=== PATIENT | female | born 1955 | race Caucasian/White ===

== ENCOUNTER → 2022-12-17 10:24 | Outpatient (CLI) | payer MEDICARE, SELFPAY | PROVIDERS: Family Provider Student in an Organized Health Care Education/Training Program; PCP Student in an Organized Health Care Education/Training Program; Referring Provider Student in an Organized Health Care Education/Training Program; Visit Provider Nurse Practitioner Family | DX: I89.0 Lymphedema, not elsewhere classified (principal); L97.222 Non-pressure chronic ulcer of left calf with fat layer exposed; G60.9 Hereditary and idiopathic neuropathy, unspecified | CPT/HCPCS: 11042; 11045; 87070; 87075; 87077; 87147; 87186; 87205; 99203; 99214 ==

== ENCOUNTER → 2022-12-20 15:11 | Outpatient (CLI) | payer MEDICARE, SELFPAY | PROVIDERS: PCP Student in an Organized Health Care Education/Training Program; Referring Provider Student in an Organized Health Care Education/Training Program; Visit Provider Surgery | DX: L97.222 Non-pressure chronic ulcer of left calf with fat layer exposed (principal); I89.0 Lymphedema, not elsewhere classified; R60.0 Localized edema; L53.9 Erythematous condition, unspecified; M79.662 Pain in left lower leg | CPT/HCPCS: 99213 ==

== ENCOUNTER → 2022-12-22 09:28 | Outpatient (CLI) | payer MEDICARE, SELFPAY | PROVIDERS: PCP Student in an Organized Health Care Education/Training Program; Referring Provider Student in an Organized Health Care Education/Training Program; Visit Provider Nurse Practitioner Family | DX: I89.0 Lymphedema, not elsewhere classified (principal); L97.222 Non-pressure chronic ulcer of left calf with fat layer exposed; M79.605 Pain in left leg | CPT/HCPCS: 99213 ==

== ENCOUNTER → 2022-12-24 09:06 | Outpatient (CLI) | payer MEDICARE, SELFPAY | PROVIDERS: Family Provider Student in an Organized Health Care Education/Training Program; PCP Student in an Organized Health Care Education/Training Program; Referring Provider Student in an Organized Health Care Education/Training Program; Visit Provider Nurse Practitioner Family | DX: I89.0 Lymphedema, not elsewhere classified (principal); L97.222 Non-pressure chronic ulcer of left calf with fat layer exposed; R60.0 Localized edema; L53.9 Erythematous condition, unspecified | CPT/HCPCS: 11042; 11045 ==

== ENCOUNTER → 2022-12-27 14:20 | Outpatient (CLI) | payer MEDICARE, SELFPAY | PROVIDERS: Family Provider Student in an Organized Health Care Education/Training Program; PCP Student in an Organized Health Care Education/Training Program; Referring Provider Student in an Organized Health Care Education/Training Program; Visit Provider Surgery | DX: I89.0 Lymphedema, not elsewhere classified (principal); L97.222 Non-pressure chronic ulcer of left calf with fat layer exposed | CPT/HCPCS: 99212 ==

== ENCOUNTER → 2022-12-29 14:43 | Outpatient (CLI) | payer MEDICARE, SELFPAY | PROVIDERS: Family Provider Student in an Organized Health Care Education/Training Program; PCP Student in an Organized Health Care Education/Training Program; Referring Provider Student in an Organized Health Care Education/Training Program; Visit Provider Surgery | DX: I89.0 Lymphedema, not elsewhere classified (principal); L97.222 Non-pressure chronic ulcer of left calf with fat layer exposed | CPT/HCPCS: 99212 ==

== ENCOUNTER → 2022-12-31 11:30 | Outpatient (CLI) | payer MEDICARE, SELFPAY | PROVIDERS: Family Provider Student in an Organized Health Care Education/Training Program; PCP Student in an Organized Health Care Education/Training Program; Referring Provider Student in an Organized Health Care Education/Training Program; Visit Provider Nurse Practitioner Family | DX: L97.222 Non-pressure chronic ulcer of left calf with fat layer exposed (principal); I89.0 Lymphedema, not elsewhere classified; L08.9 Local infection of the skin and subcutaneous tissue, unspecified; G90.09 Other idiopathic peripheral autonomic neuropathy; R60.0 Localized edema; L53.9 Erythematous condition, unspecified | CPT/HCPCS: 11042; 11045; 99212 ==

== ENCOUNTER → 2023-01-03 08:38 | Outpatient (CLI) | payer MEDICARE, SELFPAY | PROVIDERS: Family Provider Student in an Organized Health Care Education/Training Program; PCP Student in an Organized Health Care Education/Training Program; Referring Provider Ophthalmology; Visit Provider Surgery | DX: I89.0 Lymphedema, not elsewhere classified (principal); L97.222 Non-pressure chronic ulcer of left calf with fat layer exposed; M79.605 Pain in left leg | CPT/HCPCS: 99212 ==

== ENCOUNTER → 2023-01-05 09:10 | Outpatient (CLI) | payer MEDICARE, SELFPAY | PROVIDERS: Family Provider Student in an Organized Health Care Education/Training Program; PCP Student in an Organized Health Care Education/Training Program; Referring Provider Student in an Organized Health Care Education/Training Program; Visit Provider Surgery | DX: L97.929 Non-pressure chronic ulcer of unspecified part of left lower leg with unspecified severity (principal); R59.0 Localized enlarged lymph nodes; S81.802A Unspecified open wound, left lower leg, initial encounter; I89.0 Lymphedema, not elsewhere classified; R60.0 Localized edema; L53.9 Erythematous condition, unspecified | CPT/HCPCS: 87070; 87075; 87077; 87186; 87205; 93926; 99212 ==

== ENCOUNTER → 2023-01-05 10:36 | Outpatient (CLI) | payer MEDICARE, SELFPAY ==
--- NOTE | 2023-01-05 10:37 | DI.US.S_ITS ---
PROCEDURE: US ARTERIAL DUPLEX LE LT INDICATIONS: NON HEALING WOUND ON LEFT LOWER EXTREMITY, CALF TECHNIQUE: Color and pulse Doppler interrogation was performed of the left lower extremity arterial system, with image documentation. COMPARISON: None. FINDINGS: Examination is severely limited secondary to patient's body habitus and edema. Common femoral artery: 100 cm/sec, with monophasic flow. Deep femoral artery: 48 cm/sec, with monophasic flow. Proximal superficial femoral artery: 104 cm/sec, with monophasic flow. Mid superficial femoral artery: Not visualized Distal superficial femoral artery: Not visualized Popliteal artery: Not visualized Posterior tibial artery: Not visualized Anterior tibial artery/dorsalis pedis: not visualized Paredes-scale imaging description: Limited examination. Left inguinal lymph node measuring 38 mm x 18 mm x 38 mm. IMPRESSION: 1. Limited examination as above. 2. Findings suggestive of left aortoiliac inflow stenosis. 3. Left inguinal lymphadenopathy, with differential considerations including reactive adenopathy, metastatic disease, and lymphoma. Dictated by: Jose Rafael Harrell M.D. on 01/05/2023 at 11:42 Transcribed by: KATHE on 01/05/2023 at 11:44 Approved by: Jose Rafael Harrell M.D. on 01/05/2023 at 16:15
== END ==
PROVIDERS: Family Provider Student in an Organized Health Care Education/Training Program; PCP Student in an Organized Health Care Education/Training Program; Referring Provider Nurse Practitioner Family; Visit Provider Nurse Practitioner Family
DX: L97.929 Non-pressure chronic ulcer of unspecified part of left lower leg with unspecified severity (principal); R59.0 Localized enlarged lymph nodes
CPT/HCPCS: 93926

== ENCOUNTER → 2023-01-07 08:40 | Outpatient (CLI) | payer MEDICARE, SELFPAY | PROVIDERS: Family Provider Student in an Organized Health Care Education/Training Program; PCP Student in an Organized Health Care Education/Training Program; Referring Provider Ophthalmology; Visit Provider Nurse Practitioner Family | DX: L97.222 Non-pressure chronic ulcer of left calf with fat layer exposed (principal); I89.0 Lymphedema, not elsewhere classified; G90.09 Other idiopathic peripheral autonomic neuropathy; L08.9 Local infection of the skin and subcutaneous tissue, unspecified; L53.9 Erythematous condition, unspecified; R60.0 Localized edema | CPT/HCPCS: 99213 ==

== ENCOUNTER → 2023-01-10 11:21 | Outpatient (CLI) | payer MEDICARE, SELFPAY | PROVIDERS: Family Provider Student in an Organized Health Care Education/Training Program; PCP Student in an Organized Health Care Education/Training Program; Referring Provider Student in an Organized Health Care Education/Training Program; Visit Provider Surgery | DX: I89.0 Lymphedema, not elsewhere classified (principal); L97.222 Non-pressure chronic ulcer of left calf with fat layer exposed; R60.0 Localized edema; L53.9 Erythematous condition, unspecified | CPT/HCPCS: 99213 ==

== ENCOUNTER → 2023-01-12 08:43 | Outpatient (CLI) | payer MEDICARE, SELFPAY | PROVIDERS: Family Provider Student in an Organized Health Care Education/Training Program; PCP Student in an Organized Health Care Education/Training Program; Referring Provider Student in an Organized Health Care Education/Training Program; Visit Provider Surgery | DX: I89.0 Lymphedema, not elsewhere classified (principal); L97.222 Non-pressure chronic ulcer of left calf with fat layer exposed | CPT/HCPCS: 99212 ==

== ENCOUNTER → 2023-01-14 08:59 | Outpatient (CLI) | payer MEDICARE, SELFPAY | PROVIDERS: Family Provider Student in an Organized Health Care Education/Training Program; PCP Student in an Organized Health Care Education/Training Program; Referring Provider Ophthalmology; Visit Provider Physician Assistant | DX: I89.0 Lymphedema, not elsewhere classified (principal); L97.322 Non-pressure chronic ulcer of left ankle with fat layer exposed | CPT/HCPCS: 99212 ==

== ENCOUNTER → 2023-01-18 09:32 | Outpatient (CLI) | payer MEDICARE, SELFPAY | PROVIDERS: Family Provider Student in an Organized Health Care Education/Training Program; PCP Student in an Organized Health Care Education/Training Program; Referring Provider Ophthalmology; Visit Provider Surgery | DX: L97.222 Non-pressure chronic ulcer of left calf with fat layer exposed (principal); I89.0 Lymphedema, not elsewhere classified; L89.891 Pressure ulcer of other site, stage 1; G90.09 Other idiopathic peripheral autonomic neuropathy; C54.1 Malignant neoplasm of endometrium; E66.9 Obesity, unspecified; Z68.44 Body mass index [BMI] 60.0-69.9, adult; R60.0 Localized edema; L53.9 Erythematous condition, unspecified | CPT/HCPCS: 11042; 99212; 99214 ==

== ENCOUNTER → 2023-01-20 09:28 | Outpatient (CLI) | payer MEDICARE, SELFPAY | PROVIDERS: Family Provider Student in an Organized Health Care Education/Training Program; PCP Student in an Organized Health Care Education/Training Program; Referring Provider Ophthalmology; Visit Provider Surgery | DX: I89.0 Lymphedema, not elsewhere classified (principal); L97.222 Non-pressure chronic ulcer of left calf with fat layer exposed; L89.891 Pressure ulcer of other site, stage 1; R60.0 Localized edema | CPT/HCPCS: 99213 ==

== ENCOUNTER → 2023-01-25 10:37 | Outpatient (CLI) | payer MEDICARE, SELFPAY | PROVIDERS: Family Provider Student in an Organized Health Care Education/Training Program; PCP Student in an Organized Health Care Education/Training Program; Referring Provider Ophthalmology; Visit Provider Surgery | DX: I89.0 Lymphedema, not elsewhere classified (principal); L08.9 Local infection of the skin and subcutaneous tissue, unspecified; L97.222 Non-pressure chronic ulcer of left calf with fat layer exposed; L89.891 Pressure ulcer of other site, stage 1; R60.0 Localized edema | CPT/HCPCS: 11042 ==

== ENCOUNTER → 2023-01-28 10:00 | Outpatient (CLI) | payer MEDICARE, SELFPAY | PROVIDERS: Family Provider Student in an Organized Health Care Education/Training Program; PCP Student in an Organized Health Care Education/Training Program; Referring Provider Student in an Organized Health Care Education/Training Program; Visit Provider Physician Assistant | DX: I89.0 Lymphedema, not elsewhere classified (principal); L97.222 Non-pressure chronic ulcer of left calf with fat layer exposed; R60.0 Localized edema; L89.891 Pressure ulcer of other site, stage 1 | CPT/HCPCS: 29581 ==

== ENCOUNTER → 2023-02-01 08:35 | Outpatient (CLI) | payer MEDICARE, SELFPAY | PROVIDERS: Family Provider Student in an Organized Health Care Education/Training Program; PCP Student in an Organized Health Care Education/Training Program; Referring Provider Ophthalmology; Visit Provider Surgery | DX: I89.0 Lymphedema, not elsewhere classified (principal); L97.222 Non-pressure chronic ulcer of left calf with fat layer exposed; L89.891 Pressure ulcer of other site, stage 1; L97.811 Non-pressure chronic ulcer of other part of right lower leg limited to breakdown of skin | CPT/HCPCS: 11042; 97597; 97598; 99213 ==

== ENCOUNTER → 2023-02-04 08:45 | Outpatient (CLI) | payer MEDICARE, SELFPAY | PROVIDERS: Family Provider Student in an Organized Health Care Education/Training Program; PCP Student in an Organized Health Care Education/Training Program; Referring Provider Student in an Organized Health Care Education/Training Program; Visit Provider Physician Assistant | DX: I89.0 Lymphedema, not elsewhere classified (principal); L97.222 Non-pressure chronic ulcer of left calf with fat layer exposed; L89.891 Pressure ulcer of other site, stage 1; L97.811 Non-pressure chronic ulcer of other part of right lower leg limited to breakdown of skin; R60.0 Localized edema | CPT/HCPCS: 29581 ==

== ENCOUNTER → 2023-02-08 08:31 | Outpatient (CLI) | payer MEDICARE, SELFPAY | PROVIDERS: Family Provider Student in an Organized Health Care Education/Training Program; PCP Student in an Organized Health Care Education/Training Program; Referring Provider Ophthalmology; Visit Provider Surgery | DX: I89.0 Lymphedema, not elsewhere classified (principal); L08.9 Local infection of the skin and subcutaneous tissue, unspecified; L97.222 Non-pressure chronic ulcer of left calf with fat layer exposed; L89.891 Pressure ulcer of other site, stage 1; L97.812 Non-pressure chronic ulcer of other part of right lower leg with fat layer exposed; R60.0 Localized edema | CPT/HCPCS: 15271; 97597; 97598; Q4196 ==

== ENCOUNTER → 2023-02-11 09:30 | Outpatient (CLI) | payer MEDICARE, SELFPAY | PROVIDERS: Family Provider Student in an Organized Health Care Education/Training Program; PCP Student in an Organized Health Care Education/Training Program; Referring Provider Ophthalmology; Visit Provider Physician Assistant | DX: I89.0 Lymphedema, not elsewhere classified (principal); L97.222 Non-pressure chronic ulcer of left calf with fat layer exposed; L89.891 Pressure ulcer of other site, stage 1; L97.812 Non-pressure chronic ulcer of other part of right lower leg with fat layer exposed | CPT/HCPCS: 29581 ==

== ENCOUNTER → 2023-02-15 10:34 | Outpatient (CLI) | payer MEDICARE, SELFPAY | PROVIDERS: Family Provider Student in an Organized Health Care Education/Training Program; PCP Student in an Organized Health Care Education/Training Program; Referring Provider Student in an Organized Health Care Education/Training Program; Visit Provider Surgery | DX: I89.0 Lymphedema, not elsewhere classified (principal); L97.222 Non-pressure chronic ulcer of left calf with fat layer exposed; L89.891 Pressure ulcer of other site, stage 1; L97.812 Non-pressure chronic ulcer of other part of right lower leg with fat layer exposed | CPT/HCPCS: 11042; 87070; 87075; 87205; 97597; 99213 ==

== ENCOUNTER → 2023-02-21 14:57 | Outpatient (CLI) | payer MEDICARE, SELFPAY | PROVIDERS: Family Provider Student in an Organized Health Care Education/Training Program; PCP Student in an Organized Health Care Education/Training Program; Referring Provider Student in an Organized Health Care Education/Training Program; Visit Provider Surgery | DX: I89.0 Lymphedema, not elsewhere classified (principal); L97.222 Non-pressure chronic ulcer of left calf with fat layer exposed; L89.891 Pressure ulcer of other site, stage 1; L97.812 Non-pressure chronic ulcer of other part of right lower leg with fat layer exposed | CPT/HCPCS: 11042; 97597; 99212; 99213 ==

== ENCOUNTER → 2023-02-24 09:59 | Outpatient (CLI) | payer MEDICARE, SELFPAY | PROVIDERS: Family Provider Student in an Organized Health Care Education/Training Program; PCP Student in an Organized Health Care Education/Training Program; Referring Provider Student in an Organized Health Care Education/Training Program; Visit Provider Surgery | DX: I89.0 Lymphedema, not elsewhere classified (principal); S81.802A Unspecified open wound, left lower leg, initial encounter; S81.801A Unspecified open wound, right lower leg, initial encounter; L89.891 Pressure ulcer of other site, stage 1; R60.0 Localized edema | CPT/HCPCS: 29581 ==

== ENCOUNTER → 2023-02-28 09:15 | Outpatient (CLI) | payer MEDICARE, SELFPAY | PROVIDERS: Family Provider Student in an Organized Health Care Education/Training Program; PCP Student in an Organized Health Care Education/Training Program; Referring Provider Student in an Organized Health Care Education/Training Program; Visit Provider Surgery | DX: I89.0 Lymphedema, not elsewhere classified (principal); L97.222 Non-pressure chronic ulcer of left calf with fat layer exposed; L97.812 Non-pressure chronic ulcer of other part of right lower leg with fat layer exposed; L89.891 Pressure ulcer of other site, stage 1; R60.0 Localized edema; L03.115 Cellulitis of right lower limb; G62.9 Polyneuropathy, unspecified; C54.1 Malignant neoplasm of endometrium; E66.01 Morbid (severe) obesity due to excess calories; Z68.44 Body mass index [BMI] 60.0-69.9, adult; Z92.21 Personal history of antineoplastic chemotherapy; Z59.02 Unsheltered homelessness | CPT/HCPCS: 11042; 87070; 87075; 87186; 87205; 99213 ==

== ENCOUNTER → 2023-03-08 08:51 | Outpatient (CLI) | payer MEDICARE, SELFPAY | PROVIDERS: Family Provider Student in an Organized Health Care Education/Training Program; PCP Student in an Organized Health Care Education/Training Program; Referring Provider Student in an Organized Health Care Education/Training Program; Visit Provider Surgery | DX: I89.0 Lymphedema, not elsewhere classified (principal); L97.222 Non-pressure chronic ulcer of left calf with fat layer exposed; L97.812 Non-pressure chronic ulcer of other part of right lower leg with fat layer exposed | CPT/HCPCS: 11042 ==

== ENCOUNTER → 2023-03-10 09:10 | Outpatient (CLI) | payer MEDICARE, SELFPAY | PROVIDERS: Family Provider Student in an Organized Health Care Education/Training Program; PCP Student in an Organized Health Care Education/Training Program; Referring Provider Student in an Organized Health Care Education/Training Program; Visit Provider Surgery | DX: I89.0 Lymphedema, not elsewhere classified (principal); L97.222 Non-pressure chronic ulcer of left calf with fat layer exposed; R60.0 Localized edema | CPT/HCPCS: 99214 ==

== ENCOUNTER → 2023-03-15 08:56 | Outpatient (CLI) | payer MEDICARE, SELFPAY | PROVIDERS: Family Provider Student in an Organized Health Care Education/Training Program; PCP Student in an Organized Health Care Education/Training Program; Referring Provider Ophthalmology; Visit Provider Surgery | DX: I89.0 Lymphedema, not elsewhere classified (principal); L97.222 Non-pressure chronic ulcer of left calf with fat layer exposed; C54.1 Malignant neoplasm of endometrium | CPT/HCPCS: 11042 ==

== ENCOUNTER → 2023-03-17 09:27 | Outpatient (CLI) | payer MEDICARE, SELFPAY | PROVIDERS: Family Provider Student in an Organized Health Care Education/Training Program; PCP Student in an Organized Health Care Education/Training Program; Referring Provider Student in an Organized Health Care Education/Training Program; Visit Provider Surgery | DX: I89.0 Lymphedema, not elsewhere classified (principal); L97.222 Non-pressure chronic ulcer of left calf with fat layer exposed | CPT/HCPCS: 99214 ==

== ENCOUNTER → 2023-03-22 08:58 | Outpatient (CLI) | payer MEDICARE, SELFPAY | PROVIDERS: Family Provider Student in an Organized Health Care Education/Training Program; PCP Student in an Organized Health Care Education/Training Program; Referring Provider Ophthalmology; Visit Provider Surgery | DX: I89.0 Lymphedema, not elsewhere classified (principal); L97.222 Non-pressure chronic ulcer of left calf with fat layer exposed; R60.0 Localized edema | CPT/HCPCS: 29581 ==

== ENCOUNTER → 2023-03-29 08:38 | Outpatient (CLI) | payer MEDICARE, SELFPAY | PROVIDERS: Family Provider Student in an Organized Health Care Education/Training Program; PCP Student in an Organized Health Care Education/Training Program; Referring Provider Ophthalmology; Visit Provider Surgery | DX: I89.0 Lymphedema, not elsewhere classified (principal); L97.222 Non-pressure chronic ulcer of left calf with fat layer exposed; G90.09 Other idiopathic peripheral autonomic neuropathy | CPT/HCPCS: 11042; 99212; 99213 ==

== ENCOUNTER → 2023-03-31 09:01 | Outpatient (CLI) | payer MEDICARE, SELFPAY | PROVIDERS: Family Provider Student in an Organized Health Care Education/Training Program; PCP Student in an Organized Health Care Education/Training Program; Referring Provider Ophthalmology; Visit Provider Surgery | DX: I89.0 Lymphedema, not elsewhere classified (principal); S81.802A Unspecified open wound, left lower leg, initial encounter; R60.0 Localized edema | CPT/HCPCS: 99212 ==

== ENCOUNTER → 2023-04-05 08:26 | Outpatient (CLI) | payer MEDICARE, SELFPAY | PROVIDERS: Family Provider Student in an Organized Health Care Education/Training Program; PCP Student in an Organized Health Care Education/Training Program; Referring Provider Ophthalmology; Visit Provider Surgery | DX: I89.0 Lymphedema, not elsewhere classified (principal); L97.222 Non-pressure chronic ulcer of left calf with fat layer exposed; G60.9 Hereditary and idiopathic neuropathy, unspecified; R60.0 Localized edema | CPT/HCPCS: 11042 ==

== ENCOUNTER → 2023-04-07 08:31 | Outpatient (CLI) | payer MEDICARE, SELFPAY | PROVIDERS: Family Provider Student in an Organized Health Care Education/Training Program; PCP Student in an Organized Health Care Education/Training Program; Referring Provider Ophthalmology; Visit Provider Surgery | DX: L97.221 Non-pressure chronic ulcer of left calf limited to breakdown of skin (principal) | CPT/HCPCS: 99213 ==

== ENCOUNTER → 2023-04-12 08:38 | Outpatient (CLI) | payer MEDICARE, SELFPAY | PROVIDERS: Family Provider Student in an Organized Health Care Education/Training Program; PCP Student in an Organized Health Care Education/Training Program; Referring Provider Ophthalmology; Visit Provider Surgery | DX: I89.0 Lymphedema, not elsewhere classified (principal); L97.222 Non-pressure chronic ulcer of left calf with fat layer exposed; C54.1 Malignant neoplasm of endometrium; R60.0 Localized edema | CPT/HCPCS: 99212; 99213 ==

== ENCOUNTER → 2023-04-19 08:35 | Outpatient (CLI) | payer MEDICARE, SELFPAY | PROVIDERS: Family Provider Student in an Organized Health Care Education/Training Program; PCP Student in an Organized Health Care Education/Training Program; Referring Provider Ophthalmology; Visit Provider Surgery | DX: I89.0 Lymphedema, not elsewhere classified (principal); R60.0 Localized edema | CPT/HCPCS: 99212; 99213 ==

== ENCOUNTER → 2023-05-03 09:17 | Outpatient (CLI) | payer MEDICARE, SELFPAY | PROVIDERS: Family Provider Student in an Organized Health Care Education/Training Program; PCP Student in an Organized Health Care Education/Training Program; Referring Provider Ophthalmology; Visit Provider Surgery | DX: I89.0 Lymphedema, not elsewhere classified (principal) | CPT/HCPCS: 99212; 99213 ==

== ENCOUNTER → 2023-08-18 15:32 | Outpatient (CLI) | payer MEDICARE, SELFPAY | PROVIDERS: Family Provider Student in an Organized Health Care Education/Training Program; PCP Student in an Organized Health Care Education/Training Program; Referring Provider Ophthalmology; Visit Provider Physician Assistant | DX: S91.101A Unspecified open wound of right great toe without damage to nail, initial encounter (principal); R60.0 Localized edema; L53.9 Erythematous condition, unspecified | CPT/HCPCS: 11042; 99213; 99214 ==

== ENCOUNTER → 2023-08-24 13:25 | Outpatient (CLI) | payer MEDICARE, SELFPAY | LOC: WC 13:26 | PROVIDERS: Family Provider Student in an Organized Health Care Education/Training Program; PCP Student in an Organized Health Care Education/Training Program; Referring Provider Student in an Organized Health Care Education/Training Program; Visit Provider Surgery | DX: S91.301A Unspecified open wound, right foot, initial encounter (principal); R60.0 Localized edema; L53.9 Erythematous condition, unspecified | CPT/HCPCS: 99212 ==

== ENCOUNTER 2023-09-01 13:00 | Outpatient (RCR) | payer MEDICARE, SELFPAY ==
--- NOTE | 2023-01-11 16:24 | PT.OIE ---
Current Diagnoses Lymphedema, not elsewhere classified (01/11/23) Non-pressure chronic ulcer of other part of left lower leg with fat layer exposed (01/11/23) Soft tissue disorder, unspecified (01/11/23) Difficulty in walking, not elsewhere classified (01/11/23) Visit Care Team Role Provider Type Geovani Elder DO Family Provider Non-Staff Primary Care Provider Specialty: Medical Address: [address] [place] [address] Dr. Mike De Los Santos, [place], [address] Email: Nicolás Schrader MD Attending Provider Physician Referring Provider Specialty: Wound Care Address: [address] [place] [address], [id number] Email: [email or web address] Physical Therapy Initial Evaluation PT-OP-A Visit Information Start: 01/10/23 16:14 Freq: Status: Active Protocol: Document 01/11/23 07:56 [facility] (Rec: 01/11/23 09:[address] [facility] [id number]) Out-Patient Physical Therapy Visit Information Visit Information Visit Type Initial Evaluation Visit Start Time 08:00 Visit Stop Time 09:25 Total Visit Minutes 85 Visit Number 1 Evaluation Information Evaluation Date 01/11/23 Precautions Precautions endometrial cancer, nonhealing wound left LE PT-OP-B Current Condition Start: 01/10/23 16:14 Freq: Status: Active Protocol: Document 01/11/23 07:56 [facility] (Rec: 01/11/23 09:[address] [facility] [id number]) Current Condition History of Current Condition Onset Date 22 months Current Complaints stella LE lymphedema History of Current Condition was travelling and knew something was wrong with her left leg, went to ER diagnosed with cellulitis stella LE's, was in hospital 28 days. 3 days before discharge developed lymphedema. Went to [facility] wound care, did not have good experience, no recommendation for PT. Now going to wound care at [facility] and PT was recommended. Using Vaseline due to dryness in legs. Has had multiple infections since that time. Then last year having vaginal bleeding and diagnosed with endometrial cancer. Has had 3 treatments of chemo. Can't have Obgyn surgery until infection in leg healed, possiblty more chemo. Sees oncologist tomorrow Dr. Merrick Hurtado in [place] at [facility]. Prior Treatments and Tests PMH: cellulitis, lymphedema stella LE's, peripheral neuropathy, morbid obesity, hysteroscopy, chronic non- healing ulcer left LE Future Testing and Treatments Planned Preparing for Obgyn surgery for endometrial cancer. Treatment Goals Patient/Caregiver Goals Decrease lymphedema Prior Functional Status Baseline Function- ADL's Modified Independent Baseline Function- Mobility Modified Independent Current Functional Impairments (Reported) Functional Limitations- Mobility/Gait uses FWW, PT adjusted today due to back much lower than front; patient reported can stand up better now. PT-OP-C Subjective Start: 01/10/23 16:14 Freq: Status: Active Protocol: Document 01/11/23 07:[address] [facility] (Rec: 01/11/23 16:[address] [facility] [id number]) Patient Questionnaires Lymphedema Life Impact Score Lymphedema Score 56 OP-PT Pain Assessment Pain Assessment Grid Paper Pain Assessment Grid Completed No PT-OP-G Mobility & Gait Start: 01/10/23 16:14 Freq: Status: Active Protocol: Document 01/11/23 07:[address] [facility] (Rec: 01/11/23 16:[address] [facility] [id number]) OP Mobility Evaluation Bed Mobility Supine to and from Sit mod assist for LE's Transfers Sit to Stand use of FWW with SBA OP Gait Assessment Gait Gait Assistance Required: Independent Distance (Feet) 60 Assistive Devices Assistive Device Front Wheeled Walker Orthotic/Prosthetic Devices or Brace: No Gait Deviations General Gait Pattern Decreased Stride Length, Decreased Feet Clearance, Flexed Trunk,Wide Based Gait Comments Gait Comments limited by weight of legs due to lymphedema PT-OP-J Posture/Palpation/Skin Start: 01/10/23 16:14 Freq: Status: Active Protocol: Document 01/11/23 07:[address] [facility] (Rec: 01/11/23 16:[address] [facility] [id number]) Skin Assessment Other Assessments Skin Assessment Comments hyperkeratosis and elephatiasis stella LE's PT-OP-K Range of Motion Start: 01/10/23 16:14 Freq: Status: Active Protocol: Document 01/11/23 07:[address] [facility] (Rec: 01/11/23 16:[address] [facility] [id number]) Hip Goniometric Range of Motion Hip ROM Limitations Hip ROM Limitations Swelling Comments moderate limitations Knee Goniometric Range of Motion Knee ROM Limitations Knee ROM Limitations Swelling Comments moderate limitations Ankle and Foot Goniometric Range of Motion Ankle and Foot ROM Limitations ROM Limitations Swelling Comments moderate limitations PT-OP-M Strength Start: 01/10/23 16:14 Freq: Status: Active Protocol: Document 01/11/23 07:[address] [facility] (Rec: 01/11/23 16:[address] [facility] [id number]) Hip Strength Hip Manual Muscle Testing stella Comments less than anti-gravity stregnth, requires assistance for legs on and off treatment table. No MMT Knee Strength Knee Manual Muscle Testing stella Comments has anti-gravity strength ext. No MMT Ankle/Foot Strength Ankle and Foot Manual Muscle Testing stella Comments has anti gravity strength. No MMT PT-OP-N Lymphedema Start: 01/10/23 16:14 Freq: Status: Active Protocol: Document 01/11/23 07:[address] [facility] (Rec: 01/11/23 09:[address] [facility] [id number]) Lymphedema Measurements Lower Extremity Circumference Measurements Right Affected MT Heads 27 cm Mid-foot 29.3 cm Medial Malleolus 43.8 cm 10 cm From Medial Malleolus 62.5 cm 20 cm From Medial Malleolus 76 cm 30 cm From Medial Malleolus 85.9 cm 40 cm From Medial Malleolus 84.5 cm 50 cm From Medial Malleolus 88.6 cm 60 cm From Medial Malleolus 81.5 cm 70 cm From Medial Malleolus 88.5 cm Knee Joint 78.2 cm Left Affected MT Heads 25.6 cm Mid-foot 28.5 cm Medial Malleolus 50.7 cm 10 cm From Medial Malleolus 57 cm 20 cm From Medial Malleolus 66.4 cm 30 cm From Medial Malleolus 75.3 cm 40 cm From Medial Malleolus 74.8 cm 50 cm From Medial Malleolus 77.3 cm 60 cm From Medial Malleolus 82.7 cm 70 cm From Medial Malleolus 84.3 cm Knee Joint 74.8 cm - Over wound dressing distal left LE PT-OP-Q Treatments Start: 01/10/23 16:14 Freq: Status: Active Protocol: Document 01/11/23 07:[address] [facility] (Rec: 01/11/23 16:[address] [facility] [id number]) Lymphedema Treatment Lymphedema Wrapping Body Location stella LE's Materials toe wraps, Artiflex (3 rolls), Comprilan (6,8,10,12) toes to knees Sequential Lymphedema Exercises Comments instructed, HO issued Compression Garment Assessment Compression Garment Assessment Details written information given Patient Education Lymphedema Pathology instructed Lymphedema Prevention HO issued Lymphedema Precautions HO issued Compression Garments written information issued Self Manual Lymphatic Drainage given information for videos Sequential Lymphedema Exercises given written HO PT-OP-T Assessment and Plan Start: 01/10/23 16:14 Freq: Status: Active Protocol: Document 01/11/23 07:[address] [facility] (Rec: 01/11/23 09:[address] [facility] [id number]) Physical Therapy Assessment Rehab Potential Rehabilitation Potential Good Impairments Impairments Activity Tolerance,Edema,Soft Tissue Mobility Goals Three Impairment impaired mobility and activity tolerance related to size of her legs Impairment uses FWW and doesn't go out of the house other than for medical appointments Short Term Goal (STG) Patient will be able to ambulate 500 ft with SPC with min assist STG Duration 03/13/23 Alf Goal (LTG) Patient will be able to ambulate at least 1000 feet with least restrictive device to allow for return to community mobility LTG Duration 04/13/23 Two Impairment LYmphedema life impact scale 56% Short Term Goal (STG) Decrease Lymphedema life impact scale to no greater than 40% STG Duration 03/13/23 Alf Goal (LTG) Decrease lymphedema life impact scale to no greater than 25% as measure of improved activity tolerance and quality of life LTG Duration 04/13/23 One Impairment Lymphedema stella LE's Short Term Goal (STG) Patient to be instructed in all aspects of lymphedema care to include skin care, MLD, compression, and lymphedema exercises STG Duration 03/13/23 Alf Goal (LTG) Patient to be independent in all aspects of lymphedema care , LE circumferential measurements to be stable (no increase or decrease greater than 1 cm over the course of 1 week), and patient to obtain appropriate compression garments for stella LE lymphedema managements and possibly sequential pneumatic pump. LTG Duration 04/13/23 Assessment Summary Assessment Patient presents to PT with severe function-limiting lymphedema bilateral LE's right greater than left, non- healing wound left LE. She has hyperkeratosis and elephantiasis stella LE's. Has never had any treatment for the lymphedema except was prescribed a diuretic. [facility] wound clinic who prescribed PT for lymphedema treatment. Patient evaluated today and lymphedema bandaging was provided from toes to knees, plan for bandaging toes to upper thigh next session pending tolerance. Patient education regarding self- managment for lymphedema initiated today Patient will benefit from PT for lymphedema management including manual lymphatic drainage, compression, skin care, lymphedema exercises with patient education for self- management. When size of legs reduced and stable will facilitate patient obtaining appropriate compression garments for stella LE's. Physical Therapy Plan Frequency and Duration Frequency of Treatment 24 Duration of treatment (weeks) 12 Plan of Care Start Date 01/11/23 Plan of Care End Date 04/13/23 Therapeutic Interventions Therapeutic Interventions Home Exercise Program, Lymphedema Management,Manual Therapy,Patient/Caregiver Education,Self-Care/Home Management,Therapeutic Activities,Therapeutic Exercises Next Visit Focus/Plan Next Note Type Treatment Note Next Visit Plan Continue patient education, evaluate response to compression bandaging and continue, thigh high next session. MLD and lymphedema exercises as time allows.
--- NOTE | 2023-01-11 16:24 | PT.OPPOC ---
Physical, Occupational & Speech Therapy At [facility] Current Diagnoses Lymphedema, not elsewhere classified (01/11/23) Non-pressure chronic ulcer of other part of left lower leg with fat layer exposed (01/11/23) Soft tissue disorder, unspecified (01/11/23) Difficulty in walking, not elsewhere classified (01/11/23) Visit Care Team Role Provider Type Geovani Elder DO Family Provider Non-Staff Primary Care Provider Specialty: Medical Address: [address] [place] [address] [address], [place], [address] Email: Nicolás Schrader MD Attending Provider Physician Referring Provider Specialty: Wound Care Address: [address] [place] [address], [address] Email: [email or web address] Plan Of Care PT-OP-T Assessment and Plan Start: 01/10/23 16:14 Freq: Status: Active Protocol: Document 01/11/23 07:56 [facility] (Rec: 01/11/23 09:46 [facility] [id number]) Physical Therapy Assessment Rehab Potential Rehabilitation Potential Good Impairments Impairments Activity Tolerance,Edema,Soft Tissue Mobility Goals Three Impairment impaired mobility and activity tolerance related to size of her legs Impairment uses FWW and doesn't go out of the house other than for medical appointments Short Term Goal (STG) Patient will be able to ambulate 500 ft with SPC with min assist STG Duration 03/13/23 Reproductive Healthcare Assistant Goal (LTG) Patient will be able to ambulate at least 1000 feet with least restrictive device to allow for return to community mobility LTG Duration 04/13/23 Two Impairment LYmphedema life impact scale 56% Short Term Goal (STG) Decrease Lymphedema life impact scale to no greater than 40% STG Duration 03/13/23 Reproductive Healthcare Assistant Goal (LTG) Decrease lymphedema life impact scale to no greater than 25% as measure of improved activity tolerance and quality of life LTG Duration 04/13/23 One Impairment Lymphedema stella LE's Short Term Goal (STG) Patient to be instructed in all aspects of lymphedema care to include skin care, MLD, compression, and lymphedema exercises STG Duration 03/13/23 Reproductive Healthcare Assistant Goal (LTG) Patient to be independent in all aspects of lymphedema care , LE circumferential measurements to be stable (no increase or decrease greater than 1 cm over the course of 1 week), and patient to obtain appropriate compression garments for stella LE lymphedema managements and possibly sequential pneumatic pump. LTG Duration 04/13/23 Assessment Summary Assessment Patient presents to PT with severe function-limiting lymphedema bilateral LE's right greater than left, non- healing wound left LE. She has hyperkeratosis and elephantiasis stella LE's. Has never had any treatment for the lymphedema except was prescribed a diuretic. [facility] wound clinic who prescribed PT for lymphedema treatment. Patient evaluated today and lymphedema bandaging was provided from toes to knees, plan for bandaging toes to upper thigh next session pending tolerance. Patient education regarding self- managment for lymphedema initiated today Patient will benefit from PT for lymphedema management including manual lymphatic drainage, compression, skin care, lymphedema exercises with patient education for self- management. When size of legs reduced and stable will facilitate patient obtaining appropriate compression garments for stella LE's. Physical Therapy Plan Frequency and Duration Frequency of Treatment 24 Duration of treatment (weeks) 12 Plan of Care Start Date 01/11/23 Plan of Care End Date 04/13/23 Therapeutic Interventions Therapeutic Interventions Home Exercise Program, Lymphedema Management,Manual Therapy,Patient/Caregiver Education,Self-Care/Home Management,Therapeutic Activities,Therapeutic Exercises Next Visit Focus/Plan Next Note Type Treatment Note Next Visit Plan Continue patient education, evaluate response to compression bandaging and continue, thigh high next session. MLD and lymphedema exercises as time allows. Plan of Care Dates Plan of Care Start Date 01/11/23 Plan of Care End Date 04/13/23 Electronically Signed by: Lizeth Howard, PT 01/11/23 0033 If you are in agreement with this Plan of Care, please return a signed and dated copy. I have reviewed this Plan of Care and certify that the skilled therapy services above are required to meet the patient?s needs. Physician Signature Date Printed Name and Credentials Clinical Instructor Signature Printed Name and Credentials
--- NOTE | 2023-01-12 16:48 | PT.OTN ---
Current Diagnoses Lymphedema, not elsewhere classified (01/12/23) Non-pressure chronic ulcer of other part of left lower leg with fat layer exposed (01/12/23) Soft tissue disorder, unspecified (01/12/23) Difficulty in walking, not elsewhere classified (01/12/23) Physical Therapy Treatment Note PT-OP-A Visit Information Start: 01/10/23 16:14 Freq: Status: Active Protocol: Document 01/12/23 10:30 [facility] (Rec: 01/12/23 10:50 [facility] [id number]) Out-Patient Physical Therapy Visit Information Visit Information Visit Type Treatment Note Visit Start Time 10:30 Visit Stop Time 11:55 Total Visit Minutes 85 Visit Number 2 Evaluation Information Evaluation Date 01/11/23 Precautions Precautions endometrial cancer, nonhealing wound left LE PT-OP-B Current Condition Start: 01/10/23 16:14 Freq: Status: Active Protocol: Document 01/12/23 10:30 [facility]AK (Rec: 01/12/23 10:50 [facility] [id number]) Current Condition History of Current Condition Onset Date 22 months Current Complaints francisco LE lymphedema History of Current Condition was travelling and knew something was wrong with her left leg, went to ER diagnosed with cellulitis francisco LE's, was in hospital 28 days. 3 days before discharge developed lymphedema. Went to [facility] wound care, did not have good experience, no recommendation for PT. Now going to wound care at [facility] and PT was recommended. Using Vaseline due to dryness in legs. Has had multiple infections since that time. Then last year having vaginal bleeding and diagnosed with endometrial cancer. Has had 3 treatments of chemo. Can't have Obgyn surgery until infection in leg healed, possiblty more chemo. Sees oncologist tomorrow Dr. Merrick Hurtado in [place] at [facility]. Prior Treatments and Tests PMH: cellulitis, lymphedema francisco LE's, peripheral neuropathy, morbid obesity, hysteroscopy, chronic non- healing ulcer left LE Future Testing and Treatments Planned Preparing for Obgyn surgery for endometrial cancer. PT-OP-C Subjective Start: 01/10/23 16:14 Freq: Status: Active Protocol: Document 01/12/23 10:30 [facility]AK (Rec: 01/12/23 10:50 [facility] [id number]) OP-PT Subjective Patient Comments Patient Comments States bandages came down on right side, left stayed on a little better on left. Thinks some reduction in left leg. Didn't like toe wraps, requests try without. Wearing Tubigrip francisco LE's ankles to knees put on by wound care ( size J) Reports feeling very overwhelmed by what is required for lymphedema treatment. PT-OP-G Mobility & Gait Start: 01/10/23 16:14 Freq: Status: Active Protocol: Document 01/11/23 07:56 [facility] (Rec: 01/11/23 16:21 [facility] [id number]) OP Mobility Evaluation Bed Mobility Supine to and from Sit mod assist for LE's Transfers Sit to Stand use of FWW with SBA OP Gait Assessment Gait Gait Assistance Required: Independent Distance (Feet) 60 Assistive Devices Assistive Device Front Wheeled Walker Orthotic/Prosthetic Devices or Brace: No Gait Deviations General Gait Pattern Decreased Stride Length, Decreased Feet Clearance, Flexed Trunk,Wide Based Gait Comments Gait Comments limited by weight of legs due to lymphedema PT-OP-J Posture/Palpation/Skin Start: 01/10/23 16:14 Freq: Status: Active Protocol: Document 01/11/23 07:56 [facility] (Rec: 01/11/23 16:21 [facility] [id number]) Skin Assessment Other Assessments Skin Assessment Comments hyperkeratosis and elephatiasis francisco LE's PT-OP-K Range of Motion Start: 01/10/23 16:14 Freq: Status: Active Protocol: Document 01/11/23 07:56 [facility] (Rec: 01/11/23 16:21 [facility] [id number]) Hip Goniometric Range of Motion Hip ROM Limitations Hip ROM Limitations Swelling Comments moderate limitations Knee Goniometric Range of Motion Knee ROM Limitations Knee ROM Limitations Swelling Comments moderate limitations Ankle and Foot Goniometric Range of Motion Ankle and Foot ROM Limitations ROM Limitations Swelling Comments moderate limitations PT-OP-M Strength Start: 01/10/23 16:14 Freq: Status: Active Protocol: Document 01/11/23 07:56 [facility] (Rec: 01/11/23 16:21 [facility] [id number]) Hip Strength Hip Manual Muscle Testing francisco Comments less than anti-gravity stregnth, requires assistance for legs on and off treatment table. No MMT Knee Strength Knee Manual Muscle Testing francisco Comments has anti-gravity strength ext. No MMT Ankle/Foot Strength Ankle and Foot Manual Muscle Testing francisco Comments has anti gravity strength. No MMT PT-OP-N Lymphedema Start: 01/10/23 16:14 Freq: Status: Active Protocol: Document 01/11/23 07:56 [facility] (Rec: 01/11/23 09:46 [facility] [id number]) Lymphedema Measurements Lower Extremity Circumference Measurements Right Affected MT Heads 27 cm Mid-foot 29.3 cm Medial Malleolus 43.8 cm 10 cm From Medial Malleolus 62.5 cm 20 cm From Medial Malleolus 76 cm 30 cm From Medial Malleolus 85.9 cm 40 cm From Medial Malleolus 84.5 cm 50 cm From Medial Malleolus 88.6 cm 60 cm From Medial Malleolus 81.5 cm 70 cm From Medial Malleolus 88.5 cm Knee Joint 78.2 cm Left Affected MT Heads 25.6 cm Mid-foot 28.5 cm Medial Malleolus 50.7 cm 10 cm From Medial Malleolus 57 cm 20 cm From Medial Malleolus 66.4 cm 30 cm From Medial Malleolus 75.3 cm 40 cm From Medial Malleolus 74.8 cm 50 cm From Medial Malleolus 77.3 cm 60 cm From Medial Malleolus 82.7 cm 70 cm From Medial Malleolus 84.3 cm Knee Joint 74.8 cm - Over wound dressing distal left LE PT-OP-Q Treatments Start: 01/10/23 16:14 Freq: Status: Active Protocol: Document 01/12/23 10:30 [facility] (Rec: 01/12/23 16:43 [facility] [id number]) Lymphedema Treatment Lymphedema Wrapping Body Location francisco LE's MTP to upper thigh Materials Tricofix size J, Artiflex (6 rolls), Comprilan 6,8,10x2, 12x2, black foam left anti mccarthy Patient Education Compression Garments discussed, shown recommended Circ Aid full leg reduction kit Sequential Lymphedema Exercises Sci-Fit recumbant elliptical x 5 min, resistance of 1 Other Discussed use of lymphedema pump at home if approved by physician PT-OP-T Assessment and Plan Start: 01/10/23 16:14 Freq: Status: Active Protocol: Document 01/12/23 10:30 [facility] (Rec: 01/12/23 10:50 [facility] [id number]) Physical Therapy Assessment Impairments Impairments Activity Tolerance,Edema,Soft Tissue Mobility Goals Three Impairment impaired mobility and activity tolerance related to size of her legs Impairment uses FWW and doesn't go out of the house other than for medical appointments Short Term Goal (STG) Patient will be able to ambulate 500 ft with SPC with min assist STG Duration 03/13/23 Nursing Home Goal (LTG) Patient will be able to ambulate at least 1000 feet with least restrictive device to allow for return to community mobility LTG Duration 04/13/23 Two Impairment LYmphedema life impact scale 56% Short Term Goal (STG) Decrease Lymphedema life impact scale to no greater than 40% STG Duration 03/13/23 Elevator Constructor Helper Goal (LTG) Decrease lymphedema life impact scale to no greater than 25% as measure of improved activity tolerance and quality of life LTG Duration 04/13/23 One Impairment Lymphedema francisco LE's Short Term Goal (STG) Patient to be instructed in all aspects of lymphedema care to include skin care, MLD, compression, and lymphedema exercises STG Duration 03/13/23 Nursing Home Goal (LTG) Patient to be independent in all aspects of lymphedema care , LE circumferential measurements to be stable (no increase or decrease greater than 1 cm over the course of 1 week), and patient to obtain appropriate compression garments for francisco LE lymphedema managements and possibly sequential pneumatic pump. LTG Duration 04/13/23 Assessment Summary Assessment REviewed lymphedema POC, shown options for compression with PT recommendation for CircAid Reduction Kit Full leg with Juzo Compression wrap hip attachment; given written information to consider. Francisco LE lymphedema bandaging provided, difficulty due to size of legs and contours, some black foam used left mccarthy to improve cylindrical shape. Patient did experience some decrease in edema especially with left LE bandaging but right side slid down. Patient to PT today after wound care wearing size J therabaned francisco LE's ankles to knees, nothing on feet; provided size E for left foot and F for right foot for use if lymphedema bandaging slides down and patient unable to re-bandage. Also recommended patient consider Jovipak full leg transition as a bandage liner for improved protection and padding without need for foam, etc. This patient's lymphedema is severe and hard to manage, may need to consider use of Coban if unable to get bandages to stay up. Feel patient would benefit highly from use of sequential pneumatic compression pump and she informed me she has one but doesn't use. Physical Therapy Plan Frequency and Duration Frequency of Treatment 24 Duration of treatment (weeks) 12 Plan of Care Start Date 01/11/23 Plan of Care End Date 04/13/23 Therapeutic Interventions Therapeutic Interventions Home Exercise Program, Lymphedema Management,Manual Therapy,Patient/Caregiver Education,Self-Care/Home Management,Therapeutic Activities,Therapeutic Exercises Next Visit Focus/Plan Next Note Type Treatment Note Next Visit Plan Continue lymphedema management per POC. Further discussion of Circ Aid reduction kit full leg, determine appropriate size if patient wants to move forward. Also consider Jovipak full leg transition for use under bandages. Asked wound care nurse if patient ok to use compression pump at home given wound status; she will discuss with physician and get back to PT.
--- NOTE | 2023-01-18 11:59 | PT.OTN ---
Current Diagnoses Lymphedema, not elsewhere classified (01/18/23) Non-pressure chronic ulcer of other part of left lower leg with fat layer exposed (01/18/23) Soft tissue disorder, unspecified (01/18/23) Difficulty in walking, not elsewhere classified (01/18/23) Physical Therapy Treatment Note PT-OP-A Visit Information Start: 01/10/23 16:14 Freq: Status: Active Protocol: Document 01/18/23 10:23 [facility]AK (Rec: 01/18/23 10:46 [facility] [id number]) Out-Patient Physical Therapy Visit Information Visit Information Visit Type Treatment Note Visit Start Time 10:30 Visit Stop Time 11:55 Total Visit Minutes 80 Visit Number 4 Evaluation Information Evaluation Date 01/11/23 Precautions Precautions endometrial cancer, nonhealing wound left LE PT-OP-B Current Condition Start: 01/10/23 16:14 Freq: Status: Active Protocol: Document 01/18/23 10:23 [facility]AK (Rec: 01/18/23 10:46 [facility] [id number]) Current Condition History of Current Condition Onset Date 22 months Current Complaints stella LE lymphedema History of Current Condition was travelling and knew something was wrong with her left leg, went to ER diagnosed with cellulitis stella LE's, was in hospital 28 days. 3 days before discharge developed lymphedema. Went to [facility] wound care, did not have good experience, no recommendation for PT. Now going to wound care at [facility] and PT was recommended. Using Vaseline due to dryness in legs. Has had multiple infections since that time. Then last year having vaginal bleeding and diagnosed with endometrial cancer. Has had 3 treatments of chemo. Can't have Obgyn surgery until infection in leg healed, possiblty more chemo. Sees oncologist tomorrow Dr. Merrick Hurtado in [place] at [facility]. Prior Treatments and Tests PMH: cellulitis, lymphedema stella LE's, peripheral neuropathy, morbid obesity, hysteroscopy, chronic non- healing ulcer left LE Future Testing and Treatments Planned Preparing for Obgyn surgery for endometrial cancer. PT-OP-C Subjective Start: 01/10/23 16:14 Freq: Status: Active Protocol: Document 01/18/23 10:23 [facility]AK (Rec: 01/18/23 10:46 [facility] [id number]) OP-PT Subjective Patient Comments Patient Comments Sees oncologist tomorrow, will discuss surgery, chemo options. Living in car and hotel, will be able to try pump tonight at hotel. Hasn't recently because it is hard to carry into hotel. Looking into compression capris, has to wait until first of the month. Notified by RN in wound care patient has wound anterior ankle crease left; patient was feeling discomfort but thought it would be ok. RN and now PT instructed patient to remove if having pain. PT-OP-G Mobility & Gait Start: 01/10/23 16:14 Freq: Status: Active Protocol: Document 01/11/23 07:56 [facility] (Rec: 01/11/23 16:21 [facility] [id number]) OP Mobility Evaluation Bed Mobility Supine to and from Sit mod assist for LE's Transfers Sit to Stand use of FWW with SBA OP Gait Assessment Gait Gait Assistance Required: Independent Distance (Feet) 60 Assistive Devices Assistive Device Front Wheeled Walker Orthotic/Prosthetic Devices or Brace: No Gait Deviations General Gait Pattern Decreased Stride Length, Decreased Feet Clearance, Flexed Trunk,Wide Based Gait Comments Gait Comments limited by weight of legs due to lymphedema PT-OP-J Posture/Palpation/Skin Start: 01/10/23 16:14 Freq: Status: Active Protocol: Document 01/11/23 07:56 [facility] (Rec: 01/11/23 16:21 [facility] [id number]) Skin Assessment Other Assessments Skin Assessment Comments hyperkeratosis and elephatiasis stella LE's PT-OP-K Range of Motion Start: 01/10/23 16:14 Freq: Status: Active Protocol: Document 01/11/23 07:56 [facility] (Rec: 01/11/23 16:21 [facility] [id number]) Hip Goniometric Range of Motion Hip ROM Limitations Hip ROM Limitations Swelling Comments moderate limitations Knee Goniometric Range of Motion Knee ROM Limitations Knee ROM Limitations Swelling Comments moderate limitations Ankle and Foot Goniometric Range of Motion Ankle and Foot ROM Limitations ROM Limitations Swelling Comments moderate limitations PT-OP-M Strength Start: 01/10/23 16:14 Freq: Status: Active Protocol: Document 01/11/23 07:56 [facility] (Rec: 01/11/23 16:21 [facility] [id number]) Hip Strength Hip Manual Muscle Testing stella Comments less than anti-gravity stregnth, requires assistance for legs on and off treatment table. No MMT Knee Strength Knee Manual Muscle Testing stella Comments has anti-gravity strength ext. No MMT Ankle/Foot Strength Ankle and Foot Manual Muscle Testing stella Comments has anti gravity strength. No MMT PT-OP-N Lymphedema Start: 01/10/23 16:14 Freq: Status: Active Protocol: Document 01/18/23 10:23 [facility] (Rec: 01/18/23 10:58 [facility] [id number]) Lymphedema Measurements Lower Extremity Circumference Measurements Right Affected MT Heads 27.5 cm Mid-foot 28 cm Medial Malleolus 43 cm 10 cm From Medial Malleolus 57.6 cm 20 cm From Medial Malleolus 77.6 cm 30 cm From Medial Malleolus 82.6 cm 40 cm From Medial Malleolus 77.4 cm 50 cm From Medial Malleolus 89.4 cm 60 cm From Medial Malleolus 85 cm 70 cm From Medial Malleolus 89.9 cm Knee Joint 77.6 cm Left Affected MT Heads 27.5 cm Mid-foot 30.5 cm Medial Malleolus 41.25 cm 10 cm From Medial Malleolus 55.6 cm 20 cm From Medial Malleolus 69.8 cm 30 cm From Medial Malleolus 72.5 cm 40 cm From Medial Malleolus 74.3 cm 50 cm From Medial Malleolus 82.7 cm 60 cm From Medial Malleolus 87 cm Knee Joint 75.3 cm - over bandage foot and ankle Comments Lymphedema Comments left anterior ankle covered by wound dressing. PT-OP-Q Treatments Start: 01/10/23 16:14 Freq: Status: Active Protocol: Document 01/18/23 10:23 [facility] (Rec: 01/18/23 10:46 [facility] [id number]) Therapeutic Exercises Sitting Exercises deep breathing Reps/Minutes 5x3 LAQ Reps/Minutes 10x ea ankle pumps Reps/Minutes 10x2 sit to stand Reps/Minutes 4x throughout session Comments elevated hi-lo table Lymphedema Treatment Lymphedema Wrapping Body Location stella LE's MTP to upper thigh Materials Coban system with padding, extra black foam anterior ankle crease, covered by Coban bilateral LEs MTP's to just below knees. Additional 2 wide Coban distal right foot. TRicofix size J, Artiflex, and 2 rolls 12cm Comprilan from below knees to upper thighs. Sequential Lymphedema Exercises Comments as above Compression Garment Assessment Compression Garment Assessment Details patient to order first of month Patient Education Lymphedema Prevention educated Lymphedema Precautions educated Compression Garments reminded of compression capris , find other compression wrap Self Manual Lymphatic Drainage Patient reports doing at home Sequential Lymphedema Exercises as above, using video and handout Other will use pump tonight while in hotel Other Other No Unna boot received yet, continue with Coban system PT and wound care PT-OP-T Assessment and Plan Start: 01/10/23 16:14 Freq: Status: Active Protocol: Document 01/18/23 10:23 [facility] (Rec: 01/18/23 10:46 [facility] [id number]) Physical Therapy Assessment Impairments Impairments Activity Tolerance,Edema,Soft Tissue Mobility Goals Three Impairment impaired mobility and activity tolerance related to size of her legs Impairment uses FWW and doesn't go out of the house other than for medical appointments Short Term Goal (STG) Patient will be able to ambulate 500 ft with SPC with min assist STG Duration 03/13/23 Penitentiary Goal (LTG) Patient will be able to ambulate at least 1000 feet with least restrictive device to allow for return to community mobility LTG Duration 04/13/23 Two Impairment LYmphedema life impact scale 56% Short Term Goal (STG) Decrease Lymphedema life impact scale to no greater than 40% STG Duration 03/13/23 Insurance Underwriting Assistant Goal (LTG) Decrease lymphedema life impact scale to no greater than 25% as measure of improved activity tolerance and quality of life LTG Duration 04/13/23 One Impairment Lymphedema stella LE's Short Term Goal (STG) Patient to be instructed in all aspects of lymphedema care to include skin care, MLD, compression, and lymphedema exercises STG Duration 03/13/23 Penitentiary Goal (LTG) Patient to be independent in all aspects of lymphedema care , LE circumferential measurements to be stable (no increase or decrease greater than 1 cm over the course of 1 week), and patient to obtain appropriate compression garments for stella LE lymphedema managements and possibly sequential pneumatic pump. LTG Duration 04/13/23 Assessment Summary Assessment Patient developed wound anterior left ankle crease; had discomfort but didn't remove. Instructed to remove if feels similar again. Patient having wound care again tomorrow. Discussed fact PT will be gone 1 month, patient free to seek lymphedema care elsewhere as this clinic currently doesn't have more staff trained. Patient reports she will wait for this PT to return, continue with wound care, oncology care, and see this PT when I return after attending 1 further visist this . Importance of all aspects of lymphedema care stressed with patient. Physical Therapy Plan Frequency and Duration Frequency of Treatment 24 Duration of treatment (weeks) 12 Plan of Care Start Date 01/11/23 Plan of Care End Date 04/13/23 Therapeutic Interventions Therapeutic Interventions Home Exercise Program, Lymphedema Management,Manual Therapy,Patient/Caregiver Education,Self-Care/Home Management,Therapeutic Activities,Therapeutic Exercises Next Visit Focus/Plan Next Note Type Treatment Note Next Visit Plan See for 1 further PT treatment for lymphedema management, then PT to be on hold while this PT on vacation.
--- NOTE | 2023-01-20 12:00 | PT.OTN ---
Current Diagnoses Lymphedema, not elsewhere classified (01/20/23) Non-pressure chronic ulcer of other part of left lower leg with fat layer exposed (01/20/23) Soft tissue disorder, unspecified (01/20/23) Difficulty in walking, not elsewhere classified (01/20/23) Physical Therapy Treatment Note PT-OP-A Visit Information Start: 01/10/23 16:14 Freq: Status: Active Protocol: Document 01/20/23 10:18 [facility]AK (Rec: 01/20/23 11:10 [facility] [id number]) Out-Patient Physical Therapy Visit Information Visit Information Visit Type Treatment Note Visit Start Time 10:30 Visit Stop Time 11:55 Total Visit Minutes 85 Visit Number 5 Evaluation Information Evaluation Date 01/11/23 Precautions Precautions endometrial cancer, nonhealing wound left LE PT-OP-B Current Condition Start: 01/10/23 16:14 Freq: Status: Active Protocol: Document 01/20/23 10:18 SAK (Rec: 01/20/23 11:10 [facility] [id number]) Current Condition History of Current Condition Onset Date 22 months Current Complaints stella LE lymphedema History of Current Condition was travelling and knew something was wrong with her left leg, went to ER diagnosed with cellulitis stella LE's, was in hospital 28 days. 3 days before discharge developed lymphedema. Went to [facility] wound care, did not have good experience, no recommendation for PT. Now going to wound care at [facility] and PT was recommended. Using Vaseline due to dryness in legs. Has had multiple infections since that time. Then last year having vaginal bleeding and diagnosed with endometrial cancer. Has had 3 treatments of chemo. Can't have Obgyn surgery until infection in leg healed, possiblty more chemo. Sees oncologist tomorrow Dr. Merrick Hurtado in [place] at [facility]. Prior Treatments and Tests PMH: cellulitis, lymphedema stella LE's, peripheral neuropathy, morbid obesity, hysteroscopy, chronic non- healing ulcer left LE Future Testing and Treatments Planned Preparing for Obgyn surgery for endometrial cancer. PT-OP-C Subjective Start: 01/10/23 16:14 Freq: Status: Active Protocol: Document 01/20/23 10:18 SAK (Rec: 01/20/23 11:10 [facility] [id number]) OP-PT Subjective Patient Comments Patient Comments Saw oncologist yesterday, going to gave 3 more rounds of chemo, 9 wks. Then likely to have surgery hopefully pending CT results. Just saw wound care, Unable to use pump last night, hotel plugs weren 't in a place to allow her to do it. Agrees to request extension cord if that is the case next time. PT-OP-G Mobility & Gait Start: 01/10/23 16:14 Freq: Status: Active Protocol: Document 01/11/23 07:56 [facility] (Rec: 01/11/23 16:21 [facility] [id number]) OP Mobility Evaluation Bed Mobility Supine to and from Sit mod assist for LE's Transfers Sit to Stand use of FWW with SBA OP Gait Assessment Gait Gait Assistance Required: Independent Distance (Feet) 60 Assistive Devices Assistive Device Front Wheeled Walker Orthotic/Prosthetic Devices or Brace: No Gait Deviations General Gait Pattern Decreased Stride Length, Decreased Feet Clearance, Flexed Trunk,Wide Based Gait Comments Gait Comments limited by weight of legs due to lymphedema PT-OP-J Posture/Palpation/Skin Start: 01/10/23 16:14 Freq: Status: Active Protocol: Document 01/11/23 07:56 [facility] (Rec: 01/11/23 16:21 [facility] [id number]) Skin Assessment Other Assessments Skin Assessment Comments hyperkeratosis and elephatiasis stella LE's PT-OP-K Range of Motion Start: 01/10/23 16:14 Freq: Status: Active Protocol: Document 01/11/23 07:56 [facility] (Rec: 01/11/23 16:21 [facility] [id number]) Hip Goniometric Range of Motion Hip ROM Limitations Hip ROM Limitations Swelling Comments moderate limitations Knee Goniometric Range of Motion Knee ROM Limitations Knee ROM Limitations Swelling Comments moderate limitations Ankle and Foot Goniometric Range of Motion Ankle and Foot ROM Limitations ROM Limitations Swelling Comments moderate limitations PT-OP-M Strength Start: 01/10/23 16:14 Freq: Status: Active Protocol: Document 01/11/23 07:56 [facility] (Rec: 01/11/23 16:21 [facility] [id number]) Hip Strength Hip Manual Muscle Testing stella Comments less than anti-gravity stregnth, requires assistance for legs on and off treatment table. No MMT Knee Strength Knee Manual Muscle Testing stella Comments has anti-gravity strength ext. No MMT Ankle/Foot Strength Ankle and Foot Manual Muscle Testing stella Comments has anti gravity strength. No MMT PT-OP-N Lymphedema Start: 01/10/23 16:14 Freq: Status: Active Protocol: Document 01/18/23 10:23 [facility] (Rec: 01/18/23 10:58 [facility] [id number]) Lymphedema Measurements Lower Extremity Circumference Measurements Right Affected MT Heads 27.5 cm Mid-foot 28 cm Medial Malleolus 43 cm 10 cm From Medial Malleolus 57.6 cm 20 cm From Medial Malleolus 77.6 cm 30 cm From Medial Malleolus 82.6 cm 40 cm From Medial Malleolus 77.4 cm 50 cm From Medial Malleolus 89.4 cm 60 cm From Medial Malleolus 85 cm 70 cm From Medial Malleolus 89.9 cm Knee Joint 77.6 cm Left Affected MT Heads 27.5 cm Mid-foot 30.5 cm Medial Malleolus 41.25 cm 10 cm From Medial Malleolus 55.6 cm 20 cm From Medial Malleolus 69.8 cm 30 cm From Medial Malleolus 72.5 cm 40 cm From Medial Malleolus 74.3 cm 50 cm From Medial Malleolus 82.7 cm 60 cm From Medial Malleolus 87 cm Knee Joint 75.3 cm - over bandage foot and ankle Comments Lymphedema Comments left anterior ankle covered by wound dressing. PT-OP-Q Treatments Start: 01/10/23 16:14 Freq: Status: Active Protocol: Document 01/20/23 10:18 [facility] (Rec: 01/20/23 11:10 [facility] [id number]) Therapeutic Exercises Sitting Exercises sit to stand Reps/Minutes 3x throughout session Comments elevated hi-lo table Lymphedema Treatment Manual Lymphatic Drainage Location for stella LE's, Duration 30 Comments focus on AIA pathways Lymphedema Wrapping Body Location stella LE's MTP to upper thigh Materials Coban system with padding, extra black foam anterior ankle crease, covered by Coban bilateral LEs MTP's to just below knees. Additional 2 wide Coban distal right foot. TRicofix size J, Artiflex, and 2 rolls 12cm Comprilan from below knees to upper thighs. Sequential Lymphedema Exercises Comments TrA, glut sets, LAQ, ankle pumps and circles, toe flex/ ext, deep bfreathing Compression Garment Assessment Compression Garment Assessment Details patient to order first of month Patient Education Self Manual Lymphatic Drainage Reviewed while PT performed MLD, emphasis on inc pressure and time over fib Sequential Lymphedema Exercises as above stella LEs, deep breathing PT-OP-T Assessment and Plan Start: 01/10/23 16:14 Freq: Status: Active Protocol: Document 01/20/23 10:18 [facility] (Rec: 01/20/23 11:10 [facility] [id number]) Physical Therapy Assessment Impairments Impairments Activity Tolerance,Edema,Soft Tissue Mobility Goals Three Impairment impaired mobility and activity tolerance related to size of her legs Impairment uses FWW and doesn't go out of the house other than for medical appointments Short Term Goal (STG) Patient will be able to ambulate 500 ft with SPC with min assist STG Duration 03/13/23 [facility] Goal (LTG) Patient will be able to ambulate at least 1000 feet with least restrictive device to allow for return to community mobility LTG Duration 04/13/23 Two Impairment LYmphedema life impact scale 56% Short Term Goal (STG) Decrease Lymphedema life impact scale to no greater than 40% STG Duration 03/13/23 [facility] Goal (LTG) Decrease lymphedema life impact scale to no greater than 25% as measure of improved activity tolerance and quality of life LTG Duration 04/13/23 One Impairment Lymphedema stella LE's Short Term Goal (STG) Patient to be instructed in all aspects of lymphedema care to include skin care, MLD, compression, and lymphedema exercises STG Duration 03/13/23 [facility] Goal (LTG) Patient to be independent in all aspects of lymphedema care , LE circumferential measurements to be stable (no increase or decrease greater than 1 cm over the course of 1 week), and patient to obtain appropriate compression garments for stella LE lymphedema managements and possibly sequential pneumatic pump. LTG Duration 04/13/23 Assessment Summary Assessment Wound care reports ankle wound improving, saw them just before PT. Patient better able to perform LAQ today, demonstrated good understanding of MLD, use of bath brush for areas can't reach with hands, importance of ther ex. Patient reported working on housing with social media content manager from [facility] in [place]. PT discussed patient care with wound care, use of Tubigrip proximally legs and feet as needed in addition to Coban system since they don't do compression bandaging and patient not able. PT to return in 1 month, patient scheduled for appointments when I return. Physical Therapy Plan Frequency and Duration Frequency of Treatment 24 Duration of treatment (weeks) 12 Plan of Care Start Date 01/11/23 Plan of Care End Date 04/13/23 Therapeutic Interventions Therapeutic Interventions Home Exercise Program, Lymphedema Management,Manual Therapy,Patient/Caregiver Education,Self-Care/Home Management,Therapeutic Activities,Therapeutic Exercises Next Visit Focus/Plan Next Note Type Treatment Note Next Visit Plan Patient to continue with self- maagement for lymphedem including use of pump when able, attend wound care appointments, use Tubigrip in areas not bandaged, continue ther ex. Will resume PT in 1 month when this PT returns from vacation
--- NOTE | 2023-03-08 13:58 | PT.OTN ---
Current Diagnoses Lymphedema, not elsewhere classified (03/08/23) Non-pressure chronic ulcer of other part of left lower leg with fat layer exposed (03/08/23) Soft tissue disorder, unspecified (03/08/23) Difficulty in walking, not elsewhere classified (03/08/23) Physical Therapy Treatment Note PT-OP-A Visit Information Start: 01/10/23 16:14 Freq: Status: Active Protocol: Document 03/08/23 12:30 [facility]AK (Rec: 03/08/23 12:40 [facility] [id number]) Out-Patient Physical Therapy Visit Information Visit Information Visit Type Treatment Note Visit Start Time 12:30 Total Visit Minutes 85 Visit Number 6 Evaluation Information Evaluation Date 01/11/23 Precautions Precautions endometrial cancer, nonhealing wound left LE PT-OP-B Current Condition Start: 01/10/23 16:14 Freq: Status: Active Protocol: Document 03/08/23 12:30 [facility]AK (Rec: 03/08/23 12:40 [facility] [id number]) Current Condition History of Current Condition Onset Date 22 months Current Complaints stella LE lymphedema History of Current Condition was travelling and knew something was wrong with her left leg, went to ER diagnosed with cellulitis stella LE's, was in hospital 28 days. 3 days before discharge developed lymphedema. Went to [facility] wound care, did not have good experience, no recommendation for PT. Now going to wound care at [facility] and PT was recommended. Using Vaseline due to dryness in legs. Has had multiple infections since that time. Then last year having vaginal bleeding and diagnosed with endometrial cancer. Has had 3 treatments of chemo. Can't have Obgyn surgery until infection in leg healed, possiblty more chemo. Sees oncologist tomorrow Dr. Merrick Hurtado in [place] at [facility]. Prior Treatments and Tests PMH: cellulitis, lymphedema stella LE's, peripheral neuropathy, morbid obesity, hysteroscopy, chronic non- healing ulcer left LE Future Testing and Treatments Planned Preparing for Obgyn surgery for endometrial cancer. PT-OP-C Subjective Start: 01/10/23 16:14 Freq: Status: Active Protocol: Document 03/08/23 12:30 [facility] (Rec: 03/08/23 12:40 [facility] [id number]) OP-PT Subjective Patient Comments Patient Comments Reports she has started chemo again, fatiguing. 1 wound has healed, 2 are in the process. Patient reports doing exercises, trying to elevate more, has not been able to use pump; too hard to bring into hotel to use. Lost 20 lbs. PT-OP-G Mobility & Gait Start: 01/10/23 16:14 Freq: Status: Active Protocol: Document 01/11/23 07:56 [facility] (Rec: 01/11/23 16:21 [facility] [id number]) OP Mobility Evaluation Bed Mobility Supine to and from Sit mod assist for LE's Transfers Sit to Stand use of FWW with SBA OP Gait Assessment Gait Gait Assistance Required: Independent Distance (Feet) 60 Assistive Devices Assistive Device Front Wheeled Walker Orthotic/Prosthetic Devices or Brace: No Gait Deviations General Gait Pattern Decreased Stride Length, Decreased Feet Clearance, Flexed Trunk,Wide Based Gait Comments Gait Comments limited by weight of legs due to lymphedema PT-OP-J Posture/Palpation/Skin Start: 01/10/23 16:14 Freq: Status: Active Protocol: Document 01/11/23 07:56 [facility] (Rec: 01/11/23 16:21 [facility] [id number]) Skin Assessment Other Assessments Skin Assessment Comments hyperkeratosis and elephatiasis stella LE's PT-OP-K Range of Motion Start: 01/10/23 16:14 Freq: Status: Active Protocol: Document 01/11/23 07:56 [facility] (Rec: 01/11/23 16:21 [facility] [id number]) Hip Goniometric Range of Motion Hip ROM Limitations Hip ROM Limitations Swelling Comments moderate limitations Knee Goniometric Range of Motion Knee ROM Limitations Knee ROM Limitations Swelling Comments moderate limitations Ankle and Foot Goniometric Range of Motion Ankle and Foot ROM Limitations ROM Limitations Swelling Comments moderate limitations PT-OP-M Strength Start: 01/10/23 16:14 Freq: Status: Active Protocol: Document 01/11/23 07:56 [facility] (Rec: 01/11/23 16:21 [facility] [id number]) Hip Strength Hip Manual Muscle Testing stella Comments less than anti-gravity stregnth, requires assistance for legs on and off treatment table. No MMT Knee Strength Knee Manual Muscle Testing stella Comments has anti-gravity strength ext. No MMT Ankle/Foot Strength Ankle and Foot Manual Muscle Testing stella Comments has anti gravity strength. No MMT PT-OP-N Lymphedema Start: 01/10/23 16:14 Freq: Status: Active Protocol: Document 03/08/23 12:30 [facility] (Rec: 03/08/23 13:18 [facility] [id number]) Lymphedema Measurements Lower Extremity Circumference Measurements Right Affected MT Heads 27.1 cm Mid-foot 26.8 cm Medial Malleolus 37.9 cm 10 cm From Medial Malleolus 51.8 cm 20 cm From Medial Malleolus 64.2 cm 30 cm From Medial Malleolus 75.6 cm 40 cm From Medial Malleolus 80 cm 50 cm From Medial Malleolus 81.4 cm 60 cm From Medial Malleolus 76.2 cm 70 cm From Medial Malleolus 86 cm Knee Joint 75.2 cm Left Affected MT Heads 25.2 cm Mid-foot 26.1 cm Medial Malleolus 36.5 cm 10 cm From Medial Malleolus 47 cm 20 cm From Medial Malleolus 57.9 cm 30 cm From Medial Malleolus 64.3 cm 40 cm From Medial Malleolus 63.7 cm 50 cm From Medial Malleolus 74.9 cm 60 cm From Medial Malleolus 76.6 cm Knee Joint 69 cm PT-OP-Q Treatments Start: 01/10/23 16:14 Freq: Status: Active Protocol: Document 03/08/23 12:30 [facility] (Rec: 03/08/23 13:56 [facility] [id number]) Lymphedema Treatment Lymphedema Wrapping Body Location stella LE's MTP to upper thigh Materials Coban system with padding, extra black foam anterior ankle crease, covered by Coban bilateral LEs MTP's to just below knees. Additional 2 wide Coban distal right foot. TRicofix size J, Artiflex, and 2 rolls 12cm Comprilan from below knees to upper thighs. Sequential Lymphedema Exercises Comments TrA, glut sets, LAQ, ankle pumps and circles, toe flex/ ext, deep bfreathing Compression Garment Assessment Compression Garment Assessment Details Has not yet ordered due to finances and decrease in LE size with treatment. Patient Education Self Manual Lymphatic Drainage Reviewed while PT performed MLD, emphasis on inc pressure and time over fib Sequential Lymphedema Exercises as above stella LEs, deep breathing PT-OP-T Assessment and Plan Start: 01/10/23 16:14 Freq: Status: Active Protocol: Document 03/08/23 12:30 [facility] (Rec: 07/11/23 12:40 [facility] [id number]) Physical Therapy Assessment Impairments Impairments Activity Tolerance,Edema,Soft Tissue Mobility Goals Three Impairment impaired mobility and activity tolerance related to size of her legs Impairment uses FWW and doesn't go out of the house other than for medical appointments Short Term Goal (STG) Patient will be able to ambulate 500 ft with SPC with min assist STG Duration 03/13/23 Corporate Risk Analyst Goal (LTG) Patient will be able to ambulate at least 1000 feet with least restrictive device to allow for return to community mobility LTG Duration 04/13/23 Two Impairment LYmphedema life impact scale 56% Short Term Goal (STG) Decrease Lymphedema life impact scale to no greater than 40% STG Duration 03/13/23 Corporate Risk Analyst Goal (LTG) Decrease lymphedema life impact scale to no greater than 25% as measure of improved activity tolerance and quality of life LTG Duration 04/13/23 One Impairment Lymphedema stella LE's Short Term Goal (STG) Patient to be instructed in all aspects of lymphedema care to include skin care, MLD, compression, and lymphedema exercises STG Duration 03/13/23 Shelter Goal (LTG) Patient to be independent in all aspects of lymphedema care , LE circumferential measurements to be stable (no increase or decrease greater than 1 cm over the course of 1 week), and patient to obtain appropriate compression garments for stella LE lymphedema managements and possibly sequential pneumatic pump. LTG Duration 04/13/23 Assessment Summary Assessment good decrease in circumfeential measurements, wounds healing. Despite homeless situation patient has been making good progress toward goals, though unable to purchase compression capris yet. Physical Therapy Plan Frequency and Duration Frequency of Treatment 2x/Week Duration of treatment (weeks) 12 Plan of Care Start Date 01/11/23 Plan of Care End Date 04/13/23 Therapeutic Interventions Therapeutic Interventions Home Exercise Program, Lymphedema Management,Manual Therapy,Patient/Caregiver Education,Self-Care/Home Management,Therapeutic Activities,Therapeutic Exercises Next Visit Focus/Plan Next Note Type Treatment Note Next Visit Plan Continue lymphedema management .
--- NOTE | 2023-03-10 12:01 | PT.OTN ---
Current Diagnoses Lymphedema, not elsewhere classified (03/10/23) Non-pressure chronic ulcer of other part of left lower leg with fat layer exposed (03/10/23) Soft tissue disorder, unspecified (03/10/23) Difficulty in walking, not elsewhere classified (03/10/23) Physical Therapy Treatment Note PT-OP-A Visit Information Start: 01/10/23 16:14 Freq: Status: Active Protocol: Document 03/10/23 11:51 SAK (Rec: 03/10/23 12:01 [facility] [id number]) Out-Patient Physical Therapy Visit Information Visit Information Visit Type Treatment Note Visit Start Time 10:30 Visit Stop Time 11:55 Total Visit Minutes 85 Visit Number 6 Evaluation Information Evaluation Date 01/11/23 Precautions Precautions endometrial cancer, nonhealing wound left LE PT-OP-B Current Condition Start: 01/10/23 16:14 Freq: Status: Active Protocol: Document 03/10/23 11:51 SAK (Rec: 03/10/23 12:01 [facility] [id number]) Current Condition History of Current Condition Onset Date 22 months Current Complaints stella LE lymphedema History of Current Condition was travelling and knew something was wrong with her left leg, went to ER diagnosed with cellulitis stella LE's, was in hospital 28 days. 3 days before discharge developed lymphedema. Went to [facility] wound care, did not have good experience, no recommendation for PT. Now going to wound care at [facility] and PT was recommended. Using Vaseline due to dryness in legs. Has had multiple infections since that time. Then last year having vaginal bleeding and diagnosed with endometrial cancer. Has had 3 treatments of chemo. Can't have Obgyn surgery until infection in leg healed, possiblty more chemo. Sees oncologist tomorrow Dr. Merrick Hurtado in [place] at [facility]. Prior Treatments and Tests PMH: cellulitis, lymphedema stella LE's, peripheral neuropathy, morbid obesity, hysteroscopy, chronic non- healing ulcer left LE Future Testing and Treatments Planned Preparing for Obgyn surgery for endometrial cancer. PT-OP-C Subjective Start: 01/10/23 16:14 Freq: Status: Active Protocol: Document 03/10/23 11:51 SAK (Rec: 03/10/23 12:01 [facility] [id number]) OP-PT Subjective Patient Comments Patient Comments Reports in the middle of the night Tuesday had to remove her bandaging most of the way; was too tight and was concerned about a tourniquet effect causing further wounds PT-OP-G Mobility & Gait Start: 01/10/23 16:14 Freq: Status: Active Protocol: Document 01/11/23 07:56 [facility] (Rec: 01/11/23 16:21 [facility] [id number]) OP Mobility Evaluation Bed Mobility Supine to and from Sit mod assist for LE's Transfers Sit to Stand use of FWW with SBA OP Gait Assessment Gait Gait Assistance Required: Independent Distance (Feet) 60 Assistive Devices Assistive Device Front Wheeled Walker Orthotic/Prosthetic Devices or Brace: No Gait Deviations General Gait Pattern Decreased Stride Length, Decreased Feet Clearance, Flexed Trunk,Wide Based Gait Comments Gait Comments limited by weight of legs due to lymphedema PT-OP-J Posture/Palpation/Skin Start: 01/10/23 16:14 Freq: Status: Active Protocol: Document 01/11/23 07:56 [facility] (Rec: 01/11/23 16:21 [facility] [id number]) Skin Assessment Other Assessments Skin Assessment Comments hyperkeratosis and elephatiasis stella LE's PT-OP-K Range of Motion Start: 01/10/23 16:14 Freq: Status: Active Protocol: Document 01/11/23 07:56 [facility] (Rec: 01/11/23 16:21 [facility] [id number]) Hip Goniometric Range of Motion Hip ROM Limitations Hip ROM Limitations Swelling Comments moderate limitations Knee Goniometric Range of Motion Knee ROM Limitations Knee ROM Limitations Swelling Comments moderate limitations Ankle and Foot Goniometric Range of Motion Ankle and Foot ROM Limitations ROM Limitations Swelling Comments moderate limitations PT-OP-M Strength Start: 01/10/23 16:14 Freq: Status: Active Protocol: Document 01/11/23 07:56 [facility] (Rec: 01/11/23 16:21 [facility] [id number]) Hip Strength Hip Manual Muscle Testing stella Comments less than anti-gravity stregnth, requires assistance for legs on and off treatment table. No MMT Knee Strength Knee Manual Muscle Testing stella Comments has anti-gravity strength ext. No MMT Ankle/Foot Strength Ankle and Foot Manual Muscle Testing stella Comments has anti gravity strength. No MMT PT-OP-N Lymphedema Start: 01/10/23 16:14 Freq: Status: Active Protocol: Document 03/10/23 11:51 [facility] (Rec: 03/10/23 12:01 [facility] [id number]) Lymphedema Measurements Lower Extremity Circumference Measurements Right Affected - no circumferenetial measurements today, appears larger, spent more time MLD Left Affected - no circumferenetial measurements today, appears larger, spent more time MLD PT-OP-Q Treatments Start: 01/10/23 16:14 Freq: Status: Active Protocol: Document 03/10/23 11:51 [facility] (Rec: 03/10/23 12:01 [facility] [id number]) Lymphedema Treatment Lymphedema Wrapping Body Location stella LE's MTP to upper thigh Materials Coban system with padding, extra black foam anterior ankle crease, covered by Coban Lite bilateral LEs MTP's to just below knees. Additional 2 wide Coban distal right foot. TRicofix size J, Artiflex, and 2 rolls 12cm Comprilan from below knees to upper thighs. Sequential Lymphedema Exercises Comments TrA, glut sets, LAQ, ankle pumps and circles, toe flex/ ext, deep bfreathing PT-OP-T Assessment and Plan Start: 01/10/23 16:14 Freq: Status: Active Protocol: Document 03/10/23 11:51 [facility] (Rec: 03/10/23 12:01 [facility] [id number]) Physical Therapy Plan Next Visit Focus/Plan Next Note Type Treatment Note Next Visit Plan Continue lymphedema management . Discuss compression alternatives for stella LE, ease of self care.
--- NOTE | 2023-03-15 11:51 | PT.OTN ---
Current Diagnoses Lymphedema, not elsewhere classified (03/15/23) Non-pressure chronic ulcer of other part of left lower leg with fat layer exposed (03/15/23) Soft tissue disorder, unspecified (03/15/23) Difficulty in walking, not elsewhere classified (03/15/23) Physical Therapy Treatment Note PT-OP-A Visit Information Start: 01/10/23 16:14 Freq: Status: Active Protocol: Document 03/15/23 10:26 SAK (Rec: 03/15/23 10:57 [facility] [id number]) Out-Patient Physical Therapy Visit Information Visit Information Visit Type Treatment Note Visit Start Time 10:30 Visit Stop Time 11:55 Total Visit Minutes 75 Visit Number 7 Precautions Precautions endometrial cancer, nonhealing wound left LE PT-OP-B Current Condition Start: 01/10/23 16:14 Freq: Status: Active Protocol: Document 03/15/23 10:26 SAK (Rec: 03/15/23 10:57 [facility] [id number]) Current Condition History of Current Condition Onset Date 22 months Current Complaints stella LE lymphedema History of Current Condition was travelling and knew something was wrong with her left leg, went to ER diagnosed with cellulitis stella LE's, was in hospital 28 days. 3 days before discharge developed lymphedema. Went to [facility] wound care, did not have good experience, no recommendation for PT. Now going to wound care at [facility] and PT was recommended. Using Vaseline due to dryness in legs. Has had multiple infections since that time. Then last year having vaginal bleeding and diagnosed with endometrial cancer. Has had 3 treatments of chemo. Can't have Obgyn surgery until infection in leg healed, possiblty more chemo. Sees oncologist tomorrow Dr. Merrick Hurtado in [place] at [facility]. Prior Treatments and Tests PMH: cellulitis, lymphedema stella LE's, peripheral neuropathy, morbid obesity, hysteroscopy, chronic non- healing ulcer left LE Future Testing and Treatments Planned Preparing for Obgyn surgery for endometrial cancer. PT-OP-C Subjective Start: 01/10/23 16:14 Freq: Status: Active Protocol: Document 03/15/23 10:26 [facility]AK (Rec: 03/15/23 10:57 [facility] [id number]) OP-PT Subjective Patient Comments Patient Comments Just at wound care, 2/3 wounds healed. Was able to keep all of bandaging off until upper leg; had to remove part due to too hot; chemo causing hot flashes. Has compression alternatives, hasn't been able to fit into and wasn't able to self don. Now able to bend right knee. Can't order compression capris until . PT-OP-G Mobility & Gait Start: 01/10/23 16:14 Freq: Status: Active Protocol: Document 01/11/23 07:56 [facility] (Rec: 01/11/23 16:21 [facility] [id number]) OP Mobility Evaluation Bed Mobility Supine to and from Sit mod assist for LE's Transfers Sit to Stand use of FWW with SBA OP Gait Assessment Gait Gait Assistance Required: Independent Distance (Feet) 60 Assistive Devices Assistive Device Front Wheeled Walker Orthotic/Prosthetic Devices or Brace: No Gait Deviations General Gait Pattern Decreased Stride Length, Decreased Feet Clearance, Flexed Trunk,Wide Based Gait Comments Gait Comments limited by weight of legs due to lymphedema PT-OP-J Posture/Palpation/Skin Start: 01/10/23 16:14 Freq: Status: Active Protocol: Document 01/11/23 07:56 [facility] (Rec: 01/11/23 16:21 [facility] [id number]) Skin Assessment Other Assessments Skin Assessment Comments hyperkeratosis and elephatiasis stella LE's PT-OP-K Range of Motion Start: 01/10/23 16:14 Freq: Status: Active Protocol: Document 01/11/23 07:56 [facility] (Rec: 01/11/23 16:21 [facility] [id number]) Hip Goniometric Range of Motion Hip ROM Limitations Hip ROM Limitations Swelling Comments moderate limitations Knee Goniometric Range of Motion Knee ROM Limitations Knee ROM Limitations Swelling Comments moderate limitations Ankle and Foot Goniometric Range of Motion Ankle and Foot ROM Limitations ROM Limitations Swelling Comments moderate limitations PT-OP-M Strength Start: 01/10/23 16:14 Freq: Status: Active Protocol: Document 01/11/23 07:56 [facility] (Rec: 01/11/23 16:21 [facility] [id number]) Hip Strength Hip Manual Muscle Testing stella Comments less than anti-gravity stregnth, requires assistance for legs on and off treatment table. No MMT Knee Strength Knee Manual Muscle Testing stella Comments has anti-gravity strength ext. No MMT Ankle/Foot Strength Ankle and Foot Manual Muscle Testing stella Comments has anti gravity strength. No MMT PT-OP-N Lymphedema Start: 01/10/23 16:14 Freq: Status: Active Protocol: Document 03/15/23 10:26 [facility] (Rec: 03/15/23 10:57 [facility] [id number]) Lymphedema Measurements Lower Extremity Circumference Measurements Right Affected MT Heads 26.8 cm Mid-foot 27.3 cm Medial Malleolus 36.8 cm 10 cm From Medial Malleolus 52 cm 20 cm From Medial Malleolus 67 cm 30 cm From Medial Malleolus 74.3 cm 40 cm From Medial Malleolus 80.2 cm 50 cm From Medial Malleolus 81.4 cm 60 cm From Medial Malleolus 78 cm Knee Joint 75.5 cm Left Affected MT Heads 25.2 cm Mid-foot 25.6 cm Medial Malleolus 34 cm 10 cm From Medial Malleolus 46.3 cm 20 cm From Medial Malleolus 55.8 cm 30 cm From Medial Malleolus 61.8 cm 40 cm From Medial Malleolus 60.8 cm 50 cm From Medial Malleolus 70.7 cm 60 cm From Medial Malleolus 76.1 cm Knee Joint 62.8 cm PT-OP-Q Treatments Start: 01/10/23 16:14 Freq: Status: Active Protocol: Document 03/15/23 10:26 [facility] (Rec: 03/15/23 11:51 [facility] [id number]) Lymphedema Treatment Lymphedema Wrapping Body Location stella LE's MTP to upper thigh Materials Coban system with padding, extra black foam anterior ankle crease, covered by Coban Lite bilateral LEs MTP's to just below knees. Additional 2 wide Coban distal right foot. TRicofix size J, Artiflex, and 2 rolls 12cm Comprilan from below knees to upper thighs. Sequential Lymphedema Exercises Comments HEP Compression Garment Assessment Compression Garment Assessment Details Has not yet ordered due to finances and decrease in LE size with treatment. Patient Education Self Manual Lymphatic Drainage Reviewed while PT performed MLD, emphasis on inc pressure and time over fib Sequential Lymphedema Exercises as above stella LEs, deep breathing Other Other sequential pneumatic pump left LE during MLD right 40 min at 45 mm HG PT-OP-T Assessment and Plan Start: 01/10/23 16:14 Freq: Status: Active Protocol: Document 03/15/23 10:26 [facility] (Rec: 03/15/23 10:57 [facility] [id number]) Physical Therapy Assessment Goals Three Impairment impaired mobility and activity tolerance related to size of her legs Impairment uses FWW and doesn't go out of the house other than for medical appointments Short Term Goal (STG) Patient will be able to ambulate 500 ft with SPC with min assist STG Duration 03/13/23 Battery Assembler Goal (LTG) Patient will be able to ambulate at least 1000 feet with least restrictive device to allow for return to community mobility LTG Duration 04/13/23 Two Impairment LYmphedema life impact scale 56% Short Term Goal (STG) Decrease Lymphedema life impact scale to no greater than 40% STG Duration 03/13/23 Detention Goal (LTG) Decrease lymphedema life impact scale to no greater than 25% as measure of improved activity tolerance and quality of life LTG Duration 04/13/23 One Impairment Lymphedema stella LE's Short Term Goal (STG) Patient to be instructed in all aspects of lymphedema care to include skin care, MLD, compression, and lymphedema exercises STG Duration 03/13/23 Detention Goal (LTG) Patient to be independent in all aspects of lymphedema care , LE circumferential measurements to be stable (no increase or decrease greater than 1 cm over the course of 1 week), and patient to obtain appropriate compression garments for stella LE lymphedema managements and possibly sequential pneumatic pump. LTG Duration 04/13/23 Assessment Summary Assessment good decrease in circumfeential measurements, wounds healing. Despite homeless situation patient has been making good progress toward goals, though unable to purchase compression capris yet. Pad advised to try to adjust short stretch bandages looser and rebandage if able. Patient to order compression tights, need to discuss compression alternatives due to patient difficulty with self-management. Physical Therapy Plan Frequency and Duration Frequency of Treatment 2x/Week Duration of treatment (weeks) 12 Plan of Care Start Date 01/11/23 Plan of Care End Date 04/13/23 Therapeutic Interventions Therapeutic Interventions Home Exercise Program, Lymphedema Management,Manual Therapy,Patient/Caregiver Education,Self-Care/Home Management,Therapeutic Activities,Therapeutic Exercises
--- NOTE | 2023-03-17 16:59 | PT.OTN ---
Current Diagnoses Lymphedema, not elsewhere classified (03/17/23) Non-pressure chronic ulcer of other part of left lower leg with fat layer exposed (03/17/23) Soft tissue disorder, unspecified (03/17/23) Difficulty in walking, not elsewhere classified (03/17/23) Physical Therapy Treatment Note PT-OP-A Visit Information Start: 01/10/23 16:14 Freq: Status: Active Protocol: Document 03/17/23 10:37 [facility] (Rec: 03/17/23 10:38 [facility] [id number]) Out-Patient Physical Therapy Visit Information Visit Information Visit Type Treatment Note Visit Start Time 10:30 Visit Stop Time 11:55 Total Visit Minutes 75 Visit Number 8 Precautions Precautions endometrial cancer, nonhealing wound left LE PT-OP-B Current Condition Start: 01/10/23 16:14 Freq: Status: Active Protocol: Document 03/17/23 10:37 [facility] (Rec: 03/17/23 10:38 [facility] [id number]) Current Condition History of Current Condition Onset Date 22 months Current Complaints stella LE lymphedema History of Current Condition was travelling and knew something was wrong with her left leg, went to ER diagnosed with cellulitis stella LE's, was in hospital 28 days. 3 days before discharge developed lymphedema. Went to [facility] wound care, did not have good experience, no recommendation for PT. Now going to wound care at [facility] and PT was recommended. Using Vaseline due to dryness in legs. Has had multiple infections since that time. Then last year having vaginal bleeding and diagnosed with endometrial cancer. Has had 3 treatments of chemo. Can't have Obgyn surgery until infection in leg healed, possiblty more chemo. Sees oncologist tomorrow Dr. Merrick Hurtado in [place] at [facility]. Prior Treatments and Tests PMH: cellulitis, lymphedema stella LE's, peripheral neuropathy, morbid obesity, hysteroscopy, chronic non- healing ulcer left LE Future Testing and Treatments Planned Preparing for Obgyn surgery for endometrial cancer. PT-OP-C Subjective Start: 01/10/23 16:14 Freq: Status: Active Protocol: Document 03/17/23 10:37 [facility] (Rec: 03/17/23 10:38 [facility] [id number]) OP-PT Subjective Patient Comments Patient Comments Raw area in ankle crease left needs padding, otherwise wounds healing well. PT-OP-G Mobility & Gait Start: 01/10/23 16:14 Freq: Status: Active Protocol: Document 01/11/23 07:56 [facility] (Rec: 01/11/23 16:21 [facility] [id number]) OP Mobility Evaluation Bed Mobility Supine to and from Sit mod assist for LE's Transfers Sit to Stand use of FWW with SBA OP Gait Assessment Gait Gait Assistance Required: Independent Distance (Feet) 60 Assistive Devices Assistive Device Front Wheeled Walker Orthotic/Prosthetic Devices or Brace: No Gait Deviations General Gait Pattern Decreased Stride Length, Decreased Feet Clearance, Flexed Trunk,Wide Based Gait Comments Gait Comments limited by weight of legs due to lymphedema PT-OP-J Posture/Palpation/Skin Start: 01/10/23 16:14 Freq: Status: Active Protocol: Document 01/11/23 07:56 [facility] (Rec: 01/11/23 16:21 [facility] [id number]) Skin Assessment Other Assessments Skin Assessment Comments hyperkeratosis and elephatiasis stella LE's PT-OP-K Range of Motion Start: 01/10/23 16:14 Freq: Status: Active Protocol: Document 01/11/23 07:56 [facility] (Rec: 01/11/23 16:21 [facility] [id number]) Hip Goniometric Range of Motion Hip ROM Limitations Hip ROM Limitations Swelling Comments moderate limitations Knee Goniometric Range of Motion Knee ROM Limitations Knee ROM Limitations Swelling Comments moderate limitations Ankle and Foot Goniometric Range of Motion Ankle and Foot ROM Limitations ROM Limitations Swelling Comments moderate limitations PT-OP-M Strength Start: 01/10/23 16:14 Freq: Status: Active Protocol: Document 01/11/23 07:56 [facility] (Rec: 01/11/23 16:21 [facility] [id number]) Hip Strength Hip Manual Muscle Testing stella Comments less than anti-gravity stregnth, requires assistance for legs on and off treatment table. No MMT Knee Strength Knee Manual Muscle Testing stella Comments has anti-gravity strength ext. No MMT Ankle/Foot Strength Ankle and Foot Manual Muscle Testing stella Comments has anti gravity strength. No MMT PT-OP-N Lymphedema Start: 01/10/23 16:14 Freq: Status: Active Protocol: Document 03/17/23 10:37 [facility] (Rec: 03/17/23 10:57 [facility] [id number]) Lymphedema Measurements Lower Extremity Circumference Measurements Right Affected MT Heads 26.8 cm Mid-foot 26.4 cm Medial Malleolus 36.8 cm 10 cm From Medial Malleolus 66.2 cm 20 cm From Medial Malleolus 72.8 cm 30 cm From Medial Malleolus 77 cm 40 cm From Medial Malleolus 80.8 cm 50 cm From Medial Malleolus 82 cm 60 cm From Medial Malleolus 79 cm Knee Joint 76.8 cm Left Affected MT Heads 25.2 cm Mid-foot 25.6 cm Medial Malleolus 35 cm 10 cm From Medial Malleolus 44.6 cm 20 cm From Medial Malleolus 55.8 cm 30 cm From Medial Malleolus 59 cm 40 cm From Medial Malleolus 62 cm 50 cm From Medial Malleolus 71.7 cm 60 cm From Medial Malleolus 76.1 cm Knee Joint 64 cm - over dressing at ankle PT-OP-Q Treatments Start: 01/10/23 16:14 Freq: Status: Active Protocol: Document 03/17/23 10:37 [facility] (Rec: 03/17/23 16:58 [facility] [id number]) Lymphedema Treatment Lymphedema Wrapping Body Location stella LE's MTP to upper thigh Materials Coban system with padding, extra black foam anterior ankle crease, covered by Coban Lite bilateral LEs MTP's to just below knees. Additional 2 wide Coban distal right foot. TRicofix size J, Artiflex, and 2 rolls 12cm Comprilan from below knees to upper thighs. Sequential Lymphedema Exercises Comments TrA, glut sets, LAQ, ankle pumps and circles, toe flex/ ext, deep bfreathing [ End ] Compression Garment Assessment Compression Garment Assessment Details Has not yet ordered due to finances and decrease in LE size with treatment. Other Other sequential pneumatic pump right LE during MLD right 40 min at 45 mm HG PT-OP-T Assessment and Plan Start: 01/10/23 16:14 Freq: Status: Active Protocol: Document 03/17/23 10:37 [facility] (Rec: 03/17/23 10:38 [facility] [id number]) Physical Therapy Assessment Goals Three Impairment impaired mobility and activity tolerance related to size of her legs Impairment uses FWW and doesn't go out of the house other than for medical appointments Short Term Goal (STG) Patient will be able to ambulate 500 ft with SPC with min assist STG Duration 03/13/23 Senior Care Goal (LTG) Patient will be able to ambulate at least 1000 feet with least restrictive device to allow for return to community mobility LTG Duration 04/13/23 Two Impairment LYmphedema life impact scale 56% Short Term Goal (STG) Decrease Lymphedema life impact scale to no greater than 40% STG Duration 03/13/23 Canvas Marker Goal (LTG) Decrease lymphedema life impact scale to no greater than 25% as measure of improved activity tolerance and quality of life LTG Duration 04/13/23 One Impairment Lymphedema stella LE's Short Term Goal (STG) Patient to be instructed in all aspects of lymphedema care to include skin care, MLD, compression, and lymphedema exercises STG Duration 03/13/23 Canvas Marker Goal (LTG) Patient to be independent in all aspects of lymphedema care , LE circumferential measurements to be stable (no increase or decrease greater than 1 cm over the course of 1 week), and patient to obtain appropriate compression garments for stella LE lymphedema managements and possibly sequential pneumatic pump. LTG Duration 04/13/23 Progress Towards Goals Progress Towards Goals Progressing Toward Goals Assessment Summary Assessment NOting further decrease in some circumferential measurements, improving tissue pliability. Physical Therapy Plan Frequency and Duration Frequency of Treatment 2x/Week Duration of treatment (weeks) 12 Plan of Care Start Date 01/11/23 Plan of Care End Date 04/13/23 Therapeutic Interventions Therapeutic Interventions Home Exercise Program, Lymphedema Management,Manual Therapy,Patient/Caregiver Education,Self-Care/Home Management,Therapeutic Activities,Therapeutic Exercises Next Visit Focus/Plan Next Note Type Treatment Note Next Visit Plan Continue lymphedema management . Patient to look for compression wrap for right LE; has found for left.
--- NOTE | 2023-03-29 16:00 | PT.OPPN ---
Current Diagnoses Lymphedema, not elsewhere classified (03/31/23) Non-pressure chronic ulcer of other part of left lower leg with fat layer exposed (03/31/23) Soft tissue disorder, unspecified (03/31/23) Difficulty in walking, not elsewhere classified (03/31/23) Physical Therapy Progress Note PT-OP-A Visit Information Start: 01/10/23 16:14 Freq: Status: Active Protocol: Document 03/29/23 10:27 [facility] (Rec: 03/29/23 11:12 [facility] [id number]) Out-Patient Physical Therapy Visit Information Visit Information Visit Type Treatment Note Visit Start Time 10:30 Visit Stop Time 12:00 Total Visit Minutes 90 Visit Number 10 Precautions Precautions endometrial cancer, nonhealing wound left LE PT-OP-B Current Condition Start: 01/10/23 16:14 Freq: Status: Active Protocol: Document 03/29/23 10:27 [facility]AK (Rec: 03/29/23 11:12 [facility] [id number]) Current Condition History of Current Condition Onset Date 22 months Current Complaints stella LE lymphedema History of Current Condition was travelling and knew something was wrong with her left leg, went to ER diagnosed with cellulitis stella LE's, was in hospital 28 days. 3 days before discharge developed lymphedema. Went to [facility] wound care, did not have good experience, no recommendation for PT. Now going to wound care at [facility] and PT was recommended. Using Vaseline due to dryness in legs. Has had multiple infections since that time. Then last year having vaginal bleeding and diagnosed with endometrial cancer. Has had 3 treatments of chemo. Can't have Obgyn surgery until infection in leg healed, possiblty more chemo. Sees oncologist tomorrow Dr. Merrick Hurtado in [place] at [facility]. Prior Treatments and Tests PMH: cellulitis, lymphedema stella LE's, peripheral neuropathy, morbid obesity, hysteroscopy, chronic non- healing ulcer left LE Future Testing and Treatments Planned Preparing for Obgyn surgery for endometrial cancer. PT-OP-C Subjective Start: 01/10/23 16:14 Freq: Status: Active Protocol: Document 03/29/23 10:27 [facility]AK (Rec: 03/29/23 11:12 [facility] [id number]) OP-PT Subjective Patient Comments Patient Comments Was able to walk around car without using walker or holding onto car this am, improving steadiness, strength , and balance. 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 Patient reports allergic to Artiflex, doesn't want to use. Had chemo last . Has CT Apr 20, sees oncologist May 05. PT-OP-G Mobility & Gait Start: 01/10/23 16:14 Freq: Status: Active Protocol: Document 01/11/23 07:56 [facility] (Rec: 01/11/23 16:21 [facility] [id number]) OP Mobility Evaluation Bed Mobility Supine to and from Sit mod assist for LE's Transfers Sit to Stand use of FWW with SBA OP Gait Assessment Gait Gait Assistance Required: Independent Distance (Feet) 60 Assistive Devices Assistive Device Front Wheeled Walker Orthotic/Prosthetic Devices or Brace: No Gait Deviations General Gait Pattern Decreased Stride Length, Decreased Feet Clearance, Flexed Trunk,Wide Based Gait Comments Gait Comments limited by weight of legs due to lymphedema PT-OP-J Posture/Palpation/Skin Start: 01/10/23 16:14 Freq: Status: Active Protocol: Document 01/11/23 07:56 [facility] (Rec: 01/11/23 16:21 [facility] [id number]) Skin Assessment Other Assessments Skin Assessment Comments hyperkeratosis and elephatiasis stella LE's PT-OP-K Range of Motion Start: 01/10/23 16:14 Freq: Status: Active Protocol: Document 01/11/23 07:56 [facility] (Rec: 01/11/23 16:21 [facility] [id number]) Hip Goniometric Range of Motion Hip ROM Limitations Hip ROM Limitations Swelling Comments moderate limitations Knee Goniometric Range of Motion Knee ROM Limitations Knee ROM Limitations Swelling Comments moderate limitations Ankle and Foot Goniometric Range of Motion Ankle and Foot ROM Limitations ROM Limitations Swelling Comments moderate limitations PT-OP-M Strength Start: 01/10/23 16:14 Freq: Status: Active Protocol: Document 01/11/23 07:56 [facility] (Rec: 01/11/23 16:21 [facility] [id number]) Hip Strength Hip Manual Muscle Testing stella Comments less than anti-gravity stregnth, requires assistance for legs on and off treatment table. No MMT Knee Strength Knee Manual Muscle Testing stella Comments has anti-gravity strength ext. No MMT Ankle/Foot Strength Ankle and Foot Manual Muscle Testing stella Comments has anti gravity strength. No MMT PT-OP-N Lymphedema Start: 01/10/23 16:14 Freq: Status: Active Protocol: Document 03/29/23 10:27 [facility] (Rec: 03/29/23 11:12 [facility] [id number]) Lymphedema Measurements Lower Extremity Circumference Measurements Right Affected MT Heads 23.3 cm Mid-foot 25.9 cm Medial Malleolus 37.3 cm 10 cm From Medial Malleolus 51.9 cm 20 cm From Medial Malleolus 66.5 cm 30 cm From Medial Malleolus 72.7 cm 40 cm From Medial Malleolus 76.8 cm 50 cm From Medial Malleolus 81 cm 60 cm From Medial Malleolus 76 cm Knee Joint 75.3 cm Left Affected MT Heads 25 cm Mid-foot 26 cm Medial Malleolus 33.9 cm 10 cm From Medial Malleolus 43 cm 20 cm From Medial Malleolus 51.3 cm 30 cm From Medial Malleolus 59.3 cm 40 cm From Medial Malleolus 61.2 cm 50 cm From Medial Malleolus 73.5 cm 60 cm From Medial Malleolus 78.2 cm Knee Joint 61.8 cm - no dressing PT-OP-T Assessment and Plan Start: 01/10/23 16:14 Freq: Status: Active Protocol: Document 03/29/23 10:27 [facility] (Rec: 03/29/23 11:12 [facility] [id number]) Physical Therapy Assessment Goals Three Impairment impaired mobility and activity tolerance related to size of her legs Impairment uses FWW and doesn't go out of the house other than for medical appointments Short Term Goal (STG) Patient will be able to ambulate 500 ft with SPC with min assist STG Duration 03/13/23 Gun Tester Goal (LTG) Patient will be able to ambulate at least 1000 feet with least restrictive device to allow for return to community mobility LTG Duration 04/13/23 Two Impairment LYmphedema life impact scale 56% Short Term Goal (STG) Decrease Lymphedema life impact scale to no greater than 40% STG Duration 03/13/23 Penitentiary Goal (LTG) Decrease lymphedema life impact scale to no greater than 25% as measure of improved activity tolerance and quality of life LTG Duration 04/13/23 One Impairment Lymphedema stella LE's Short Term Goal (STG) Patient to be instructed in all aspects of lymphedema care to include skin care, MLD, compression, and lymphedema exercises STG Duration 03/13/23 Penitentiary Goal (LTG) Patient to be independent in all aspects of lymphedema care , LE circumferential measurements to be stable (no increase or decrease greater than 1 cm over the course of 1 week), and patient to obtain appropriate compression garments for stella LE lymphedema managements and possibly sequential pneumatic pump. LTG Duration 04/13/23 Progress Towards Goals Progress Towards Goals Progressing Toward Goals Assessment Summary Assessment Patient able to lift rilght leg onto plinth on her own today, can now put underwear on without using tonsorial artist. Decreased circumferential measurements. good progress. Increased work on fibrotic tissue in stella lower legs today with good tolerance. Physical Therapy Plan Frequency and Duration Frequency of Treatment 2x/Week Duration of treatment (weeks) 12 Plan of Care Start Date 01/11/23 Plan of Care End Date 04/13/23 Therapeutic Interventions Therapeutic Interventions Home Exercise Program, Lymphedema Management,Manual Therapy,Patient/Caregiver Education,Self-Care/Home Management,Therapeutic Activities,Therapeutic Exercises Next Visit Focus/Plan Next Note Type Treatment Note Next Visit Plan Continue lymphedema management . Further discussion of compression garments.
--- NOTE | 2023-03-29 16:25 | PT.OTN ---
Current Diagnoses Lymphedema, not elsewhere classified (03/29/23) Non-pressure chronic ulcer of other part of left lower leg with fat layer exposed (03/29/23) Soft tissue disorder, unspecified (03/29/23) Difficulty in walking, not elsewhere classified (03/29/23) Physical Therapy Treatment Note PT-OP-A Visit Information Start: 01/10/23 16:14 Freq: Status: Active Protocol: Document 03/29/23 10:27 [facility] (Rec: 03/29/23 11:12 [facility] [id number]) Out-Patient Physical Therapy Visit Information Visit Information Visit Type Treatment Note Visit Start Time 10:30 Visit Stop Time 12:00 Total Visit Minutes 90 Visit Number 10 Precautions Precautions endometrial cancer, nonhealing wound left LE PT-OP-B Current Condition Start: 01/10/23 16:14 Freq: Status: Active Protocol: Document 03/29/23 10:27 [facility] (Rec: 03/29/23 11:12 [facility] [id number]) Current Condition History of Current Condition Onset Date 22 months Current Complaints stella LE lymphedema History of Current Condition was travelling and knew something was wrong with her left leg, went to ER diagnosed with cellulitis stella LE's, was in hospital 28 days. 3 days before discharge developed lymphedema. Went to [facility] wound care, did not have good experience, no recommendation for PT. Now going to wound care at [facility] and PT was recommended. Using Vaseline due to dryness in legs. Has had multiple infections since that time. Then last year having vaginal bleeding and diagnosed with endometrial cancer. Has had 3 treatments of chemo. Can't have Obgyn surgery until infection in leg healed, possiblty more chemo. Sees oncologist tomorrow Dr. Merrick Hurtado in [place] at [facility]. Prior Treatments and Tests PMH: cellulitis, lymphedema stella LE's, peripheral neuropathy, morbid obesity, hysteroscopy, chronic non- healing ulcer left LE Future Testing and Treatments Planned Preparing for Obgyn surgery for endometrial cancer. PT-OP-C Subjective Start: 01/10/23 16:14 Freq: Status: Active Protocol: Document 03/29/23 10:27 [facility] (Rec: 03/29/23 11:12 [facility] [id number]) OP-PT Subjective Patient Comments Patient Comments Was able to walk around car without using walker or holding onto car this am, improving steadiness, strength , and balance. 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 Patient reports allergic to Artiflex, doesn't want to use. Had chemo last . Has CT Apr 20, sees oncologist May 05. PT-OP-G Mobility & Gait Start: 01/10/23 16:14 Freq: Status: Active Protocol: Document 01/11/23 07:56 [facility] (Rec: 01/11/23 16:21 [facility] [id number]) OP Mobility Evaluation Bed Mobility Supine to and from Sit mod assist for LE's Transfers Sit to Stand use of FWW with SBA OP Gait Assessment Gait Gait Assistance Required: Independent Distance (Feet) 60 Assistive Devices Assistive Device Front Wheeled Walker Orthotic/Prosthetic Devices or Brace: No Gait Deviations General Gait Pattern Decreased Stride Length, Decreased Feet Clearance, Flexed Trunk,Wide Based Gait Comments Gait Comments limited by weight of legs due to lymphedema PT-OP-J Posture/Palpation/Skin Start: 01/10/23 16:14 Freq: Status: Active Protocol: Document 01/11/23 07:56 [facility] (Rec: 01/11/23 16:21 [facility] [id number]) Skin Assessment Other Assessments Skin Assessment Comments hyperkeratosis and elephatiasis stella LE's PT-OP-K Range of Motion Start: 01/10/23 16:14 Freq: Status: Active Protocol: Document 01/11/23 07:56 [facility] (Rec: 01/11/23 16:21 [facility] [id number]) Hip Goniometric Range of Motion Hip ROM Limitations Hip ROM Limitations Swelling Comments moderate limitations Knee Goniometric Range of Motion Knee ROM Limitations Knee ROM Limitations Swelling Comments moderate limitations Ankle and Foot Goniometric Range of Motion Ankle and Foot ROM Limitations ROM Limitations Swelling Comments moderate limitations PT-OP-M Strength Start: 01/10/23 16:14 Freq: Status: Active Protocol: Document 01/11/23 07:56 [facility] (Rec: 01/11/23 16:21 [facility] [id number]) Hip Strength Hip Manual Muscle Testing stella Comments less than anti-gravity stregnth, requires assistance for legs on and off treatment table. No MMT Knee Strength Knee Manual Muscle Testing stella Comments has anti-gravity strength ext. No MMT Ankle/Foot Strength Ankle and Foot Manual Muscle Testing stella Comments has anti gravity strength. No MMT PT-OP-N Lymphedema Start: 01/10/23 16:14 Freq: Status: Active Protocol: Document 03/29/23 10:27 [facility] (Rec: 03/29/23 11:12 [facility] [id number]) Lymphedema Measurements Lower Extremity Circumference Measurements Right Affected MT Heads 23.3 cm Mid-foot 25.9 cm Medial Malleolus 37.3 cm 10 cm From Medial Malleolus 51.9 cm 20 cm From Medial Malleolus 66.5 cm 30 cm From Medial Malleolus 72.7 cm 40 cm From Medial Malleolus 76.8 cm 50 cm From Medial Malleolus 81 cm 60 cm From Medial Malleolus 76 cm Knee Joint 75.3 cm Left Affected MT Heads 25 cm Mid-foot 26 cm Medial Malleolus 33.9 cm 10 cm From Medial Malleolus 43 cm 20 cm From Medial Malleolus 51.3 cm 30 cm From Medial Malleolus 59.3 cm 40 cm From Medial Malleolus 61.2 cm 50 cm From Medial Malleolus 73.5 cm 60 cm From Medial Malleolus 78.2 cm Knee Joint 61.8 cm - no dressing PT-OP-Q Treatments Start: 01/10/23 16:14 Freq: Status: Active Protocol: Document 03/29/23 10:27 [facility] (Rec: 03/29/23 11:12 [facility] [id number]) Lymphedema Treatment Lymphedema Wrapping Body Location stella LE's MTP to upper thigh Materials Coban system with padding, extra black foam anterior ankle crease, covered by Coban Lite bilateral LEs MTP's to just below knees. Additional 2 wide Coban distal right foot. TRicofix size J, Artiflex, and 2 rolls 12cm Comprilan from below knees to upper thighs. Sequential Lymphedema Exercises Comments TrA, glut sets, LAQ, ankle pumps and circles, toe flex/ ext, deep bfreathing [ End ] Compression Garment Assessment Compression Garment Assessment Details Has not yet ordered due to finances and decrease in LE size with treatment. Other Other sequential pneumatic pump right LE during MLD left 20 min at 45 mm HG work on fibrotic tissue stella lower legs right greater than left PT-OP-T Assessment and Plan Start: 01/10/23 16:14 Freq: Status: Active Protocol: Document 03/29/23 10:27 [facility] (Rec: 03/29/23 11:12 [facility] [id number]) Physical Therapy Assessment Goals Three Impairment impaired mobility and activity tolerance related to size of her legs Impairment uses FWW and doesn't go out of the house other than for medical appointments Short Term Goal (STG) Patient will be able to ambulate 500 ft with SPC with min assist STG Duration 03/13/23 Mcfp Goal (LTG) Patient will be able to ambulate at least 1000 feet with least restrictive device to allow for return to community mobility LTG Duration 04/13/23 Two Impairment LYmphedema life impact scale 56% Short Term Goal (STG) Decrease Lymphedema life impact scale to no greater than 40% STG Duration 03/13/23 Mcfp Goal (LTG) Decrease lymphedema life impact scale to no greater than 25% as measure of improved activity tolerance and quality of life LTG Duration 04/13/23 One Impairment Lymphedema stella LE's Short Term Goal (STG) Patient to be instructed in all aspects of lymphedema care to include skin care, MLD, compression, and lymphedema exercises STG Duration 03/13/23 Reel Worker Goal (LTG) Patient to be independent in all aspects of lymphedema care , LE circumferential measurements to be stable (no increase or decrease greater than 1 cm over the course of 1 week), and patient to obtain appropriate compression garments for stella LE lymphedema managements and possibly sequential pneumatic pump. LTG Duration 04/13/23 Progress Towards Goals Progress Towards Goals Progressing Toward Goals Assessment Summary Assessment Patient able to lift rilght leg onto plinth on her own today, can now put underwear on without using drilling supervisor. Decreased circumferential measurements. good progress. Increased work on fibrotic tissue in stella lower legs today with good tolerance. Physical Therapy Plan Frequency and Duration Frequency of Treatment 2x/Week Duration of treatment (weeks) 12 Plan of Care Start Date 01/11/23 Plan of Care End Date 04/13/23 Therapeutic Interventions Therapeutic Interventions Home Exercise Program, Lymphedema Management,Manual Therapy,Patient/Caregiver Education,Self-Care/Home Management,Therapeutic Activities,Therapeutic Exercises Next Visit Focus/Plan Next Note Type Treatment Note Next Visit Plan Continue lymphedema management . Further discussion of compression garments.
--- NOTE | 2023-03-31 11:54 | PT.OTN ---
Current Diagnoses Lymphedema, not elsewhere classified (03/31/23) Non-pressure chronic ulcer of other part of left lower leg with fat layer exposed (03/31/23) Soft tissue disorder, unspecified (03/31/23) Difficulty in walking, not elsewhere classified (03/31/23) Physical Therapy Treatment Note PT-OP-A Visit Information Start: 01/10/23 16:14 Freq: Status: Active Protocol: Document 03/31/23 10:29 [facility] (Rec: 03/31/23 10:30 [facility] [id number]) Out-Patient Physical Therapy Visit Information Visit Information Visit Type Treatment Note Visit Start Time 10:30 Visit Stop Time 12:00 Total Visit Minutes 90 Visit Number 10 Precautions Precautions endometrial cancer, nonhealing wound left LE PT-OP-B Current Condition Start: 01/10/23 16:14 Freq: Status: Active Protocol: Document 03/31/23 10:29 [facility]AK (Rec: 03/31/23 10:30 [facility] [id number]) Current Condition History of Current Condition Onset Date 22 months Current Complaints stella LE lymphedema History of Current Condition was travelling and knew something was wrong with her left leg, went to ER diagnosed with cellulitis stella LE's, was in hospital 28 days. 3 days before discharge developed lymphedema. Went to [facility] wound care, did not have good experience, no recommendation for PT. Now going to wound care at [facility] and PT was recommended. Using Vaseline due to dryness in legs. Has had multiple infections since that time. Then last year having vaginal bleeding and diagnosed with endometrial cancer. Has had 3 treatments of chemo. Can't have Obgyn surgery until infection in leg healed, possiblty more chemo. Sees oncologist tomorrow Dr. Merrick Hurtado in [place] at [facility]. Prior Treatments and Tests PMH: cellulitis, lymphedema stella LE's, peripheral neuropathy, morbid obesity, hysteroscopy, chronic non- healing ulcer left LE Future Testing and Treatments Planned Preparing for Obgyn surgery for endometrial cancer. PT-OP-C Subjective Start: 01/10/23 16:14 Freq: Status: Active Protocol: Document 03/31/23 10:29 [facility]AK (Rec: 03/31/23 11:46 [facility] [id number]) OP-PT Subjective Patient Comments Patient Comments Continues to feel she can move her legs a little better. PT-OP-G Mobility & Gait Start: 01/10/23 16:14 Freq: Status: Active Protocol: Document 01/11/23 07:56 [facility] (Rec: 01/11/23 16:21 [facility] [id number]) OP Mobility Evaluation Bed Mobility Supine to and from Sit mod assist for LE's Transfers Sit to Stand use of FWW with SBA OP Gait Assessment Gait Gait Assistance Required: Independent Distance (Feet) 60 Assistive Devices Assistive Device Front Wheeled Walker Orthotic/Prosthetic Devices or Brace: No Gait Deviations General Gait Pattern Decreased Stride Length, Decreased Feet Clearance, Flexed Trunk,Wide Based Gait Comments Gait Comments limited by weight of legs due to lymphedema PT-OP-J Posture/Palpation/Skin Start: 01/10/23 16:14 Freq: Status: Active Protocol: Document 01/11/23 07:56 [facility] (Rec: 01/11/23 16:21 [facility] [id number]) Skin Assessment Other Assessments Skin Assessment Comments hyperkeratosis and elephatiasis stella LE's PT-OP-K Range of Motion Start: 01/10/23 16:14 Freq: Status: Active Protocol: Document 01/11/23 07:56 [facility] (Rec: 01/11/23 16:21 [facility] [id number]) Hip Goniometric Range of Motion Hip ROM Limitations Hip ROM Limitations Swelling Comments moderate limitations Knee Goniometric Range of Motion Knee ROM Limitations Knee ROM Limitations Swelling Comments moderate limitations Ankle and Foot Goniometric Range of Motion Ankle and Foot ROM Limitations ROM Limitations Swelling Comments moderate limitations PT-OP-M Strength Start: 01/10/23 16:14 Freq: Status: Active Protocol: Document 01/11/23 07:56 [facility] (Rec: 01/11/23 16:21 [facility] [id number]) Hip Strength Hip Manual Muscle Testing stella Comments less than anti-gravity stregnth, requires assistance for legs on and off treatment table. No MMT Knee Strength Knee Manual Muscle Testing stella Comments has anti-gravity strength ext. No MMT Ankle/Foot Strength Ankle and Foot Manual Muscle Testing stella Comments has anti gravity strength. No MMT PT-OP-N Lymphedema Start: 01/10/23 16:14 Freq: Status: Active Protocol: Document 03/29/23 10:27 [facility] (Rec: 03/29/23 11:12 [facility] [id number]) Lymphedema Measurements Lower Extremity Circumference Measurements Right Affected MT Heads 23.3 cm Mid-foot 25.9 cm Medial Malleolus 37.3 cm 10 cm From Medial Malleolus 51.9 cm 20 cm From Medial Malleolus 66.5 cm 30 cm From Medial Malleolus 72.7 cm 40 cm From Medial Malleolus 76.8 cm 50 cm From Medial Malleolus 81 cm 60 cm From Medial Malleolus 76 cm Knee Joint 75.3 cm Left Affected MT Heads 25 cm Mid-foot 26 cm Medial Malleolus 33.9 cm 10 cm From Medial Malleolus 43 cm 20 cm From Medial Malleolus 51.3 cm 30 cm From Medial Malleolus 59.3 cm 40 cm From Medial Malleolus 61.2 cm 50 cm From Medial Malleolus 73.5 cm 60 cm From Medial Malleolus 78.2 cm Knee Joint 61.8 cm - no dressing PT-OP-Q Treatments Start: 01/10/23 16:14 Freq: Status: Active Protocol: Document 03/31/23 10:29 [facility] (Rec: 03/31/23 10:30 [facility] [id number]) Lymphedema Treatment Lymphedema Wrapping Body Location stella LE's MTP to upper thigh Materials Coban system with padding, extra black foam anterior ankle crease, covered by Coban Lite bilateral LEs MTP's to just below knees. Additional 2 wide Coban distal right foot. TRicofix size J, Artiflex, and 2 rolls 12cm Comprilan from below knees to upper thighs. Sequential Lymphedema Exercises Comments TrA, glut sets, LAQ, ankle pumps and circles, toe flex/ ext, deep bfreathing [ End ] Compression Garment Assessment Compression Garment Assessment Details Has not yet ordered due to finances and decrease in LE size with treatment. Other Other sequential pneumatic pump right LE during MLD left 20 min at 45 mm HG work on fibrotic tissue stella lower legs right greater than left PT-OP-T Assessment and Plan Start: 01/10/23 16:14 Freq: Status: Active Protocol: Document 03/31/23 10:29 [facility] (Rec: 03/31/23 10:30 [facility] [id number]) Physical Therapy Assessment Goals Three Impairment impaired mobility and activity tolerance related to size of her legs Impairment uses FWW and doesn't go out of the house other than for medical appointments Short Term Goal (STG) Patient will be able to ambulate 500 ft with SPC with min assist STG Duration 03/13/23 Leg Assembler Goal (LTG) Patient will be able to ambulate at least 1000 feet with least restrictive device to allow for return to community mobility LTG Duration 04/13/23 Two Impairment LYmphedema life impact scale 56% Short Term Goal (STG) Decrease Lymphedema life impact scale to no greater than 40% STG Duration 03/13/23 Halfway Goal (LTG) Decrease lymphedema life impact scale to no greater than 25% as measure of improved activity tolerance and quality of life LTG Duration 04/13/23 One Impairment Lymphedema stella LE's Short Term Goal (STG) Patient to be instructed in all aspects of lymphedema care to include skin care, MLD, compression, and lymphedema exercises STG Duration 03/13/23 Halfway Goal (LTG) Patient to be independent in all aspects of lymphedema care , LE circumferential measurements to be stable (no increase or decrease greater than 1 cm over the course of 1 week), and patient to obtain appropriate compression garments for stella LE lymphedema managements and possibly sequential pneumatic pump. LTG Duration 04/13/23 Assessment Summary Assessment Softening of fibrotic tissue in LE's with treatment. Able to tolerate bandaging upper LE 's better without Artiflex. Cont to progress. Physical Therapy Plan Frequency and Duration Frequency of Treatment 2x/Week Duration of treatment (weeks) 12 Plan of Care Start Date 01/11/23 Plan of Care End Date 04/13/23 Therapeutic Interventions Therapeutic Interventions Home Exercise Program, Lymphedema Management,Manual Therapy,Patient/Caregiver Education,Self-Care/Home Management,Therapeutic Activities,Therapeutic Exercises Next Visit Focus/Plan Next Note Type Treatment Note Next Visit Plan Continue lymphedema management . Patient able to order compression capris 04/06/23.
--- NOTE | 2023-03-31 12:00 | PT.OPPN ---
Current Diagnoses Lymphedema, not elsewhere classified (04/05/23) Non-pressure chronic ulcer of other part of left lower leg with fat layer exposed (04/05/23) Soft tissue disorder, unspecified (04/05/23) Difficulty in walking, not elsewhere classified (04/05/23) Physical Therapy Progress Note PT-OP-A Visit Information Start: 01/10/23 16:14 Freq: Status: Active Protocol: Document 03/31/23 10:29 [facility] (Rec: 03/31/23 10:30 [facility] [id number]) Out-Patient Physical Therapy Visit Information Visit Information Visit Type Treatment Note Visit Start Time 10:30 Visit Stop Time 12:00 Total Visit Minutes 90 Visit Number 10 Precautions Precautions endometrial cancer, nonhealing wound left LE PT-OP-B Current Condition Start: 01/10/23 16:14 Freq: Status: Active Protocol: Document 03/31/23 10:29 [facility] (Rec: 03/31/23 10:30 [facility] [id number]) Current Condition History of Current Condition Onset Date 22 months Current Complaints stella LE lymphedema History of Current Condition was travelling and knew something was wrong with her left leg, went to ER diagnosed with cellulitis stella LE's, was in hospital 28 days. 3 days before discharge developed lymphedema. Went to [facility] wound care, did not have good experience, no recommendation for PT. Now going to wound care at [facility] and PT was recommended. Using Vaseline due to dryness in legs. Has had multiple infections since that time. Then last year having vaginal bleeding and diagnosed with endometrial cancer. Has had 3 treatments of chemo. Can't have Obgyn surgery until infection in leg healed, possiblty more chemo. Sees oncologist tomorrow Dr. Merrick Hurtado in [place] at [facility]. Prior Treatments and Tests PMH: cellulitis, lymphedema stella LE's, peripheral neuropathy, morbid obesity, hysteroscopy, chronic non- healing ulcer left LE Future Testing and Treatments Planned Preparing for Obgyn surgery for endometrial cancer. PT-OP-C Subjective Start: 01/10/23 16:14 Freq: Status: Active Protocol: Document 03/31/23 10:29 [facility] (Rec: 03/31/23 11:46 [facility] [id number]) OP-PT Subjective Patient Comments Patient Comments Continues to feel she can move her legs a little better. PT-OP-G Mobility & Gait Start: 01/10/23 16:14 Freq: Status: Active Protocol: Document 01/11/23 07:56 [facility] (Rec: 01/11/23 16:21 [facility] [id number]) OP Mobility Evaluation Bed Mobility Supine to and from Sit mod assist for LE's Transfers Sit to Stand use of FWW with SBA OP Gait Assessment Gait Gait Assistance Required: Independent Distance (Feet) 60 Assistive Devices Assistive Device Front Wheeled Walker Orthotic/Prosthetic Devices or Brace: No Gait Deviations General Gait Pattern Decreased Stride Length, Decreased Feet Clearance, Flexed Trunk,Wide Based Gait Comments Gait Comments limited by weight of legs due to lymphedema PT-OP-J Posture/Palpation/Skin Start: 01/10/23 16:14 Freq: Status: Active Protocol: Document 01/11/23 07:56 [facility] (Rec: 01/11/23 16:21 [facility] [id number]) Skin Assessment Other Assessments Skin Assessment Comments hyperkeratosis and elephatiasis stella LE's PT-OP-K Range of Motion Start: 01/10/23 16:14 Freq: Status: Active Protocol: Document 01/11/23 07:56 [facility] (Rec: 01/11/23 16:21 [facility] [id number]) Hip Goniometric Range of Motion Hip ROM Limitations Hip ROM Limitations Swelling Comments moderate limitations Knee Goniometric Range of Motion Knee ROM Limitations Knee ROM Limitations Swelling Comments moderate limitations Ankle and Foot Goniometric Range of Motion Ankle and Foot ROM Limitations ROM Limitations Swelling Comments moderate limitations PT-OP-M Strength Start: 01/10/23 16:14 Freq: Status: Active Protocol: Document 01/11/23 07:56 [facility] (Rec: 01/11/23 16:21 [facility] [id number]) Hip Strength Hip Manual Muscle Testing stella Comments less than anti-gravity stregnth, requires assistance for legs on and off treatment table. No MMT Knee Strength Knee Manual Muscle Testing stella Comments has anti-gravity strength ext. No MMT Ankle/Foot Strength Ankle and Foot Manual Muscle Testing stella Comments has anti gravity strength. No MMT PT-OP-N Lymphedema Start: 01/10/23 16:14 Freq: Status: Active Protocol: Document 03/29/23 10:27 [facility] (Rec: 03/29/23 11:12 [facility] [id number]) Lymphedema Measurements Lower Extremity Circumference Measurements Right Affected MT Heads 23.3 cm Mid-foot 25.9 cm Medial Malleolus 37.3 cm 10 cm From Medial Malleolus 51.9 cm 20 cm From Medial Malleolus 66.5 cm 30 cm From Medial Malleolus 72.7 cm 40 cm From Medial Malleolus 76.8 cm 50 cm From Medial Malleolus 81 cm 60 cm From Medial Malleolus 76 cm Knee Joint 75.3 cm Left Affected MT Heads 25 cm Mid-foot 26 cm Medial Malleolus 33.9 cm 10 cm From Medial Malleolus 43 cm 20 cm From Medial Malleolus 51.3 cm 30 cm From Medial Malleolus 59.3 cm 40 cm From Medial Malleolus 61.2 cm 50 cm From Medial Malleolus 73.5 cm 60 cm From Medial Malleolus 78.2 cm Knee Joint 61.8 cm - no dressing PT-OP-T Assessment and Plan Start: 01/10/23 16:14 Freq: Status: Active Protocol: Document 03/31/23 10:29 [facility] (Rec: 03/31/23 10:30 [facility] [id number]) Physical Therapy Assessment Goals Three Impairment impaired mobility and activity tolerance related to size of her legs Impairment uses FWW and doesn't go out of the house other than for medical appointments Short Term Goal (STG) Patient will be able to ambulate 500 ft with SPC with min assist STG Duration 03/13/23 Cement Sack Breaker Goal (LTG) Patient will be able to ambulate at least 1000 feet with least restrictive device to allow for return to community mobility LTG Duration 04/13/23 Two Impairment LYmphedema life impact scale 56% Short Term Goal (STG) Decrease Lymphedema life impact scale to no greater than 40% STG Duration 03/13/23 Penitentiary Goal (LTG) Decrease lymphedema life impact scale to no greater than 25% as measure of improved activity tolerance and quality of life LTG Duration 04/13/23 One Impairment Lymphedema stella LE's Short Term Goal (STG) Patient to be instructed in all aspects of lymphedema care to include skin care, MLD, compression, and lymphedema exercises STG Duration 03/13/23 Cement Sack Breaker Goal (LTG) Patient to be independent in all aspects of lymphedema care , LE circumferential measurements to be stable (no increase or decrease greater than 1 cm over the course of 1 week), and patient to obtain appropriate compression garments for stella LE lymphedema managements and possibly sequential pneumatic pump. LTG Duration 04/13/23 Assessment Summary Assessment Softening of fibrotic tissue in LE's with treatment. Able to tolerate bandaging upper LE 's better without Artiflex. Cont to progress. Physical Therapy Plan Frequency and Duration Frequency of Treatment 2x/Week Duration of treatment (weeks) 12 Plan of Care Start Date 01/11/23 Plan of Care End Date 04/13/23 Therapeutic Interventions Therapeutic Interventions Home Exercise Program, Lymphedema Management,Manual Therapy,Patient/Caregiver Education,Self-Care/Home Management,Therapeutic Activities,Therapeutic Exercises Next Visit Focus/Plan Next Note Type Treatment Note Next Visit Plan Continue lymphedema management . Patient able to order compression capris 04/06/23.
--- NOTE | 2023-04-06 16:29 | PT.OTN ---
Current Diagnoses Lymphedema, not elsewhere classified (04/05/23) Non-pressure chronic ulcer of other part of left lower leg with fat layer exposed (04/05/23) Soft tissue disorder, unspecified (04/05/23) Difficulty in walking, not elsewhere classified (04/05/23) Physical Therapy Treatment Note PT-OP-A Visit Information Start: 01/10/23 16:14 Freq: Status: Active Protocol: Document 04/05/23 10:20 SAK (Rec: 04/05/23 10:52 [facility] [id number]) Out-Patient Physical Therapy Visit Information Visit Information Visit Type Treatment Note Visit Start Time 10:25 Visit Stop Time 11:55 Total Visit Minutes 90 Visit Number 11 Precautions Precautions endometrial cancer, nonhealing wound left LE PT-OP-B Current Condition Start: 01/10/23 16:14 Freq: Status: Active Protocol: Document 04/05/23 10:20 SAK (Rec: 04/05/23 10:52 [facility] [id number]) Current Condition History of Current Condition Onset Date 22 months Current Complaints stella LE lymphedema History of Current Condition was travelling and knew something was wrong with her left leg, went to ER diagnosed with cellulitis stella LE's, was in hospital 28 days. 3 days before discharge developed lymphedema. Went to [facility] wound care, did not have good experience, no recommendation for PT. Now going to wound care at [facility] and PT was recommended. Using Vaseline due to dryness in legs. Has had multiple infections since that time. Then last year having vaginal bleeding and diagnosed with endometrial cancer. Has had 3 treatments of chemo. Can't have Obgyn surgery until infection in leg healed, possiblty more chemo. Sees oncologist tomorrow Dr. Merrick Hurtado in [place] at [facility]. Prior Treatments and Tests PMH: cellulitis, lymphedema stella LE's, peripheral neuropathy, morbid obesity, hysteroscopy, chronic non- healing ulcer left LE Future Testing and Treatments Planned Preparing for Obgyn surgery for endometrial cancer. PT-OP-C Subjective Start: 01/10/23 16:14 Freq: Status: Active Protocol: Document 04/05/23 10:20 SAK (Rec: 04/05/23 10:52 [facility] [id number]) OP-PT Subjective Patient Comments Patient Comments Reports wound care stated almost healed, maybe 2 weeks more, measurements improved. Able to use cane for first time since last fall, trying to move more. Continues with healing, hopeful to be able to have surgery soon. PT-OP-G Mobility & Gait Start: 01/10/23 16:14 Freq: Status: Active Protocol: Document 01/11/23 07:56 [facility] (Rec: 01/11/23 16:21 [facility] [id number]) OP Mobility Evaluation Bed Mobility Supine to and from Sit mod assist for LE's Transfers Sit to Stand use of FWW with SBA OP Gait Assessment Gait Gait Assistance Required: Independent Distance (Feet) 60 Assistive Devices Assistive Device Front Wheeled Walker Orthotic/Prosthetic Devices or Brace: No Gait Deviations General Gait Pattern Decreased Stride Length, Decreased Feet Clearance, Flexed Trunk,Wide Based Gait Comments Gait Comments limited by weight of legs due to lymphedema PT-OP-J Posture/Palpation/Skin Start: 01/10/23 16:14 Freq: Status: Active Protocol: Document 01/11/23 07:56 [facility] (Rec: 01/11/23 16:21 [facility] [id number]) Skin Assessment Other Assessments Skin Assessment Comments hyperkeratosis and elephatiasis stella LE's PT-OP-K Range of Motion Start: 01/10/23 16:14 Freq: Status: Active Protocol: Document 01/11/23 07:56 [facility] (Rec: 01/11/23 16:21 [facility] [id number]) Hip Goniometric Range of Motion Hip ROM Limitations Hip ROM Limitations Swelling Comments moderate limitations Knee Goniometric Range of Motion Knee ROM Limitations Knee ROM Limitations Swelling Comments moderate limitations Ankle and Foot Goniometric Range of Motion Ankle and Foot ROM Limitations ROM Limitations Swelling Comments moderate limitations PT-OP-M Strength Start: 01/10/23 16:14 Freq: Status: Active Protocol: Document 01/11/23 07:56 [facility] (Rec: 01/11/23 16:21 [facility] [id number]) Hip Strength Hip Manual Muscle Testing stella Comments less than anti-gravity stregnth, requires assistance for legs on and off treatment table. No MMT Knee Strength Knee Manual Muscle Testing stella Comments has anti-gravity strength ext. No MMT Ankle/Foot Strength Ankle and Foot Manual Muscle Testing stella Comments has anti gravity strength. No MMT PT-OP-N Lymphedema Start: 01/10/23 16:14 Freq: Status: Active Protocol: Document 04/05/23 10:20 [facility] (Rec: 04/05/23 10:52 [facility] [id number]) Lymphedema Measurements Lower Extremity Circumference Measurements Right Affected MT Heads 23.3 cm Mid-foot 26.1 cm Medial Malleolus 36 cm 10 cm From Medial Malleolus 48 cm 20 cm From Medial Malleolus 61.5 cm 30 cm From Medial Malleolus 67.9 cm 40 cm From Medial Malleolus 68.5 cm 50 cm From Medial Malleolus 83 cm 60 cm From Medial Malleolus 78 cm Knee Joint 78.2 cm Left Affected MT Heads 25.7 cm Mid-foot 26.1 cm Medial Malleolus 35 cm 10 cm From Medial Malleolus 41.5 cm 20 cm From Medial Malleolus 51 cm 30 cm From Medial Malleolus 55.7 cm 40 cm From Medial Malleolus 60.5 cm 50 cm From Medial Malleolus 72 cm 60 cm From Medial Malleolus 76.9 cm Knee Joint 59.1 cm - no dressing PT-OP-Q Treatments Start: 01/10/23 16:14 Freq: Status: Active Protocol: Document 04/05/23 10:20 [facility] (Rec: 04/05/23 10:52 [facility] [id number]) Therapeutic Exercises Sitting Exercises deep breathing Reps/Minutes 5x3 LAQ Reps/Minutes 10x ea ankle pumps Reps/Minutes 10x2 sit to stand Reps/Minutes 3x throughout session Comments elevated hi-lo table Lymphedema Treatment Lymphedema Wrapping Body Location stella LE's MTP to upper thigh Materials Coban system with padding, extra black foam anterior ankle crease, covered by Coban Lite bilateral LEs MTP's to just below knees. Additional 2 wide Coban distal right foot. TRicofix size J, Artiflex, and 2 rolls 12cm Comprilan from below knees to upper thighs. Sequential Lymphedema Exercises Comments TrA, glut sets, LAQ, ankle pumps and circles, toe flex/ ext, deep bfreathing [ End ] Compression Garment Assessment Compression Garment Assessment Details to order tomorrow Other Other sequential pneumatic pump right LE during MLD left 20 min at 45 mm HG work on fibrotic tissue stella lower legs right greater than left PT-OP-T Assessment and Plan Start: 01/10/23 16:14 Freq: Status: Active Protocol: Document 04/05/23 10:20 KATIA (Rec: 04/05/23 10:52 [facility] [id number]) Physical Therapy Assessment Goals Three Impairment impaired mobility and activity tolerance related to size of her legs Impairment uses FWW and doesn't go out of the house other than for medical appointments Short Term Goal (STG) Patient will be able to ambulate 500 ft with SPC with min assist 04/05/23: goal met STG Duration goal met Outside Plant Field Engineer Goal (LTG) Patient will be able to ambulate at least 1000 feet with least restrictive device to allow for return to community mobility LTG Duration 04/13/23 Two Impairment LYmphedema life impact scale 56% Short Term Goal (STG) Decrease Lymphedema life impact scale to no greater than 40% 04/05/23: goal met STG Duration goal met Outside Plant Field Engineer Goal (LTG) Decrease lymphedema life impact scale to no greater than 25% as measure of improved activity tolerance and quality of life LTG Duration 04/13/23 One Impairment Lymphedema stella LE's Short Term Goal (STG) Patient to be instructed in all aspects of lymphedema care to include skin care, MLD, compression, and lymphedema exercises 04/05/23: goal met STG Duration goal met Outside Plant Field Engineer Goal (LTG) Patient to be independent in all aspects of lymphedema care , LE circumferential measurements to be stable (no increase or decrease greater than 1 cm over the course of 1 week), and patient to obtain appropriate compression garments for stella LE lymphedema managements and possibly sequential pneumatic pump. LTG Duration 04/13/23 Assessment Summary Assessment Circumferential measurements continue to decrease, patient with good compliance to deep breathing, exercise, elevation despite her living situation in car. Continues with chemotherapy which may be having positive effect on her lymphedema as well. Physical Therapy Plan Frequency and Duration Frequency of Treatment 2x/Week Duration of treatment (weeks) 12 Plan of Care Start Date 01/11/23 Plan of Care End Date 04/13/23 Therapeutic Interventions Therapeutic Interventions Home Exercise Program, Lymphedema Management,Manual Therapy,Patient/Caregiver Education,Self-Care/Home Management,Therapeutic Activities,Therapeutic Exercises Next Visit Focus/Plan Next Note Type Treatment Note Next Visit Plan Continue lymphedema management . Patient able to order compression capris 04/06/23.
--- NOTE | 2023-04-07 11:59 | PT.OTN ---
Current Diagnoses Lymphedema, not elsewhere classified (04/07/23) Non-pressure chronic ulcer of other part of left lower leg with fat layer exposed (04/07/23) Soft tissue disorder, unspecified (04/07/23) Difficulty in walking, not elsewhere classified (04/07/23) Physical Therapy Treatment Note PT-OP-A Visit Information Start: 01/10/23 16:14 Freq: Status: Active Protocol: Document 04/07/23 10:27 SAK (Rec: 04/07/23 10:30 [facility] [id number]) Out-Patient Physical Therapy Visit Information Visit Information Visit Type Treatment Note Visit Note ordered compression capris Visit Start Time 10:30 Visit Stop Time 11:55 Total Visit Minutes 85 Visit Number 12 Precautions Precautions endometrial cancer, nonhealing wound left LE PT-OP-B Current Condition Start: 01/10/23 16:14 Freq: Status: Active Protocol: Document 04/07/23 10:27 SAK (Rec: 04/07/23 10:30 [facility] [id number]) Current Condition History of Current Condition Onset Date 22 months Current Complaints stella LE lymphedema History of Current Condition was travelling and knew something was wrong with her left leg, went to ER diagnosed with cellulitis stella LE's, was in hospital 28 days. 3 days before discharge developed lymphedema. Went to [facility] wound care, did not have good experience, no recommendation for PT. Now going to wound care at [facility] and PT was recommended. Using Vaseline due to dryness in legs. Has had multiple infections since that time. Then last year having vaginal bleeding and diagnosed with endometrial cancer. Has had 3 treatments of chemo. Can't have Obgyn surgery until infection in leg healed, possiblty more chemo. Sees oncologist tomorrow Dr. Merrick Hurtado in [place] at [facility]. Prior Treatments and Tests PMH: cellulitis, lymphedema stella LE's, peripheral neuropathy, morbid obesity, hysteroscopy, chronic non- healing ulcer left LE Future Testing and Treatments Planned Preparing for Obgyn surgery for endometrial cancer. PT-OP-C Subjective Start: 01/10/23 16:14 Freq: Status: Active Protocol: Document 04/05/23 10:20 SAK (Rec: 04/05/23 10:52 [facility] [id number]) OP-PT Subjective Patient Comments Patient Comments Reports wound care stated almost healed, maybe 2 weeks more, measurements improved. Able to use cane for first time since last fall, trying to move more. Continues with healing, hopeful to be able to have surgery soon. PT-OP-G Mobility & Gait Start: 01/10/23 16:14 Freq: Status: Active Protocol: Document 01/11/23 07:56 [facility] (Rec: 01/11/23 16:21 [facility] [id number]) OP Mobility Evaluation Bed Mobility Supine to and from Sit mod assist for LE's Transfers Sit to Stand use of FWW with SBA OP Gait Assessment Gait Gait Assistance Required: Independent Distance (Feet) 60 Assistive Devices Assistive Device Front Wheeled Walker Orthotic/Prosthetic Devices or Brace: No Gait Deviations General Gait Pattern Decreased Stride Length, Decreased Feet Clearance, Flexed Trunk,Wide Based Gait Comments Gait Comments limited by weight of legs due to lymphedema PT-OP-J Posture/Palpation/Skin Start: 01/10/23 16:14 Freq: Status: Active Protocol: Document 01/11/23 07:56 [facility] (Rec: 01/11/23 16:21 [facility] [id number]) Skin Assessment Other Assessments Skin Assessment Comments hyperkeratosis and elephatiasis stella LE's PT-OP-K Range of Motion Start: 01/10/23 16:14 Freq: Status: Active Protocol: Document 01/11/23 07:56 [facility] (Rec: 01/11/23 16:21 [facility] [id number]) Hip Goniometric Range of Motion Hip ROM Limitations Hip ROM Limitations Swelling Comments moderate limitations Knee Goniometric Range of Motion Knee ROM Limitations Knee ROM Limitations Swelling Comments moderate limitations Ankle and Foot Goniometric Range of Motion Ankle and Foot ROM Limitations ROM Limitations Swelling Comments moderate limitations PT-OP-M Strength Start: 01/10/23 16:14 Freq: Status: Active Protocol: Document 01/11/23 07:56 [facility] (Rec: 01/11/23 16:21 [facility] [id number]) Hip Strength Hip Manual Muscle Testing stella Comments less than anti-gravity stregnth, requires assistance for legs on and off treatment table. No MMT Knee Strength Knee Manual Muscle Testing stella Comments has anti-gravity strength ext. No MMT Ankle/Foot Strength Ankle and Foot Manual Muscle Testing stella Comments has anti gravity strength. No MMT PT-OP-N Lymphedema Start: 01/10/23 16:14 Freq: Status: Active Protocol: Document 04/05/23 10:20 [facility] (Rec: 04/05/23 10:52 [facility] [id number]) Lymphedema Measurements Lower Extremity Circumference Measurements Right Affected MT Heads 23.3 cm Mid-foot 26.1 cm Medial Malleolus 36 cm 10 cm From Medial Malleolus 48 cm 20 cm From Medial Malleolus 61.5 cm 30 cm From Medial Malleolus 67.9 cm 40 cm From Medial Malleolus 68.5 cm 50 cm From Medial Malleolus 83 cm 60 cm From Medial Malleolus 78 cm Knee Joint 78.2 cm Left Affected MT Heads 25.7 cm Mid-foot 26.1 cm Medial Malleolus 35 cm 10 cm From Medial Malleolus 41.5 cm 20 cm From Medial Malleolus 51 cm 30 cm From Medial Malleolus 55.7 cm 40 cm From Medial Malleolus 60.5 cm 50 cm From Medial Malleolus 72 cm 60 cm From Medial Malleolus 76.9 cm Knee Joint 59.1 cm - no dressing PT-OP-Q Treatments Start: 01/10/23 16:14 Freq: Status: Active Protocol: Document 04/07/23 10:27 [facility] (Rec: 04/07/23 10:30 [facility] [id number]) Therapeutic Exercises Supine Exercises ankle pumps Reps/Minutes 10x2 deep breathing Reps/Minutes 5x3 Sitting Exercises deep breathing Reps/Minutes 5x3 LAQ Reps/Minutes 10x ea ankle pumps Reps/Minutes 10x2 sit to stand Reps/Minutes 3x throughout session Comments elevated hi-lo table Lymphedema Treatment Lymphedema Wrapping Body Location stella LE's MTP to upper thigh Materials Coban system with padding, extra black foam anterior ankle crease, covered by Coban Lite bilateral LEs MTP's to just below knees. Additional 2 wide Coban distal right foot. TRicofix size J, Artiflex, and 2 rolls 12cm Comprilan from below knees to upper thighs. Sequential Lymphedema Exercises Comments TrA, glut sets, LAQ, ankle pumps and circles, toe flex/ ext, deep bfreathing [ End ] Other Other sequential pneumatic pump right LE during MLD left 20 min at 45 mm HG work on fibrotic tissue stella lower legs right greater than left PT-OP-T Assessment and Plan Start: 01/10/23 16:14 Freq: Status: Active Protocol: Document 04/07/23 10:27 KATIA (Rec: 04/07/23 10:30 [facility] [id number]) Physical Therapy Assessment Goals Three Impairment impaired mobility and activity tolerance related to size of her legs Impairment uses FWW and doesn't go out of the house other than for medical appointments Short Term Goal (STG) Patient will be able to ambulate 500 ft with SPC with min assist 04/05/23: goal met STG Duration goal met Mcfp Goal (LTG) Patient will be able to ambulate at least 1000 feet with least restrictive device to allow for return to community mobility LTG Duration 04/13/23 Two Impairment LYmphedema life impact scale 56% Short Term Goal (STG) Decrease Lymphedema life impact scale to no greater than 40% 04/05/23: goal met STG Duration goal met Business Center Representative Goal (LTG) Decrease lymphedema life impact scale to no greater than 25% as measure of improved activity tolerance and quality of life LTG Duration 04/13/23 One Impairment Lymphedema stella LE's Short Term Goal (STG) Patient to be instructed in all aspects of lymphedema care to include skin care, MLD, compression, and lymphedema exercises 04/05/23: goal met STG Duration goal met Mcfp Goal (LTG) Patient to be independent in all aspects of lymphedema care , LE circumferential measurements to be stable (no increase or decrease greater than 1 cm over the course of 1 week), and patient to obtain appropriate compression garments for stella LE lymphedema managements and possibly sequential pneumatic pump. LTG Duration 04/13/23 Assessment Summary Assessment Continue to note improved skin texture with gradual dec in fibrosis with manual techniques. Pt has ordered compression capris. Physical Therapy Plan Frequency and Duration Frequency of Treatment 2x/Week Duration of treatment (weeks) 12 Plan of Care Start Date 01/11/23 Plan of Care End Date 04/13/23 Therapeutic Interventions Therapeutic Interventions Home Exercise Program, Lymphedema Management,Manual Therapy,Patient/Caregiver Education,Self-Care/Home Management,Therapeutic Activities,Therapeutic Exercises Next Visit Focus/Plan Next Note Type Treatment Note Next Visit Plan Continue lymphedema management . Focus on manual techniques to continue to decrease tissue fibrosis, bandaging.
--- NOTE | 2023-04-12 16:44 | PT.OTRE ---
Current Diagnoses Lymphedema, not elsewhere classified (04/12/23) Non-pressure chronic ulcer of other part of left lower leg with fat layer exposed (04/12/23) Soft tissue disorder, unspecified (04/12/23) Difficulty in walking, not elsewhere classified (04/12/23) Visit Care Team Role Provider Type Geovani Elder DO Family Provider Non-Staff Primary Care Provider Specialty: Medical Address: [address] [place] [address] Dr. Mike De Los Santos, [place], [address] Email: Nicolás Schrader MD Attending Provider Physician Referring Provider Specialty: Wound Care Address: [address] [place] [address], [id number] Email: [email or web address] Physical Therapy Re-Evaluation PT-OP-A Visit Information Start: 01/10/23 16:14 Freq: Status: Active Protocol: Document 04/12/23 10:33 SAK (Rec: 04/12/23 12:00 SAK [id number]) Out-Patient Physical Therapy Visit Information Visit Information Visit Type Treatment Note Visit Start Time 10:30 Visit Stop Time 11:55 Total Visit Minutes 85 Visit Number 12 Precautions Precautions endometrial cancer, nonhealing wound left LE PT-OP-B Current Condition Start: 01/10/23 16:14 Freq: Status: Active Protocol: Document 04/12/23 10:33 SAK (Rec: 04/12/23 12:00 SAK [id number]) Current Condition History of Current Condition Onset Date 22 months Current Complaints stella LE lymphedema History of Current Condition was travelling and knew something was wrong with her left leg, went to ER diagnosed with cellulitis stella LE's, was in hospital 28 days. 3 days before discharge developed lymphedema. Went to [facility] wound care, did not have good experience, no recommendation for PT. Now going to wound care at [facility] and PT was recommended. Using Vaseline due to dryness in legs. Has had multiple infections since that time. Then last year having vaginal bleeding and diagnosed with endometrial cancer. Has had 3 treatments of chemo. Can't have Obgyn surgery until infection in leg healed, possiblty more chemo. Sees oncologist tomorrow Dr. Merrick Hurtado in [place] at [facility]. Prior Treatments and Tests PMH: cellulitis, lymphedema stella LE's, peripheral neuropathy, morbid obesity, hysteroscopy, chronic non- healing ulcer left LE Future Testing and Treatments Planned Preparing for Obgyn surgery for endometrial cancer. PT-OP-C Subjective Start: 01/10/23 16:14 Freq: Status: Active Protocol: Document 04/12/23 10:33 SAK (Rec: 04/12/23 12:00 [facility] [id number]) OP-PT Subjective Patient Comments Patient Comments Sees surgeon 08/04/23. States wound care will likely be finished next week. Had to remove bandaging on upper right leg Tuesday, left upper leg yesterday due to pain. Should have the compression capris this Tuesday. PT-OP-G Mobility & Gait Start: 01/10/23 16:14 Freq: Status: Active Protocol: Document 01/11/23 07:56 [facility] (Rec: 01/11/23 16:21 [facility] [id number]) OP Mobility Evaluation Bed Mobility Supine to and from Sit mod assist for LE's Transfers Sit to Stand use of FWW with SBA OP Gait Assessment Gait Gait Assistance Required: Independent Distance (Feet) 60 Assistive Devices Assistive Device Front Wheeled Walker Orthotic/Prosthetic Devices or Brace: No Gait Deviations General Gait Pattern Decreased Stride Length, Decreased Feet Clearance, Flexed Trunk,Wide Based Gait Comments Gait Comments limited by weight of legs due to lymphedema PT-OP-J Posture/Palpation/Skin Start: 01/10/23 16:14 Freq: Status: Active Protocol: Document 01/11/23 07:56 [facility] (Rec: 01/11/23 16:21 [facility] [id number]) Skin Assessment Other Assessments Skin Assessment Comments hyperkeratosis and elephatiasis stella LE's PT-OP-K Range of Motion Start: 01/10/23 16:14 Freq: Status: Active Protocol: Document 01/11/23 07:56 [facility] (Rec: 01/11/23 16:21 [facility] [id number]) Hip Goniometric Range of Motion Hip ROM Limitations Hip ROM Limitations Swelling Comments moderate limitations Knee Goniometric Range of Motion Knee ROM Limitations Knee ROM Limitations Swelling Comments moderate limitations Ankle and Foot Goniometric Range of Motion Ankle and Foot ROM Limitations ROM Limitations Swelling Comments moderate limitations PT-OP-M Strength Start: 01/10/23 16:14 Freq: Status: Active Protocol: Document 01/11/23 07:56 SAK (Rec: 01/11/23 16:21 SAK [id number]) Hip Strength Hip Manual Muscle Testing stella Comments less than anti-gravity stregnth, requires assistance for legs on and off treatment table. No MMT Knee Strength Knee Manual Muscle Testing stella Comments has anti-gravity strength ext. No MMT Ankle/Foot Strength Ankle and Foot Manual Muscle Testing stella Comments has anti gravity strength. No MMT PT-OP-N Lymphedema Start: 01/10/23 16:14 Freq: Status: Active Protocol: Document 04/12/23 10:33 SAK (Rec: 04/12/23 12:00 SAK [id number]) Lymphedema Measurements Lower Extremity Circumference Measurements Right Affected MT Heads 26.2 cm Mid-foot 25.6 cm Medial Malleolus 35.8 cm 10 cm From Medial Malleolus 47 cm 20 cm From Medial Malleolus 60.9 cm 30 cm From Medial Malleolus 66.4 cm 40 cm From Medial Malleolus 70.9 cm 50 cm From Medial Malleolus 84.3 cm 60 cm From Medial Malleolus 78 cm Knee Joint 78.4 cm - measured from bottom of foot Left Affected MT Heads 25 cm Mid-foot 26.2 cm Medial Malleolus 33.3 cm 10 cm From Medial Malleolus 41.4 cm 20 cm From Medial Malleolus 50.6 cm 30 cm From Medial Malleolus 59.4 cm 40 cm From Medial Malleolus 63.4 cm 50 cm From Medial Malleolus 73.7 cm 60 cm From Medial Malleolus 77.8 cm Knee Joint 59.2 cm PT-OP-Q Treatments Start: 01/10/23 16:14 Freq: Status: Active Protocol: Document 04/12/23 10:33 SAK (Rec: 04/12/23 12:00 SAK [id number]) Lymphedema Treatment Patient Education Compression Garments discussed compression alternatives, looked at pictures online, options Other PT recommends thigh high compression alternatives due to severity of lymphedema, wounds stella lower legs with need for full fluid clearance from LE's. Other Other sequential pneumatic pump right LE during MLD left 20 min at 45 mm HG work on fibrotic tissue stella lower legs right greater than left PT-OP-T Assessment and Plan Start: 01/10/23 16:14 Freq: Status: Active Protocol: Document 04/12/23 10:33 [facility] (Rec: 04/12/23 12:00 [facility] [id number]) Physical Therapy Assessment Goals Three Impairment impaired mobility and activity tolerance related to size of her legs Impairment uses FWW and doesn't go out of the house other than for medical appointments Short Term Goal (STG) Patient will be able to ambulate 500 ft with SPC with min assist 04/05/23: goal met STG Duration goal met Mcfp Goal (LTG) Patient will be able to ambulate at least 1000 feet with least restrictive device to allow for return to community mobility 04/18/23: goal progress, patient reports increased ease of lifting LE's, now able to get on and off treatment table on own 75% of time LTG Duration 06/12/23 Two Impairment LYmphedema life impact scale 56% Short Term Goal (STG) Decrease Lymphedema life impact scale to no greater than 40% 04/05/23: goal met STG Duration goal met Mcfp Goal (LTG) Decrease lymphedema life impact scale to no greater than 25% as measure of improved activity tolerance and quality of life 04/13/23: goal progress, not fully achieved LTG Duration 06/12/23 One Impairment Lymphedema stella LE's Short Term Goal (STG) Patient to be instructed in all aspects of lymphedema care to include skin care, MLD, compression, and lymphedema exercises 04/05/23: goal met STG Duration goal met Rn Renal Goal (LTG) Patient to be independent in all aspects of lymphedema care , LE circumferential measurements to be stable (no increase or decrease greater than 1 cm over the course of 1 week), and patient to obtain appropriate compression garments for stella LE lymphedema managements and possibly sequential pneumatic pump. 04/12/23: Patient is challenged by wearing adequate compression due to body size and shape and difficulty reaching, as well as financial concerns as she is currently living out of her car. LTG Duration 06/12/23 Assessment Summary Assessment Increased edema knees and thighs due to removal of compression bandaging; applied educational diagnostician today for improved tolerance. Recommending patient obtain new compression alternative garments, ideally full length toe to groin due to history of wounds, variability of edema, difficulty donning compression stockings. REcommend continued PT to address above goals. Physical Therapy Plan Frequency and Duration Frequency of Treatment 2x/Week Duration of treatment (weeks) Plan of Care Start Date 04/12/23 Plan of Care End Date 06/12/23 Therapeutic Interventions Therapeutic Interventions Home Exercise Program, Lymphedema Management,Manual Therapy,Patient/Caregiver Education,Self-Care/Home Management,Therapeutic Activities,Therapeutic Exercises Next Visit Focus/Plan Next Note Type Treatment Note Next Visit Plan Complete paperwork for ordering compression alternatives for patient. Continue lymphedema management . Focus on manual techniques to continue to decrease tissue fibrosis, bandaging.
--- NOTE | 2023-04-12 16:44 | PT.OPPOC ---
Physical, Occupational & Speech Therapy At [facility] Current Diagnoses Lymphedema, not elsewhere classified (04/12/23) Non-pressure chronic ulcer of other part of left lower leg with fat layer exposed (04/12/23) Soft tissue disorder, unspecified (04/12/23) Difficulty in walking, not elsewhere classified (04/12/23) Visit Care Team Role Provider Type Geovani Elder DO Family Provider Non-Staff Primary Care Provider Specialty: Medical Address: [address] [place] [address] [address], [place], [address] Email: Nicolás Schrader MD Attending Provider Physician Referring Provider Specialty: Wound Care Address: [address] [place] [address], [address] Email: [email or web address] Plan Of Care PT-OP-T Assessment and Plan Start: 01/10/23 16:14 Freq: Status: Active Protocol: Document 04/12/23 10:33 [facility] (Rec: 04/12/23 12:00 [facility] [id number]) Physical Therapy Assessment Goals Three Impairment impaired mobility and activity tolerance related to size of her legs Impairment uses FWW and doesn't go out of the house other than for medical appointments Short Term Goal (STG) Patient will be able to ambulate 500 ft with SPC with min assist 04/05/23: goal met STG Duration goal met Dining Services Manager Goal (LTG) Patient will be able to ambulate at least 1000 feet with least restrictive device to allow for return to community mobility 04/18/23: goal progress, patient reports increased ease of lifting LE's, now able to get on and off treatment table on own 75% of time LTG Duration 06/12/23 Two Impairment LYmphedema life impact scale 56% Short Term Goal (STG) Decrease Lymphedema life impact scale to no greater than 40% 04/05/23: goal met STG Duration goal met Dining Services Manager Goal (LTG) Decrease lymphedema life impact scale to no greater than 25% as measure of improved activity tolerance and quality of life 04/13/23: goal progress, not fully achieved LTG Duration 06/12/23 One Impairment Lymphedema stella LE's Short Term Goal (STG) Patient to be instructed in all aspects of lymphedema care to include skin care, MLD, compression, and lymphedema exercises 04/05/23: goal met STG Duration goal met Dining Services Manager Goal (LTG) Patient to be independent in all aspects of lymphedema care , LE circumferential measurements to be stable (no increase or decrease greater than 1 cm over the course of 1 week), and patient to obtain appropriate compression garments for stella LE lymphedema managements and possibly sequential pneumatic pump. 04/12/23: Patient is challenged by wearing adequate compression due to body size and shape and difficulty reaching, as well as financial concerns as she is currently living out of her car. LTG Duration 06/12/23 Assessment Summary Assessment Increased edema knees and thighs due to removal of compression bandaging; applied media job titles today for improved tolerance. Recommending patient obtain new compression alternative garments, ideally full length toe to groin due to history of wounds, variability of edema, difficulty donning compression stockings. REcommend continued PT to address above goals. Physical Therapy Plan Frequency and Duration Frequency of Treatment 2x/Week Duration of treatment (weeks) 8 Plan of Care Start Date 04/12/23 Plan of Care End Date 06/12/23 Therapeutic Interventions Therapeutic Interventions Home Exercise Program, Lymphedema Management,Manual Therapy,Patient/Caregiver Education,Self-Care/Home Management,Therapeutic Activities,Therapeutic Exercises Next Visit Focus/Plan Next Note Type Treatment Note Next Visit Plan Complete paperwork for ordering compression alternatives for patient. Continue lymphedema management . Focus on manual techniques to continue to decrease tissue fibrosis, bandaging. Plan of Care Dates Plan of Care Start Date 04/12/23 Plan of Care End Date 06/12/23 Electronically Signed by: Lizeth Howard, PT 04/18/23 6985 If you are in agreement with this Plan of Care, please return a signed and dated copy. I have reviewed this Plan of Care and certify that the skilled therapy services above are required to meet the patient?s needs. Physician Signature Date Printed Name and Credentials Clinical Instructor Signature Printed Name and Credentials
--- NOTE | 2023-04-19 14:23 | PT.OTN ---
Current Diagnoses Lymphedema, not elsewhere classified (04/19/23) Non-pressure chronic ulcer of other part of left lower leg with fat layer exposed (04/19/23) Soft tissue disorder, unspecified (04/19/23) Difficulty in walking, not elsewhere classified (04/19/23) Physical Therapy Treatment Note PT-OP-A Visit Information Start: 01/10/23 16:14 Freq: Status: Active Protocol: Document 04/19/23 10:28 SAK (Rec: 04/19/23 10:51 [facility] [id number]) Out-Patient Physical Therapy Visit Information Visit Information Visit Type Treatment Note Visit Start Time 10:30 Visit Stop Time 11:55 Total Visit Minutes 85 Visit Number 13 Precautions Precautions endometrial cancer, nonhealing wound left LE PT-OP-B Current Condition Start: 01/10/23 16:14 Freq: Status: Active Protocol: Document 04/19/23 10:28 SAK (Rec: 04/19/23 10:51 [facility] [id number]) Current Condition History of Current Condition Onset Date 22 months Current Complaints stella LE lymphedema History of Current Condition was travelling and knew something was wrong with her left leg, went to ER diagnosed with cellulitis stella LE's, was in hospital 28 days. 3 days before discharge developed lymphedema. Went to [facility] wound care, did not have good experience, no recommendation for PT. Now going to wound care at [facility] and PT was recommended. Using Vaseline due to dryness in legs. Has had multiple infections since that time. Then last year having vaginal bleeding and diagnosed with endometrial cancer. Has had 3 treatments of chemo. Can't have Obgyn surgery until infection in leg healed, possiblty more chemo. Sees oncologist tomorrow Dr. Merrick Hurtado in [place] at [facility]. Prior Treatments and Tests PMH: cellulitis, lymphedema stella LE's, peripheral neuropathy, morbid obesity, hysteroscopy, chronic non- healing ulcer left LE Future Testing and Treatments Planned Preparing for Obgyn surgery for endometrial cancer. PT-OP-C Subjective Start: 01/10/23 16:14 Freq: Status: Active Protocol: Document 04/19/23 10:28 SAK (Rec: 04/19/23 10:51 [facility] [id number]) OP-PT Subjective Patient Comments Patient Comments Has lost 50# in 2 months, able to use cane now instead of walker. Was just discharged from wound care. Got compression tights, hasn't tried on yet PT-OP-G Mobility & Gait Start: 01/10/23 16:14 Freq: Status: Active Protocol: Document 01/11/23 07:56 SAK (Rec: 01/11/23 16:21 [facility] [id number]) OP Mobility Evaluation Bed Mobility Supine to and from Sit mod assist for LE's Transfers Sit to Stand use of FWW with SBA OP Gait Assessment Gait Gait Assistance Required: Independent Distance (Feet) 60 Assistive Devices Assistive Device Front Wheeled Walker Orthotic/Prosthetic Devices or Brace: No Gait Deviations General Gait Pattern Decreased Stride Length, Decreased Feet Clearance, Flexed Trunk,Wide Based Gait Comments Gait Comments limited by weight of legs due to lymphedema PT-OP-J Posture/Palpation/Skin Start: 01/10/23 16:14 Freq: Status: Active Protocol: Document 01/11/23 07:56 SAK (Rec: 01/11/23 16:21 [facility] [id number]) Skin Assessment Other Assessments Skin Assessment Comments hyperkeratosis and elephatiasis stella LE's PT-OP-K Range of Motion Start: 01/10/23 16:14 Freq: Status: Active Protocol: Document 01/11/23 07:56 SAK (Rec: 01/11/23 16:21 [facility] [id number]) Hip Goniometric Range of Motion Hip ROM Limitations Hip ROM Limitations Swelling Comments moderate limitations Knee Goniometric Range of Motion Knee ROM Limitations Knee ROM Limitations Swelling Comments moderate limitations Ankle and Foot Goniometric Range of Motion Ankle and Foot ROM Limitations ROM Limitations Swelling Comments moderate limitations PT-OP-M Strength Start: 01/10/23 16:14 Freq: Status: Active Protocol: Document 01/11/23 07:56 SAK (Rec: 01/11/23 16:21 [facility] [id number]) Hip Strength Hip Manual Muscle Testing stella Comments less than anti-gravity stregnth, requires assistance for legs on and off treatment table. No MMT Knee Strength Knee Manual Muscle Testing stella Comments has anti-gravity strength ext. No MMT Ankle/Foot Strength Ankle and Foot Manual Muscle Testing stella Comments has anti gravity strength. No MMT PT-OP-N Lymphedema Start: 01/10/23 16:14 Freq: Status: Active Protocol: Document 04/19/23 10:28 SAK (Rec: 04/19/23 10:51 [facility] [id number]) Lymphedema Measurements Lower Extremity Circumference Measurements Right Affected MT Heads 26.1 cm Mid-foot 25.4 cm Medial Malleolus 35.8 cm 10 cm From Medial Malleolus 46.8 cm 20 cm From Medial Malleolus 61.3 cm 30 cm From Medial Malleolus 61.8 cm 40 cm From Medial Malleolus 73 cm 50 cm From Medial Malleolus 81.9 cm 60 cm From Medial Malleolus 79 cm Knee Joint 75.9 cm Left Affected MT Heads 25 cm Mid-foot 26.2 cm Medial Malleolus 32.3 cm 10 cm From Medial Malleolus 40.9 cm 20 cm From Medial Malleolus 50.6 cm 30 cm From Medial Malleolus 56.2 cm 40 cm From Medial Malleolus 59.7 cm 50 cm From Medial Malleolus 69.8 cm 60 cm From Medial Malleolus 75.4 cm Knee Joint 69.7 cm - from bottom of foot PT-OP-Q Treatments Start: 01/10/23 16:14 Freq: Status: Active Protocol: Document 04/19/23 10:28 [facility] (Rec: 04/19/23 10:51 [facility] [id number]) Lymphedema Treatment Lymphedema Wrapping Body Location stella LE's MTP to upper thigh Materials Coban system with padding, extra black foam anterior ankle crease, covered by Coban Lite bilateral LEs MTP's to just below knees. Assisted patient in donning compression capris (go all the way to patient ankles). Sequential Lymphedema Exercises Comments TrA, glut sets, LAQ, ankle pumps and circles, toe flex/ ext, deep bfreathing [ End ] Other Other sequential pneumatic pump right LE during MLD left 20 min at 45 mm HG work on fibrotic tissue stella lower legs right greater than left PT-OP-T Assessment and Plan Start: 01/10/23 16:14 Freq: Status: Active Protocol: Document 04/19/23 10:28 [facility] (Rec: 04/19/23 10:51 [facility] [id number]) Physical Therapy Assessment Goals Three Impairment impaired mobility and activity tolerance related to size of her legs Impairment uses FWW and doesn't go out of the house other than for medical appointments Short Term Goal (STG) Patient will be able to ambulate 500 ft with SPC with min assist 04/05/23: goal met STG Duration goal met Care Home Goal (LTG) Patient will be able to ambulate at least 1000 feet with least restrictive device to allow for return to community mobility 04/18/23: goal progress, patient reports increased ease of lifting LE's, now able to get on and off treatment table on own 75% of time LTG Duration 06/12/23 Two Impairment LYmphedema life impact scale 56% Short Term Goal (STG) Decrease Lymphedema life impact scale to no greater than 40% 04/05/23: goal met STG Duration goal met Marine Gear Keeper Goal (LTG) Decrease lymphedema life impact scale to no greater than 25% as measure of improved activity tolerance and quality of life 04/13/23: goal progress, not fully achieved LTG Duration 06/12/23 One Impairment Lymphedema stella LE's Short Term Goal (STG) Patient to be instructed in all aspects of lymphedema care to include skin care, MLD, compression, and lymphedema exercises 04/05/23: goal met STG Duration goal met Care Home Goal (LTG) Patient to be independent in all aspects of lymphedema care , LE circumferential measurements to be stable (no increase or decrease greater than 1 cm over the course of 1 week), and patient to obtain appropriate compression garments for stella LE lymphedema managements and possibly sequential pneumatic pump. 04/12/23: Patient is challenged by wearing adequate compression due to body size and shape and difficulty reaching, as well as financial concerns as she is currently living out of her car. LTG Duration 06/12/23 Assessment Summary Assessment Circumferential measurements continue to improve, patient has lost 50#. Trial use of tights today, encouraged patient to find her old compression alternative garments if possible, have requested new. Due to history of wounds and size of LE's feel compression alternatives required entire leg stella. Physical Therapy Plan Frequency and Duration Frequency of Treatment 2x/Week Duration of treatment (weeks) 8 Plan of Care Start Date 04/12/23 Plan of Care End Date 06/12/23 Therapeutic Interventions Therapeutic Interventions Home Exercise Program, Lymphedema Management,Manual Therapy,Patient/Caregiver Education,Self-Care/Home Management,Therapeutic Activities,Therapeutic Exercises Next Visit Focus/Plan Next Note Type Treatment Note Next Visit Plan Continue lymphedema management . ASsure appropriate compression garments prior to discharge from PT.
--- NOTE | 2023-04-21 14:23 | PT.OTN ---
Current Diagnoses Lymphedema, not elsewhere classified (04/21/23) Non-pressure chronic ulcer of other part of left lower leg with fat layer exposed (04/21/23) Soft tissue disorder, unspecified (04/21/23) Difficulty in walking, not elsewhere classified (04/21/23) Physical Therapy Treatment Note PT-OP-A Visit Information Start: 01/10/23 16:14 Freq: Status: Active Protocol: Document 04/21/23 10:33 SAK (Rec: 04/21/23 11:29 [facility] [id number]) Out-Patient Physical Therapy Visit Information Visit Information Visit Type Treatment Note Visit Start Time 10:30 Visit Stop Time 11:55 Total Visit Minutes 85 Visit Number 13 Precautions Precautions endometrial cancer, nonhealing wound left LE PT-OP-B Current Condition Start: 01/10/23 16:14 Freq: Status: Active Protocol: Document 04/21/23 10:33 SAK (Rec: 04/21/23 11:29 [facility] [id number]) Current Condition History of Current Condition Onset Date 22 months Current Complaints stella LE lymphedema History of Current Condition was travelling and knew something was wrong with her left leg, went to ER diagnosed with cellulitis stella LE's, was in hospital 28 days. 3 days before discharge developed lymphedema. Went to [facility] wound care, did not have good experience, no recommendation for PT. Now going to wound care at [facility] and PT was recommended. Using Vaseline due to dryness in legs. Has had multiple infections since that time. Then last year having vaginal bleeding and diagnosed with endometrial cancer. Has had 3 treatments of chemo. Can't have Obgyn surgery until infection in leg healed, possiblty more chemo. Sees oncologist tomorrow Dr. Merrick Hurtado in [place] at [facility]. Prior Treatments and Tests PMH: cellulitis, lymphedema stella LE's, peripheral neuropathy, morbid obesity, hysteroscopy, chronic non- healing ulcer left LE Future Testing and Treatments Planned Preparing for Obgyn surgery for endometrial cancer. PT-OP-C Subjective Start: 01/10/23 16:14 Freq: Status: Active Protocol: Document 04/21/23 10:33 SAK (Rec: 04/21/23 11:29 [facility]AK [id number]) OP-PT Subjective Patient Comments Patient Comments States CT results were positive for improvement in tumor size. Liked compression tights. PT-OP-G Mobility & Gait Start: 01/10/23 16:14 Freq: Status: Active Protocol: Document 01/11/23 07:56 [facility] (Rec: 01/11/23 16:21 [facility] [id number]) OP Mobility Evaluation Bed Mobility Supine to and from Sit mod assist for LE's Transfers Sit to Stand use of FWW with SBA OP Gait Assessment Gait Gait Assistance Required: Independent Distance (Feet) 60 Assistive Devices Assistive Device Front Wheeled Walker Orthotic/Prosthetic Devices or Brace: No Gait Deviations General Gait Pattern Decreased Stride Length, Decreased Feet Clearance, Flexed Trunk,Wide Based Gait Comments Gait Comments limited by weight of legs due to lymphedema PT-OP-J Posture/Palpation/Skin Start: 01/10/23 16:14 Freq: Status: Active Protocol: Document 01/11/23 07:56 [facility] (Rec: 01/11/23 16:21 [facility] [id number]) Skin Assessment Other Assessments Skin Assessment Comments hyperkeratosis and elephatiasis stella LE's PT-OP-K Range of Motion Start: 01/10/23 16:14 Freq: Status: Active Protocol: Document 01/11/23 07:56 [facility] (Rec: 01/11/23 16:21 [facility] [id number]) Hip Goniometric Range of Motion Hip ROM Limitations Hip ROM Limitations Swelling Comments moderate limitations Knee Goniometric Range of Motion Knee ROM Limitations Knee ROM Limitations Swelling Comments moderate limitations Ankle and Foot Goniometric Range of Motion Ankle and Foot ROM Limitations ROM Limitations Swelling Comments moderate limitations PT-OP-M Strength Start: 01/10/23 16:14 Freq: Status: Active Protocol: Document 01/11/23 07:56 [facility] (Rec: 01/11/23 16:21 [facility] [id number]) Hip Strength Hip Manual Muscle Testing stella Comments less than anti-gravity stregnth, requires assistance for legs on and off treatment table. No MMT Knee Strength Knee Manual Muscle Testing stelal Comments has anti-gravity strength ext. No MMT Ankle/Foot Strength Ankle and Foot Manual Muscle Testing stella Comments has anti gravity strength. No MMT PT-OP-N Lymphedema Start: 01/10/23 16:14 Freq: Status: Active Protocol: Document 04/21/23 10:33 [facility] (Rec: 04/21/23 11:29 [facility] [id number]) Lymphedema Measurements Lower Extremity Circumference Measurements Right Affected MT Heads 26.4 cm Mid-foot 25.3 cm Medial Malleolus 33 cm 10 cm From Medial Malleolus 41.5 cm 20 cm From Medial Malleolus 54.5 cm 30 cm From Medial Malleolus 61.2 cm 40 cm From Medial Malleolus 65.8 cm 50 cm From Medial Malleolus 75.3 cm 60 cm From Medial Malleolus 77 cm 70 cm From Medial Malleolus 84 cm Knee Joint 73.5 cm Left Affected MT Heads 25 cm Mid-foot 25.5 cm Medial Malleolus 31.7 cm 10 cm From Medial Malleolus 38 cm 20 cm From Medial Malleolus 48.3 cm 30 cm From Medial Malleolus 54.7 cm 40 cm From Medial Malleolus 59.7 cm 50 cm From Medial Malleolus 70.3 cm 60 cm From Medial Malleolus 75.2 cm 70 cm From Medial Malleolus 84.6 cm Knee Joint 61.5 cm PT-OP-Q Treatments Start: 01/10/23 16:14 Freq: Status: Active Protocol: Document 04/19/23 10:28 [facility] (Rec: 04/19/23 10:51 [facility] [id number]) Lymphedema Treatment Lymphedema Wrapping Body Location stella LE's MTP to upper thigh Materials Coban system with padding, extra black foam anterior ankle crease, covered by Coban Lite bilateral LEs MTP's to just below knees. Assisted patient in donning compression capris (go all the way to patient ankles). Sequential Lymphedema Exercises Comments TrA, glut sets, LAQ, ankle pumps and circles, toe flex/ ext, deep bfreathing [ End ] Other Other sequential pneumatic pump right LE during MLD left 20 min at 45 mm HG work on fibrotic tissue stella lower legs right greater than left PT-OP-T Assessment and Plan Start: 01/10/23 16:14 Freq: Status: Active Protocol: Document 04/21/23 10:33 [facility] (Rec: 04/21/23 11:29 [facility] [id number]) Physical Therapy Assessment Goals Three Impairment impaired mobility and activity tolerance related to size of her legs Impairment uses FWW and doesn't go out of the house other than for medical appointments Short Term Goal (STG) Patient will be able to ambulate 500 ft with SPC with min assist 04/05/23: goal met STG Duration goal met [facility] Goal (LTG) Patient will be able to ambulate at least 1000 feet with least restrictive device to allow for return to community mobility 04/18/23: goal progress, patient reports increased ease of lifting LE's, now able to get on and off treatment table on own 75% of time LTG Duration 06/12/23 Two Impairment LYmphedema life impact scale 56% Short Term Goal (STG) Decrease Lymphedema life impact scale to no greater than 40% 04/05/23: goal met STG Duration goal met Timber Framer Helper Goal (LTG) Decrease lymphedema life impact scale to no greater than 25% as measure of improved activity tolerance and quality of life 04/13/23: goal progress, not fully achieved LTG Duration 06/12/23 One Impairment Lymphedema stella LE's Short Term Goal (STG) Patient to be instructed in all aspects of lymphedema care to include skin care, MLD, compression, and lymphedema exercises 04/05/23: goal met STG Duration goal met [facility] Goal (LTG) Patient to be independent in all aspects of lymphedema care , LE circumferential measurements to be stable (no increase or decrease greater than 1 cm over the course of 1 week), and patient to obtain appropriate compression garments for stella LE lymphedema managements and possibly sequential pneumatic pump. 04/12/23: Patient is challenged by wearing adequate compression due to body size and shape and difficulty reaching, as well as financial concerns as she is currently living out of her car. LTG Duration 06/12/23 Assessment Summary Assessment Good improvement in circumferential measurements stella LE's, compression tights appear to be beneficial, need to be layered over any compression bandaging for ability to remove clothing. Patient continues to note improvement in ability to move including walking and knee ROM. Continues to mostly use cane now, states surprised doctor's and nurses. Able to wear pants for the first time in a long time; wearing to PT today over compression tights. Physical Therapy Plan Frequency and Duration Frequency of Treatment 2x/Week Duration of treatment (weeks) 8 Plan of Care Start Date 04/12/23 Plan of Care End Date 06/12/23 Therapeutic Interventions Therapeutic Interventions Home Exercise Program, Lymphedema Management,Manual Therapy,Patient/Caregiver Education,Self-Care/Home Management,Therapeutic Activities,Therapeutic Exercises Next Visit Focus/Plan Next Note Type Treatment Note Next Visit Plan Continue lymphedema management . ASsure appropriate compression garments prior to discharge from PT. Await approval for compression alternatives. Further discussion of options for foot compression
--- NOTE | 2023-04-21 14:27 | PT.OTN ---
Current Diagnoses Lymphedema, not elsewhere classified (04/21/23) Non-pressure chronic ulcer of other part of left lower leg with fat layer exposed (04/21/23) Soft tissue disorder, unspecified (04/21/23) Difficulty in walking, not elsewhere classified (04/21/23) Physical Therapy Treatment Note PT-OP-A Visit Information Start: 01/10/23 16:14 Freq: Status: Active Protocol: Document 04/21/23 10:33 SAK (Rec: 04/21/23 11:29 [facility] [id number]) Out-Patient Physical Therapy Visit Information Visit Information Visit Type Treatment Note Visit Start Time 10:30 Visit Stop Time 11:55 Total Visit Minutes 85 Visit Number 13 Precautions Precautions endometrial cancer, nonhealing wound left LE PT-OP-B Current Condition Start: 01/10/23 16:14 Freq: Status: Active Protocol: Document 04/21/23 10:33 SAK (Rec: 04/21/23 11:29 [facility] [id number]) Current Condition History of Current Condition Onset Date 22 months Current Complaints stella LE lymphedema History of Current Condition was travelling and knew something was wrong with her left leg, went to ER diagnosed with cellulitis stella LE's, was in hospital 28 days. 3 days before discharge developed lymphedema. Went to [facility] wound care, did not have good experience, no recommendation for PT. Now going to wound care at [facility] and PT was recommended. Using Vaseline due to dryness in legs. Has had multiple infections since that time. Then last year having vaginal bleeding and diagnosed with endometrial cancer. Has had 3 treatments of chemo. Can't have Obgyn surgery until infection in leg healed, possiblty more chemo. Sees oncologist tomorrow Dr. Merrick Hurtado in [place] at [facility]. Prior Treatments and Tests PMH: cellulitis, lymphedema stella LE's, peripheral neuropathy, morbid obesity, hysteroscopy, chronic non- healing ulcer left LE Future Testing and Treatments Planned Preparing for Obgyn surgery for endometrial cancer. PT-OP-C Subjective Start: 01/10/23 16:14 Freq: Status: Active Protocol: Document 04/21/23 10:33 SAK (Rec: 04/21/23 11:29 [facility] [id number]) OP-PT Subjective Patient Comments Patient Comments States CT results were positive for improvement in tumor size. Liked compression tights. PT-OP-G Mobility & Gait Start: 01/10/23 16:14 Freq: Status: Active Protocol: Document 01/11/23 07:56 [facility] (Rec: 01/11/23 16:21 [facility] [id number]) OP Mobility Evaluation Bed Mobility Supine to and from Sit mod assist for LE's Transfers Sit to Stand use of FWW with SBA OP Gait Assessment Gait Gait Assistance Required: Independent Distance (Feet) 60 Assistive Devices Assistive Device Front Wheeled Walker Orthotic/Prosthetic Devices or Brace: No Gait Deviations General Gait Pattern Decreased Stride Length, Decreased Feet Clearance, Flexed Trunk,Wide Based Gait Comments Gait Comments limited by weight of legs due to lymphedema PT-OP-J Posture/Palpation/Skin Start: 01/10/23 16:14 Freq: Status: Active Protocol: Document 01/11/23 07:56 [facility] (Rec: 01/11/23 16:21 [facility] [id number]) Skin Assessment Other Assessments Skin Assessment Comments hyperkeratosis and elephatiasis stella LE's PT-OP-K Range of Motion Start: 01/10/23 16:14 Freq: Status: Active Protocol: Document 01/11/23 07:56 [facility] (Rec: 01/11/23 16:21 [facility] [id number]) Hip Goniometric Range of Motion Hip ROM Limitations Hip ROM Limitations Swelling Comments moderate limitations Knee Goniometric Range of Motion Knee ROM Limitations Knee ROM Limitations Swelling Comments moderate limitations Ankle and Foot Goniometric Range of Motion Ankle and Foot ROM Limitations ROM Limitations Swelling Comments moderate limitations PT-OP-M Strength Start: 01/10/23 16:14 Freq: Status: Active Protocol: Document 01/11/23 07:56 [facility] (Rec: 01/11/23 16:21 [facility] [id number]) Hip Strength Hip Manual Muscle Testing stella Comments less than anti-gravity stregnth, requires assistance for legs on and off treatment table. No MMT Knee Strength Knee Manual Muscle Testing stella Comments has anti-gravity strength ext. No MMT Ankle/Foot Strength Ankle and Foot Manual Muscle Testing stella Comments has anti gravity strength. No MMT PT-OP-N Lymphedema Start: 01/10/23 16:14 Freq: Status: Active Protocol: Document 04/21/23 10:33 [facility] (Rec: 04/21/23 11:29 [facility] [id number]) Lymphedema Measurements Lower Extremity Circumference Measurements Right Affected MT Heads 26.4 cm Mid-foot 25.3 cm Medial Malleolus 33 cm 10 cm From Medial Malleolus 41.5 cm 20 cm From Medial Malleolus 54.5 cm 30 cm From Medial Malleolus 61.2 cm 40 cm From Medial Malleolus 65.8 cm 50 cm From Medial Malleolus 75.3 cm 60 cm From Medial Malleolus 77 cm 70 cm From Medial Malleolus 84 cm Knee Joint 73.5 cm Left Affected MT Heads 25 cm Mid-foot 25.5 cm Medial Malleolus 31.7 cm 10 cm From Medial Malleolus 38 cm 20 cm From Medial Malleolus 48.3 cm 30 cm From Medial Malleolus 54.7 cm 40 cm From Medial Malleolus 59.7 cm 50 cm From Medial Malleolus 70.3 cm 60 cm From Medial Malleolus 75.2 cm 70 cm From Medial Malleolus 84.6 cm Knee Joint 61.5 cm PT-OP-Q Treatments Start: 01/10/23 16:14 Freq: Status: Active Protocol: Document 04/21/23 10:33 [facility] (Rec: 04/21/23 14:27 [facility] [id number]) Lymphedema Treatment Manual Lymphatic Drainage Location for stella LE's, Duration 30 Comments focus on AIA pathways Lymphedema Wrapping Body Location stella LE's MTP to upper thigh Materials Coban system with padding, extra black foam anterior ankle crease, covered by Coban Lite bilateral LEs MTP's to just below knees. Assisted patient in donning compression capris (go all the way to patient ankles). Other tights on top of Coban Sequential Lymphedema Exercises Comments TrA, glut sets, LAQ, ankle pumps and circles, toe flex/ ext, deep bfreathing [ End ] Other Other sequential pneumatic pump right LE during MLD left 20 min at 45 mm HG work on fibrotic tissue stella lower legs right greater than left PT-OP-T Assessment and Plan Start: 01/10/23 16:14 Freq: Status: Active Protocol: Document 04/21/23 10:33 [facility] (Rec: 04/21/23 11:29 [facility] [id number]) Physical Therapy Assessment Goals Three Impairment impaired mobility and activity tolerance related to size of her legs Impairment uses FWW and doesn't go out of the house other than for medical appointments Short Term Goal (STG) Patient will be able to ambulate 500 ft with SPC with min assist 04/05/23: goal met STG Duration goal met [facility] Goal (LTG) Patient will be able to ambulate at least 1000 feet with least restrictive device to allow for return to community mobility 04/18/23: goal progress, patient reports increased ease of lifting LE's, now able to get on and off treatment table on own 75% of time LTG Duration 06/12/23 Two Impairment LYmphedema life impact scale 56% Short Term Goal (STG) Decrease Lymphedema life impact scale to no greater than 40% 04/05/23: goal met STG Duration goal met [facility] Goal (LTG) Decrease lymphedema life impact scale to no greater than 25% as measure of improved activity tolerance and quality of life 04/13/23: goal progress, not fully achieved LTG Duration 06/12/23 One Impairment Lymphedema stella LE's Short Term Goal (STG) Patient to be instructed in all aspects of lymphedema care to include skin care, MLD, compression, and lymphedema exercises 04/05/23: goal met STG Duration goal met Foster Care Case Manager Goal (LTG) Patient to be independent in all aspects of lymphedema care , LE circumferential measurements to be stable (no increase or decrease greater than 1 cm over the course of 1 week), and patient to obtain appropriate compression garments for stella LE lymphedema managements and possibly sequential pneumatic pump. 04/12/23: Patient is challenged by wearing adequate compression due to body size and shape and difficulty reaching, as well as financial concerns as she is currently living out of her car. LTG Duration 06/12/23 Assessment Summary Assessment Good improvement in circumferential measurements stella LE's, compression tights appear to be beneficial, need to be layered over any compression bandaging for ability to remove clothing. Patient continues to note improvement in ability to move including walking and knee ROM. Continues to mostly use cane now, states surprised doctor's and nurses. Able to wear pants for the first time in a long time; wearing to PT today over compression tights. Physical Therapy Plan Frequency and Duration Frequency of Treatment 2x/Week Duration of treatment (weeks) 8 Plan of Care Start Date 04/12/23 Plan of Care End Date 06/12/23 Therapeutic Interventions Therapeutic Interventions Home Exercise Program, Lymphedema Management,Manual Therapy,Patient/Caregiver Education,Self-Care/Home Management,Therapeutic Activities,Therapeutic Exercises Next Visit Focus/Plan Next Note Type Treatment Note Next Visit Plan Continue lymphedema management . ASsure appropriate compression garments prior to discharge from PT. Await approval for compression alternatives. Further discussion of options for foot compression
--- NOTE | 2023-04-26 14:19 | PT.OTN ---
Current Diagnoses Lymphedema, not elsewhere classified (04/26/23) Non-pressure chronic ulcer of other part of left lower leg with fat layer exposed (04/26/23) Soft tissue disorder, unspecified (04/26/23) Difficulty in walking, not elsewhere classified (04/26/23) Physical Therapy Treatment Note PT-OP-A Visit Information Start: 01/10/23 16:14 Freq: Status: Active Protocol: Document 04/26/23 10:31 SAK (Rec: 04/26/23 11:03 [facility] [id number]) Out-Patient Physical Therapy Visit Information Visit Information Visit Type Treatment Note Visit Start Time 10:30 Visit Stop Time 11:55 Total Visit Minutes 85 Visit Number 14 Precautions Precautions endometrial cancer, nonhealing wound left LE PT-OP-B Current Condition Start: 01/10/23 16:14 Freq: Status: Active Protocol: Document 04/26/23 10:31 SAK (Rec: 04/26/23 11:03 [facility] [id number]) Current Condition History of Current Condition Onset Date 22 months Current Complaints stella LE lymphedema History of Current Condition was travelling and knew something was wrong with her left leg, went to ER diagnosed with cellulitis stella LE's, was in hospital 28 days. 3 days before discharge developed lymphedema. Went to [facility] wound care, did not have good experience, no recommendation for PT. Now going to wound care at [facility] and PT was recommended. Using Vaseline due to dryness in legs. Has had multiple infections since that time. Then last year having vaginal bleeding and diagnosed with endometrial cancer. Has had 3 treatments of chemo. Can't have Obgyn surgery until infection in leg healed, possiblty more chemo. Sees oncologist tomorrow Dr. Merrick Hurtado in [place] at [facility]. Prior Treatments and Tests PMH: cellulitis, lymphedema stella LE's, peripheral neuropathy, morbid obesity, hysteroscopy, chronic non- healing ulcer left LE Future Testing and Treatments Planned Preparing for Obgyn surgery for endometrial cancer. PT-OP-C Subjective Start: 01/10/23 16:14 Freq: Status: Active Protocol: Document 04/26/23 10:31 SAK (Rec: 04/26/23 11:03 SAK [id number]) OP-PT Subjective Patient Comments Patient Comments Has been wearing compression consistently, likes the Bioflect tights. Had to launder last night, still wet this am PT-OP-G Mobility & Gait Start: 01/10/23 16:14 Freq: Status: Active Protocol: Document 01/11/23 07:56 [facility] (Rec: 01/11/23 16:21 [facility] [id number]) OP Mobility Evaluation Bed Mobility Supine to and from Sit mod assist for LE's Transfers Sit to Stand use of FWW with SBA OP Gait Assessment Gait Gait Assistance Required: Independent Distance (Feet) 60 Assistive Devices Assistive Device Front Wheeled Walker Orthotic/Prosthetic Devices or Brace: No Gait Deviations General Gait Pattern Decreased Stride Length, Decreased Feet Clearance, Flexed Trunk,Wide Based Gait Comments Gait Comments limited by weight of legs due to lymphedema PT-OP-J Posture/Palpation/Skin Start: 01/10/23 16:14 Freq: Status: Active Protocol: Document 01/11/23 07:56 [facility] (Rec: 01/11/23 16:21 [facility] [id number]) Skin Assessment Other Assessments Skin Assessment Comments hyperkeratosis and elephatiasis stella LE's PT-OP-K Range of Motion Start: 01/10/23 16:14 Freq: Status: Active Protocol: Document 01/11/23 07:56 [facility] (Rec: 01/11/23 16:21 [facility] [id number]) Hip Goniometric Range of Motion Hip ROM Limitations Hip ROM Limitations Swelling Comments moderate limitations Knee Goniometric Range of Motion Knee ROM Limitations Knee ROM Limitations Swelling Comments moderate limitations Ankle and Foot Goniometric Range of Motion Ankle and Foot ROM Limitations ROM Limitations Swelling Comments moderate limitations PT-OP-M Strength Start: 01/10/23 16:14 Freq: Status: Active Protocol: Document 01/11/23 07:56 [facility] (Rec: 01/11/23 16:21 [facility] [id number]) Hip Strength Hip Manual Muscle Testing stella Comments less than anti-gravity stregnth, requires assistance for legs on and off treatment table. No MMT Knee Strength Knee Manual Muscle Testing stella Comments has anti-gravity strength ext. No MMT Ankle/Foot Strength Ankle and Foot Manual Muscle Testing stella Comments has anti gravity strength. No MMT PT-OP-N Lymphedema Start: 01/10/23 16:14 Freq: Status: Active Protocol: Document 04/26/23 10:31 [facility] (Rec: 04/26/23 11:03 [facility] [id number]) Lymphedema Measurements Lower Extremity Circumference Measurements Right Affected MT Heads 25.6 cm Mid-foot 25.3 cm Medial Malleolus 32 cm 10 cm From Medial Malleolus 36 cm 20 cm From Medial Malleolus 52 cm 30 cm From Medial Malleolus 59.8 cm 40 cm From Medial Malleolus 69.3 cm 50 cm From Medial Malleolus 74.2 cm 60 cm From Medial Malleolus 73.2 cm 70 cm From Medial Malleolus 82.1 cm Knee Joint 69.5 cm - measured from bottom of foot Left Affected MT Heads 25 cm Mid-foot 25.5 cm Medial Malleolus 32.3 cm 10 cm From Medial Malleolus 37 cm 20 cm From Medial Malleolus 49 cm 30 cm From Medial Malleolus 54.7 cm 40 cm From Medial Malleolus 60.6 cm 50 cm From Medial Malleolus 71.6 cm 60 cm From Medial Malleolus 74.6 cm 70 cm From Medial Malleolus 80.9 cm Knee Joint 60.3 cm - from bottom of foot PT-OP-Q Treatments Start: 01/10/23 16:14 Freq: Status: Active Protocol: Document 04/26/23 10:31 [facility] (Rec: 04/26/23 11:03 [facility] [id number]) Lymphedema Treatment Manual Lymphatic Drainage Location for stella LE's, Duration 30 Comments focus on AIA pathways Lymphedema Wrapping Body Location stella LE's MTP to upper thigh Materials Coban system with padding, extra black foam anterior ankle crease, covered by Coban Lite bilateral LEs MTP's to just below knees. Assisted patient in donning compression capris (go all the way to patient ankles). Other tights on top of Coban Sequential Lymphedema Exercises Comments TrA, glut sets, LAQ, ankle pumps and circles, toe flex/ ext, deep bfreathing [ End ] Other Other sequential pneumatic pump right LE during MLD left 20 min at 45 mm HG work on fibrotic tissue stella lower legs right greater than left PT-OP-T Assessment and Plan Start: 01/10/23 16:14 Freq: Status: Active Protocol: Document 04/26/23 10:31 [facility] (Rec: 04/26/23 11:03 [facility] [id number]) Physical Therapy Assessment Goals Three Impairment impaired mobility and activity tolerance related to size of her legs Impairment uses FWW and doesn't go out of the house other than for medical appointments Short Term Goal (STG) Patient will be able to ambulate 500 ft with SPC with min assist 04/05/23: goal met STG Duration goal met Skilled Nursing Goal (LTG) Patient will be able to ambulate at least 1000 feet with least restrictive device to allow for return to community mobility 04/18/23: goal progress, patient reports increased ease of lifting LE's, now able to get on and off treatment table on own 75% of time LTG Duration 06/12/23 Two Impairment LYmphedema life impact scale 56% Short Term Goal (STG) Decrease Lymphedema life impact scale to no greater than 40% 04/05/23: goal met STG Duration goal met Termite Inspector Goal (LTG) Decrease lymphedema life impact scale to no greater than 25% as measure of improved activity tolerance and quality of life 04/13/23: goal progress, not fully achieved LTG Duration 06/12/23 One Impairment Lymphedema stella LE's Short Term Goal (STG) Patient to be instructed in all aspects of lymphedema care to include skin care, MLD, compression, and lymphedema exercises 04/05/23: goal met STG Duration goal met Termite Inspector Goal (LTG) Patient to be independent in all aspects of lymphedema care , LE circumferential measurements to be stable (no increase or decrease greater than 1 cm over the course of 1 week), and patient to obtain appropriate compression garments for stella LE lymphedema managements and possibly sequential pneumatic pump. 04/12/23: Patient is challenged by wearing adequate compression due to body size and shape and difficulty reaching, as well as financial concerns as she is currently living out of her car. LTG Duration 06/12/23 Assessment Summary Assessment Noted further improvement in circumferential measurements right greater than left. Patient to order second pair of Bioflect compression capris when financially able, PT in consult with [employer] regarding compression alternatives. Physical Therapy Plan Frequency and Duration Frequency of Treatment 2x/Week Duration of treatment (weeks) 8 Plan of Care Start Date 04/12/23 Plan of Care End Date 06/12/23 Therapeutic Interventions Therapeutic Interventions Home Exercise Program, Lymphedema Management,Manual Therapy,Patient/Caregiver Education,Self-Care/Home Management,Therapeutic Activities,Therapeutic Exercises Next Visit Focus/Plan Next Note Type Treatment Note Next Visit Plan Continue lymphedema management . ASsure appropriate compression garments prior to discharge from PT. Await approval for compression alternatives. Further discussion of options for foot compression
--- NOTE | 2023-05-03 11:40 | PT.OTN ---
Current Diagnoses Lymphedema, not elsewhere classified (05/03/23) Non-pressure chronic ulcer of other part of left lower leg with fat layer exposed (05/03/23) Soft tissue disorder, unspecified (05/03/23) Difficulty in walking, not elsewhere classified (05/03/23) Physical Therapy Treatment Note PT-OP-A Visit Information Start: 01/10/23 16:14 Freq: Status: Active Protocol: Document 05/03/23 09:44 SAK (Rec: 05/03/23 10:27 [facility] [id number]) Out-Patient Physical Therapy Visit Information Visit Information Visit Type Treatment Note Visit Start Time 09:40 Visit Stop Time 11:05 Total Visit Minutes 85 Visit Number 15 Precautions Precautions endometrial cancer, nonhealing wound left LE PT-OP-B Current Condition Start: 01/10/23 16:14 Freq: Status: Active Protocol: Document 05/03/23 09:44 SAK (Rec: 05/03/23 10:27 [facility] [id number]) Current Condition History of Current Condition Onset Date 22 months Current Complaints stella LE lymphedema History of Current Condition was travelling and knew something was wrong with her left leg, went to ER diagnosed with cellulitis stella LE's, was in hospital 28 days. 3 days before discharge developed lymphedema. Went to [facility] wound care, did not have good experience, no recommendation for PT. Now going to wound care at [facility] and PT was recommended. Using Vaseline due to dryness in legs. Has had multiple infections since that time. Then last year having vaginal bleeding and diagnosed with endometrial cancer. Has had 3 treatments of chemo. Can't have Obgyn surgery until infection in leg healed, possiblty more chemo. Sees oncologist tomorrow Dr. Merrick Hurtado in [place] at [facility]. Prior Treatments and Tests PMH: cellulitis, lymphedema stella LE's, peripheral neuropathy, morbid obesity, hysteroscopy, chronic non- healing ulcer left LE Future Testing and Treatments Planned Preparing for Obgyn surgery for endometrial cancer. PT-OP-C Subjective Start: 01/10/23 16:14 Freq: Status: Active Protocol: Document 05/03/23 09:44 SAK (Rec: 05/03/23 10:27 [facility] [id number]) OP-PT Subjective Patient Comments Patient Comments Discharged from wound care today. Decreased to size G Tubigrip. Has appointment with surgeon this . Pleased she is able to walk further. Recovering from a cold PT-OP-G Mobility & Gait Start: 01/10/23 16:14 Freq: Status: Active Protocol: Document 01/11/23 07:56 [facility] (Rec: 01/11/23 16:21 [facility] [id number]) OP Mobility Evaluation Bed Mobility Supine to and from Sit mod assist for LE's Transfers Sit to Stand use of FWW with SBA OP Gait Assessment Gait Gait Assistance Required: Independent Distance (Feet) 60 Assistive Devices Assistive Device Front Wheeled Walker Orthotic/Prosthetic Devices or Brace: No Gait Deviations General Gait Pattern Decreased Stride Length, Decreased Feet Clearance, Flexed Trunk,Wide Based Gait Comments Gait Comments limited by weight of legs due to lymphedema PT-OP-J Posture/Palpation/Skin Start: 01/10/23 16:14 Freq: Status: Active Protocol: Document 01/11/23 07:56 [facility] (Rec: 01/11/23 16:21 [facility] [id number]) Skin Assessment Other Assessments Skin Assessment Comments hyperkeratosis and elephatiasis stella LE's PT-OP-K Range of Motion Start: 01/10/23 16:14 Freq: Status: Active Protocol: Document 01/11/23 07:56 [facility] (Rec: 01/11/23 16:21 [facility] [id number]) Hip Goniometric Range of Motion Hip ROM Limitations Hip ROM Limitations Swelling Comments moderate limitations Knee Goniometric Range of Motion Knee ROM Limitations Knee ROM Limitations Swelling Comments moderate limitations Ankle and Foot Goniometric Range of Motion Ankle and Foot ROM Limitations ROM Limitations Swelling Comments moderate limitations PT-OP-M Strength Start: 01/10/23 16:14 Freq: Status: Active Protocol: Document 01/11/23 07:56 [facility] (Rec: 01/11/23 16:21 [facility] [id number]) Hip Strength Hip Manual Muscle Testing stella Comments less than anti-gravity stregnth, requires assistance for legs on and off treatment table. No MMT Knee Strength Knee Manual Muscle Testing stella Comments has anti-gravity strength ext. No MMT Ankle/Foot Strength Ankle and Foot Manual Muscle Testing stella Comments has anti gravity strength. No MMT PT-OP-N Lymphedema Start: 01/10/23 16:14 Freq: Status: Active Protocol: Document 05/03/23 09:44 SAK (Rec: 05/03/23 10:27 [facility] [id number]) Lymphedema Measurements Lower Extremity Circumference Measurements Right Affected MT Heads 25.7 cm Mid-foot 25 cm Medial Malleolus 32.7 cm 10 cm From Medial Malleolus 39.8 cm 20 cm From Medial Malleolus 50.5 cm 30 cm From Medial Malleolus 56.8 cm 40 cm From Medial Malleolus 68.8 cm 50 cm From Medial Malleolus 75 cm 60 cm From Medial Malleolus 72.3 cm 70 cm From Medial Malleolus 79.9 cm Knee Joint 70.9 cm Left Affected MT Heads 25.4 cm Mid-foot 25.7 cm Medial Malleolus 32.7 cm 10 cm From Medial Malleolus 37.5 cm 20 cm From Medial Malleolus 48.8 cm 30 cm From Medial Malleolus 54.7 cm 40 cm From Medial Malleolus 58.7 cm 50 cm From Medial Malleolus 70.5 cm 60 cm From Medial Malleolus 75.2 cm 70 cm From Medial Malleolus 80 cm Knee Joint 60 cm - from bottom of foot PT-OP-Q Treatments Start: 01/10/23 16:14 Freq: Status: Active Protocol: Document 05/03/23 09:44 [facility] (Rec: 05/03/23 10:27 [facility] [id number]) Cardio Equipment Recumbent Stepper (Sci-Fit) Duration (Minutes) 5 Resistance 1 Seat Position 11 Lymphedema Treatment Manual Lymphatic Drainage Location for stella LE's, Duration 30 Comments focus on AIA pathways Lymphedema Wrapping Body Location stella LE's MTP to upper thigh Materials Coban system with padding, extra black foam anterior ankle crease, covered by Coban Lite bilateral LEs MTP's to just below knees. Assisted patient in donning compression capris (go all the way to patient ankles). Other tights on top of Coban Sequential Lymphedema Exercises Comments TrA, glut sets, LAQ, ankle pumps and circles, toe flex/ ext, deep bfreathing [ End ] Patient Education Other may want to consider compression shorts in same fabric as tights for easier donning, feel they would likely cover knees but be easier to don and still provide good compression upper legs. Other Other sequential pneumatic pump right LE during MLD left 20 min at 45 mm HG work on fibrotic tissue stella lower legs right greater than left PT-OP-T Assessment and Plan Start: 01/10/23 16:14 Freq: Status: Active Protocol: Document 05/03/23 09:44 [facility] (Rec: 05/03/23 10:27 [facility] [id number]) Physical Therapy Assessment Goals Three Impairment impaired mobility and activity tolerance related to size of her legs Impairment uses FWW and doesn't go out of the house other than for medical appointments Short Term Goal (STG) Patient will be able to ambulate 500 ft with SPC with min assist 04/05/23: goal met STG Duration goal met Retirement Goal (LTG) Patient will be able to ambulate at least 1000 feet with least restrictive device to allow for return to community mobility 04/18/23: goal progress, patient reports increased ease of lifting LE's, now able to get on and off treatment table on own 75% of time LTG Duration 06/12/23 Two Impairment LYmphedema life impact scale 56% Short Term Goal (STG) Decrease Lymphedema life impact scale to no greater than 40% 04/05/23: goal met STG Duration goal met Retirement Goal (LTG) Decrease lymphedema life impact scale to no greater than 25% as measure of improved activity tolerance and quality of life 04/13/23: goal progress, not fully achieved LTG Duration 06/12/23 One Impairment Lymphedema stella LE's Short Term Goal (STG) Patient to be instructed in all aspects of lymphedema care to include skin care, MLD, compression, and lymphedema exercises 04/05/23: goal met STG Duration goal met Matrix Supervisor Goal (LTG) Patient to be independent in all aspects of lymphedema care , LE circumferential measurements to be stable (no increase or decrease greater than 1 cm over the course of 1 week), and patient to obtain appropriate compression garments for stella LE lymphedema managements and possibly sequential pneumatic pump. 04/12/23: Patient is challenged by wearing adequate compression due to body size and shape and difficulty reaching, as well as financial concerns as she is currently living out of her car. LTG Duration 06/12/23 Assessment Summary Assessment Further circumferential measurement decreases on large percentage of measurements, see above. Continues to respond well to lymphedema treatment. Tissue in stella lower legs more pliable, still with some thickened areas of dry brown skin, extra time with lotion application. Physical Therapy Plan Frequency and Duration Frequency of Treatment 2x/Week Duration of treatment (weeks) Plan of Care Start Date 04/12/23 Plan of Care End Date 06/12/23 Therapeutic Interventions Therapeutic Interventions Home Exercise Program, Lymphedema Management,Manual Therapy,Patient/Caregiver Education,Self-Care/Home Management,Therapeutic Activities,Therapeutic Exercises Next Visit Focus/Plan Next Note Type Treatment Note Next Visit Plan Continue lymphedema management . ASsure appropriate compression garments prior to discharge from PT. Await approval for compression alternatives.
--- NOTE | 2023-05-10 16:25 | PT.OTN ---
Current Diagnoses Lymphedema, not elsewhere classified (05/10/23) Non-pressure chronic ulcer of other part of left lower leg with fat layer exposed (05/10/23) Soft tissue disorder, unspecified (05/10/23) Difficulty in walking, not elsewhere classified (05/10/23) Physical Therapy Treatment Note PT-OP-A Visit Information Start: 01/10/23 16:14 Freq: Status: Active Protocol: Document 05/10/23 10:23 [facility] (Rec: 05/10/23 11:29 [facility] [id number]) Out-Patient Physical Therapy Visit Information Visit Information Visit Type Treatment Note Visit Start Time 10:26 Visit Stop Time 11:05 Total Visit Minutes 85 Visit Number 16 Precautions Precautions endometrial cancer, nonhealing wound left LE PT-OP-B Current Condition Start: 01/10/23 16:14 Freq: Status: Active Protocol: Document 05/10/23 10:23 SAK (Rec: 05/10/23 11:29 [facility] [id number]) Current Condition History of Current Condition Onset Date 22 months Current Complaints stella LE lymphedema History of Current Condition was travelling and knew something was wrong with her left leg, went to ER diagnosed with cellulitis stella LE's, was in hospital 28 days. 3 days before discharge developed lymphedema. Went to [facility] wound care, did not have good experience, no recommendation for PT. Now going to wound care at [facility] and PT was recommended. Using Vaseline due to dryness in legs. Has had multiple infections since that time. Then last year having vaginal bleeding and diagnosed with endometrial cancer. Has had 3 treatments of chemo. Can't have Obgyn surgery until infection in leg healed, possiblty more chemo. Sees oncologist tomorrow Dr. Merrick Hurtado in [place] at [facility]. Prior Treatments and Tests PMH: cellulitis, lymphedema stella LE's, peripheral neuropathy, morbid obesity, hysteroscopy, chronic non- healing ulcer left LE Future Testing and Treatments Planned Preparing for Obgyn surgery for endometrial cancer. PT-OP-C Subjective Start: 01/10/23 16:14 Freq: Status: Active Protocol: Document 05/10/23 10:23 SAK (Rec: 05/10/23 11:29 [facility] [id number]) OP-PT Subjective Patient Comments Patient Comments Having surgery June 08; complete hysterectomy. Currently has a yeast infection. New compression bandaging felt too uncomfortable this time; thinks legs more swollen; no compression left since last night, right leg no compression since Tuesday except Tubigrip. 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 PT-OP-G Mobility & Gait Start: 01/10/23 16:14 Freq: Status: Active Protocol: Document 01/11/23 07:56 [facility] (Rec: 01/11/23 16:21 [facility] [id number]) OP Mobility Evaluation Bed Mobility Supine to and from Sit mod assist for LE's Transfers Sit to Stand use of FWW with SBA OP Gait Assessment Gait Gait Assistance Required: Independent Distance (Feet) 60 Assistive Devices Assistive Device Front Wheeled Walker Orthotic/Prosthetic Devices or Brace: No Gait Deviations General Gait Pattern Decreased Stride Length, Decreased Feet Clearance, Flexed Trunk,Wide Based Gait Comments Gait Comments limited by weight of legs due to lymphedema PT-OP-J Posture/Palpation/Skin Start: 01/10/23 16:14 Freq: Status: Active Protocol: Document 01/11/23 07:56 [facility] (Rec: 01/11/23 16:21 [facility] [id number]) Skin Assessment Other Assessments Skin Assessment Comments hyperkeratosis and elephatiasis stella LE's PT-OP-K Range of Motion Start: 01/10/23 16:14 Freq: Status: Active Protocol: Document 01/11/23 07:56 [facility] (Rec: 01/11/23 16:21 [facility] [id number]) Hip Goniometric Range of Motion Hip ROM Limitations Hip ROM Limitations Swelling Comments moderate limitations Knee Goniometric Range of Motion Knee ROM Limitations Knee ROM Limitations Swelling Comments moderate limitations Ankle and Foot Goniometric Range of Motion Ankle and Foot ROM Limitations ROM Limitations Swelling Comments moderate limitations PT-OP-M Strength Start: 01/10/23 16:14 Freq: Status: Active Protocol: Document 01/11/23 07:56 [facility] (Rec: 01/11/23 16:21 [facility] [id number]) Hip Strength Hip Manual Muscle Testing stella Comments less than anti-gravity stregnth, requires assistance for legs on and off treatment table. No MMT Knee Strength Knee Manual Muscle Testing stella Comments has anti-gravity strength ext. No MMT Ankle/Foot Strength Ankle and Foot Manual Muscle Testing stella Comments has anti gravity strength. No MMT PT-OP-N Lymphedema Start: 01/10/23 16:14 Freq: Status: Active Protocol: Document 05/10/23 10:23 [facility] (Rec: 05/10/23 11:29 [facility] [id number]) Lymphedema Measurements Lower Extremity Circumference Measurements Right Affected MT Heads 26.8 cm Mid-foot 26.8 cm Medial Malleolus 38.8 cm 10 cm From Medial Malleolus 49.3 cm 20 cm From Medial Malleolus 60 cm 30 cm From Medial Malleolus 68 cm 40 cm From Medial Malleolus 75.2 cm 50 cm From Medial Malleolus 75.7 cm 60 cm From Medial Malleolus 74.4 cm 70 cm From Medial Malleolus 81 cm Knee Joint 74 cm Left Affected MT Heads 26.2 cm Mid-foot 27 cm Medial Malleolus 34.3 cm 10 cm From Medial Malleolus 43.2 cm 20 cm From Medial Malleolus 51.2 cm 30 cm From Medial Malleolus 59.8 cm 40 cm From Medial Malleolus 62.1 cm 50 cm From Medial Malleolus 73 cm 60 cm From Medial Malleolus 78.5 cm 70 cm From Medial Malleolus 80.8 cm Knee Joint 62.2 cm - from bottom of foot PT-OP-Q Treatments Start: 01/10/23 16:14 Freq: Status: Active Protocol: Document 05/10/23 10:23 [facility] (Rec: 05/10/23 11:29 [facility] [id number]) Cardio Equipment Recumbent Stepper (Sci-Fit) Duration (Minutes) 5 Resistance 1 Seat Position 11 Lymphedema Treatment Manual Lymphatic Drainage Location for stella LE's, Duration 30 Comments focus on AIA pathways Lymphedema Wrapping Body Location stella LE's toes to knees Materials Coban system with padding, extra black foam anterior ankle crease, covered by Coban Lite bilateral LEs MTP's to just below knees. Other no compression tights due to yeast infection Sequential Lymphedema Exercises Comments TrA, glut sets, LAQ, ankle pumps and circles, toe flex/ ext, deep bfreathing [ End ] Other Other sequential pneumatic pump right LE during MLD left 20 min at 45 mm HG work on fibrotic tissue stella lower legs right greater than left PT-OP-T Assessment and Plan Start: 01/10/23 16:14 Freq: Status: Active Protocol: Document 05/10/23 10:23 [facility] (Rec: 05/10/23 11:29 [facility] [id number]) Physical Therapy Assessment Goals Three Impairment impaired mobility and activity tolerance related to size of her legs Impairment uses FWW and doesn't go out of the house other than for medical appointments Short Term Goal (STG) Patient will be able to ambulate 500 ft with SPC with min assist 04/05/23: goal met STG Duration goal met Detention Goal (LTG) Patient will be able to ambulate at least 1000 feet with least restrictive device to allow for return to community mobility 04/18/23: goal progress, patient reports increased ease of lifting LE's, now able to get on and off treatment table on own 75% of time LTG Duration 06/12/23 Two Impairment LYmphedema life impact scale 56% Short Term Goal (STG) Decrease Lymphedema life impact scale to no greater than 40% 04/05/23: goal met STG Duration goal met Professional Fee Coder Goal (LTG) Decrease lymphedema life impact scale to no greater than 25% as measure of improved activity tolerance and quality of life 04/13/23: goal progress, not fully achieved LTG Duration 06/12/23 One Impairment Lymphedema stella LE's Short Term Goal (STG) Patient to be instructed in all aspects of lymphedema care to include skin care, MLD, compression, and lymphedema exercises 04/05/23: goal met STG Duration goal met Professional Fee Coder Goal (LTG) Patient to be independent in all aspects of lymphedema care , LE circumferential measurements to be stable (no increase or decrease greater than 1 cm over the course of 1 week), and patient to obtain appropriate compression garments for stella LE lymphedema managements and possibly sequential pneumatic pump. 04/12/23: Patient is challenged by wearing adequate compression due to body size and shape and difficulty reaching, as well as financial concerns as she is currently living out of her car. LTG Duration 06/12/23 Assessment Summary Assessment Patient with increase in circumferential measurements due to not wearing compression due to discomfort; had to remove. Scratched under compression proximal outer calf with skin tears present; wound care nurse consulted and cleaned and applied foam dressing. Patient tearful over increase in swelling and open sore as can't have surgery if has open wound. Physical Therapy Plan Frequency and Duration Frequency of Treatment 2x/Week Duration of treatment (weeks) 8 Plan of Care Start Date 04/12/23 Plan of Care End Date 06/12/23 Therapeutic Interventions Therapeutic Interventions Home Exercise Program, Lymphedema Management,Manual Therapy,Patient/Caregiver Education,Self-Care/Home Management,Therapeutic Activities,Therapeutic Exercises Next Visit Focus/Plan Next Note Type Treatment Note Next Visit Plan Continue lymphedema management . ASsure appropriate compression garments prior to discharge from PT. Await approval for compression alternatives.
--- NOTE | 2023-05-16 16:49 | PT.OTN ---
Current Diagnoses Lymphedema, not elsewhere classified (05/16/23) Non-pressure chronic ulcer of other part of left lower leg with fat layer exposed (05/16/23) Soft tissue disorder, unspecified (05/16/23) Difficulty in walking, not elsewhere classified (05/16/23) Physical Therapy Treatment Note PT-OP-A Visit Information Start: 01/10/23 16:14 Freq: Status: Active Protocol: Document 05/16/23 14:54 [facility] (Rec: 05/16/23 15:32 [facility] [id number]) Out-Patient Physical Therapy Visit Information Visit Information Visit Type Treatment Note Visit Start Time 15:00 Visit Stop Time 04:25 Total Visit Minutes 85 Visit Number 18 Precautions Precautions endometrial cancer, nonhealing wound left LE PT-OP-B Current Condition Start: 01/10/23 16:14 Freq: Status: Active Protocol: Document 05/16/23 14:54 [facility] (Rec: 05/16/23 15:32 [facility] [id number]) Current Condition History of Current Condition Onset Date 22 months Current Complaints setlla LE lymphedema History of Current Condition was travelling and knew something was wrong with her left leg, went to ER diagnosed with cellulitis stella LE's, was in hospital 28 days. 3 days before discharge developed lymphedema. Went to [facility] wound care, did not have good experience, no recommendation for PT. Now going to wound care at [facility] and PT was recommended. Using Vaseline due to dryness in legs. Has had multiple infections since that time. Then last year having vaginal bleeding and diagnosed with endometrial cancer. Has had 3 treatments of chemo. Can't have Obgyn surgery until infection in leg healed, possiblty more chemo. Sees oncologist tomorrow Dr. Merrick Hurtado in [place] at [facility]. Prior Treatments and Tests PMH: cellulitis, lymphedema stella LE's, peripheral neuropathy, morbid obesity, hysteroscopy, chronic non- healing ulcer left LE Future Testing and Treatments Planned Preparing for Obgyn surgery for endometrial cancer. PT-OP-C Subjective Start: 01/10/23 16:14 Freq: Status: Active Protocol: Document 05/16/23 14:54 [facility] (Rec: 05/16/23 15:32 [facility] [id number]) OP-PT Subjective Patient Comments Patient Comments No new c/o. Was able to wear compression tights some, didn' t wear yesterday due to being too hot. FEels yeast infection healing, less moist, no problems with the bandages . Patient found XXL long compression alternative, fits right LE. Encouraged patient to order for left. Should have insurance coverage in 2023 PT-OP-G Mobility & Gait Start: 01/10/23 16:14 Freq: Status: Active Protocol: Document 01/11/23 07:56 [facility] (Rec: 01/11/23 16:21 [facility] [id number]) OP Mobility Evaluation Bed Mobility Supine to and from Sit mod assist for LE's Transfers Sit to Stand use of FWW with SBA OP Gait Assessment Gait Gait Assistance Required: Independent Distance (Feet) 60 Assistive Devices Assistive Device Front Wheeled Walker Orthotic/Prosthetic Devices or Brace: No Gait Deviations General Gait Pattern Decreased Stride Length, Decreased Feet Clearance, Flexed Trunk,Wide Based Gait Comments Gait Comments limited by weight of legs due to lymphedema PT-OP-J Posture/Palpation/Skin Start: 01/10/23 16:14 Freq: Status: Active Protocol: Document 01/11/23 07:56 [facility] (Rec: 01/11/23 16:21 [facility] [id number]) Skin Assessment Other Assessments Skin Assessment Comments hyperkeratosis and elephatiasis stella LE's PT-OP-K Range of Motion Start: 01/10/23 16:14 Freq: Status: Active Protocol: Document 01/11/23 07:56 [facility] (Rec: 01/11/23 16:21 [facility] [id number]) Hip Goniometric Range of Motion Hip ROM Limitations Hip ROM Limitations Swelling Comments moderate limitations Knee Goniometric Range of Motion Knee ROM Limitations Knee ROM Limitations Swelling Comments moderate limitations Ankle and Foot Goniometric Range of Motion Ankle and Foot ROM Limitations ROM Limitations Swelling Comments moderate limitations PT-OP-M Strength Start: 01/10/23 16:14 Freq: Status: Active Protocol: Document 01/11/23 07:56 [facility] (Rec: 01/11/23 16:21 [facility] [id number]) Hip Strength Hip Manual Muscle Testing stella Comments less than anti-gravity stregnth, requires assistance for legs on and off treatment table. No MMT Knee Strength Knee Manual Muscle Testing stella Comments has anti-gravity strength ext. No MMT Ankle/Foot Strength Ankle and Foot Manual Muscle Testing stella Comments has anti gravity strength. No MMT PT-OP-N Lymphedema Start: 01/10/23 16:14 Freq: Status: Active Protocol: Document 05/16/23 14:54 [facility] (Rec: 05/16/23 15:32 [facility] [id number]) Lymphedema Measurements Lower Extremity Circumference Measurements Right Affected MT Heads 25.6 cm Mid-foot 25.3 cm Medial Malleolus 33.1 cm 10 cm From Medial Malleolus 41.3 cm 20 cm From Medial Malleolus 58.8 cm 30 cm From Medial Malleolus 62.5 cm 40 cm From Medial Malleolus 69.3 cm 50 cm From Medial Malleolus 76.2 cm 60 cm From Medial Malleolus 75.3 cm 70 cm From Medial Malleolus 79.9 cm Knee Joint 76.2 cm Left Affected MT Heads 26.6 cm Mid-foot 25.6 cm Medial Malleolus 32.7 cm 10 cm From Medial Malleolus 41.1 cm 20 cm From Medial Malleolus 49.2 cm 30 cm From Medial Malleolus 56.6 cm 40 cm From Medial Malleolus 64 cm 50 cm From Medial Malleolus 73.6 cm 60 cm From Medial Malleolus 77.9 cm 70 cm From Medial Malleolus 81.5 cm Knee Joint 65.5 cm PT-OP-Q Treatments Start: 01/10/23 16:14 Freq: Status: Active Protocol: Document 05/16/23 14:54 [facility] (Rec: 05/16/23 15:32 [facility] [id number]) Cardio Equipment Recumbent Stepper (Sci-Fit) Duration (Minutes) 5 Resistance 1 Seat Position 11 Lymphedema Treatment Manual Lymphatic Drainage Location for stella LE's, Duration 30 Comments focus on AIA pathways Lymphedema Wrapping Body Location stella LE's toes to knees Materials Coban system with padding, extra black foam anterior ankle crease, covered by Coban Lite bilateral LEs MTP's to just below knees. Other no compression tights due to yeast infection Sequential Lymphedema Exercises Comments TrA, glut sets, LAQ, ankle pumps and circles, toe flex/ ext, deep bfreathing [ End ] Other Other sequential pneumatic pump right LE during MLD left 30 min at 45 mm HG work on fibrotic tissue stella lower legs right greater than left Wear compression capris for a few hours today, don't wear overnight and don't wear when wet (all contributed to yeast infection) PT-OP-T Assessment and Plan Start: 01/10/23 16:14 Freq: Status: Active Protocol: Document 05/16/23 14:54 [facility] (Rec: 05/16/23 15:32 [facility] [id number]) Physical Therapy Assessment Goals Three Impairment impaired mobility and activity tolerance related to size of her legs Impairment uses FWW and doesn't go out of the house other than for medical appointments Short Term Goal (STG) Patient will be able to ambulate 500 ft with SPC with min assist 04/05/23: goal met STG Duration goal met Longterm Goal (LTG) Patient will be able to ambulate at least 1000 feet with least restrictive device to allow for return to community mobility 04/18/23: goal progress, patient reports increased ease of lifting LE's, now able to get on and off treatment table on own 75% of time LTG Duration 06/12/23 Two Impairment LYmphedema life impact scale 56% Short Term Goal (STG) Decrease Lymphedema life impact scale to no greater than 40% 04/05/23: goal met STG Duration goal met Chief Internal Auditor Goal (LTG) Decrease lymphedema life impact scale to no greater than 25% as measure of improved activity tolerance and quality of life 04/13/23: goal progress, not fully achieved LTG Duration 06/12/23 One Impairment Lymphedema stella LE's Short Term Goal (STG) Patient to be instructed in all aspects of lymphedema care to include skin care, MLD, compression, and lymphedema exercises 04/05/23: goal met STG Duration goal met Longterm Goal (LTG) Patient to be independent in all aspects of lymphedema care , LE circumferential measurements to be stable (no increase or decrease greater than 1 cm over the course of 1 week), and patient to obtain appropriate compression garments for stella LE lymphedema managements and possibly sequential pneumatic pump. 04/12/23: Patient is challenged by wearing adequate compression due to body size and shape and difficulty reaching, as well as financial concerns as she is currently living out of her car. LTG Duration 06/12/23 Assessment Summary Assessment Noted decrease in circumferential measurements. Yeast infection and skin tears right proximal calf healing well, covered today with Bacitracin and bandaids. Patient educated in application of compression alternative right LE, she continues to look for prior garment she had for left, plans to order a new one. Physical Therapy Plan Frequency and Duration Frequency of Treatment 2x/Week Duration of treatment (weeks) 8 Plan of Care Start Date 04/12/23 Plan of Care End Date 06/12/23 Therapeutic Interventions Therapeutic Interventions Home Exercise Program, Lymphedema Management,Manual Therapy,Patient/Caregiver Education,Self-Care/Home Management,Therapeutic Activities,Therapeutic Exercises Next Visit Focus/Plan Next Note Type Treatment Note Next Visit Plan Continue lymphedema management , continue patient education for donning compression alternative
--- NOTE | 2023-05-18 14:09 | PT.OTN ---
Current Diagnoses Lymphedema, not elsewhere classified (05/18/23) Non-pressure chronic ulcer of other part of left lower leg with fat layer exposed (05/18/23) Soft tissue disorder, unspecified (05/18/23) Difficulty in walking, not elsewhere classified (05/18/23) Physical Therapy Treatment Note PT-OP-A Visit Information Start: 01/10/23 16:14 Freq: Status: Active Protocol: Document 05/18/23 12:37 SAK (Rec: 05/18/23 12:47 [facility] [id number]) Out-Patient Physical Therapy Visit Information Visit Information Visit Type Treatment Note Visit Start Time 15:00 Visit Stop Time 04:25 Total Visit Minutes 85 Visit Number 19 Precautions Precautions endometrial cancer, nonhealing wound left LE PT-OP-B Current Condition Start: 01/10/23 16:14 Freq: Status: Active Protocol: Document 05/18/23 12:37 SAK (Rec: 05/18/23 12:47 [facility] [id number]) Current Condition History of Current Condition Onset Date 22 months Current Complaints stella LE lymphedema History of Current Condition was travelling and knew something was wrong with her left leg, went to ER diagnosed with cellulitis stella LE's, was in hospital 28 days. 3 days before discharge developed lymphedema. Went to [facility] wound care, did not have good experience, no recommendation for PT. Now going to wound care at [facility] and PT was recommended. Using Vaseline due to dryness in legs. Has had multiple infections since that time. Then last year having vaginal bleeding and diagnosed with endometrial cancer. Has had 3 treatments of chemo. Can't have Obgyn surgery until infection in leg healed, possiblty more chemo. Sees oncologist tomorrow Dr. Merrick Hurtado in [place] at [facility]. Prior Treatments and Tests PMH: cellulitis, lymphedema stella LE's, peripheral neuropathy, morbid obesity, hysteroscopy, chronic non- healing ulcer left LE Future Testing and Treatments Planned Preparing for Obgyn surgery for endometrial cancer. Current Functional Impairments (Reported) Functional Limitations- Mobility/Gait uses FWW, PT adjusted today due to back much lower than front; patient reported can stand up better now. PT-OP-C Subjective Start: 01/10/23 16:14 Freq: Status: Active Protocol: Document 05/18/23 12:37 SAK (Rec: 05/18/23 12:47 [facility] [id number]) OP-PT Subjective Patient Comments Patient Comments No new c/o PT-OP-G Mobility & Gait Start: 01/10/23 16:14 Freq: Status: Active Protocol: Document 01/11/23 07:56 [facility] (Rec: 01/11/23 16:21 [facility] [id number]) OP Mobility Evaluation Bed Mobility Supine to and from Sit mod assist for LE's Transfers Sit to Stand use of FWW with SBA OP Gait Assessment Gait Gait Assistance Required: Independent Distance (Feet) 60 Assistive Devices Assistive Device Front Wheeled Walker Orthotic/Prosthetic Devices or Brace: No Gait Deviations General Gait Pattern Decreased Stride Length, Decreased Feet Clearance, Flexed Trunk,Wide Based Gait Comments Gait Comments limited by weight of legs due to lymphedema PT-OP-J Posture/Palpation/Skin Start: 01/10/23 16:14 Freq: Status: Active Protocol: Document 01/11/23 07:56 [facility] (Rec: 01/11/23 16:21 [facility] [id number]) Skin Assessment Other Assessments Skin Assessment Comments hyperkeratosis and elephatiasis stella LE's PT-OP-K Range of Motion Start: 01/10/23 16:14 Freq: Status: Active Protocol: Document 01/11/23 07:56 [facility] (Rec: 01/11/23 16:21 [facility] [id number]) Hip Goniometric Range of Motion Hip ROM Limitations Hip ROM Limitations Swelling Comments moderate limitations Knee Goniometric Range of Motion Knee ROM Limitations Knee ROM Limitations Swelling Comments moderate limitations Ankle and Foot Goniometric Range of Motion Ankle and Foot ROM Limitations ROM Limitations Swelling Comments moderate limitations PT-OP-M Strength Start: 01/10/23 16:14 Freq: Status: Active Protocol: Document 01/11/23 07:56 [facility] (Rec: 01/11/23 16:21 [facility] [id number]) Hip Strength Hip Manual Muscle Testing stella Comments less than anti-gravity stregnth, requires assistance for legs on and off treatment table. No MMT Knee Strength Knee Manual Muscle Testing stella Comments has anti-gravity strength ext. No MMT Ankle/Foot Strength Ankle and Foot Manual Muscle Testing stella Comments has anti gravity strength. No MMT PT-OP-N Lymphedema Start: 01/10/23 16:14 Freq: Status: Active Protocol: Document 05/18/23 12:37 [facility] (Rec: 05/18/23 13:01 [facility] [id number]) Lymphedema Measurements Lower Extremity Circumference Measurements Left Affected MT Heads 25.7 cm Mid-foot 25.7 cm Medial Malleolus 33.2 cm 10 cm From Medial Malleolus 40.4 cm 20 cm From Medial Malleolus 54.9 cm 30 cm From Medial Malleolus 59.3 cm 40 cm From Medial Malleolus 65.7 cm 50 cm From Medial Malleolus 77.5 cm 60 cm From Medial Malleolus 80.3 cm 70 cm From Medial Malleolus 81 cm Knee Joint 67.8 cm PT-OP-Q Treatments Start: 01/10/23 16:14 Freq: Status: Active Protocol: Document 05/18/23 12:37 [facility] (Rec: 05/18/23 12:47 [facility] [id number]) Cardio Equipment Recumbent Stepper (Sci-Fit) Duration (Minutes) 8 Resistance 1 Seat Position 11 Therapeutic Activity Therapeutic Activity donning compression tights Reps/Minutes 9 Comments assisting patient, more difficult with recent exacerbation of swelling due to yeast infection, inability to wear compression tights. Mod assist. Patient to remove at bedtime, use donning aid to don daytime only. Lymphedema Treatment Manual Lymphatic Drainage Location for stella LE's, Duration 30 Comments focus on AIA pathways Lymphedema Wrapping Body Location stella LE's toes to knees Materials Coban system with padding, extra black foam anterior ankle crease, covered by Coban Lite bilateral LEs MTP's to just below knees. Other assisted patient in donning Bioflect compression tights Sequential Lymphedema Exercises Comments TrA, glut sets, LAQ, ankle pumps and circles, toe flex/ ext, deep breathing [ End ] Patient Education Compression Garments wear tights only during the day Other Other sequential pneumatic pump right LE during MLD left 30 min at 45 mm HG work on fibrotic tissue stella lower legs right greater than left Wear compression capris for a few hours today, don't wear overnight and don't wear when wet (all contributed to yeast infection) PT-OP-T Assessment and Plan Start: 01/10/23 16:14 Freq: Status: Active Protocol: Document 05/18/23 12:37 [facility] (Rec: 05/18/23 12:47 [facility] [id number]) Physical Therapy Assessment Goals Three Impairment impaired mobility and activity tolerance related to size of her legs Impairment uses FWW and doesn't go out of the house other than for medical appointments Short Term Goal (STG) Patient will be able to ambulate 500 ft with SPC with min assist 04/05/23: goal met STG Duration goal met Roving Can Tender Goal (LTG) Patient will be able to ambulate at least 1000 feet with least restrictive device to allow for return to community mobility 04/18/23: goal progress, patient reports increased ease of lifting LE's, now able to get on and off treatment table on own 75% of time LTG Duration 06/12/23 Two Impairment LYmphedema life impact scale 56% Short Term Goal (STG) Decrease Lymphedema life impact scale to no greater than 40% 04/05/23: goal met STG Duration goal met Retirement Goal (LTG) Decrease lymphedema life impact scale to no greater than 25% as measure of improved activity tolerance and quality of life 04/13/23: goal progress, not fully achieved LTG Duration 06/12/23 One Impairment Lymphedema stella LE's Short Term Goal (STG) Patient to be instructed in all aspects of lymphedema care to include skin care, MLD, compression, and lymphedema exercises 04/05/23: goal met STG Duration goal met Roving Can Tender Goal (LTG) Patient to be independent in all aspects of lymphedema care , LE circumferential measurements to be stable (no increase or decrease greater than 1 cm over the course of 1 week), and patient to obtain appropriate compression garments for stella LE lymphedema managements and possibly sequential pneumatic pump. 04/12/23: Patient is challenged by wearing adequate compression due to body size and shape and difficulty reaching, as well as financial concerns as she is currently living out of her car. LTG Duration 06/12/23 Progress Towards Goals Progress Towards Goals Progressing Toward Goals Assessment Summary Assessment decreased circumferential measurements distally, increased proximally due to not wearing compression tights . Assisted patient in donning tights, instructed remove at night. Don for 1/2 day tomorrow as yeast infection continues to heal, increase wear time as tolerated. Physical Therapy Plan Frequency and Duration Frequency of Treatment 2x/Week Duration of treatment (weeks) 8 Plan of Care Start Date 04/12/23 Plan of Care End Date 06/12/23 Therapeutic Interventions Therapeutic Interventions Home Exercise Program, Lymphedema Management,Manual Therapy,Patient/Caregiver Education,Self-Care/Home Management,Therapeutic Activities,Therapeutic Exercises Next Visit Focus/Plan Next Note Type Treatment Note Next Visit Plan Continue lymphedema management , continue patient education for donning compression alternative
--- NOTE | 2023-05-24 07:53 | PT.OPPN ---
Current Diagnoses Lymphedema, not elsewhere classified (05/26/23) Non-pressure chronic ulcer of other part of left lower leg with fat layer exposed (05/26/23) Soft tissue disorder, unspecified (05/26/23) Difficulty in walking, not elsewhere classified (05/26/23) Physical Therapy Progress Note PT-OP-A Visit Information Start: 01/10/23 16:14 Freq: Status: Active Protocol: Document 05/24/23 15:10 [facility] (Rec: 05/24/23 16:59 [facility] [id number]) Out-Patient Physical Therapy Visit Information Visit Information Visit Type Treatment Note Visit Note States doctor told her her cancer markers are increasing, doesn't feel immunotherapy doing well and that she may have become resistant to it, likely need to try different drug, not sure surgeon will want to do surgery. Visit Start Time 15:00 Visit Stop Time 04:30 Total Visit Minutes 90 Visit Number 20 Precautions Precautions endometrial cancer, nonhealing wound left LE PT-OP-B Current Condition Start: 01/10/23 16:14 Freq: Status: Active Protocol: Document 05/24/23 15:10 SAK (Rec: 05/24/23 16:59 [facility] [id number]) Current Condition History of Current Condition Onset Date 22 months Current Complaints stella LE lymphedema History of Current Condition was travelling and knew something was wrong with her left leg, went to ER diagnosed with cellulitis stella LE's, was in hospital 28 days. 3 days before discharge developed lymphedema. Went to [facility] wound care, did not have good experience, no recommendation for PT. Now going to wound care at [facility] and PT was recommended. Using Vaseline due to dryness in legs. Has had multiple infections since that time. Then last year having vaginal bleeding and diagnosed with endometrial cancer. Has had 3 treatments of chemo. Can't have Obgyn surgery until infection in leg healed, possiblty more chemo. Sees oncologist tomorrow Dr. Merrick Hurtado in [place] at [facility]. Prior Treatments and Tests PMH: cellulitis, lymphedema stella LE's, peripheral neuropathy, morbid obesity, hysteroscopy, chronic non- healing ulcer left LE Future Testing and Treatments Planned Preparing for Obgyn surgery for endometrial cancer. PT-OP-C Subjective Start: 01/10/23 16:14 Freq: Status: Active Protocol: Document 05/18/23 12:37 [facility] (Rec: 05/18/23 12:47 [facility] [id number]) OP-PT Subjective Patient Comments Patient Comments No new c/o PT-OP-G Mobility & Gait Start: 01/10/23 16:14 Freq: Status: Active Protocol: Document 01/11/23 07:56 [facility] (Rec: 01/11/23 16:21 [facility] [id number]) OP Mobility Evaluation Bed Mobility Supine to and from Sit mod assist for LE's Transfers Sit to Stand use of FWW with SBA OP Gait Assessment Gait Gait Assistance Required: Independent Distance (Feet) 60 Assistive Devices Assistive Device Front Wheeled Walker Orthotic/Prosthetic Devices or Brace: No Gait Deviations General Gait Pattern Decreased Stride Length, Decreased Feet Clearance, Flexed Trunk,Wide Based Gait Comments Gait Comments limited by weight of legs due to lymphedema PT-OP-J Posture/Palpation/Skin Start: 01/10/23 16:14 Freq: Status: Active Protocol: Document 01/11/23 07:56 [facility] (Rec: 01/11/23 16:21 [facility] [id number]) Skin Assessment Other Assessments Skin Assessment Comments hyperkeratosis and elephatiasis stella LE's PT-OP-K Range of Motion Start: 01/10/23 16:14 Freq: Status: Active Protocol: Document 01/11/23 07:56 [facility] (Rec: 01/11/23 16:21 [facility] [id number]) Hip Goniometric Range of Motion Hip ROM Limitations Hip ROM Limitations Swelling Comments moderate limitations Knee Goniometric Range of Motion Knee ROM Limitations Knee ROM Limitations Swelling Comments moderate limitations Ankle and Foot Goniometric Range of Motion Ankle and Foot ROM Limitations ROM Limitations Swelling Comments moderate limitations PT-OP-M Strength Start: 01/10/23 16:14 Freq: Status: Active Protocol: Document 01/11/23 07:56 [facility] (Rec: 01/11/23 16:21 [facility] [id number]) Hip Strength Hip Manual Muscle Testing stella Comments less than anti-gravity stregnth, requires assistance for legs on and off treatment table. No MMT Knee Strength Knee Manual Muscle Testing stella Comments has anti-gravity strength ext. No MMT Ankle/Foot Strength Ankle and Foot Manual Muscle Testing stella Comments has anti gravity strength. No MMT PT-OP-N Lymphedema Start: 01/10/23 16:14 Freq: Status: Active Protocol: Document 05/24/23 15:10 [facility] (Rec: 05/24/23 16:59 [facility] [id number]) Lymphedema Measurements Lower Extremity Circumference Measurements Right Affected MT Heads 25.6 cm Mid-foot 25.3 cm Medial Malleolus 33.2 cm 10 cm From Medial Malleolus 40.5 cm 20 cm From Medial Malleolus 60 cm 30 cm From Medial Malleolus 64 cm 40 cm From Medial Malleolus 80 cm 50 cm From Medial Malleolus 80.2 cm 60 cm From Medial Malleolus 77.3 cm 70 cm From Medial Malleolus 76.5 cm Knee Joint 80.2 cm Left Affected MT Heads 25.7 cm Mid-foot 25.5 cm Medial Malleolus 33.3 cm 10 cm From Medial Malleolus 40.9 cm 20 cm From Medial Malleolus 54.8 cm 30 cm From Medial Malleolus 58.3 cm 40 cm From Medial Malleolus 66.7 cm 50 cm From Medial Malleolus 73.5 cm 60 cm From Medial Malleolus 78.3 cm 70 cm From Medial Malleolus 79.5 cm Knee Joint 67.8 cm PT-OP-T Assessment and Plan Start: 01/10/23 16:14 Freq: Status: Active Protocol: Document 05/24/23 15:10 [facility] (Rec: 05/24/23 16:59 [facility] [id number]) Physical Therapy Assessment Goals Three Impairment impaired mobility and activity tolerance related to size of her legs Impairment uses FWW and doesn't go out of the house other than for medical appointments Short Term Goal (STG) Patient will be able to ambulate 500 ft with SPC with min assist 04/05/23: goal met STG Duration goal met Staff Midwife Goal (LTG) Patient will be able to ambulate at least 1000 feet with least restrictive device to allow for return to community mobility 04/18/23: goal progress, patient reports increased ease of lifting LE's, now able to get on and off treatment table on own 75% of time LTG Duration 06/12/23 Two Impairment LYmphedema life impact scale 56% Short Term Goal (STG) Decrease Lymphedema life impact scale to no greater than 40% 04/05/23: goal met STG Duration goal met Custodial Goal (LTG) Decrease lymphedema life impact scale to no greater than 25% as measure of improved activity tolerance and quality of life 04/13/23: goal progress, not fully achieved LTG Duration 06/12/23 One Impairment Lymphedema stella LE's Short Term Goal (STG) Patient to be instructed in all aspects of lymphedema care to include skin care, MLD, compression, and lymphedema exercises 04/05/23: goal met STG Duration goal met Staff Midwife Goal (LTG) Patient to be independent in all aspects of lymphedema care , LE circumferential measurements to be stable (no increase or decrease greater than 1 cm over the course of 1 week), and patient to obtain appropriate compression garments for stella LE lymphedema managements and possibly sequential pneumatic pump. 04/12/23: Patient is challenged by wearing adequate compression due to body size and shape and difficulty reaching, as well as financial concerns as she is currently living out of her car. LTG Duration 06/12/23 Progress Towards Goals Progress Towards Goals Slow Progress due to Medical Issues Assessment Summary Assessment right LE circumferential measurements increased significantly today especially at knee region, cause uncertain. Reduced with MLD. Left mostly stable today. Patient not doing well emotionally today due to bad news from oncologist about her response to the immunotherapy and concern over surgeon not being willing to perform her surgery. Her lymphedema is easily exacerbated likely due to her medical issues affecting her lymphatic system as well as patient homelessness making compliance with all aspects of lymphedema care challenging. Physical Therapy Plan Frequency and Duration Frequency of Treatment 2x/Week Duration of treatment (weeks) 8 Plan of Care Start Date 04/12/23 Plan of Care End Date 06/12/23 Therapeutic Interventions Therapeutic Interventions Home Exercise Program, Lymphedema Management,Manual Therapy,Patient/Caregiver Education,Self-Care/Home Management,Therapeutic Activities,Therapeutic Exercises Next Visit Focus/Plan Next Note Type Treatment Note Next Visit Plan Lymphedema management emphasis on MLD with soft tissue mobilization to fibrotic tissue. Patient to order compression alternatives. Will evaluate fit and effectiveness when receives.
--- NOTE | 2023-05-24 16:59 | PT.OTN ---
Current Diagnoses Lymphedema, not elsewhere classified (05/24/23) Non-pressure chronic ulcer of other part of left lower leg with fat layer exposed (05/24/23) Soft tissue disorder, unspecified (05/24/23) Difficulty in walking, not elsewhere classified (05/24/23) Physical Therapy Treatment Note PT-OP-A Visit Information Start: 01/10/23 16:14 Freq: Status: Active Protocol: Document 05/24/23 15:10 [facility] (Rec: 05/24/23 16:59 [facility] [id number]) Out-Patient Physical Therapy Visit Information Visit Information Visit Type Treatment Note Visit Note States doctor told her her cancer markers are increasing, doesn't feel immunotherapy doing well and that she may have become resistant to it, likely need to try different drug, not sure surgeon will want to do surgery. Visit Start Time 15:00 Visit Stop Time 04:30 Total Visit Minutes 90 Visit Number 20 Precautions Precautions endometrial cancer, nonhealing wound left LE PT-OP-B Current Condition Start: 01/10/23 16:14 Freq: Status: Active Protocol: Document 05/24/23 15:10 [facility] (Rec: 05/24/23 16:59 [facility] [id number]) Current Condition History of Current Condition Onset Date 22 months Current Complaints stella LE lymphedema History of Current Condition was travelling and knew something was wrong with her left leg, went to ER diagnosed with cellulitis stella LE's, was in hospital 28 days. 3 days before discharge developed lymphedema. Went to [facility] wound care, did not have good experience, no recommendation for PT. Now going to wound care at [facility] and PT was recommended. Using Vaseline due to dryness in legs. Has had multiple infections since that time. Then last year having vaginal bleeding and diagnosed with endometrial cancer. Has had 3 treatments of chemo. Can't have Obgyn surgery until infection in leg healed, possiblty more chemo. Sees oncologist tomorrow Dr. Merrick Hurtado in [place] at [facility]. Prior Treatments and Tests PMH: cellulitis, lymphedema stella LE's, peripheral neuropathy, morbid obesity, hysteroscopy, chronic non- healing ulcer left LE Future Testing and Treatments Planned Preparing for Obgyn surgery for endometrial cancer. PT-OP-C Subjective Start: 01/10/23 16:14 Freq: Status: Active Protocol: Document 05/18/23 12:37 [facility] (Rec: 05/18/23 12:47 [facility] [id number]) OP-PT Subjective Patient Comments Patient Comments No new c/o PT-OP-G Mobility & Gait Start: 01/10/23 16:14 Freq: Status: Active Protocol: Document 01/11/23 07:56 [facility] (Rec: 01/11/23 16:21 [facility] [id number]) OP Mobility Evaluation Bed Mobility Supine to and from Sit mod assist for LE's Transfers Sit to Stand use of FWW with SBA OP Gait Assessment Gait Gait Assistance Required: Independent Distance (Feet) 60 Assistive Devices Assistive Device Front Wheeled Walker Orthotic/Prosthetic Devices or Brace: No Gait Deviations General Gait Pattern Decreased Stride Length, Decreased Feet Clearance, Flexed Trunk,Wide Based Gait Comments Gait Comments limited by weight of legs due to lymphedema PT-OP-J Posture/Palpation/Skin Start: 01/10/23 16:14 Freq: Status: Active Protocol: Document 01/11/23 07:56 [facility] (Rec: 01/11/23 16:21 [facility] [id number]) Skin Assessment Other Assessments Skin Assessment Comments hyperkeratosis and elephatiasis stella LE's PT-OP-K Range of Motion Start: 01/10/23 16:14 Freq: Status: Active Protocol: Document 01/11/23 07:56 [facility] (Rec: 01/11/23 16:21 [facility] [id number]) Hip Goniometric Range of Motion Hip ROM Limitations Hip ROM Limitations Swelling Comments moderate limitations Knee Goniometric Range of Motion Knee ROM Limitations Knee ROM Limitations Swelling Comments moderate limitations Ankle and Foot Goniometric Range of Motion Ankle and Foot ROM Limitations ROM Limitations Swelling Comments moderate limitations PT-OP-M Strength Start: 01/10/23 16:14 Freq: Status: Active Protocol: Document 01/11/23 07:56 [facility] (Rec: 01/11/23 16:21 [facility] [id number]) Hip Strength Hip Manual Muscle Testing stella Comments less than anti-gravity stregnth, requires assistance for legs on and off treatment table. No MMT Knee Strength Knee Manual Muscle Testing stella Comments has anti-gravity strength ext. No MMT Ankle/Foot Strength Ankle and Foot Manual Muscle Testing stella Comments has anti gravity strength. No MMT PT-OP-N Lymphedema Start: 01/10/23 16:14 Freq: Status: Active Protocol: Document 05/24/23 15:10 [facility] (Rec: 05/24/23 16:59 [facility] [id number]) Lymphedema Measurements Lower Extremity Circumference Measurements Right Affected MT Heads 25.6 cm Mid-foot 25.3 cm Medial Malleolus 33.2 cm 10 cm From Medial Malleolus 40.5 cm 20 cm From Medial Malleolus 60 cm 30 cm From Medial Malleolus 64 cm 40 cm From Medial Malleolus 80 cm 50 cm From Medial Malleolus 80.2 cm 60 cm From Medial Malleolus 77.3 cm 70 cm From Medial Malleolus 76.5 cm Knee Joint 80.2 cm Left Affected MT Heads 25.7 cm Mid-foot 25.5 cm Medial Malleolus 33.3 cm 10 cm From Medial Malleolus 40.9 cm 20 cm From Medial Malleolus 54.8 cm 30 cm From Medial Malleolus 58.3 cm 40 cm From Medial Malleolus 66.7 cm 50 cm From Medial Malleolus 73.5 cm 60 cm From Medial Malleolus 78.3 cm 70 cm From Medial Malleolus 79.5 cm Knee Joint 67.8 cm PT-OP-Q Treatments Start: 01/10/23 16:14 Freq: Status: Active Protocol: Document 05/24/23 15:10 [facility] (Rec: 05/24/23 16:59 [facility] [id number]) Therapeutic Activity Therapeutic Activity donning compression tights Comments patient reported feeling too worn out to put the compression tights on, will elevate legs more and put tights on tomorrow. Lymphedema Treatment Manual Lymphatic Drainage Location for stella LE's, Duration 60 Comments focus on AIA pathways Lymphedema Wrapping Body Location stella LE's toes to knees Materials Coban system with padding, extra black foam anterior ankle crease, covered by Coban Lite bilateral LEs MTP's to just below knees. Other assisted patient in donning Bio[employer]lect compression tights Sequential Lymphedema Exercises Comments TrA, glut sets, LAQ, ankle pumps and circles, toe flex/ ext, deep breathing [ End ] Patient Education Compression Garments wear tights only during the day Other Other sequential pneumatic pump right LE during MLD left 30 min at 45 mm HG work on fibrotic tissue stella lower legs right greater than left Continue to wear compression tights as able, monitor yeast infection PT-OP-T Assessment and Plan Start: 01/10/23 16:14 Freq: Status: Active Protocol: Document 05/24/23 15:10 [facility] (Rec: 05/24/23 16:59 [facility] [id number]) Physical Therapy Assessment Goals Three Impairment impaired mobility and activity tolerance related to size of her legs Impairment uses FWW and doesn't go out of the house other than for medical appointments Short Term Goal (STG) Patient will be able to ambulate 500 ft with SPC with min assist 04/05/23: goal met STG Duration goal met Final Assembly Inspector Goal (LTG) Patient will be able to ambulate at least 1000 feet with least restrictive device to allow for return to community mobility 04/18/23: goal progress, patient reports increased ease of lifting LE's, now able to get on and off treatment table on own 75% of time LTG Duration 06/12/23 Two Impairment LYmphedema life impact scale 56% Short Term Goal (STG) Decrease Lymphedema life impact scale to no greater than 40% 04/05/23: goal met STG Duration goal met Mcc Goal (LTG) Decrease lymphedema life impact scale to no greater than 25% as measure of improved activity tolerance and quality of life 04/13/23: goal progress, not fully achieved LTG Duration 06/12/23 One Impairment Lymphedema stella LE's Short Term Goal (STG) Patient to be instructed in all aspects of lymphedema care to include skin care, MLD, compression, and lymphedema exercises 04/05/23: goal met STG Duration goal met Mcc Goal (LTG) Patient to be independent in all aspects of lymphedema care , LE circumferential measurements to be stable (no increase or decrease greater than 1 cm over the course of 1 week), and patient to obtain appropriate compression garments for stella LE lymphedema managements and possibly sequential pneumatic pump. 04/12/23: Patient is challenged by wearing adequate compression due to body size and shape and difficulty reaching, as well as financial concerns as she is currently living out of her car. LTG Duration 06/12/23 Progress Towards Goals Progress Towards Goals Slow Progress due to Medical Issues Assessment Summary Assessment right LE circumferential measurements increased significantly today especially at knee region, cause uncertain. Reduced with MLD. Left mostly stable today. Patient not doing well emotionally today due to bad news from oncologist about her response to the immunotherapy and concern over surgeon not being willing to perform her surgery. Her lymphedema is easily exacerbated likely due to her medical issues affecting her lymphatic system as well as patient homelessness making compliance with all aspects of lymphedema care challenging. Physical Therapy Plan Frequency and Duration Frequency of Treatment 2x/Week Duration of treatment (weeks) 8 Plan of Care Start Date 04/12/23 Plan of Care End Date 06/12/23 Therapeutic Interventions Therapeutic Interventions Home Exercise Program, Lymphedema Management,Manual Therapy,Patient/Caregiver Education,Self-Care/Home Management,Therapeutic Activities,Therapeutic Exercises Next Visit Focus/Plan Next Note Type Treatment Note Next Visit Plan Lymphedema management emphasis on MLD with soft tissue mobilization to fibrotic tissue. Patient to order compression alternatives. Will evaluate fit and effectiveness when receives.
--- NOTE | 2023-05-26 08:22 | PT.OTN ---
Current Diagnoses Lymphedema, not elsewhere classified (05/26/23) Non-pressure chronic ulcer of other part of left lower leg with fat layer exposed (05/26/23) Soft tissue disorder, unspecified (05/26/23) Difficulty in walking, not elsewhere classified (05/26/23) Physical Therapy Treatment Note PT-OP-A Visit Information Start: 01/10/23 16:14 Freq: Status: Active Protocol: Document 05/26/23 07:54 [facility] (Rec: 05/26/23 08:22 [facility] [id number]) Out-Patient Physical Therapy Visit Information Visit Information Visit Type Treatment Note Visit Start Time 07:52 Visit Number 21 Precautions Precautions endometrial cancer, nonhealing wound left LE PT-OP-B Current Condition Start: 01/10/23 16:14 Freq: Status: Active Protocol: Document 05/24/23 15:10 [facility] (Rec: 05/24/23 16:59 [facility] [id number]) Current Condition History of Current Condition Onset Date 22 months Current Complaints stella LE lymphedema History of Current Condition was travelling and knew something was wrong with her left leg, went to ER diagnosed with cellulitis stella LE's, was in hospital 28 days. 3 days before discharge developed lymphedema. Went to [facility] wound care, did not have good experience, no recommendation for PT. Now going to wound care at [facility] and PT was recommended. Using Vaseline due to dryness in legs. Has had multiple infections since that time. Then last year having vaginal bleeding and diagnosed with endometrial cancer. Has had 3 treatments of chemo. Can't have Obgyn surgery until infection in leg healed, possiblty more chemo. Sees oncologist tomorrow Dr. Merrick Hurtado in [place] at [facility]. Prior Treatments and Tests PMH: cellulitis, lymphedema stella LE's, peripheral neuropathy, morbid obesity, hysteroscopy, chronic non- healing ulcer left LE Future Testing and Treatments Planned Preparing for Obgyn surgery for endometrial cancer. PT-OP-C Subjective Start: 01/10/23 16:14 Freq: Status: Active Protocol: Document 05/26/23 07:54 [facility] (Rec: 05/26/23 08:22 [facility] [id number]) OP-PT Subjective Patient Comments Patient Comments States drank more water and elevated right LE more, feels swelling better. PT-OP-G Mobility & Gait Start: 01/10/23 16:14 Freq: Status: Active Protocol: Document 01/11/23 07:56 [facility] (Rec: 01/11/23 16:21 [facility] [id number]) OP Mobility Evaluation Bed Mobility Supine to and from Sit mod assist for LE's Transfers Sit to Stand use of FWW with SBA OP Gait Assessment Gait Gait Assistance Required: Independent Distance (Feet) 60 Assistive Devices Assistive Device Front Wheeled Walker Orthotic/Prosthetic Devices or Brace: No Gait Deviations General Gait Pattern Decreased Stride Length, Decreased Feet Clearance, Flexed Trunk,Wide Based Gait Comments Gait Comments limited by weight of legs due to lymphedema PT-OP-J Posture/Palpation/Skin Start: 01/10/23 16:14 Freq: Status: Active Protocol: Document 01/11/23 07:56 [facility] (Rec: 01/11/23 16:21 [facility] [id number]) Skin Assessment Other Assessments Skin Assessment Comments hyperkeratosis and elephatiasis stella LE's PT-OP-K Range of Motion Start: 01/10/23 16:14 Freq: Status: Active Protocol: Document 01/11/23 07:56 [facility] (Rec: 01/11/23 16:21 [facility] [id number]) Hip Goniometric Range of Motion Hip ROM Limitations Hip ROM Limitations Swelling Comments moderate limitations Knee Goniometric Range of Motion Knee ROM Limitations Knee ROM Limitations Swelling Comments moderate limitations Ankle and Foot Goniometric Range of Motion Ankle and Foot ROM Limitations ROM Limitations Swelling Comments moderate limitations PT-OP-M Strength Start: 01/10/23 16:14 Freq: Status: Active Protocol: Document 01/11/23 07:56 [facility] (Rec: 01/11/23 16:21 [facility] [id number]) Hip Strength Hip Manual Muscle Testing stella Comments less than anti-gravity stregnth, requires assistance for legs on and off treatment table. No MMT Knee Strength Knee Manual Muscle Testing stella Comments has anti-gravity strength ext. No MMT Ankle/Foot Strength Ankle and Foot Manual Muscle Testing stella Comments has anti gravity strength. No MMT PT-OP-N Lymphedema Start: 01/10/23 16:14 Freq: Status: Active Protocol: Document 05/24/23 15:10 [facility] (Rec: 05/24/23 16:59 [facility] [id number]) Lymphedema Measurements Lower Extremity Circumference Measurements Right Affected MT Heads 25.6 cm Mid-foot 25.3 cm Medial Malleolus 33.2 cm 10 cm From Medial Malleolus 40.5 cm 20 cm From Medial Malleolus 60 cm 30 cm From Medial Malleolus 64 cm 40 cm From Medial Malleolus 80 cm 50 cm From Medial Malleolus 80.2 cm 60 cm From Medial Malleolus 77.3 cm 70 cm From Medial Malleolus 76.5 cm Knee Joint 80.2 cm Left Affected MT Heads 25.7 cm Mid-foot 25.5 cm Medial Malleolus 33.3 cm 10 cm From Medial Malleolus 40.9 cm 20 cm From Medial Malleolus 54.8 cm 30 cm From Medial Malleolus 58.3 cm 40 cm From Medial Malleolus 66.7 cm 50 cm From Medial Malleolus 73.5 cm 60 cm From Medial Malleolus 78.3 cm 70 cm From Medial Malleolus 79.5 cm Knee Joint 67.8 cm PT-OP-Q Treatments Start: 01/10/23 16:14 Freq: Status: Active Protocol: Document 05/26/23 07:54 [facility] (Rec: 05/26/23 08:22 [facility] [id number]) Lymphedema Treatment Other Other sequential pneumatic pump right LE during MLD left 30 min at 45 mm HG work on fibrotic tissue stella lower legs right greater than left Continue to wear compression tights as able, monitor yeast infection PT-OP-T Assessment and Plan Start: 01/10/23 16:14 Freq: Status: Active Protocol: Document 05/26/23 07:54 [facility] (Rec: 05/26/23 08:22 [facility] [id number]) Physical Therapy Assessment Goals Three Impairment impaired mobility and activity tolerance related to size of her legs Impairment uses FWW and doesn't go out of the house other than for medical appointments Short Term Goal (STG) Patient will be able to ambulate 500 ft with SPC with min assist 04/05/23: goal met STG Duration goal met Fdc Goal (LTG) Patient will be able to ambulate at least 1000 feet with least restrictive device to allow for return to community mobility 04/18/23: goal progress, patient reports increased ease of lifting LE's, now able to get on and off treatment table on own 75% of time LTG Duration 06/12/23 Two Impairment LYmphedema life impact scale 56% Short Term Goal (STG) Decrease Lymphedema life impact scale to no greater than 40% 04/05/23: goal met STG Duration goal met Fdc Goal (LTG) Decrease lymphedema life impact scale to no greater than 25% as measure of improved activity tolerance and quality of life 04/13/23: goal progress, not fully achieved LTG Duration 06/12/23 One Impairment Lymphedema stella LE's Short Term Goal (STG) Patient to be instructed in all aspects of lymphedema care to include skin care, MLD, compression, and lymphedema exercises 04/05/23: goal met STG Duration goal met Fdc Goal (LTG) Patient to be independent in all aspects of lymphedema care , LE circumferential measurements to be stable (no increase or decrease greater than 1 cm over the course of 1 week), and patient to obtain appropriate compression garments for stella LE lymphedema managements and possibly sequential pneumatic pump. 04/12/23: Patient is challenged by wearing adequate compression due to body size and shape and difficulty reaching, as well as financial concerns as she is currently living out of her car. LTG Duration 06/12/23 Progress Towards Goals Progress Towards Goals Slow Progress due to Medical Issues Assessment Summary Assessment open areas left LE fully healed. Edema decreased stella LE's. Patient going to order compression wraps on Tuesday. Wearing compression tights during the day. Yeast infection healing. Still awaiting word from surgeon to see if going to do surgery on 06/08/23. Today is last infusion of immunotherapy. Physical Therapy Plan Frequency and Duration Frequency of Treatment 2x/Week Duration of treatment (weeks) 8 Plan of Care Start Date 04/12/23 Plan of Care End Date 06/12/23 Therapeutic Interventions Therapeutic Interventions Home Exercise Program, Lymphedema Management,Manual Therapy,Patient/Caregiver Education,Self-Care/Home Management,Therapeutic Activities,Therapeutic Exercises Next Visit Focus/Plan Next Note Type Treatment Note Next Visit Plan Lymphedema management emphasis on MLD with soft tissue mobilization to fibrotic tissue. Patient to order compression alternatives Tuesday Will evaluate fit and effectiveness when receives.
--- NOTE | 2023-05-30 12:01 | PT.OTN ---
Current Diagnoses Lymphedema, not elsewhere classified (05/30/23) Non-pressure chronic ulcer of other part of left lower leg with fat layer exposed (05/30/23) Soft tissue disorder, unspecified (05/30/23) Difficulty in walking, not elsewhere classified (05/30/23) Physical Therapy Treatment Note PT-OP-A Visit Information Start: 01/10/23 16:14 Freq: Status: Active Protocol: Document 05/30/23 10:25 SAK (Rec: 05/30/23 10:36 [facility] [id number]) Out-Patient Physical Therapy Visit Information Visit Information Visit Type Treatment Note Visit Start Time 10:30 Visit Stop Time 12:00 Total Visit Minutes 90 Visit Number 22 Precautions Precautions endometrial cancer, nonhealing wound left LE PT-OP-B Current Condition Start: 01/10/23 16:14 Freq: Status: Active Protocol: Document 05/24/23 15:10 SAK (Rec: 05/24/23 16:59 SAK [id number]) Current Condition History of Current Condition Onset Date 22 months Current Complaints stella LE lymphedema History of Current Condition was travelling and knew something was wrong with her left leg, went to ER diagnosed with cellulitis stella LE's, was in hospital 28 days. 3 days before discharge developed lymphedema. Went to [facility] wound care, did not have good experience, no recommendation for PT. Now going to wound care at [facility] and PT was recommended. Using Vaseline due to dryness in legs. Has had multiple infections since that time. Then last year having vaginal bleeding and diagnosed with endometrial cancer. Has had 3 treatments of chemo. Can't have Obgyn surgery until infection in leg healed, possiblty more chemo. Sees oncologist tomorrow Dr. Merrick Hurtado in [place] at [facility]. Prior Treatments and Tests PMH: cellulitis, lymphedema stella LE's, peripheral neuropathy, morbid obesity, hysteroscopy, chronic non- healing ulcer left LE Future Testing and Treatments Planned Preparing for Obgyn surgery for endometrial cancer. PT-OP-C Subjective Start: 01/10/23 16:14 Freq: Status: Active Protocol: Document 05/30/23 10:25 SAK (Rec: 05/30/23 10:36 SAK [id number]) OP-PT Subjective Patient Comments Patient Comments Took shower this am, states it took a lot out of her. States legs smaller, able to put jeans on this am after shower, now wearing any compression at this time PT-OP-G Mobility & Gait Start: 01/10/23 16:14 Freq: Status: Active Protocol: Document 01/11/23 07:56 SAK (Rec: 01/11/23 16:21 [facility] [id number]) OP Mobility Evaluation Bed Mobility Supine to and from Sit mod assist for LE's Transfers Sit to Stand use of FWW with SBA OP Gait Assessment Gait Gait Assistance Required: Independent Distance (Feet) 60 Assistive Devices Assistive Device Front Wheeled Walker Orthotic/Prosthetic Devices or Brace: No Gait Deviations General Gait Pattern Decreased Stride Length, Decreased Feet Clearance, Flexed Trunk,Wide Based Gait Comments Gait Comments limited by weight of legs due to lymphedema PT-OP-J Posture/Palpation/Skin Start: 01/10/23 16:14 Freq: Status: Active Protocol: Document 01/11/23 07:56 SAK (Rec: 01/11/23 16:21 [facility] [id number]) Skin Assessment Other Assessments Skin Assessment Comments hyperkeratosis and elephatiasis stella LE's PT-OP-K Range of Motion Start: 01/10/23 16:14 Freq: Status: Active Protocol: Document 01/11/23 07:56 SAK (Rec: 01/11/23 16:21 [facility] [id number]) Hip Goniometric Range of Motion Hip ROM Limitations Hip ROM Limitations Swelling Comments moderate limitations Knee Goniometric Range of Motion Knee ROM Limitations Knee ROM Limitations Swelling Comments moderate limitations Ankle and Foot Goniometric Range of Motion Ankle and Foot ROM Limitations ROM Limitations Swelling Comments moderate limitations PT-OP-M Strength Start: 01/10/23 16:14 Freq: Status: Active Protocol: Document 01/11/23 07:56 SAK (Rec: 01/11/23 16:21 [facility] [id number]) Hip Strength Hip Manual Muscle Testing stella Comments less than anti-gravity stregnth, requires assistance for legs on and off treatment table. No MMT Knee Strength Knee Manual Muscle Testing stella Comments has anti-gravity strength ext. No MMT Ankle/Foot Strength Ankle and Foot Manual Muscle Testing stella Comments has anti gravity strength. No MMT PT-OP-N Lymphedema Start: 01/10/23 16:14 Freq: Status: Active Protocol: Document 05/30/23 10:25 SAK (Rec: 05/30/23 11:06 [facility] [id number]) Lymphedema Measurements Lower Extremity Circumference Measurements Right Affected MT Heads 26 cm Mid-foot 25.6 cm Medial Malleolus 34 cm 10 cm From Medial Malleolus 42 cm 20 cm From Medial Malleolus 55.5 cm 30 cm From Medial Malleolus 61.3 cm 40 cm From Medial Malleolus 65.5 cm 50 cm From Medial Malleolus 74 cm 60 cm From Medial Malleolus 74.4 cm 70 cm From Medial Malleolus 78.3 cm Knee Joint 69 cm - from bottom of foot Left Affected MT Heads 24.4 cm Mid-foot 25.7 cm Medial Malleolus 33 cm 10 cm From Medial Malleolus 41.7 cm 20 cm From Medial Malleolus 49.9 cm 30 cm From Medial Malleolus 56.8 cm 40 cm From Medial Malleolus 62.7 cm 50 cm From Medial Malleolus 72.8 cm 60 cm From Medial Malleolus 77.9 cm 70 cm From Medial Malleolus 78.6 cm Knee Joint 65.7 cm - from bottom of foot PT-OP-Q Treatments Start: 01/10/23 16:14 Freq: Status: Active Protocol: Document 05/30/23 10:25 [facility] (Rec: 05/30/23 10:36 [facility] [id number]) Cardio Equipment Recumbent Stepper (Sci-Fit) Duration (Minutes) 9 Resistance 1.5 Seat Position 12 Lymphedema Treatment Manual Lymphatic Drainage Location for stella LE's, Duration 30 Comments focus on AIA pathways Lymphedema Wrapping Body Location stella LE's toes to knees Materials Coban system with padding, extra black foam anterior ankle crease, covered by Coban Lite bilateral LEs MTP's to just below knees. Other Patient to do on own Sequential Lymphedema Exercises Comments home Compression Garment Assessment Compression Garment Assessment Details to order tomorrow Patient Education Compression Garments wear tights only during the day Other Other sequential pneumatic pump right LE during MLD left 30 min at 45 mm HG work on fibrotic tissue stella lower legs right greater than left Continue to wear compression tights as able, monitor yeast infection PT-OP-T Assessment and Plan Start: 01/10/23 16:14 Freq: Status: Active Protocol: Document 05/30/23 10:25 [facility] (Rec: 05/30/23 10:36 SAK [id number]) Physical Therapy Assessment Goals Three Impairment impaired mobility and activity tolerance related to size of her legs Impairment uses FWW and doesn't go out of the house other than for medical appointments Short Term Goal (STG) Patient will be able to ambulate 500 ft with SPC with min assist 04/05/23: goal met STG Duration goal met Spreader Box Operator Goal (LTG) Patient will be able to ambulate at least 1000 feet with least restrictive device to allow for return to community mobility 04/18/23: goal progress, patient reports increased ease of lifting LE's, now able to get on and off treatment table on own 75% of time LTG Duration 06/12/23 Two Impairment LYmphedema life impact scale 56% Short Term Goal (STG) Decrease Lymphedema life impact scale to no greater than 40% 04/05/23: goal met STG Duration goal met Spreader Box Operator Goal (LTG) Decrease lymphedema life impact scale to no greater than 25% as measure of improved activity tolerance and quality of life 04/13/23: goal progress, not fully achieved LTG Duration 06/12/23 One Impairment Lymphedema stella LE's Short Term Goal (STG) Patient to be instructed in all aspects of lymphedema care to include skin care, MLD, compression, and lymphedema exercises 04/05/23: goal met STG Duration goal met Prison Goal (LTG) Patient to be independent in all aspects of lymphedema care , LE circumferential measurements to be stable (no increase or decrease greater than 1 cm over the course of 1 week), and patient to obtain appropriate compression garments for stella LE lymphedema managements and possibly sequential pneumatic pump. 04/12/23: Patient is challenged by wearing adequate compression due to body size and shape and difficulty reaching, as well as financial concerns as she is currently living out of her car. LTG Duration 06/12/23 Assessment Summary Assessment Good improvement in circumferential measurements. One open area at anterior left ankle, clean, healing, covered with Bacitracin and bandaid. Feel improvement due to patient ability to stay in hotel yesterday/last night, use pump,elevate and shower. Homelessness continues to impact her health. Sees Oncologist immediately prior to next PT session. Physical Therapy Plan Frequency and Duration Frequency of Treatment 2x/Week Duration of treatment (weeks) 8 Plan of Care Start Date 04/12/23 Plan of Care End Date 06/12/23 Therapeutic Interventions Therapeutic Interventions Home Exercise Program, Lymphedema Management,Manual Therapy,Patient/Caregiver Education,Self-Care/Home Management,Therapeutic Activities,Therapeutic Exercises Next Visit Focus/Plan Next Note Type Treatment Note Next Visit Plan Lymphedema management emphasis on MLD with soft tissue mobilization to fibrotic tissue. Patient to order compression alternatives Tuesday Will evaluate fit and effectiveness when receives.
--- NOTE | 2023-06-01 08:57 | PT-OP ANOTE ---
cancelled PT appt due to schedule conflict
--- NOTE | 2023-06-02 10:13 | PT.OTN ---
Current Diagnoses Lymphedema, not elsewhere classified (06/02/23) Non-pressure chronic ulcer of other part of left lower leg with fat layer exposed (06/02/23) Soft tissue disorder, unspecified (06/02/23) Difficulty in walking, not elsewhere classified (06/02/23) Physical Therapy Treatment Note PT-OP-A Visit Information Start: 01/10/23 16:14 Freq: Status: Active Protocol: Document 06/02/23 08:38 SAK (Rec: 06/02/23 09:05 [facility] [id number]) Out-Patient Physical Therapy Visit Information Visit Information Visit Type Treatment Note Visit Start Time 08:45 Visit Stop Time 10:11 Total Visit Minutes 86 Visit Number 23 Precautions Precautions endometrial cancer, nonhealing wound left LE PT-OP-B Current Condition Start: 01/10/23 16:14 Freq: Status: Active Protocol: Document 05/24/23 15:10 SAK (Rec: 05/24/23 16:59 SAK [id number]) Current Condition History of Current Condition Onset Date 22 months Current Complaints stella LE lymphedema History of Current Condition was travelling and knew something was wrong with her left leg, went to ER diagnosed with cellulitis stella LE's, was in hospital 28 days. 3 days before discharge developed lymphedema. Went to [facility] wound care, did not have good experience, no recommendation for PT. Now going to wound care at [facility] and PT was recommended. Using Vaseline due to dryness in legs. Has had multiple infections since that time. Then last year having vaginal bleeding and diagnosed with endometrial cancer. Has had 3 treatments of chemo. Can't have Obgyn surgery until infection in leg healed, possiblty more chemo. Sees oncologist tomorrow Dr. Merrick Hurtado in [place] at [facility]. Prior Treatments and Tests PMH: cellulitis, lymphedema stella LE's, peripheral neuropathy, morbid obesity, hysteroscopy, chronic non- healing ulcer left LE Future Testing and Treatments Planned Preparing for Obgyn surgery for endometrial cancer. PT-OP-C Subjective Start: 01/10/23 16:14 Freq: Status: Active Protocol: Document 06/02/23 08:38 SAK (Rec: 06/02/23 09:05 SAK [id number]) OP-PT Subjective Patient Comments Patient Comments FAtigued, reports had itchy rash, medication took care of itching but is feeling very sleepy. Had appointment with oncologist, going on different chemo if insurance approves. PT-OP-G Mobility & Gait Start: 01/10/23 16:14 Freq: Status: Active Protocol: Document 01/11/23 07:56 SAK (Rec: 01/11/23 16:21 [facility] [id number]) OP Mobility Evaluation Bed Mobility Supine to and from Sit mod assist for LE's Transfers Sit to Stand use of FWW with SBA OP Gait Assessment Gait Gait Assistance Required: Independent Distance (Feet) 60 Assistive Devices Assistive Device Front Wheeled Walker Orthotic/Prosthetic Devices or Brace: No Gait Deviations General Gait Pattern Decreased Stride Length, Decreased Feet Clearance, Flexed Trunk,Wide Based Gait Comments Gait Comments limited by weight of legs due to lymphedema PT-OP-J Posture/Palpation/Skin Start: 01/10/23 16:14 Freq: Status: Active Protocol: Document 01/11/23 07:56 SAK (Rec: 01/11/23 16:21 [facility] [id number]) Skin Assessment Other Assessments Skin Assessment Comments hyperkeratosis and elephatiasis stella LE's PT-OP-K Range of Motion Start: 01/10/23 16:14 Freq: Status: Active Protocol: Document 01/11/23 07:56 SAK (Rec: 01/11/23 16:21 [facility] [id number]) Hip Goniometric Range of Motion Hip ROM Limitations Hip ROM Limitations Swelling Comments moderate limitations Knee Goniometric Range of Motion Knee ROM Limitations Knee ROM Limitations Swelling Comments moderate limitations Ankle and Foot Goniometric Range of Motion Ankle and Foot ROM Limitations ROM Limitations Swelling Comments moderate limitations PT-OP-M Strength Start: 01/10/23 16:14 Freq: Status: Active Protocol: Document 01/11/23 07:56 SAK (Rec: 01/11/23 16:21 [facility] [id number]) Hip Strength Hip Manual Muscle Testing stella Comments less than anti-gravity stregnth, requires assistance for legs on and off treatment table. No MMT Knee Strength Knee Manual Muscle Testing stella Comments has anti-gravity strength ext. No MMT Ankle/Foot Strength Ankle and Foot Manual Muscle Testing stella Comments has anti gravity strength. No MMT PT-OP-N Lymphedema Start: 01/10/23 16:14 Freq: Status: Active Protocol: Document 05/30/23 10:25 SAK (Rec: 05/30/23 11:06 [facility] [id number]) Lymphedema Measurements Lower Extremity Circumference Measurements Right Affected MT Heads 26 cm Mid-foot 25.6 cm Medial Malleolus 34 cm 10 cm From Medial Malleolus 42 cm 20 cm From Medial Malleolus 55.5 cm 30 cm From Medial Malleolus 61.3 cm 40 cm From Medial Malleolus 65.5 cm 50 cm From Medial Malleolus 74 cm 60 cm From Medial Malleolus 74.4 cm 70 cm From Medial Malleolus 78.3 cm Knee Joint 69 cm - from bottom of foot Left Affected MT Heads 24.4 cm Mid-foot 25.7 cm Medial Malleolus 33 cm 10 cm From Medial Malleolus 41.7 cm 20 cm From Medial Malleolus 49.9 cm 30 cm From Medial Malleolus 56.8 cm 40 cm From Medial Malleolus 62.7 cm 50 cm From Medial Malleolus 72.8 cm 60 cm From Medial Malleolus 77.9 cm 70 cm From Medial Malleolus 78.6 cm Knee Joint 65.7 cm - from bottom of foot PT-OP-Q Treatments Start: 01/10/23 16:14 Freq: Status: Active Protocol: Document 06/02/23 08:38 [facility] (Rec: 06/02/23 09:05 [facility] [id number]) Cardio Equipment Recumbent Stepper (Sci-Fit) Duration (Minutes) 5 Resistance 1 Seat Position 12 Lymphedema Treatment Manual Lymphatic Drainage Location for stella LE's, Duration 30 Comments focus on AIA pathways Lymphedema Wrapping Body Location stella LE's toes to knees Materials Coban system with padding, extra black foam anterior ankle crease, covered by Coban Lite bilateral LEs MTP's to just below knees. Other Patient to do on own Compression Garment Assessment Compression Garment Assessment Details Now patient reporting she will order next week due to finances; had to get car repaired. Other Other sequential pneumatic pump right LE during MLD left 30 min at 45 mm HG work on fibrotic tissue stella lower legs right greater than left Continue to wear compression tights as able, monitor yeast infection PT-OP-T Assessment and Plan Start: 01/10/23 16:14 Freq: Status: Active Protocol: Document 06/02/23 08:38 [facility] (Rec: 06/02/23 09:05 [facility] [id number]) Physical Therapy Assessment Goals Three Impairment impaired mobility and activity tolerance related to size of her legs Impairment uses FWW and doesn't go out of the house other than for medical appointments Short Term Goal (STG) Patient will be able to ambulate 500 ft with SPC with min assist 04/05/23: goal met STG Duration goal met Ship Captain Goal (LTG) Patient will be able to ambulate at least 1000 feet with least restrictive device to allow for return to community mobility 04/18/23: goal progress, patient reports increased ease of lifting LE's, now able to get on and off treatment table on own 75% of time LTG Duration 06/12/23 Two Impairment LYmphedema life impact scale 56% Short Term Goal (STG) Decrease Lymphedema life impact scale to no greater than 40% 04/05/23: goal met STG Duration goal met Custodial Goal (LTG) Decrease lymphedema life impact scale to no greater than 25% as measure of improved activity tolerance and quality of life 04/13/23: goal progress, not fully achieved LTG Duration 06/12/23 One Impairment Lymphedema stella LE's Short Term Goal (STG) Patient to be instructed in all aspects of lymphedema care to include skin care, MLD, compression, and lymphedema exercises 04/05/23: goal met STG Duration goal met Custodial Goal (LTG) Patient to be independent in all aspects of lymphedema care , LE circumferential measurements to be stable (no increase or decrease greater than 1 cm over the course of 1 week), and patient to obtain appropriate compression garments for stella LE lymphedema managements and possibly sequential pneumatic pump. 04/12/23: Patient is challenged by wearing adequate compression due to body size and shape and difficulty reaching, as well as financial concerns as she is currently living out of her car. LTG Duration 06/12/23 Assessment Summary Assessment Good progress with lower leg lymphedema, small open area right anterior ankle crease healing well. knees and upper legs with inc edema due to not wearing compression tights . Physical Therapy Plan Frequency and Duration Frequency of Treatment 2x/Week Duration of treatment (weeks) 8 Plan of Care Start Date 04/12/23 Plan of Care End Date 06/12/23 Therapeutic Interventions Therapeutic Interventions Home Exercise Program, Lymphedema Management,Manual Therapy,Patient/Caregiver Education,Self-Care/Home Management,Therapeutic Activities,Therapeutic Exercises Next Visit Focus/Plan Next Note Type Treatment Note Next Visit Plan Lymphedema management emphasis on MLD with soft tissue mobilization to fibrotic tissue. Patient to order compression alternatives Tuesday Will evaluate fit and effectiveness when receives.
--- NOTE | 2023-06-06 14:12 | PT.OTN ---
Current Diagnoses Lymphedema, not elsewhere classified (06/06/23) Non-pressure chronic ulcer of other part of left lower leg with fat layer exposed (06/06/23) Soft tissue disorder, unspecified (06/06/23) Difficulty in walking, not elsewhere classified (06/06/23) Physical Therapy Treatment Note PT-OP-A Visit Information Start: 01/10/23 16:14 Freq: Status: Active Protocol: Document 06/06/23 10:31 SAK (Rec: 06/06/23 11:18 [facility] [id number]) Out-Patient Physical Therapy Visit Information Visit Information Visit Type Treatment Note Visit Start Time 10: Visit Stop Time 11:59 Total Visit Minutes 88 Visit Number 24 Precautions Precautions endometrial cancer, nonhealing wound left LE PT-OP-B Current Condition Start: 01/10/23 16:14 Freq: Status: Active Protocol: Document 05/24/23 15:10 SAK (Rec: 05/24/23 16:59 SAK [id number]) Current Condition History of Current Condition Onset Date 22 months Current Complaints stella LE lymphedema History of Current Condition was travelling and knew something was wrong with her left leg, went to ER diagnosed with cellulitis stella LE's, was in hospital 28 days. 3 days before discharge developed lymphedema. Went to [facility] wound care, did not have good experience, no recommendation for PT. Now going to wound care at [facility] and PT was recommended. Using Vaseline due to dryness in legs. Has had multiple infections since that time. Then last year having vaginal bleeding and diagnosed with endometrial cancer. Has had 3 treatments of chemo. Can't have Obgyn surgery until infection in leg healed, possiblty more chemo. Sees oncologist tomorrow Dr. Merrick Hurtado in [place] at [facility]. Prior Treatments and Tests PMH: cellulitis, lymphedema stella LE's, peripheral neuropathy, morbid obesity, hysteroscopy, chronic non- healing ulcer left LE Future Testing and Treatments Planned Preparing for Obgyn surgery for endometrial cancer. PT-OP-C Subjective Start: 01/10/23 16:14 Freq: Status: Active Protocol: Document 06/06/23 10:31 SAK (Rec: 06/06/23 11:18 SAK [id number]) OP-PT Subjective Patient Comments Patient Comments No new c/o. Cancer surgery has been cancelled for now, starting on new chemo soon. Plans to order new compression garments in 2 days. PT-OP-G Mobility & Gait Start: 01/10/23 16:14 Freq: Status: Active Protocol: Document 01/11/23 07:56 [facility] (Rec: 01/11/23 16:21 [facility] [id number]) OP Mobility Evaluation Bed Mobility Supine to and from Sit mod assist for LE's Transfers Sit to Stand use of FWW with SBA OP Gait Assessment Gait Gait Assistance Required: Independent Distance (Feet) 60 Assistive Devices Assistive Device Front Wheeled Walker Orthotic/Prosthetic Devices or Brace: No Gait Deviations General Gait Pattern Decreased Stride Length, Decreased Feet Clearance, Flexed Trunk,Wide Based Gait Comments Gait Comments limited by weight of legs due to lymphedema PT-OP-J Posture/Palpation/Skin Start: 01/10/23 16:14 Freq: Status: Active Protocol: Document 01/11/23 07:56 [facility] (Rec: 01/11/23 16:21 [facility] [id number]) Skin Assessment Other Assessments Skin Assessment Comments hyperkeratosis and elephatiasis stella LE's PT-OP-K Range of Motion Start: 01/10/23 16:14 Freq: Status: Active Protocol: Document 01/11/23 07:56 [facility] (Rec: 01/11/23 16:21 [facility] [id number]) Hip Goniometric Range of Motion Hip ROM Limitations Hip ROM Limitations Swelling Comments moderate limitations Knee Goniometric Range of Motion Knee ROM Limitations Knee ROM Limitations Swelling Comments moderate limitations Ankle and Foot Goniometric Range of Motion Ankle and Foot ROM Limitations ROM Limitations Swelling Comments moderate limitations PT-OP-M Strength Start: 01/10/23 16:14 Freq: Status: Active Protocol: Document 01/11/23 07:56 [facility] (Rec: 01/11/23 16:21 [facility] [id number]) Hip Strength Hip Manual Muscle Testing stella Comments less than anti-gravity stregnth, requires assistance for legs on and off treatment table. No MMT Knee Strength Knee Manual Muscle Testing stella Comments has anti-gravity strength ext. No MMT Ankle/Foot Strength Ankle and Foot Manual Muscle Testing stella Comments has anti gravity strength. No MMT PT-OP-N Lymphedema Start: 01/10/23 16:14 Freq: Status: Active Protocol: Document 06/06/23 10:31 [facility] (Rec: 06/06/23 11:18 [facility] [id number]) Lymphedema Measurements Lower Extremity Circumference Measurements Right Affected MT Heads 25.2 cm Mid-foot 24.9 cm Medial Malleolus 33 cm 10 cm From Medial Malleolus 40 cm 20 cm From Medial Malleolus 56.2 cm 30 cm From Medial Malleolus 59.9 cm 40 cm From Medial Malleolus 73.3 cm 50 cm From Medial Malleolus 74 cm 60 cm From Medial Malleolus 74.4 cm 70 cm From Medial Malleolus 76.5 cm Knee Joint 72.5 cm Left Affected MT Heads 24.6 cm Mid-foot 25 cm Medial Malleolus 33.5 cm 10 cm From Medial Malleolus 39.7 cm 20 cm From Medial Malleolus 49.8 cm 30 cm From Medial Malleolus 55.7 cm 40 cm From Medial Malleolus 62.7 cm 50 cm From Medial Malleolus 70.8 cm 60 cm From Medial Malleolus 77 cm 70 cm From Medial Malleolus 77.8 cm Knee Joint 67.7 cm PT-OP-Q Treatments Start: 01/10/23 16:14 Freq: Status: Active Protocol: Document 06/06/23 10:31 [facility] (Rec: 06/06/23 11:18 [facility] [id number]) Cardio Equipment Recumbent Stepper (Sci-Fit) Duration (Minutes) 8 Resistance 1 Seat Position 10x Therapeutic Exercises Supine Exercises ankle pumps Reps/Minutes 10x2 deep breathing Reps/Minutes 5x3 Lymphedema Treatment Manual Lymphatic Drainage Location for stella LE's, Duration 30 Comments focus on AIA pathways Lymphedema Wrapping Body Location stella LE's toes to knees Materials Coban system with padding, extra black foam anterior ankle crease, covered by Coban Lite bilateral LEs MTP's to just below knees. Other Patient to do on own Sequential Lymphedema Exercises Comments home Compression Garment Assessment Compression Garment Assessment Details Will order on Tuesday Other Other sequential pneumatic pump right LE during MLD left 30 min at 45 mm HG work on fibrotic tissue stella lower legs right greater than left Continue to wear compression tights as able, monitor yeast infection PT-OP-T Assessment and Plan Start: 01/10/23 16:14 Freq: Status: Active Protocol: Document 06/06/23 10:31 [facility] (Rec: 06/06/23 11:18 [facility] [id number]) Physical Therapy Assessment Goals Three Impairment impaired mobility and activity tolerance related to size of her legs Impairment uses FWW and doesn't go out of the house other than for medical appointments Short Term Goal (STG) Patient will be able to ambulate 500 ft with SPC with min assist 04/05/23: goal met STG Duration goal met Wire Bound Box Machine Operator Goal (LTG) Patient will be able to ambulate at least 1000 feet with least restrictive device to allow for return to community mobility 04/18/23: goal progress, patient reports increased ease of lifting LE's, now able to get on and off treatment table on own 75% of time LTG Duration 06/12/23 Two Impairment LYmphedema life impact scale 56% Short Term Goal (STG) Decrease Lymphedema life impact scale to no greater than 40% 04/05/23: goal met STG Duration goal met Usp Goal (LTG) Decrease lymphedema life impact scale to no greater than 25% as measure of improved activity tolerance and quality of life 04/13/23: goal progress, not fully achieved LTG Duration 06/12/23 One Impairment Lymphedema stella LE's Short Term Goal (STG) Patient to be instructed in all aspects of lymphedema care to include skin care, MLD, compression, and lymphedema exercises 04/05/23: goal met STG Duration goal met Usp Goal (LTG) Patient to be independent in all aspects of lymphedema care , LE circumferential measurements to be stable (no increase or decrease greater than 1 cm over the course of 1 week), and patient to obtain appropriate compression garments for stella LE lymphedema managements and possibly sequential pneumatic pump. 04/12/23: Patient is challenged by wearing adequate compression due to body size and shape and difficulty reaching, as well as financial concerns as she is currently living out of her car. LTG Duration 06/12/23 Assessment Summary Assessment Small open area right ankle crease healing well, but 2 small blisters have formed adjacent, covered with bacitracin, 2x2 and secured with bandaids. Circumferential measurements variable, mostly stable or decreased. Physical Therapy Plan Frequency and Duration Frequency of Treatment 2x/Week Duration of treatment (weeks) 8 Plan of Care Start Date 04/12/23 Plan of Care End Date 06/12/23 Therapeutic Interventions Therapeutic Interventions Home Exercise Program, Lymphedema Management,Manual Therapy,Patient/Caregiver Education,Self-Care/Home Management,Therapeutic Activities,Therapeutic Exercises Next Visit Focus/Plan Next Note Type Treatment Note Next Visit Plan Had planned to discharge due to anticipated surgery, but surgery has been cancelled due to increase inc ancer markers , new chemo to be given. Continue lymphedema management until receives well fitting compression garments.
--- NOTE | 2023-06-20 12:46 | PT.OTN ---
Current Diagnoses Lymphedema, not elsewhere classified (06/20/23) Non-pressure chronic ulcer of other part of left lower leg with fat layer exposed (06/20/23) Soft tissue disorder, unspecified (06/20/23) Difficulty in walking, not elsewhere classified (06/20/23) Physical Therapy Treatment Note PT-OP-A Visit Information Start: 01/10/23 16:14 Freq: Status: Active Protocol: Document 06/20/23 10:29 SAK (Rec: 06/20/23 11:59 [facility] [id number]) Out-Patient Physical Therapy Visit Information Visit Information Visit Type Treatment Note Visit Start Time 10:30 Visit Stop Time 11:58 Total Visit Minutes 88 Visit Number 25 Precautions Precautions endometrial cancer, nonhealing wound left LE PT-OP-B Current Condition Start: 01/10/23 16:14 Freq: Status: Active Protocol: Document 05/24/23 15:10 SAK (Rec: 05/24/23 16:59 [facility] [id number]) Current Condition History of Current Condition Onset Date 22 months Current Complaints stella LE lymphedema History of Current Condition was travelling and knew something was wrong with her left leg, went to ER diagnosed with cellulitis stella LE's, was in hospital 28 days. 3 days before discharge developed lymphedema. Went to [facility] wound care, did not have good experience, no recommendation for PT. Now going to wound care at [facility] and PT was recommended. Using Vaseline due to dryness in legs. Has had multiple infections since that time. Then last year having vaginal bleeding and diagnosed with endometrial cancer. Has had 3 treatments of chemo. Can't have Obgyn surgery until infection in leg healed, possiblty more chemo. Sees oncologist tomorrow Dr. Merrick Hurtado in [place] at [facility]. Prior Treatments and Tests PMH: cellulitis, lymphedema stella LE's, peripheral neuropathy, morbid obesity, hysteroscopy, chronic non- healing ulcer left LE Future Testing and Treatments Planned Preparing for Obgyn surgery for endometrial cancer. PT-OP-C Subjective Start: 01/10/23 16:14 Freq: Status: Active Protocol: Document 06/20/23 10:29 SAK (Rec: 06/20/23 11:59 SAK [id number]) OP-PT Subjective Patient Comments Patient Comments Had new chemo regime last , reports extreme fatigue, hasn't been able to wear compression pants for 4 days. On Tuesday having difficulty breathing (apparent side effect from chemo), had to consciously work on breathing as instructed by PT and found it helpful. Has worn same compression bandaging since last seen in PT. Has blood labs taken on . REports another side effect of this chemo is edema . Had to have car repaired so still not able to order compression wraps. Patient Reported Progress Worse PT-OP-G Mobility & Gait Start: 01/10/23 16:14 Freq: Status: Active Protocol: Document 01/11/23 07:56 [facility] (Rec: 01/11/23 16:21 [facility] [id number]) OP Mobility Evaluation Bed Mobility Supine to and from Sit mod assist for LE's Transfers Sit to Stand use of FWW with SBA OP Gait Assessment Gait Gait Assistance Required: Independent Distance (Feet) 60 Assistive Devices Assistive Device Front Wheeled Walker Orthotic/Prosthetic Devices or Brace: No Gait Deviations General Gait Pattern Decreased Stride Length, Decreased Feet Clearance, Flexed Trunk,Wide Based Gait Comments Gait Comments limited by weight of legs due to lymphedema PT-OP-J Posture/Palpation/Skin Start: 01/10/23 16:14 Freq: Status: Active Protocol: Document 01/11/23 07:56 [facility] (Rec: 01/11/23 16:21 [facility] [id number]) Skin Assessment Other Assessments Skin Assessment Comments hyperkeratosis and elephatiasis stella LE's PT-OP-K Range of Motion Start: 01/10/23 16:14 Freq: Status: Active Protocol: Document 01/11/23 07:56 [facility] (Rec: 01/11/23 16:21 [facility] [id number]) Hip Goniometric Range of Motion Hip ROM Limitations Hip ROM Limitations Swelling Comments moderate limitations Knee Goniometric Range of Motion Knee ROM Limitations Knee ROM Limitations Swelling Comments moderate limitations Ankle and Foot Goniometric Range of Motion Ankle and Foot ROM Limitations ROM Limitations Swelling Comments moderate limitations PT-OP-M Strength Start: 01/10/23 16:14 Freq: Status: Active Protocol: Document 01/11/23 07:56 [facility] (Rec: 01/11/23 16:21 [facility] [id number]) Hip Strength Hip Manual Muscle Testing stella Comments less than anti-gravity stregnth, requires assistance for legs on and off treatment table. No MMT Knee Strength Knee Manual Muscle Testing stella Comments has anti-gravity strength ext. No MMT Ankle/Foot Strength Ankle and Foot Manual Muscle Testing stella Comments has anti gravity strength. No MMT PT-OP-N Lymphedema Start: 01/10/23 16:14 Freq: Status: Active Protocol: Document 06/20/23 10:29 [facility] (Rec: 06/20/23 11:59 [facility] [id number]) Lymphedema Measurements Lower Extremity Circumference Measurements Right Affected MT Heads 26.2 cm Mid-foot 25.5 cm Medial Malleolus 32.5 cm 10 cm From Medial Malleolus 40 cm 20 cm From Medial Malleolus 57.4 cm 30 cm From Medial Malleolus 63 cm 40 cm From Medial Malleolus 75.6 cm 50 cm From Medial Malleolus 76 cm 60 cm From Medial Malleolus 74.7 cm 70 cm From Medial Malleolus 77 cm Knee Joint 74 cm Left Affected MT Heads 24.8 cm Mid-foot 25 cm Medial Malleolus 33.7 cm 10 cm From Medial Malleolus 39 cm 20 cm From Medial Malleolus 49.9 cm 30 cm From Medial Malleolus 54.3 cm 40 cm From Medial Malleolus 66.5 cm 50 cm From Medial Malleolus 71.7 cm 60 cm From Medial Malleolus 75.8 cm 70 cm From Medial Malleolus 76 cm Knee Joint 64 cm PT-OP-Q Treatments Start: 01/10/23 16:14 Freq: Status: Active Protocol: Document 06/20/23 10:29 [facility] (Rec: 06/20/23 12:46 [facility] [id number]) Cardio Equipment Recumbent Stepper (Sci-Fit) Other too fatigued Lymphedema Treatment Manual Lymphatic Drainage Location for stella LE's, Duration 60 Comments focus on AIA pathways Lymphedema Wrapping Body Location stella LE's toes to knees Materials Coban system with padding, extra black foam anterior ankle crease, covered by Coban Lite bilateral LEs MTP's to just below knees. Other assisted patient in donning Bio[employer]lect compression tights Sequential Lymphedema Exercises Duration 8 min Comments stella LE's Compression Garment Assessment Compression Garment Assessment Details Still not able to order due to financial constraints, reports now will order 07/06/23 . Other Other circumferential measurements sequential pneumatic pump right LE during MLD left 30 min at 45 mm HG work on fibrotic tissue stella lower legs right greater than left Continue to wear compression tights as able, monitor yeast infection PT-OP-T Assessment and Plan Start: 01/10/23 16:14 Freq: Status: Active Protocol: Document 06/20/23 10:29 [facility] (Rec: 06/20/23 11:59 [facility] [id number]) Physical Therapy Assessment Goals Three Impairment impaired mobility and activity tolerance related to size of her legs Impairment uses FWW and doesn't go out of the house other than for medical appointments Short Term Goal (STG) Patient will be able to ambulate 500 ft with SPC with min assist 04/05/23: goal met STG Duration goal met Export Freight Clerk Goal (LTG) Patient will be able to ambulate at least 1000 feet with least restrictive device to allow for return to community mobility 04/18/23: goal progress, patient reports increased ease of lifting LE's, now able to get on and off treatment table on own 75% of time LTG Duration 06/12/23 Two Impairment LYmphedema life impact scale 56% Short Term Goal (STG) Decrease Lymphedema life impact scale to no greater than 40% 04/05/23: goal met STG Duration goal met Group Home Goal (LTG) Decrease lymphedema life impact scale to no greater than 25% as measure of improved activity tolerance and quality of life 04/13/23: goal progress, not fully achieved LTG Duration 06/12/23 One Impairment Lymphedema stella LE's Short Term Goal (STG) Patient to be instructed in all aspects of lymphedema care to include skin care, MLD, compression, and lymphedema exercises 04/05/23: goal met STG Duration goal met Export Freight Clerk Goal (LTG) Patient to be independent in all aspects of lymphedema care , LE circumferential measurements to be stable (no increase or decrease greater than 1 cm over the course of 1 week), and patient to obtain appropriate compression garments for stella LE lymphedema managements and possibly sequential pneumatic pump. 04/12/23: Patient is challenged by wearing adequate compression due to body size and shape and difficulty reaching, as well as financial concerns as she is currently living out of her car. LTG Duration 06/12/23 Assessment Summary Assessment Patient not able to attend PT x 2 weeks due to both her schedule and PT schedule. Skin intact. Not able to wear compression tights for 4 days after chemo due to heavy fatigue level. Was able to stay in a hotel a couple times over the past 2 weeks and use pump on those nights. Circumferential measurements increased especially right LE. Patient at high risk for complications of lymphedema. Physical Therapy Plan Frequency and Duration Frequency of Treatment 2x/Week Duration of treatment (weeks) 8 Plan of Care Start Date 04/12/23 Plan of Care End Date 06/12/23 Therapeutic Interventions Therapeutic Interventions Home Exercise Program, Lymphedema Management,Manual Therapy,Patient/Caregiver Education,Self-Care/Home Management,Therapeutic Activities,Therapeutic Exercises Next Visit Focus/Plan Next Note Type Treatment Note Next Visit Plan Continue CDT for stella lymphedema with medical complications and financial restrictions making follow- through with all aspects of self care for lymphedema difficult.
--- NOTE | 2023-06-20 16:31 | PT.OTRE ---
Current Diagnoses Lymphedema, not elsewhere classified (06/20/23) Non-pressure chronic ulcer of other part of left lower leg with fat layer exposed (06/20/23) Soft tissue disorder, unspecified (06/20/23) Difficulty in walking, not elsewhere classified (06/20/23) Visit Care Team Role Provider Type Geovani Elder DO Family Provider Non-Staff Primary Care Provider Specialty: Medical Address: [address] [place] [address] Dr. Mike De Los Santos, [place], [address] Email: Nicolás Schrader MD Attending Provider Physician Referring Provider Specialty: Wound Care Address: [address] [place] [address], [id number] Email: [email or web address] Physical Therapy Re-Evaluation PT-OP-A Visit Information Start: 01/10/23 16:14 Freq: Status: Active Protocol: Document 06/20/23 10:29 [facility] (Rec: 06/20/23 11:59 [facility] [id number]) Out-Patient Physical Therapy Visit Information Visit Information Visit Type Treatment Note Visit Start Time 10:30 Visit Stop Time 11:58 Total Visit Minutes 88 Visit Number 25 Precautions Precautions endometrial cancer, nonhealing wound left LE PT-OP-B Current Condition Start: 01/10/23 16:14 Freq: Status: Active Protocol: Document 05/24/23 15:10 [facility] (Rec: 05/24/23 16:59 [facility] [id number]) Current Condition History of Current Condition Onset Date 22 months Current Complaints stella LE lymphedema History of Current Condition was travelling and knew something was wrong with her left leg, went to ER diagnosed with cellulitis stella LE's, was in hospital 28 days. 3 days before discharge developed lymphedema. Went to [facility] wound care, did not have good experience, no recommendation for PT. Now going to wound care at [facility] and PT was recommended. Using Vaseline due to dryness in legs. Has had multiple infections since that time. Then last year having vaginal bleeding and diagnosed with endometrial cancer. Has had 3 treatments of chemo. Can't have Obgyn surgery until infection in leg healed, possiblty more chemo. Sees oncologist tomorrow Dr. Merrick Hurtado in [place] at [facility]. Prior Treatments and Tests PMH: cellulitis, lymphedema stella LE's, peripheral neuropathy, morbid obesity, hysteroscopy, chronic non- healing ulcer left LE Future Testing and Treatments Planned Preparing for Obgyn surgery for endometrial cancer. PT-OP-C Subjective Start: 01/10/23 16:14 Freq: Status: Active Protocol: Document 06/20/23 10:29 [facility] (Rec: 06/20/23 11:59 [facility] [id number]) OP-PT Subjective Patient Comments Patient Comments Had new chemo regime last , reports extreme fatigue, hasn't been able to wear compression pants for 4 days. On Tuesday having difficulty breathing (apparent side effect from chemo), had to consciously work on breathing as instructed by PT and found it helpful. Has worn same compression bandaging since last seen in PT. Has blood labs taken on . REports another side effect of this chemo is edema . Had to have car repaired so still not able to order compression wraps. Patient Reported Progress Worse PT-OP-G Mobility & Gait Start: 01/10/23 16:14 Freq: Status: Active Protocol: Document 01/11/23 07:56 [facility] (Rec: 01/11/23 16:21 [facility] [id number]) OP Mobility Evaluation Bed Mobility Supine to and from Sit mod assist for LE's Transfers Sit to Stand use of FWW with SBA OP Gait Assessment Gait Gait Assistance Required: Independent Distance (Feet) 60 Assistive Devices Assistive Device Front Wheeled Walker Orthotic/Prosthetic Devices or Brace: No Gait Deviations General Gait Pattern Decreased Stride Length, Decreased Feet Clearance, Flexed Trunk,Wide Based Gait Comments Gait Comments limited by weight of legs due to lymphedema PT-OP-J Posture/Palpation/Skin Start: 01/10/23 16:14 Freq: Status: Active Protocol: Document 01/11/23 07:56 [facility] (Rec: 01/11/23 16:21 [facility] [id number]) Skin Assessment Other Assessments Skin Assessment Comments hyperkeratosis and elephatiasis stella LE's PT-OP-K Range of Motion Start: 01/10/23 16:14 Freq: Status: Active Protocol: Document 01/11/23 07:56 [facility] (Rec: 01/11/23 16:21 [facility] [id number]) Hip Goniometric Range of Motion Hip ROM Limitations Hip ROM Limitations Swelling Comments moderate limitations Knee Goniometric Range of Motion Knee ROM Limitations Knee ROM Limitations Swelling Comments moderate limitations Ankle and Foot Goniometric Range of Motion Ankle and Foot ROM Limitations ROM Limitations Swelling Comments moderate limitations PT-OP-M Strength Start: 01/10/23 16:14 Freq: Status: Active Protocol: Document 01/11/23 07:56 [facility] (Rec: 01/11/23 16:21 [facility] [id number]) Hip Strength Hip Manual Muscle Testing stella Comments less than anti-gravity stregnth, requires assistance for legs on and off treatment table. No MMT Knee Strength Knee Manual Muscle Testing stella Comments has anti-gravity strength ext. No MMT Ankle/Foot Strength Ankle and Foot Manual Muscle Testing stella Comments has anti gravity strength. No MMT PT-OP-N Lymphedema Start: 01/10/23 16:14 Freq: Status: Active Protocol: Document 06/20/23 10:29 [facility] (Rec: 06/20/23 11:59 [facility] [id number]) Lymphedema Measurements Lower Extremity Circumference Measurements Right Affected MT Heads 26.2 cm Mid-foot 25.5 cm Medial Malleolus 32.5 cm 10 cm From Medial Malleolus 40 cm 20 cm From Medial Malleolus 57.4 cm 30 cm From Medial Malleolus 63 cm 40 cm From Medial Malleolus 75.6 cm 50 cm From Medial Malleolus 76 cm 60 cm From Medial Malleolus 74.7 cm 70 cm From Medial Malleolus 77 cm Knee Joint 74 cm Left Affected MT Heads 24.8 cm Mid-foot 25 cm Medial Malleolus 33.7 cm 10 cm From Medial Malleolus 39 cm 20 cm From Medial Malleolus 49.9 cm 30 cm From Medial Malleolus 54.3 cm 40 cm From Medial Malleolus 66.5 cm 50 cm From Medial Malleolus 71.7 cm 60 cm From Medial Malleolus 75.8 cm 70 cm From Medial Malleolus 76 cm Knee Joint 64 cm PT-OP-Q Treatments Start: 01/10/23 16:14 Freq: Status: Active Protocol: Document 06/20/23 10:29 [facility] (Rec: 06/20/23 12:46 [facility] [id number]) Cardio Equipment Recumbent Stepper (Sci-Fit) Other too fatigued Lymphedema Treatment Manual Lymphatic Drainage Location for stella LE's, Duration 60 Comments focus on AIA pathways Lymphedema Wrapping Body Location stella LE's toes to knees Materials Coban system with padding, extra black foam anterior ankle crease, covered by Coban Lite bilateral LEs MTP's to just below knees. Other assisted patient in donning Bioflect compression tights Sequential Lymphedema Exercises Duration 8 min Comments stella LE's Compression Garment Assessment Compression Garment Assessment Details Still not able to order due to financial constraints, reports now will order 07/06/23 . Other Other circumferential measurements sequential pneumatic pump right LE during MLD left 30 min at 45 mm HG work on fibrotic tissue stella lower legs right greater than left Continue to wear compression tights as able, monitor yeast infection PT-OP-T Assessment and Plan Start: 01/10/23 16:14 Freq: Status: Active Protocol: Document 06/20/23 10:29 [facility] (Rec: 06/20/23 11:59 [facility] [id number]) Physical Therapy Assessment Evaluation Complexity Clinical Presentation at Evaluation Unstable Goals Three Impairment impaired mobility and activity tolerance related to size of her legs Impairment uses FWW and doesn't go out of the house other than for medical appointments Short Term Goal (STG) Patient will be able to ambulate 500 ft with SPC with min assist 04/05/23: goal met STG Duration goal met Prison Goal (LTG) Patient will be able to ambulate at least 1000 feet with least restrictive device to allow for return to community mobility 04/18/23: goal progress, patient reports increased ease of lifting LE's, now able to get on and off treatment table on own 75% of time 06/20/23: 06/20/23: not seen x 2 weeks in PT due to patient schedule and PT schedule. Patient medical issues persist with her starting new chemo last week resulting in moderate to severe fatigue, and need to use walker instead of cane. Goal not met LTG Duration 08/20/23 Two Impairment LYmphedema life impact scale 56% Short Term Goal (STG) Decrease Lymphedema life impact scale to no greater than 40% 04/05/23: goal met STG Duration goal met Paper Machine Operator Goal (LTG) Decrease lymphedema life impact scale to no greater than 25% as measure of improved activity tolerance and quality of life 04/13/23: goal progress, not fully achieved 06/20/23: not seen x 2 weeks in PT due to patient schedule and PT schedule. Patient medical issues persist with her starting new chemo last week resulting in moderate to severe fatigue, inability to don her compression tights. Goal not met LTG Duration 08/20/23 One Impairment Lymphedema stella LE's Short Term Goal (STG) Patient to be instructed in all aspects of lymphedema care to include skin care, MLD, compression, and lymphedema exercises 04/05/23: goal met STG Duration goal met Prison Goal (LTG) Patient to be independent in all aspects of lymphedema care , LE circumferential measurements to be stable (no increase or decrease greater than 1 cm over the course of 1 week), and patient to obtain appropriate compression garments for stella LE lymphedema managements and possibly sequential pneumatic pump. 04/12/23: Patient is challenged by wearing adequate compression due to body size and shape and difficulty reaching, as well as financial concerns as she is currently living out of her car. 06/20/23:06/20/23: not seen x 2 weeks in PT due to patient schedule and PT schedule. Patient medical issues persist with her starting new chemo last week resulting in moderate to severe fatigue, with inability to don her compression tights and need to use her walker again instead of cane. Due to living out of her car she is unable to follow through with all aspects of lymphedema care. Had to have work done on her car so couldn't afford yet to order compression garments; reports will be able to . LTG Duration 08/20/23 Assessment Summary Assessment Patient not able to attend PT x 2 weeks due to both her schedule and PT schedule. Skin intact. Not able to wear compression tights for 4 days after chemo due to heavy fatigue level and has needed to go back to using walker instead of the cane this week. Was able to stay in a hotel a couple times over the past 2 weeks and use pump on those nights. Circumferential measurements increased especially right LE. Patient at high risk for complications of lymphedema due to her medical issues, homelessness with difficulty following through with all aspects of lymphedema care. Had to have work done on her car so unable to order new compression alternatives; reports she will be able to . Will benefit from further PT for lymphedema management to include skin care, manual lymphatic drainage, lymphedema exercises as well as strengthening exercises and gait training, and helping patient obtain appropriate compression garments. Physical Therapy Plan Frequency and Duration Frequency of Treatment 2x/Week Duration of treatment (weeks) 8 Plan of Care Start Date 06/20/23 Plan of Care End Date 08/20/23 Therapeutic Interventions Therapeutic Interventions Home Exercise Program, Lymphedema Management,Manual Therapy,Patient/Caregiver Education,Self-Care/Home Management,Therapeutic Activities,Therapeutic Exercises Next Visit Focus/Plan Next Note Type Treatment Note Next Visit Plan Continue CDT for stella LE lymphedema. Progress to independent self-care.
--- NOTE | 2023-06-29 14:37 | PT.OTN ---
Current Diagnoses Lymphedema, not elsewhere classified (06/29/23) Non-pressure chronic ulcer of other part of left lower leg with fat layer exposed (06/29/23) Soft tissue disorder, unspecified (06/29/23) Difficulty in walking, not elsewhere classified (06/29/23) Physical Therapy Treatment Note PT-OP-A Visit Information Start: 01/10/23 16:14 Freq: Status: Active Protocol: Document 06/29/23 10:33 [facility] (Rec: 06/29/23 11:14 [facility] [id number]) Out-Patient Physical Therapy Visit Information Visit Information Visit Type Treatment Note Visit Start Time 10:30 Visit Stop Time 11:59 Total Visit Minutes 89 Visit Number 26 Precautions Precautions endometrial cancer, nonhealing wound left LE PT-OP-B Current Condition Start: 01/10/23 16:14 Freq: Status: Active Protocol: Document 05/24/23 15:10 [facility] (Rec: 05/24/23 16:59 [facility] [id number]) Current Condition History of Current Condition Onset Date 22 months Current Complaints stella LE lymphedema History of Current Condition was travelling and knew something was wrong with her left leg, went to ER diagnosed with cellulitis stella LE's, was in hospital 28 days. 3 days before discharge developed lymphedema. Went to [facility] wound care, did not have good experience, no recommendation for PT. Now going to wound care at [facility] and PT was recommended. Using Vaseline due to dryness in legs. Has had multiple infections since that time. Then last year having vaginal bleeding and diagnosed with endometrial cancer. Has had 3 treatments of chemo. Can't have Obgyn surgery until infection in leg healed, possiblty more chemo. Sees oncologist tomorrow Dr. Merrick Hurtado in [place] at [facility]. Prior Treatments and Tests PMH: cellulitis, lymphedema stella LE's, peripheral neuropathy, morbid obesity, hysteroscopy, chronic non- healing ulcer left LE Future Testing and Treatments Planned Preparing for Obgyn surgery for endometrial cancer. PT-OP-C Subjective Start: 01/10/23 16:14 Freq: Status: Active Protocol: Document 06/20/23 10:29 [facility]AK (Rec: 06/20/23 11:59 [facility] [id number]) OP-PT Subjective Patient Comments Patient Comments Had new chemo regime last , reports extreme fatigue, hasn't been able to wear compression pants for 4 days. On Tuesday having difficulty breathing (apparent side effect from chemo), had to consciously work on breathing as instructed by PT and found it helpful. Has worn same compression bandaging since last seen in PT. Has blood labs taken on . REports another side effect of this chemo is edema . Had to have car repaired so still not able to order compression wraps. Patient Reported Progress Worse PT-OP-G Mobility & Gait Start: 01/10/23 16:14 Freq: Status: Active Protocol: Document 01/11/23 07:56 [facility] (Rec: 01/11/23 16:21 [facility] [id number]) OP Mobility Evaluation Bed Mobility Supine to and from Sit mod assist for LE's Transfers Sit to Stand use of FWW with SBA OP Gait Assessment Gait Gait Assistance Required: Independent Distance (Feet) 60 Assistive Devices Assistive Device Front Wheeled Walker Orthotic/Prosthetic Devices or Brace: No Gait Deviations General Gait Pattern Decreased Stride Length, Decreased Feet Clearance, Flexed Trunk,Wide Based Gait Comments Gait Comments limited by weight of legs due to lymphedema PT-OP-J Posture/Palpation/Skin Start: 01/10/23 16:14 Freq: Status: Active Protocol: Document 01/11/23 07:56 [facility] (Rec: 01/11/23 16:21 [facility] [id number]) Skin Assessment Other Assessments Skin Assessment Comments hyperkeratosis and elephatiasis stella LE's PT-OP-K Range of Motion Start: 01/10/23 16:14 Freq: Status: Active Protocol: Document 01/11/23 07:56 [facility] (Rec: 01/11/23 16:21 [facility] [id number]) Hip Goniometric Range of Motion Hip ROM Limitations Hip ROM Limitations Swelling Comments moderate limitations Knee Goniometric Range of Motion Knee ROM Limitations Knee ROM Limitations Swelling Comments moderate limitations Ankle and Foot Goniometric Range of Motion Ankle and Foot ROM Limitations ROM Limitations Swelling Comments moderate limitations PT-OP-M Strength Start: 01/10/23 16:14 Freq: Status: Active Protocol: Document 01/11/23 07:56 [facility] (Rec: 01/11/23 16:21 [facility] [id number]) Hip Strength Hip Manual Muscle Testing stella Comments less than anti-gravity stregnth, requires assistance for legs on and off treatment table. No MMT Knee Strength Knee Manual Muscle Testing stella Comments has anti-gravity strength ext. No MMT Ankle/Foot Strength Ankle and Foot Manual Muscle Testing stella Comments has anti gravity strength. No MMT PT-OP-N Lymphedema Start: 01/10/23 16:14 Freq: Status: Active Protocol: Document 06/29/23 10:33 [facility] (Rec: 06/29/23 11:14 [facility] [id number]) Lymphedema Measurements Lower Extremity Circumference Measurements Right Affected MT Heads 26 cm Mid-foot 24.6 cm Medial Malleolus 32.4 cm 10 cm From Medial Malleolus 40.6 cm 20 cm From Medial Malleolus 57.2 cm 30 cm From Medial Malleolus 64.9 cm 40 cm From Medial Malleolus 73 cm 50 cm From Medial Malleolus 79 cm 60 cm From Medial Malleolus 74 cm 70 cm From Medial Malleolus 77.8 cm Knee Joint 79 cm Left Affected MT Heads 24.8 cm Mid-foot 24.8 cm Medial Malleolus 32.8 cm 10 cm From Medial Malleolus 37.4 cm 20 cm From Medial Malleolus 49.8 cm 30 cm From Medial Malleolus 57.7 cm 40 cm From Medial Malleolus 69 cm 50 cm From Medial Malleolus 74 cm 60 cm From Medial Malleolus 75.9 cm 70 cm From Medial Malleolus 79 cm Knee Joint 68 cm PT-OP-Q Treatments Start: 01/10/23 16:14 Freq: Status: Active Protocol: Document 06/29/23 10:33 [facility] (Rec: 06/29/23 11:14 [facility] [id number]) Cardio Equipment Recumbent Stepper (Sci-Fit) Duration (Minutes) 6 Resistance 1 Seat Position 10 Lymphedema Treatment Manual Lymphatic Drainage Location for stella LE's, Duration 60 Comments focus on AIA pathways Lymphedema Wrapping Body Location stella LE's toes to knees Materials Right LE: Coban system with padding, extra black foam anterior ankle crease, covered by Coban Lite bilateral LEs MTP's to just below knees. Blue antibacterial foam dressing over open wound covered by 2x2 and Kerlix. Left LE: size F Tubigrip left foot and ankle with black foam over anterior ankle crease, Ready wrap left ankle to knee. Patient laundering Bioflect compression tights so not donned today. Other No tights today, laundering Sequential Lymphedema Exercises Comments home Compression Garment Assessment Compression Garment Assessment Details Still not able to order due to financial constraints, reports now will order 07/06/23 . Other Other circumferential measurements sequential pneumatic pump right LE during MLD left 30 min at 45 mm HG work on fibrotic tissue stella lower legs right greater than left Continue to wear compression tights as able, monitor yeast infection PT-OP-T Assessment and Plan Start: 01/10/23 16:14 Freq: Status: Active Protocol: Document 06/29/23 10:33 [facility] (Rec: 06/29/23 11:14 [facility] [id number]) Physical Therapy Assessment Evaluation Complexity Clinical Presentation at Evaluation Unstable Goals Three Impairment impaired mobility and activity tolerance related to size of her legs Impairment uses FWW and doesn't go out of the house other than for medical appointments Short Term Goal (STG) Patient will be able to ambulate 500 ft with SPC with min assist 04/05/23: goal met STG Duration goal met B[employer]mason [employer]or Goal (LTG) Patient will be able to ambulate at least 1000 feet with least restrictive device to allow for return to community mobility 04/18/23: goal progress, patient reports increased ease of lifting LE's, now able to get on and off treatment table on own 75% of time 06/20/23: 06/20/23: not seen x 2 weeks in PT due to patient schedule and PT schedule. Patient medical issues persist with her starting new chemo last week resulting in moderate to severe fatigue, and need to use walker instead of cane. Goal not met LTG Duration 08/20/23 Two Impairment LYmphedema life impact scale 56% Short Term Goal (STG) Decrease Lymphedema life impact scale to no greater than 40% 04/05/23: goal met STG Duration goal met Prison Goal (LTG) Decrease lymphedema life impact scale to no greater than 25% as measure of improved activity tolerance and quality of life 04/13/23: goal progress, not fully achieved 06/20/23: not seen x 2 weeks in PT due to patient schedule and PT schedule. Patient medical issues persist with her starting new chemo last week resulting in moderate to severe fatigue, inability to don her compression tights. Goal not met LTG Duration 08/20/23 One Impairment Lymphedema stella LE's Short Term Goal (STG) Patient to be instructed in all aspects of lymphedema care to include skin care, MLD, compression, and lymphedema exercises 04/05/23: goal met STG Duration goal met B[employer] Contractor Goal (LTG) Patient to be independent in all aspects of lymphedema care , LE circumferential measurements to be stable (no increase or decrease greater than 1 cm over the course of 1 week), and patient to obtain appropriate compression garments for stella LE lymphedema managements and possibly sequential pneumatic pump. 04/12/23: Patient is challenged by wearing adequate compression due to body size and shape and difficulty reaching, as well as financial concerns as she is currently living out of her car. 06/20/23:06/20/23: not seen x 2 weeks in PT due to patient schedule and PT schedule. Patient medical issues persist with her starting new chemo last week resulting in moderate to severe fatigue, with inability to don her compression tights and need to use her walker again instead of cane. Due to living out of her car she is unable to follow through with all aspects of lymphedema care. Had to have work done on her car so couldn't afford yet to order compression garments; reports will be able to . LTG Duration 08/20/23 Assessment Summary Assessment Patient measurements toes to upper calf stable or dec, inc in knee and thighs likely due to not wearing compression tights today; laundering. Open wound crease of ankle right worsened today; dressed with antibacterial foam. Physical Therapy Plan Frequency and Duration Frequency of Treatment 2x/Week Duration of treatment (weeks) 8 Plan of Care Start Date 06/20/23 Plan of Care End Date 08/20/23 Therapeutic Interventions Therapeutic Interventions Home Exercise Program, Lymphedema Management,Manual Therapy,Patient/Caregiver Education,Self-Care/Home Management,Therapeutic Activities,Therapeutic Exercises Next Visit Focus/Plan Next Note Type Treatment Note Next Visit Plan Continue CDT for stella LE lymphedema. Progress to independent self-care. Assess response to wearing Tubigrip and Ready wrap left LE
--- NOTE | 2023-07-05 16:36 | PT.OTN ---
Current Diagnoses Lymphedema, not elsewhere classified (07/05/23) Non-pressure chronic ulcer of other part of left lower leg with fat layer exposed (07/05/23) Soft tissue disorder, unspecified (07/05/23) Difficulty in walking, not elsewhere classified (07/05/23) Physical Therapy Treatment Note PT-OP-A Visit Information Start: 01/10/23 16:14 Freq: Status: Active Protocol: Document 07/05/23 08:54 SAK (Rec: 07/05/23 09:24 SAK [id number]) Out-Patient Physical Therapy Visit Information Visit Information Visit Type Treatment Note Visit Start Time 08:46 Visit Stop Time 10:15 Total Visit Minutes 89 Visit Number 27 Precautions Precautions endometrial cancer, nonhealing wound left LE PT-OP-B Current Condition Start: 01/10/23 16:14 Freq: Status: Active Protocol: Document 05/24/23 15:10 SAK (Rec: 05/24/23 16:59 SAK [id number]) Current Condition History of Current Condition Onset Date 22 months Current Complaints stella LE lymphedema History of Current Condition was travelling and knew something was wrong with her left leg, went to ER diagnosed with cellulitis stella LE's, was in hospital 28 days. 3 days before discharge developed lymphedema. Went to [facility] wound care, did not have good experience, no recommendation for PT. Now going to wound care at [facility] and PT was recommended. Using Vaseline due to dryness in legs. Has had multiple infections since that time. Then last year having vaginal bleeding and diagnosed with endometrial cancer. Has had 3 treatments of chemo. Can't have Obgyn surgery until infection in leg healed, possiblty more chemo. Sees oncologist tomorrow Dr. Merrick Hurtado in [place] at [facility]. Prior Treatments and Tests PMH: cellulitis, lymphedema stella LE's, peripheral neuropathy, morbid obesity, hysteroscopy, chronic non- healing ulcer left LE Future Testing and Treatments Planned Preparing for Obgyn surgery for endometrial cancer. PT-OP-C Subjective Start: 01/10/23 16:14 Freq: Status: Active Protocol: Document 06/29/23 10:33 SAK (Rec: 06/29/23 14:38 SAK [id number]) OP-PT Subjective Patient Comments Patient Comments Patient reports having more difficulty doing exercises and applying compression tights due to fatigue from new chemo. PT-OP-G Mobility & Gait Start: 01/10/23 16:14 Freq: Status: Active Protocol: Document 01/11/23 07:56 [facility] (Rec: 01/11/23 16:21 [facility] [id number]) OP Mobility Evaluation Bed Mobility Supine to and from Sit mod assist for LE's Transfers Sit to Stand use of FWW with SBA OP Gait Assessment Gait Gait Assistance Required: Independent Distance (Feet) 60 Assistive Devices Assistive Device Front Wheeled Walker Orthotic/Prosthetic Devices or Brace: No Gait Deviations General Gait Pattern Decreased Stride Length, Decreased Feet Clearance, Flexed Trunk,Wide Based Gait Comments Gait Comments limited by weight of legs due to lymphedema PT-OP-J Posture/Palpation/Skin Start: 01/10/23 16:14 Freq: Status: Active Protocol: Document 01/11/23 07:56 [facility] (Rec: 01/11/23 16:21 [facility] [id number]) Skin Assessment Other Assessments Skin Assessment Comments hyperkeratosis and elephatiasis stella LE's PT-OP-K Range of Motion Start: 01/10/23 16:14 Freq: Status: Active Protocol: Document 01/11/23 07:56 [facility] (Rec: 01/11/23 16:21 [facility] [id number]) Hip Goniometric Range of Motion Hip ROM Limitations Hip ROM Limitations Swelling Comments moderate limitations Knee Goniometric Range of Motion Knee ROM Limitations Knee ROM Limitations Swelling Comments moderate limitations Ankle and Foot Goniometric Range of Motion Ankle and Foot ROM Limitations ROM Limitations Swelling Comments moderate limitations PT-OP-M Strength Start: 01/10/23 16:14 Freq: Status: Active Protocol: Document 01/11/23 07:56 [facility] (Rec: 01/11/23 16:21 [facility] [id number]) Hip Strength Hip Manual Muscle Testing stella Comments less than anti-gravity stregnth, requires assistance for legs on and off treatment table. No MMT Knee Strength Knee Manual Muscle Testing stella Comments has anti-gravity strength ext. No MMT Ankle/Foot Strength Ankle and Foot Manual Muscle Testing stella Comments has anti gravity strength. No MMT PT-OP-N Lymphedema Start: 01/10/23 16:14 Freq: Status: Active Protocol: Document 07/05/23 08:54 [facility] (Rec: 07/05/23 09:24 [facility] [id number]) Lymphedema Measurements Lower Extremity Circumference Measurements Right Affected MT Heads 25.5 cm Mid-foot 25.2 cm Medial Malleolus 31.2 cm 10 cm From Medial Malleolus 36.9 cm 20 cm From Medial Malleolus 54.6 cm 30 cm From Medial Malleolus 63.7 cm 40 cm From Medial Malleolus 75.2 cm 50 cm From Medial Malleolus 77.3 cm 60 cm From Medial Malleolus 76.5 cm 70 cm From Medial Malleolus 80.5 cm Knee Joint 77.3 cm Left Affected MT Heads 26.2 cm Mid-foot 25 cm Medial Malleolus 32.7 cm 10 cm From Medial Malleolus 39.9 cm 20 cm From Medial Malleolus 51.6 cm 30 cm From Medial Malleolus 60.7 cm 40 cm From Medial Malleolus 63 cm 50 cm From Medial Malleolus 74.9 cm 60 cm From Medial Malleolus 76 cm 70 cm From Medial Malleolus 85.3 cm Knee Joint 63 cm PT-OP-Q Treatments Start: 01/10/23 16:14 Freq: Status: Active Protocol: Document 07/05/23 08:54 [facility] (Rec: 07/05/23 09:24 [facility] [id number]) Cardio Equipment Recumbent Stepper (Sci-Fit) Duration (Minutes) 10 Resistance 1 Seat Position 10 Lymphedema Treatment Manual Lymphatic Drainage Location for stella LE's, Duration 60 Comments focus on AIA pathways Lymphedema Wrapping Body Location stella LE's toes to knees Materials Right LE: Coban system with padding, extra black foam anterior ankle crease, covered by Coban Lite bilateral LEs MTP's to just below knees. Blue antibacterial foam dressing over open wound covered by 2x2 and Kerlix. Left LE: size f Tubigrip left foot, size J Tubigrip ankle to knee with black foam over anterior ankle crease, Ready wrap left ankle to knee. Other Bioflect tights Sequential Lymphedema Exercises Comments home Compression Garment Assessment Compression Garment Assessment Details ordering new compression wraps for right lower leg and bilateral knees. Other Other circumferential measurements sequential pneumatic pump right LE during MLD left 30 min at 45 mm HG work on fibrotic tissue stella lower legs right greater than left Continue to wear compression tights as able, monitor yeast infection PT-OP-T Assessment and Plan Start: 01/10/23 16:14 Freq: Status: Active Protocol: Document 07/05/23 08:54 [facility] (Rec: 07/05/23 09:24 [facility] [id number]) Physical Therapy Assessment Goals Three Impairment impaired mobility and activity tolerance related to size of her legs Impairment uses FWW and doesn't go out of the house other than for medical appointments Short Term Goal (STG) Patient will be able to ambulate 500 ft with SPC with min assist 04/05/23: goal met STG Duration goal met Assisted Goal (LTG) Patient will be able to ambulate at least 1000 feet with least restrictive device to allow for return to community mobility 04/18/23: goal progress, patient reports increased ease of lifting LE's, now able to get on and off treatment table on own 75% of time 06/20/23: 06/20/23: not seen x 2 weeks in PT due to patient schedule and PT schedule. Patient medical issues persist with her starting new chemo last week resulting in moderate to severe fatigue, and need to use walker instead of cane. Goal not met LTG Duration 08/20/23 Two Impairment LYmphedema life impact scale 56% Short Term Goal (STG) Decrease Lymphedema life impact scale to no greater than 40% 04/05/23: goal met STG Duration goal met [employer]ing [employer] Goal (LTG) Decrease lymphedema life impact scale to no greater than 25% as measure of improved activity tolerance and quality of life 04/13/23: goal progress, not fully achieved 06/20/23: not seen x 2 weeks in PT due to patient schedule and PT schedule. Patient medical issues persist with her starting new chemo last week resulting in moderate to severe fatigue, inability to don her compression tights. Goal not met LTG Duration 08/20/23 One Impairment Lymphedema stella LE's Short Term Goal (STG) Patient to be instructed in all aspects of lymphedema care to include skin care, MLD, compression, and lymphedema exercises 04/05/23: goal met STG Duration goal met Assisted Goal (LTG) Patient to be independent in all aspects of lymphedema care , LE circumferential measurements to be stable (no increase or decrease greater than 1 cm over the course of 1 week), and patient to obtain appropriate compression garments for stella LE lymphedema managements and possibly sequential pneumatic pump. 04/12/23: Patient is challenged by wearing adequate compression due to body size and shape and difficulty reaching, as well as financial concerns as she is currently living out of her car. 06/20/23:06/20/23: not seen x 2 weeks in PT due to patient schedule and PT schedule. Patient medical issues persist with her starting new chemo last week resulting in moderate to severe fatigue, with inability to don her compression tights and need to use her walker again instead of cane. Due to living out of her car she is unable to follow through with all aspects of lymphedema care. Had to have work done on her car so couldn't afford yet to order compression garments; reports will be able to . LTG Duration 08/20/23 Assessment Summary Assessment Open wound healing well anerior ankle crease right LE, Circumferntial measurements variable; decreased right lower leg, inc at knee and thigh due to not wearing Bioflect tights today; no time prior to PT. On left also not wearing Ready Wrap due to time constraints this am with inc measurements lower leg, dec at knee compared to when last measured. Required use of FWW today but able to inc time on Sci-Fit to 10 min. Anticipate lower juanita next week after chemo this . Physical Therapy Plan Frequency and Duration Frequency of Treatment 2x/Week Duration of treatment (weeks) 8 Plan of Care Start Date 06/20/23 Plan of Care End Date 08/20/23 Therapeutic Interventions Therapeutic Interventions Home Exercise Program, Lymphedema Management,Manual Therapy,Patient/Caregiver Education,Self-Care/Home Management,Therapeutic Activities,Therapeutic Exercises Next Visit Focus/Plan Next Note Type Treatment Note Next Visit Plan Continue CDT for stella LE lymphedema. Progress to independent self-care. Assess response to wearing Tubigrip and Ready wrap left LE
--- NOTE | 2023-07-26 16:26 | PT.OTN ---
Current Diagnoses Lymphedema, not elsewhere classified (07/26/23) Non-pressure chronic ulcer of other part of left lower leg with fat layer exposed (07/26/23) Soft tissue disorder, unspecified (07/26/23) Difficulty in walking, not elsewhere classified (07/26/23) Physical Therapy Treatment Note PT-OP-A Visit Information Start: 01/10/23 16:14 Freq: Status: Active Protocol: Document 07/26/23 13:56 SAK (Rec: 07/26/23 15:10 [facility] [id number]) Out-Patient Physical Therapy Visit Information Visit Information Visit Type Treatment Note Visit Start Time 13:56 Visit Number 28 Precautions Precautions endometrial cancer, nonhealing wound left LE PT-OP-B Current Condition Start: 01/10/23 16:14 Freq: Status: Active Protocol: Document 05/24/23 15:10 SAK (Rec: 05/24/23 16:59 SAK [id number]) Current Condition History of Current Condition Onset Date 22 months Current Complaints stella LE lymphedema History of Current Condition was travelling and knew something was wrong with her left leg, went to ER diagnosed with cellulitis stella LE's, was in hospital 28 days. 3 days before discharge developed lymphedema. Went to [facility] wound care, did not have good experience, no recommendation for PT. Now going to wound care at [facility] and PT was recommended. Using Vaseline due to dryness in legs. Has had multiple infections since that time. Then last year having vaginal bleeding and diagnosed with endometrial cancer. Has had 3 treatments of chemo. Can't have Obgyn surgery until infection in leg healed, possiblty more chemo. Sees oncologist tomorrow Dr. Merrick Hurtado in [place] at [facility]. Prior Treatments and Tests PMH: cellulitis, lymphedema stella LE's, peripheral neuropathy, morbid obesity, hysteroscopy, chronic non- healing ulcer left LE Future Testing and Treatments Planned Preparing for Obgyn surgery for endometrial cancer. PT-OP-C Subjective Start: 01/10/23 16:14 Freq: Status: Active Protocol: Document 07/26/23 13:56 SAK (Rec: 07/26/23 15:10 SAK [id number]) OP-PT Subjective Patient Comments Patient Comments Got her compression garments for lower legs and knees, is going to order foot garments. Got sores anterior bilateral ankles since last seen, feels size of legs has increased. Bad news today that new chemo doctor wants to do with her is not currently available. Has been wearing compression wrap left, just got wrap for right and hasn't worn yet, feels leg has gotten bigger. Forgot to bring wrap for right lower leg into PT today. PT-OP-G Mobility & Gait Start: 01/10/23 16:14 Freq: Status: Active Protocol: Document 01/11/23 07:56 [facility] (Rec: 01/11/23 16:21 [facility] [id number]) OP Mobility Evaluation Bed Mobility Supine to and from Sit mod assist for LE's Transfers Sit to Stand use of FWW with SBA OP Gait Assessment Gait Gait Assistance Required: Independent Distance (Feet) 60 Assistive Devices Assistive Device Front Wheeled Walker Orthotic/Prosthetic Devices or Brace: No Gait Deviations General Gait Pattern Decreased Stride Length, Decreased Feet Clearance, Flexed Trunk,Wide Based Gait Comments Gait Comments limited by weight of legs due to lymphedema PT-OP-J Posture/Palpation/Skin Start: 01/10/23 16:14 Freq: Status: Active Protocol: Document 01/11/23 07:56 [facility] (Rec: 01/11/23 16:21 [facility] [id number]) Skin Assessment Other Assessments Skin Assessment Comments hyperkeratosis and elephatiasis stella LE's PT-OP-K Range of Motion Start: 01/10/23 16:14 Freq: Status: Active Protocol: Document 01/11/23 07:56 [facility] (Rec: 01/11/23 16:21 [facility] [id number]) Hip Goniometric Range of Motion Hip ROM Limitations Hip ROM Limitations Swelling Comments moderate limitations Knee Goniometric Range of Motion Knee ROM Limitations Knee ROM Limitations Swelling Comments moderate limitations Ankle and Foot Goniometric Range of Motion Ankle and Foot ROM Limitations ROM Limitations Swelling Comments moderate limitations PT-OP-M Strength Start: 01/10/23 16:14 Freq: Status: Active Protocol: Document 01/11/23 07:56 [facility] (Rec: 01/11/23 16:21 [facility] [id number]) Hip Strength Hip Manual Muscle Testing stella Comments less than anti-gravity stregnth, requires assistance for legs on and off treatment table. No MMT Knee Strength Knee Manual Muscle Testing stella Comments has anti-gravity strength ext. No MMT Ankle/Foot Strength Ankle and Foot Manual Muscle Testing stella Comments has anti gravity strength. No MMT PT-OP-N Lymphedema Start: 01/10/23 16:14 Freq: Status: Active Protocol: Document 07/26/23 13:56 [facility] (Rec: 07/26/23 15:10 [facility] [id number]) Lymphedema Measurements Lower Extremity Circumference Measurements Right Affected MT Heads 26.1 cm Mid-foot 26.2 cm Medial Malleolus 36.9 cm 10 cm From Medial Malleolus 62.7 cm 20 cm From Medial Malleolus 71.3 cm 30 cm From Medial Malleolus 72.5 cm 40 cm From Medial Malleolus 76.7 cm 50 cm From Medial Malleolus 73.7 cm 60 cm From Medial Malleolus 77.8 cm 70 cm From Medial Malleolus 82.5 cm Knee Joint 72.5 cm - 16.5 distance heel to MTP Left Affected MT Heads 24.8 cm Mid-foot 27.1 cm Medial Malleolus 38.3 cm 10 cm From Medial Malleolus 38.3 cm 20 cm From Medial Malleolus 56.3 cm 30 cm From Medial Malleolus 59.2 cm 40 cm From Medial Malleolus 62 cm 50 cm From Medial Malleolus 70 cm 60 cm From Medial Malleolus 73.8 cm 70 cm From Medial Malleolus 79.2 cm Knee Joint 61.9 cm - 16.5 cm heel to first MTP PT-OP-Q Treatments Start: 01/10/23 16:14 Freq: Status: Active Protocol: Document 07/26/23 13:56 [facility] (Rec: 07/26/23 16:26 [facility] [id number]) Lymphedema Treatment Manual Lymphatic Drainage Location for stella LE's, Duration 60 Comments focus on AIA pathways sequential pneumatic pump on opposite side 40 mm Hg Lymphedema Wrapping Body Location stella LE's toes to knees Materials Right LE: Coban system with padding, extra black foam anterior ankle crease, covered by Coban Lite MTP to just below knees. Blue antibacterial foam dressing over open wound covered by 2x2 and Kerlix. Ready wrap applied to knee Left LE: size J Tubigrip ankle to knee with black foam over anterior ankle crease, Ready wrap left ankle to knee, and ready wrap knee applied Other education of patient in correct fit of knee ready wraps Sequential Lymphedema Exercises Comments Sci-Fit x 10 min L1 Compression Garment Assessment Compression Garment Assessment Details Good fit knee components and left lower leg Ready Wrap. Patient did not bring Ready wrap for right lower leg; forgot Patient Education Other importance of consistent compression, skin checks PT-OP-T Assessment and Plan Start: 01/10/23 16:14 Freq: Status: Active Protocol: Document 07/26/23 13:56 [facility] (Rec: 07/26/23 15:10 [facility] [id number]) Physical Therapy Assessment Goals Three Impairment impaired mobility and activity tolerance related to size of her legs Impairment uses FWW and doesn't go out of the house other than for medical appointments Short Term Goal (STG) Patient will be able to ambulate 500 ft with SPC with min assist 04/05/23: goal met STG Duration goal met Unhairer Goal (LTG) Patient will be able to ambulate at least 1000 feet with least restrictive device to allow for return to community mobility 04/18/23: goal progress, patient reports increased ease of lifting LE's, now able to get on and off treatment table on own 75% of time 06/20/23: 06/20/23: not seen x 2 weeks in PT due to patient schedule and PT schedule. Patient medical issues persist with her starting new chemo last week resulting in moderate to severe fatigue, and need to use walker instead of cane. Goal not met LTG Duration 08/20/23 Two Impairment LYmphedema life impact scale 56% Short Term Goal (STG) Decrease Lymphedema life impact scale to no greater than 40% 04/05/23: goal met STG Duration goal met Longterm Goal (LTG) Decrease lymphedema life impact scale to no greater than 25% as measure of improved activity tolerance and quality of life 04/13/23: goal progress, not fully achieved 06/20/23: not seen x 2 weeks in PT due to patient schedule and PT schedule. Patient medical issues persist with her starting new chemo last week resulting in moderate to severe fatigue, inability to don her compression tights. Goal not met LTG Duration 08/20/23 One Impairment Lymphedema stella LE's Short Term Goal (STG) Patient to be instructed in all aspects of lymphedema care to include skin care, MLD, compression, and lymphedema exercises 04/05/23: goal met STG Duration goal met Unhairer Goal (LTG) Patient to be independent in all aspects of lymphedema care , LE circumferential measurements to be stable (no increase or decrease greater than 1 cm over the course of 1 week), and patient to obtain appropriate compression garments for stella LE lymphedema managements and possibly sequential pneumatic pump. 04/12/23: Patient is challenged by wearing adequate compression due to body size and shape and difficulty reaching, as well as financial concerns as she is currently living out of her car. 06/20/23:06/20/23: not seen x 2 weeks in PT due to patient schedule and PT schedule. Patient medical issues persist with her starting new chemo last week resulting in moderate to severe fatigue, with inability to don her compression tights and need to use her walker again instead of cane. Due to living out of her car she is unable to follow through with all aspects of lymphedema care. Had to have work done on her car so couldn't afford yet to order compression garments; reports will be able to . LTG Duration 08/20/23 Assessment Summary Assessment Significant increase circumferential measurements right LE, no compression on yet today, hasn't been bandaged. Patient overwhelmed with medical needs. PT stressed importance of compression consistently during day, check skin and fit daily, make adjustments as needed. May wear compression garments at night if circumference increases without wearing at night and has checked skin to assure no pressure points. Physical Therapy Plan Frequency and Duration Frequency of Treatment 2x/Week Duration of treatment (weeks) 8 Plan of Care Start Date 06/20/23 Plan of Care End Date 08/20/23 Therapeutic Interventions Therapeutic Interventions Home Exercise Program, Lymphedema Management,Manual Therapy,Patient/Caregiver Education,Self-Care/Home Management,Therapeutic Activities,Therapeutic Exercises Next Visit Focus/Plan Next Note Type Treatment Note Next Visit Plan Continue CDT for stella LE lymphedema. Progress to independent self-care.
--- NOTE | 2023-07-28 14:00 | PT.OTN ---
Current Diagnoses Lymphedema, not elsewhere classified (07/28/23) Non-pressure chronic ulcer of other part of left lower leg with fat layer exposed (07/28/23) Soft tissue disorder, unspecified (07/28/23) Difficulty in walking, not elsewhere classified (07/28/23) Physical Therapy Treatment Note PT-OP-A Visit Information Start: 01/10/23 16:14 Freq: Status: Active Protocol: Document 07/28/23 13:49 [facility] (Rec: 07/28/23 14:32 [facility] [id number]) Out-Patient Physical Therapy Visit Information Visit Information Visit Type Treatment Note Visit Start Time 13:49 Visit Stop Time 15:14 Total Visit Minutes 85 Visit Number 29 Precautions Precautions endometrial cancer, nonhealing wound left LE PT-OP-B Current Condition Start: 01/10/23 16:14 Freq: Status: Active Protocol: Document 05/24/23 15:10 [facility] (Rec: 05/24/23 16:59 [facility] [id number]) Current Condition History of Current Condition Onset Date 22 months Current Complaints stella LE lymphedema History of Current Condition was travelling and knew something was wrong with her left leg, went to ER diagnosed with cellulitis stella LE's, was in hospital 28 days. 3 days before discharge developed lymphedema. Went to [facility] wound care, did not have good experience, no recommendation for PT. Now going to wound care at [facility] and PT was recommended. Using Vaseline due to dryness in legs. Has had multiple infections since that time. Then last year having vaginal bleeding and diagnosed with endometrial cancer. Has had 3 treatments of chemo. Can't have Obgyn surgery until infection in leg healed, possiblty more chemo. Sees oncologist tomorrow Dr. Merrick Hurtado in [place] at [facility]. Prior Treatments and Tests PMH: cellulitis, lymphedema stella LE's, peripheral neuropathy, morbid obesity, hysteroscopy, chronic non- healing ulcer left LE Future Testing and Treatments Planned Preparing for Obgyn surgery for endometrial cancer. PT-OP-C Subjective Start: 01/10/23 16:14 Freq: Status: Active Protocol: Document 07/28/23 13:49 [facility]AK (Rec: 07/28/23 14:32 [facility]AK [id number]) OP-PT Subjective Patient Comments Patient Comments Tolerated compression wraps on knees well, states had to tighten them. got compression alternative wrap for right LE but hasn't tried on yet. PT-OP-G Mobility & Gait Start: 01/10/23 16:14 Freq: Status: Active Protocol: Document 01/11/23 07:56 [facility] (Rec: 01/11/23 16:21 [facility] [id number]) OP Mobility Evaluation Bed Mobility Supine to and from Sit mod assist for LE's Transfers Sit to Stand use of FWW with SBA OP Gait Assessment Gait Gait Assistance Required: Independent Distance (Feet) 60 Assistive Devices Assistive Device Front Wheeled Walker Orthotic/Prosthetic Devices or Brace: No Gait Deviations General Gait Pattern Decreased Stride Length, Decreased Feet Clearance, Flexed Trunk,Wide Based Gait Comments Gait Comments limited by weight of legs due to lymphedema PT-OP-J Posture/Palpation/Skin Start: 01/10/23 16:14 Freq: Status: Active Protocol: Document 01/11/23 07:56 [facility] (Rec: 01/11/23 16:21 [facility] [id number]) Skin Assessment Other Assessments Skin Assessment Comments hyperkeratosis and elephatiasis stella LE's PT-OP-K Range of Motion Start: 01/10/23 16:14 Freq: Status: Active Protocol: Document 01/11/23 07:56 [facility] (Rec: 01/11/23 16:21 [facility] [id number]) Hip Goniometric Range of Motion Hip ROM Limitations Hip ROM Limitations Swelling Comments moderate limitations Knee Goniometric Range of Motion Knee ROM Limitations Knee ROM Limitations Swelling Comments moderate limitations Ankle and Foot Goniometric Range of Motion Ankle and Foot ROM Limitations ROM Limitations Swelling Comments moderate limitations PT-OP-M Strength Start: 01/10/23 16:14 Freq: Status: Active Protocol: Document 01/11/23 07:56 [facility] (Rec: 01/11/23 16:21 [facility] [id number]) Hip Strength Hip Manual Muscle Testing stella Comments less than anti-gravity stregnth, requires assistance for legs on and off treatment table. No MMT Knee Strength Knee Manual Muscle Testing stella Comments has anti-gravity strength ext. No MMT Ankle/Foot Strength Ankle and Foot Manual Muscle Testing stella Comments has anti gravity strength. No MMT PT-OP-N Lymphedema Start: 01/10/23 16:14 Freq: Status: Active Protocol: Document 07/28/23 13:49 [facility] (Rec: 07/28/23 14:32 [facility] [id number]) Lymphedema Measurements Lower Extremity Circumference Measurements Right Affected MT Heads 25.4 cm Mid-foot 24.9 cm Medial Malleolus 36.3 cm 10 cm From Medial Malleolus 40.8 cm 20 cm From Medial Malleolus 59.9 cm 30 cm From Medial Malleolus 68.8 cm 40 cm From Medial Malleolus 70.8 cm 50 cm From Medial Malleolus 73.5 cm 60 cm From Medial Malleolus 75 cm 70 cm From Medial Malleolus 78 cm Knee Joint 70.2 cm Left Affected MT Heads 23 cm Mid-foot 27 cm Medial Malleolus 34.9 cm 10 cm From Medial Malleolus 39.8 cm 20 cm From Medial Malleolus 50 cm 30 cm From Medial Malleolus 55.4 cm 40 cm From Medial Malleolus 62.3 cm 50 cm From Medial Malleolus 69.3 cm 60 cm From Medial Malleolus 73.6 cm 70 cm From Medial Malleolus 77.8 cm Knee Joint 62.3 cm PT-OP-Q Treatments Start: 01/10/23 16:14 Freq: Status: Active Protocol: Document 07/28/23 13:49 [facility] (Rec: 07/28/23 14:32 [facility] [id number]) Cardio Equipment Recumbent Stepper (Sci-Fit) Duration (Minutes) 10 Resistance 1 Seat Position 10 Other to facilitate lymphatic flow Lymphedema Treatment Manual Lymphatic Drainage Location for stella LE's, Duration 60 Comments focus on AIA pathways sequential pneumatic pump on opposite side 40 mm Hg Lymphedema Wrapping Body Location stella LE's toes to knees Materials Right LE: Coban system with padding, extra black foam anterior ankle crease, covered by Coban Lite MTP to just below knees. Blue antibacterial foam dressing over open wound covered by 2x2 and Kerlix. Ready wrap applied to knee Left LE: size J Tubigrip ankle to knee with black foam over anterior ankle crease, Ready wrap left ankle to knee, and ready wrap knee applied Other education of patient in correct fit of knee ready wraps Sequential Lymphedema Exercises Comments Sci-Fit x 10 min L1 Compression Garment Assessment Compression Garment Assessment Details Good fit knee wraps and left lower leg Ready Wrap. Wrap for right LE not long or large enough; didn't order same product as for left as discussed. Other Other circumferential measurements sequential pneumatic pump right LE during MLD left 30 min at 45 mm HG work on fibrotic tissue stella lower legs right greater than left Continue to wear compression tights as able, monitor for yeast infection PT-OP-T Assessment and Plan Start: 01/10/23 16:14 Freq: Status: Active Protocol: Document 07/28/23 13:49 [facility] (Rec: 07/28/23 14:32 [facility] [id number]) Physical Therapy Assessment Goals Three Impairment impaired mobility and activity tolerance related to size of her legs Impairment uses FWW and doesn't go out of the house other than for medical appointments Short Term Goal (STG) Patient will be able to ambulate 500 ft with SPC with min assist 04/05/23: goal met STG Duration goal met Therapist Goal (LTG) Patient will be able to ambulate at least 1000 feet with least restrictive device to allow for return to community mobility 04/18/23: goal progress, patient reports increased ease of lifting LE's, now able to get on and off treatment table on own 75% of time 06/20/23: 06/20/23: not seen x 2 weeks in PT due to patient schedule and PT schedule. Patient medical issues persist with her starting new chemo last week resulting in moderate to severe fatigue, and need to use walker instead of cane. Goal not met LTG Duration 08/20/23 Two Impairment LYmphedema life impact scale 56% Short Term Goal (STG) Decrease Lymphedema life impact scale to no greater than 40% 04/05/23: goal met STG Duration goal met [facility]it[facility]iary Goal (LTG) Decrease lymphedema life impact scale to no greater than 25% as measure of improved activity tolerance and quality of life 04/13/23: goal progress, not fully achieved 06/20/23: not seen x 2 weeks in PT due to patient schedule and PT schedule. Patient medical issues persist with her starting new chemo last week resulting in moderate to severe fatigue, inability to don her compression tights. Goal not met LTG Duration 08/20/23 One Impairment Lymphedema stella LE's Short Term Goal (STG) Patient to be instructed in all aspects of lymphedema care to include skin care, MLD, compression, and lymphedema exercises 04/05/23: goal met STG Duration goal met Therapist Goal (LTG) Patient to be independent in all aspects of lymphedema care , LE circumferential measurements to be stable (no increase or decrease greater than 1 cm over the course of 1 week), and patient to obtain appropriate compression garments for stella LE lymphedema managements and possibly sequential pneumatic pump. 04/12/23: Patient is challenged by wearing adequate compression due to body size and shape and difficulty reaching, as well as financial concerns as she is currently living out of her car. 06/20/23:06/20/23: not seen x 2 weeks in PT due to patient schedule and PT schedule. Patient medical issues persist with her starting new chemo last week resulting in moderate to severe fatigue, with inability to don her compression tights and need to use her walker again instead of cane. Due to living out of her car she is unable to follow through with all aspects of lymphedema care. Had to have work done on her car so couldn't afford yet to order compression garments; reports will be able to . LTG Duration 08/20/23 Assessment Summary Assessment Improved circumferential measurements with inc compression. Right LE wrap did not fit; patient obtained Circ Aid alternative compression garment not large enough. Encouraged her to order Solaris ready wrap as has for left LE, send this current one back. Physical Therapy Plan Frequency and Duration Frequency of Treatment 2x/Week Duration of treatment (weeks) 8 Plan of Care Start Date 06/20/23 Plan of Care End Date 08/20/23 Therapeutic Interventions Therapeutic Interventions Home Exercise Program, Lymphedema Management,Manual Therapy,Patient/Caregiver Education,Self-Care/Home Management,Therapeutic Activities,Therapeutic Exercises Next Visit Focus/Plan Next Note Type Treatment Note Next Visit Plan Continue CDT for stella LE lymphedema. Progress to independent self-care. Patient to send back current compression for right LE and obtain Solaris ready wrap.
--- NOTE | 2023-08-03 10:56 | PT-OP ANOTE ---
cancelled due to reaction from chemo treatment
--- NOTE | 2023-08-09 16:44 | PT.OTN ---
Current Diagnoses Lymphedema, not elsewhere classified (08/09/23) Non-pressure chronic ulcer of other part of left lower leg with fat layer exposed (08/09/23) Soft tissue disorder, unspecified (08/09/23) Difficulty in walking, not elsewhere classified (08/09/23) Physical Therapy Treatment Note PT-OP-A Visit Information Start: 01/10/23 16:14 Freq: Status: Active Protocol: Document 08/09/23 12:55 [facility] (Rec: 08/09/23 13:57 [facility] [id number]) Out-Patient Physical Therapy Visit Information Visit Information Visit Type Treatment Note Visit Start Time 13:00 Visit Number 30 Precautions Precautions endometrial cancer, nonhealing wound left LE PT-OP-B Current Condition Start: 01/10/23 16:14 Freq: Status: Active Protocol: Document 05/24/23 15:10 [facility] (Rec: 05/24/23 16:59 [facility] [id number]) Current Condition History of Current Condition Onset Date 22 months Current Complaints stella LE lymphedema History of Current Condition was travelling and knew something was wrong with her left leg, went to ER diagnosed with cellulitis stella LE's, was in hospital 28 days. 3 days before discharge developed lymphedema. Went to [facility] wound care, did not have good experience, no recommendation for PT. Now going to wound care at [facility] and PT was recommended. Using Vaseline due to dryness in legs. Has had multiple infections since that time. Then last year having vaginal bleeding and diagnosed with endometrial cancer. Has had 3 treatments of chemo. Can't have Obgyn surgery until infection in leg healed, possiblty more chemo. Sees oncologist tomorrow Dr. Merrick Hurtado in [place] at [facility]. Prior Treatments and Tests PMH: cellulitis, lymphedema stella LE's, peripheral neuropathy, morbid obesity, hysteroscopy, chronic non- healing ulcer left LE Future Testing and Treatments Planned Preparing for Obgyn surgery for endometrial cancer. PT-OP-C Subjective Start: 01/10/23 16:14 Freq: Status: Active Protocol: Document 08/09/23 12:55 [facility] (Rec: 08/09/23 13:57 [facility] [id number]) OP-PT Subjective Patient Comments Patient Comments REports she has ordered foot wraps, right calf wrap, and new shoes, none have been delivered yet. Reports her cancer markers were significantly decreased but not low enough for surgery yet . Hasn't been able to have much compression on right calf due to poor fit of wrap, no PT bandaging due to time restrictions end of last session. WEaring compression tights. PT-OP-G Mobility & Gait Start: 01/10/23 16:14 Freq: Status: Active Protocol: Document 01/11/23 07:56 [facility] (Rec: 01/11/23 16:21 [facility] [id number]) OP Mobility Evaluation Bed Mobility Supine to and from Sit mod assist for LE's Transfers Sit to Stand use of FWW with SBA OP Gait Assessment Gait Gait Assistance Required: Independent Distance (Feet) 60 Assistive Devices Assistive Device Front Wheeled Walker Orthotic/Prosthetic Devices or Brace: No Gait Deviations General Gait Pattern Decreased Stride Length, Decreased Feet Clearance, Flexed Trunk,Wide Based Gait Comments Gait Comments limited by weight of legs due to lymphedema PT-OP-J Posture/Palpation/Skin Start: 01/10/23 16:14 Freq: Status: Active Protocol: Document 01/11/23 07:56 [facility] (Rec: 01/11/23 16:21 [facility] [id number]) Skin Assessment Other Assessments Skin Assessment Comments hyperkeratosis and elephatiasis stella LE's PT-OP-K Range of Motion Start: 01/10/23 16:14 Freq: Status: Active Protocol: Document 01/11/23 07:56 [facility] (Rec: 01/11/23 16:21 [facility] [id number]) Hip Goniometric Range of Motion Hip ROM Limitations Hip ROM Limitations Swelling Comments moderate limitations Knee Goniometric Range of Motion Knee ROM Limitations Knee ROM Limitations Swelling Comments moderate limitations Ankle and Foot Goniometric Range of Motion Ankle and Foot ROM Limitations ROM Limitations Swelling Comments moderate limitations PT-OP-M Strength Start: 01/10/23 16:14 Freq: Status: Active Protocol: Document 01/11/23 07:56 [facility] (Rec: 01/11/23 16:21 [facility] [id number]) Hip Strength Hip Manual Muscle Testing stella Comments less than anti-gravity stregnth, requires assistance for legs on and off treatment table. No MMT Knee Strength Knee Manual Muscle Testing stella Comments has anti-gravity strength ext. No MMT Ankle/Foot Strength Ankle and Foot Manual Muscle Testing stella Comments has anti gravity strength. No MMT PT-OP-N Lymphedema Start: 05/15/23 16:14 Freq: Status: Active Protocol: Document 08/09/23 12:55 [facility] (Rec: 08/09/23 13:57 [facility] [id number]) Lymphedema Measurements Lower Extremity Circumference Measurements Right Affected MT Heads 26.3 cm Mid-foot 26.5 cm Medial Malleolus 36.3 cm 10 cm From Medial Malleolus 47.5 cm 20 cm From Medial Malleolus 64 cm 30 cm From Medial Malleolus 72.4 cm 40 cm From Medial Malleolus 74.9 cm 50 cm From Medial Malleolus 74.3 cm 60 cm From Medial Malleolus 72.7 cm 70 cm From Medial Malleolus 74 cm Knee Joint 72.2 cm - from bottom of foot Left Affected MT Heads 25.8 cm Mid-foot 26.9 cm Medial Malleolus 37.9 cm 10 cm From Medial Malleolus 44 cm 20 cm From Medial Malleolus 53.8 cm 30 cm From Medial Malleolus 58.8 cm 40 cm From Medial Malleolus 61.2 cm 50 cm From Medial Malleolus 71.2 cm 60 cm From Medial Malleolus 74.3 cm 70 cm From Medial Malleolus 84.1 cm Knee Joint 65.1 cm - from bottom of foot PT-OP-Q Treatments Start: 01/10/23 16:14 Freq: Status: Active Protocol: Document 08/09/23 12:55 [facility] (Rec: 08/09/23 13:57 [facility] [id number]) Cardio Equipment Recumbent Stepper (Sci-Fit) Duration (Minutes) 10 Resistance 1 Seat Position 10 Other to facilitate lymphatic flow Therapeutic Exercises Supine Exercises deep breathing Reps/Minutes 5x3 Lymphedema Treatment Manual Lymphatic Drainage Location for stella LE's, Duration 60 Comments focus on AIA pathways sequential pneumatic pump on opposite side 40 mm Hg Lymphedema Wrapping Body Location stella LE's toes to knees Materials Right LE: Coban system with padding, extra black foam anterior ankle crease, covered by Coban Lite MTP to just below knees. Blue antibacterial foam dressing over open wound covered by 2x2 and Kerlix. Ready wrap applied to knee Left LE: size J Tubigrip ankle to knee with black foam over anterior ankle crease, Ready wrap left ankle to knee, and ready wrap knee applied Other education of patient in correct fit of knee ready wraps Sequential Lymphedema Exercises Comments Sci-Fit x 10 min L1 Compression Garment Assessment Compression Garment Assessment Details Good fit knee wraps and left lower leg Ready Wrap. Awaiting REady Wrap for right Patient Education Other importance of consistent compression, skin checks Other Other circumferential measurements sequential pneumatic pump right LE during MLD left 30 min at 45 mm HG work on fibrotic tissue stella lower legs right greater than left Continue to wear compression tights as able, monitor for yeast infection PT-OP-T Assessment and Plan Start: 01/10/23 16:14 Freq: Status: Active Protocol: Document 08/09/23 12:55 [facility] (Rec: 08/09/23 13:57 [facility] [id number]) Physical Therapy Assessment Goals Three Impairment impaired mobility and activity tolerance related to size of her legs Impairment uses FWW and doesn't go out of the house other than for medical appointments Short Term Goal (STG) Patient will be able to ambulate 500 ft with SPC with min assist 04/05/23: goal met STG Duration goal met Pet Walker Goal (LTG) Patient will be able to ambulate at least 1000 feet with least restrictive device to allow for return to community mobility 04/18/23: goal progress, patient reports increased ease of lifting LE's, now able to get on and off treatment table on own 75% of time 06/20/23: 06/20/23: not seen x 2 weeks in PT due to patient schedule and PT schedule. Patient medical issues persist with her starting new chemo last week resulting in moderate to severe fatigue, and need to use walker instead of cane. Goal not met LTG Duration 08/20/23 Two Impairment LYmphedema life impact scale 56% Short Term Goal (STG) Decrease Lymphedema life impact scale to no greater than 40% 04/05/23: goal met STG Duration goal met Group Home Goal (LTG) Decrease lymphedema life impact scale to no greater than 25% as measure of improved activity tolerance and quality of life 04/13/23: goal progress, not fully achieved 06/20/23: not seen x 2 weeks in PT due to patient schedule and PT schedule. Patient medical issues persist with her starting new chemo last week resulting in moderate to severe fatigue, inability to don her compression tights. Goal not met LTG Duration 08/20/23 One Impairment Lymphedema stella LE's Short Term Goal (STG) Patient to be instructed in all aspects of lymphedema care to include skin care, MLD, compression, and lymphedema exercises 04/05/23: goal met STG Duration goal met Pet Walker Goal (LTG) Patient to be independent in all aspects of lymphedema care , LE circumferential measurements to be stable (no increase or decrease greater than 1 cm over the course of 1 week), and patient to obtain appropriate compression garments for stella LE lymphedema managements and possibly sequential pneumatic pump. 04/12/23: Patient is challenged by wearing adequate compression due to body size and shape and difficulty reaching, as well as financial concerns as she is currently living out of her car. 06/20/23:06/20/23: not seen x 2 weeks in PT due to patient schedule and PT schedule. Patient medical issues persist with her starting new chemo last week resulting in moderate to severe fatigue, with inability to don her compression tights and need to use her walker again instead of cane. Due to living out of her car she is unable to follow through with all aspects of lymphedema care. Had to have work done on her car so couldn't afford yet to order compression garments; reports will be able to . LTG Duration 08/20/23 Assessment Summary Assessment Not seen for 2 wks, circumferential measurements increased. Awaiting further compression garments. Much difficulty with self- management including living in car, lack of elevation, weakness from chemo with decreased activity level, difficulty donning compression . Unable to use pump except with occasional hotel stays. Physical Therapy Plan Frequency and Duration Frequency of Treatment 2x/Week Duration of treatment (weeks) 8 Plan of Care Start Date 06/20/23 Plan of Care End Date 08/20/23 Therapeutic Interventions Therapeutic Interventions Home Exercise Program, Lymphedema Management,Manual Therapy,Patient/Caregiver Education,Self-Care/Home Management,Therapeutic Activities,Therapeutic Exercises Next Visit Focus/Plan Next Note Type Treatment Note Next Visit Plan Continue CDT for stella LE lymphedema. Progress to independent self-care.
--- NOTE | 2023-08-11 08:06 | PT-OP ANOTE ---
cancelled due to not feeling well
--- NOTE | 2023-08-16 11:17 | PT.OTN ---
Current Diagnoses Lymphedema, not elsewhere classified (08/16/23) Non-pressure chronic ulcer of other part of left lower leg with fat layer exposed (08/16/23) Soft tissue disorder, unspecified (08/16/23) Difficulty in walking, not elsewhere classified (08/16/23) Physical Therapy Treatment Note PT-OP-A Visit Information Start: 01/10/23 16:14 Freq: Status: Active Protocol: Document 08/16/23 10:47 SAK (Rec: 08/16/23 11:17 SAK [id number]) Out-Patient Physical Therapy Visit Information Visit Information Visit Type Treatment Note Visit Start Time 10:45 Visit Stop Time 12:00 Total Visit Minutes 75 Visit Number 31 Precautions Precautions endometrial cancer, nonhealing wound left LE PT-OP-B Current Condition Start: 01/10/23 16:14 Freq: Status: Active Protocol: Document 05/24/23 15:10 SAK (Rec: 05/24/23 16:59 SAK [id number]) Current Condition History of Current Condition Onset Date 22 months Current Complaints stella LE lymphedema History of Current Condition was travelling and knew something was wrong with her left leg, went to ER diagnosed with cellulitis stella LE's, was in hospital 28 days. 3 days before discharge developed lymphedema. Went to [facility] wound care, did not have good experience, no recommendation for PT. Now going to wound care at [facility] and PT was recommended. Using Vaseline due to dryness in legs. Has had multiple infections since that time. Then last year having vaginal bleeding and diagnosed with endometrial cancer. Has had 3 treatments of chemo. Can't have Obgyn surgery until infection in leg healed, possiblty more chemo. Sees oncologist tomorrow Dr. Merrick Hurtado in [place] at [facility]. Prior Treatments and Tests PMH: cellulitis, lymphedema stella LE's, peripheral neuropathy, morbid obesity, hysteroscopy, chronic non- healing ulcer left LE Future Testing and Treatments Planned Preparing for Obgyn surgery for endometrial cancer. PT-OP-C Subjective Start: 01/10/23 16:14 Freq: Status: Active Protocol: Document 08/16/23 10:47 SAK (Rec: 08/16/23 11:17 SAK [id number]) OP-PT Subjective Patient Comments Patient Comments Apologizes for being late, getting line flushed, stressed about being late. Patient reports right great to very sore after hitting it on something. Hasn't received compression wrap for feet or right lower leg yet. PT-OP-G Mobility & Gait Start: 01/10/23 16:14 Freq: Status: Active Protocol: Document 01/11/23 07:56 [facility] (Rec: 01/11/23 16:21 [facility] [id number]) OP Mobility Evaluation Bed Mobility Supine to and from Sit mod assist for LE's Transfers Sit to Stand use of FWW with SBA OP Gait Assessment Gait Gait Assistance Required: Independent Distance (Feet) 60 Assistive Devices Assistive Device Front Wheeled Walker Orthotic/Prosthetic Devices or Brace: No Gait Deviations General Gait Pattern Decreased Stride Length, Decreased Feet Clearance, Flexed Trunk,Wide Based Gait Comments Gait Comments limited by weight of legs due to lymphedema PT-OP-J Posture/Palpation/Skin Start: 01/10/23 16:14 Freq: Status: Active Protocol: Document 01/11/23 07:56 [facility] (Rec: 01/11/23 16:21 [facility] [id number]) Skin Assessment Other Assessments Skin Assessment Comments hyperkeratosis and elephatiasis stella LE's PT-OP-K Range of Motion Start: 01/10/23 16:14 Freq: Status: Active Protocol: Document 01/11/23 07:56 [facility] (Rec: 01/11/23 16:21 [facility] [id number]) Hip Goniometric Range of Motion Hip ROM Limitations Hip ROM Limitations Swelling Comments moderate limitations Knee Goniometric Range of Motion Knee ROM Limitations Knee ROM Limitations Swelling Comments moderate limitations Ankle and Foot Goniometric Range of Motion Ankle and Foot ROM Limitations ROM Limitations Swelling Comments moderate limitations PT-OP-M Strength Start: 01/10/23 16:14 Freq: Status: Active Protocol: Document 01/11/23 07:56 [facility] (Rec: 01/11/23 16:21 [facility] [id number]) Hip Strength Hip Manual Muscle Testing stella Comments less than anti-gravity stregnth, requires assistance for legs on and off treatment table. No MMT Knee Strength Knee Manual Muscle Testing stella Comments has anti-gravity strength ext. No MMT Ankle/Foot Strength Ankle and Foot Manual Muscle Testing stella Comments has anti gravity strength. No MMT PT-OP-N Lymphedema Start: 01/10/23 16:14 Freq: Status: Active Protocol: Document 08/16/23 10:47 KATIA (Rec: 08/16/23 11:17 [facility] [id number]) Lymphedema Measurements Lower Extremity Circumference Measurements Right Affected MT Heads 28.2 cm Mid-foot 27.5 cm Medial Malleolus 37.3 cm 10 cm From Medial Malleolus 46.8 cm 20 cm From Medial Malleolus 57.9 cm 30 cm From Medial Malleolus 68 cm 40 cm From Medial Malleolus 69 cm 50 cm From Medial Malleolus 71.8 cm 60 cm From Medial Malleolus 73.7 cm 70 cm From Medial Malleolus 75 cm Knee Joint 68 cm - from bottom of foot Left Affected MT Heads 26.2 cm Mid-foot 27.3 cm Medial Malleolus 38.2 cm 10 cm From Medial Malleolus 45.5 cm 20 cm From Medial Malleolus 56.4 cm 30 cm From Medial Malleolus 58.2 cm 40 cm From Medial Malleolus 59.7 cm 50 cm From Medial Malleolus 69.2 cm 60 cm From Medial Malleolus 74 cm 70 cm From Medial Malleolus 82 cm Knee Joint 64.3 cm PT-OP-Q Treatments Start: 01/10/23 16:14 Freq: Status: Active Protocol: Document 08/16/23 10:47 [facility] (Rec: 08/16/23 11:17 [facility] [id number]) Lymphedema Treatment Manual Lymphatic Drainage Location left LE Duration 60 Comments focus on AIA pathways sequential pneumatic pump on opposite side 40 mm Hg Lymphedema Wrapping Body Location stella LE's toes to knees Materials Left LE: size J Tubigrip ankle to knee with black foam over anterior ankle crease, Ready wrap left ankle to knee, and ready wrap knee applied Right LE: Coban system with padding, extra black foam anterior ankle crease, covered by Coban Lite MTP to just below knees. Blue antibacterial foam dressing over open wound covered by 2x2 and Kerlix. Ready wrap applied to knee Sequential Lymphedema Exercises Comments not done due to patient late, sore toe Compression Garment Assessment Compression Garment Assessment Details hasn't received new wraps yet for feet and right lower leg Other Other circumferential measurements sequential pneumatic pump leftLE during MLD left 30 min at 45 mm HG work on fibrotic tissue stella lower legs right greater than left Continue to wear compression tights as able, monitor for yeast infection PT-OP-T Assessment and Plan Start: 01/10/23 16:14 Freq: Status: Active Protocol: Document 08/16/23 10:47 KATIA (Rec: 08/16/23 11:17 SAK [id number]) Physical Therapy Assessment Goals Three Impairment impaired mobility and activity tolerance related to size of her legs Impairment uses FWW and doesn't go out of the house other than for medical appointments Short Term Goal (STG) Patient will be able to ambulate 500 ft with SPC with min assist 04/05/23: goal met STG Duration goal met Skilled Nursing Goal (LTG) Patient will be able to ambulate at least 1000 feet with least restrictive device to allow for return to community mobility 04/18/23: goal progress, patient reports increased ease of lifting LE's, now able to get on and off treatment table on own 75% of time 06/20/23: 06/20/23: not seen x 2 weeks in PT due to patient schedule and PT schedule. Patient medical issues persist with her starting new chemo last week resulting in moderate to severe fatigue, and need to use walker instead of cane. Goal not met LTG Duration 08/20/23 Two Impairment LYmphedema life impact scale 56% Short Term Goal (STG) Decrease Lymphedema life impact scale to no greater than 40% 04/05/23: goal met STG Duration goal met Skilled Nursing Goal (LTG) Decrease lymphedema life impact scale to no greater than 25% as measure of improved activity tolerance and quality of life 04/13/23: goal progress, not fully achieved 06/20/23: not seen x 2 weeks in PT due to patient schedule and PT schedule. Patient medical issues persist with her starting new chemo last week resulting in moderate to severe fatigue, inability to don her compression tights. Goal not met LTG Duration 08/20/23 One Impairment Lymphedema stella LE's Short Term Goal (STG) Patient to be instructed in all aspects of lymphedema care to include skin care, MLD, compression, and lymphedema exercises 04/05/23: goal met STG Duration goal met Skilled Nursing Goal (LTG) Patient to be independent in all aspects of lymphedema care , LE circumferential measurements to be stable (no increase or decrease greater than 1 cm over the course of 1 week), and patient to obtain appropriate compression garments for stella LE lymphedema managements and possibly sequential pneumatic pump. 04/12/23: Patient is challenged by wearing adequate compression due to body size and shape and difficulty reaching, as well as financial concerns as she is currently living out of her car. 06/20/23:06/20/23: not seen x 2 weeks in PT due to patient schedule and PT schedule. Patient medical issues persist with her starting new chemo last week resulting in moderate to severe fatigue, with inability to don her compression tights and need to use her walker again instead of cane. Due to living out of her car she is unable to follow through with all aspects of lymphedema care. Had to have work done on her car so couldn't afford yet to order compression garments; reports will be able to . LTG Duration 08/20/23 Assessment Summary Assessment Circumferential measurements increased in feet, dec rest of legs, feel knee wraps helpful in pulling lymphatic fluid. No pump or MLD right LE due to apparent infection; patient advised to go to urgent care due to redness and drainage. Physical Therapy Plan Frequency and Duration Frequency of Treatment 2x/Week Duration of treatment (weeks) 8 Plan of Care Start Date 06/20/23 Plan of Care End Date 08/20/23 Therapeutic Interventions Therapeutic Interventions Home Exercise Program, Lymphedema Management,Manual Therapy,Patient/Caregiver Education,Self-Care/Home Management,Therapeutic Activities,Therapeutic Exercises Next Visit Focus/Plan Next Note Type Treatment Note Next Visit Plan Continue CDT for stella LE lymphedema. Progress to independent self-care. ASsess fit of new wraps when receives.
--- NOTE | 2023-08-18 14:39 | PT.OTN ---
Current Diagnoses Lymphedema, not elsewhere classified (08/18/23) Non-pressure chronic ulcer of other part of left lower leg with fat layer exposed (08/18/23) Soft tissue disorder, unspecified (08/18/23) Difficulty in walking, not elsewhere classified (08/18/23) Physical Therapy Treatment Note PT-OP-A Visit Information Start: 01/10/23 16:14 Freq: Status: Active Protocol: Document 08/18/23 14:13 SAK (Rec: 08/18/23 14:34 [facility] [id number]) Out-Patient Physical Therapy Visit Information Visit Information Visit Type Treatment Note Visit Start Time 13:46 Visit Stop Time 15:10 Total Visit Minutes 85 Visit Number 32 Precautions Precautions endometrial cancer, nonhealing wound left LE PT-OP-B Current Condition Start: 01/10/23 16:14 Freq: Status: Active Protocol: Document 05/24/23 15:10 SAK (Rec: 05/24/23 16:59 SAK [id number]) Current Condition History of Current Condition Onset Date 22 months Current Complaints stella LE lymphedema History of Current Condition was travelling and knew something was wrong with her left leg, went to ER diagnosed with cellulitis stella LE's, was in hospital 28 days. 3 days before discharge developed lymphedema. Went to [facility] wound care, did not have good experience, no recommendation for PT. Now going to wound care at [facility] and PT was recommended. Using Vaseline due to dryness in legs. Has had multiple infections since that time. Then last year having vaginal bleeding and diagnosed with endometrial cancer. Has had 3 treatments of chemo. Can't have Obgyn surgery until infection in leg healed, possiblty more chemo. Sees oncologist tomorrow Dr. Merrick Hurtado in [place] at [facility]. Prior Treatments and Tests PMH: cellulitis, lymphedema stella LE's, peripheral neuropathy, morbid obesity, hysteroscopy, chronic non- healing ulcer left LE Future Testing and Treatments Planned Preparing for Obgyn surgery for endometrial cancer. PT-OP-C Subjective Start: 01/10/23 16:14 Freq: Status: Active Protocol: Document 08/18/23 14:13 SAK (Rec: 08/18/23 14:34 SAK [id number]) OP-PT Subjective Patient Comments Patient Comments No new c/o. Started on antibiotics with good tolerance. [place] bandaging right ankle a little tight. Bandaid applied by PT to great toe stayed in place. PT-OP-G Mobility & Gait Start: 01/10/23 16:14 Freq: Status: Active Protocol: Document 01/11/23 07:56 [facility] (Rec: 01/11/23 16:21 [facility] [id number]) OP Mobility Evaluation Bed Mobility Supine to and from Sit mod assist for LE's Transfers Sit to Stand use of FWW with SBA OP Gait Assessment Gait Gait Assistance Required: Independent Distance (Feet) 60 Assistive Devices Assistive Device Front Wheeled Walker Orthotic/Prosthetic Devices or Brace: No Gait Deviations General Gait Pattern Decreased Stride Length, Decreased Feet Clearance, Flexed Trunk,Wide Based Gait Comments Gait Comments limited by weight of legs due to lymphedema PT-OP-J Posture/Palpation/Skin Start: 01/10/23 16:14 Freq: Status: Active Protocol: Document 01/11/23 07:56 [facility] (Rec: 01/11/23 16:21 [facility] [id number]) Skin Assessment Other Assessments Skin Assessment Comments hyperkeratosis and elephatiasis stella LE's PT-OP-K Range of Motion Start: 01/10/23 16:14 Freq: Status: Active Protocol: Document 01/11/23 07:56 [facility] (Rec: 01/11/23 16:21 [facility] [id number]) Hip Goniometric Range of Motion Hip ROM Limitations Hip ROM Limitations Swelling Comments moderate limitations Knee Goniometric Range of Motion Knee ROM Limitations Knee ROM Limitations Swelling Comments moderate limitations Ankle and Foot Goniometric Range of Motion Ankle and Foot ROM Limitations ROM Limitations Swelling Comments moderate limitations PT-OP-M Strength Start: 01/10/23 16:14 Freq: Status: Active Protocol: Document 01/11/23 07:56 [facility] (Rec: 01/11/23 16:21 [facility] [id number]) Hip Strength Hip Manual Muscle Testing stella Comments less than anti-gravity stregnth, requires assistance for legs on and off treatment table. No MMT Knee Strength Knee Manual Muscle Testing stella Comments has anti-gravity strength ext. No MMT Ankle/Foot Strength Ankle and Foot Manual Muscle Testing stella Comments has anti gravity strength. No MMT PT-OP-N Lymphedema Start: 01/10/23 16:14 Freq: Status: Active Protocol: Document 08/18/23 14:13 [facility]ATIA (Rec: 08/18/23 14:34 [facility] [id number]) Lymphedema Measurements Lower Extremity Circumference Measurements Right Affected MT Heads 26.5 cm Mid-foot 26.2 cm Medial Malleolus 34.6 cm 10 cm From Medial Malleolus 42.8 cm 20 cm From Medial Malleolus 56.6 cm 30 cm From Medial Malleolus 65.6 cm 40 cm From Medial Malleolus 68.3 cm 50 cm From Medial Malleolus 73.6 cm 60 cm From Medial Malleolus 76.2 cm 70 cm From Medial Malleolus 77 cm Knee Joint 70.4 cm - from bottom of foot PT-OP-Q Treatments Start: 01/10/23 16:14 Freq: Status: Active Protocol: Document 08/18/23 14:13 [facility]ATIA (Rec: 08/18/23 14:34 [facility] [id number]) Lymphedema Treatment Manual Lymphatic Drainage Location left LE Duration 60 Comments focus on AIA pathways sequential pneumatic pump on opposite side 40 mm Hg Lymphedema Wrapping Body Location stella LE's toes to knees Materials Left LE: size J Tubigrip ankle to knee with black foam over anterior ankle crease, Ready wrap left ankle to knee, and ready wrap knee applied Right LE: Coban system with padding, extra black foam anterior ankle crease, covered by Coban Lite MTP to just below knees. Blue antibacterial foam dressing over open wound covered by 2x2 and Kerlix. Ready wrap applied to knee Sequential Lymphedema Exercises Comments patient too fatigued for Sci- Fit. Did supine exercises Compression Garment Assessment Compression Garment Assessment Details hasn't received new wraps yet for feet and right lower leg Other Other circumferential measurements sequential pneumatic pump leftLE during MLD left 30 min at 45 mm HG Continue to wear compression tights as able, monitor for yeast infection PT-OP-T Assessment and Plan Start: 01/10/23 16:14 Freq: Status: Active Protocol: Document 08/18/23 14:13 [facility]ATIA (Rec: 08/18/23 14:34 [facility] [id number]) Physical Therapy Assessment Goals Three Impairment impaired mobility and activity tolerance related to size of her legs Impairment uses FWW and doesn't go out of the house other than for medical appointments Short Term Goal (STG) Patient will be able to ambulate 500 ft with SPC with min assist 04/05/23: goal met STG Duration goal met Halfway Goal (LTG) Patient will be able to ambulate at least 1000 feet with least restrictive device to allow for return to community mobility 04/18/23: goal progress, patient reports increased ease of lifting LE's, now able to get on and off treatment table on own 75% of time 06/20/23: 06/20/23: not seen x 2 weeks in PT due to patient schedule and PT schedule. Patient medical issues persist with her starting new chemo last week resulting in moderate to severe fatigue, and need to use walker instead of cane. Goal not met LTG Duration 08/20/23 Two Impairment LYmphedema life impact scale 56% Short Term Goal (STG) Decrease Lymphedema life impact scale to no greater than 40% 04/05/23: goal met STG Duration goal met Halfway Goal (LTG) Decrease lymphedema life impact scale to no greater than 25% as measure of improved activity tolerance and quality of life 04/13/23: goal progress, not fully achieved 06/20/23: not seen x 2 weeks in PT due to patient schedule and PT schedule. Patient medical issues persist with her starting new chemo last week resulting in moderate to severe fatigue, inability to don her compression tights. Goal not met LTG Duration 08/20/23 One Impairment Lymphedema stella LE's Short Term Goal (STG) Patient to be instructed in all aspects of lymphedema care to include skin care, MLD, compression, and lymphedema exercises 04/05/23: goal met STG Duration goal met Halfway Goal (LTG) Patient to be independent in all aspects of lymphedema care , LE circumferential measurements to be stable (no increase or decrease greater than 1 cm over the course of 1 week), and patient to obtain appropriate compression garments for stella LE lymphedema managements and possibly sequential pneumatic pump. 04/12/23: Patient is challenged by wearing adequate compression due to body size and shape and difficulty reaching, as well as financial concerns as she is currently living out of her car. 06/20/23:06/20/23: not seen x 2 weeks in PT due to patient schedule and PT schedule. Patient medical issues persist with her starting new chemo last week resulting in moderate to severe fatigue, with inability to don her compression tights and need to use her walker again instead of cane. Due to living out of her car she is unable to follow through with all aspects of lymphedema care. Had to have work done on her car so couldn't afford yet to order compression garments; reports will be able to . LTG Duration 08/20/23 Assessment Summary Assessment Lower leg measurements dec but upper leg measurements inc on right leg today; hasn't worn tights since before last seen resulting in inc upper leg measurement inc. Feel antibiotic plus bandaging right LE helped dec edema. Patient seeing wound care today due to infected right toe. Physical Therapy Plan Frequency and Duration Frequency of Treatment 2x/Week Duration of treatment (weeks) 8 Plan of Care Start Date 06/20/23 Plan of Care End Date 08/20/23 Therapeutic Interventions Therapeutic Interventions Home Exercise Program, Lymphedema Management,Manual Therapy,Patient/Caregiver Education,Self-Care/Home Management,Therapeutic Activities,Therapeutic Exercises Next Visit Focus/Plan Next Note Type Treatment Note Next Visit Plan Continue CDT for stella LE lymphedema. Progress to independent self-care. ASsess fit of new wraps when receives.
--- NOTE | 2023-08-18 14:47 | PT.OTRE ---
Current Diagnoses Lymphedema, not elsewhere classified (08/18/23) Non-pressure chronic ulcer of other part of left lower leg with fat layer exposed (08/18/23) Soft tissue disorder, unspecified (08/18/23) Difficulty in walking, not elsewhere classified (08/18/23) Visit Care Team Role Provider Type Geovani Elder DO Family Provider Non-Staff Primary Care Provider Specialty: Medical Address: [address] [place] [address] Dr. Mike De Los Santos, [place], [address] Email: Nicolás Schrader MD Attending Provider Physician Referring Provider Specialty: Wound Care Address: [address] [place] [address], [id number] Email: [email or web address] Physical Therapy Re-Evaluation PT-OP-A Visit Information Start: 01/10/23 16:14 Freq: Status: Active Protocol: Document 08/18/23 14:13 [facility] (Rec: 08/18/23 14:34 [facility] [id number]) Out-Patient Physical Therapy Visit Information Visit Information Visit Type Treatment Note Visit Start Time 13:46 Visit Stop Time 15:10 Total Visit Minutes 85 Visit Number 32 Precautions Precautions endometrial cancer, nonhealing wound left LE PT-OP-B Current Condition Start: 01/10/23 16:14 Freq: Status: Active Protocol: Document 05/24/23 15:10 [facility] (Rec: 05/24/23 16:59 [facility] [id number]) Current Condition History of Current Condition Onset Date 22 months Current Complaints stella LE lymphedema History of Current Condition was travelling and knew something was wrong with her left leg, went to ER diagnosed with cellulitis stella LE's, was in hospital 28 days. 3 days before discharge developed lymphedema. Went to [facility] wound care, did not have good experience, no recommendation for PT. Now going to wound care at [facility] and PT was recommended. Using Vaseline due to dryness in legs. Has had multiple infections since that time. Then last year having vaginal bleeding and diagnosed with endometrial cancer. Has had 3 treatments of chemo. Can't have Obgyn surgery until infection in leg healed, possiblty more chemo. Sees oncologist tomorrow Dr. Merrick Hurtado in [place] at [facility]. Prior Treatments and Tests PMH: cellulitis, lymphedema stella LE's, peripheral neuropathy, morbid obesity, hysteroscopy, chronic non- healing ulcer left LE Future Testing and Treatments Planned Preparing for Obgyn surgery for endometrial cancer. PT-OP-C Subjective Start: 01/10/23 16:14 Freq: Status: Active Protocol: Document 08/18/23 14:13 [facility] (Rec: 08/18/23 14:34 [facility] [id number]) OP-PT Subjective Patient Comments Patient Comments No new c/o. Started on antibiotics with good tolerance. [place] bandaging right ankle a little tight. Bandaid applied by PT to great toe stayed in place. PT-OP-G Mobility & Gait Start: 01/10/23 16:14 Freq: Status: Active Protocol: Document 01/11/23 07:56 [facility] (Rec: 01/11/23 16:21 [facility] [id number]) OP Mobility Evaluation Bed Mobility Supine to and from Sit mod assist for LE's Transfers Sit to Stand use of FWW with SBA OP Gait Assessment Gait Gait Assistance Required: Independent Distance (Feet) 60 Assistive Devices Assistive Device Front Wheeled Walker Orthotic/Prosthetic Devices or Brace: No Gait Deviations General Gait Pattern Decreased Stride Length, Decreased Feet Clearance, Flexed Trunk,Wide Based Gait Comments Gait Comments limited by weight of legs due to lymphedema PT-OP-J Posture/Palpation/Skin Start: 01/10/23 16:14 Freq: Status: Active Protocol: Document 01/11/23 07:56 [facility] (Rec: 01/11/23 16:21 [facility] [id number]) Skin Assessment Other Assessments Skin Assessment Comments hyperkeratosis and elephatiasis stella LE's PT-OP-K Range of Motion Start: 01/10/23 16:14 Freq: Status: Active Protocol: Document 01/11/23 07:56 [facility] (Rec: 01/11/23 16:21 [facility] [id number]) Hip Goniometric Range of Motion Hip ROM Limitations Hip ROM Limitations Swelling Comments moderate limitations Knee Goniometric Range of Motion Knee ROM Limitations Knee ROM Limitations Swelling Comments moderate limitations Ankle and Foot Goniometric Range of Motion Ankle and Foot ROM Limitations ROM Limitations Swelling Comments moderate limitations PT-OP-M Strength Start: 01/10/23 16:14 Freq: Status: Active Protocol: Document 01/11/23 07:56 [facility] (Rec: 01/11/23 16:21 [facility] [id number]) Hip Strength Hip Manual Muscle Testing stella Comments less than anti-gravity stregnth, requires assistance for legs on and off treatment table. No MMT Knee Strength Knee Manual Muscle Testing stella Comments has anti-gravity strength ext. No MMT Ankle/Foot Strength Ankle and Foot Manual Muscle Testing stella Comments has anti gravity strength. No MMT PT-OP-N Lymphedema Start: 01/10/23 16:14 Freq: Status: Active Protocol: Document 08/18/23 14:13 [facility] (Rec: 08/18/23 14:34 [facility] [id number]) Lymphedema Measurements Lower Extremity Circumference Measurements Right Affected MT Heads 26.5 cm Mid-foot 26.2 cm Medial Malleolus 34.6 cm 10 cm From Medial Malleolus 42.8 cm 20 cm From Medial Malleolus 56.6 cm 30 cm From Medial Malleolus 65.6 cm 40 cm From Medial Malleolus 68.3 cm 50 cm From Medial Malleolus 73.6 cm 60 cm From Medial Malleolus 76.2 cm 70 cm From Medial Malleolus 77 cm Knee Joint 70.4 cm - from bottom of foot PT-OP-Q Treatments Start: 01/10/23 16:14 Freq: Status: Active Protocol: Document 08/18/23 14:13 [facility] (Rec: 08/18/23 14:34 [facility] [id number]) Lymphedema Treatment Manual Lymphatic Drainage Location left LE Duration 60 Comments focus on AIA pathways sequential pneumatic pump on opposite side 40 mm Hg Lymphedema Wrapping Body Location stella LE's toes to knees Materials Left LE: size J Tubigrip ankle to knee with black foam over anterior ankle crease, Ready wrap left ankle to knee, and ready wrap knee applied Right LE: Coban system with padding, extra black foam anterior ankle crease, covered by Coban Lite MTP to just below knees. Blue antibacterial foam dressing over open wound covered by 2x2 and Kerlix. Ready wrap applied to knee Sequential Lymphedema Exercises Comments patient too fatigued for Sci- Fit. Did supine exercises Compression Garment Assessment Compression Garment Assessment Details hasn't received new wraps yet for feet and right lower leg Other Other circumferential measurements sequential pneumatic pump leftLE during MLD left 30 min at 45 mm HG Continue to wear compression tights as able, monitor for yeast infection PT-OP-T Assessment and Plan Start: 01/10/23 16:14 Freq: Status: Active Protocol: Document 08/18/23 14:13 [facility] (Rec: 08/18/23 14:34 [facility] [id number]) Physical Therapy Assessment Goals Three Impairment impaired mobility and activity tolerance related to size of her legs Impairment uses FWW and doesn't go out of the house other than for medical appointments Short Term Goal (STG) Patient will be able to ambulate 500 ft with SPC with min assist 04/05/23: goal met STG Duration goal met Shelter Goal (LTG) Patient will be able to ambulate at least 1000 feet with least restrictive device to allow for return to community mobility 04/18/23: goal progress, patient reports increased ease of lifting LE's, now able to get on and off treatment table on own 75% of time 06/20/23: 06/20/23: not seen x 2 weeks in PT due to patient schedule and PT schedule. Patient medical issues persist with her starting new chemo last week resulting in moderate to severe fatigue, and need to use walker instead of cane. Goal not met 08/18/24: not met due to medical issues, including new chemo, infected great toe LTG Duration 09/29/23 Two Impairment LYmphedema life impact scale 56% Short Term Goal (STG) Decrease Lymphedema life impact scale to no greater than 40% 04/05/23: goal met STG Duration goal met [employer] Goal (LTG) Decrease lymphedema life impact scale to no greater than 25% as measure of improved activity tolerance and quality of life 04/13/23: goal progress, not fully achieved 06/20/23: not seen x 2 weeks in PT due to patient schedule and PT schedule. Patient medical issues persist with her starting new chemo last week resulting in moderate to severe fatigue, inability to don her compression tights. Goal not met 08/18/23 goal not met. Has not received new compression wraps yet. Medical issues with new chemo have complicated her ability to perform all aspects of lymphedema care. LTG Duration 09/29/23 One Impairment Lymphedema stella LE's Short Term Goal (STG) Patient to be instructed in all aspects of lymphedema care to include skin care, MLD, compression, and lymphedema exercises 04/05/23: goal met STG Duration goal met Shelter Goal (LTG) Patient to be independent in all aspects of lymphedema care , LE circumferential measurements to be stable (no increase or decrease greater than 1 cm over the course of 1 week), and patient to obtain appropriate compression garments for stella LE lymphedema managements and possibly sequential pneumatic pump. 04/12/23: Patient is challenged by wearing adequate compression due to body size and shape and difficulty reaching, as well as financial concerns as she is currently living out of her car. 06/20/23:06/20/23: not seen x 2 weeks in PT due to patient schedule and PT schedule. Patient medical issues persist with her starting new chemo last week resulting in moderate to severe fatigue, with inability to don her compression tights and need to use her walker again instead of cane. Due to living out of her car she is unable to follow through with all aspects of lymphedema care. Had to have work done on her car so couldn't afford yet to order compression garments; reports will be able to . 08/18/23: patient lymphedema overall decreased but easily exacerbated due to patient not able to use pump consistently due to living in her car, and unable to reach legs fully to perform MLD, unable to elevate her LE's, or self- bandage. Awaiting new compression wraps for right LE and stella feet LTG Duration 08/20/23 Assessment Summary Assessment Lower leg measurements dec but upper leg measurements inc on right leg today; hasn't worn tights since before last seen resulting in inc upper leg measurement inc. Feel antibiotic plus bandaging right LE helped dec edema. Patient seeing wound care today due to infected right toe. Still awaiting delievery of new compression wrap for right LE and for stella feet. Medical issues with need for new chemo has affected patient energy level and activity tolerance, went back to using walker. Living in her car complicates her ability to follow through with all aspects of lymphedema care, only occasional use of pump when she stays in a hotel. compression wraps working well on left lower leg and knees. REcomend further PT to continue CLT and assure good fit of new compression wraps. Physical Therapy Plan Frequency and Duration Frequency of Treatment 1 Duration of treatment (weeks) 6 Plan of Care Start Date 08/18/23 Plan of Care End Date 02/01/24 Therapeutic Interventions Therapeutic Interventions Home Exercise Program, Lymphedema Management,Manual Therapy,Patient/Caregiver Education,Self-Care/Home Management,Therapeutic Activities,Therapeutic Exercises Next Visit Focus/Plan Next Note Type Treatment Note Next Visit Plan Continue CDT for stella LE lymphedema. Progress to independent self-care. ASsess fit of new wraps when receives.
--- NOTE | 2023-08-30 14:08 | PT-OP ANOTE ---
conflict with other medical appt. Reports she cancelled by phone when received reminder 2 days ago.
--- NOTE | 2023-09-01 16:41 | PT.OTRE ---
Current Diagnoses Lymphedema, not elsewhere classified (09/01/23) Non-pressure chronic ulcer of other part of left lower leg with fat layer exposed (09/01/23) Soft tissue disorder, unspecified (09/01/23) Difficulty in walking, not elsewhere classified (09/01/23) Visit Care Team Role Provider Type Geovani Elder DO Family Provider Non-Staff Primary Care Provider Specialty: Medical Address: [address] [place] [address] Dr. Mike De Los Santos, [place], [address] Email: Nicolás Schrader MD Attending Provider Physician Referring Provider Specialty: Wound Care Address: [address] [place] [address], [id number] Email: [email or web address] [facility] Re-Evaluation PT-OP-A Visit Information Start: 01/10/23 16:14 Freq: Status: Active Protocol: Document 09/01/23 13:03 [facility] (Rec: 09/01/23 14:28 [facility] [id number]) Out-Patient Physical Therapy Visit Information Visit Information Visit Type Treatment Note Visit Start Time 13:05 Visit Stop Time 14:30 Total Visit Minutes 85 Visit Number 33 Precautions Precautions endometrial cancer, nonhealing wound left LE PT-OP-B Current Condition Start: 01/10/23 16:14 Freq: Status: Active Protocol: Document 05/24/23 15:10 [facility] (Rec: 05/24/23 16:59 [facility] [id number]) Current Condition History of Current Condition Onset Date 22 months Current Complaints stella LE lymphedema History of Current Condition was travelling and knew something was wrong with her left leg, went to ER diagnosed with cellulitis stella LE's, was in hospital 28 days. 3 days before discharge developed lymphedema. Went to [facility] wound care, did not have good experience, no recommendation for PT. Now going to wound care at [facility] and PT was recommended. Using Vaseline due to dryness in legs. Has had multiple infections since that time. Then last year having vaginal bleeding and diagnosed with endometrial cancer. Has had 3 treatments of chemo. Can't have Obgyn surgery until infection in leg healed, possiblty more chemo. Sees oncologist tomorrow Dr. Merrick Hurtado in [place] at [facility]. Prior Treatments and Tests PMH: cellulitis, lymphedema stella LE's, peripheral neuropathy, morbid obesity, hysteroscopy, chronic non- healing ulcer left LE Future Testing and Treatments Planned Preparing for Obgyn surgery for endometrial cancer. PT-OP-C Subjective Start: 01/10/23 16:14 Freq: Status: Active Protocol: Document 09/01/23 13:03 [facility] (Rec: 09/01/23 14:28 [facility] [id number]) OP-PT Subjective Patient Comments Patient Comments Had nuclear test yesterday, fatigued and nauseous afterward, still fatigued and shaky today. Feeling cold. Got compression garments: stella foot/ankle wraps and right lower leg wrap. Still seeing wound care for toe infection; today right after PT. Thinks edema better than last time. Continues with chemo, losing all her hair again. PT-OP-G Mobility & Gait Start: 01/10/23 16:14 Freq: Status: Active Protocol: Document 01/11/23 07:56 [facility] (Rec: 01/11/23 16:21 [facility] [id number]) OP Mobility Evaluation Bed Mobility Supine to and from Sit mod assist for LE's Transfers Sit to Stand use of FWW with SBA OP Gait Assessment Gait Gait Assistance Required: Independent Distance (Feet) 60 Assistive Devices Assistive Device Front Wheeled Walker Orthotic/Prosthetic Devices or Brace: No Gait Deviations General Gait Pattern Decreased Stride Length, Decreased Feet Clearance, Flexed Trunk,Wide Based Gait Comments Gait Comments limited by weight of legs due to lymphedema PT-OP-J Posture/Palpation/Skin Start: 01/10/23 16:14 Freq: Status: Active Protocol: Document 01/11/23 07:56 [facility] (Rec: 01/11/23 16:21 [facility] [id number]) Skin Assessment Other Assessments Skin Assessment Comments hyperkeratosis and elephatiasis stella LE's PT-OP-K Range of Motion Start: 01/10/23 16:14 Freq: Status: Active Protocol: Document 01/11/23 07:56 [facility] (Rec: 01/11/23 16:21 [facility] [id number]) Hip Goniometric Range of Motion Hip ROM Limitations Hip ROM Limitations Swelling Comments moderate limitations Knee Goniometric Range of Motion Knee ROM Limitations Knee ROM Limitations Swelling Comments moderate limitations Ankle and Foot Goniometric Range of Motion Ankle and Foot ROM Limitations ROM Limitations Swelling Comments moderate limitations PT-OP-M Strength Start: 01/10/23 16:14 Freq: Status: Active Protocol: Document 01/11/23 07:56 [facility] (Rec: 01/11/23 16:21 [facility] [id number]) Hip Strength Hip Manual Muscle Testing stella Comments less than anti-gravity stregnth, requires assistance for legs on and off treatment table. No MMT Knee Strength Knee Manual Muscle Testing stella Comments has anti-gravity strength ext. No MMT Ankle/Foot Strength Ankle and Foot Manual Muscle Testing stella Comments has anti gravity strength. No MMT PT-OP-N Lymphedema Start: 01/10/23 16:14 Freq: Status: Active Protocol: Document 09/01/23 13:03 [facility] (Rec: 09/01/23 14:28 [facility] [id number]) Lymphedema Measurements Lower Extremity Circumference Measurements Right Affected MT Heads 26.4 cm Mid-foot 25.5 cm Medial Malleolus 33.8 cm 10 cm From Medial Malleolus 41 cm 20 cm From Medial Malleolus 57.2 cm 30 cm From Medial Malleolus 63.3 cm 40 cm From Medial Malleolus 69.9 cm 50 cm From Medial Malleolus 68.4 cm 60 cm From Medial Malleolus 71.1 cm 70 cm From Medial Malleolus 78.7 cm - from bottom of foot Left Affected MT Heads 24.6 cm Mid-foot 26.3 cm Medial Malleolus 35.6 cm 10 cm From Medial Malleolus 40.8 cm 20 cm From Medial Malleolus 54.8 cm 30 cm From Medial Malleolus 59.3 cm 40 cm From Medial Malleolus 61.4 cm 50 cm From Medial Malleolus 72.2 cm 60 cm From Medial Malleolus 75 cm 70 cm From Medial Malleolus 81.7 cm Knee Joint 65.5 cm - from bottom of foot. PT-OP-Q Treatments Start: 01/10/23 16:14 Freq: Status: Active Protocol: Document 09/01/23 13:03 [facility] (Rec: 09/01/23 14:28 [facility] [id number]) Therapeutic Exercises Sitting Exercises deep breathing Reps/Minutes 5x3 LAQ Reps/Minutes 10x ea ankle pumps Reps/Minutes 10x2 Lymphedema Treatment Manual Lymphatic Drainage Location left LE Duration 60 Comments focus on AIA pathways sequential pneumatic pump on opposite side 40 mm Hg Lymphedema Wrapping Body Location stella LE's toes to knees Materials Left LE: size J Tubigrip ankle to knee with black foam over anterior ankle crease, Ready wrap left ankle to knee, and ready wrap knee applied Right LE: Coban system with padding, extra black foam anterior ankle crease, covered by Coban Lite MTP to just below knees. Blue antibacterial foam dressing over open wound covered by 2x2 and Kerlix. Ready wrap applied to knee Sequential Lymphedema Exercises Comments as above. Too fatigued for Sci-Fit, supine and sitting Compression Garment Assessment Compression Garment Assessment Details foot and ankle wraps slightly long but overall good fit especially at ankles. Right lower leg wrap fits well. Patient Education Compression Garments as above Self Manual Lymphatic Drainage as able Sequential Lymphedema Exercises as able Other Other circumferential measurements sequential pneumatic pump leftLE during MLD left 30 min at 45 mm HG to right LE PT-OP-T Assessment and Plan Start: 01/10/23 16:14 Freq: Status: Active Protocol: Document 09/01/23 13:03 [facility] (Rec: 09/01/23 14:28 [facility] [id number]) Physical Therapy Assessment Goals Three Impairment impaired mobility and activity tolerance related to size of her legs Impairment uses FWW and doesn't go out of the house other than for medical appointments Short Term Goal (STG) Patient will be able to ambulate 500 ft with SPC with min assist 04/05/23: goal met STG Duration goal met [employer] And Technical Records Clerk Goal (LTG) Patient will be able to ambulate at least 1000 feet with least restrictive device to allow for return to community mobility 04/18/23: goal progress, patient reports increased ease of lifting LE's, now able to get on and off treatment table on own 75% of time 06/20/23: 06/20/23: not seen x 2 weeks in PT due to patient schedule and PT schedule. Patient medical issues persist with her starting new chemo last week resulting in moderate to severe fatigue, and need to use walker instead of cane. Goal not met 08/18/23: not met due to medical issues, including new chemo, infected great toe LTG Duration 09/29/23 Two Impairment LYmphedema life impact scale 56% Short Term Goal (STG) Decrease Lymphedema life impact scale to no greater than 40% 04/05/23: goal met STG Duration goal met Release And Technical Records Clerk Goal (LTG) Decrease lymphedema life impact scale to no greater than 25% as measure of improved activity tolerance and quality of life 04/13/23: goal progress, not fully achieved 06/20/23: not seen x 2 weeks in PT due to patient schedule and PT schedule. Patient medical issues persist with her starting new chemo last week resulting in moderate to severe fatigue, inability to don her compression tights. Goal not met 08/18/23 goal not met. Has not received new compression wraps yet. Medical issues with new chemo have complicated her ability to perform all aspects of lymphedema care. LTG Duration 09/29/23 One Impairment Lymphedema stella LE's Short Term Goal (STG) Patient to be instructed in all aspects of lymphedema care to include skin care, MLD, compression, and lymphedema exercises 04/05/23: goal met STG Duration goal met Prison Goal (LTG) Patient to be independent in all aspects of lymphedema care , LE circumferential measurements to be stable (no increase or decrease greater than 1 cm over the course of 1 week), and patient to obtain appropriate compression garments for stella LE lymphedema managements and possibly sequential pneumatic pump. 04/12/23: Patient is challenged by wearing adequate compression due to body size and shape and difficulty reaching, as well as financial concerns as she is currently living out of her car. 06/20/23:06/20/23: not seen x 2 weeks in PT due to patient schedule and PT schedule. Patient medical issues persist with her starting new chemo last week resulting in moderate to severe fatigue, with inability to don her compression tights and need to use her walker again instead of cane. Due to living out of her car she is unable to follow through with all aspects of lymphedema care. Had to have work done on her car so couldn't afford yet to order compression garments; reports will be able to . 08/18/23: patient lymphedema overall decreased but easily exacerbated due to patient not able to use pump consistently due to living in her car, and unable to reach legs fully to perform MLD, unable to elevate her LE's, or self- bandage. Awaiting new compression wraps for right LE and stella feet LTG Duration 09/29/23 Assessment Summary Assessment Mostly decreased circumferential measurements as above, less evidence for infection in toe, seeing wound care after PT today. Patient was not feeling well today after nuclear medicine test yesterday, was unable to do laundry and not wearing compression today due to fatigue and nausea. Stressed importance of her consistent compression, discussed lymphedema treatment act and need for patient to get prescription for garments. Discussed options for fitting, recommended [facility] in [place], patient to consider. Overall good fit of new garments. Consulted with RN from wound care regarding left LE coldness; patient with good pulse, potential reaction from testing yesterday. PT took pt temperature; 98.2. At this time patient would benefit from further PT for further training in donning compression as she is struggling with this, and to assure good benefit from compression. PLan to transition to independent self management when that goal met . Physical Therapy Plan Frequency and Duration Frequency of Treatment 1 Duration of treatment (weeks) 4 Plan of Care Start Date 08/31/23 Plan of Care End Date 10/01/23 Therapeutic Interventions Therapeutic Interventions Home Exercise Program, Lymphedema Management,Manual Therapy,Patient/Caregiver Education,Self-Care/Home Management,Therapeutic Activities,Therapeutic Exercises Next Visit Focus/Plan Next Note Type Treatment Note Next Visit Plan Continue CLT with emphasis on patient education for self management including donning of all compression wraps, and assure patient able to get coverage for night garments and further day garments through new LYmphedema Treatment act which just took effect.
--- NOTE | 2024-06-20 14:13 | PT.OPDS ---
Current Diagnoses Lymphedema, not elsewhere classified (09/01/23) Non-pressure chronic ulcer of other part of left lower leg with fat layer exposed (09/01/23) Soft tissue disorder, unspecified (09/01/23) Difficulty in walking, not elsewhere classified (09/01/23) Visit Care Team Role Provider Type Geovani Elder DO Family Provider Non-Staff Primary Care Provider Specialty: Medical Address: [address] [place] [address] Dr. Mike De Los Santos, [place], [address] Email: Nicolás Schrader MD Attending Provider Physician Referring Provider Specialty: Wound Care Address: [address] [place] [address], [id number] Email: [email or web address] Visit Number Visit Number 33 Discharge Summary PT-OP-B Current Condition Start: 01/10/23 16:14 Freq: Status: Active Protocol: Document 05/24/23 15:10 SAK (Rec: 05/24/23 16:59 SAK [id number]) Current Condition History of Current Condition Onset Date 22 months Current Complaints stella LE lymphedema History of Current Condition was travelling and knew something was wrong with her left leg, went to ER diagnosed with cellulitis stella LE's, was in hospital 28 days. 3 days before discharge developed lymphedema. Went to [facility] wound care, did not have good experience, no recommendation for PT. Now going to wound care at [facility] and PT was recommended. Using Vaseline due to dryness in legs. Has had multiple infections since that time. Then last year having vaginal bleeding and diagnosed with endometrial cancer. Has had 3 treatments of chemo. Can't have Obgyn surgery until infection in leg healed, possiblty more chemo. Sees oncologist tomorrow Dr. Merrick Hurtado in [place] at [facility]. Prior Treatments and Tests PMH: cellulitis, lymphedema stella LE's, peripheral neuropathy, morbid obesity, hysteroscopy, chronic non- healing ulcer left LE Future Testing and Treatments Planned Preparing for Obgyn surgery for endometrial cancer. PT-OP-C Subjective Start: 01/10/23 16:14 Freq: Status: Active Protocol: Document 09/01/23 13:03 SAK (Rec: 09/01/23 14:28 [facility] [id number]) OP-PT Subjective Patient Comments Patient Comments Had nuclear test yesterday, fatigued and nauseous afterward, still fatigued and shaky today. Feeling cold. Got compression garments: stella foot/ankle wraps and right lower leg wrap. Still seeing wound care for toe infection; today right after PT. Thinks edema better than last time. Continues with chemo, losing all her hair again. PT-OP-G Mobility & Gait Start: 01/10/23 16:14 Freq: Status: Active Protocol: Document 01/11/23 07:56 [facility] (Rec: 01/11/23 16:21 [facility] [id number]) OP Mobility Evaluation Bed Mobility Supine to and from Sit mod assist for LE's Transfers Sit to Stand use of FWW with SBA OP Gait Assessment Gait Gait Assistance Required: Independent Distance (Feet) 60 Assistive Devices Assistive Device Front Wheeled Walker Orthotic/Prosthetic Devices or Brace: No Gait Deviations General Gait Pattern Decreased Stride Length, Decreased Feet Clearance, Flexed Trunk,Wide Based Gait Comments Gait Comments limited by weight of legs due to lymphedema PT-OP-J Posture/Palpation/Skin Start: 01/10/23 16:14 Freq: Status: Active Protocol: Document 01/11/23 07:56 [facility] (Rec: 01/11/23 16:21 [facility] [id number]) Skin Assessment Other Assessments Skin Assessment Comments hyperkeratosis and elephatiasis stella LE's PT-OP-K Range of Motion Start: 01/10/23 16:14 Freq: Status: Active Protocol: Document 01/11/23 07:56 [facility] (Rec: 01/11/23 16:21 [facility] [id number]) Hip Goniometric Range of Motion Hip ROM Limitations Hip ROM Limitations Swelling Comments moderate limitations Knee Goniometric Range of Motion Knee ROM Limitations Knee ROM Limitations Swelling Comments moderate limitations Ankle and Foot Goniometric Range of Motion Ankle and Foot ROM Limitations ROM Limitations Swelling Comments moderate limitations PT-OP-M Strength Start: 01/10/23 16:14 Freq: Status: Active Protocol: Document 01/11/23 07:56 [facility] (Rec: 01/11/23 16:21 [facility] [id number]) Hip Strength Hip Manual Muscle Testing stella Comments less than anti-gravity stregnth, requires assistance for legs on and off treatment table. No MMT Knee Strength Knee Manual Muscle Testing stella Comments has anti-gravity strength ext. No MMT Ankle/Foot Strength Ankle and Foot Manual Muscle Testing stella Comments has anti gravity strength. No MMT PT-OP-N Lymphedema Start: 01/10/23 16:14 Freq: Status: Active Protocol: Document 09/01/23 13:03 [facility] (Rec: 09/01/23 14:28 [facility] [id number]) Lymphedema Measurements Lower Extremity Circumference Measurements Right Affected MT Heads 26.4 cm Mid-foot 25.5 cm Medial Malleolus 33.8 cm 10 cm From Medial Malleolus 41 cm 20 cm From Medial Malleolus 57.2 cm 30 cm From Medial Malleolus 63.3 cm 40 cm From Medial Malleolus 69.9 cm 50 cm From Medial Malleolus 68.4 cm 60 cm From Medial Malleolus 71.1 cm 70 cm From Medial Malleolus 78.7 cm - from bottom of foot Left Affected MT Heads 24.6 cm Mid-foot 26.3 cm Medial Malleolus 35.6 cm 10 cm From Medial Malleolus 40.8 cm 20 cm From Medial Malleolus 54.8 cm 30 cm From Medial Malleolus 59.3 cm 40 cm From Medial Malleolus 61.4 cm 50 cm From Medial Malleolus 72.2 cm 60 cm From Medial Malleolus 75 cm 70 cm From Medial Malleolus 81.7 cm Knee Joint 65.5 cm - from bottom of foot. PT-OP-T Assessment and Plan Start: 01/10/23 16:14 Freq: Status: Active Protocol: Document 09/01/23 13:03 [facility] (Rec: 09/01/23 14:28 [facility] [id number]) Physical Therapy Assessment Goals Three Impairment impaired mobility and activity tolerance related to size of her legs Impairment uses FWW and doesn't go out of the house other than for medical appointments Short Term Goal (STG) Patient will be able to ambulate 500 ft with SPC with min assist 04/05/23: goal met STG Duration goal met Timekeeping Supervisor Goal (LTG) Patient will be able to ambulate at least 1000 feet with least restrictive device to allow for return to community mobility 04/18/23: goal progress, patient reports increased ease of lifting LE's, now able to get on and off treatment table on own 75% of time 06/20/23: 06/20/23: not seen x 2 weeks in PT due to patient schedule and PT schedule. Patient medical issues persist with her starting new chemo last week resulting in moderate to severe fatigue, and need to use walker instead of cane. Goal not met 08/18/23: not met due to medical issues, including new chemo, infected great toe LTG Duration 09/29/23 Two Impairment LYmphedema life impact scale 56% Short Term Goal (STG) Decrease Lymphedema life impact scale to no greater than 40% 04/05/23: goal met STG Duration goal met Correction Goal (LTG) Decrease lymphedema life impact scale to no greater than 25% as measure of improved activity tolerance and quality of life 04/13/23: goal progress, not fully achieved 06/20/23: not seen x 2 weeks in PT due to patient schedule and PT schedule. Patient medical issues persist with her starting new chemo last week resulting in moderate to severe fatigue, inability to don her compression tights. Goal not met 08/18/23 goal not met. Has not received new compression wraps yet. Medical issues with new chemo have complicated her ability to perform all aspects of lymphedema care. LTG Duration 09/29/23 One Impairment Lymphedema stella LE's Short Term Goal (STG) Patient to be instructed in all aspects of lymphedema care to include skin care, MLD, compression, and lymphedema exercises 04/05/23: goal met STG Duration goal met Correction Goal (LTG) Patient to be independent in all aspects of lymphedema care , LE circumferential measurements to be stable (no increase or decrease greater than 1 cm over the course of 1 week), and patient to obtain appropriate compression garments for stella LE lymphedema managements and possibly sequential pneumatic pump. 04/12/23: Patient is challenged by wearing adequate compression due to body size and shape and difficulty reaching, as well as financial concerns as she is currently living out of her car. 06/20/23:06/20/23: not seen x 2 weeks in PT due to patient schedule and PT schedule. Patient medical issues persist with her starting new chemo last week resulting in moderate to severe fatigue, with inability to don her compression tights and need to use her walker again instead of cane. Due to living out of her car she is unable to follow through with all aspects of lymphedema care. Had to have work done on her car so couldn't afford yet to order compression garments; reports will be able to . 08/18/23: patient lymphedema overall decreased but easily exacerbated due to patient not able to use pump consistently due to living in her car, and unable to reach legs fully to perform MLD, unable to elevate her LE's, or self- bandage. Awaiting new compression wraps for right LE and stella feet LTG Duration 09/29/23 Assessment Summary Assessment Mostly decreased circumferential measurements as above, less evidence for infection in toe, seeing wound care after PT today. Patient was not feeling well today after nuclear medicine test yesterday, was unable to do laundry and not wearing compression today due to fatigue and nausea. Stressed importance of her consistent compression, discussed lymphedema treatment act and need for patient to get prescription for garments. Discussed options for fitting, recommended [facility] in [place], patient to consider. Overall good fit of new garments. Consulted with RN from wound care regarding left LE coldness; patient with good pulse, potential reaction from testing yesterday. PT took pt temperature; 98.2. At this time patient would benefit from further PT for further training in donning compression as she is struggling with this, and to assure good benefit from compression. PLan to transition to independent self management when that goal met . Physical Therapy Plan Frequency and Duration Frequency of Treatment 1 Duration of treatment (weeks) 4 Plan of Care Start Date 08/31/23 Plan of Care End Date 10/01/23 Therapeutic Interventions Therapeutic Interventions Home Exercise Program, Lymphedema Management,Manual Therapy,Patient/Caregiver Education,Self-Care/Home Management,Therapeutic Activities,Therapeutic Exercises Next Visit Focus/Plan Next Note Type Treatment Note Next Visit Plan Continue CLT with emphasis on patient education for self management including donning of all compression wraps, and assure patient able to get coverage for night garments and further day garments through new LYmphedema Treatment act which just took effect.
== END 2024-06-22 13:57 | disposition home or self-care (01) ==
LOC: PHYS 13:00
PROVIDERS: Family Provider Student in an Organized Health Care Education/Training Program; PCP Student in an Organized Health Care Education/Training Program; Referring Provider Surgery; Visit Provider Surgery
DX: L97.822 Non-pressure chronic ulcer of other part of left lower leg with fat layer exposed (principal); I89.0 Lymphedema, not elsewhere classified; R26.2 Difficulty in walking, not elsewhere classified; M79.9 Soft tissue disorder, unspecified
CPT/HCPCS: 97016; 97110; 97140; 97163; 97530; 97535

== ENCOUNTER → 2023-09-01 14:34 | Outpatient (CLI) | payer MEDICARE, SELFPAY | LOC: WC 14:36 | PROVIDERS: Family Provider Student in an Organized Health Care Education/Training Program; PCP Student in an Organized Health Care Education/Training Program; Referring Provider Ophthalmology; Visit Provider Surgery | DX: L97.512 Non-pressure chronic ulcer of other part of right foot with fat layer exposed (principal); L03.031 Cellulitis of right toe; L53.9 Erythematous condition, unspecified; I89.0 Lymphedema, not elsewhere classified; C54.1 Malignant neoplasm of endometrium | CPT/HCPCS: 99213 ==

== ENCOUNTER → 2023-09-05 13:45 | Outpatient (CLI) | payer MEDICARE, SELFPAY | LOC: WC 13:46 | PROVIDERS: Family Provider Student in an Organized Health Care Education/Training Program; PCP Student in an Organized Health Care Education/Training Program; Referring Provider Ophthalmology; Visit Provider Surgery | DX: L97.512 Non-pressure chronic ulcer of other part of right foot with fat layer exposed (principal); R60.0 Localized edema | CPT/HCPCS: 99213 ==

== ENCOUNTER → 2023-10-06 14:10 | Outpatient (CLI) | payer MEDICARE, SELFPAY ==
--- NOTE | 2023-10-06 | OV.WND_ITS ---
Progress Note Details Patient Name: Stephanie Elliott Date: Patient Number: [id number] Clinician: Zulema Barron R.N. Patient Date of : 1955 Physician / Manager Recovery: RacielNicolás Patient SUBJECTIVE Chief Complaint This information was obtained from the Patient. I was in the hospital, and now I have a new wound on my leg. Allergies adhesive tape (Reaction: blisters), cat dander, cleaning solution, crab (Reaction: Diarrhea), grass pollen, house dust, Shellfish Containing Products (Reaction: GI upset only crabs), Tegaderm (Reaction: blisters) HPI This information was obtained from the Patient. The following HPI elements were documented for the patient's wound: Location: R hallux, RLE, LLE Duration: 08/11/23, 09/29/23 Context: infectious, lymphedema The patient is a 67 yo female with endometrial cancer and severe lower extremity lymphedema who returns today for follow up of wound to right great toe and evaluation of new ulcers on both lower extremities. She stubbed her toe on 08/11/23 while trying to sleep in her car. She completed a course of Augmentin and reports that the redness, pain, and swelling improved. She has been receiving dressing changes Iodosorb. The patient has finished lymphedema therapy and her lower extremity swelling has worsened. The new ulcers are not painful or tender and have been draining nonpurulent fluid. She denies any fever or chills. The patient has a good appetite and is taking protein supplements. Since last visit the patient was hospitalized for atrial fibrillation and was started on Xarelto. She is still homeless and has been living in her car and in hotels however she is in the process of trying to find some housing. She remains on chemotherapy for treatment of her endometrial cancer. On exam today the cellulitis of the right great toe has resolved in the skin is intact. LABS 01/05/2023: Culture grew Citrobacter braaki and Pseudomonas auruginosa 01/05/2023 Arterial US reveals limited study by body habitus but with findings suggestive of left aortoiliac inflow stenosis as well as left inguinal lymphadenopathy (differential including reactive, metastatic disease or lymphoma). 12/17/2022 Doppler: Left DP and PT is monophasic, Right DP and PT is biphasic. 12/17/2022 Culture taken after debridement and revealed MRSA, antibiotic clindamycin initiated Family History This information was obtained from the Patient. Cancer- Mother, Maternal Grandparents Heart Disease- Mother, Paternal Grandparents Social History Stephanie Elliott [id number] 1955 This information was obtained from the Patient. Never smoker Alcohol Use: rarely Homeless: staying in hotels or in her car Lives in: in her vehicle or hotels Self Care and Mobility : unable to perform dressing changes Medical History This information was obtained from the Patient. Patient has a medical history of: Cellulitis Lymphedema (bilateral lower extremities) Peripheral Neuropathy Endometrial Cancer Morbid Obesity Atrial fibrillation - 09/29/2023 Hidradenitis suppurativa (HS) - 09/29/2023 Additional Information Does patient have a history of Cancer? Yes? Complete all questions.: Yes Location of Cancer: Endometrial cancer List Treating Oncologist: Dr. Salas ([facility]) Patient underwent Radiation Treatment? If yes, answer question below.: No Surgical History This information was obtained from the Patient. Patient has a surgical history of: Hysteroscopy- Dilation and curettage- Review of Systems (ROS) This information was obtained from the Patient. Complaints and Symptoms Patient com plains of: General Notes: I have reviewed and concur with the Lower Extremity Assessment document completed by the clinician, I have reviewed and concur with the Neuropathy Assessment document completed by the clinician, I have reviewed and concur with the Review of Systems and Past Family Social History documents completed by the clinician, I have reviewed and concur with the Wound Assessment document completed by the clinician Cardiovascular (Central/Peripheral): Edema Co-Morbid Conditions: Cancer with concurrent chemotherapy, Lymphedema, Neuropathy , Obesity Hematologic/Lymphatic: Swelling Prior Wound History: Bleeding, Drainage, Erythema, Malodor, Pain Patient denies com plaints or sy m ptom s related to: Cardiovascular (Central/Peripheral): Lower extremity (leg) resting pain Co-Morbid Conditions: Diabetes, Hypertension Constitutional Symptoms (General Health) Respiratory: Cough, Shortness of Breath, Wheezing Stephanie Elliott [id number] 1955 OBJECTIVE Vitals Height/Length: 62 in (157.48 cm), Weight: 306.4 lbs (139.27 kgs), BMI: 56, Temperature: 97.9 ?F (36.61 ?C), Pulse: 88 bpm, Respiratory Rate: 20 breaths/min, Blood Pressure: 138/83 mmHg, Pulse Oximetry: 100 %. Physical Exam Constitutional: Vital signs reviewed and noted. Obese, well nourished, and in no acute distress. Alert and oriented x3. Respiratory: Even respirations without use of accessory muscles. No intercoastal retractions noted. Even and non labored respiration. Integumentary (Hair, Skin): severe bilateral lower extremity lymphedema. See wound assessment. Neurological: Sensation: Symmetric function by informal observation. Psychiatric: Orientation to time, place and person: Normal affect with normal thought pattern. Additional Information The patient's potential to heal is: fair. Lower Extremity Assessment Edema Assessment: Left Extremity: Edema is present Compression Device In Use: No Calf Measurement 34 cm from heel with left measurement of 60 cm Ankle Measurement 9 cm from heel with left measurement of 37 cm Foot Measurement 11 cm from great toe with left measurement of 26.5 cm Right Extremity: Edema is present Compression Device In Use: No Calf Measurement 34 cm from heel with right measurement of 67 cm Ankle Measurement 9 cm from heel with right measurement of 35 cm Foot Measurement 11 cm from great toe with right measurement of 24 cm Vascular Assessment Left Extremity Colors, hair growth, and conditions: Extremity Color: Pigmented Hair Growth on Extremity: No Temperature of Extremity: Warm Capilary Refill: < 3 seconds Erythema: Yes Right Extremity Colors, hair growth, and conditions: Extremity Color: Pigmented Hair Growth on Extremity: No Temperature of Extremity: Warm Capilary Refill: < 3 seconds Erythema: Yes Wound Assessment(s) Wound #4 Right Hallux is a Full Thickness Infectious and has received an outcome of Healed - no new wound(s). Initial wound encounter measurements are 0cm length x 0cm width with no measurable depth, with an area of 0 sq cm. No tunneling has been noted. No sinus tract has been noted. No undermining has been noted. There was no drainage noted. The patient reports a wound pain of level 0/10. The wound margin is epithelial resurfacing Wound bed has No, granulation, No slough, No eschar, Yes epithelialization. Stephanie Elliott [id number] 1955 The periwound skin exhibited edema. The periwound skin did not exhibit erythema. The temperature of the periwound skin is WNL. Periwound skin does not exhibit signs or symptoms of infection. Local Pulse is Doppler. Wound #5 Left, Lateral Leg - lower is an acute Full Thickness Lymphedema and has received a status of Not Healed. Initial wound encounter measurements are 1cm length x 2.4cm width x 0.3 cm depth, with an area of 2.4 sq cm and a volume of 0.72 cubic cm. Adipose is exposed. No tunneling has been noted. No sinus tract has been noted. No undermining has been noted. There is a Moderate amount of serosanguineous drainage noted which has no odor. The patient reports a wound pain of level 0/10. The wound margin is rolled Wound bed has Yes, pink, firm, granulation, Yes slough, No eschar, No epithelialization. The periwound skin exhibited edema and erythema. The periwound skin did not exhibit brawny induration, excoriation, induration, callus, crepitus, fluctuance, rash, maceration, atrophie berta, cyanosis, ecchymosis, hemosiderosis, pallor and rubor. The periwound skin was moist. The periwound skin was not friable and dry/scaly. The temperature of the periwound skin is WNL. Periwound skin does not exhibit signs or symptoms of infection. Additional Information Other devitalized tissue present: biofilm Limited to breakdown of skin: No Wound #6 Right, Posterior Leg - lower is an acute Full Thickness Lymphedema and has received a status of Not Healed. Initial wound encounter measurements are 14.1cm length x 9.6cm width x 0.1 cm depth, with an area of 135.36 sq cm and a volume of 13.536 cubic cm. Adipose is exposed. No tunneling has been noted. No sinus tract has been noted. No undermining has been noted. There is a Moderate amount of serosanguineous drainage noted which has no odor. The patient reports a wound pain of level 0/10. The wound margin is irregular Wound bed has No, granulation, Yes slough, No eschar, No epithelialization. The periwound skin exhibited edema. The periwound skin did not exhibit brawny induration, excoriation, induration, callus, crepitus, fluctuance, rash, maceration, atrophie berta, cyanosis, ecchymosis, erythema, hemosiderosis, pallor and rubor. The periwound skin was dry/scaly. The periwound skin was not friable and moist. The temperature of the periwound skin is WNL. Periwound skin does not exhibit signs or symptoms of infection. Additional Information Other devitalized tissue present: biofilm Limited to breakdown of skin: No ASSESSMENT Active Problems ICD-10 (Encounter Diagnosis) L03.031 - Cellulitis of right toe (Encounter Diagnosis) I89.0 - Lymphedema, not elsewhere classified (Encounter Diagnosis) C54.1 - Malignant neoplasm of endometrium (Encounter Diagnosis) L97.212 - Non-pressure chronic ulcer of right calf with fat layer exposed (Encounter Diagnosis) L97.222 - Non-pressure chronic ulcer of left calf with fat layer exposed General Notes Ulcer right great toe has healed. Ulcer lateral left lower extremity Ulcer posterior right lower extremity The following factors have been identified it may affect wound healing: Stephanie Elliott [id number] 1955 Devitalized tissue Bioburden Severe lymphedema Poor living conditions Obesity Chemotherapy Goals: Remove devitalized tissue Remove and prevent biofilm Reduce swelling Prevent infection Wound closure Prevent recurrence Plan: Debridement, start dressing changes with Hydrofera blue to both lower extremities, use lymphedema compression to help control swelling, referred back to lymphedema therapy for more treatment, follow up in 1 week for a recheck. PROCEDURES Wound #5 Wound #5 (Lymphedema) is located on the left, lateral leg - lower. A skin/subcutaneous tissue level surgical debridement with a total area debrided of 2.4 sq cm. was performed by Nicolás Schrader MD. Subcutaneous was removed along with devitalized tissue: biofilm, exudate and slough. The following instrument(s) were used: curette. Pain control was achieved using EMLA lidocaine/prilocaine 2.5%/2.5%. A time out was conducted prior to the start of the procedure. A minimal amount of bleeding was controlled with pressure. The procedure was tolerated well with a pain level of 0 throughout and a pain level of 0 following the procedure. Post Debridement Measurements: 1cm length x 2.4cm width x 0.4cm depth; with an area of 2.4 sq cm and a volume of 0.96 cubic cm. Additional Information Muscle fascia or bone removed and sent to pathology?: No Wound #6 Wound #6 (Lymphedema) is located on the right, posterior leg - lower. A skin/subcutaneous tissue level surgical debridement with a total area debrided of 135.36 sq cm. was performed by Nicolás Schrader MD. Subcutaneous was removed along with devitalized tissue: biofilm, exudate and slough. The following instrument(s) were used: curette. Pain control was achieved using EMLA lidocaine/prilocaine 2.5%/2.5%. A time out was conducted prior to the start of the procedure. A minimal amount of bleeding was controlled with pressure. The procedure was tolerated well with a pain level of 0 throughout and a pain level of 0 following the procedure. Post Debridement Measurements: 14.1cm length x 9.6cm width x 0.2cm depth; with an area of 135.36 sq cm and a volume of 27.072 cubic cm. Additional Information Muscle fascia or bone removed and sent to pathology?: No PLAN Wound Orders: Wound #5 Left, Lateral Leg - lower Stephanie Elliott [id number] 1955 Anesthetic Topical Xylocaine to wound bed - Applied in clinic. Hygiene May shower with wound protected, using a cast protector or plastic bag and tape Cleanser Cleanse Wound with normal saline Dressings Primary dressing - Hydrofera blue classic foam, moistened with normal saline (allow to soak for at least 30 seconds) and then wring out. Place foam directly in wound bed. Cover and secure with - Bordered silicone foam. Change Dressing - Next visit. Physician Review: Reviewed and evaluated labs. Discussed the Plan of Care @ bedside with - the patient Reviewed hospital records. I, as the physician, have reviewed the orders scribed by the center RN's and agree. Scribing Attestation I attest, as the nurse, that I scribed these orders for the physician. Wound #6 Right, Posterior Leg - lower Anesthetic Topical Xylocaine to wound bed - Applied in clinic. Hygiene May shower with wound protected, using a cast protector or plastic bag and tape Cleanser Cleanse Wound with normal saline Dressings Primary dressing - Hydrofera blue classic foam, moistened with normal saline (allow to soak for at least 30 seconds) and then wring out. Place foam directly in wound bed. Cover and secure with - Bordered silicone foam. Change Dressing - Next visit. Scribing Attestation I attest, as the nurse, that I scribed these orders for the physician. Additional Orders: Compression/Edema Control Elevation of leg(s) above the level of the heart when sitting Avoid prolonged standing in one place Compression Type: - Tetra damage cutter stockings, size G. You may also wear your own compression garments. Other Instructions: - Please attend podiatry appointment for nail care. Instructions: - Continue taking antibiotic as prescribed. Follow-Up Appointments Return Appointment - One week. Return for Nurse visit - Tuesday. Other information: If you develop fever, chills, increased pain, drainage, redness or swelling please call our office. If after hours, respond to the ER. Should you experience any significant changes in your wound(s) or have any questions regarding your home care instructions please contact the wound center @ [phone]. If after hours, contact your primary care physician or go to the hospital emergency room. Plan of Care: 01. ENSURE/ESTABLISH OPTIMAL BLOOD FLOW : - Complete lower extremity assessment - Perform non-invasive vascular testing (i.e. MIRELLA) and document findings. Consider repeating when wound healing <40% after 30 days of wound care. - Order Vascular Consult for evaluation/treatment and/or non-invasive vascular testing. 02. ASSESS FOR/TREAT INFECTION : - Evaluate for signs and symptoms of infection and document findings. - Obtain culture and sensitivity (CandS) or tissue culture when infection is suspected. (NOTE:) Consider Stephanie Elliott [id number] 1955 repeating when wound healing <40% after 30 days of wound care. - Order appropriate antibiotics based on patient presentation and culture and sensitivity results. Instruct patient on the importance of taking medication as prescribed. 03. DEBRIDE WEEKLY OR MORE OFTEN PRN : - Evaluate patient in center weekly to assess wound bed and margins for need for debridement. - Mechanical debridement: Stimulate and/or maintain acute phase of wound healing by reducing bacterial burden and devitalized/non-viable tissue. - Debridement by any method to remove devitalized/necrotic tissue to promote healing and prevent further complications. Goal is to stimulate and/or maintain acute phase of wound healing by reducing bacterial burden and devitalized/non-viable tissue. 04. OPTIMIZE GLUCOSE CONTROL and NUTRITION : - Reviewed, not applicable 05. OFFLOADING PLAN : - Evaluate plan for offloading 06. OPTIMIZE HOST FACTORS: - Assess and review patient history for wound etiology, co-morbid conditions, medication regime, and smoking history. 07. DRESSING SELECTION : - Evaluate for dressing-related factors, such as availability, wear time, adaptability and use to better optimize wound healing and patient compliance. - Choose topical treatments and/or dressing based on wound type and appearance, periwound skin condition, wound size and depth, anatomic location, volume of exudate, edema in the lower extremities, and risk or presence of infection. 08. ADVANCED MODALITIES : - Evaluate for appropriateness of Cellular Tissue Product therapy. 09. FALL PREVENTION : - Complete fall assessment. 10. PAIN MANAGEMENT : - Complete pain assessment 11. MEASURABLE GOALS for Wound Healing and/or Hyperbaric Oxygen Therapy : - Less Drainage - Decrease Inflammation - Decrease pain - Decrease Wound Dimensions - Wound Closure - Improve quality of life 12. DURATION/FREQUENCY of Wound Care Visits : - 1x weekly for 30 days - 2x weekly for nurse visits for next 30 days Electronic Signature(s) Signed By: Date: Nicolás Schrader MD 10/12/2023 08:19:46 (PT) 10/06/2023 3:19:36 PM Version Electronically Date: Signed By: Nicolás Schrader MD 10/06/2023 15:40:26 (PT) Entered By: Kate Ronquillo on 10/11/2023 10:16:32 (PT) Stephanie Elliott [id number] 1955
== END ==
PROVIDERS: Family Provider Student in an Organized Health Care Education/Training Program; PCP Student in an Organized Health Care Education/Training Program; Referring Provider Ophthalmology; Visit Provider Surgery
DX: L97.812 Non-pressure chronic ulcer of other part of right lower leg with fat layer exposed (principal); L97.822 Non-pressure chronic ulcer of other part of left lower leg with fat layer exposed; I89.0 Lymphedema, not elsewhere classified; R60.0 Localized edema; L53.9 Erythematous condition, unspecified; R23.4 Changes in skin texture; C54.1 Malignant neoplasm of endometrium; I48.91 Unspecified atrial fibrillation
CPT/HCPCS: 11042; 11045; 99213

== ENCOUNTER → 2023-10-13 14:10 | Outpatient (CLI) | payer MEDICARE, SELFPAY | LOC: WC 14:24 | PROVIDERS: Family Provider Student in an Organized Health Care Education/Training Program; PCP Student in an Organized Health Care Education/Training Program; Referring Provider Ophthalmology; Visit Provider Surgery | DX: I89.0 Lymphedema, not elsewhere classified (principal); L97.822 Non-pressure chronic ulcer of other part of left lower leg with fat layer exposed; C54.1 Malignant neoplasm of endometrium; R60.0 Localized edema; R23.4 Changes in skin texture; I48.91 Unspecified atrial fibrillation; Z59.01 Sheltered homelessness; Z79.01 Long term (current) use of anticoagulants; Z59.02 Unsheltered homelessness; E66.01 Morbid (severe) obesity due to excess calories; Z68.43 Body mass index [BMI] 50.0-59.9, adult | CPT/HCPCS: 11042; 29581 ==

== ENCOUNTER → 2023-10-17 14:42 | Outpatient (CLI) | payer MEDICARE, SELFPAY | LOC: WC 14:44 | PROVIDERS: Family Provider Student in an Organized Health Care Education/Training Program; PCP Student in an Organized Health Care Education/Training Program; Referring Provider Student in an Organized Health Care Education/Training Program; Visit Provider Surgery | DX: I89.0 Lymphedema, not elsewhere classified (principal); L97.822 Non-pressure chronic ulcer of other part of left lower leg with fat layer exposed | CPT/HCPCS: 29581 ==

== ENCOUNTER → 2023-10-20 14:58 | Outpatient (CLI) | payer MEDICARE, SELFPAY | LOC: WC 15:05 | PROVIDERS: Family Provider Student in an Organized Health Care Education/Training Program; PCP Student in an Organized Health Care Education/Training Program; Referring Provider Ophthalmology; Visit Provider Surgery | DX: L97.822 Non-pressure chronic ulcer of other part of left lower leg with fat layer exposed (principal); I89.0 Lymphedema, not elsewhere classified; I50.9 Heart failure, unspecified; C54.1 Malignant neoplasm of endometrium; Z59.02 Unsheltered homelessness | CPT/HCPCS: 11042 ==

== ENCOUNTER → 2023-10-27 14:17 | Outpatient (CLI) | payer MEDICARE, SELFPAY | LOC: WC 14:18 | PROVIDERS: Family Provider Student in an Organized Health Care Education/Training Program; PCP Student in an Organized Health Care Education/Training Program; Referring Provider Ophthalmology; Visit Provider Surgery | DX: I89.0 Lymphedema, not elsewhere classified (principal); L97.822 Non-pressure chronic ulcer of other part of left lower leg with fat layer exposed; L53.9 Erythematous condition, unspecified; Z59.9 Problem related to housing and economic circumstances, unspecified; I48.91 Unspecified atrial fibrillation | CPT/HCPCS: 11042 ==

== ENCOUNTER → 2023-11-03 14:05 | Outpatient (CLI) | payer MEDICARE, SELFPAY | LOC: WC 14:06 | PROVIDERS: Family Provider Student in an Organized Health Care Education/Training Program; PCP Student in an Organized Health Care Education/Training Program; Referring Provider Ophthalmology; Visit Provider Nurse Practitioner Family | DX: L97.822 Non-pressure chronic ulcer of other part of left lower leg with fat layer exposed (principal); I89.0 Lymphedema, not elsewhere classified; I48.91 Unspecified atrial fibrillation; Z79.01 Long term (current) use of anticoagulants | CPT/HCPCS: 11042; 29581; 99214 ==

== ENCOUNTER → 2023-11-07 10:14 | Outpatient (CLI) | payer MEDICARE, SELFPAY | LOC: WC 10:15 | PROVIDERS: Family Provider Student in an Organized Health Care Education/Training Program; PCP Student in an Organized Health Care Education/Training Program; Referring Provider Ophthalmology; Visit Provider Surgery | DX: I89.0 Lymphedema, not elsewhere classified (principal); L97.828 Non-pressure chronic ulcer of other part of left lower leg with other specified severity; I96 Gangrene, not elsewhere classified | CPT/HCPCS: 29581 ==

== ENCOUNTER → 2023-11-10 11:49 | Outpatient (CLI) | payer MEDICARE, SELFPAY | LOC: WC 11:50 | PROVIDERS: Family Provider Student in an Organized Health Care Education/Training Program; PCP Student in an Organized Health Care Education/Training Program; Referring Provider Ophthalmology; Visit Provider Surgery | DX: L97.822 Non-pressure chronic ulcer of other part of left lower leg with fat layer exposed (principal); I89.0 Lymphedema, not elsewhere classified; C54.1 Malignant neoplasm of endometrium; Z59.9 Problem related to housing and economic circumstances, unspecified; Z79.01 Long term (current) use of anticoagulants; Z79.2 Long term (current) use of antibiotics | CPT/HCPCS: 11042; 99212; 99213 ==

== ENCOUNTER → 2023-11-17 09:41 | Outpatient (CLI) | payer MEDICARE, SELFPAY | PROVIDERS: Family Provider Student in an Organized Health Care Education/Training Program; PCP Student in an Organized Health Care Education/Training Program; Referring Provider Ophthalmology; Visit Provider Surgery | DX: L97.822 Non-pressure chronic ulcer of other part of left lower leg with fat layer exposed (principal); I89.0 Lymphedema, not elsewhere classified; I48.91 Unspecified atrial fibrillation; C54.1 Malignant neoplasm of endometrium; Z79.01 Long term (current) use of anticoagulants | CPT/HCPCS: 11042; 29581 ==

== ENCOUNTER → 2023-11-24 09:19 | Outpatient (CLI) | payer MEDICARE, SELFPAY | LOC: WC 09:20 | PROVIDERS: Family Provider Student in an Organized Health Care Education/Training Program; PCP Student in an Organized Health Care Education/Training Program; Referring Provider Ophthalmology; Visit Provider Surgery | DX: I89.0 Lymphedema, not elsewhere classified (principal); L97.822 Non-pressure chronic ulcer of other part of left lower leg with fat layer exposed; L02.416 Cutaneous abscess of left lower limb; L97.512 Non-pressure chronic ulcer of other part of right foot with fat layer exposed; C54.1 Malignant neoplasm of endometrium; I48.91 Unspecified atrial fibrillation; Z79.01 Long term (current) use of anticoagulants; R60.0 Localized edema; R23.3 Spontaneous ecchymoses; L53.9 Erythematous condition, unspecified | CPT/HCPCS: 10060; 11042; 97597; 97607; 99214 ==

== ENCOUNTER → 2023-11-28 14:17 | Outpatient (CLI) | payer MEDICARE, SELFPAY | LOC: WC 14:22 | PROVIDERS: Family Provider Student in an Organized Health Care Education/Training Program; PCP Student in an Organized Health Care Education/Training Program; Referring Provider Ophthalmology; Visit Provider Surgery | DX: I89.0 Lymphedema, not elsewhere classified (principal); L97.822 Non-pressure chronic ulcer of other part of left lower leg with fat layer exposed; S91.114A Laceration without foreign body of right lesser toe(s) without damage to nail, initial encounter; L02.416 Cutaneous abscess of left lower limb; R60.0 Localized edema; R23.3 Spontaneous ecchymoses; L53.9 Erythematous condition, unspecified; R23.4 Changes in skin texture | CPT/HCPCS: 97607 ==

== ENCOUNTER → 2023-12-01 08:56 | Outpatient (CLI) | payer MEDICARE, SELFPAY | LOC: WC 08:58 | PROVIDERS: Family Provider Student in an Organized Health Care Education/Training Program; PCP Student in an Organized Health Care Education/Training Program; Referring Provider Ophthalmology; Visit Provider Surgery | DX: L97.822 Non-pressure chronic ulcer of other part of left lower leg with fat layer exposed (principal); I89.0 Lymphedema, not elsewhere classified; L97.512 Non-pressure chronic ulcer of other part of right foot with fat layer exposed; L02.416 Cutaneous abscess of left lower limb; R23.3 Spontaneous ecchymoses; C54.1 Malignant neoplasm of endometrium; I48.91 Unspecified atrial fibrillation; M79.605 Pain in left leg; Z79.01 Long term (current) use of anticoagulants | CPT/HCPCS: 11042; 97597; 97607 ==

== ENCOUNTER → 2023-12-05 09:08 | Outpatient (CLI) | payer MEDICARE, SELFPAY | LOC: WC 09:10 | PROVIDERS: Family Provider Student in an Organized Health Care Education/Training Program; PCP Student in an Organized Health Care Education/Training Program; Referring Provider Ophthalmology; Visit Provider Surgery | DX: L97.822 Non-pressure chronic ulcer of other part of left lower leg with fat layer exposed (principal); I89.0 Lymphedema, not elsewhere classified; L02.416 Cutaneous abscess of left lower limb | CPT/HCPCS: 97607 ==

== ENCOUNTER → 2023-12-08 12:50 | Outpatient (CLI) | payer MEDICARE, SELFPAY | LOC: WC 12:51 | PROVIDERS: Family Provider Student in an Organized Health Care Education/Training Program; PCP Student in an Organized Health Care Education/Training Program; Referring Provider Ophthalmology; Visit Provider Surgery | DX: L97.822 Non-pressure chronic ulcer of other part of left lower leg with fat layer exposed (principal); I89.0 Lymphedema, not elsewhere classified; L02.416 Cutaneous abscess of left lower limb; C54.1 Malignant neoplasm of endometrium; R60.0 Localized edema; I48.91 Unspecified atrial fibrillation; Z79.01 Long term (current) use of anticoagulants | CPT/HCPCS: 11042; 97607; 99213 ==

== ENCOUNTER → 2023-12-12 10:59 | Outpatient (CLI) | payer MEDICARE, SELFPAY | LOC: WC 11:03 | PROVIDERS: Family Provider Student in an Organized Health Care Education/Training Program; PCP Student in an Organized Health Care Education/Training Program; Referring Provider Ophthalmology; Visit Provider Surgery | DX: L97.822 Non-pressure chronic ulcer of other part of left lower leg with fat layer exposed (principal); I89.0 Lymphedema, not elsewhere classified; L02.416 Cutaneous abscess of left lower limb; R60.0 Localized edema | CPT/HCPCS: 29581; 97607 ==

== ENCOUNTER → 2023-12-15 14:09 | Outpatient (CLI) | payer MEDICARE, SELFPAY | LOC: WC 14:10 | PROVIDERS: Family Provider Student in an Organized Health Care Education/Training Program; PCP Student in an Organized Health Care Education/Training Program; Referring Provider Ophthalmology; Visit Provider Surgery | DX: I89.0 Lymphedema, not elsewhere classified (principal); L97.822 Non-pressure chronic ulcer of other part of left lower leg with fat layer exposed; L02.416 Cutaneous abscess of left lower limb; I48.91 Unspecified atrial fibrillation | CPT/HCPCS: 11042; 97607 ==

== ENCOUNTER → 2023-12-19 09:59 | Outpatient (CLI) | payer MEDICARE, SELFPAY | LOC: WC 10:00 | PROVIDERS: Family Provider Student in an Organized Health Care Education/Training Program; PCP Student in an Organized Health Care Education/Training Program; Referring Provider Student in an Organized Health Care Education/Training Program; Visit Provider Surgery | DX: I89.0 Lymphedema, not elsewhere classified (principal); L97.822 Non-pressure chronic ulcer of other part of left lower leg with fat layer exposed; L02.416 Cutaneous abscess of left lower limb; Z79.2 Long term (current) use of antibiotics | CPT/HCPCS: 11042; 87070; 87075; 87077; 87186; 87205; 97607; 99213 ==

== ENCOUNTER → 2023-12-23 12:51 | Outpatient (CLI) | payer MEDICARE, SELFPAY | PROVIDERS: Family Provider Student in an Organized Health Care Education/Training Program; PCP Student in an Organized Health Care Education/Training Program; Referring Provider Ophthalmology; Visit Provider Physician Assistant | DX: L97.822 Non-pressure chronic ulcer of other part of left lower leg with fat layer exposed (principal); I89.0 Lymphedema, not elsewhere classified; R21 Rash and other nonspecific skin eruption; L02.416 Cutaneous abscess of left lower limb | CPT/HCPCS: 29581 ==

== ENCOUNTER → 2023-12-26 10:07 | Outpatient (CLI) | payer MEDICARE, SELFPAY | PROVIDERS: Family Provider Student in an Organized Health Care Education/Training Program; PCP Student in an Organized Health Care Education/Training Program; Referring Provider Ophthalmology; Visit Provider Surgery | DX: I89.0 Lymphedema, not elsewhere classified (principal); L97.822 Non-pressure chronic ulcer of other part of left lower leg with fat layer exposed; R21 Rash and other nonspecific skin eruption; L02.416 Cutaneous abscess of left lower limb | CPT/HCPCS: 29581 ==

== ENCOUNTER → 2023-12-29 10:58 | Outpatient (CLI) | payer MEDICARE, SELFPAY | LOC: WC 10:59 | PROVIDERS: Family Provider Student in an Organized Health Care Education/Training Program; PCP Student in an Organized Health Care Education/Training Program; Referring Provider Ophthalmology; Visit Provider Surgery | DX: I89.0 Lymphedema, not elsewhere classified (principal); L97.822 Non-pressure chronic ulcer of other part of left lower leg with fat layer exposed; L02.416 Cutaneous abscess of left lower limb; I48.91 Unspecified atrial fibrillation | CPT/HCPCS: 11042 ==

== ENCOUNTER → 2024-01-02 14:50 | Outpatient (CLI) | payer MEDICARE, SELFPAY | LOC: WC 14:50 | PROVIDERS: Family Provider Student in an Organized Health Care Education/Training Program; PCP Student in an Organized Health Care Education/Training Program; Referring Provider Ophthalmology; Visit Provider Surgery | DX: I89.0 Lymphedema, not elsewhere classified (principal); L97.822 Non-pressure chronic ulcer of other part of left lower leg with fat layer exposed | CPT/HCPCS: 29581 ==

== ENCOUNTER → 2024-01-05 09:43 | Outpatient (CLI) | payer MEDICARE, SELFPAY | LOC: WC 09:44 | PROVIDERS: Family Provider Student in an Organized Health Care Education/Training Program; PCP Student in an Organized Health Care Education/Training Program; Referring Provider Ophthalmology; Visit Provider Surgery | DX: L97.822 Non-pressure chronic ulcer of other part of left lower leg with fat layer exposed (principal); I89.0 Lymphedema, not elsewhere classified; R21 Rash and other nonspecific skin eruption; L02.416 Cutaneous abscess of left lower limb; Z59.19 Other inadequate housing | CPT/HCPCS: 11042; 99213 ==

== ENCOUNTER → 2024-01-09 11:10 | Outpatient (CLI) | payer MEDICARE, SELFPAY | LOC: WC 11:11 | PROVIDERS: Family Provider Student in an Organized Health Care Education/Training Program; PCP Student in an Organized Health Care Education/Training Program; Referring Provider Ophthalmology; Visit Provider Surgery | DX: I89.0 Lymphedema, not elsewhere classified (principal); L97.822 Non-pressure chronic ulcer of other part of left lower leg with fat layer exposed; R21 Rash and other nonspecific skin eruption; L02.416 Cutaneous abscess of left lower limb | CPT/HCPCS: 29581; 87070; 87075; 87077; 87147; 87186; 87205 ==

== ENCOUNTER → 2024-01-12 09:02 | Outpatient (CLI) | payer MEDICARE, SELFPAY | LOC: WC 09:02 | PROVIDERS: Family Provider Student in an Organized Health Care Education/Training Program; PCP Student in an Organized Health Care Education/Training Program; Referring Provider Ophthalmology; Visit Provider Surgery | DX: L97.822 Non-pressure chronic ulcer of other part of left lower leg with fat layer exposed (principal); I89.0 Lymphedema, not elsewhere classified; L02.416 Cutaneous abscess of left lower limb; L53.9 Erythematous condition, unspecified; C54.1 Malignant neoplasm of endometrium; I48.91 Unspecified atrial fibrillation | CPT/HCPCS: 11042 ==

== ENCOUNTER → 2024-01-16 11:43 | Outpatient (CLI) | payer MEDICARE, SELFPAY | LOC: WC 11:44 | PROVIDERS: Family Provider Student in an Organized Health Care Education/Training Program; PCP Student in an Organized Health Care Education/Training Program; Referring Provider Ophthalmology; Visit Provider Surgery | DX: I89.0 Lymphedema, not elsewhere classified (principal); L02.416 Cutaneous abscess of left lower limb; L53.9 Erythematous condition, unspecified | CPT/HCPCS: 29581 ==

== ENCOUNTER → 2024-01-19 09:00 | Outpatient (CLI) | payer MEDICARE, SELFPAY | PROVIDERS: Family Provider Student in an Organized Health Care Education/Training Program; PCP Student in an Organized Health Care Education/Training Program; Referring Provider Ophthalmology; Visit Provider Surgery | DX: L97.822 Non-pressure chronic ulcer of other part of left lower leg with fat layer exposed (principal); I89.0 Lymphedema, not elsewhere classified; L53.9 Erythematous condition, unspecified; L02.416 Cutaneous abscess of left lower limb; I48.91 Unspecified atrial fibrillation | CPT/HCPCS: 11042 ==

== ENCOUNTER → 2024-01-24 12:56 | Outpatient (CLI) | payer MEDICARE, SELFPAY | PROVIDERS: Family Provider Student in an Organized Health Care Education/Training Program; PCP Student in an Organized Health Care Education/Training Program; Referring Provider Ophthalmology; Visit Provider Physician Assistant | DX: I89.0 Lymphedema, not elsewhere classified (principal); L97.822 Non-pressure chronic ulcer of other part of left lower leg with fat layer exposed; L02.416 Cutaneous abscess of left lower limb; L53.9 Erythematous condition, unspecified | CPT/HCPCS: 29581 ==

== ENCOUNTER → 2024-01-30 11:04 | Outpatient (CLI) | payer MEDICARE, SELFPAY | LOC: WC 11:05 | PROVIDERS: Family Provider Student in an Organized Health Care Education/Training Program; PCP Student in an Organized Health Care Education/Training Program; Referring Provider Ophthalmology; Visit Provider Surgery | DX: I89.0 Lymphedema, not elsewhere classified (principal); L02.416 Cutaneous abscess of left lower limb; L53.9 Erythematous condition, unspecified | CPT/HCPCS: 29581 ==

== ENCOUNTER → 2024-02-02 10:52 | Outpatient (CLI) | payer MEDICARE, SELFPAY | LOC: WC 10:53 | PROVIDERS: Family Provider Student in an Organized Health Care Education/Training Program; PCP Student in an Organized Health Care Education/Training Program; Referring Provider Ophthalmology; Visit Provider Surgery | DX: L97.822 Non-pressure chronic ulcer of other part of left lower leg with fat layer exposed (principal); I89.0 Lymphedema, not elsewhere classified; L53.9 Erythematous condition, unspecified; I48.91 Unspecified atrial fibrillation; Z79.01 Long term (current) use of anticoagulants; Z79.2 Long term (current) use of antibiotics | CPT/HCPCS: 11042; 99213 ==

== ENCOUNTER → 2024-02-06 11:22 | Outpatient (CLI) | payer MEDICARE, SELFPAY | LOC: WC 11:23 | PROVIDERS: Family Provider Student in an Organized Health Care Education/Training Program; PCP Student in an Organized Health Care Education/Training Program; Referring Provider Ophthalmology; Visit Provider Surgery | DX: I89.0 Lymphedema, not elsewhere classified (principal); L97.822 Non-pressure chronic ulcer of other part of left lower leg with fat layer exposed; L02.416 Cutaneous abscess of left lower limb; L53.9 Erythematous condition, unspecified | CPT/HCPCS: 29581 ==

== ENCOUNTER → 2024-02-09 10:16 | Outpatient (CLI) | payer MEDICARE, SELFPAY | PROVIDERS: Family Provider Student in an Organized Health Care Education/Training Program; PCP Student in an Organized Health Care Education/Training Program; Referring Provider Ophthalmology; Visit Provider Physician Assistant | DX: I89.0 Lymphedema, not elsewhere classified (principal); L97.416 Non-pressure chronic ulcer of right heel and midfoot with bone involvement without evidence of necrosis; L02.416 Cutaneous abscess of left lower limb; C54.1 Malignant neoplasm of endometrium; I48.91 Unspecified atrial fibrillation; Z79.01 Long term (current) use of anticoagulants | CPT/HCPCS: 11042; 99214 ==

== ENCOUNTER → 2024-02-13 11:19 | Outpatient (CLI) | payer MEDICARE, SELFPAY | LOC: WC 11:20 | PROVIDERS: Family Provider Student in an Organized Health Care Education/Training Program; PCP Student in an Organized Health Care Education/Training Program; Referring Provider Ophthalmology; Visit Provider Surgery | DX: I89.0 Lymphedema, not elsewhere classified (principal); L02.416 Cutaneous abscess of left lower limb; L53.9 Erythematous condition, unspecified | CPT/HCPCS: 29581 ==

== ENCOUNTER → 2024-02-16 09:26 | Outpatient (CLI) | payer MEDICARE, SELFPAY | PROVIDERS: Family Provider Student in an Organized Health Care Education/Training Program; PCP Student in an Organized Health Care Education/Training Program; Referring Provider Ophthalmology; Visit Provider Surgery | DX: L97.822 Non-pressure chronic ulcer of other part of left lower leg with fat layer exposed (principal); I89.0 Lymphedema, not elsewhere classified; L02.416 Cutaneous abscess of left lower limb; L53.9 Erythematous condition, unspecified; C54.1 Malignant neoplasm of endometrium; I48.91 Unspecified atrial fibrillation; Z79.01 Long term (current) use of anticoagulants; Z59.01 Sheltered homelessness | CPT/HCPCS: 11042 ==

== ENCOUNTER → 2024-02-20 11:28 | Outpatient (CLI) | payer MEDICARE, SELFPAY | PROVIDERS: Family Provider Student in an Organized Health Care Education/Training Program; PCP Student in an Organized Health Care Education/Training Program; Referring Provider Ophthalmology; Visit Provider Surgery | DX: I89.0 Lymphedema, not elsewhere classified (principal); S81.802A Unspecified open wound, left lower leg, initial encounter; L53.9 Erythematous condition, unspecified | CPT/HCPCS: 29581 ==

== ENCOUNTER → 2024-02-23 10:30 | Outpatient (CLI) | payer MEDICARE, SELFPAY | LOC: WC 10:31 | PROVIDERS: Family Provider Student in an Organized Health Care Education/Training Program; PCP Student in an Organized Health Care Education/Training Program; Referring Provider Ophthalmology; Visit Provider Surgery | DX: L97.822 Non-pressure chronic ulcer of other part of left lower leg with fat layer exposed (principal); I89.0 Lymphedema, not elsewhere classified; L02.416 Cutaneous abscess of left lower limb; L53.9 Erythematous condition, unspecified; I48.91 Unspecified atrial fibrillation; Z79.01 Long term (current) use of anticoagulants | CPT/HCPCS: 11042 ==

== ENCOUNTER → 2024-02-27 13:04 | Outpatient (CLI) | payer MEDICARE, SELFPAY | LOC: WC 13:05 | PROVIDERS: Family Provider Student in an Organized Health Care Education/Training Program; PCP Student in an Organized Health Care Education/Training Program; Referring Provider Ophthalmology; Visit Provider Surgery | DX: I89.0 Lymphedema, not elsewhere classified (principal); L97.822 Non-pressure chronic ulcer of other part of left lower leg with fat layer exposed; L53.9 Erythematous condition, unspecified | CPT/HCPCS: 29581 ==

== ENCOUNTER → 2024-02-29 08:35 | Outpatient (CLI) | payer MEDICARE, SELFPAY | LOC: WC 08:36 | PROVIDERS: Family Provider Student in an Organized Health Care Education/Training Program; PCP Student in an Organized Health Care Education/Training Program; Referring Provider Ophthalmology; Visit Provider Surgery | DX: I89.0 Lymphedema, not elsewhere classified (principal); L97.822 Non-pressure chronic ulcer of other part of left lower leg with fat layer exposed; S71.102A Unspecified open wound, left thigh, initial encounter; L53.9 Erythematous condition, unspecified | CPT/HCPCS: 29581 ==

== ENCOUNTER → 2024-03-08 11:01 | Outpatient (CLI) | payer MEDICARE, SELFPAY | PROVIDERS: Family Provider Student in an Organized Health Care Education/Training Program; PCP Student in an Organized Health Care Education/Training Program; Referring Provider Ophthalmology; Visit Provider Surgery | DX: I89.0 Lymphedema, not elsewhere classified (principal); L97.822 Non-pressure chronic ulcer of other part of left lower leg with fat layer exposed; L03.116 Cellulitis of left lower limb; L53.9 Erythematous condition, unspecified; E66.3 Overweight; L02.416 Cutaneous abscess of left lower limb | CPT/HCPCS: 11042; 99213 ==

== ENCOUNTER → 2024-03-12 11:08 | Outpatient (CLI) | payer MEDICARE, SELFPAY | LOC: WC 11:12 | PROVIDERS: Family Provider Student in an Organized Health Care Education/Training Program; PCP Student in an Organized Health Care Education/Training Program; Referring Provider Ophthalmology; Visit Provider Surgery | DX: I89.0 Lymphedema, not elsewhere classified (principal); L97.822 Non-pressure chronic ulcer of other part of left lower leg with fat layer exposed; L02.416 Cutaneous abscess of left lower limb | CPT/HCPCS: 99214 ==

== ENCOUNTER → 2024-03-15 11:10 | Outpatient (CLI) | payer MEDICARE, SELFPAY | PROVIDERS: Family Provider Student in an Organized Health Care Education/Training Program; PCP Student in an Organized Health Care Education/Training Program; Referring Provider Ophthalmology; Visit Provider Surgery | DX: I89.0 Lymphedema, not elsewhere classified (principal); L97.812 Non-pressure chronic ulcer of other part of right lower leg with fat layer exposed; L97.822 Non-pressure chronic ulcer of other part of left lower leg with fat layer exposed; C54.1 Malignant neoplasm of endometrium; R60.0 Localized edema; L53.9 Erythematous condition, unspecified | CPT/HCPCS: 11042; 99213 ==

== ENCOUNTER → 2024-03-19 11:39 | Outpatient (CLI) | payer MEDICARE, SELFPAY | LOC: WC 11:40 | PROVIDERS: Family Provider Student in an Organized Health Care Education/Training Program; PCP Student in an Organized Health Care Education/Training Program; Referring Provider Ophthalmology; Visit Provider Surgery | DX: L97.822 Non-pressure chronic ulcer of other part of left lower leg with fat layer exposed (principal); I89.0 Lymphedema, not elsewhere classified; L53.9 Erythematous condition, unspecified; R60.0 Localized edema | CPT/HCPCS: 99214 ==

== ENCOUNTER → 2024-03-22 13:34 | Outpatient (CLI) | payer MEDICARE, SELFPAY | LOC: WC 13:37 | PROVIDERS: Family Provider Student in an Organized Health Care Education/Training Program; PCP Student in an Organized Health Care Education/Training Program; Referring Provider Ophthalmology; Visit Provider Nurse Practitioner Family | DX: L97.822 Non-pressure chronic ulcer of other part of left lower leg with fat layer exposed (principal); I89.0 Lymphedema, not elsewhere classified; R60.0 Localized edema; Z79.01 Long term (current) use of anticoagulants | CPT/HCPCS: 11042 ==

== ENCOUNTER → 2024-03-29 11:18 | Outpatient (CLI) | payer MEDICARE, SELFPAY | LOC: WC 11:20 | PROVIDERS: Family Provider Student in an Organized Health Care Education/Training Program; PCP Student in an Organized Health Care Education/Training Program; Referring Provider Ophthalmology; Visit Provider Nurse Practitioner Family | DX: I89.0 Lymphedema, not elsewhere classified (principal); L97.812 Non-pressure chronic ulcer of other part of right lower leg with fat layer exposed; L97.822 Non-pressure chronic ulcer of other part of left lower leg with fat layer exposed; C54.1 Malignant neoplasm of endometrium; Z59.10 Inadequate housing, unspecified; G62.9 Polyneuropathy, unspecified | CPT/HCPCS: 11042; 87070; 87075; 87077; 87147; 87186; 87205; 97597 ==

== ENCOUNTER → 2024-04-02 11:49 | Outpatient (CLI) | payer MEDICARE, SELFPAY | LOC: WC 11:50 | PROVIDERS: Family Provider Student in an Organized Health Care Education/Training Program; PCP Student in an Organized Health Care Education/Training Program; Referring Provider Ophthalmology; Visit Provider Surgery | DX: L97.822 Non-pressure chronic ulcer of other part of left lower leg with fat layer exposed (principal); L97.812 Non-pressure chronic ulcer of other part of right lower leg with fat layer exposed; I89.0 Lymphedema, not elsewhere classified; R60.0 Localized edema; R21 Rash and other nonspecific skin eruption | CPT/HCPCS: 29581 ==

== ENCOUNTER → 2024-04-05 11:33 | Outpatient (CLI) | payer MEDICARE, SELFPAY | LOC: WC 11:34 | PROVIDERS: Family Provider Student in an Organized Health Care Education/Training Program; PCP Student in an Organized Health Care Education/Training Program; Referring Provider Ophthalmology; Visit Provider Surgery | DX: L97.822 Non-pressure chronic ulcer of other part of left lower leg with fat layer exposed (principal); I89.0 Lymphedema, not elsewhere classified; R60.0 Localized edema; L53.9 Erythematous condition, unspecified; I48.91 Unspecified atrial fibrillation; L08.89 Other specified local infections of the skin and subcutaneous tissue; Z59.10 Inadequate housing, unspecified; Z79.01 Long term (current) use of anticoagulants | CPT/HCPCS: 11042; 99213 ==

== ENCOUNTER → 2024-04-09 13:03 | Outpatient (CLI) | payer MEDICARE, SELFPAY | LOC: WC 13:08 | PROVIDERS: Family Provider Student in an Organized Health Care Education/Training Program; PCP Student in an Organized Health Care Education/Training Program; Referring Provider Ophthalmology; Visit Provider Surgery | DX: L97.822 Non-pressure chronic ulcer of other part of left lower leg with fat layer exposed (principal); I89.0 Lymphedema, not elsewhere classified; L53.9 Erythematous condition, unspecified; R21 Rash and other nonspecific skin eruption | CPT/HCPCS: 29581 ==

== ENCOUNTER → 2024-04-12 11:26 | Outpatient (CLI) | payer MEDICARE, SELFPAY | LOC: WC 11:27 | PROVIDERS: Family Provider Student in an Organized Health Care Education/Training Program; PCP Student in an Organized Health Care Education/Training Program; Referring Provider Ophthalmology; Visit Provider Surgery | DX: I89.0 Lymphedema, not elsewhere classified (principal); L97.821 Non-pressure chronic ulcer of other part of left lower leg limited to breakdown of skin; L97.822 Non-pressure chronic ulcer of other part of left lower leg with fat layer exposed; L53.8 Other specified erythematous conditions; C54.1 Malignant neoplasm of endometrium; R60.0 Localized edema | CPT/HCPCS: 11042; 97597; 97598; 99213 ==

== ENCOUNTER → 2024-04-19 12:02 | Outpatient (CLI) | payer MEDICARE, SELFPAY | PROVIDERS: Family Provider Student in an Organized Health Care Education/Training Program; PCP Student in an Organized Health Care Education/Training Program; Referring Provider Ophthalmology; Visit Provider Surgery | DX: L97.822 Non-pressure chronic ulcer of other part of left lower leg with fat layer exposed (principal); L97.821 Non-pressure chronic ulcer of other part of left lower leg limited to breakdown of skin; I89.0 Lymphedema, not elsewhere classified; L53.9 Erythematous condition, unspecified; Z79.01 Long term (current) use of anticoagulants; Z79.2 Long term (current) use of antibiotics | CPT/HCPCS: 11042; 99213 ==

== ENCOUNTER → 2024-04-23 11:06 | Outpatient (CLI) | payer MEDICARE, SELFPAY | PROVIDERS: Family Provider Student in an Organized Health Care Education/Training Program; PCP Student in an Organized Health Care Education/Training Program; Referring Provider Ophthalmology; Visit Provider Surgery | DX: I89.0 Lymphedema, not elsewhere classified (principal); L97.822 Non-pressure chronic ulcer of other part of left lower leg with fat layer exposed; L97.821 Non-pressure chronic ulcer of other part of left lower leg limited to breakdown of skin; L53.9 Erythematous condition, unspecified | CPT/HCPCS: 99214 ==

== ENCOUNTER → 2024-04-26 15:04 | Outpatient (CLI) | payer MEDICARE, SELFPAY | PROVIDERS: Family Provider Student in an Organized Health Care Education/Training Program; PCP Student in an Organized Health Care Education/Training Program; Referring Provider Student in an Organized Health Care Education/Training Program; Visit Provider Surgery | DX: L97.822 Non-pressure chronic ulcer of other part of left lower leg with fat layer exposed (principal); I89.0 Lymphedema, not elsewhere classified; R60.0 Localized edema; L53.9 Erythematous condition, unspecified; Z79.01 Long term (current) use of anticoagulants; Z59.19 Other inadequate housing | CPT/HCPCS: 11042 ==

== ENCOUNTER → 2024-05-01 11:21 | Outpatient (CLI) | payer MEDICARE, SELFPAY | PROVIDERS: Family Provider Student in an Organized Health Care Education/Training Program; PCP Student in an Organized Health Care Education/Training Program; Referring Provider Ophthalmology; Visit Provider Surgery | DX: I89.0 Lymphedema, not elsewhere classified (principal); L97.822 Non-pressure chronic ulcer of other part of left lower leg with fat layer exposed; I87.2 Venous insufficiency (chronic) (peripheral); L53.9 Erythematous condition, unspecified | CPT/HCPCS: 11042; 29581 ==

== ENCOUNTER → 2024-05-04 11:05 | Outpatient (CLI) | payer MEDICARE, SELFPAY | PROVIDERS: Family Provider Student in an Organized Health Care Education/Training Program; PCP Student in an Organized Health Care Education/Training Program; Referring Provider Ophthalmology; Visit Provider Nurse Practitioner Family | DX: I89.0 Lymphedema, not elsewhere classified (principal); L97.822 Non-pressure chronic ulcer of other part of left lower leg with fat layer exposed; R60.0 Localized edema | CPT/HCPCS: 29581 ==

== ENCOUNTER → 2024-05-07 11:06 | Outpatient (CLI) | payer MEDICARE, SELFPAY | LOC: WC 11:15 | PROVIDERS: Family Provider Student in an Organized Health Care Education/Training Program; PCP Student in an Organized Health Care Education/Training Program; Referring Provider Ophthalmology; Visit Provider Surgery | DX: I89.0 Lymphedema, not elsewhere classified (principal); L97.822 Non-pressure chronic ulcer of other part of left lower leg with fat layer exposed; R60.0 Localized edema; Z79.01 Long term (current) use of anticoagulants; Z59.01 Sheltered homelessness | CPT/HCPCS: 11042; 99213 ==

== ENCOUNTER → 2024-05-17 14:25 | Outpatient (CLI) | payer MEDICARE, SELFPAY | LOC: WC 14:27 | PROVIDERS: Family Provider Student in an Organized Health Care Education/Training Program; PCP Student in an Organized Health Care Education/Training Program; Referring Provider Ophthalmology; Visit Provider Surgery | DX: I89.0 Lymphedema, not elsewhere classified (principal); L97.822 Non-pressure chronic ulcer of other part of left lower leg with fat layer exposed; R60.0 Localized edema; E66.3 Overweight; Z79.01 Long term (current) use of anticoagulants | CPT/HCPCS: 11042 ==

== ENCOUNTER → 2024-05-24 11:18 | Outpatient (CLI) | payer MEDICARE, SELFPAY | PROVIDERS: Family Provider Student in an Organized Health Care Education/Training Program; PCP Student in an Organized Health Care Education/Training Program; Referring Provider Ophthalmology; Visit Provider Surgery | DX: I89.0 Lymphedema, not elsewhere classified (principal); L97.822 Non-pressure chronic ulcer of other part of left lower leg with fat layer exposed; Z79.01 Long term (current) use of anticoagulants | CPT/HCPCS: 11042; 29581 ==

== ENCOUNTER → 2024-05-28 13:11 | Outpatient (CLI) | payer MEDICARE, SELFPAY | PROVIDERS: Family Provider Student in an Organized Health Care Education/Training Program; PCP Student in an Organized Health Care Education/Training Program; Referring Provider Ophthalmology; Visit Provider Surgery | DX: I89.0 Lymphedema, not elsewhere classified (principal); L97.822 Non-pressure chronic ulcer of other part of left lower leg with fat layer exposed | CPT/HCPCS: 29581 ==

== ENCOUNTER → 2024-05-31 11:03 | Outpatient (CLI) | payer MEDICARE, SELFPAY | PROVIDERS: Family Provider Student in an Organized Health Care Education/Training Program; PCP Student in an Organized Health Care Education/Training Program; Referring Provider Ophthalmology; Visit Provider Surgery | DX: I89.0 Lymphedema, not elsewhere classified (principal) | CPT/HCPCS: 29581; 99213 ==

== ENCOUNTER → 2024-06-04 12:52 | Outpatient (CLI) | payer MEDICARE, SELFPAY | LOC: WC 12:54 | PROVIDERS: Family Provider Student in an Organized Health Care Education/Training Program; PCP Student in an Organized Health Care Education/Training Program; Referring Provider Ophthalmology; Visit Provider Surgery | DX: I89.0 Lymphedema, not elsewhere classified (principal); L97.822 Non-pressure chronic ulcer of other part of left lower leg with fat layer exposed; R60.0 Localized edema | CPT/HCPCS: 29581 ==

== ENCOUNTER → 2024-06-07 11:36 | Outpatient (CLI) | payer MEDICARE, SELFPAY | LOC: WC 11:37 | PROVIDERS: Family Provider Student in an Organized Health Care Education/Training Program; PCP Student in an Organized Health Care Education/Training Program; Referring Provider Ophthalmology; Visit Provider Surgery | DX: I89.0 Lymphedema, not elsewhere classified (principal); G62.9 Polyneuropathy, unspecified; E66.3 Overweight | CPT/HCPCS: 29581; 99213 ==

== ENCOUNTER → 2024-06-20 09:16 | Outpatient (CLI) | payer MEDICARE, SELFPAY | LOC: WC 09:17 | PROVIDERS: Family Provider Student in an Organized Health Care Education/Training Program; PCP Student in an Organized Health Care Education/Training Program; Referring Provider Ophthalmology; Visit Provider Surgery | DX: I89.0 Lymphedema, not elsewhere classified (principal); L97.822 Non-pressure chronic ulcer of other part of left lower leg with fat layer exposed; L53.9 Erythematous condition, unspecified; R60.0 Localized edema | CPT/HCPCS: 29581; 99213 ==

== ENCOUNTER → 2024-06-22 14:22 | Outpatient (CLI) | payer MEDICARE, SELFPAY | LOC: WC 14:23 | PROVIDERS: Family Provider Student in an Organized Health Care Education/Training Program; PCP Student in an Organized Health Care Education/Training Program; Referring Provider Ophthalmology; Visit Provider Physician Assistant | DX: I89.0 Lymphedema, not elsewhere classified (principal); L97.821 Non-pressure chronic ulcer of other part of left lower leg limited to breakdown of skin; L53.9 Erythematous condition, unspecified; R21 Rash and other nonspecific skin eruption | CPT/HCPCS: 29581 ==

== ENCOUNTER → 2024-06-25 14:00 | Outpatient (CLI) | payer MEDICARE, SELFPAY | LOC: WC 14:08 | PROVIDERS: Family Provider Student in an Organized Health Care Education/Training Program; PCP Student in an Organized Health Care Education/Training Program; Referring Provider Ophthalmology; Visit Provider Surgery | DX: I89.0 Lymphedema, not elsewhere classified (principal); L97.821 Non-pressure chronic ulcer of other part of left lower leg limited to breakdown of skin; R60.0 Localized edema; L53.9 Erythematous condition, unspecified; R21 Rash and other nonspecific skin eruption; D64.9 Anemia, unspecified; Z79.01 Long term (current) use of anticoagulants | CPT/HCPCS: 87070; 87075; 87205; 97602; 99213 ==

== ENCOUNTER → 2024-06-28 13:07 | Outpatient (CLI) | payer MEDICARE, SELFPAY | LOC: WC 13:08 | PROVIDERS: Family Provider Student in an Organized Health Care Education/Training Program; PCP Student in an Organized Health Care Education/Training Program; Referring Provider Ophthalmology; Visit Provider Physician Assistant | DX: I89.0 Lymphedema, not elsewhere classified (principal); L53.9 Erythematous condition, unspecified; R21 Rash and other nonspecific skin eruption | CPT/HCPCS: 29581 ==

== ENCOUNTER → 2024-07-02 11:19 | Outpatient (CLI) | payer MEDICARE, SELFPAY | LOC: WC 11:20 | PROVIDERS: Family Provider Student in an Organized Health Care Education/Training Program; PCP Student in an Organized Health Care Education/Training Program; Referring Provider Ophthalmology; Visit Provider Surgery | DX: I89.0 Lymphedema, not elsewhere classified (principal); L97.821 Non-pressure chronic ulcer of other part of left lower leg limited to breakdown of skin; L53.8 Other specified erythematous conditions; R23.4 Changes in skin texture | CPT/HCPCS: 29581 ==

== ENCOUNTER → 2024-07-05 10:16 | Outpatient (CLI) | payer MEDICARE, SELFPAY | PROVIDERS: Family Provider Student in an Organized Health Care Education/Training Program; PCP Student in an Organized Health Care Education/Training Program; Referring Provider Ophthalmology; Visit Provider Surgery | DX: I89.0 Lymphedema, not elsewhere classified (principal); C54.1 Malignant neoplasm of endometrium; R23.4 Changes in skin texture; L53.8 Other specified erythematous conditions; R21 Rash and other nonspecific skin eruption | CPT/HCPCS: 99213 ==

== ENCOUNTER → 2024-07-09 14:07 | Outpatient (CLI) | payer MEDICARE, SELFPAY | PROVIDERS: Family Provider Student in an Organized Health Care Education/Training Program; PCP Student in an Organized Health Care Education/Training Program; Referring Provider Ophthalmology; Visit Provider Surgery | DX: I89.0 Lymphedema, not elsewhere classified (principal); L97.821 Non-pressure chronic ulcer of other part of left lower leg limited to breakdown of skin; L53.9 Erythematous condition, unspecified; R21 Rash and other nonspecific skin eruption; L08.89 Other specified local infections of the skin and subcutaneous tissue | CPT/HCPCS: 29581; 87070; 87075; 87077; 87147; 87186; 87205 ==

== ENCOUNTER → 2024-07-12 10:05 | Outpatient (CLI) | payer MEDICARE, SELFPAY | PROVIDERS: Family Provider Student in an Organized Health Care Education/Training Program; PCP Student in an Organized Health Care Education/Training Program; Referring Provider Ophthalmology; Visit Provider Surgery | DX: I89.0 Lymphedema, not elsewhere classified (principal); L97.821 Non-pressure chronic ulcer of other part of left lower leg limited to breakdown of skin; L53.9 Erythematous condition, unspecified; R60.0 Localized edema; R21 Rash and other nonspecific skin eruption; Z79.01 Long term (current) use of anticoagulants | CPT/HCPCS: 99213 ==

== ENCOUNTER → 2024-07-18 09:58 | Outpatient (CLI) | payer MEDICARE, SELFPAY | PROVIDERS: Family Provider Student in an Organized Health Care Education/Training Program; PCP Student in an Organized Health Care Education/Training Program; Referring Provider Student in an Organized Health Care Education/Training Program; Visit Provider Surgery | DX: I89.0 Lymphedema, not elsewhere classified (principal); L97.821 Non-pressure chronic ulcer of other part of left lower leg limited to breakdown of skin; Z79.01 Long term (current) use of anticoagulants; Z59.01 Sheltered homelessness | CPT/HCPCS: 29581; 99213 ==

== ENCOUNTER → 2024-07-20 08:30 | Outpatient (CLI) | payer MEDICARE, SELFPAY | LOC: WC 08:31 | PROVIDERS: Family Provider Student in an Organized Health Care Education/Training Program; PCP Student in an Organized Health Care Education/Training Program; Referring Provider Ophthalmology; Visit Provider Physician Assistant | DX: I89.0 Lymphedema, not elsewhere classified (principal); L97.821 Non-pressure chronic ulcer of other part of left lower leg limited to breakdown of skin; R60.0 Localized edema; R23.4 Changes in skin texture | CPT/HCPCS: 29581 ==

== ENCOUNTER → 2024-07-23 09:32 | Outpatient (CLI) | payer MEDICARE, SELFPAY | PROVIDERS: Family Provider Student in an Organized Health Care Education/Training Program; PCP Student in an Organized Health Care Education/Training Program; Referring Provider Ophthalmology; Visit Provider Surgery | DX: I89.0 Lymphedema, not elsewhere classified (principal); C54.1 Malignant neoplasm of endometrium; L97.811 Non-pressure chronic ulcer of other part of right lower leg limited to breakdown of skin; L97.821 Non-pressure chronic ulcer of other part of left lower leg limited to breakdown of skin; L53.9 Erythematous condition, unspecified; R60.0 Localized edema | CPT/HCPCS: 99213 ==

== ENCOUNTER → 2024-07-25 09:31 | Outpatient (CLI) | payer MEDICARE, SELFPAY | PROVIDERS: Family Provider Student in an Organized Health Care Education/Training Program; PCP Student in an Organized Health Care Education/Training Program; Referring Provider Ophthalmology; Visit Provider Physician Assistant | DX: I89.0 Lymphedema, not elsewhere classified (principal); L97.821 Non-pressure chronic ulcer of other part of left lower leg limited to breakdown of skin; L97.811 Non-pressure chronic ulcer of other part of right lower leg limited to breakdown of skin | CPT/HCPCS: 99213 ==

== ENCOUNTER → 2024-07-30 10:58 | Outpatient (CLI) | payer MEDICARE, SELFPAY | PROVIDERS: Family Provider Student in an Organized Health Care Education/Training Program; PCP Student in an Organized Health Care Education/Training Program; Referring Provider Ophthalmology; Visit Provider Surgery | DX: I89.0 Lymphedema, not elsewhere classified (principal); E66.9 Obesity, unspecified; Z68.43 Body mass index [BMI] 50.0-59.9, adult; Z79.01 Long term (current) use of anticoagulants | CPT/HCPCS: 99213 ==

== ENCOUNTER → 2024-08-09 09:17 | Outpatient (CLI) | payer MEDICARE, SELFPAY | LOC: WC 09:18 | PROVIDERS: Family Provider Student in an Organized Health Care Education/Training Program; PCP Student in an Organized Health Care Education/Training Program; Referring Provider Ophthalmology; Visit Provider Surgery | DX: I89.0 Lymphedema, not elsewhere classified (principal); L97.811 Non-pressure chronic ulcer of other part of right lower leg limited to breakdown of skin; L97.812 Non-pressure chronic ulcer of other part of right lower leg with fat layer exposed; G62.9 Polyneuropathy, unspecified; E66.9 Obesity, unspecified; Z68.43 Body mass index [BMI] 50.0-59.9, adult | CPT/HCPCS: 99213 ==

== ENCOUNTER → 2024-08-13 09:34 | Outpatient (CLI) | payer MEDICARE, SELFPAY | LOC: WC 10:10 | PROVIDERS: Family Provider Student in an Organized Health Care Education/Training Program; PCP Student in an Organized Health Care Education/Training Program; Referring Provider Ophthalmology; Visit Provider Surgery | DX: L97.821 Non-pressure chronic ulcer of other part of left lower leg limited to breakdown of skin (principal); L97.811 Non-pressure chronic ulcer of other part of right lower leg limited to breakdown of skin; I89.0 Lymphedema, not elsewhere classified; L53.9 Erythematous condition, unspecified; R60.0 Localized edema; R23.4 Changes in skin texture | CPT/HCPCS: 99213; 99214 ==

== ENCOUNTER → 2024-08-16 09:27 | Outpatient (CLI) | payer MEDICARE, SELFPAY | PROVIDERS: Family Provider Student in an Organized Health Care Education/Training Program; PCP Student in an Organized Health Care Education/Training Program; Referring Provider Student in an Organized Health Care Education/Training Program; Visit Provider Surgery | DX: I89.0 Lymphedema, not elsewhere classified (principal); L97.811 Non-pressure chronic ulcer of other part of right lower leg limited to breakdown of skin; L97.821 Non-pressure chronic ulcer of other part of left lower leg limited to breakdown of skin; L53.9 Erythematous condition, unspecified; R60.0 Localized edema; R21 Rash and other nonspecific skin eruption | CPT/HCPCS: 99213 ==

== ENCOUNTER → 2024-08-20 15:12 | Outpatient (CLI) | payer MEDICARE, SELFPAY | PROVIDERS: Family Provider Student in an Organized Health Care Education/Training Program; PCP Student in an Organized Health Care Education/Training Program; Referring Provider Ophthalmology; Visit Provider Physician Assistant | DX: I89.0 Lymphedema, not elsewhere classified (principal); L97.811 Non-pressure chronic ulcer of other part of right lower leg limited to breakdown of skin; L97.821 Non-pressure chronic ulcer of other part of left lower leg limited to breakdown of skin; R60.0 Localized edema; L53.9 Erythematous condition, unspecified; R21 Rash and other nonspecific skin eruption | CPT/HCPCS: 29581 ==

== ENCOUNTER → 2024-08-23 09:19 | Outpatient (CLI) | payer MEDICARE, SELFPAY | PROVIDERS: Family Provider Student in an Organized Health Care Education/Training Program; PCP Student in an Organized Health Care Education/Training Program; Referring Provider Ophthalmology; Visit Provider Physician Assistant | DX: I89.0 Lymphedema, not elsewhere classified (principal); L97.811 Non-pressure chronic ulcer of other part of right lower leg limited to breakdown of skin; L97.821 Non-pressure chronic ulcer of other part of left lower leg limited to breakdown of skin; L53.9 Erythematous condition, unspecified; R60.0 Localized edema | CPT/HCPCS: 29581 ==

== ENCOUNTER → 2024-09-06 10:05 | Outpatient (CLI) | payer MEDICARE, SELFPAY | PROVIDERS: Family Provider Student in an Organized Health Care Education/Training Program; PCP Student in an Organized Health Care Education/Training Program; Referring Provider Ophthalmology; Visit Provider Surgery | DX: I89.0 Lymphedema, not elsewhere classified (principal); R60.0 Localized edema; G62.9 Polyneuropathy, unspecified | CPT/HCPCS: 99213 ==

== ENCOUNTER → 2024-09-13 09:52 | Outpatient (CLI) | payer MEDICARE, SELFPAY | PROVIDERS: Family Provider Student in an Organized Health Care Education/Training Program; PCP Student in an Organized Health Care Education/Training Program; Referring Provider Ophthalmology; Visit Provider Surgery | DX: I89.0 Lymphedema, not elsewhere classified (principal); E66.9 Obesity, unspecified; Z68.43 Body mass index [BMI] 50.0-59.9, adult | CPT/HCPCS: 99211; 99213 ==

== ENCOUNTER 2024-09-19 13:45 | Outpatient (RCR) | payer MEDICARE, SELFPAY ==
--- NOTE | 2023-11-24 16:03 | PT.OIE ---
Current Diagnoses Lymphedema, not elsewhere classified (11/24/23) Visit Care Team Role Provider Type Geovani Elder DO Family Provider Non-Staff Primary Care Provider Specialty: Medical Address: [address] [place] [address] [address], [place], [address] Email: Nicolás Schrader MD Attending Provider Physician Referring Provider Specialty: Wound Care Address: [address] [place] [address], [id number] Email: [email or web address] Physical Therapy Initial Evaluation PT-OP-A Visit Information Start: 11/24/23 08:48 Freq: Status: Active Protocol: Document 11/24/23 09:30 [facility] (Rec: 11/24/23 09:04 [facility] [id number]) Out-Patient Physical Therapy Visit Information Visit Information Visit Type Initial Evaluation Visit Start Time 09:30 Visit Stop Time 10:30 Visit Number 1 Evaluation Information Evaluation Date 11/24/23 Precautions Precautions wound vac right LE PT-OP-B Current Condition Start: 11/24/23 08:48 Freq: Status: Active Protocol: Document 11/24/23 09:30 [facility] (Rec: 11/24/23 09:04 [facility] [id number]) Current Condition History of Current Condition Onset Date 2+ years Current Complaints lymphedema bilateral LE's History of Current Condition Patient has long history of lymphedema stella LE's, previously seen in this clinic . Discharged from PT after wounds healed, fit for bilateral velcro compression wraps. Patient has now developed multiple new wounds and her lymphedema has worsened. Contributing factors are treatment for pelvic cancer, currently receiving chemotherapy treatments, as well as homelessness and difficulty performing self management program, plus obesity. States she cant bend to put on velcro wraps, has been wearing compression tights: Bioflect. Prior Treatments and Tests prior wound care and lymphedema management Treatment Goals Patient/Caregiver Goals Decrease lymphedema and be able to self manage lymphedema Prior Functional Status Baseline Function- ADL's Modified Independent Baseline Function- Mobility Modified Independent Baseline Function- Gait indep short distances with FWW Baseline Function- Other homeless, occasional stays in hotel where she is able to use her pump Current Functional Impairments (Reported) Functional Limitations- ADL's modfied indep Functional Limitations- Mobility/Gait indep very short distances Functional Limitations- 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 Functional Limitations- Other difficulty with donning and doffing compression garments, inability to regularly elevate her legs, low activity tolerance, obesity, homelessness PT-OP-C Subjective Start: 11/24/23 08:48 Freq: Status: Active Protocol: Document 11/24/23 09:30 [facility] (Rec: 11/24/23 16:01 [facility] [id number]) OP-PT Subjective Patient Comments Patient Comments Pt late due to wound care appt running long, patient tearful and fatigued from emotional response to having wounds again as well as fatigue from ongoing chemo Patient Questionnaires Lymphedema Life Impact Score Lymphedema Score 34 PT-OP-F Manual Assessment Start: 11/24/23 08:48 Freq: Status: Active Protocol: Document 11/24/23 09:30 [facility] (Rec: 11/24/23 16:01 [facility] [id number]) Manual Assessments Soft Tissue Assessment Soft Tissue Mobility Assessment hyperkeratosis and fibrosis bilateral lower legs PT-OP-G Mobility & Gait Start: 11/24/23 08:48 Freq: Status: Active Protocol: Document 11/24/23 09:30 [facility] (Rec: 11/24/23 16:01 [facility] [id number]) OP Gait Assessment Gait Gait Assistance Required: Independent Assistive Devices Assistive Device Front Wheeled Walker Gait Deviations General Gait Pattern Antalgic,Decreased Stride Length,Decreased Feet Clearance Factors Limiting Gait Function Factors Limiting Gait Function Decreased Activity Tolerance, Decreased Strength PT-OP-K Range of Motion Start: 11/24/23 08:48 Freq: Status: Active Protocol: Document 11/24/23 09:30 [facility] (Rec: 11/24/23 16:01 [facility] [id number]) Hip Goniometric Range of Motion Hip stella Hip ROM WFL No Comments mod decrease Hip ROM Limitations Hip ROM Limitations Soft Tissue Tightness,Muscle Weakness Knee Goniometric Range of Motion Knee stella Knee ROM WFL No Comments flexion limited by tissue approximation Ankle and Foot Goniometric Range of Motion Ankle and Foot stella Ankle/Foot ROM WFL Yes PT-OP-L Special Tests Start: 11/24/23 08:48 Freq: Status: Active Protocol: Document 11/24/23 09:30 [facility] (Rec: 11/24/23 16:02 [facility] [id number]) Special Tests Other Special Tests Special Tests Stemmer sign positive bilaterally PT-OP-M Strength Start: 11/24/23 08:48 Freq: Status: Active Protocol: Document 11/24/23 09:30 [facility] (Rec: 11/24/23 16:03 [facility] [id number]) Hip Strength Hip Manual Muscle Testing stella Comments limited to less than 3/5 stella, impacted by both muscle weakness and weight of legs with lymphedema Knee Strength Knee Manual Muscle Testing stella Flexion (S2) 3+ Fair+ Extension (L3) 3+ Fair+ Ankle/Foot Strength Ankle and Foot Manual Muscle Testing stella Dorsiflexion (L4) 4- Good- Plantarflexion (S1) 4- Good- PT-OP-N Lymphedema Start: 11/24/23 08:48 Freq: Status: Active Protocol: Document 11/24/23 09:30 [facility] (Rec: 11/24/23 09:19 [facility] [id number]) Lymphedema Measurements Lower Extremity Circumference Measurements Left Affected MT Heads 25.6 cm Mid-foot 25.3 cm Medial Malleolus 34.4 cm 10 cm From Medial Malleolus 49.5 cm 20 cm From Medial Malleolus 54.8 cm 30 cm From Medial Malleolus 63.3 cm 40 cm From Medial Malleolus 68.5 cm 50 cm From Medial Malleolus 72.6 cm 60 cm From Medial Malleolus 75.5 cm Knee Joint 68.2 cm right affected MT Heads 27.1 cm Mid-foot 56.8 cm Medial Malleolus 67.8 cm 10 cm From Medial Malleolus 72.2 cm 20 cm From Medial Malleolus 70.5 cm 30 cm From Medial Malleolus 72 cm 40 cm From Medial Malleolus 71.8 cm 50 cm From Medial Malleolus 73.5 cm 60 cm From Medial Malleolus 78 cm Knee Joint 70 cm PT-OP-Q Treatments Start: 11/24/23 08:48 Freq: Status: Active Protocol: Document 11/24/23 09:30 [facility] (Rec: 11/24/23 09:04 [facility] [id number]) Lymphedema Treatment Manual Lymphatic Drainage Location stella LE's Duration 20 Lymphedema Wrapping Materials Stella LE's with Coban Lite system toes to knees Sequential Lymphedema Exercises Comments encouraged increased ex as tolerated Other Other circumrerential measurements application of Cetaphil lotion stella lower legs for skin care PT-OP-T Assessment and Plan Start: 11/24/23 08:48 Freq: Status: Active Protocol: Document 11/24/23 09:30 [facility] (Rec: 11/24/23 09:04 [facility] [id number]) Physical Therapy Assessment Rehab Potential Rehabilitation Potential Fair Evaluation Complexity Number of Personal Factors/Comorbidities 3 or More Number of Body Systems Impaired 4 or More Clinical Presentation at Evaluation Unstable Impairments Impairments Activity Tolerance,Edema,Gait, Soft Tissue Mobility Goals Two Impairment Lymphedema life impact scale score 34% Short Term Goal (STG) Decrease score to no greater than24% as measure of improved activity tolerance and quality of life Penitentiary Goal (LTG) Decrease lymphedema life impact scale score to no greater than 15% as measure of improved ability to self manage her lymphedema and improved quality of life LTG Duration 02/24/24 One Impairment lymphedema stella LE's Short Term Goal (STG) Instruct and review all aspects of lymphedema care including skin care, manual lymphatic drainage and use of her lymphedema pump, compression, exercise, and elevation. STG Duration 12/28/23 Helminthologist Goal (LTG) Patient to be able to self manage all aspects of her lymphedema including donning and doffing appropriate compression garments and use of sequential pneumatic pump LTG Duration 02/22/24 Three Impairment gait impairment Impairment uses FWW and doesn't ambulate significantly other than to come for medical appointments Helminthologist Goal (LTG) Patient able to ambulate for at least 10 minutes with least restrictive device LTG Duration 02/22/24 Progress Towards Goals Progress Towards Goals Progressing Toward Goals Assessment Summary Assessment Patient presents to PT with function-limiting lymphedema with development of multiple new wounds, being seen in wound care and had wound vac applied to worst wound which is on left lower lateral leg. Also wound right second toe, left medial thigh. She has previously been seen in both wound care and PT for lymphedema management but her ability to self manage is poor given her current treatment for pelvic cancer with chem, homelessness, low activity tolerance, and obesity. She has difficulty with donning and doffing her compression garments and only occasionally is able to use her lymphedema pump due to homelessness. Her chemo impairs her wound healing, contributes to low activity tolerance and ability to self manage. Feel patient 's needs would best be served by being in a care facility at this time but so far despite social work intervention in the past this has not been accomplished. She would benefit from PT for lymphedema management which will include skin care, manual lymphatic drainage, compression, elevation, and exercise. POC was discussed and patient was in agreement. Physical Therapy Plan Frequency and Duration Frequency of Treatment 20 visits Duration of treatment (weeks) 12 Plan of Care Start Date 11/24/23 Plan of Care End Date 02/24/24 Therapeutic Interventions Therapeutic Interventions Gait Training,Home Exercise Program,Lymphedema Management, Manual Therapy,Patient/ Caregiver Education,Self-Care/ Home Management,Soft Tissue Mobilization,Therapeutic Activities Modalities Vasopneumatic Devices Next Visit Focus/Plan Next Note Type Treatment Note Next Visit Plan Continue CDT for lymphedema management.
--- NOTE | 2023-11-24 16:03 | PT.OPPOC ---
Physical, Occupational & Speech Therapy At [facility] Current Diagnoses Lymphedema, not elsewhere classified (11/24/23) Visit Care Team Role Provider Type Geovani Elder DO Family Provider Non-Staff Primary Care Provider Specialty: Medical Address: [address] [place] [address] [address], [place], [address] Email: Nicolás Schrader MD Attending Provider Physician Referring Provider Specialty: Wound Care Address: [address] [place] [address], [address] Email: [email or web address] Plan Of Care PT-OP-T Assessment and Plan Start: 11/24/23 08:48 Freq: Status: Active Protocol: Document 11/24/23 09:30 [facility] (Rec: 11/24/23 09:04 [facility] [id number]) Physical Therapy Assessment Rehab Potential Rehabilitation Potential Fair Evaluation Complexity Number of Personal Factors/Comorbidities 3 or More Number of Body Systems Impaired 4 or More Clinical Presentation at Evaluation Unstable Impairments Impairments Activity Tolerance,Edema,Gait, Soft Tissue Mobility Goals Two Impairment Lymphedema life impact scale score 34% Short Term Goal (STG) Decrease score to no greater than24% as measure of improved activity tolerance and quality of life Print Producer Goal (LTG) Decrease lymphedema life impact scale score to no greater than 15% as measure of improved ability to self manage her lymphedema and improved quality of life LTG Duration 02/24/24 One Impairment lymphedema stella LE's Short Term Goal (STG) Instruct and review all aspects of lymphedema care including skin care, manual lymphatic drainage and use of her lymphedema pump, compression, exercise, and elevation. STG Duration 12/28/23 Longterm Goal (LTG) Patient to be able to self manage all aspects of her lymphedema including donning and doffing appropriate compression garments and use of sequential pneumatic pump LTG Duration 02/22/24 Three Impairment gait impairment Impairment uses FWW and doesn't ambulate significantly other than to come for medical appointments Longterm Goal (LTG) Patient able to ambulate for at least 10 minutes with least restrictive device LTG Duration 02/22/24 Progress Towards Goals Progress Towards Goals Progressing Toward Goals Assessment Summary Assessment Patient presents to PT with function-limiting lymphedema with development of multiple new wounds, being seen in wound care and had wound vac applied to worst wound which is on left lower lateral leg. Also wound right second toe, left medial thigh. She has previously been seen in both wound care and PT for lymphedema management but her ability to self manage is poor given her current treatment for pelvic cancer with chem, homelessness, low activity tolerance, and obesity. She has difficulty with donning and doffing her compression garments and only occasionally is able to use her lymphedema pump due to homelessness. Her chemo impairs her wound healing, contributes to low activity tolerance and ability to self manage. Feel patient 's needs would best be served by being in a care facility at this time but so far despite social work intervention in the past this has not been accomplished. She would benefit from PT for lymphedema management which will include skin care, manual lymphatic drainage, compression, elevation, and exercise. POC was discussed and patient was in agreement. Physical Therapy Plan Frequency and Duration Frequency of Treatment 20 visits Duration of treatment (weeks) 12 Plan of Care Start Date 11/24/23 Plan of Care End Date 02/24/24 Therapeutic Interventions Therapeutic Interventions Gait Training,Home Exercise Program,Lymphedema Management, Manual Therapy,Patient/ Caregiver Education,Self-Care/ Home Management,Soft Tissue Mobilization,Therapeutic Activities Modalities Vasopneumatic Devices Next Visit Focus/Plan Next Note Type Treatment Note Next Visit Plan Continue CDT for lymphedema management. Plan of Care Dates Plan of Care Start Date 11/24/23 Plan of Care End Date 02/24/24 Electronically Signed by: Lizeth Howard, PT 11/24/23 5223 If you are in agreement with this Plan of Care, please return a signed and dated copy. I have reviewed this Plan of Care and certify that the skilled therapy services above are required to meet the patient?s needs. Physician Signature Date Printed Name and Credentials Clinical Instructor Signature Printed Name and Credentials
--- NOTE | 2023-11-28 16:01 | PT.OTN ---
Current Diagnoses Lymphedema, not elsewhere classified (11/28/23) Physical Therapy Treatment Note PT-OP-A Visit Information Start: 11/24/23 08:48 Freq: Status: Active Protocol: Document 11/28/23 14:25 [facility] (Rec: 11/28/23 14:42 [facility] [id number]) Out-Patient Physical Therapy Visit Information Visit Information Visit Type Treatment Note Visit Number 2 Evaluation Information Evaluation Date 11/24/23 Precautions Precautions wound vac right LE PT-OP-B Current Condition Start: 11/24/23 08:48 Freq: Status: Active Protocol: Document 11/28/23 14:25 [facility] (Rec: 11/28/23 14:42 [facility] [id number]) Current Condition History of Current Condition Onset Date 2+ years Current Complaints lymphedema bilateral LE's History of Current Condition Patient has long history of lymphedema francisco LE's, previously seen in this clinic . Discharged from PT after wounds healed, fit for bilateral velcro compression wraps. Patient has now developed multiple new wounds and her lymphedema has worsened. Contributing factors are treatment for pelvic cancer, currently receiving chemotherapy treatments, as well as homelessness and difficulty performing self management program, plus obesity. States she cant bend to put on velcro wraps, has been wearing compression tights: Bioflect. Prior Treatments and Tests prior wound care and lymphedema management Treatment Goals Patient/Caregiver Goals Decrease lymphedema and be able to self manage lymphedema Prior Functional Status Baseline Function- ADL's Modified Independent Baseline Function- Mobility Modified Independent Baseline Function- Gait indep short distances with FWW Baseline Function- Other homeless, occasional stays in hotel where she is able to use her pump PT-OP-C Subjective Start: 11/24/23 08:48 Freq: Status: Active Protocol: Document 11/28/23 14:25 [facility] (Rec: 11/28/23 14:42 [facility] [id number]) OP-PT Subjective Patient Comments Patient Comments Bandaging was good except a little high on the left leg. Very fatigued. PT-OP-F Manual Assessment Start: 11/24/23 08:48 Freq: Status: Active Protocol: Document 11/24/23 09:30 [facility] (Rec: 11/24/23 16:01 [facility] [id number]) Manual Assessments Soft Tissue Assessment Soft Tissue Mobility Assessment hyperkeratosis and fibrosis bilateral lower legs PT-OP-G Mobility & Gait Start: 11/24/23 08:48 Freq: Status: Active Protocol: Document 11/24/23 09:30 [facility] (Rec: 11/24/23 16:01 [facility] [id number]) OP Gait Assessment Gait Gait Assistance Required: Independent Assistive Devices Assistive Device Front Wheeled Walker Gait Deviations General Gait Pattern Antalgic,Decreased Stride Length,Decreased Feet Clearance Factors Limiting Gait Function Factors Limiting Gait Function Decreased Activity Tolerance, Decreased Strength PT-OP-K Range of Motion Start: 11/24/23 08:48 Freq: Status: Active Protocol: Document 11/24/23 09:30 [facility] (Rec: 11/24/23 16:01 [facility] [id number]) Hip Goniometric Range of Motion Hip francisco Hip ROM WFL No Comments mod decrease Hip ROM Limitations Hip ROM Limitations Soft Tissue Tightness,Muscle Weakness Knee Goniometric Range of Motion Knee francsico Knee ROM WFL No Comments flexion limited by tissue approximation Ankle and Foot Goniometric Range of Motion Ankle and Foot francisco Ankle/Foot ROM WFL Yes PT-OP-L Special Tests Start: 11/24/23 08:48 Freq: Status: Active Protocol: Document 11/24/23 09:30 [facility] (Rec: 11/24/23 16:02 [facility] [id number]) Special Tests Other Special Tests Special Tests Stemmer sign positive bilaterally PT-OP-M Strength Start: 11/24/23 08:48 Freq: Status: Active Protocol: Document 11/24/23 09:30 [facility] (Rec: 11/24/23 16:03 [facility] [id number]) Hip Strength Hip Manual Muscle Testing francisco Comments limited to less than 3/5 francisco, impacted by both muscle weakness and weight of legs with lymphedema Knee Strength Knee Manual Muscle Testing francisco Flexion (S2) 3+ Fair+ Extension (L3) 3+ Fair+ Ankle/Foot Strength Ankle and Foot Manual Muscle Testing francisco Dorsiflexion (L4) 4- Good- Plantarflexion (S1) 4- Good- PT-OP-N Lymphedema Start: 11/24/23 08:48 Freq: Status: Active Protocol: Document 11/28/23 14:25 [facility] (Rec: 11/28/23 15:22 [facility] [id number]) Lymphedema Measurements Lower Extremity Circumference Measurements Left Affected MT Heads 24.6 cm Mid-foot 25.2 cm Medial Malleolus 34.3 cm 10 cm From Medial Malleolus 48.5 cm 20 cm From Medial Malleolus 53 cm 30 cm From Medial Malleolus 62 cm 40 cm From Medial Malleolus 70.2 cm 50 cm From Medial Malleolus 73 cm 60 cm From Medial Malleolus 78.5 cm Knee Joint 70 cm right affected MT Heads 25.2 cm Mid-foot 25 cm Medial Malleolus 34.8 cm 10 cm From Medial Malleolus 55.9 cm 20 cm From Medial Malleolus 61.5 cm 30 cm From Medial Malleolus 68.2 cm 40 cm From Medial Malleolus 70 cm 50 cm From Medial Malleolus 71.6 cm 60 cm From Medial Malleolus 75.7 cm Knee Joint 70 cm PT-OP-Q Treatments Start: 11/24/23 08:48 Freq: Status: Active Protocol: Document 11/28/23 14:25 [facility] (Rec: 11/28/23 15:59 [facility] [id number]) Lymphedema Treatment Manual Lymphatic Drainage Location francisco LE's Duration 40 Lymphedema Wrapping Materials Francisco LE's with Coban Lite system toes to knees Sequential Lymphedema Exercises Comments francisco LEs and trunk Patient Education Compression Garments discussed; patient reports has too much difficulty donning compression wrap Self Manual Lymphatic Drainage reviewed Sequential Lymphedema Exercises reviewed Other Patient unable to wear Bioflect compression tights at this time. Other Other circumrerential measurements application of Cetaphil lotion francisco lower legs for skin care PT-OP-T Assessment and Plan Start: 11/24/23 08:48 Freq: Status: Active Protocol: Document 11/28/23 14:25 [facility] (Rec: 11/28/23 14:42 [facility] [id number]) Physical Therapy Assessment Impairments Impairments Activity Tolerance,Edema,Gait, Soft Tissue Mobility Goals Two Impairment Lymphedema life impact scale score 34% Short Term Goal (STG) Decrease score to no greater than24% as measure of improved activity tolerance and quality of life Skilled Nursing Goal (LTG) Decrease lymphedema life impact scale score to no greater than 15% as measure of improved ability to self manage her lymphedema and improved quality of life LTG Duration 02/24/24 One Impairment lymphedema francisco LE's Short Term Goal (STG) Instruct and review all aspects of lymphedema care including skin care, manual lymphatic drainage and use of her lymphedema pump, compression, exercise, and elevation. STG Duration 12/28/23 Skilled Nursing Goal (LTG) Patient to be able to self manage all aspects of her lymphedema including donning and doffing appropriate compression garments and use of sequential pneumatic pump LTG Duration 02/22/24 Three Impairment gait impairment Impairment uses FWW and doesn't ambulate significantly other than to come for medical appointments Salesperson Driver Goal (LTG) Patient able to ambulate for at least 10 minutes with least restrictive device LTG Duration 02/22/24 Assessment Summary Assessment Significant decrease in circumferential measurements noted today. Coban Lite dressing applied to proximally on left leg with notable shearing, adjusted today. Patient very fatigued after wound care and with ongoing chemotherapy. Renewed encouragement to call regarding housing placement, patient agreed. Physical Therapy Plan Frequency and Duration Frequency of Treatment 20 visits Duration of treatment (weeks) 12 Plan of Care Start Date 11/24/23 Plan of Care End Date 02/24/24 Therapeutic Interventions Therapeutic Interventions Gait Training,Home Exercise Program,Lymphedema Management, Manual Therapy,Patient/ Caregiver Education,Self-Care/ Home Management,Soft Tissue Mobilization,Therapeutic Activities Modalities Vasopneumatic Devices Next Visit Focus/Plan Next Note Type Treatment Note Next Visit Plan Continue CDT for lymphedema management.
--- NOTE | 2023-11-28 16:03 | PT.OTN ---
Current Diagnoses Lymphedema, not elsewhere classified (11/28/23) Physical Therapy Treatment Note PT-OP-A Visit Information Start: 11/24/23 08:48 Freq: Status: Active Protocol: Document 11/28/23 14:25 [facility]AK (Rec: 11/28/23 14:42 [facility] [id number]) Out-Patient Physical Therapy Visit Information Visit Information Visit Type Treatment Note Visit Number 2 Evaluation Information Evaluation Date 11/24/23 Precautions Precautions wound vac right LE PT-OP-B Current Condition Start: 11/24/23 08:48 Freq: Status: Active Protocol: Document 11/28/23 14:25 SAK (Rec: 11/28/23 14:42 SAK [id number]) Current Condition History of Current Condition Onset Date 2+ years Current Complaints lymphedema bilateral LE's History of Current Condition Patient has long history of lymphedema francisco LE's, previously seen in this clinic . Discharged from PT after wounds healed, fit for bilateral velcro compression wraps. Patient has now developed multiple new wounds and her lymphedema has worsened. Contributing factors are treatment for pelvic cancer, currently receiving chemotherapy treatments, as well as homelessness and difficulty performing self management program, plus obesity. States she cant bend to put on velcro wraps, has been wearing compression tights: Bioflect. Prior Treatments and Tests prior wound care and lymphedema management Treatment Goals Patient/Caregiver Goals Decrease lymphedema and be able to self manage lymphedema Prior Functional Status Baseline Function- ADL's Modified Independent Baseline Function- Mobility Modified Independent Baseline Function- Gait indep short distances with FWW Baseline Function- Other homeless, occasional stays in hotel where she is able to use her pump PT-OP-C Subjective Start: 11/24/23 08:48 Freq: Status: Active Protocol: Document 11/28/23 14:25 SAK (Rec: 11/28/23 14:42 [facility] [id number]) OP-PT Subjective Patient Comments Patient Comments Bandaging was good except a little high on the left leg. Very fatigued. PT-OP-F Manual Assessment Start: 11/24/23 08:48 Freq: Status: Active Protocol: Document 11/24/23 09:30 SAK (Rec: 11/24/23 16:01 SAK [id number]) Manual Assessments Soft Tissue Assessment Soft Tissue Mobility Assessment hyperkeratosis and fibrosis bilateral lower legs PT-OP-G Mobility & Gait Start: 11/24/23 08:48 Freq: Status: Active Protocol: Document 11/24/23 09:30 [facility] (Rec: 11/24/23 16:01 [facility] [id number]) OP Gait Assessment Gait Gait Assistance Required: Independent Assistive Devices Assistive Device Front Wheeled Walker Gait Deviations General Gait Pattern Antalgic,Decreased Stride Length,Decreased Feet Clearance Factors Limiting Gait Function Factors Limiting Gait Function Decreased Activity Tolerance, Decreased Strength PT-OP-K Range of Motion Start: 11/24/23 08:48 Freq: Status: Active Protocol: Document 11/24/23 09:30 [facility] (Rec: 11/24/23 16:01 [facility] [id number]) Hip Goniometric Range of Motion Hip francisco Hip ROM WFL No Comments mod decrease Hip ROM Limitations Hip ROM Limitations Soft Tissue Tightness,Muscle Weakness Knee Goniometric Range of Motion Knee francisco Knee ROM WFL No Comments flexion limited by tissue approximation Ankle and Foot Goniometric Range of Motion Ankle and Foot francisco Ankle/Foot ROM WFL Yes PT-OP-L Special Tests Start: 11/24/23 08:48 Freq: Status: Active Protocol: Document 11/24/23 09:30 [facility] (Rec: 11/24/23 16:02 [facility] [id number]) Special Tests Other Special Tests Special Tests Stemmer sign positive bilaterally PT-OP-M Strength Start: 11/24/23 08:48 Freq: Status: Active Protocol: Document 11/24/23 09:30 [facility] (Rec: 11/24/23 16:03 [facility] [id number]) Hip Strength Hip Manual Muscle Testing francisco Comments limited to less than 3/5 francisco, impacted by both muscle weakness and weight of legs with lymphedema Knee Strength Knee Manual Muscle Testing francisco Flexion (S2) 3+ Fair+ Extension (L3) 3+ Fair+ Ankle/Foot Strength Ankle and Foot Manual Muscle Testing francisco Dorsiflexion (L4) 4- Good- Plantarflexion (S1) 4- Good- PT-OP-N Lymphedema Start: 11/24/23 08:48 Freq: Status: Active Protocol: Document 11/28/23 14:25 [facility] (Rec: 11/28/23 15:22 [facility] [id number]) Lymphedema Measurements Lower Extremity Circumference Measurements Left Affected MT Heads 24.6 cm Mid-foot 25.2 cm Medial Malleolus 34.3 cm 10 cm From Medial Malleolus 48.5 cm 20 cm From Medial Malleolus 53 cm 30 cm From Medial Malleolus 62 cm 40 cm From Medial Malleolus 70.2 cm 50 cm From Medial Malleolus 73 cm 60 cm From Medial Malleolus 78.5 cm Knee Joint 70 cm right affected MT Heads 25.2 cm Mid-foot 25 cm Medial Malleolus 34.8 cm 10 cm From Medial Malleolus 55.9 cm 20 cm From Medial Malleolus 61.5 cm 30 cm From Medial Malleolus 68.2 cm 40 cm From Medial Malleolus 70 cm 50 cm From Medial Malleolus 71.6 cm 60 cm From Medial Malleolus 75.7 cm Knee Joint 70 cm PT-OP-Q Treatments Start: 11/24/23 08:48 Freq: Status: Active Protocol: Document 11/28/23 14:25 [facility] (Rec: 11/28/23 15:59 [facility] [id number]) Lymphedema Treatment Manual Lymphatic Drainage Location francisco LE's Duration 40 Lymphedema Wrapping Materials Francisco LE's with Coban Lite system toes to knees Sequential Lymphedema Exercises Comments francisco LEs and trunk Patient Education Compression Garments discussed; patient reports has too much difficulty donning compression wrap Self Manual Lymphatic Drainage reviewed Sequential Lymphedema Exercises reviewed Other Patient unable to wear Bioflect compression tights at this time. Other Other circumrerential measurements application of Cetaphil lotion francisco lower legs for skin care PT-OP-T Assessment and Plan Start: 11/24/23 08:48 Freq: Status: Active Protocol: Document 11/28/23 14:25 [facility] (Rec: 11/28/23 14:42 [facility] [id number]) Physical Therapy Assessment Impairments Impairments Activity Tolerance,Edema,Gait, Soft Tissue Mobility Goals Two Impairment Lymphedema life impact scale score 34% Short Term Goal (STG) Decrease score to no greater than24% as measure of improved activity tolerance and quality of life Residential Goal (LTG) Decrease lymphedema life impact scale score to no greater than 15% as measure of improved ability to self manage her lymphedema and improved quality of life LTG Duration 02/24/24 One Impairment lymphedema francisco LE's Short Term Goal (STG) Instruct and review all aspects of lymphedema care including skin care, manual lymphatic drainage and use of her lymphedema pump, compression, exercise, and elevation. STG Duration 12/28/23 Residential Goal (LTG) Patient to be able to self manage all aspects of her lymphedema including donning and doffing appropriate compression garments and use of sequential pneumatic pump LTG Duration 02/22/24 Three Impairment gait impairment Impairment uses FWW and doesn't ambulate significantly other than to come for medical appointments Car Repairer Goal (LTG) Patient able to ambulate for at least 10 minutes with least restrictive device LTG Duration 02/22/24 Assessment Summary Assessment Significant decrease in circumferential measurements noted today. Coban Lite dressing applied to proximally on left leg with notable shearing, adjusted today. Patient very fatigued after wound care and with ongoing chemotherapy. Renewed encouragement to call regarding housing placement, patient agreed. Physical Therapy Plan Frequency and Duration Frequency of Treatment 20 visits Duration of treatment (weeks) 12 Plan of Care Start Date 11/24/23 Plan of Care End Date 02/24/24 Therapeutic Interventions Therapeutic Interventions Gait Training,Home Exercise Program,Lymphedema Management, Manual Therapy,Patient/ Caregiver Education,Self-Care/ Home Management,Soft Tissue Mobilization,Therapeutic Activities Modalities Vasopneumatic Devices Next Visit Focus/Plan Next Note Type Treatment Note Next Visit Plan Continue CDT for lymphedema management.
--- NOTE | 2023-12-01 14:08 | PT.OTN ---
Current Diagnoses Lymphedema, not elsewhere classified (12/01/23) Physical Therapy Treatment Note PT-OP-A Visit Information Start: 11/24/23 08:48 Freq: Status: Active Protocol: Document 12/01/23 13:02 [facility]AK (Rec: 12/01/23 14:07 SAK [id number]) Out-Patient Physical Therapy Visit Information Visit Information Visit Type Treatment Note Visit Start Time 13:00 Visit Stop Time 14:28 Visit Number 3 Evaluation Information Evaluation Date 11/24/23 Precautions Precautions wound vac right LE PT-OP-B Current Condition Start: 11/24/23 08:48 Freq: Status: Active Protocol: Document 12/01/23 13:02 SAK (Rec: 12/01/23 14:07 SAK [id number]) Current Condition History of Current Condition Onset Date 2+ years Current Complaints lymphedema bilateral LE's History of Current Condition Patient has long history of lymphedema francisco LE's, previously seen in this clinic . Discharged from PT after wounds healed, fit for bilateral velcro compression wraps. Patient has now developed multiple new wounds and her lymphedema has worsened. Contributing factors are treatment for pelvic cancer, currently receiving chemotherapy treatments, as well as homelessness and difficulty performing self management program, plus obesity. States she cant bend to put on velcro wraps, has been wearing compression tights: Bioflect. Prior Treatments and Tests prior wound care and lymphedema management Treatment Goals Patient/Caregiver Goals Decrease lymphedema and be able to self manage lymphedema PT-OP-C Subjective Start: 11/24/23 08:48 Freq: Status: Active Protocol: Document 12/01/23 13:02 SAK (Rec: 12/01/23 14:07 SAK [id number]) OP-PT Subjective Patient Comments Patient Comments Submitted application for housing in [place]. Saw wound care this am; wound on mccarthy still requires wound vac, other 2 wounds appear to be healing. Put in Tubigrip temporary from wound care. PT-OP-F Manual Assessment Start: 11/24/23 08:48 Freq: Status: Active Protocol: Document 11/24/23 09:30 SAK (Rec: 11/24/23 16:01 [facility]AK [id number]) Manual Assessments Soft Tissue Assessment Soft Tissue Mobility Assessment hyperkeratosis and fibrosis bilateral lower legs PT-OP-G Mobility & Gait Start: 11/24/23 08:48 Freq: Status: Active Protocol: Document 11/24/23 09:30 [facility] (Rec: 11/24/23 16:01 [facility] [id number]) OP Gait Assessment Gait Gait Assistance Required: Independent Assistive Devices Assistive Device Front Wheeled Walker Gait Deviations General Gait Pattern Antalgic,Decreased Stride Length,Decreased Feet Clearance Factors Limiting Gait Function Factors Limiting Gait Function Decreased Activity Tolerance, Decreased Strength PT-OP-K Range of Motion Start: 11/24/23 08:48 Freq: Status: Active Protocol: Document 11/24/23 09:30 [facility] (Rec: 11/24/23 16:01 [facility] [id number]) Hip Goniometric Range of Motion Hip francisco Hip ROM WFL No Comments mod decrease Hip ROM Limitations Hip ROM Limitations Soft Tissue Tightness,Muscle Weakness Knee Goniometric Range of Motion Knee francisco Knee ROM WFL No Comments flexion limited by tissue approximation Ankle and Foot Goniometric Range of Motion Ankle and Foot francisco Ankle/Foot ROM WFL Yes PT-OP-L Special Tests Start: 11/24/23 08:48 Freq: Status: Active Protocol: Document 11/24/23 09:30 [facility] (Rec: 11/24/23 16:02 [facility] [id number]) Special Tests Other Special Tests Special Tests Stemmer sign positive bilaterally PT-OP-M Strength Start: 11/24/23 08:48 Freq: Status: Active Protocol: Document 11/24/23 09:30 [facility]AK (Rec: 11/24/23 16:03 [facility] [id number]) Hip Strength Hip Manual Muscle Testing francisco Comments limited to less than 3/5 francisco, impacted by both muscle weakness and weight of legs with lymphedema Knee Strength Knee Manual Muscle Testing francisco Flexion (S2) 3+ Fair+ Extension (L3) 3+ Fair+ Ankle/Foot Strength Ankle and Foot Manual Muscle Testing francisco Dorsiflexion (L4) 4- Good- Plantarflexion (S1) 4- Good- PT-OP-N Lymphedema Start: 11/24/23 08:48 Freq: Status: Active Protocol: Document 11/28/23 14:25 [facility]AK (Rec: 11/28/23 15:22 [facility] [id number]) Lymphedema Measurements Lower Extremity Circumference Measurements Left Affected MT Heads 24.6 cm Mid-foot 25.2 cm Medial Malleolus 34.3 cm 10 cm From Medial Malleolus 48.5 cm 20 cm From Medial Malleolus 53 cm 30 cm From Medial Malleolus 62 cm 40 cm From Medial Malleolus 70.2 cm 50 cm From Medial Malleolus 73 cm 60 cm From Medial Malleolus 78.5 cm Knee Joint 70 cm right affected MT Heads 25.2 cm Mid-foot 25 cm Medial Malleolus 34.8 cm 10 cm From Medial Malleolus 55.9 cm 20 cm From Medial Malleolus 61.5 cm 30 cm From Medial Malleolus 68.2 cm 40 cm From Medial Malleolus 70 cm 50 cm From Medial Malleolus 71.6 cm 60 cm From Medial Malleolus 75.7 cm Knee Joint 70 cm PT-OP-Q Treatments Start: 11/24/23 08:48 Freq: Status: Active Protocol: Document 12/01/23 13:02 [facility] (Rec: 12/01/23 14:07 [facility] [id number]) Lymphedema Treatment Manual Lymphatic Drainage Location francisco LE's Duration 40 Lymphedema Wrapping Materials Francisco LE's with Coban Lite system toes to knees Sequential Lymphedema Exercises Comments francisco LEs and trunk, UE's to facilitate lymphatic flow Compression Garment Assessment Compression Garment Assessment Details unable to wear at this time due to wound vac Patient Education Sequential Lymphedema Exercises increase as juanita Other Patient unable to wear Bioflect compression tights at this time due to wound vac PT-OP-T Assessment and Plan Start: 11/24/23 08:48 Freq: Status: Active Protocol: Document 12/01/23 13:02 [facility] (Rec: 12/01/23 14:07 [facility] [id number]) Physical Therapy Assessment Impairments Impairments Activity Tolerance,Edema,Gait, Soft Tissue Mobility Goals Two Impairment Lymphedema life impact scale score 34% Short Term Goal (STG) Decrease score to no greater than24% as measure of improved activity tolerance and quality of life STG Duration 12/28/23 Longterm Goal (LTG) Decrease lymphedema life impact scale score to no greater than 15% as measure of improved ability to self manage her lymphedema and improved quality of life LTG Duration 02/24/24 One Impairment lymphedema francisco LE's Short Term Goal (STG) Instruct and review all aspects of lymphedema care including skin care, manual lymphatic drainage and use of her lymphedema pump, compression, exercise, and elevation. STG Duration 12/28/23 Longterm Goal (LTG) Patient to be able to self manage all aspects of her lymphedema including donning and doffing appropriate compression garments and use of sequential pneumatic pump LTG Duration 02/22/24 Three Impairment gait impairment Impairment uses FWW and doesn't ambulate significantly other than to come for medical appointments Longterm Goal (LTG) Patient able to ambulate for at least 10 minutes with least restrictive device LTG Duration 02/22/24 Assessment Summary Assessment no circumferential measurements taken; will take again next session. Consult with wound care; use of sequential lymphatic pump and compression tights contraindicated at this time. Physical Therapy Plan Frequency and Duration Frequency of Treatment 20 visits Duration of treatment (weeks) 12 Plan of Care Start Date 11/24/23 Plan of Care End Date 02/24/24 Therapeutic Interventions Therapeutic Interventions Gait Training,Home Exercise Program,Lymphedema Management, Manual Therapy,Patient/ Caregiver Education,Self-Care/ Home Management,Soft Tissue Mobilization,Therapeutic Activities Modalities Vasopneumatic Devices Next Visit Focus/Plan Next Note Type Treatment Note Next Visit Plan Continue CDT for lymphedema management.
--- NOTE | 2023-12-05 09:37 | PT.OTN ---
Current Diagnoses Lymphedema, not elsewhere classified (12/05/23) Physical Therapy Treatment Note PT-OP-A Visit Information Start: 11/24/23 08:48 Freq: Status: Active Protocol: Document 12/05/23 09:04 [facility]AK (Rec: 12/05/23 09:36 [facility]AK [id number]) Out-Patient Physical Therapy Visit Information Visit Information Visit Type Treatment Note Visit Start Time 09:00 Visit Stop Time 10:25 Visit Number 3 Evaluation Information Evaluation Date 11/24/23 Precautions Precautions wound vac right LE PT-OP-B Current Condition Start: 11/24/23 08:48 Freq: Status: Active Protocol: Document 12/05/23 09:04 [facility]AK (Rec: 12/05/23 09:36 [facility]AK [id number]) Current Condition History of Current Condition Onset Date 2+ years Current Complaints lymphedema bilateral LE's History of Current Condition Patient has long history of lymphedema francisco LE's, previously seen in this clinic . Discharged from PT after wounds healed, fit for bilateral velcro compression wraps. Patient has now developed multiple new wounds and her lymphedema has worsened. Contributing factors are treatment for pelvic cancer, currently receiving chemotherapy treatments, as well as homelessness and difficulty performing self management program, plus obesity. States she cant bend to put on velcro wraps, has been wearing compression tights: Bioflect. Prior Treatments and Tests prior wound care and lymphedema management Treatment Goals Patient/Caregiver Goals Decrease lymphedema and be able to self manage lymphedema PT-OP-C Subjective Start: 11/24/23 08:48 Freq: Status: Active Protocol: Document 12/05/23 09:04 [facility] (Rec: 12/05/23 09:36 [facility]AK [id number]) OP-PT Subjective Patient Comments Patient Comments Toe and thigh wound much improved, wound on mccarthy with wound vac not much changed, continue wound vac. PT-OP-F Manual Assessment Start: 11/24/23 08:48 Freq: Status: Active Protocol: Document 11/24/23 09:30 [facility] (Rec: 11/24/23 16:01 SAK [id number]) Manual Assessments Soft Tissue Assessment Soft Tissue Mobility Assessment hyperkeratosis and fibrosis bilateral lower legs PT-OP-G Mobility & Gait Start: 11/24/23 08:48 Freq: Status: Active Protocol: Document 11/24/23 09:30 [facility]AK (Rec: 11/24/23 16:01 [facility] [id number]) OP Gait Assessment Gait Gait Assistance Required: Independent Assistive Devices Assistive Device Front Wheeled Walker Gait Deviations General Gait Pattern Antalgic,Decreased Stride Length,Decreased Feet Clearance Factors Limiting Gait Function Factors Limiting Gait Function Decreased Activity Tolerance, Decreased Strength PT-OP-K Range of Motion Start: 11/24/23 08:48 Freq: Status: Active Protocol: Document 11/24/23 09:30 [facility] (Rec: 11/24/23 16:01 [facility] [id number]) Hip Goniometric Range of Motion Hip francisco Hip ROM WFL No Comments mod decrease Hip ROM Limitations Hip ROM Limitations Soft Tissue Tightness,Muscle Weakness Knee Goniometric Range of Motion Knee francisco Knee ROM WFL No Comments flexion limited by tissue approximation Ankle and Foot Goniometric Range of Motion Ankle and Foot francisco Ankle/Foot ROM WFL Yes PT-OP-L Special Tests Start: 11/24/23 08:48 Freq: Status: Active Protocol: Document 11/24/23 09:30 [facility] (Rec: 11/24/23 16:02 [facility] [id number]) Special Tests Other Special Tests Special Tests Stemmer sign positive bilaterally PT-OP-M Strength Start: 11/24/23 08:48 Freq: Status: Active Protocol: Document 11/24/23 09:30 [facility] (Rec: 11/24/23 16:03 [facility] [id number]) Hip Strength Hip Manual Muscle Testing francisco Comments limited to less than 3/5 francisco, impacted by both muscle weakness and weight of legs with lymphedema Knee Strength Knee Manual Muscle Testing francisco Flexion (S2) 3+ Fair+ Extension (L3) 3+ Fair+ Ankle/Foot Strength Ankle and Foot Manual Muscle Testing francisco Dorsiflexion (L4) 4- Good- Plantarflexion (S1) 4- Good- PT-OP-N Lymphedema Start: 11/24/23 08:48 Freq: Status: Active Protocol: Document 12/05/23 09:04 [facility] (Rec: 12/05/23 09:36 [facility] [id number]) Lymphedema Measurements Lower Extremity Circumference Measurements Left Affected MT Heads 24.5 cm Mid-foot 25.2 cm Medial Malleolus 33 cm 10 cm From Medial Malleolus 49.4 cm 20 cm From Medial Malleolus 52 cm 30 cm From Medial Malleolus 63.8 cm 40 cm From Medial Malleolus 72.2 cm 50 cm From Medial Malleolus 72.7 cm Knee Joint 72.2 cm right affected MT Heads 25.6 cm Mid-foot 24.7 cm Medial Malleolus 32.8 cm 10 cm From Medial Malleolus 53.2 cm 20 cm From Medial Malleolus 60.3 cm 30 cm From Medial Malleolus 74.2 cm 40 cm From Medial Malleolus 74.8 cm 50 cm From Medial Malleolus 75.5 cm 60 cm From Medial Malleolus 73.3 cm Knee Joint 74.8 cm PT-OP-Q Treatments Start: 11/24/23 08:48 Freq: Status: Active Protocol: Document 12/05/23 09:04 [facility] (Rec: 12/05/23 09:37 [facility] [id number]) Lymphedema Treatment Manual Lymphatic Drainage Location francisco LE's Duration 40 Lymphedema Wrapping Materials Francisco LE's with Coban Lite system toes to knees Sequential Lymphedema Exercises Comments francisco LEs and trunk, UE's to facilitate lymphatic flow Compression Garment Assessment Compression Garment Assessment Details unable to wear at this time due to wound vac, to put compression knee wraps on after laundering. Other Other circumrerential measurements application of Cetaphil lotion francisco lower legs for skin care PT-OP-T Assessment and Plan Start: 11/24/23 08:48 Freq: Status: Active Protocol: Document 12/05/23 09:04 [facility] (Rec: 12/05/23 09:36 [facility] [id number]) Physical Therapy Assessment Impairments Impairments Activity Tolerance,Edema,Gait, Soft Tissue Mobility Goals Two Impairment Lymphedema life impact scale score 34% Short Term Goal (STG) Decrease score to no greater than24% as measure of improved activity tolerance and quality of life STG Duration 12/28/23 Mcc Goal (LTG) Decrease lymphedema life impact scale score to no greater than 15% as measure of improved ability to self manage her lymphedema and improved quality of life LTG Duration 02/24/24 One Impairment lymphedema francisco LE's Short Term Goal (STG) Instruct and review all aspects of lymphedema care including skin care, manual lymphatic drainage and use of her lymphedema pump, compression, exercise, and elevation. STG Duration 12/28/23 Mcc Goal (LTG) Patient to be able to self manage all aspects of her lymphedema including donning and doffing appropriate compression garments and use of sequential pneumatic pump LTG Duration 02/22/24 Three Impairment gait impairment Impairment uses FWW and doesn't ambulate significantly other than to come for medical appointments Medical Secretary Goal (LTG) Patient able to ambulate for at least 10 minutes with least restrictive device LTG Duration 02/22/24 Assessment Summary Assessment decrease in distal lower leg circumferencial measurements, but inc in knee and lower thigh due to not currently able to wear Bioflect Compression tights, and is laundering compression wraps for knees. Patient able to move sit to supine without assist for first time due to inc strength. Physical Therapy Plan Frequency and Duration Frequency of Treatment 20 visits Duration of treatment (weeks) 12 Plan of Care Start Date 11/24/23 Plan of Care End Date 02/24/24 Therapeutic Interventions Therapeutic Interventions Gait Training,Home Exercise Program,Lymphedema Management, Manual Therapy,Patient/ Caregiver Education,Self-Care/ Home Management,Soft Tissue Mobilization,Therapeutic Activities Modalities Vasopneumatic Devices Next Visit Focus/Plan Next Note Type Treatment Note Next Visit Plan Continue CDT for lymphedema management.
--- NOTE | 2023-12-08 10:30 | PT.OTN ---
Current Diagnoses Lymphedema, not elsewhere classified (12/08/23) Physical Therapy Treatment Note PT-OP-A Visit Information Start: 11/24/23 08:48 Freq: Status: Active Protocol: Document 12/08/23 09:01 SAK (Rec: 12/08/23 10:30 SAK [id number]) Out-Patient Physical Therapy Visit Information Visit Information Visit Type Treatment Note Visit Start Time 09:01 Visit Stop Time 10:25 Visit Number 4 Evaluation Information Evaluation Date 11/24/23 Precautions Precautions wound vac right LE PT-OP-B Current Condition Start: 11/24/23 08:48 Freq: Status: Active Protocol: Document 12/08/23 09:01 SAK (Rec: 12/08/23 10:30 SAK [id number]) Current Condition History of Current Condition Onset Date 2+ years Current Complaints lymphedema bilateral LE's History of Current Condition Patient has long history of lymphedema francisco LE's, previously seen in this clinic . Discharged from PT after wounds healed, fit for bilateral velcro compression wraps. Patient has now developed multiple new wounds and her lymphedema has worsened. Contributing factors are treatment for pelvic cancer, currently receiving chemotherapy treatments, as well as homelessness and difficulty performing self management program, plus obesity. States she cant bend to put on velcro wraps, has been wearing compression tights: Bioflect. Prior Treatments and Tests prior wound care and lymphedema management Treatment Goals Patient/Caregiver Goals Decrease lymphedema and be able to self manage lymphedema PT-OP-C Subjective Start: 11/24/23 08:48 Freq: Status: Active Protocol: Document 12/08/23 09:01 SAK (Rec: 12/08/23 10:30 SAK [id number]) OP-PT Subjective Patient Comments Patient Comments Has wound care at 1:00 today. PT-OP-F Manual Assessment Start: 11/24/23 08:48 Freq: Status: Active Protocol: Document 11/24/23 09:30 SAK (Rec: 11/24/23 16:01 SAK [id number]) Manual Assessments Soft Tissue Assessment Soft Tissue Mobility Assessment hyperkeratosis and fibrosis bilateral lower legs PT-OP-G Mobility & Gait Start: 11/24/23 08:48 Freq: Status: Active Protocol: Document 11/24/23 09:30 SAK (Rec: 11/24/23 16:01 SAK [id number]) OP Gait Assessment Gait Gait Assistance Required: Independent Assistive Devices Assistive Device Front Wheeled Walker Gait Deviations General Gait Pattern Antalgic,Decreased Stride Length,Decreased Feet Clearance Factors Limiting Gait Function Factors Limiting Gait Function Decreased Activity Tolerance, Decreased Strength PT-OP-K Range of Motion Start: 11/24/23 08:48 Freq: Status: Active Protocol: Document 11/24/23 09:30 SAK (Rec: 11/24/23 16:01 SAK [id number]) Hip Goniometric Range of Motion Hip francisco Hip ROM WFL No Comments mod decrease Hip ROM Limitations Hip ROM Limitations Soft Tissue Tightness,Muscle Weakness Knee Goniometric Range of Motion Knee francisco Knee ROM WFL No Comments flexion limited by tissue approximation Ankle and Foot Goniometric Range of Motion Ankle and Foot francisco Ankle/Foot ROM WFL Yes PT-OP-L Special Tests Start: 11/24/23 08:48 Freq: Status: Active Protocol: Document 11/24/23 09:30 SAK (Rec: 11/24/23 16:02 SAK [id number]) Special Tests Other Special Tests Special Tests Stemmer sign positive bilaterally PT-OP-M Strength Start: 11/24/23 08:48 Freq: Status: Active Protocol: Document 11/24/23 09:30 SAK (Rec: 11/24/23 16:03 SAK [id number]) Hip Strength Hip Manual Muscle Testing francisco Comments limited to less than 3/5 francisco, impacted by both muscle weakness and weight of legs with lymphedema Knee Strength Knee Manual Muscle Testing francisco Flexion (S2) 3+ Fair+ Extension (L3) 3+ Fair+ Ankle/Foot Strength Ankle and Foot Manual Muscle Testing francisco Dorsiflexion (L4) 4- Good- Plantarflexion (S1) 4- Good- PT-OP-N Lymphedema Start: 11/24/23 08:48 Freq: Status: Active Protocol: Document 12/05/23 09:04 SAK (Rec: 12/05/23 09:36 SAK [id number]) Lymphedema Measurements Lower Extremity Circumference Measurements Left Affected MT Heads 24.5 cm Mid-foot 25.2 cm Medial Malleolus 33 cm 10 cm From Medial Malleolus 49.4 cm 20 cm From Medial Malleolus 52 cm 30 cm From Medial Malleolus 63.8 cm 40 cm From Medial Malleolus 72.2 cm 50 cm From Medial Malleolus 72.7 cm Knee Joint 72.2 cm right affected MT Heads 25.6 cm Mid-foot 24.7 cm Medial Malleolus 32.8 cm 10 cm From Medial Malleolus 53.2 cm 20 cm From Medial Malleolus 60.3 cm 30 cm From Medial Malleolus 74.2 cm 40 cm From Medial Malleolus 74.8 cm 50 cm From Medial Malleolus 75.5 cm 60 cm From Medial Malleolus 73.3 cm Knee Joint 74.8 cm PT-OP-Q Treatments Start: 11/24/23 08:48 Freq: Status: Active Protocol: Document 12/08/23 09:01 [facility] (Rec: 12/08/23 10:30 [facility] [id number]) Therapeutic Activity Therapeutic Activity transfer sit to supine Comments mod assist for right LE onto and offtreatment table, donning/doffing pants Reps/Minutes 6 Comments mod assist Lymphedema Treatment Manual Lymphatic Drainage Location francisco LE's Duration 40 Lymphedema Wrapping Materials Francisco LE's with Coban Lite system toes to knees Other Instruction to put on knee wraps as soon as dry from laundry. PT to submit information to [facility] to request 2nd pair of compression garments; lower leg velcro wrap compression and Juzo Sensation shorts for proximal compression. Not able to wear Bioflect at this time due to wound vac Sequential Lymphedema Exercises Comments francisco LEs and trunk, UE's to facilitate lymphatic flow Compression Garment Assessment Compression Garment Assessment Details unable to wear at this time due to wound vac, to put compression knee wraps on after laundering. Patient Education Other Patient unable to wear Bioflect compression tights at this time due to wound vac Other Other application of Cetaphil lotion after MLD instructed to obtain 4WW to allow her to more easily take her pump into hotel when she stays so she can use sequential pneumatic pump when able. Patient to call [employer] today regarding housing help. PT-OP-R Modalities Start: 11/24/23 08:48 Freq: Status: Active Protocol: Document 12/08/23 09:01 [facility] (Rec: 12/08/23 10:30 [facility] [id number]) Compression Pump Treatment Treatment Location right LE Pressure Amount (mmHg) (mmHG) 45 Inflation Time (Seconds) 10 Deflation Time (Seconds) 5 Treatment Tolerance Good Treatment Comments during MLD proximal and left LE: PT-OP-T Assessment and Plan Start: 11/24/23 08:48 Freq: Status: Active Protocol: Document 12/08/23 09:01 KATIA (Rec: 12/08/23 10:30 KATIA [id number]) Physical Therapy Assessment Impairments Impairments Activity Tolerance,Edema,Gait, Soft Tissue Mobility Goals Two Impairment Lymphedema life impact scale score 34% Short Term Goal (STG) Decrease score to no greater than24% as measure of improved activity tolerance and quality of life STG Duration 12/28/23 Halfway Goal (LTG) Decrease lymphedema life impact scale score to no greater than 15% as measure of improved ability to self manage her lymphedema and improved quality of life LTG Duration 02/24/24 One Impairment lymphedema francisco LE's Short Term Goal (STG) Instruct and review all aspects of lymphedema care including skin care, manual lymphatic drainage and use of her lymphedema pump, compression, exercise, and elevation. STG Duration 12/28/23 Halfway Goal (LTG) Patient to be able to self manage all aspects of her lymphedema including donning and doffing appropriate compression garments and use of sequential pneumatic pump LTG Duration 02/22/24 Three Impairment gait impairment Impairment uses FWW and doesn't ambulate significantly other than to come for medical appointments Halfway Goal (LTG) Patient able to ambulate for at least 10 minutes with least restrictive device LTG Duration 02/22/24 Assessment Summary Assessment Patient more fatigued today after chemo, required increased physical assistance on and off treatment table and for donning and doffing pants . Some improvement left LE wound per wound care physician . Not wearing compression wraps on knees due to still drying from laundry; discussed need for 2 sets, given information regardin [facility], PT to submit patient information for hopefully increased ease of obtaining compression garments and hopeful insurance coverage. Physical Therapy Plan Frequency and Duration Frequency of Treatment 20 visits Duration of treatment (weeks) 12 Plan of Care Start Date 11/24/23 Plan of Care End Date 02/24/24 Therapeutic Interventions Therapeutic Interventions Gait Training,Home Exercise Program,Lymphedema Management, Manual Therapy,Patient/ Caregiver Education,Self-Care/ Home Management,Soft Tissue Mobilization,Therapeutic Activities Modalities Vasopneumatic Devices Next Visit Focus/Plan Next Note Type Treatment Note Next Visit Plan Continue CDT for lymphedema management. ASsist with obtaining second set of compression garments.
--- NOTE | 2023-12-12 14:02 | PT.OTN ---
Current Diagnoses Lymphedema, not elsewhere classified (12/12/23) Physical Therapy Treatment Note PT-OP-A Visit Information Start: 11/24/23 08:48 Freq: Status: Active Protocol: Document 12/12/23 09:08 SAK (Rec: 12/12/23 09:16 SAK [id number]) Out-Patient Physical Therapy Visit Information Visit Information Visit Type Treatment Note Visit Start Time 09:04 Visit Stop Time 10:28 Visit Number 5 Evaluation Information Evaluation Date 11/24/23 Precautions Precautions wound vac right LE PT-OP-B Current Condition Start: 11/24/23 08:48 Freq: Status: Active Protocol: Document 12/12/23 09:08 SAK (Rec: 12/12/23 09:16 SAK [id number]) Current Condition History of Current Condition Onset Date 2+ years Current Complaints lymphedema bilateral LE's History of Current Condition Patient has long history of lymphedema francisco LE's, previously seen in this clinic . Discharged from PT after wounds healed, fit for bilateral velcro compression wraps. Patient has now developed multiple new wounds and her lymphedema has worsened. Contributing factors are treatment for pelvic cancer, currently receiving chemotherapy treatments, as well as homelessness and difficulty performing self management program, plus obesity. States she cant bend to put on velcro wraps, has been wearing compression tights: Bioflect. Prior Treatments and Tests prior wound care and lymphedema management Treatment Goals Patient/Caregiver Goals Decrease lymphedema and be able to self manage lymphedema PT-OP-C Subjective Start: 11/24/23 08:48 Freq: Status: Active Protocol: Document 12/12/23 09:08 SAK (Rec: 12/12/23 14:02 SAK [id number]) OP-PT Subjective Patient Comments Patient Comments wound careafter PT today, fatigued from chemotherapy regimine. Didn't call [employer] yet. PT-OP-F Manual Assessment Start: 11/24/23 08:48 Freq: Status: Active Protocol: Document 11/24/23 09:30 SAK (Rec: 11/24/23 16:01 SAK [id number]) Manual Assessments Soft Tissue Assessment Soft Tissue Mobility Assessment hyperkeratosis and fibrosis bilateral lower legs PT-OP-G Mobility & Gait Start: 11/24/23 08:48 Freq: Status: Active Protocol: Document 11/24/23 09:30 SAK (Rec: 11/24/23 16:01 [facility] [id number]) OP Gait Assessment Gait Gait Assistance Required: Independent Assistive Devices Assistive Device Front Wheeled Walker Gait Deviations General Gait Pattern Antalgic,Decreased Stride Length,Decreased Feet Clearance Factors Limiting Gait Function Factors Limiting Gait Function Decreased Activity Tolerance, Decreased Strength PT-OP-K Range of Motion Start: 11/24/23 08:48 Freq: Status: Active Protocol: Document 11/24/23 09:30 [facility] (Rec: 11/24/23 16:01 [facility] [id number]) Hip Goniometric Range of Motion Hip francisco Hip ROM WFL No Comments mod decrease Hip ROM Limitations Hip ROM Limitations Soft Tissue Tightness,Muscle Weakness Knee Goniometric Range of Motion Knee francisco Knee ROM WFL No Comments flexion limited by tissue approximation Ankle and Foot Goniometric Range of Motion Ankle and Foot francisco Ankle/Foot ROM WFL Yes PT-OP-L Special Tests Start: 11/24/23 08:48 Freq: Status: Active Protocol: Document 11/24/23 09:30 [facility] (Rec: 11/24/23 16:02 [facility] [id number]) Special Tests Other Special Tests Special Tests Stemmer sign positive bilaterally PT-OP-M Strength Start: 11/24/23 08:48 Freq: Status: Active Protocol: Document 11/24/23 09:30 [facility] (Rec: 11/24/23 16:03 [facility] [id number]) Hip Strength Hip Manual Muscle Testing francisco Comments limited to less than 3/5 francisco, impacted by both muscle weakness and weight of legs with lymphedema Knee Strength Knee Manual Muscle Testing francisco Flexion (S2) 3+ Fair+ Extension (L3) 3+ Fair+ Ankle/Foot Strength Ankle and Foot Manual Muscle Testing francisco Dorsiflexion (L4) 4- Good- Plantarflexion (S1) 4- Good- PT-OP-N Lymphedema Start: 11/24/23 08:48 Freq: Status: Active Protocol: Document 12/12/23 09:05 [facility] (Rec: 12/12/23 09:34 [facility] [id number]) Lymphedema Measurements Lower Extremity Circumference Measurements Left Affected MT Heads 26.4 cm Mid-foot 26.2 cm Medial Malleolus 33.4 cm 10 cm From Medial Malleolus 47.2 cm 20 cm From Medial Malleolus 54.8 cm 30 cm From Medial Malleolus 67.5 cm 40 cm From Medial Malleolus 75.7 cm 50 cm From Medial Malleolus 75.4 cm 60 cm From Medial Malleolus 77.8 cm Knee Joint 72.1 cm right affected MT Heads 25.5 cm Mid-foot 25.3 cm Medial Malleolus 32.8 cm 10 cm From Medial Malleolus 52.8 cm 20 cm From Medial Malleolus 63.1 cm 30 cm From Medial Malleolus 75.3 cm 40 cm From Medial Malleolus 76.7 cm 50 cm From Medial Malleolus 74 cm 60 cm From Medial Malleolus 75.8 cm Knee Joint 76.7 cm PT-OP-Q Treatments Start: 11/24/23 08:48 Freq: Status: Active Protocol: Document 12/12/23 09:08 [facility] (Rec: 12/12/23 14:02 [facility] [id number]) Therapeutic Activity Therapeutic Activity transfer sit to supine Comments min assist for right LE onto and off treatment table, donning/doffing pants Reps/Minutes 6 Comments min assist Lymphedema Treatment Manual Lymphatic Drainage Location francisco LE's Duration 40 Lymphedema Wrapping Materials Francisco LE's with Coban Lite system toes to knees Other Instruction to put on knee wraps as soon as dry from laundry. PT to submit information to [facility] to request 2nd pair of compression garments; lower leg velcro wrap compression and Juzo Sensation shorts for proximal compression. Not able to wear Bioflect at this time due to wound vac Other Other application of Cetaphil lotion after MLD instructed to obtain 4WW to allow her to more easily take her pump into hotel when she stays so she can use sequential pneumatic pump when able. Patient to call [employer] today regarding housing help. PT-OP-R Modalities Start: 11/24/23 08:48 Freq: Status: Active Protocol: Document 12/12/23 09:08 [facility] (Rec: 12/12/23 14:02 [facility] [id number]) Compression Pump Treatment Treatment Location right LE Pressure Amount (mmHg) (mmHG) 45 Inflation Time (Seconds) 10 Deflation Time (Seconds) 5 Treatment Tolerance Good Treatment Comments during MLD proximal and left LE: PT-OP-T Assessment and Plan Start: 11/24/23 08:48 Freq: Status: Active Protocol: Document 12/12/23 09:08 [facility] (Rec: 12/12/23 09:16 [facility] [id number]) Physical Therapy Assessment Impairments Impairments Activity Tolerance,Edema,Gait, Soft Tissue Mobility Goals Two Impairment Lymphedema life impact scale score 34% Short Term Goal (STG) Decrease score to no greater than24% as measure of improved activity tolerance and quality of life STG Duration 12/28/23 Longterm Goal (LTG) Decrease lymphedema life impact scale score to no greater than 15% as measure of improved ability to self manage her lymphedema and improved quality of life LTG Duration 02/24/24 One Impairment lymphedema francisco LE's Short Term Goal (STG) Instruct and review all aspects of lymphedema care including skin care, manual lymphatic drainage and use of her lymphedema pump, compression, exercise, and elevation. STG Duration 12/28/23 Community [facility] Director Goal (LTG) Patient to be able to self manage all aspects of her lymphedema including donning and doffing appropriate compression garments and use of sequential pneumatic pump LTG Duration 02/22/24 Three Impairment gait impairment Impairment uses FWW and doesn't ambulate significantly other than to come for medical appointments Longterm Goal (LTG) Patient able to ambulate for at least 10 minutes with least restrictive device LTG Duration 02/22/24 Assessment Summary Assessment Measurements variable, mostly smaller lower legs and larger proximal. Sees wound care after PT today, not sure how much longer has to wear wound vac. Physical Therapy Plan Frequency and Duration Frequency of Treatment 20 visits Duration of treatment (weeks) 12 Plan of Care Start Date 11/24/23 Plan of Care End Date 02/24/24 Therapeutic Interventions Therapeutic Interventions Gait Training,Home Exercise Program,Lymphedema Management, Manual Therapy,Patient/ Caregiver Education,Self-Care/ Home Management,Soft Tissue Mobilization,Therapeutic Activities Modalities Vasopneumatic Devices Next Visit Focus/Plan Next Note Type Treatment Note Next Visit Plan Continue CDT. Enter patient info with [employer] to obtain future compression garments.
--- NOTE | 2023-12-15 10:39 | PT.OTN ---
Current Diagnoses Lymphedema, not elsewhere classified (12/15/23) Physical Therapy Treatment Note PT-OP-A Visit Information Start: 11/24/23 08:48 Freq: Status: Active Protocol: Document 12/15/23 09:06 SAK (Rec: 12/15/23 09:41 [facility] [id number]) Out-Patient Physical Therapy Visit Information Visit Information Visit Type Treatment Note Visit Note pt 10 min late Visit Start Time 09:10 Visit Stop Time 10:28 Visit Number 6 Precautions Precautions wound vac right LE PT-OP-B Current Condition Start: 11/24/23 08:48 Freq: Status: Active Protocol: Document 12/15/23 09:06 SAK (Rec: 12/15/23 10:36 [facility] [id number]) Current Condition History of Current Condition Onset Date 2+ years Current Complaints lymphedema bilateral LE's History of Current Condition Patient has long history of lymphedema francisco LE's, previously seen in this clinic . Discharged from PT after wounds healed, fit for bilateral velcro compression wraps. Patient has now developed multiple new wounds and her lymphedema has worsened. Contributing factors are treatment for pelvic cancer, currently receiving chemotherapy treatments, as well as homelessness and difficulty performing self management program, plus obesity. States she cant bend to put on velcro wraps, has been wearing compression tights: Bioflect. Prior Treatments and Tests prior wound care and lymphedema management Treatment Goals Patient/Caregiver Goals Decrease lymphedema and be able to self manage lymphedema PT-OP-C Subjective Start: 11/24/23 08:48 Freq: Status: Active Protocol: Document 12/15/23 09:06 SAK (Rec: 12/15/23 10:36 [facility] [id number]) OP-PT Subjective Patient Comments Patient Comments Reports called and left message with [employer] regarding housing. Will call again if doesn't hear back. No new c/o. Still has wound vac on left LE so unable to wear Bioflect compression tights. PT-OP-F Manual Assessment Start: 11/24/23 08:48 Freq: Status: Active Protocol: Document 11/24/23 09:30 SAK (Rec: 11/24/23 16:01 SAK [id number]) Manual Assessments Soft Tissue Assessment Soft Tissue Mobility Assessment hyperkeratosis and fibrosis bilateral lower legs PT-OP-G Mobility & Gait Start: 11/24/23 08:48 Freq: Status: Active Protocol: Document 11/24/23 09:30 [facility] (Rec: 11/24/23 16:01 [facility] [id number]) OP Gait Assessment Gait Gait Assistance Required: Independent Assistive Devices Assistive Device Front Wheeled Walker Gait Deviations General Gait Pattern Antalgic,Decreased Stride Length,Decreased Feet Clearance Factors Limiting Gait Function Factors Limiting Gait Function Decreased Activity Tolerance, Decreased Strength PT-OP-K Range of Motion Start: 11/24/23 08:48 Freq: Status: Active Protocol: Document 11/24/23 09:30 [facility] (Rec: 11/24/23 16:01 [facility] [id number]) Hip Goniometric Range of Motion Hip francisco Hip ROM WFL No Comments mod decrease Hip ROM Limitations Hip ROM Limitations Soft Tissue Tightness,Muscle Weakness Knee Goniometric Range of Motion Knee francisco Knee ROM WFL No Comments flexion limited by tissue approximation Ankle and Foot Goniometric Range of Motion Ankle and Foot francisco Ankle/Foot ROM WFL Yes PT-OP-L Special Tests Start: 11/24/23 08:48 Freq: Status: Active Protocol: Document 11/24/23 09:30 [facility] (Rec: 11/24/23 16:02 [facility] [id number]) Special Tests Other Special Tests Special Tests Stemmer sign positive bilaterally PT-OP-M Strength Start: 11/24/23 08:48 Freq: Status: Active Protocol: Document 11/24/23 09:30 SAK (Rec: 11/24/23 16:03 [facility] [id number]) Hip Strength Hip Manual Muscle Testing francisco Comments limited to less than 3/5 francisco, impacted by both muscle weakness and weight of legs with lymphedema Knee Strength Knee Manual Muscle Testing francisco Flexion (S2) 3+ Fair+ Extension (L3) 3+ Fair+ Ankle/Foot Strength Ankle and Foot Manual Muscle Testing francisco Dorsiflexion (L4) 4- Good- Plantarflexion (S1) 4- Good- PT-OP-N Lymphedema Start: 11/24/23 08:48 Freq: Status: Active Protocol: Document 12/15/23 09:06 SAK (Rec: 12/15/23 09:41 [facility] [id number]) Lymphedema Measurements Lower Extremity Circumference Measurements right affected MT Heads 26.2 cm Mid-foot 26 cm Medial Malleolus 33.7 cm 10 cm From Medial Malleolus 52.2 cm 20 cm From Medial Malleolus 63.5 cm 30 cm From Medial Malleolus 78.1 cm 40 cm From Medial Malleolus 77.4 cm 50 cm From Medial Malleolus 77.3 cm 60 cm From Medial Malleolus 75 cm Knee Joint 76.7 cm PT-OP-Q Treatments Start: 11/24/23 08:48 Freq: Status: Active Protocol: Document 12/15/23 09:06 [facility] (Rec: 12/15/23 09:41 [facility] [id number]) Therapeutic Activity Therapeutic Activity transfer sit to supine Comments min assist for right LE onto and off treatment table, donning/doffing pants Reps/Minutes 6 Comments min assist Lymphedema Treatment Manual Lymphatic Drainage Location francisco LE's Duration 40 Lymphedema Wrapping Materials Francisco LE's with Coban Lite system toes to knees Other Instruction to put on knee wraps as soon as dry from laundry. PT to submit information to [facility] to request 2nd pair of compression garments; lower leg velcro wrap compression and Juzo Sensation shorts for proximal compression. Not able to wear Bioflect at this time due to wound vac Sequential Lymphedema Exercises Comments francisco LEs and trunk, UE's to facilitate lymphatic flow Compression Garment Assessment Compression Garment Assessment Details unable to wear at this time due to wound vac, previously instructed to use compression wraps at knees but hasn't yet Other Other application of Cetaphil lotion after MLD instructed to obtain 4WW to allow her to more easily take her pump into hotel when she stays so she can use sequential pneumatic pump when able. Patient to call [facility] today regarding housing help. PT-OP-R Modalities Start: 11/24/23 08:48 Freq: Status: Active Protocol: Document 12/15/23 09:06 [facility] (Rec: 12/15/23 10:36 [facility] [id number]) Compression Pump Treatment Treatment Location right LE Pressure Amount (mmHg) (mmHG) 45 Inflation Time (Seconds) 10 Deflation Time (Seconds) 5 Treatment Tolerance Good Treatment Comments during MLD proximal and left LE: PT-OP-T Assessment and Plan Start: 11/24/23 08:48 Freq: Status: Active Protocol: Document 12/15/23 09:06 [facility] (Rec: 12/15/23 09:41 [facility] [id number]) Physical Therapy Assessment Impairments Impairments Activity Tolerance,Edema,Gait, Soft Tissue Mobility Goals Two Impairment Lymphedema life impact scale score 34% Short Term Goal (STG) Decrease score to no greater than24% as measure of improved activity tolerance and quality of life STG Duration 12/28/23 Group Home Goal (LTG) Decrease lymphedema life impact scale score to no greater than 15% as measure of improved ability to self manage her lymphedema and improved quality of life LTG Duration 02/24/24 One Impairment lymphedema frnacisco LE's Short Term Goal (STG) Instruct and review all aspects of lymphedema care including skin care, manual lymphatic drainage and use of her lymphedema pump, compression, exercise, and elevation. STG Duration 12/28/23 Architectural Project Manager Goal (LTG) Patient to be able to self manage all aspects of her lymphedema including donning and doffing appropriate compression garments and use of sequential pneumatic pump LTG Duration 02/22/24 Three Impairment gait impairment Impairment uses FWW and doesn't ambulate significantly other than to come for medical appointments Group Home Goal (LTG) Patient able to ambulate for at least 10 minutes with least restrictive device LTG Duration 02/22/24 Assessment Summary Assessment Circumferential measurements continue to be variable. Physical Therapy Plan Frequency and Duration Frequency of Treatment 20 visits Duration of treatment (weeks) 12 Plan of Care Start Date 11/24/23 Plan of Care End Date 02/24/24 Therapeutic Interventions Therapeutic Interventions Gait Training,Home Exercise Program,Lymphedema Management, Manual Therapy,Patient/ Caregiver Education,Self-Care/ Home Management,Soft Tissue Mobilization,Therapeutic Activities Modalities Vasopneumatic Devices Next Visit Focus/Plan Next Note Type Treatment Note Next Visit Plan Continue CDT. Enter patient info with [employer] to obtain future compression garments. review doning compression wraps for knees for best effect.
--- NOTE | 2023-12-22 12:14 | PT.OTN ---
Current Diagnoses Lymphedema, not elsewhere classified (12/22/23) Physical Therapy Treatment Note PT-OP-A Visit Information Start: 11/24/23 08:48 Freq: Status: Active Protocol: Document 12/22/23 10:31 SAK (Rec: 12/22/23 11:41 [facility] [id number]) Out-Patient Physical Therapy Visit Information Visit Information Visit Type Treatment Note Visit Start Time 10:35 Visit Stop Time 12:02 Visit Number 7 Evaluation Information Evaluation Date 11/24/23 Precautions Precautions wound vac right LE PT-OP-B Current Condition Start: 11/24/23 08:48 Freq: Status: Active Protocol: Document 12/22/23 10:31 SAK (Rec: 12/22/23 11:41 SAK [id number]) Current Condition History of Current Condition Onset Date 2+ years Current Complaints lymphedema bilateral LE's History of Current Condition Patient has long history of lymphedema francisco LE's, previously seen in this clinic . Discharged from PT after wounds healed, fit for bilateral velcro compression wraps. Patient has now developed multiple new wounds and her lymphedema has worsened. Contributing factors are treatment for pelvic cancer, currently receiving chemotherapy treatments, as well as homelessness and difficulty performing self management program, plus obesity. States she cant bend to put on velcro wraps, has been wearing compression tights: Bioflect. Prior Treatments and Tests prior wound care and lymphedema management Treatment Goals Patient/Caregiver Goals Decrease lymphedema and be able to self manage lymphedema PT-OP-C Subjective Start: 11/24/23 08:48 Freq: Status: Active Protocol: Document 12/22/23 10:31 SAK (Rec: 12/22/23 11:41 [facility] [id number]) OP-PT Subjective Patient Comments Patient Comments Saw new oncologist Dr. Quintero, took her off Avastin due to side effect of vaginal bleeding. Saw cs associate yesterday Dr. Mckeon. Going on cardiac monitoring x 2 weeks. \Saw wound care on Tuesday, continues with wound vac, reports it seems to be helping with wound care reporting some gradulation tisssue. PT-OP-F Manual Assessment Start: 11/24/23 08:48 Freq: Status: Active Protocol: Document 11/24/23 09:30 SAK (Rec: 11/24/23 16:01 SAK [id number]) Manual Assessments Soft Tissue Assessment Soft Tissue Mobility Assessment hyperkeratosis and fibrosis bilateral lower legs PT-OP-G Mobility & Gait Start: 11/24/23 08:48 Freq: Status: Active Protocol: Document 11/24/23 09:30 SAK (Rec: 11/24/23 16:01 [facility] [id number]) OP Gait Assessment Gait Gait Assistance Required: Independent Assistive Devices Assistive Device Front Wheeled Walker Gait Deviations General Gait Pattern Antalgic,Decreased Stride Length,Decreased Feet Clearance Factors Limiting Gait Function Factors Limiting Gait Function Decreased Activity Tolerance, Decreased Strength PT-OP-K Range of Motion Start: 11/24/23 08:48 Freq: Status: Active Protocol: Document 11/24/23 09:30 SAK (Rec: 11/24/23 16:01 SAK [id number]) Hip Goniometric Range of Motion Hip francisco Hip ROM WFL No Comments mod decrease Hip ROM Limitations Hip ROM Limitations Soft Tissue Tightness,Muscle Weakness Knee Goniometric Range of Motion Knee francisco Knee ROM WFL No Comments flexion limited by tissue approximation Ankle and Foot Goniometric Range of Motion Ankle and Foot francisco Ankle/Foot ROM WFL Yes PT-OP-L Special Tests Start: 11/24/23 08:48 Freq: Status: Active Protocol: Document 11/24/23 09:30 SAK (Rec: 11/24/23 16:02 SAK [id number]) Special Tests Other Special Tests Special Tests Stemmer sign positive bilaterally PT-OP-M Strength Start: 11/24/23 08:48 Freq: Status: Active Protocol: Document 11/24/23 09:30 SAK (Rec: 11/24/23 16:03 SAK [id number]) Hip Strength Hip Manual Muscle Testing francisco Comments limited to less than 3/5 francisco, impacted by both muscle weakness and weight of legs with lymphedema Knee Strength Knee Manual Muscle Testing francisco Flexion (S2) 3+ Fair+ Extension (L3) 3+ Fair+ Ankle/Foot Strength Ankle and Foot Manual Muscle Testing francisco Dorsiflexion (L4) 4- Good- Plantarflexion (S1) 4- Good- PT-OP-N Lymphedema Start: 11/24/23 08:48 Freq: Status: Active Protocol: Document 12/22/23 10:31 SAK (Rec: 12/22/23 11:41 SAK [id number]) Lymphedema Measurements Lower Extremity Circumference Measurements Left Affected MT Heads 25.7 cm Mid-foot 25.7 cm Medial Malleolus 38.3 cm 10 cm From Medial Malleolus 57 cm 20 cm From Medial Malleolus 63.3 cm 30 cm From Medial Malleolus 72.4 cm 40 cm From Medial Malleolus 74.4 cm 50 cm From Medial Malleolus 74.8 cm 60 cm From Medial Malleolus 76.5 cm Knee Joint 74.4 cm PT-OP-Q Treatments Start: 11/24/23 08:48 Freq: Status: Active Protocol: Document 12/22/23 10:31 [facility] (Rec: 12/22/23 11:41 [facility] [id number]) Therapeutic Activity Therapeutic Activity transfer sit to supine Comments min assist for right LE onto and off treatment table, donning/doffing pants Reps/Minutes 6 Comments min assist Lymphedema Treatment Manual Lymphatic Drainage Location francisco LE's Duration 40 Lymphedema Wrapping Materials Francisco LE's with Coban Lite system toes to knees Other Reminded to use velcro knee wraps. PT to submit information to [facility] to request 2nd pair of compression garments; lower leg velcro wrap compression and Juzo Sensation shorts for proximal compression. Not able to wear Bioflect at this time due to wound vac Sequential Lymphedema Exercises Comments francisco LEs and trunk, UE's to facilitate lymphatic flow Compression Garment Assessment Compression Garment Assessment Details unable to wear at this time due to wound vac, previously instructed to use compression wraps at knees but hasn't yet; reminded again and talked with wound care regarding encouraging this as well. Other Other application of Cetaphil lotion after MLD instructed to obtain 4WW to allow her to more easily take her pump into hotel when she stays so she can use sequential pneumatic pump when able. Patient to call [employer] today regarding housing help. PT-OP-R Modalities Start: 11/24/23 08:48 Freq: Status: Active Protocol: Document 12/22/23 10:31 [facility] (Rec: 12/22/23 11:41 [facility] [id number]) Compression Pump Treatment Treatment Location right LE Pressure Amount (mmHg) (mmHG) 45 Inflation Time (Seconds) 10 Deflation Time (Seconds) 5 Treatment Tolerance Good Treatment Comments during MLD proximal and left LE: PT-OP-T Assessment and Plan Start: 11/24/23 08:48 Freq: Status: Active Protocol: Document 12/22/23 10:31 [facility] (Rec: 12/22/23 11:41 [facility] [id number]) Physical Therapy Assessment Impairments Impairments Activity Tolerance,Edema,Gait, Soft Tissue Mobility Goals Two Impairment Lymphedema life impact scale score 34% Short Term Goal (STG) Decrease score to no greater than24% as measure of improved activity tolerance and quality of life STG Duration 12/28/23 Aluminum Fabrication Supervisor Goal (LTG) Decrease lymphedema life impact scale score to no greater than 15% as measure of improved ability to self manage her lymphedema and improved quality of life LTG Duration 02/24/24 One Impairment lymphedema francisco LE's Short Term Goal (STG) Instruct and review all aspects of lymphedema care including skin care, manual lymphatic drainage and use of her lymphedema pump, compression, exercise, and elevation. STG Duration 12/28/23 Long-Term Goal (LTG) Patient to be able to self manage all aspects of her lymphedema including donning and doffing appropriate compression garments and use of sequential pneumatic pump LTG Duration 02/22/24 Three Impairment gait impairment Impairment uses FWW and doesn't ambulate significantly other than to come for medical appointments Long-Term Goal (LTG) Patient able to ambulate for at least 10 minutes with least restrictive device LTG Duration 02/22/24 Assessment Summary Assessment Patient not compliant to wearing compression wraps on knees. Emphasis on importance for both lymphedema reduction and wound healing. Continues to be difficult to manage due to immune compromise, living in car, min ability to use lymphedema pump, low compliance to wearing compression wraps, and only having 1 set of compression garments. Physical Therapy Plan Frequency and Duration Frequency of Treatment 20 visits Duration of treatment (weeks) 12 Plan of Care Start Date 11/24/23 Plan of Care End Date 02/24/24 Therapeutic Interventions Therapeutic Interventions Gait Training,Home Exercise Program,Lymphedema Management, Manual Therapy,Patient/ Caregiver Education,Self-Care/ Home Management,Soft Tissue Mobilization,Therapeutic Activities Modalities Vasopneumatic Devices Next Visit Focus/Plan Next Note Type Treatment Note Next Visit Plan Continue CDT. Again encouraged patient to wear compression wraps on knees.
--- NOTE | 2024-01-05 12:06 | PT.OTN ---
Current Diagnoses Lymphedema, not elsewhere classified (01/05/24) Physical Therapy Treatment Note PT-OP-A Visit Information Start: 11/24/23 08:48 Freq: Status: Active Protocol: Document 01/05/24 10:31 SAK (Rec: 01/05/24 11:16 SAK [id number]) Out-Patient Physical Therapy Visit Information Visit Information Visit Type Treatment Note Visit Start Time 10:31 Visit Stop Time 12:00 Visit Number 8 Evaluation Information Evaluation Date 11/24/23 Precautions Precautions wound vac right LE PT-OP-B Current Condition Start: 11/24/23 08:48 Freq: Status: Active Protocol: Document 01/05/24 10:31 SAK (Rec: 01/05/24 11:16 SAK [id number]) Current Condition History of Current Condition Onset Date 2+ years Current Complaints lymphedema bilateral LE's History of Current Condition Patient has long history of lymphedema francisco LE's, previously seen in this clinic . Discharged from PT after wounds healed, fit for bilateral velcro compression wraps. Patient has now developed multiple new wounds and her lymphedema has worsened. Contributing factors are treatment for pelvic cancer, currently receiving chemotherapy treatments, as well as homelessness and difficulty performing self management program, plus obesity. States she cant bend to put on velcro wraps, has been wearing compression tights: Bioflect. Prior Treatments and Tests prior wound care and lymphedema management Treatment Goals Patient/Caregiver Goals Decrease lymphedema and be able to self manage lymphedema PT-OP-C Subjective Start: 11/24/23 08:48 Freq: Status: Active Protocol: Document 01/05/24 10:31 SAK (Rec: 01/05/24 11:16 SAK [id number]) OP-PT Subjective Patient Comments Patient Comments JUst saw wound care, not using wound vac anymore due to irritation of surrounding tissue, not infected, some granulation but not closing likely due to chemo.l Got new walker; 4WW. Got approval to use pump; has used 2x. Hasn't yet used Bioflect. Has signed up with [employer] to try to get housing. PT-OP-F Manual Assessment Start: 11/24/23 08:48 Freq: Status: Active Protocol: Document 11/24/23 09:30 SAK (Rec: 11/24/23 16:01 SAK [id number]) Manual Assessments Soft Tissue Assessment Soft Tissue Mobility Assessment hyperkeratosis and fibrosis bilateral lower legs PT-OP-G Mobility & Gait Start: 11/24/23 08:48 Freq: Status: Active Protocol: Document 11/24/23 09:30 [facility] (Rec: 11/24/23 16:01 [facility] [id number]) OP Gait Assessment Gait Gait Assistance Required: Independent Assistive Devices Assistive Device Front Wheeled Walker Gait Deviations General Gait Pattern Antalgic,Decreased Stride Length,Decreased Feet Clearance Factors Limiting Gait Function Factors Limiting Gait Function Decreased Activity Tolerance, Decreased Strength PT-OP-K Range of Motion Start: 11/24/23 08:48 Freq: Status: Active Protocol: Document 11/24/23 09:30 SAK (Rec: 11/24/23 16:01 [facility] [id number]) Hip Goniometric Range of Motion Hip francisco Hip ROM WFL No Comments mod decrease Hip ROM Limitations Hip ROM Limitations Soft Tissue Tightness,Muscle Weakness Knee Goniometric Range of Motion Knee francisco Knee ROM WFL No Comments flexion limited by tissue approximation Ankle and Foot Goniometric Range of Motion Ankle and Foot francisco Ankle/Foot ROM WFL Yes PT-OP-L Special Tests Start: 11/24/23 08:48 Freq: Status: Active Protocol: Document 11/24/23 09:30 [facility] (Rec: 11/24/23 16:02 [facility] [id number]) Special Tests Other Special Tests Special Tests Stemmer sign positive bilaterally PT-OP-M Strength Start: 11/24/23 08:48 Freq: Status: Active Protocol: Document 11/24/23 09:30 [facility] (Rec: 11/24/23 16:03 [facility] [id number]) Hip Strength Hip Manual Muscle Testing francisco Comments limited to less than 3/5 francisco, impacted by both muscle weakness and weight of legs with lymphedema Knee Strength Knee Manual Muscle Testing francisco Flexion (S2) 3+ Fair+ Extension (L3) 3+ Fair+ Ankle/Foot Strength Ankle and Foot Manual Muscle Testing francisco Dorsiflexion (L4) 4- Good- Plantarflexion (S1) 4- Good- PT-OP-N Lymphedema Start: 11/24/23 08:48 Freq: Status: Active Protocol: Document 01/05/24 10:31 SAK (Rec: 01/05/24 11:16 SAK [id number]) Lymphedema Measurements Lower Extremity Circumference Measurements Left Affected MT Heads 25 cm Mid-foot 26.1 cm Medial Malleolus 37.5 cm 10 cm From Medial Malleolus 52 cm 20 cm From Medial Malleolus 62.4 cm 30 cm From Medial Malleolus 70 cm 40 cm From Medial Malleolus 75.8 cm 50 cm From Medial Malleolus 76.8 cm 60 cm From Medial Malleolus 79 cm Knee Joint 70.6 cm right affected MT Heads 25.7 cm Mid-foot 34 cm Medial Malleolus 34.3 cm 10 cm From Medial Malleolus 57 cm 20 cm From Medial Malleolus 63.5 cm 30 cm From Medial Malleolus 70.2 cm 40 cm From Medial Malleolus 76 cm 50 cm From Medial Malleolus 76 cm 60 cm From Medial Malleolus 77.9 cm Knee Joint 75.3 cm PT-OP-Q Treatments Start: 11/24/23 08:48 Freq: Status: Active Protocol: Document 01/05/24 10:31 [facility] (Rec: 01/05/24 12:05 [facility] [id number]) Lymphedema Treatment Manual Lymphatic Drainage Location francisco LE's Duration 40 Lymphedema Wrapping Materials Francisco LE's with Coban Lite system toes to knees Sequential Lymphedema Exercises Comments francisco LEs and trunk, UE's to facilitate lymphatic flow Compression Garment Assessment Compression Garment Assessment Details Patient instructed to resume wearing Bioflect tights Other Other application of Cetaphil lotion after MLD Patient has obtained 4WW; walker fit to patient with PT lowering both handles and legs for proper fit PT-OP-R Modalities Start: 11/24/23 08:48 Freq: Status: Active Protocol: Document 01/05/24 10:31 [facility] (Rec: 01/05/24 12:06 [facility] [id number]) Compression Pump Treatment Treatment Location francisco LEs Pressure Amount (mmHg) (mmHG) 45 Inflation Time (Seconds) 30 Deflation Time (Seconds) 5 Treatment Tolerance Good Treatment Comments during MLD opp LE PT-OP-T Assessment and Plan Start: 11/24/23 08:48 Freq: Status: Active Protocol: Document 01/05/24 10:31 [facility] (Rec: 01/05/24 11:16 [facility] [id number]) Physical Therapy Assessment Impairments Impairments Activity Tolerance,Edema,Gait, Soft Tissue Mobility Goals Two Impairment Lymphedema life impact scale score 34% Short Term Goal (STG) Decrease score to no greater than24% as measure of improved activity tolerance and quality of life STG Duration 12/28/23 Prison Goal (LTG) Decrease lymphedema life impact scale score to no greater than 15% as measure of improved ability to self manage her lymphedema and improved quality of life LTG Duration 02/24/24 One Impairment lymphedema francisco LE's Short Term Goal (STG) Instruct and review all aspects of lymphedema care including skin care, manual lymphatic drainage and use of her lymphedema pump, compression, exercise, and elevation. STG Duration 12/28/23 Prison Goal (LTG) Patient to be able to self manage all aspects of her lymphedema including donning and doffing appropriate compression garments and use of sequential pneumatic pump LTG Duration 02/22/24 Three Impairment gait impairment Impairment uses FWW and doesn't ambulate significantly other than to come for medical appointments Analysis Reporting Developer Goal (LTG) Patient able to ambulate for at least 10 minutes with least restrictive device LTG Duration 02/22/24 Progress Towards Goals Progress Towards Goals Slow Progress due to Medical Issues Assessment Summary Assessment Circumferntial measurements variable but many improved, has used pump 2x in past week. No more wound vac so can now get back to using Bioflect compression stockings. Improved affect, more positive . Feels too fatigued for Sci- Fit today but will continue LE exercises. Physical Therapy Plan Frequency and Duration Frequency of Treatment 20 visits Duration of treatment (weeks) 12 Plan of Care Start Date 11/24/23 Plan of Care End Date 02/24/24 Therapeutic Interventions Therapeutic Interventions Gait Training,Home Exercise Program,Lymphedema Management, Manual Therapy,Patient/ Caregiver Education,Self-Care/ Home Management,Soft Tissue Mobilization,Therapeutic Activities Modalities Vasopneumatic Devices Next Visit Focus/Plan Next Note Type Treatment Note Next Visit Plan Continue CDT.
--- NOTE | 2024-01-12 12:07 | PT.OTN ---
Current Diagnoses Lymphedema, not elsewhere classified (01/12/24) Physical Therapy Treatment Note PT-OP-A Visit Information Start: 11/24/23 08:48 Freq: Status: Active Protocol: Document 01/12/24 10:35 SAK (Rec: 01/12/24 11:00 SAK [id number]) Out-Patient Physical Therapy Visit Information Visit Information Visit Type Treatment Note Visit Start Time 10:31 Visit Stop Time 12:00 Visit Number 9 Evaluation Information Evaluation Date 11/24/23 Precautions Precautions no wound vac PT-OP-B Current Condition Start: 11/24/23 08:48 Freq: Status: Active Protocol: Document 01/12/24 10:35 SAK (Rec: 01/12/24 11:00 SAK [id number]) Current Condition History of Current Condition Onset Date 2+ years Current Complaints lymphedema bilateral LE's History of Current Condition Patient has long history of lymphedema francisco LE's, previously seen in this clinic . Discharged from PT after wounds healed, fit for bilateral velcro compression wraps. Patient has now developed multiple new wounds and her lymphedema has worsened. Contributing factors are treatment for pelvic cancer, currently receiving chemotherapy treatments, as well as homelessness and difficulty performing self management program, plus obesity. States she cant bend to put on velcro wraps, has been wearing compression tights: Bioflect. Prior Treatments and Tests prior wound care and lymphedema management PT-OP-C Subjective Start: 11/24/23 08:48 Freq: Status: Active Protocol: Document 01/12/24 10:35 SAK (Rec: 01/12/24 11:00 SAK [id number]) OP-PT Subjective Patient Comments Patient Comments Just saw wound care. Coban was sliding causing blisters around wound PT-OP-F Manual Assessment Start: 11/24/23 08:48 Freq: Status: Active Protocol: Document 11/24/23 09:30 SAK (Rec: 11/24/23 16:01 SAK [id number]) Manual Assessments Soft Tissue Assessment Soft Tissue Mobility Assessment hyperkeratosis and fibrosis bilateral lower legs PT-OP-G Mobility & Gait Start: 11/24/23 08:48 Freq: Status: Active Protocol: Document 11/24/23 09:30 SAK (Rec: 11/24/23 16:01 SAK [id number]) OP Gait Assessment Gait Gait Assistance Required: Independent Assistive Devices Assistive Device Front Wheeled Walker Gait Deviations General Gait Pattern Antalgic,Decreased Stride Length,Decreased Feet Clearance Factors Limiting Gait Function Factors Limiting Gait Function Decreased Activity Tolerance, Decreased Strength PT-OP-K Range of Motion Start: 11/24/23 08:48 Freq: Status: Active Protocol: Document 11/24/23 09:30 SAK (Rec: 11/24/23 16:01 [facility] [id number]) Hip Goniometric Range of Motion Hip francisco Hip ROM WFL No Comments mod decrease Hip ROM Limitations Hip ROM Limitations Soft Tissue Tightness,Muscle Weakness Knee Goniometric Range of Motion Knee francisco Knee ROM WFL No Comments flexion limited by tissue approximation Ankle and Foot Goniometric Range of Motion Ankle and Foot francisco Ankle/Foot ROM WFL Yes PT-OP-L Special Tests Start: 11/24/23 08:48 Freq: Status: Active Protocol: Document 11/24/23 09:30 SAK (Rec: 11/24/23 16:02 [facility] [id number]) Special Tests Other Special Tests Special Tests Stemmer sign positive bilaterally PT-OP-M Strength Start: 11/24/23 08:48 Freq: Status: Active Protocol: Document 11/24/23 09:30 SAK (Rec: 11/24/23 16:03 SAK [id number]) Hip Strength Hip Manual Muscle Testing francisco Comments limited to less than 3/5 francisco, impacted by both muscle weakness and weight of legs with lymphedema Knee Strength Knee Manual Muscle Testing francisco Flexion (S2) 3+ Fair+ Extension (L3) 3+ Fair+ Ankle/Foot Strength Ankle and Foot Manual Muscle Testing francisco Dorsiflexion (L4) 4- Good- Plantarflexion (S1) 4- Good- PT-OP-N Lymphedema Start: 11/24/23 08:48 Freq: Status: Active Protocol: Document 01/12/24 10:35 SAK (Rec: 01/12/24 11:00 [facility] [id number]) Lymphedema Measurements Lower Extremity Circumference Measurements Left Affected MT Heads 24 cm Mid-foot 25.8 cm Medial Malleolus 38.3 cm 10 cm From Medial Malleolus 51 cm 20 cm From Medial Malleolus 59.9 cm 30 cm From Medial Malleolus 73.4 cm 40 cm From Medial Malleolus 74.5 cm 50 cm From Medial Malleolus 80 cm 60 cm From Medial Malleolus 75.4 cm Knee Joint 74.5 cm right affected MT Heads 25.6 cm Mid-foot 25 cm Medial Malleolus 37.2 cm 10 cm From Medial Malleolus 58 cm 20 cm From Medial Malleolus 65.7 cm 30 cm From Medial Malleolus 75.4 cm 40 cm From Medial Malleolus 77 cm 50 cm From Medial Malleolus 83.3 cm 60 cm From Medial Malleolus 85 cm Knee Joint 75.3 cm PT-OP-Q Treatments Start: 11/24/23 08:48 Freq: Status: Active Protocol: Document 01/12/24 10:35 [facility] (Rec: 01/12/24 12:04 [facility] [id number]) Lymphedema Treatment Manual Lymphatic Drainage Location francisco LE's Duration 40 Lymphedema Wrapping Materials Francisco LE's with Coban Lite system toes to knees. Mod assist to patient to don Bioflect compression tights over Coban Lite. Other patient instructed to put velcro knee wraps on tomorrow (today first day to get Bioflect back on as she forgot PT instructed her to wear at previous session) Sequential Lymphedema Exercises Comments francisco LEs and trunk, UE's to facilitate lymphatic flow Compression Garment Assessment Compression Garment Assessment Details Patient instructed to add velcro compression tights tomorrow. Other Other application of Cetaphil lotion after MLD PT-OP-R Modalities Start: 11/24/23 08:48 Freq: Status: Active Protocol: Document 01/12/24 10:35 [facility] (Rec: 01/12/24 11:00 [facility] [id number]) Compression Pump Treatment Treatment Location francisco LEs Pressure Amount (mmHg) (mmHG) 45 Inflation Time (Seconds) 30 Deflation Time (Seconds) 5 Treatment Tolerance Good Treatment Comments during MLD opp LE PT-OP-T Assessment and Plan Start: 11/24/23 08:48 Freq: Status: Active Protocol: Document 01/12/24 10:35 [facility] (Rec: 01/12/24 11:00 [facility] [id number]) Physical Therapy Assessment Impairments Impairments Activity Tolerance,Edema,Gait, Soft Tissue Mobility Goals Two Impairment Lymphedema life impact scale score 34% Short Term Goal (STG) Decrease score to no greater than24% as measure of improved activity tolerance and quality of life STG Duration 12/28/23 Platform Operations Director Goal (LTG) Decrease lymphedema life impact scale score to no greater than 15% as measure of improved ability to self manage her lymphedema and improved quality of life LTG Duration 02/24/24 One Impairment lymphedema francisco LE's Short Term Goal (STG) Instruct and review all aspects of lymphedema care including skin care, manual lymphatic drainage and use of her lymphedema pump, compression, exercise, and elevation. STG Duration 12/28/23 Platform Operations Director Goal (LTG) Patient to be able to self manage all aspects of her lymphedema including donning and doffing appropriate compression garments and use of sequential pneumatic pump LTG Duration 02/22/24 Three Impairment gait impairment Impairment uses FWW and doesn't ambulate significantly other than to come for medical appointments Platform Operations Director Goal (LTG) Patient able to ambulate for at least 10 minutes with least restrictive device LTG Duration 02/22/24 Progress Towards Goals Progress Towards Goals Slow Progress due to Medical Issues Assessment Summary Assessment Circumferential measurements mostly increased right greater than left. Has not worn Bioflect yet due to forgetting . Saw wound care prior to PT and reports she had some blistering and wound care requested padding of anterior left leg in divot area to minimize further issues. Patient chemo, memory, poor mobility, and homelessness all contribiting to difficulty making progress. Hopeful Bioflect stockings will be helpful for patient lymphatic flow and decreased thigh fibrosis and pain from Lipedema. Physical Therapy Plan Frequency and Duration Frequency of Treatment 20 visits Duration of treatment (weeks) 12 Plan of Care Start Date 11/24/23 Plan of Care End Date 02/24/24 Therapeutic Interventions Therapeutic Interventions Gait Training,Home Exercise Program,Lymphedema Management, Manual Therapy,Patient/ Caregiver Education,Self-Care/ Home Management,Soft Tissue Mobilization,Therapeutic Activities Modalities Vasopneumatic Devices Next Visit Focus/Plan Next Note Type Treatment Note Next Visit Plan Continue CDT. Increase compression garment use as above as patient tolerates. Return to Sci-Fit exercise as able.
--- NOTE | 2024-01-19 11:50 | PT.OTN ---
Current Diagnoses Lymphedema, not elsewhere classified (01/19/24) Physical Therapy Treatment Note PT-OP-A Visit Information Start: 11/24/23 08:48 Freq: Status: Active Protocol: Document 01/19/24 10:38 SAK (Rec: 01/19/24 11:18 SAK [id number]) Out-Patient Physical Therapy Visit Information Visit Information Visit Type Treatment Note Visit Start Time 10:31 Visit Stop Time 11:40 Visit Number 10 Evaluation Information Evaluation Date 11/24/23 Precautions Precautions no wound vac PT-OP-B Current Condition Start: 11/24/23 08:48 Freq: Status: Active Protocol: Document 01/19/24 10:38 SAK (Rec: 01/19/24 11:18 SAK [id number]) Current Condition History of Current Condition Onset Date 2+ years Current Complaints lymphedema bilateral LE's History of Current Condition Patient has long history of lymphedema francisco LE's, previously seen in this clinic . Discharged from PT after wounds healed, fit for bilateral velcro compression wraps. Patient has now developed multiple new wounds and her lymphedema has worsened. Contributing factors are treatment for pelvic cancer, currently receiving chemotherapy treatments, as well as homelessness and difficulty performing self management program, plus obesity. States she cant bend to put on velcro wraps, has been wearing compression tights: Bioflect. Prior Treatments and Tests prior wound care and lymphedema management PT-OP-C Subjective Start: 11/24/23 08:48 Freq: Status: Active Protocol: Document 01/12/24 10:35 SAK (Rec: 01/12/24 11:00 SAK [id number]) OP-PT Subjective Patient Comments Patient Comments Just saw wound care. Coban was sliding causing blisters around wound PT-OP-F Manual Assessment Start: 11/24/23 08:48 Freq: Status: Active Protocol: Document 11/24/23 09:30 SAK (Rec: 11/24/23 16:01 SAK [id number]) Manual Assessments Soft Tissue Assessment Soft Tissue Mobility Assessment hyperkeratosis and fibrosis bilateral lower legs PT-OP-G Mobility & Gait Start: 11/24/23 08:48 Freq: Status: Active Protocol: Document 11/24/23 09:30 SAK (Rec: 11/24/23 16:01 SAK [id number]) OP Gait Assessment Gait Gait Assistance Required: Independent Assistive Devices Assistive Device Front Wheeled Walker Gait Deviations General Gait Pattern Antalgic,Decreased Stride Length,Decreased Feet Clearance Factors Limiting Gait Function Factors Limiting Gait Function Decreased Activity Tolerance, Decreased Strength PT-OP-K Range of Motion Start: 11/24/23 08:48 Freq: Status: Active Protocol: Document 11/24/23 09:30 SAK (Rec: 11/24/23 16:01 [facility] [id number]) Hip Goniometric Range of Motion Hip francisco Hip ROM WFL No Comments mod decrease Hip ROM Limitations Hip ROM Limitations Soft Tissue Tightness,Muscle Weakness Knee Goniometric Range of Motion Knee francisco Knee ROM WFL No Comments flexion limited by tissue approximation Ankle and Foot Goniometric Range of Motion Ankle and Foot francisco Ankle/Foot ROM WFL Yes PT-OP-L Special Tests Start: 11/24/23 08:48 Freq: Status: Active Protocol: Document 11/24/23 09:30 SAK (Rec: 11/24/23 16:02 [facility] [id number]) Special Tests Other Special Tests Special Tests Stemmer sign positive bilaterally PT-OP-M Strength Start: 11/24/23 08:48 Freq: Status: Active Protocol: Document 11/24/23 09:30 SAK (Rec: 11/24/23 16:03 [facility] [id number]) Hip Strength Hip Manual Muscle Testing francisco Comments limited to less than 3/5 francisco, impacted by both muscle weakness and weight of legs with lymphedema Knee Strength Knee Manual Muscle Testing francisco Flexion (S2) 3+ Fair+ Extension (L3) 3+ Fair+ Ankle/Foot Strength Ankle and Foot Manual Muscle Testing francisco Dorsiflexion (L4) 4- Good- Plantarflexion (S1) 4- Good- PT-OP-N Lymphedema Start: 11/24/23 08:48 Freq: Status: Active Protocol: Document 01/19/24 10:38 SAK (Rec: 01/19/24 11:18 SAK [id number]) Lymphedema Measurements Lower Extremity Circumference Measurements Left Affected MT Heads 24.5 cm Mid-foot 25.2 cm Medial Malleolus 37.4 cm 10 cm From Medial Malleolus 53.1 cm 20 cm From Medial Malleolus 60.9 cm 30 cm From Medial Malleolus 69 cm 40 cm From Medial Malleolus 71.7 cm 50 cm From Medial Malleolus 73.4 cm 60 cm From Medial Malleolus 76.3 cm Knee Joint 71.4 cm right affected MT Heads 25.7 cm Mid-foot 24.5 cm Medial Malleolus 35.8 cm 10 cm From Medial Malleolus 58.3 cm 20 cm From Medial Malleolus 66.7 cm 30 cm From Medial Malleolus 77.5 cm 40 cm From Medial Malleolus 76.8 cm 50 cm From Medial Malleolus 75.7 cm 60 cm From Medial Malleolus 71.2 cm Knee Joint 76 cm PT-OP-Q Treatments Start: 11/24/23 08:48 Freq: Status: Active Protocol: Document 01/19/24 10:38 [facility] (Rec: 01/19/24 11:18 [facility] [id number]) Lymphedema Treatment Manual Lymphatic Drainage Location francisco LE's Duration 40 Comments Sequential pneumatic pump to each leg 20 min during MLD opposite side. Lymphedema Wrapping Materials Francisco LE's with Coban Lite system toes to knees, black foam anterior ankle crease. Cast padding proximal lower leg to decrease blistering. No Bioflect due to being laundered. Encouraged patient to obtain second pair but unable due to finances. Has worn velcro wraps for knees over Bioflect per her report Sequential Lymphedema Exercises Comments francisco LEs and trunk, UE's to facilitate lymphatic flow Other Other application of Cetaphil lotion after MLD PT-OP-R Modalities Start: 11/24/23 08:48 Freq: Status: Active Protocol: Document 01/19/24 10:38 [facility] (Rec: 01/19/24 11:18 [facility] [id number]) Compression Pump Treatment Treatment Location francisco LEs Pressure Amount (mmHg) (mmHG) 45 Inflation Time (Seconds) 30 Deflation Time (Seconds) 5 Treatment Tolerance Good Treatment Comments during MLD opp LE PT-OP-T Assessment and Plan Start: 11/24/23 08:48 Freq: Status: Active Protocol: Document 01/19/24 10:38 [facility] (Rec: 01/19/24 11:18 [facility] [id number]) Physical Therapy Assessment Impairments Impairments Activity Tolerance,Edema,Gait, Soft Tissue Mobility Goals Two Impairment Lymphedema life impact scale score 34% Short Term Goal (STG) Decrease score to no greater than24% as measure of improved activity tolerance and quality of life STG Duration 12/28/23 [facility] Goal (LTG) Decrease lymphedema life impact scale score to no greater than 15% as measure of improved ability to self manage her lymphedema and improved quality of life LTG Duration 02/24/24 One Impairment lymphedema francisco LE's Short Term Goal (STG) Instruct and review all aspects of lymphedema care including skin care, manual lymphatic drainage and use of her lymphedema pump, compression, exercise, and elevation. STG Duration 12/28/23 [facility] Goal (LTG) Patient to be able to self manage all aspects of her lymphedema including donning and doffing appropriate compression garments and use of sequential pneumatic pump LTG Duration 02/22/24 Three Impairment gait impairment Impairment uses FWW and doesn't ambulate significantly other than to come for medical appointments [facility] Goal (LTG) Patient able to ambulate for at least 10 minutes with least restrictive device LTG Duration 02/22/24 Progress Towards Goals Progress Towards Goals Slow Progress due to Activity Tolerance,Slow Progress due to Medical Issues,Slow Progress - Other Progress Comments financial limitations unhoused status Assessment Summary Assessment Noted decreased circumference at francisco ankles, most of left LE and about half of right LE measurements; Bioflect and compression wraps helpful. REports wounds continue to heal slowly due to her chemo treatments (next today), wound care right before PT today. Limited finances and unhoused status as well as multiple medical issues contribute to patient slow progress. Physical Therapy Plan Frequency and Duration Frequency of Treatment 20 visits Duration of treatment (weeks) 12 Plan of Care Start Date 11/24/23 Plan of Care End Date 02/24/24 Therapeutic Interventions Therapeutic Interventions Gait Training,Home Exercise Program,Lymphedema Management, Manual Therapy,Patient/ Caregiver Education,Self-Care/ Home Management,Soft Tissue Mobilization,Therapeutic Activities Modalities Vasopneumatic Devices Next Visit Focus/Plan Next Note Type Treatment Note Next Visit Plan Continue CDT. Return to [employer] exercise as able.
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
--- NOTE | 2024-02-09 12:12 | PT.OTN ---
Current Diagnoses Lymphedema, not elsewhere classified (02/09/24) Physical Therapy Treatment Note PT-OP-A Visit Information Start: 11/24/23 08:48 Freq: Status: Active Protocol: Document 02/09/24 10:36 SAK (Rec: 02/09/24 11:00 [facility] [id number]) Out-Patient Physical Therapy Visit Information Visit Information Visit Type Treatment Note Visit Start Time 10:35 Visit Stop Time 12:00 Visit Number 12 Evaluation Information Evaluation Date 11/24/23 Precautions Precautions no wound vac PT-OP-B Current Condition Start: 11/24/23 08:48 Freq: Status: Active Protocol: Document 02/09/24 10:36 SAK (Rec: 02/09/24 11:00 SAK [id number]) Current Condition History of Current Condition Onset Date 2+ years Current Complaints lymphedema bilateral LE's History of Current Condition Patient has long history of lymphedema francisco LE's, previously seen in this clinic . Discharged from PT after wounds healed, fit for bilateral velcro compression wraps. Patient has now developed multiple new wounds and her lymphedema has worsened. Contributing factors are treatment for pelvic cancer, currently receiving chemotherapy treatments, as well as homelessness and difficulty performing self management program, plus obesity. States she cant bend to put on velcro wraps, has been wearing compression tights: Bioflect. Prior Treatments and Tests prior wound care and lymphedema management PT-OP-C Subjective Start: 11/24/23 08:48 Freq: Status: Active Protocol: Document 02/09/24 10:36 SAK (Rec: 02/09/24 11:00 [facility] [id number]) OP-PT Subjective Patient Comments Patient Comments Has been prescribed a week of new antibiotic. Had chemo 2 days ago, bone marrow shot yesterday. Has been wearing Bioflect compression consistently now that doesn't have wound vac. Had more blisters develop right LE so more bandages. PT-OP-F Manual Assessment Start: 11/24/23 08:48 Freq: Status: Active Protocol: Document 11/24/23 09:30 SAK (Rec: 11/24/23 16:01 SAK [id number]) Manual Assessments Soft Tissue Assessment Soft Tissue Mobility Assessment hyperkeratosis and fibrosis bilateral lower legs PT-OP-G Mobility & Gait Start: 11/24/23 08:48 Freq: Status: Active Protocol: Document 11/24/23 09:30 [facility] (Rec: 11/24/23 16:01 [facility] [id number]) OP Gait Assessment Gait Gait Assistance Required: Independent Assistive Devices Assistive Device Front Wheeled Walker Gait Deviations General Gait Pattern Antalgic,Decreased Stride Length,Decreased Feet Clearance Factors Limiting Gait Function Factors Limiting Gait Function Decreased Activity Tolerance, Decreased Strength PT-OP-K Range of Motion Start: 11/24/23 08:48 Freq: Status: Active Protocol: Document 11/24/23 09:30 [facility] (Rec: 11/24/23 16:01 [facility] [id number]) Hip Goniometric Range of Motion Hip francisco Hip ROM WFL No Comments mod decrease Hip ROM Limitations Hip ROM Limitations Soft Tissue Tightness,Muscle Weakness Knee Goniometric Range of Motion Knee francisco Knee ROM WFL No Comments flexion limited by tissue approximation Ankle and Foot Goniometric Range of Motion Ankle and Foot francisco Ankle/Foot ROM WFL Yes PT-OP-L Special Tests Start: 11/24/23 08:48 Freq: Status: Active Protocol: Document 11/24/23 09:30 [facility] (Rec: 11/24/23 16:02 [facility] [id number]) Special Tests Other Special Tests Special Tests Stemmer sign positive bilaterally PT-OP-M Strength Start: 11/24/23 08:48 Freq: Status: Active Protocol: Document 11/24/23 09:30 [facility] (Rec: 11/24/23 16:03 [facility] [id number]) Hip Strength Hip Manual Muscle Testing francisco Comments limited to less than 3/5 francisco, impacted by both muscle weakness and weight of legs with lymphedema Knee Strength Knee Manual Muscle Testing francisco Flexion (S2) 3+ Fair+ Extension (L3) 3+ Fair+ Ankle/Foot Strength Ankle and Foot Manual Muscle Testing francisco Dorsiflexion (L4) 4- Good- Plantarflexion (S1) 4- Good- PT-OP-N Lymphedema Start: 11/24/23 08:48 Freq: Status: Active Protocol: Document 02/09/24 10:36 [facility] (Rec: 02/09/24 11:00 [facility] [id number]) Lymphedema Measurements Lower Extremity Circumference Measurements Left Affected MT Heads 23.5 cm Mid-foot 24.7 cm Medial Malleolus 34.5 cm 10 cm From Medial Malleolus 49.4 cm 20 cm From Medial Malleolus 54.3 cm 30 cm From Medial Malleolus 63.5 cm 40 cm From Medial Malleolus 68.8 cm 50 cm From Medial Malleolus 71.7 cm 60 cm From Medial Malleolus 76 cm Knee Joint 68.8 cm right affected MT Heads 26.3 cm Mid-foot 25.2 cm Medial Malleolus 36.4 cm 10 cm From Medial Malleolus 55.9 cm 20 cm From Medial Malleolus 65.5 cm 30 cm From Medial Malleolus 67.4 cm 40 cm From Medial Malleolus 69.9 cm 50 cm From Medial Malleolus 70.8 cm 60 cm From Medial Malleolus 73.7 cm Knee Joint 69.9 cm PT-OP-Q Treatments Start: 11/24/23 08:48 Freq: Status: Active Protocol: Document 02/09/24 10:36 [facility] (Rec: 02/09/24 11:00 [facility] [id number]) Lymphedema Treatment Manual Lymphatic Drainage Location francisco LE's Duration 40 Comments Sequential pneumatic pump to each leg 20 min during MLD opposite side. Lymphedema Wrapping Materials Francisco LE's with Coban Lite system toes to knees, black foam anterior ankle crease. Cast padding proximal lower leg to decrease blistering. No Bioflect due to being laundered. Encouraged patient to obtain second pair but unable due to finances. Has worn velcro wraps for knees over Bioflect per her report Sequential Lymphedema Exercises Comments francisco LEs and trunk, UE's to facilitate lymphatic flow Compression Garment Assessment Compression Garment Assessment Details Patient wearing Bioflect consistently though being laundered so didn't wear or bring today. Other Other application of Cetaphil lotion after MLD PT-OP-R Modalities Start: 11/24/23 08:48 Freq: Status: Active Protocol: Document 02/09/24 10:36 [facility] (Rec: 02/09/24 11:00 [facility] [id number]) Compression Pump Treatment Treatment Location francisco LEs Pressure Amount (mmHg) (mmHG) 45 Inflation Time (Seconds) 30 Deflation Time (Seconds) 5 Treatment Tolerance Good Treatment Comments during MLD opp LE PT-OP-T Assessment and Plan Start: 11/24/23 08:48 Freq: Status: Active Protocol: Document 02/09/24 10:36 SAK (Rec: 02/09/24 11:00 [facility] [id number]) Physical Therapy Assessment Impairments Impairments Activity Tolerance,Edema,Gait, Soft Tissue Mobility Goals Two Impairment Lymphedema life impact scale score 34% Short Term Goal (STG) Decrease score to no greater than24% as measure of improved activity tolerance and quality of life 01/26/24: 30% STG Duration 12/28/23 Eclectic Doctor Goal (LTG) Decrease lymphedema life impact scale score to no greater than 15% as measure of improved ability to self manage her lymphedema and improved quality of life LTG Duration 02/24/24 One Impairment lymphedema francisco LE's Short Term Goal (STG) Instruct and review all aspects of lymphedema care including skin care, manual lymphatic drainage and use of her lymphedema pump, compression, exercise, and elevation. 01/26/24: goal met STG Duration goal met Eclectic Doctor Goal (LTG) Patient to be able to self manage all aspects of her lymphedema including donning and doffing appropriate compression garments and use of sequential pneumatic pump LTG Duration 02/22/24 Three Impairment gait impairment Impairment uses FWW and doesn't ambulate significantly other than to come for medical appointments Prison Goal (LTG) Patient able to ambulate for at least 10 minutes with least restrictive device 01/26/24: continues to use 4WW but limited activity tolerance due to cancer fatigue. LTG Duration 02/22/24 Progress Towards Goals Progress Towards Goals Slow Progress due to Activity Tolerance,Slow Progress due to Medical Issues,Slow Progress - Other Progress Comments financial limitations unhoused status Assessment Summary Assessment Improved circumferential measurements today likely due to antibiotics as well as wearing compression consistently now that no wound vac. Affect much more positive today. Healing of wounds left LE continues to be slow due to chemo, on further antibiotics. Too fatigued for SciFit after skin care, massage, elevation, and bandaging today. Use of sequential pneumatic pump on side not receiving MLD during treatment continues with good benefit as well. Continues to benefit from PT for CDT. Physical Therapy Plan Frequency and Duration Frequency of Treatment 20 visits Duration of treatment (weeks) 12 Plan of Care Start Date 11/24/23 Plan of Care End Date 02/24/24 Therapeutic Interventions Therapeutic Interventions Gait Training,Home Exercise Program,Lymphedema Management, Manual Therapy,Patient/ Caregiver Education,Self-Care/ Home Management,Soft Tissue Mobilization,Therapeutic Activities Modalities Vasopneumatic Devices Next Visit Focus/Plan Next Note Type Treatment Note Next Visit Plan Continue CDT, therapeutic exercise and gait training as patient tolerates.
--- NOTE | 2024-02-14 08:41 | PT.OTN ---
Current Diagnoses Lymphedema, not elsewhere classified (02/14/24) Physical Therapy Treatment Note PT-OP-A Visit Information Start: 11/24/23 08:48 Freq: Status: Active Protocol: Document 02/14/24 08:15 SAK (Rec: 02/14/24 08:40 SAK [id number]) Out-Patient Physical Therapy Visit Information Visit Information Visit Type Treatment Note Visit Start Time 08:16 Visit Stop Time 09:45 Visit Number 13 Evaluation Information Evaluation Date 11/24/23 PT-OP-B Current Condition Start: 11/24/23 08:48 Freq: Status: Active Protocol: Document 02/14/24 08:15 SAK (Rec: 02/14/24 08:40 [facility]AK [id number]) Current Condition History of Current Condition Onset Date 2+ years Current Complaints lymphedema bilateral LE's History of Current Condition Patient has long history of lymphedema francisco LE's, previously seen in this clinic . Discharged from PT after wounds healed, fit for bilateral velcro compression wraps. Patient has now developed multiple new wounds and her lymphedema has worsened. Contributing factors are treatment for pelvic cancer, currently receiving chemotherapy treatments, as well as homelessness and difficulty performing self management program, plus obesity. States she cant bend to put on velcro wraps, has been wearing compression tights: Bioflect. Prior Treatments and Tests prior wound care and lymphedema management PT-OP-C Subjective Start: 11/24/23 08:48 Freq: Status: Active Protocol: Document 02/14/24 08:15 SAK (Rec: 02/14/24 08:40 [facility]AK [id number]) OP-PT Subjective Patient Comments Patient Comments Had wound care yesterday, bandaging not very good, slid up on foot. Reports thigh wound doing well, unsure about wound above left ankle, no infection PT-OP-F Manual Assessment Start: 11/24/23 08:48 Freq: Status: Active Protocol: Document 11/24/23 09:30 SAK (Rec: 11/24/23 16:01 SAK [id number]) Manual Assessments Soft Tissue Assessment Soft Tissue Mobility Assessment hyperkeratosis and fibrosis bilateral lower legs PT-OP-G Mobility & Gait Start: 11/24/23 08:48 Freq: Status: Active Protocol: Document 11/24/23 09:30 SAK (Rec: 11/24/23 16:01 SAK [id number]) OP Gait Assessment Gait Gait Assistance Required: Independent Assistive Devices Assistive Device Front Wheeled Walker Gait Deviations General Gait Pattern Antalgic,Decreased Stride Length,Decreased Feet Clearance Factors Limiting Gait Function Factors Limiting Gait Function Decreased Activity Tolerance, Decreased Strength PT-OP-K Range of Motion Start: 11/24/23 08:48 Freq: Status: Active Protocol: Document 11/24/23 09:30 SAK (Rec: 11/24/23 16:01 [facility] [id number]) Hip Goniometric Range of Motion Hip francisco Hip ROM WFL No Comments mod decrease Hip ROM Limitations Hip ROM Limitations Soft Tissue Tightness,Muscle Weakness Knee Goniometric Range of Motion Knee francisco Knee ROM WFL No Comments flexion limited by tissue approximation Ankle and Foot Goniometric Range of Motion Ankle and Foot francisco Ankle/Foot ROM WFL Yes PT-OP-L Special Tests Start: 11/24/23 08:48 Freq: Status: Active Protocol: Document 11/24/23 09:30 [facility] (Rec: 11/24/23 16:02 [facility] [id number]) Special Tests Other Special Tests Special Tests Stemmer sign positive bilaterally PT-OP-M Strength Start: 11/24/23 08:48 Freq: Status: Active Protocol: Document 11/24/23 09:30 SAK (Rec: 11/24/23 16:03 [facility] [id number]) Hip Strength Hip Manual Muscle Testing francisco Comments limited to less than 3/5 francisco, impacted by both muscle weakness and weight of legs with lymphedema Knee Strength Knee Manual Muscle Testing francisco Flexion (S2) 3+ Fair+ Extension (L3) 3+ Fair+ Ankle/Foot Strength Ankle and Foot Manual Muscle Testing francisco Dorsiflexion (L4) 4- Good- Plantarflexion (S1) 4- Good- PT-OP-N Lymphedema Start: 11/24/23 08:48 Freq: Status: Active Protocol: Document 02/14/24 08:15 SAK (Rec: 02/14/24 08:40 [facility] [id number]) Lymphedema Measurements Lower Extremity Circumference Measurements Left Affected MT Heads 24.7 cm Mid-foot 24.8 cm Medial Malleolus 33.8 cm 10 cm From Medial Malleolus 47.5 cm 20 cm From Medial Malleolus 52.5 cm 30 cm From Medial Malleolus 59.3 cm 40 cm From Medial Malleolus 71.8 cm 50 cm From Medial Malleolus 72.5 cm 60 cm From Medial Malleolus 74 cm Knee Joint 62.3 cm right affected MT Heads 25.8 cm Mid-foot 24.7 cm Medial Malleolus 33.8 cm 10 cm From Medial Malleolus 49.7 cm 20 cm From Medial Malleolus 58 cm 30 cm From Medial Malleolus 67.3 cm 40 cm From Medial Malleolus 71.1 cm 50 cm From Medial Malleolus 73.9 cm 60 cm From Medial Malleolus 72.8 cm Knee Joint 71.1 cm PT-OP-Q Treatments Start: 11/24/23 08:48 Freq: Status: Active Protocol: Document 02/14/24 08:15 [facility] (Rec: 02/14/24 08:40 [facility] [id number]) Lymphedema Treatment Manual Lymphatic Drainage Location francisco LE's Duration 40 Comments Sequential pneumatic pump to each leg 20 min during MLD opposite side. Lymphedema Wrapping Materials Francisco LE's with Coban Lite system toes to knees, black foam anterior ankle crease. Cast padding proximal lower leg to decrease blistering. No Bioflect due to being laundered. Encouraged patient to obtain second pair but unable due to finances. Has worn velcro wraps for knees over Bioflect per her report Sequential Lymphedema Exercises Comments francisco LEs and trunk, UE's to facilitate lymphatic flow Other Other application of Cetaphil lotion after MLD PT-OP-R Modalities Start: 11/24/23 08:48 Freq: Status: Active Protocol: Document 02/14/24 08:15 SAK (Rec: 02/14/24 08:40 [facility] [id number]) Compression Pump Treatment Treatment Location francisco LEs Pressure Amount (mmHg) (mmHG) 45 Inflation Time (Seconds) 30 Deflation Time (Seconds) 5 Treatment Tolerance Good Treatment Comments during MLD opp LE PT-OP-T Assessment and Plan Start: 11/24/23 08:48 Freq: Status: Active Protocol: Document 02/14/24 08:15 SAK (Rec: 02/14/24 08:40 [facility] [id number]) Physical Therapy Assessment Impairments Impairments Activity Tolerance,Edema,Gait, Soft Tissue Mobility Goals Two Impairment Lymphedema life impact scale score 34% Short Term Goal (STG) Decrease score to no greater than24% as measure of improved activity tolerance and quality of life 01/26/24: 30% STG Duration 12/28/23 Longterm Goal (LTG) Decrease lymphedema life impact scale score to no greater than 15% as measure of improved ability to self manage her lymphedema and improved quality of life LTG Duration 02/24/24 One Impairment lymphedema francisco LE's Short Term Goal (STG) Instruct and review all aspects of lymphedema care including skin care, manual lymphatic drainage and use of her lymphedema pump, compression, exercise, and elevation. 01/26/24: goal met STG Duration goal met [employer] Hel[employer] Goal (LTG) Patient to be able to self manage all aspects of her lymphedema including donning and doffing appropriate compression garments and use of sequential pneumatic pump LTG Duration 02/22/24 Three Impairment gait impairment Impairment uses FWW and doesn't ambulate significantly other than to come for medical appointments Longterm Goal (LTG) Patient able to ambulate for at least 10 minutes with least restrictive device 01/26/24: continues to use 4WW but limited activity tolerance due to cancer fatigue. LTG Duration 02/22/24 Progress Towards Goals Progress Towards Goals Slow Progress due to Activity Tolerance,Slow Progress due to Medical Issues,Slow Progress - Other Progress Comments financial limitations unhoused status Assessment Summary Assessment Improved lower leg measurements, increased at knee, variable knee and upper legs. Has been wearing Bioflect but not knee wraps. Continues with wound care, slow healing due to chemo. Physical Therapy Plan Frequency and Duration Frequency of Treatment 20 visits Duration of treatment (weeks) 12 Plan of Care Start Date 11/24/23 Plan of Care End Date 02/24/24 Therapeutic Interventions Therapeutic Interventions Gait Training,Home Exercise Program,Lymphedema Management, Manual Therapy,Patient/ Caregiver Education,Self-Care/ Home Management,Soft Tissue Mobilization,Therapeutic Activities Modalities Vasopneumatic Devices Next Visit Focus/Plan Next Note Type Treatment Note Next Visit Plan Continue CDT, therapeutic exercise and gait training as patient tolerates.
--- NOTE | 2024-02-16 15:45 | PT.OTRE ---
Current Diagnoses Lymphedema, not elsewhere classified (02/16/24) Visit Care Team Role Provider Type Geovani Elder DO Family Provider Non-Staff Primary Care Provider Specialty: Medical Address: [address] [place] [address] Dr. Mike De Los Santos, [place], [address] Email: Nicolás Schrader MD Attending Provider Physician Referring Provider Specialty: Wound Care Address: [address] [place] [address], [id number] Email: [email or web address] [facility] Re-Evaluation PT-OP-A Visit Information Start: 11/24/23 08:48 Freq: Status: Active Protocol: Document 02/16/24 10:34 [facility] (Rec: 02/16/24 11:09 [facility] [id number]) Out-Patient Physical Therapy Visit Information Visit Information Visit Type Treatment Note Visit Start Time 10:34 Visit Stop Time 12:00 Visit Number 14 Evaluation Information Evaluation Date 11/24/23 PT-OP-B Current Condition Start: 11/24/23 08:48 Freq: Status: Active Protocol: Document 02/16/24 10:34 SAK (Rec: 02/16/24 11:09 [facility]AK [id number]) Current Condition History of Current Condition Onset Date 2+ years Current Complaints lymphedema bilateral LE's History of Current Condition Patient has long history of lymphedema stella LE's, previously seen in this clinic . Discharged from PT after wounds healed, fit for bilateral velcro compression wraps. Patient has now developed multiple new wounds and her lymphedema has worsened. Contributing factors are treatment for pelvic cancer, currently receiving chemotherapy treatments, as well as homelessness and difficulty performing self management program, plus obesity. States she cant bend to put on velcro wraps, has been wearing compression tights: Bioflect. Prior Treatments and Tests prior wound care and lymphedema management PT-OP-C Subjective Start: 11/24/23 08:48 Freq: Status: Active Protocol: Document 02/16/24 10:34 SAK (Rec: 02/16/24 11:09 [facility]AK [id number]) OP-PT Subjective Patient Comments Patient Comments Thigh wound much better, ankle wound a little improvement. Off oral antibiotic, still on topical. Sees cooling tower technician tomorrow for nail trimming. PT-OP-F Manual Assessment Start: 11/24/23 08:48 Freq: Status: Active Protocol: Document 11/24/23 09:30 [facility] (Rec: 11/24/23 16:01 [facility] [id number]) Manual Assessments Soft Tissue Assessment Soft Tissue Mobility Assessment hyperkeratosis and fibrosis bilateral lower legs PT-OP-G Mobility & Gait Start: 11/24/23 08:48 Freq: Status: Active Protocol: Document 11/24/23 09:30 [facility] (Rec: 11/24/23 16:01 [facility] [id number]) OP Gait Assessment Gait Gait Assistance Required: Independent Assistive Devices Assistive Device Front Wheeled Walker Gait Deviations General Gait Pattern Antalgic,Decreased Stride Length,Decreased Feet Clearance Factors Limiting Gait Function Factors Limiting Gait Function Decreased Activity Tolerance, Decreased Strength PT-OP-K Range of Motion Start: 11/24/23 08:48 Freq: Status: Active Protocol: Document 11/24/23 09:30 [facility] (Rec: 11/24/23 16:01 [facility] [id number]) Hip Goniometric Range of Motion Hip Measured in Degrees stella Hip ROM WFL No Comments mod decrease Hip ROM Limitations Hip ROM Limitations Soft Tissue Tightness,Muscle Weakness Knee Goniometric Range of Motion Knee Measured in Degrees stella Knee ROM WFL No Comments flexion limited by tissue approximation Ankle and Foot Goniometric Range of Motion Ankle and Foot Measured in Degrees stella Ankle/Foot ROM WFL Yes PT-OP-L Special Tests Start: 11/24/23 08:48 Freq: Status: Active Protocol: Document 11/24/23 09:30 [facility] (Rec: 11/24/23 16:02 [facility] [id number]) Special Tests Other Special Tests Special Tests Stemmer sign positive bilaterally PT-OP-M Strength Start: 11/24/23 08:48 Freq: Status: Active Protocol: Document 11/24/23 09:30 [facility] (Rec: 11/24/23 16:03 [facility] [id number]) Hip Strength Hip Manual Muscle Testing stella Comments limited to less than 3/5 stella, impacted by both muscle weakness and weight of legs with lymphedema Knee Strength Knee Manual Muscle Testing stella Flexion (S2) 3+ Fair+ Extension (L3) 3+ Fair+ Ankle/Foot Strength Ankle and Foot Manual Muscle Testing stella Dorsiflexion (L4) 4- Good- Plantarflexion (S1) 4- Good- PT-OP-N Lymphedema Start: 11/24/23 08:48 Freq: Status: Active Protocol: Document 02/14/24 08:15 [facility] (Rec: 02/14/24 08:40 [facility] [id number]) Lymphedema Measurements Lower Extremity Circumference Measurements Left Affected MT Heads 24.7 cm Mid-foot 24.8 cm Medial Malleolus 33.8 cm 10 cm From Medial Malleolus 47.5 cm 20 cm From Medial Malleolus 52.5 cm 30 cm From Medial Malleolus 59.3 cm 40 cm From Medial Malleolus 71.8 cm 50 cm From Medial Malleolus 72.5 cm 60 cm From Medial Malleolus 74 cm Knee Joint 62.3 cm right affected MT Heads 25.8 cm Mid-foot 24.7 cm Medial Malleolus 33.8 cm 10 cm From Medial Malleolus 49.7 cm 20 cm From Medial Malleolus 58 cm 30 cm From Medial Malleolus 67.3 cm 40 cm From Medial Malleolus 71.1 cm 50 cm From Medial Malleolus 73.9 cm 60 cm From Medial Malleolus 72.8 cm Knee Joint 71.1 cm PT-OP-Q Treatments Start: 11/24/23 08:48 Freq: Status: Active Protocol: Document 02/16/24 10:34 [facility] (Rec: 02/16/24 11:09 [facility] [id number]) Lymphedema Treatment Manual Lymphatic Drainage Location stella LE's Duration 40 Comments Sequential pneumatic pump to each leg 20 min during MLD opposite side. Lymphedema Wrapping Materials Stella LE's with Coban Lite system toes to knees, black foam anterior ankle crease. Cast padding proximal lower leg to decrease blistering. No Bioflect due to being laundered. Encouraged patient to obtain second pair but unable due to finances. Has worn velcro wraps for knees over Bioflect per her report Sequential Lymphedema Exercises Comments stella LEs and trunk, UE's to facilitate lymphatic flow Compression Garment Assessment Compression Garment Assessment Details Patient wearing Bioflect consistently though being laundered so didn't wear or bring today. Other Other application of Cetaphil lotion after MLD PT-OP-R Modalities Start: 11/24/23 08:48 Freq: Status: Active Protocol: Document 02/16/24 10:34 [facility] (Rec: 02/16/24 11:09 [facility] [id number]) Compression Pump Treatment Treatment Location stella LEs Pressure Amount (mmHg) (mmHG) 45 Inflation Time (Seconds) 30 Deflation Time (Seconds) 5 Treatment Tolerance Good Treatment Comments during MLD opp LE PT-OP-T Assessment and Plan Start: 11/24/23 08:48 Freq: Status: Active Protocol: Document 02/16/24 10:34 [facility] (Rec: 02/16/24 11:09 [facility] [id number]) Physical Therapy Assessment Impairments Impairments Activity Tolerance,Edema,Gait, Soft Tissue Mobility Goals Two Impairment Lymphedema life impact scale score 34% Short Term Goal (STG) Decrease score to no greater than24% as measure of improved activity tolerance and quality of life 01/26/24: 30% 02/16/24: dec to 25% STG Duration 03/29/24 [facility]sp Goal (LTG) Decrease lymphedema life impact scale score to no greater than 15% as measure of improved ability to self manage her lymphedema and improved quality of life LTG Duration 05/18/24 One Impairment lymphedema stella LE's Short Term Goal (STG) Instruct and review all aspects of lymphedema care including skin care, manual lymphatic drainage and use of her lymphedema pump, compression, exercise, and elevation. 01/26/24: goal met STG Duration goal met Rotor Pilot Goal (LTG) Patient to be able to self manage all aspects of her lymphedema including donning and doffing appropriate compression garments and use of sequential pneumatic pump 02/16/24: goal progress, still has challenged with donning Bioflect compression tights and is poorlycompliant to wearing velcro compression wraps on knees due to difficulty. LTG Duration 05/18/24 Three Impairment gait impairment Impairment uses FWW and doesn't ambulate significantly other than to come for medical appointments Usp Goal (LTG) Patient able to ambulate for at least 10 minutes with least restrictive device 01/26/24: continues to use 4WW but limited activity tolerance due to cancer fatigue. 02/16/24: goal progress, and just this week has been able to resume Sci-Fit recumbant elliptical due to decreased weight of legs, improved activity tolerance. Can walk for 4 min max before requiring a rest. LTG Duration 02/22/24 Progress Towards Goals Progress Towards Goals Slow Progress due to Activity Tolerance,Slow Progress due to Medical Issues,Slow Progress - Other Progress Comments financial limitations unhoused status Assessment Summary Assessment No measurements today due to second visit in 1 week. Appears to have maintained reduction from last session lower legs, needs further compression knees and upper legs. Wounds healing per pt /wound care. Still not wearing compression wraps on knees due to difficulty donning but states she will due to continued larger size knees and proximal thighs and PT stressing importance for further fluid reduction. Patient has been compliant wearing Bioflect compression tights over Coban bandaging of feet and lower legs.Improved activity tolerance, able to resume Sci-Fit for first time in more than 1 month. Physical Therapy Plan Frequency and Duration Frequency of Treatment 20 visits Duration of treatment (weeks) 12 Plan of Care Start Date 02/16/24 Plan of Care End Date 05/18/24 Therapeutic Interventions Therapeutic Interventions Gait Training,Home Exercise Program,Lymphedema Management, Manual Therapy,Patient/ Caregiver Education,Self-Care/ Home Management,Soft Tissue Mobilization,Therapeutic Activities Modalities Vasopneumatic Devices Next Visit Focus/Plan Next Note Type Treatment Note Next Visit Plan Continue CDT, therapeutic exercise and gait training as patient tolerates to help her achieve all PT goals 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
--- NOTE | 2024-02-16 15:45 | PT.OPPOC ---
Physical, Occupational & Speech Therapy At [facility] Current Diagnoses Lymphedema, not elsewhere classified (02/16/24) Visit Care Team Role Provider Type Geovani Elder DO Family Provider Non-Staff Primary Care Provider Specialty: Medical Address: [address] [place] [address] Dr. Mike De Los Santos, [place], [address] Email: Nicolás Schrader MD Attending Provider Physician Referring Provider Specialty: Wound Care Address: [address] [place] [address], [id number] Email: [email or web address] Plan Of Care PT-OP-T Assessment and Plan Start: 11/24/23 08:48 Freq: Status: Active Protocol: Document 02/16/24 10:34 [facility] (Rec: 02/16/24 11:09 [facility] [id number]) Physical Therapy Assessment Impairments Impairments Activity Tolerance,Edema,Gait, Soft Tissue Mobility Goals Two Impairment Lymphedema life impact scale score 34% Short Term Goal (STG) Decrease score to no greater than24% as measure of improved activity tolerance and quality of life 01/26/24: 30% 02/16/24: dec to 25% STG Duration 03/29/24 Fpc Goal (LTG) Decrease lymphedema life impact scale score to no greater than 15% as measure of improved ability to self manage her lymphedema and improved quality of life LTG Duration 05/18/24 One Impairment lymphedema stella LÓPEZ's Short Term Goal (STG) Instruct and review all aspects of lymphedema care including skin care, manual lymphatic drainage and use of her lymphedema pump, compression, exercise, and elevation. 01/26/24: goal met STG Duration goal met Neon Sign Installer Goal (LTG) Patient to be able to self manage all aspects of her lymphedema including donning and doffing appropriate compression garments and use of sequential pneumatic pump 02/16/24: goal progress, still has challenged with donning Bioflect compression tights and is poorlycompliant to wearing velcro compression wraps on knees due to difficulty. LTG Duration 05/18/24 Three Impairment gait impairment Impairment uses FWW and doesn't ambulate significantly other than to come for medical appointments Fpc Goal (LTG) Patient able to ambulate for at least 10 minutes with least restrictive device 01/26/24: continues to use 4WW but limited activity tolerance due to cancer fatigue. 02/16/24: goal progress, and just this week has been able to resume Sci-Fit recumbant elliptical due to decreased weight of legs, improved activity tolerance. Can walk for 4 min max before requiring a rest. LTG Duration 02/22/24 Progress Towards Goals Progress Towards Goals Slow Progress due to Activity Tolerance,Slow Progress due to Medical Issues,Slow Progress - Other Progress Comments financial limitations unhoused status Assessment Summary Assessment No measurements today due to second visit in 1 week. Appears to have maintained reduction from last session lower legs, needs further compression knees and upper legs. Wounds healing per pt /wound care. Still not wearing compression wraps on knees due to difficulty donning but states she will due to continued larger size knees and proximal thighs and PT stressing importance for further fluid reduction. Patient has been compliant wearing Bioflect compression tights over Coban bandaging of feet and lower legs.Improved activity tolerance, able to resume Sci-Fit for first time in more than 1 month. Physical Therapy Plan Frequency and Duration Frequency of Treatment 20 visits Duration of treatment (weeks) 12 Plan of Care Start Date 02/16/24 Plan of Care End Date 05/18/24 Therapeutic Interventions Therapeutic Interventions Gait Training,Home Exercise Program,Lymphedema Management, Manual Therapy,Patient/ Caregiver Education,Self-Care/ Home Management,Soft Tissue Mobilization,Therapeutic Activities Modalities Vasopneumatic Devices Next Visit Focus/Plan Next Note Type Treatment Note Next Visit Plan Continue CDT, therapeutic exercise and gait training as patient tolerates to help her achieve all PT goals 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 Plan of Care Dates Plan of Care Start Date 02/16/24 Plan of Care End Date 05/18/24 Electronically Signed by: Lizeth Howard, PT 02/16/24 [id number] If you are in agreement with this Plan of Care, please return a signed and dated copy. I have reviewed this Plan of Care and certify that the skilled therapy services above are required to meet the patient?s needs. Physician Signature Date Printed Name and Credentials Clinical Instructor Signature Printed Name and Credentials
--- NOTE | 2024-02-16 15:45 | PT.OPPOC ---
Physical, Occupational & Speech Therapy At [facility] Current Diagnoses Lymphedema, not elsewhere classified (02/16/24) Visit Care Team Role Provider Type Geovani Elder DO Family Provider Non-Staff Primary Care Provider Specialty: Medical Address: [address] [place] [address] Dr. Mike De Los Santos, [place], [address] Email: Nicolás Schrader MD Attending Provider Physician Referring Provider Specialty: Wound Care Address: [address] [place] [address], [id number] Email: [email or web address] Plan Of Care PT-OP-T Assessment and Plan Start: 11/24/23 08:48 Freq: Status: Active Protocol: Document 02/16/24 10:34 [facility] (Rec: 02/16/24 11:09 [facility] [id number]) Physical Therapy Assessment Impairments Impairments Activity Tolerance,Edema,Gait, Soft Tissue Mobility Goals Two Impairment Lymphedema life impact scale score 34% Short Term Goal (STG) Decrease score to no greater than24% as measure of improved activity tolerance and quality of life 01/26/24: 30% 02/16/24: dec to 25% STG Duration 03/29/24 Senior Living Goal (LTG) Decrease lymphedema life impact scale score to no greater than 15% as measure of improved ability to self manage her lymphedema and improved quality of life LTG Duration 05/18/24 One Impairment lymphedema stella LÓPEZ's Short Term Goal (STG) Instruct and review all aspects of lymphedema care including skin care, manual lymphatic drainage and use of her lymphedema pump, compression, exercise, and elevation. 01/26/24: goal met STG Duration goal met Trainman Goal (LTG) Patient to be able to self manage all aspects of her lymphedema including donning and doffing appropriate compression garments and use of sequential pneumatic pump 02/16/24: goal progress, still has challenged with donning Bioflect compression tights and is poorlycompliant to wearing velcro compression wraps on knees due to difficulty. LTG Duration 05/18/24 Three Impairment gait impairment Impairment uses FWW and doesn't ambulate significantly other than to come for medical appointments Senior Living Goal (LTG) Patient able to ambulate for at least 10 minutes with least restrictive device 01/26/24: continues to use 4WW but limited activity tolerance due to cancer fatigue. 02/16/24: goal progress, and just this week has been able to resume Sci-Fit recumbant elliptical due to decreased weight of legs, improved activity tolerance. Can walk for 4 min max before requiring a rest. LTG Duration 02/22/24 Progress Towards Goals Progress Towards Goals Slow Progress due to Activity Tolerance,Slow Progress due to Medical Issues,Slow Progress - Other Progress Comments financial limitations unhoused status Assessment Summary Assessment No measurements today due to second visit in 1 week. Appears to have maintained reduction from last session lower legs, needs further compression knees and upper legs. Wounds healing per pt /wound care. Still not wearing compression wraps on knees due to difficulty donning but states she will due to continued larger size knees and proximal thighs and PT stressing importance for further fluid reduction. Patient has been compliant wearing Bioflect compression tights over Coban bandaging of feet and lower legs.Improved activity tolerance, able to resume Sci-Fit for first time in more than 1 month. Physical Therapy Plan Frequency and Duration Frequency of Treatment 20 visits Duration of treatment (weeks) 12 Plan of Care Start Date 02/16/24 Plan of Care End Date 05/18/24 Therapeutic Interventions Therapeutic Interventions Gait Training,Home Exercise Program,Lymphedema Management, Manual Therapy,Patient/ Caregiver Education,Self-Care/ Home Management,Soft Tissue Mobilization,Therapeutic Activities Modalities Vasopneumatic Devices Next Visit Focus/Plan Next Note Type Treatment Note Next Visit Plan Continue CDT, therapeutic exercise and gait training as patient tolerates to help her achieve all PT goals 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 Plan of Care Dates Plan of Care Start Date 02/16/24 Plan of Care End Date 05/18/24 Electronically Signed by: Lizeth Howard, PT 02/16/24 [id number] If you are in agreement with this Plan of Care, please return a signed and dated copy. I have reviewed this Plan of Care and certify that the skilled therapy services above are required to meet the patient?s needs. Physician Signature Date Printed Name and Credentials Clinical Instructor Signature Printed Name and Credentials
--- NOTE | 2024-03-12 16:12 | PT.OTN ---
Current Diagnoses Lymphedema, not elsewhere classified (03/12/24) Physical Therapy Treatment Note PT-OP-A Visit Information Start: 11/24/23 08:48 Freq: Status: Active Protocol: Document 03/12/24 13:00 SAK (Rec: 03/12/24 13:29 [facility] [id number]) Out-Patient Physical Therapy Visit Information Visit Information Visit Type Treatment Note Visit Start Time 13:00 Visit Stop Time 14:25 Visit Number 14 Evaluation Information Evaluation Date 11/24/23 PT-OP-B Current Condition Start: 11/24/23 08:48 Freq: Status: Active Protocol: Document 03/12/24 13:00 SAK (Rec: 03/12/24 13:29 SAK [id number]) Current Condition History of Current Condition Onset Date 2+ years Current Complaints lymphedema bilateral LE's History of Current Condition Patient has long history of lymphedema francisco LE's, previously seen in this clinic . Discharged from PT after wounds healed, fit for bilateral velcro compression wraps. Patient has now developed multiple new wounds and her lymphedema has worsened. Contributing factors are treatment for pelvic cancer, currently receiving chemotherapy treatments, as well as homelessness and difficulty performing self management program, plus obesity. States she cant bend to put on velcro wraps, has been wearing compression tights: Bioflect. Prior Treatments and Tests prior wound care and lymphedema management PT-OP-C Subjective Start: 11/24/23 08:48 Freq: Status: Active Protocol: Document 03/12/24 13:00 SAK (Rec: 03/12/24 13:29 [facility] [id number]) OP-PT Subjective Patient Comments Patient Comments Finishing chemo but is going to be starting immunotherapy. Apparently her tumor has grown, is causing more vaginal bleeding. 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 Hasn't been able to wear compression due to the heat, has had Coban on from wound care. PT-OP-F Manual Assessment Start: 11/24/23 08:48 Freq: Status: Active Protocol: Document 11/24/23 09:30 SAK (Rec: 11/24/23 16:01 SAK [id number]) Manual Assessments Soft Tissue Assessment Soft Tissue Mobility Assessment hyperkeratosis and fibrosis bilateral lower legs PT-OP-G Mobility & Gait Start: 11/24/23 08:48 Freq: Status: Active Protocol: Document 11/24/23 09:30 [facility] (Rec: 11/24/23 16:01 [facility] [id number]) OP Gait Assessment Gait Gait Assistance Required: Independent Assistive Devices Assistive Device Front Wheeled Walker Gait Deviations General Gait Pattern Antalgic,Decreased Stride Length,Decreased Feet Clearance Factors Limiting Gait Function Factors Limiting Gait Function Decreased Activity Tolerance, Decreased Strength PT-OP-K Range of Motion Start: 11/24/23 08:48 Freq: Status: Active Protocol: Document 11/24/23 09:30 [facility] (Rec: 11/24/23 16:01 [facility] [id number]) Hip Goniometric Range of Motion Hip francisco Hip ROM WFL No Comments mod decrease Hip ROM Limitations Hip ROM Limitations Soft Tissue Tightness,Muscle Weakness Knee Goniometric Range of Motion Knee francisco Knee ROM WFL No Comments flexion limited by tissue approximation Ankle and Foot Goniometric Range of Motion Ankle and Foot francisco Ankle/Foot ROM WFL Yes PT-OP-L Special Tests Start: 11/24/23 08:48 Freq: Status: Active Protocol: Document 11/24/23 09:30 [facility] (Rec: 11/24/23 16:02 [facility] [id number]) Special Tests Other Special Tests Special Tests Stemmer sign positive bilaterally PT-OP-M Strength Start: 11/24/23 08:48 Freq: Status: Active Protocol: Document 11/24/23 09:30 [facility] (Rec: 11/24/23 16:03 [facility] [id number]) Hip Strength Hip Manual Muscle Testing francisco Comments limited to less than 3/5 francisco, impacted by both muscle weakness and weight of legs with lymphedema Knee Strength Knee Manual Muscle Testing francisco Flexion (S2) 3+ Fair+ Extension (L3) 3+ Fair+ Ankle/Foot Strength Ankle and Foot Manual Muscle Testing francisco Dorsiflexion (L4) 4- Good- Plantarflexion (S1) 4- Good- PT-OP-N Lymphedema Start: 11/24/23 08:48 Freq: Status: Active Protocol: Document 03/12/24 13:00 SAK (Rec: 03/12/24 13:29 [facility] [id number]) Lymphedema Measurements Lower Extremity Circumference Measurements Left Affected MT Heads 24.5 cm Mid-foot 24.8 cm Medial Malleolus 33 cm 10 cm From Medial Malleolus 46 cm 20 cm From Medial Malleolus 53 cm 30 cm From Medial Malleolus 61 cm 40 cm From Medial Malleolus 67.3 cm 50 cm From Medial Malleolus 72.3 cm 60 cm From Medial Malleolus 78.4 cm Knee Joint 62.5 cm right affected MT Heads 25.2 cm Mid-foot 24.7 cm Medial Malleolus 34 cm 10 cm From Medial Malleolus 52.8 cm 20 cm From Medial Malleolus 59.5 cm 30 cm From Medial Malleolus 69.7 cm 40 cm From Medial Malleolus 72.9 cm 50 cm From Medial Malleolus 72.9 cm 60 cm From Medial Malleolus 74.2 cm Knee Joint 72.9 cm PT-OP-Q Treatments Start: 11/24/23 08:48 Freq: Status: Active Protocol: Document 03/12/24 13:00 [facility] (Rec: 03/12/24 16:12 [facility] [id number]) Lymphedema Treatment Manual Lymphatic Drainage Location francisco LE's Duration 40 Comments Sequential pneumatic pump to each leg 20 min during MLD opposite side. Lymphedema Wrapping Materials Francisco LE's with Coban Lite system toes to knees, black foam anterior ankle crease. Cast padding proximal lower leg to decrease blistering. No Bioflect due to being laundered. Encouraged patient to obtain second pair but unable due to finances. Has worn velcro wraps for knees over Bioflect per her report Sequential Lymphedema Exercises Comments francisco LEs and trunk, UE's to facilitate lymphatic flow Compression Garment Assessment Compression Garment Assessment Details not wearing compression garments due to heat and rash. Other Other application of Cetaphil lotion after MLD PT-OP-R Modalities Start: 11/24/23 08:48 Freq: Status: Active Protocol: Document 03/12/24 13:00 [facility] (Rec: 03/12/24 16:12 [facility] [id number]) Compression Pump Treatment Treatment Location francisco LEs Pressure Amount (mmHg) (mmHG) 45 Inflation Time (Seconds) 30 Deflation Time (Seconds) 5 Treatment Tolerance Good Treatment Comments during MLD opp LE PT-OP-T Assessment and Plan Start: 11/24/23 08:48 Freq: Status: Active Protocol: Document 03/12/24 13:00 [facility] (Rec: 03/12/24 13:29 [facility] [id number]) Physical Therapy Assessment Impairments Impairments Activity Tolerance,Edema,Gait, Soft Tissue Mobility Goals Two Impairment Lymphedema life impact scale score 34% Short Term Goal (STG) Decrease score to no greater than24% as measure of improved activity tolerance and quality of life 01/26/24: 30% 02/16/24: dec to 25% STG Duration 03/29/24 Chorus Master Goal (LTG) Decrease lymphedema life impact scale score to no greater than 15% as measure of improved ability to self manage her lymphedema and improved quality of life LTG Duration 05/18/24 One Impairment lymphedema francisco LE's Short Term Goal (STG) Instruct and review all aspects of lymphedema care including skin care, manual lymphatic drainage and use of her lymphedema pump, compression, exercise, and elevation. 01/26/24: goal met STG Duration goal met Chorus Master Goal (LTG) Patient to be able to self manage all aspects of her lymphedema including donning and doffing appropriate compression garments and use of sequential pneumatic pump 02/16/24: goal progress, still has challenged with donning Bioflect compression tights and is poorlycompliant to wearing velcro compression wraps on knees due to difficulty. LTG Duration 05/18/24 Three Impairment gait impairment Impairment uses FWW and doesn't ambulate significantly other than to come for medical appointments Chorus Master Goal (LTG) Patient able to ambulate for at least 10 minutes with least restrictive device 01/26/24: continues to use 4WW but limited activity tolerance due to cancer fatigue. 02/16/24: goal progress, and just this week has been able to resume Sci-Fit recumbant elliptical due to decreased weight of legs, improved activity tolerance. Can walk for 4 min max before requiring a rest. LTG Duration 02/22/24 Progress Towards Goals Progress Towards Goals Slow Progress due to Activity Tolerance,Slow Progress due to Medical Issues,Slow Progress - Other Progress Comments financial limitations unhoused status Assessment Summary Assessment Some increase in circumferential measurements; hasn't had PT since 02/16/24 and couldn't wear compression due to the heat. Skin fragile , patient fatigued, refused recumbant elliptical today due to fatigue. Physical Therapy Plan Frequency and Duration Frequency of Treatment 20 visits Duration of treatment (weeks) 12 Plan of Care Start Date 02/16/24 Plan of Care End Date 05/18/24 Therapeutic Interventions Therapeutic Interventions Gait Training,Home Exercise Program,Lymphedema Management, Manual Therapy,Patient/ Caregiver Education,Self-Care/ Home Management,Soft Tissue Mobilization,Therapeutic Activities Modalities Vasopneumatic Devices Next Visit Focus/Plan Next Note Type Treatment Note Next Visit Plan Continue CDT, therapeutic exercise and gait training as patient tolerates to help her achieve all PT goals 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
--- NOTE | 2024-03-15 13:56 | PT.OTN ---
Current Diagnoses Lymphedema, not elsewhere classified (03/15/24) Physical Therapy Treatment Note PT-OP-A Visit Information Start: 11/24/23 08:48 Freq: Status: Active Protocol: Document 03/15/24 13:00 SAK (Rec: 03/15/24 13:41 [facility] [id number]) Out-Patient Physical Therapy Visit Information Visit Information Visit Type Treatment Note Visit Start Time 13:00 Visit Stop Time 14:25 Visit Number 15 Evaluation Information Evaluation Date 11/24/23 Precautions Precautions cervical CA PT-OP-B Current Condition Start: 11/24/23 08:48 Freq: Status: Active Protocol: Document 03/15/24 13:00 SAK (Rec: 03/15/24 13:41 SAK [id number]) Current Condition History of Current Condition Onset Date 2+ years Current Complaints lymphedema bilateral LE's History of Current Condition Patient has long history of lymphedema francisco LE's, previously seen in this clinic . Discharged from PT after wounds healed, fit for bilateral velcro compression wraps. Patient has now developed multiple new wounds and her lymphedema has worsened. Contributing factors are treatment for pelvic cancer, currently receiving chemotherapy treatments, as well as homelessness and difficulty performing self management program, plus obesity. States she cant bend to put on velcro wraps, has been wearing compression tights: Bioflect. Prior Treatments and Tests prior wound care and lymphedema management PT-OP-C Subjective Start: 11/24/23 08:48 Freq: Status: Active Protocol: Document 03/15/24 13:00 SAK (Rec: 03/15/24 13:41 [facility] [id number]) OP-PT Subjective Patient Comments Patient Comments States in wound care her worst wound left lower leg shows some improvement. Some new open areas just below knees, needs a little less compression proximal lower legs. PT-OP-F Manual Assessment Start: 11/24/23 08:48 Freq: Status: Active Protocol: Document 11/24/23 09:30 SAK (Rec: 11/24/23 16:01 SAK [id number]) Manual Assessments Soft Tissue Assessment Soft Tissue Mobility Assessment hyperkeratosis and fibrosis bilateral lower legs PT-OP-G Mobility & Gait Start: 11/24/23 08:48 Freq: Status: Active Protocol: Document 11/24/23 09:30 SAK (Rec: 11/24/23 16:01 SAK [id number]) OP Gait Assessment Gait Gait Assistance Required: Independent Assistive Devices Assistive Device Front Wheeled Walker Gait Deviations General Gait Pattern Antalgic,Decreased Stride Length,Decreased Feet Clearance Factors Limiting Gait Function Factors Limiting Gait Function Decreased Activity Tolerance, Decreased Strength PT-OP-K Range of Motion Start: 11/24/23 08:48 Freq: Status: Active Protocol: Document 11/24/23 09:30 [facility] (Rec: 11/24/23 16:01 [facility] [id number]) Hip Goniometric Range of Motion Hip francisco Hip ROM WFL No Comments mod decrease Hip ROM Limitations Hip ROM Limitations Soft Tissue Tightness,Muscle Weakness Knee Goniometric Range of Motion Knee francisco Knee ROM WFL No Comments flexion limited by tissue approximation Ankle and Foot Goniometric Range of Motion Ankle and Foot francisco Ankle/Foot ROM WFL Yes PT-OP-L Special Tests Start: 11/24/23 08:48 Freq: Status: Active Protocol: Document 11/24/23 09:30 [facility] (Rec: 11/24/23 16:02 [facility] [id number]) Special Tests Other Special Tests Special Tests Stemmer sign positive bilaterally PT-OP-M Strength Start: 11/24/23 08:48 Freq: Status: Active Protocol: Document 11/24/23 09:30 [facility] (Rec: 11/24/23 16:03 [facility] [id number]) Hip Strength Hip Manual Muscle Testing francisco Comments limited to less than 3/5 francisco, impacted by both muscle weakness and weight of legs with lymphedema Knee Strength Knee Manual Muscle Testing francisco Flexion (S2) 3+ Fair+ Extension (L3) 3+ Fair+ Ankle/Foot Strength Ankle and Foot Manual Muscle Testing francisco Dorsiflexion (L4) 4- Good- Plantarflexion (S1) 4- Good- PT-OP-N Lymphedema Start: 11/24/23 08:48 Freq: Status: Active Protocol: Document 03/15/24 13:00 SAK (Rec: 03/15/24 13:41 [facility] [id number]) Lymphedema Measurements Lower Extremity Circumference Measurements Left Affected MT Heads 25.3 cm Mid-foot 24.6 cm Medial Malleolus 30.8 cm 10 cm From Medial Malleolus 44.2 cm 20 cm From Medial Malleolus 49.3 cm 30 cm From Medial Malleolus 57.3 cm 40 cm From Medial Malleolus 68.9 cm 50 cm From Medial Malleolus 69.9 cm 60 cm From Medial Malleolus 75.8 cm Knee Joint 64.5 cm right affected MT Heads 24.2 cm Mid-foot 24 cm Medial Malleolus 31.7 cm 10 cm From Medial Malleolus 46.8 cm 20 cm From Medial Malleolus 54.4 cm 30 cm From Medial Malleolus 68.5 cm 40 cm From Medial Malleolus 71.7 cm 50 cm From Medial Malleolus 72.1 cm 60 cm From Medial Malleolus 72 cm Knee Joint 71.7 cm PT-OP-Q Treatments Start: 11/24/23 08:48 Freq: Status: Active Protocol: Document 03/15/24 13:00 [facility] (Rec: 03/15/24 13:41 [facility] [id number]) Lymphedema Treatment Manual Lymphatic Drainage Location francisco LE's Duration 40 Comments Sequential pneumatic pump to each leg 20 min during MLD opposite side. Lymphedema Wrapping Materials Francisco LE's with Coban Lite system toes to knees, black foam anterior ankle crease. Cast padding proximal lower leg to decrease blistering. No Bioflect due to being laundered. Encouraged patient to obtain second pair but unable due to finances. Has worn velcro wraps for knees over Bioflect per her report Sequential Lymphedema Exercises Comments francisco LEs and trunk, UE's to facilitate lymphatic flow Compression Garment Assessment Compression Garment Assessment Details not wearing compression garments due to heat and rash. Other Other application of Cetaphil lotion after MLD PT-OP-R Modalities Start: 11/24/23 08:48 Freq: Status: Active Protocol: Document 03/15/24 13:00 [facility] (Rec: 03/15/24 13:41 [facility] [id number]) Compression Pump Treatment Treatment Location francisco LEs Pressure Amount (mmHg) (mmHG) 45 Inflation Time (Seconds) 30 Deflation Time (Seconds) 5 Treatment Tolerance Good Treatment Comments during MLD opp LE PT-OP-T Assessment and Plan Start: 11/24/23 08:48 Freq: Status: Active Protocol: Document 03/15/24 13:00 [facility] (Rec: 03/15/24 13:41 [facility] [id number]) Physical Therapy Assessment Impairments Impairments Activity Tolerance,Edema,Gait, Soft Tissue Mobility Goals Two Impairment Lymphedema life impact scale score 34% Short Term Goal (STG) Decrease score to no greater than24% as measure of improved activity tolerance and quality of life 01/26/24: 30% 02/16/24: dec to 25% STG Duration 03/29/24 Glass Mold Repairer Goal (LTG) Decrease lymphedema life impact scale score to no greater than 15% as measure of improved ability to self manage her lymphedema and improved quality of life LTG Duration 05/18/24 One Impairment lymphedema francisco LE's Short Term Goal (STG) Instruct and review all aspects of lymphedema care including skin care, manual lymphatic drainage and use of her lymphedema pump, compression, exercise, and elevation. 01/26/24: goal met STG Duration goal met Glass Mold Repairer Goal (LTG) Patient to be able to self manage all aspects of her lymphedema including donning and doffing appropriate compression garments and use of sequential pneumatic pump 02/16/24: goal progress, still has challenged with donning Bioflect compression tights and is poorlycompliant to wearing velcro compression wraps on knees due to difficulty. LTG Duration 05/18/24 Three Impairment gait impairment Impairment uses FWW and doesn't ambulate significantly other than to come for medical appointments [facility]cf Goal (LTG) Patient able to ambulate for at least 10 minutes with least restrictive device 01/26/24: continues to use 4WW but limited activity tolerance due to cancer fatigue. 02/16/24: goal progress, and just this week has been able to resume Sci-Fit recumbant elliptical due to decreased weight of legs, improved activity tolerance. Can walk for 4 min max before requiring a rest. LTG Duration 02/22/24 Progress Towards Goals Progress Towards Goals Slow Progress due to Activity Tolerance,Slow Progress due to Medical Issues,Slow Progress - Other Progress Comments financial limitations unhoused status Assessment Summary Assessment Improvement in circumfernerncial measurements today as compared to 2 days ago, good response to PT. Physical Therapy Plan Frequency and Duration Frequency of Treatment 20 visits Duration of treatment (weeks) 12 Plan of Care Start Date 02/16/24 Plan of Care End Date 05/18/24 Therapeutic Interventions Therapeutic Interventions Gait Training,Home Exercise Program,Lymphedema Management, Manual Therapy,Patient/ Caregiver Education,Self-Care/ Home Management,Soft Tissue Mobilization,Therapeutic Activities Modalities Vasopneumatic Devices Next Visit Focus/Plan Next Note Type Treatment Note Next Visit Plan Continue CDT, therapeutic exercise and gait training as patient tolerates to help her achieve all PT goals 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
--- NOTE | 2024-03-19 14:58 | PT.OTN ---
Current Diagnoses Lymphedema, not elsewhere classified (03/19/24) Physical Therapy Treatment Note PT-OP-A Visit Information Start: 11/24/23 08:48 Freq: Status: Active Protocol: Document 03/19/24 14:33 SAK (Rec: 03/19/24 14:58 [facility] [id number]) Out-Patient Physical Therapy Visit Information Visit Information Visit Type Treatment Note Visit Start Time 14:32 Visit Number 16 Evaluation Information Evaluation Date 11/24/23 Precautions Precautions cervical CA PT-OP-B Current Condition Start: 11/24/23 08:48 Freq: Status: Active Protocol: Document 03/19/24 14:33 SAK (Rec: 03/19/24 14:58 [facility] [id number]) Current Condition History of Current Condition Onset Date 2+ years Current Complaints lymphedema bilateral LE's History of Current Condition Patient has long history of lymphedema francisco LE's, previously seen in this clinic . Discharged from PT after wounds healed, fit for bilateral velcro compression wraps. Patient has now developed multiple new wounds and her lymphedema has worsened. Contributing factors are treatment for pelvic cancer, currently receiving chemotherapy treatments, as well as homelessness and difficulty performing self management program, plus obesity. States she cant bend to put on velcro wraps, has been wearing compression tights: Bioflect. Prior Treatments and Tests prior wound care and lymphedema management PT-OP-C Subjective Start: 11/24/23 08:48 Freq: Status: Active Protocol: Document 03/15/24 13:00 SAK (Rec: 03/15/24 13:41 [facility] [id number]) OP-PT Subjective Patient Comments Patient Comments States in wound care her worst wound left lower leg shows some improvement. Some new open areas just below knees, needs a little less compression proximal lower legs. PT-OP-F Manual Assessment Start: 11/24/23 08:48 Freq: Status: Active Protocol: Document 11/24/23 09:30 SAK (Rec: 11/24/23 16:01 SAK [id number]) Manual Assessments Soft Tissue Assessment Soft Tissue Mobility Assessment hyperkeratosis and fibrosis bilateral lower legs PT-OP-G Mobility & Gait Start: 11/24/23 08:48 Freq: Status: Active Protocol: Document 11/24/23 09:30 SAK (Rec: 11/24/23 16:01 SAK [id number]) OP Gait Assessment Gait Gait Assistance Required: Independent Assistive Devices Assistive Device Front Wheeled Walker Gait Deviations General Gait Pattern Antalgic,Decreased Stride Length,Decreased Feet Clearance Factors Limiting Gait Function Factors Limiting Gait Function Decreased Activity Tolerance, Decreased Strength PT-OP-K Range of Motion Start: 11/24/23 08:48 Freq: Status: Active Protocol: Document 11/24/23 09:30 SAK (Rec: 11/24/23 16:01 SAK [id number]) Hip Goniometric Range of Motion Hip francisco Hip ROM WFL No Comments mod decrease Hip ROM Limitations Hip ROM Limitations Soft Tissue Tightness,Muscle Weakness Knee Goniometric Range of Motion Knee francisco Knee ROM WFL No Comments flexion limited by tissue approximation Ankle and Foot Goniometric Range of Motion Ankle and Foot francisco Ankle/Foot ROM WFL Yes PT-OP-L Special Tests Start: 11/24/23 08:48 Freq: Status: Active Protocol: Document 11/24/23 09:30 SAK (Rec: 11/24/23 16:02 SAK [id number]) Special Tests Other Special Tests Special Tests Stemmer sign positive bilaterally PT-OP-M Strength Start: 11/24/23 08:48 Freq: Status: Active Protocol: Document 11/24/23 09:30 SAK (Rec: 11/24/23 16:03 SAK [id number]) Hip Strength Hip Manual Muscle Testing francisco Comments limited to less than 3/5 francisco, impacted by both muscle weakness and weight of legs with lymphedema Knee Strength Knee Manual Muscle Testing francisco Flexion (S2) 3+ Fair+ Extension (L3) 3+ Fair+ Ankle/Foot Strength Ankle and Foot Manual Muscle Testing francisco Dorsiflexion (L4) 4- Good- Plantarflexion (S1) 4- Good- PT-OP-N Lymphedema Start: 11/24/23 08:48 Freq: Status: Active Protocol: Document 03/19/24 14:33 SAK (Rec: 03/19/24 14:58 [facility] [id number]) Lymphedema Measurements Lower Extremity Circumference Measurements Left Affected MT Heads 24.7 cm Mid-foot 24.7 cm Medial Malleolus 32.8 cm 10 cm From Medial Malleolus 47.2 cm 20 cm From Medial Malleolus 50 cm 30 cm From Medial Malleolus 62.3 cm 40 cm From Medial Malleolus 68.6 cm 50 cm From Medial Malleolus 71 cm 60 cm From Medial Malleolus 76.2 cm Knee Joint 61.8 cm right affected MT Heads 25.3 cm Mid-foot 24.5 cm Medial Malleolus 33.6 cm 10 cm From Medial Malleolus 45.9 cm 20 cm From Medial Malleolus 52.7 cm 30 cm From Medial Malleolus 65.8 cm 40 cm From Medial Malleolus 71.2 cm 50 cm From Medial Malleolus 72.7 cm 60 cm From Medial Malleolus 72.9 cm Knee Joint 72.9 cm PT-OP-Q Treatments Start: 11/24/23 08:48 Freq: Status: Active Protocol: Document 03/19/24 14:33 [facility] (Rec: 03/19/24 14:58 [facility] [id number]) Lymphedema Treatment Manual Lymphatic Drainage Location francisco LE's Duration 40 Comments Sequential pneumatic pump to each leg 20 min during MLD opposite side. Lymphedema Wrapping Materials Francisco LE's with Coban Lite system toes to knees, black foam anterior ankle crease. Cast padding proximal lower leg to decrease blistering. No Bioflect due to being laundered. Encouraged patient to obtain second pair but unable due to finances. Has worn velcro wraps for knees over Bioflect per her report Sequential Lymphedema Exercises Comments francisco LEs and trunk, UE's to facilitate lymphatic flow Compression Garment Assessment Compression Garment Assessment Details not wearing compression garments due to heat and rash. Other Other application of Cetaphil lotion after MLD PT-OP-R Modalities Start: 11/24/23 08:48 Freq: Status: Active Protocol: Document 03/19/24 14:33 [facility] (Rec: 03/19/24 14:58 [facility] [id number]) Compression Pump Treatment Treatment Location francisco LEs Pressure Amount (mmHg) (mmHG) 45 Inflation Time (Seconds) 30 Deflation Time (Seconds) 5 Treatment Tolerance Good Treatment Comments during MLD opp LE PT-OP-T Assessment and Plan Start: 11/24/23 08:48 Freq: Status: Active Protocol: Document 03/19/24 14:33 [facility] (Rec: 03/19/24 14:58 [facility] [id number]) Physical Therapy Assessment Impairments Impairments Activity Tolerance,Edema,Gait, Soft Tissue Mobility Goals Two Impairment Lymphedema life impact scale score 34% Short Term Goal (STG) Decrease score to no greater than24% as measure of improved activity tolerance and quality of life 01/26/24: 30% 02/16/24: dec to 25% STG Duration 03/29/24 [employer] Assembler Goal (LTG) Decrease lymphedema life impact scale score to no greater than 15% as measure of improved ability to self manage her lymphedema and improved quality of life LTG Duration 05/18/24 One Impairment lymphedema francisco LE's Short Term Goal (STG) Instruct and review all aspects of lymphedema care including skin care, manual lymphatic drainage and use of her lymphedema pump, compression, exercise, and elevation. 01/26/24: goal met STG Duration goal met Camera Assembler Goal (LTG) Patient to be able to self manage all aspects of her lymphedema including donning and doffing appropriate compression garments and use of sequential pneumatic pump 02/16/24: goal progress, still has challenged with donning Bioflect compression tights and is poorlycompliant to wearing velcro compression wraps on knees due to difficulty. LTG Duration 05/18/24 Three Impairment gait impairment Impairment uses FWW and doesn't ambulate significantly other than to come for medical appointments Custodial Goal (LTG) Patient able to ambulate for at least 10 minutes with least restrictive device 01/26/24: continues to use 4WW but limited activity tolerance due to cancer fatigue. 02/16/24: goal progress, and just this week has been able to resume Sci-Fit recumbant elliptical due to decreased weight of legs, improved activity tolerance. Can walk for 4 min max before requiring a rest. LTG Duration 02/22/24 Progress Towards Goals Progress Towards Goals Slow Progress due to Activity Tolerance,Slow Progress due to Medical Issues,Slow Progress - Other Progress Comments financial limitations unhoused status Assessment Summary Assessment Variable measurements today bilateral LE's, still hasn't been able to wear Bioflect compression. Also has been sitting in chair with legs dependent for 2 1/2 hours with Tubigrip on LE's ; Tubigrip has rolled down. Physical Therapy Plan Frequency and Duration Frequency of Treatment 20 visits Duration of treatment (weeks) 12 Plan of Care Start Date 02/16/24 Plan of Care End Date 05/18/24 Therapeutic Interventions Therapeutic Interventions Gait Training,Home Exercise Program,Lymphedema Management, Manual Therapy,Patient/ Caregiver Education,Self-Care/ Home Management,Soft Tissue Mobilization,Therapeutic Activities Modalities Vasopneumatic Devices Next Visit Focus/Plan Next Note Type Treatment Note Next Visit Plan Continue CDT, therapeutic exercise and gait training as patient tolerates to help her achieve all PT goals 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
--- NOTE | 2024-03-22 14:24 | PT.OTN ---
Current Diagnoses Lymphedema, not elsewhere classified (03/22/24) Physical Therapy Treatment Note PT-OP-A Visit Information Start: 11/24/23 08:48 Freq: Status: Active Protocol: Document 03/22/24 13:02 SAK (Rec: 03/22/24 14:22 SAK [id number]) Out-Patient Physical Therapy Visit Information Visit Information Visit Type Treatment Note Visit Start Time 13:02 Visit Stop Time 14:30 Visit Number 17 Evaluation Information Evaluation Date 11/24/23 Precautions Precautions cervical CA PT-OP-B Current Condition Start: 11/24/23 08:48 Freq: Status: Active Protocol: Document 03/22/24 13:02 SAK (Rec: 03/22/24 14:22 SAK [id number]) Current Condition History of Current Condition Onset Date 2+ years Current Complaints lymphedema bilateral LE's History of Current Condition Patient has long history of lymphedema francisco LE's, previously seen in this clinic . Discharged from PT after wounds healed, fit for bilateral velcro compression wraps. Patient has now developed multiple new wounds and her lymphedema has worsened. Contributing factors are treatment for pelvic cancer, currently receiving chemotherapy treatments, as well as homelessness and difficulty performing self management program, plus obesity. States she cant bend to put on velcro wraps, has been wearing compression tights: Bioflect. Prior Treatments and Tests prior wound care and lymphedema management PT-OP-C Subjective Start: 11/24/23 08:48 Freq: Status: Active Protocol: Document 03/22/24 13:02 SAK (Rec: 03/22/24 14:22 SAK [id number]) OP-PT Subjective Patient Comments Patient Comments no new c/o PT-OP-F Manual Assessment Start: 11/24/23 08:48 Freq: Status: Active Protocol: Document 11/24/23 09:30 SAK (Rec: 11/24/23 16:01 SAK [id number]) Manual Assessments Soft Tissue Assessment Soft Tissue Mobility Assessment hyperkeratosis and fibrosis bilateral lower legs PT-OP-G Mobility & Gait Start: 11/24/23 08:48 Freq: Status: Active Protocol: Document 11/24/23 09:30 SAK (Rec: 11/24/23 16:01 SAK [id number]) OP Gait Assessment Gait Gait Assistance Required: Independent Assistive Devices Assistive Device Front Wheeled Walker Gait Deviations General Gait Pattern Antalgic,Decreased Stride Length,Decreased Feet Clearance Factors Limiting Gait Function Factors Limiting Gait Function Decreased Activity Tolerance, Decreased Strength PT-OP-K Range of Motion Start: 11/24/23 08:48 Freq: Status: Active Protocol: Document 11/24/23 09:30 SAK (Rec: 11/24/23 16:01 [facility] [id number]) Hip Goniometric Range of Motion Hip francisco Hip ROM WFL No Comments mod decrease Hip ROM Limitations Hip ROM Limitations Soft Tissue Tightness,Muscle Weakness Knee Goniometric Range of Motion Knee francisco Knee ROM WFL No Comments flexion limited by tissue approximation Ankle and Foot Goniometric Range of Motion Ankle and Foot francisco Ankle/Foot ROM WFL Yes PT-OP-L Special Tests Start: 11/24/23 08:48 Freq: Status: Active Protocol: Document 11/24/23 09:30 SAK (Rec: 11/24/23 16:02 SAK [id number]) Special Tests Other Special Tests Special Tests Stemmer sign positive bilaterally PT-OP-M Strength Start: 11/24/23 08:48 Freq: Status: Active Protocol: Document 11/24/23 09:30 [facility] (Rec: 11/24/23 16:03 [facility] [id number]) Hip Strength Hip Manual Muscle Testing francisco Comments limited to less than 3/5 francisco, impacted by both muscle weakness and weight of legs with lymphedema Knee Strength Knee Manual Muscle Testing francisco Flexion (S2) 3+ Fair+ Extension (L3) 3+ Fair+ Ankle/Foot Strength Ankle and Foot Manual Muscle Testing francisco Dorsiflexion (L4) 4- Good- Plantarflexion (S1) 4- Good- PT-OP-N Lymphedema Start: 11/24/23 08:48 Freq: Status: Active Protocol: Document 03/19/24 14:33 SAK (Rec: 03/19/24 14:58 [facility] [id number]) Lymphedema Measurements Lower Extremity Circumference Measurements Left Affected MT Heads 24.7 cm Mid-foot 24.7 cm Medial Malleolus 32.8 cm 10 cm From Medial Malleolus 47.2 cm 20 cm From Medial Malleolus 50 cm 30 cm From Medial Malleolus 62.3 cm 40 cm From Medial Malleolus 68.6 cm 50 cm From Medial Malleolus 71 cm 60 cm From Medial Malleolus 76.2 cm Knee Joint 61.8 cm right affected MT Heads 25.3 cm Mid-foot 24.5 cm Medial Malleolus 33.6 cm 10 cm From Medial Malleolus 45.9 cm 20 cm From Medial Malleolus 52.7 cm 30 cm From Medial Malleolus 65.8 cm 40 cm From Medial Malleolus 71.2 cm 50 cm From Medial Malleolus 72.7 cm 60 cm From Medial Malleolus 72.9 cm Knee Joint 72.9 cm PT-OP-Q Treatments Start: 11/24/23 08:48 Freq: Status: Active Protocol: Document 03/22/24 13:02 [facility] (Rec: 03/22/24 14:22 [facility] [id number]) Lymphedema Treatment Manual Lymphatic Drainage Location francisco LE's Duration 40 Comments Sequential pneumatic pump to each leg 20 min during MLD opposite side. Lymphedema Wrapping Materials Francisco LE's with Coban Lite system toes to knees, black foam anterior ankle crease. Cast padding proximal lower leg to decrease blistering. No Bioflect due to being laundered. Encouraged patient to obtain second pair but unable due to finances. Has worn velcro wraps for knees over Bioflect per her report Sequential Lymphedema Exercises Comments francisco LEs and trunk, UE's to facilitate lymphatic flow Compression Garment Assessment Compression Garment Assessment Details not wearing compression garments due to heat and rash. Patient Education Compression Garments discussed; patient reports has too much difficulty donning compression wrap Self Manual Lymphatic Drainage reviewed Other Other application of Cetaphil lotion after MLD PT-OP-R Modalities Start: 11/24/23 08:48 Freq: Status: Active Protocol: Document 03/19/24 14:33 [facility] (Rec: 03/19/24 14:58 [facility] [id number]) Compression Pump Treatment Treatment Location francisco LEs Pressure Amount (mmHg) (mmHG) 45 Inflation Time (Seconds) 30 Deflation Time (Seconds) 5 Treatment Tolerance Good Treatment Comments during MLD opp LE PT-OP-T Assessment and Plan Start: 11/24/23 08:48 Freq: Status: Active Protocol: Document 03/22/24 13:02 [facility] (Rec: 03/22/24 14:22 [facility] [id number]) Physical Therapy Assessment Impairments Impairments Activity Tolerance,Edema,Gait, Soft Tissue Mobility Goals Two Impairment Lymphedema life impact scale score 34% Short Term Goal (STG) Decrease score to no greater than24% as measure of improved activity tolerance and quality of life 01/26/24: 30% 02/16/24: dec to 25% STG Duration 03/29/24 [facility] Goal (LTG) Decrease lymphedema life impact scale score to no greater than 15% as measure of improved ability to self manage her lymphedema and improved quality of life LTG Duration 05/18/24 One Impairment lymphedema francisco LE's Short Term Goal (STG) Instruct and review all aspects of lymphedema care including skin care, manual lymphatic drainage and use of her lymphedema pump, compression, exercise, and elevation. 01/26/24: goal met STG Duration goal met Circuit Judge Goal (LTG) Patient to be able to self manage all aspects of her lymphedema including donning and doffing appropriate compression garments and use of sequential pneumatic pump 02/16/24: goal progress, still has challenged with donning Bioflect compression tights and is poorlycompliant to wearing velcro compression wraps on knees due to difficulty. LTG Duration 05/18/24 Three Impairment gait impairment Impairment uses FWW and doesn't ambulate significantly other than to come for medical appointments Circuit Judge Goal (LTG) Patient able to ambulate for at least 10 minutes with least restrictive device 01/26/24: continues to use 4WW but limited activity tolerance due to cancer fatigue. 02/16/24: goal progress, and just this week has been able to resume Sci-Fit recumbant elliptical due to decreased weight of legs, improved activity tolerance. Can walk for 4 min max before requiring a rest. LTG Duration 02/22/24 Progress Towards Goals Progress Towards Goals Slow Progress due to Activity Tolerance,Slow Progress due to Medical Issues,Slow Progress - Other Progress Comments financial limitations unhoused status Assessment Summary Assessment Patient able to increase exercise past couple visits, able to do 5x10 SLR right and 10x left today and move supine to and from sit independently as well. Improved tissue pliability francisco lower legs. Good progress. Patient has not yet resumed wearing Bioflect stockings, reminded of benefits and need to resume . Physical Therapy Plan Frequency and Duration Frequency of Treatment 20 visits Duration of treatment (weeks) 12 Plan of Care Start Date 02/16/24 Plan of Care End Date 05/18/24 Therapeutic Interventions Therapeutic Interventions Gait Training,Home Exercise Program,Lymphedema Management, Manual Therapy,Patient/ Caregiver Education,Self-Care/ Home Management,Soft Tissue Mobilization,Therapeutic Activities Modalities Vasopneumatic Devices Next Visit Focus/Plan Next Note Type Treatment Note Next Visit Plan Continue lymphedema management . Continue to increase exercise component as able. Assure wearing compression stockings (Bioflect).
--- NOTE | 2024-04-03 16:00 | PT.OTN ---
Current Diagnoses Lymphedema, not elsewhere classified (04/03/24) Physical Therapy Treatment Note PT-OP-A Visit Information Start: 11/24/23 08:48 Freq: Status: Active Protocol: Document 04/03/24 14:35 SAK (Rec: 04/03/24 15:05 SAK [id number]) Out-Patient Physical Therapy Visit Information Visit Information Visit Type Treatment Note Visit Start Time 14:37 Visit Stop Time 16:02 Visit Number [id number] Evaluation Information Evaluation Date 11/24/23 Precautions Precautions cervical CA PT-OP-B Current Condition Start: 11/24/23 08:48 Freq: Status: Active Protocol: Document 04/03/24 14:35 SAK (Rec: 04/03/24 15:05 SAK [id number]) Current Condition History of Current Condition Onset Date 2+ years Current Complaints lymphedema bilateral LE's History of Current Condition Patient has long history of lymphedema francisco LE's, previously seen in this clinic . Discharged from PT after wounds healed, fit for bilateral velcro compression wraps. Patient has now developed multiple new wounds and her lymphedema has worsened. Contributing factors are treatment for pelvic cancer, currently receiving chemotherapy treatments, as well as homelessness and difficulty performing self management program, plus obesity. States she cant bend to put on velcro wraps, has been wearing compression tights: Bioflect. Prior Treatments and Tests prior wound care and lymphedema management PT-OP-C Subjective Start: 11/24/23 08:48 Freq: Status: Active Protocol: Document 04/03/24 14:35 SAK (Rec: 04/03/24 15:05 SAK [id number]) OP-PT Subjective Patient Comments Patient Comments Reports she feels her legs have gotten bigger, having more skin issues due to the heat, has bandages on from yesterday wound care appointment, not doing as well , on antibiotics, 1 wound left LE has MRSA. Feels not having PT since 03/22 has also csontributed to worsening PT-OP-F Manual Assessment Start: 11/24/23 08:48 Freq: Status: Active Protocol: Document 11/24/23 09:30 SAK (Rec: 11/24/23 16:01 SAK [id number]) Manual Assessments Soft Tissue Assessment Soft Tissue Mobility Assessment hyperkeratosis and fibrosis bilateral lower legs PT-OP-G Mobility & Gait Start: 11/24/23 08:48 Freq: Status: Active Protocol: Document 11/24/23 09:30 SAK (Rec: 11/24/23 16:01 [facility] [id number]) OP Gait Assessment Gait Gait Assistance Required: Independent Assistive Devices Assistive Device Front Wheeled Walker Gait Deviations General Gait Pattern Antalgic,Decreased Stride Length,Decreased Feet Clearance Factors Limiting Gait Function Factors Limiting Gait Function Decreased Activity Tolerance, Decreased Strength PT-OP-K Range of Motion Start: 11/24/23 08:48 Freq: Status: Active Protocol: Document 11/24/23 09:30 SAK (Rec: 11/24/23 16:01 [facility] [id number]) Hip Goniometric Range of Motion Hip francisco Hip ROM WFL No Comments mod decrease Hip ROM Limitations Hip ROM Limitations Soft Tissue Tightness,Muscle Weakness Knee Goniometric Range of Motion Knee francisco Knee ROM WFL No Comments flexion limited by tissue approximation Ankle and Foot Goniometric Range of Motion Ankle and Foot francisco Ankle/Foot ROM WFL Yes PT-OP-L Special Tests Start: 11/24/23 08:48 Freq: Status: Active Protocol: Document 11/24/23 09:30 [facility] (Rec: 11/24/23 16:02 [facility] [id number]) Special Tests Other Special Tests Special Tests Stemmer sign positive bilaterally PT-OP-M Strength Start: 11/24/23 08:48 Freq: Status: Active Protocol: Document 11/24/23 09:30 SAK (Rec: 11/24/23 16:03 [facility] [id number]) Hip Strength Hip Manual Muscle Testing francisco Comments limited to less than 3/5 francisco, impacted by both muscle weakness and weight of legs with lymphedema Knee Strength Knee Manual Muscle Testing francisco Flexion (S2) 3+ Fair+ Extension (L3) 3+ Fair+ Ankle/Foot Strength Ankle and Foot Manual Muscle Testing francisco Dorsiflexion (L4) 4- Good- Plantarflexion (S1) 4- Good- PT-OP-N Lymphedema Start: 11/24/23 08:48 Freq: Status: Active Protocol: Document 04/03/24 14:35 SAK (Rec: 04/03/24 15:05 SAK [id number]) Lymphedema Measurements Lower Extremity Circumference Measurements Left Affected MT Heads 25.2 cm Mid-foot 24.9 cm Medial Malleolus 31.9 cm 10 cm From Medial Malleolus 48.7 cm 20 cm From Medial Malleolus 55.5 cm 30 cm From Medial Malleolus 66 cm 40 cm From Medial Malleolus 68.2 cm 50 cm From Medial Malleolus 70.8 cm 60 cm From Medial Malleolus 75 cm Knee Joint 64.5 cm - over bandges 10, 20, 30 cm right affected MT Heads 25.4 cm Mid-foot 24.5 cm Medial Malleolus 33.5 cm 10 cm From Medial Malleolus 55.1 cm 20 cm From Medial Malleolus 66.5 cm 30 cm From Medial Malleolus 73.8 cm 40 cm From Medial Malleolus 73.8 cm 50 cm From Medial Malleolus 77.3 cm 60 cm From Medial Malleolus 72 cm Knee Joint 73.8 cm PT-OP-Q Treatments Start: 11/24/23 08:48 Freq: Status: Active Protocol: Document 04/03/24 14:35 [facility] (Rec: 04/03/24 15:05 [facility] [id number]) Lymphedema Treatment Manual Lymphatic Drainage Location francisco LE's Duration 40 Comments Sequential pneumatic pump to each leg 20 min during MLD opposite side. Lymphedema Wrapping Materials Francisco LE's with Coban Lite system toes to knees, black foam anterior ankle crease. Cast padding proximal lower leg to decrease blistering. No Bioflect due to forgot to bring in. Compression wrap applied to right LE Sequential Lymphedema Exercises Comments francisco LEs and trunk, UE's to facilitate lymphatic flow Compression Garment Assessment Compression Garment Assessment Details not wearing compression garments due to heat and rash. Patient Education Self Manual Lymphatic Drainage reviewed Other Other application of Cetaphil lotion after MLD PT-OP-R Modalities Start: 11/24/23 08:48 Freq: Status: Active Protocol: Document 03/19/24 14:33 SAK (Rec: 03/19/24 14:58 [facility] [id number]) Compression Pump Treatment Treatment Location francisco LEs Pressure Amount (mmHg) (mmHG) 45 Inflation Time (Seconds) 30 Deflation Time (Seconds) 5 Treatment Tolerance Good Treatment Comments during MLD opp LE PT-OP-T Assessment and Plan Start: 11/24/23 08:48 Freq: Status: Active Protocol: Document 04/03/24 14:35 SAK (Rec: 04/03/24 15:05 [facility] [id number]) Physical Therapy Assessment Impairments Impairments Activity Tolerance,Edema,Gait, Soft Tissue Mobility Goals Two Impairment Lymphedema life impact scale score 34% Short Term Goal (STG) Decrease score to no greater than24% as measure of improved activity tolerance and quality of life 01/26/24: 30% 02/16/24: dec to 25% STG Duration 03/29/24 Half-Way Goal (LTG) Decrease lymphedema life impact scale score to no greater than 15% as measure of improved ability to self manage her lymphedema and improved quality of life LTG Duration 05/18/24 One Impairment lymphedema francisco LE's Short Term Goal (STG) Instruct and review all aspects of lymphedema care including skin care, manual lymphatic drainage and use of her lymphedema pump, compression, exercise, and elevation. 01/26/24: goal met STG Duration goal met Half-Way Goal (LTG) Patient to be able to self manage all aspects of her lymphedema including donning and doffing appropriate compression garments and use of sequential pneumatic pump 02/16/24: goal progress, still has challenged with donning Bioflect compression tights and is poorlycompliant to wearing velcro compression wraps on knees due to difficulty. LTG Duration 05/18/24 Three Impairment gait impairment Impairment uses FWW and doesn't ambulate significantly other than to come for medical appointments Drying Can Worker Goal (LTG) Patient able to ambulate for at least 10 minutes with least restrictive device 01/26/24: continues to use 4WW but limited activity tolerance due to cancer fatigue. 02/16/24: goal progress, and just this week has been able to resume Sci-Fit recumbant elliptical due to decreased weight of legs, improved activity tolerance. Can walk for 4 min max before requiring a rest. LTG Duration 02/22/24 Progress Towards Goals Progress Towards Goals Slow Progress due to Activity Tolerance,Slow Progress due to Medical Issues,Slow Progress - Other Progress Comments financial limitations unhoused status Assessment Summary Assessment increased circumferential measurements and worsening of wounds likely due to heat as well as no PT 2 wks. Hasn't been able to wear compression tights due to heat. Did bring compression velcro wrap and PT applied to right knee, instructed apply to left as well. Physical Therapy Plan Frequency and Duration Frequency of Treatment 20 visits Duration of treatment (weeks) 12 Plan of Care Start Date 02/16/24 Plan of Care End Date 05/18/24 Therapeutic Interventions Therapeutic Interventions Gait Training,Home Exercise Program,Lymphedema Management, Manual Therapy,Patient/ Caregiver Education,Self-Care/ Home Management,Soft Tissue Mobilization,Therapeutic Activities Modalities Vasopneumatic Devices Next Visit Focus/Plan Next Note Type Treatment Note Next Visit Plan Continue lymphedema management . Continue to increase exercise component as able. Assure wearing compression stockings (Bioflect).
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
--- NOTE | 2024-04-23 16:07 | PT.OTN ---
Current Diagnoses Lymphedema, not elsewhere classified (04/23/24) Physical Therapy Treatment Note PT-OP-A Visit Information Start: 11/24/23 08:48 Freq: Status: Active Protocol: Document 04/23/24 14:31 SAK (Rec: 04/23/24 14:[address] [facility] [id number]) Out-Patient Physical Therapy Visit Information Visit Information Visit Type Treatment Note Visit Note 03/07 since last recert Visit Start Time 14:32 Visit Stop Time 15:58 Visit Number 20 Evaluation Information Evaluation Date 11/24/23 PT-OP-B Current Condition Start: 11/24/23 08:48 Freq: Status: Active Protocol: Document 04/23/24 14:31 SAK (Rec: 04/23/24 14:[address] [facility] [id number]) Current Condition History of Current Condition Onset Date 2+ years Current Complaints lymphedema bilateral LE's History of Current Condition Patient has long history of lymphedema francisco LE's, previously seen in this clinic . Discharged from PT after wounds healed, fit for bilateral velcro compression wraps. Patient has now developed multiple new wounds and her lymphedema has worsened. Contributing factors are treatment for pelvic cancer, currently receiving chemotherapy treatments, as well as homelessness and difficulty performing self management program, plus obesity. States she cant bend to put on velcro wraps, has been wearing compression tights: Bioflect. Prior Treatments and Tests prior wound care and lymphedema management PT-OP-C Subjective Start: 11/24/23 08:48 Freq: Status: Active Protocol: Document 04/23/24 14:31 SAK (Rec: 04/23/24 14:[address] [facility] [id number]) OP-PT Subjective Patient Comments Patient Comments left leg better, right LE healed. On antibiotics due to mild infection left LE PT-OP-F Manual Assessment Start: 11/24/23 08:48 Freq: Status: Active Protocol: Document 11/24/23 09:30 SAK (Rec: 11/24/23 16:01 SAK [id number]) Manual Assessments Soft Tissue Assessment Soft Tissue Mobility Assessment hyperkeratosis and fibrosis bilateral lower legs PT-OP-G Mobility & Gait Start: 11/24/23 08:48 Freq: Status: Active Protocol: Document 11/24/23 09:30 SAK (Rec: 11/24/23 16:01 SAK [id number]) OP Gait Assessment Gait Gait Assistance Required: Independent Assistive Devices Assistive Device Front Wheeled Walker Gait Deviations General Gait Pattern Antalgic,Decreased Stride Length,Decreased Feet Clearance Factors Limiting Gait Function Factors Limiting Gait Function Decreased Activity Tolerance, Decreased Strength PT-OP-K Range of Motion Start: 11/24/23 08:48 Freq: Status: Active Protocol: Document 11/24/23 09:30 SAK (Rec: 11/24/23 16:[address] [facility] [id number]) Hip Goniometric Range of Motion Hip francisco Hip ROM WFL No Comments mod decrease Hip ROM Limitations Hip ROM Limitations Soft Tissue Tightness,Muscle Weakness Knee Goniometric Range of Motion Knee francisco Knee ROM WFL No Comments flexion limited by tissue approximation Ankle and Foot Goniometric Range of Motion Ankle and Foot francisco Ankle/Foot ROM WFL Yes PT-OP-L Special Tests Start: 11/24/23 08:48 Freq: Status: Active Protocol: Document 11/24/23 09:30 SAK (Rec: 11/24/23 16:02 SAK [id number]) Special Tests Other Special Tests Special Tests Stemmer sign positive bilaterally PT-OP-M Strength Start: 11/24/23 08:48 Freq: Status: Active Protocol: Document 11/24/23 09:30 SAK (Rec: 11/24/23 16:03 SAK [id number]) Hip Strength Hip Manual Muscle Testing francisco Comments limited to less than 3/5 francisco, impacted by both muscle weakness and weight of legs with lymphedema Knee Strength Knee Manual Muscle Testing francisco Flexion (S2) 3+ Fair+ Extension (L3) 3+ Fair+ Ankle/Foot Strength Ankle and Foot Manual Muscle Testing francisco Dorsiflexion (L4) 4- Good- Plantarflexion (S1) 4- Good- PT-OP-N Lymphedema Start: 11/24/23 08:48 Freq: Status: Active Protocol: Document 04/23/24 14:31 SAK (Rec: 04/23/24 14:[address] [facility] [id number]) Lymphedema Measurements Lower Extremity Circumference Measurements Left Affected MT Heads 24.8 cm Mid-foot 25.8 cm Medial Malleolus 38 cm 10 cm From Medial Malleolus 52.3 cm 20 cm From Medial Malleolus 55.5 cm 30 cm From Medial Malleolus 66.2 cm 40 cm From Medial Malleolus 72.2 cm 50 cm From Medial Malleolus 73.3 cm 60 cm From Medial Malleolus 71 cm Knee Joint 71.7 cm right affected MT Heads 25 cm Mid-foot 24.7 cm Medial Malleolus 35 cm 10 cm From Medial Malleolus 55 cm 20 cm From Medial Malleolus 65.3 cm 30 cm From Medial Malleolus 74.5 cm 40 cm From Medial Malleolus 75 cm 50 cm From Medial Malleolus 71.5 cm 60 cm From Medial Malleolus 75 cm Knee Joint 75 cm PT-OP-Q Treatments Start: 11/24/23 08:48 Freq: Status: Active Protocol: Document 04/23/24 14:[address] [facility] (Rec: 04/23/24 14:[address] [facility] [id number]) Therapeutic Activity Therapeutic Activity transfer sit to supine Comments min assist for right LE onto and off treatment table, donning/doffing pants Reps/Minutes 6 Comments min assist Self-Care/Home Management Treatment Education Patient Education Home Exercise Program Lymphedema Treatment Manual Lymphatic Drainage Location francisco LE's Duration 40 Comments Sequential pneumatic pump to each leg 20 min during MLD opposite side. Lymphedema Wrapping Materials Francisco LE's with Coban Lite system toes to knees, black foam anterior ankle crease. Cast padding proximal lower leg to decrease blistering. No Bioflect due to forgot to bring in. Compression wrap applied to right LE Sequential Lymphedema Exercises Comments francisco LEs and trunk, UE's to facilitate lymphatic flow Compression Garment Assessment Compression Garment Assessment Details in laundry Patient Education Self Manual Lymphatic Drainage reviewed Other Other application of Cetaphil lotion after MLD PT-OP-R Modalities Start: 11/24/23 08:48 Freq: Status: Active Protocol: Document 03/19/24 14:[address] [facility] (Rec: 03/19/24 14:[address] [facility] [id number]) Compression Pump Treatment Treatment Location francisco LEs Pressure Amount (mmHg) (mmHG) 45 Inflation Time (Seconds) 30 Deflation Time (Seconds) 5 Treatment Tolerance Good Treatment Comments during MLD opp LE PT-OP-T Assessment and Plan Start: 11/24/23 08:48 Freq: Status: Active Protocol: Document 04/23/24 14:[address] [facility] (Rec: 04/23/24 14:[address] [facility] [id number]) Physical Therapy Assessment Impairments Impairments Activity Tolerance,Edema,Gait, Soft Tissue Mobility Goals Two Impairment Lymphedema life impact scale score 34% Short Term Goal (STG) Decrease score to no greater than24% as measure of improved activity tolerance and quality of life 01/26/24: 30% 02/16/24: dec to 25% STG Duration 03/29/24 Pipe Organ Tuner And Repairer Goal (LTG) Decrease lymphedema life impact scale score to no greater than 15% as measure of improved ability to self manage her lymphedema and improved quality of life LTG Duration 05/18/24 One Impairment lymphedema francisco LE's Short Term Goal (STG) Instruct and review all aspects of lymphedema care including skin care, manual lymphatic drainage and use of her lymphedema pump, compression, exercise, and elevation. 01/26/24: goal met STG Duration goal met Pipe Organ Tuner And Repairer Goal (LTG) Patient to be able to self manage all aspects of her lymphedema including donning and doffing appropriate compression garments and use of sequential pneumatic pump 02/16/24: goal progress, still has challenged with donning Bioflect compression tights and is poorlycompliant to wearing velcro compression wraps on knees due to difficulty. LTG Duration 05/18/24 Three Impairment gait impairment Impairment uses FWW and doesn't ambulate significantly other than to come for medical appointments Jail Goal (LTG) Patient able to ambulate for at least 10 minutes with least restrictive device 01/26/24: continues to use 4WW but limited activity tolerance due to cancer fatigue. 02/16/24: goal progress, and just this week has been able to resume Sci-Fit recumbant elliptical due to decreased weight of legs, improved activity tolerance. Can walk for 4 min max before requiring a rest. LTG Duration 02/22/24 Progress Towards Goals Progress Towards Goals Slow Progress due to Activity Tolerance,Slow Progress due to Medical Issues,Slow Progress - Other Progress Comments financial limitations unhoused status Assessment Summary Assessment Some decrease in circumferential measurements as compared to last session, though some increased due to tourniquet effect of Tubigrip on LE's while in waiting room for 3 hours after wound care. Was put on antibiotics last week due to infection left LE, doing better today. Reports some wound healing noted left LE Physical Therapy Plan Frequency and Duration Frequency of Treatment 20 visits Duration of treatment (weeks) 12 Plan of Care Start Date 02/16/24 Plan of Care End Date 05/18/24 Therapeutic Interventions Therapeutic Interventions Gait Training,Home Exercise Program,Lymphedema Management, Manual Therapy,Patient/ Caregiver Education,Self-Care/ Home Management,Soft Tissue Mobilization,Therapeutic Activities Modalities Vasopneumatic Devices Next Visit Focus/Plan Next Note Type Treatment Note Next Visit Plan Continue lymphedema management .
--- NOTE | 2024-04-26 11:50 | PT.OTN ---
Current Diagnoses Lymphedema, not elsewhere classified (04/26/24) Physical Therapy Treatment Note PT-OP-A Visit Information Start: 11/24/23 08:48 Freq: Status: Active Protocol: Document 04/26/24 10:39 SAK (Rec: 04/26/24 11:00 [facility] [id number]) Out-Patient Physical Therapy Visit Information Visit Information Visit Type Treatment Note Visit Number 21 Evaluation Information Evaluation Date 11/24/23 PT-OP-B Current Condition Start: 11/24/23 08:48 Freq: Status: Active Protocol: Document 04/26/24 10:39 SAK (Rec: 04/26/24 11:00 [facility] [id number]) Current Condition History of Current Condition Onset Date 2+ years Current Complaints lymphedema bilateral LE's History of Current Condition Patient has long history of lymphedema francisco LE's, previously seen in this clinic . Discharged from PT after wounds healed, fit for bilateral velcro compression wraps. Patient has now developed multiple new wounds and her lymphedema has worsened. Contributing factors are treatment for pelvic cancer, currently receiving chemotherapy treatments, as well as homelessness and difficulty performing self management program, plus obesity. States she cant bend to put on velcro wraps, has been wearing compression tights: Bioflect. Prior Treatments and Tests prior wound care and lymphedema management PT-OP-C Subjective Start: 11/24/23 08:48 Freq: Status: Active Protocol: Document 04/26/24 10:39 SAK (Rec: 04/26/24 11:49 SAK [id number]) OP-PT Subjective Patient Comments Patient Comments No new c/o, has been wearing Bioflect compression tights. PT-OP-F Manual Assessment Start: 11/24/23 08:48 Freq: Status: Active Protocol: Document 11/24/23 09:30 SAK (Rec: 11/24/23 16:01 [facility] [id number]) Manual Assessments Soft Tissue Assessment Soft Tissue Mobility Assessment hyperkeratosis and fibrosis bilateral lower legs PT-OP-G Mobility & Gait Start: 11/24/23 08:48 Freq: Status: Active Protocol: Document 11/24/23 09:30 SAK (Rec: 11/24/23 16:01 SAK [id number]) OP Gait Assessment Gait Gait Assistance Required: Independent Assistive Devices Assistive Device Front Wheeled Walker Gait Deviations General Gait Pattern Antalgic,Decreased Stride Length,Decreased Feet Clearance Factors Limiting Gait Function Factors Limiting Gait Function Decreased Activity Tolerance, Decreased Strength PT-OP-K Range of Motion Start: 11/24/23 08:48 Freq: Status: Active Protocol: Document 11/24/23 09:30 SAK (Rec: 11/24/23 16:01 [facility] [id number]) Hip Goniometric Range of Motion Hip francisco Hip ROM WFL No Comments mod decrease Hip ROM Limitations Hip ROM Limitations Soft Tissue Tightness,Muscle Weakness Knee Goniometric Range of Motion Knee francisco Knee ROM WFL No Comments flexion limited by tissue approximation Ankle and Foot Goniometric Range of Motion Ankle and Foot francisco Ankle/Foot ROM WFL Yes PT-OP-L Special Tests Start: 11/24/23 08:48 Freq: Status: Active Protocol: Document 11/24/23 09:30 SAK (Rec: 11/24/23 16:02 [facility] [id number]) Special Tests Other Special Tests Special Tests Stemmer sign positive bilaterally PT-OP-M Strength Start: 11/24/23 08:48 Freq: Status: Active Protocol: Document 11/24/23 09:30 [facility] (Rec: 11/24/23 16:03 [facility] [id number]) Hip Strength Hip Manual Muscle Testing francisco Comments limited to less than 3/5 francisco, impacted by both muscle weakness and weight of legs with lymphedema Knee Strength Knee Manual Muscle Testing francisco Flexion (S2) 3+ Fair+ Extension (L3) 3+ Fair+ Ankle/Foot Strength Ankle and Foot Manual Muscle Testing francisco Dorsiflexion (L4) 4- Good- Plantarflexion (S1) 4- Good- PT-OP-N Lymphedema Start: 11/24/23 08:48 Freq: Status: Active Protocol: Document 04/26/24 10:39 [facility] (Rec: 04/26/24 11:00 [facility] [id number]) Lymphedema Measurements Lower Extremity Circumference Measurements Left Affected MT Heads 24.3 cm Mid-foot 24.7 cm Medial Malleolus 34.5 cm 10 cm From Medial Malleolus 48.5 cm 20 cm From Medial Malleolus 55.5 cm 30 cm From Medial Malleolus 65 cm 40 cm From Medial Malleolus 70.2 cm 50 cm From Medial Malleolus 72.3 cm 60 cm From Medial Malleolus 73.7 cm Knee Joint 69.7 cm right affected MT Heads 25 cm Mid-foot 24.5 cm Medial Malleolus 34.5 cm 10 cm From Medial Malleolus 50.9 cm 20 cm From Medial Malleolus 59.7 cm 30 cm From Medial Malleolus 78.4 cm 40 cm From Medial Malleolus 77 cm 50 cm From Medial Malleolus 74.9 cm 60 cm From Medial Malleolus 80.5 cm Knee Joint 77 cm PT-OP-Q Treatments Start: 11/24/23 08:48 Freq: Status: Active Protocol: Document 04/26/24 10:39 [facility] (Rec: 04/26/24 11:00 [facility] [id number]) Lymphedema Treatment Manual Lymphatic Drainage Location francisco LE's Duration 40 Comments Sequential pneumatic pump to each leg 20 min during MLD opposite side. Lymphedema Wrapping Materials Francisco LE's with Coban Lite system toes to knees, black foam anterior ankle crease. Cast padding proximal lower leg to decrease blistering. No Bioflect due to forgot to bring in. Compression wrap applied to right LE Sequential Lymphedema Exercises Comments francisco LEs and trunk, UE's to facilitate lymphatic flow Compression Garment Assessment Compression Garment Assessment Details in laundry Patient Education Self Manual Lymphatic Drainage reviewed Other Other application of Cetaphil lotion after MLD PT-OP-R Modalities Start: 11/24/23 08:48 Freq: Status: Active Protocol: Document 03/19/24 14:33 [facility] (Rec: 03/19/24 14:58 [facility] [id number]) Compression Pump Treatment Treatment Location francisco LEs Pressure Amount (mmHg) (mmHG) 45 Inflation Time (Seconds) 30 Deflation Time (Seconds) 5 Treatment Tolerance Good Treatment Comments during MLD opp LE PT-OP-T Assessment and Plan Start: 11/24/23 08:48 Freq: Status: Active Protocol: Document 04/26/24 10:39 [facility] (Rec: 04/26/24 11:00 [facility] [id number]) Physical Therapy Assessment Impairments Impairments Activity Tolerance,Edema,Gait, Soft Tissue Mobility Goals Two Impairment Lymphedema life impact scale score 34% Short Term Goal (STG) Decrease score to no greater than24% as measure of improved activity tolerance and quality of life 01/26/24: 30% 02/16/24: dec to 25% STG Duration 03/29/24 Monitoring Manager Goal (LTG) Decrease lymphedema life impact scale score to no greater than 15% as measure of improved ability to self manage her lymphedema and improved quality of life LTG Duration 05/18/24 One Impairment lymphedema francisco LE's Short Term Goal (STG) Instruct and review all aspects of lymphedema care including skin care, manual lymphatic drainage and use of her lymphedema pump, compression, exercise, and elevation. 01/26/24: goal met STG Duration goal met Residential Goal (LTG) Patient to be able to self manage all aspects of her lymphedema including donning and doffing appropriate compression garments and use of sequential pneumatic pump 02/16/24: goal progress, still has challenged with donning Bioflect compression tights and is poorlycompliant to wearing velcro compression wraps on knees due to difficulty. LTG Duration 05/18/24 Three Impairment gait impairment Impairment uses FWW and doesn't ambulate significantly other than to come for medical appointments Monitoring Manager Goal (LTG) Patient able to ambulate for at least 10 minutes with least restrictive device 01/26/24: continues to use 4WW but limited activity tolerance due to cancer fatigue. 02/16/24: goal progress, and just this week has been able to resume Sci-Fit recumbant elliptical due to decreased weight of legs, improved activity tolerance. Can walk for 4 min max before requiring a rest. LTG Duration 02/22/24 Assessment Summary Assessment Decrease in circumferential measurements entire leg left, lower leg right with increased edema kne and proximal despite patient wearing Bioflect garment for proximal edema. Continue with CDT. Physical Therapy Plan Frequency and Duration Frequency of Treatment 20 visits Duration of treatment (weeks) 12 Plan of Care Start Date 02/16/24 Plan of Care End Date 05/18/24 Therapeutic Interventions Therapeutic Interventions Gait Training,Home Exercise Program,Lymphedema Management, Manual Therapy,Patient/ Caregiver Education,Self-Care/ Home Management,Soft Tissue Mobilization,Therapeutic Activities Modalities Vasopneumatic Devices Next Visit Focus/Plan Next Note Type Treatment Note Next Visit Plan Continue lymphedema management .
--- NOTE | 2024-04-26 16:00 | PT.OPPN ---
Current Diagnoses Lymphedema, not elsewhere classified (04/26/24) Physical Therapy Progress Note PT-OP-A Visit Information Start: 11/24/23 08:48 Freq: Status: Active Protocol: Document 04/26/24 10:39 SAK (Rec: 04/26/24 11:00 [facility] [id number]) Out-Patient Physical Therapy Visit Information Visit Information Visit Type Treatment Note Visit Number [id number] Evaluation Information Evaluation Date 11/24/23 PT-OP-B Current Condition Start: 11/24/23 08:48 Freq: Status: Active Protocol: Document 04/26/24 10:39 SAK (Rec: 04/26/24 11:00 [facility] [id number]) Current Condition History of Current Condition Onset Date 2+ years Current Complaints lymphedema bilateral LE's History of Current Condition Patient has long history of lymphedema stella LE's, previously seen in this clinic . Discharged from PT after wounds healed, fit for bilateral velcro compression wraps. Patient has now developed multiple new wounds and her lymphedema has worsened. Contributing factors are treatment for pelvic cancer, currently receiving chemotherapy treatments, as well as homelessness and difficulty performing self management program, plus obesity. States she cant bend to put on velcro wraps, has been wearing compression tights: Bioflect. Prior Treatments and Tests prior wound care and lymphedema management PT-OP-C Subjective Start: 11/24/23 08:48 Freq: Status: Active Protocol: Document 04/26/24 10:39 SAK (Rec: 04/26/24 11:49 [facility] [id number]) OP-PT Subjective Patient Comments Patient Comments No new c/o, has been wearing Bioflect compression tights. PT-OP-F Manual Assessment Start: 11/24/23 08:48 Freq: Status: Active Protocol: Document 11/24/23 09:30 SAK (Rec: 11/24/23 16:01 [facility] [id number]) Manual Assessments Soft Tissue Assessment Soft Tissue Mobility Assessment hyperkeratosis and fibrosis bilateral lower legs PT-OP-G Mobility & Gait Start: 11/24/23 08:48 Freq: Status: Active Protocol: Document 11/24/23 09:30 SAK (Rec: 11/24/23 16:01 [facility] [id number]) OP Gait Assessment Gait Gait Assistance Required: Independent Assistive Devices Assistive Device Front Wheeled Walker Gait Deviations General Gait Pattern Antalgic,Decreased Stride Length,Decreased Feet Clearance Factors Limiting Gait Function Factors Limiting Gait Function Decreased Activity Tolerance, Decreased Strength PT-OP-K Range of Motion Start: 11/24/23 08:48 Freq: Status: Active Protocol: Document 11/24/23 09:30 SAK (Rec: 11/24/23 16:01 [facility] [id number]) Hip Goniometric Range of Motion Hip Measured in Degrees stella Hip ROM WFL No Comments mod decrease Hip ROM Limitations Hip ROM Limitations Soft Tissue Tightness,Muscle Weakness Knee Goniometric Range of Motion Knee Measured in Degrees stella Knee ROM WFL No Comments flexion limited by tissue approximation Ankle and Foot Goniometric Range of Motion Ankle and Foot Measured in Degrees stella Ankle/Foot ROM WFL Yes PT-OP-L Special Tests Start: 11/24/23 08:48 Freq: Status: Active Protocol: Document 11/24/23 09:30 SAK (Rec: 11/24/23 16:02 [facility]AK [id number]) Special Tests Other Special Tests Special Tests Stemmer sign positive bilaterally PT-OP-M Strength Start: 11/24/23 08:48 Freq: Status: Active Protocol: Document 11/24/23 09:30 [facility] (Rec: 11/24/23 16:03 [facility] [id number]) Hip Strength Hip Manual Muscle Testing stella Comments limited to less than 3/5 stella, impacted by both muscle weakness and weight of legs with lymphedema Knee Strength Knee Manual Muscle Testing stella Flexion (S2) 3+ Fair+ Extension (L3) 3+ Fair+ Ankle/Foot Strength Ankle and Foot Manual Muscle Testing stella Dorsiflexion (L4) 4- Good- Plantarflexion (S1) 4- Good- PT-OP-N Lymphedema Start: 11/24/23 08:48 Freq: Status: Active Protocol: Document 04/26/24 10:39 SAK (Rec: 04/26/24 11:00 [facility] [id number]) Lymphedema Measurements Lower Extremity Circumference Measurements Left Affected MT Heads 24.3 cm Mid-foot 24.7 cm Medial Malleolus 34.5 cm 10 cm From Medial Malleolus 48.5 cm 20 cm From Medial Malleolus 55.5 cm 30 cm From Medial Malleolus 65 cm 40 cm From Medial Malleolus 70.2 cm 50 cm From Medial Malleolus 72.3 cm 60 cm From Medial Malleolus 73.7 cm Knee Joint 69.7 cm right affected MT Heads 25 cm Mid-foot 24.5 cm Medial Malleolus 34.5 cm 10 cm From Medial Malleolus 50.9 cm 20 cm From Medial Malleolus 59.7 cm 30 cm From Medial Malleolus 78.4 cm 40 cm From Medial Malleolus 77 cm 50 cm From Medial Malleolus 74.9 cm 60 cm From Medial Malleolus 80.5 cm Knee Joint 77 cm PT-OP-T Assessment and Plan Start: 11/24/23 08:48 Freq: Status: Active Protocol: Document 04/26/24 10:39 [facility] (Rec: 04/26/24 11:00 [facility] [id number]) Physical Therapy Assessment Impairments Impairments Activity Tolerance,Edema,Gait, Soft Tissue Mobility Goals Two Impairment Lymphedema life impact scale score 34% Short Term Goal (STG) Decrease score to no greater than24% as measure of improved activity tolerance and quality of life 01/26/24: 30% 02/16/24: dec to 25% STG Duration 03/29/24 [facility] Goal (LTG) Decrease lymphedema life impact scale score to no greater than 15% as measure of improved ability to self manage her lymphedema and improved quality of life LTG Duration 05/18/24 One Impairment lymphedema stella LE's Short Term Goal (STG) Instruct and review all aspects of lymphedema care including skin care, manual lymphatic drainage and use of her lymphedema pump, compression, exercise, and elevation. 01/26/24: goal met STG Duration goal met [facility] Goal (LTG) Patient to be able to self manage all aspects of her lymphedema including donning and doffing appropriate compression garments and use of sequential pneumatic pump 02/16/24: goal progress, still has challenged with donning Bioflect compression tights and is poorlycompliant to wearing velcro compression wraps on knees due to difficulty. 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 02/16/24: goal progress, and just this week has been able to resume Sci-Fit recumbant elliptical due to decreased weight of legs, improved activity tolerance. Can walk for 4 min max before requiring a rest. LTG Duration 02/22/24 Assessment Summary Assessment Decrease in circumferential measurements entire leg left, lower leg right with increased edema kne and proximal despite patient wearing Bioflect garment for proximal edema. Continue with CDT. Physical Therapy Plan Frequency and Duration Frequency of Treatment 20 visits Duration of treatment (weeks) 12 Plan of Care Start Date 02/16/24 Plan of Care End Date 05/18/24 Therapeutic Interventions Therapeutic Interventions Gait Training,Home Exercise Program,Lymphedema Management, Manual Therapy,Patient/ Caregiver Education,Self-Care/ Home Management,Soft Tissue Mobilization,Therapeutic Activities Modalities Vasopneumatic Devices Next Visit Focus/Plan Next Note Type Treatment Note Next Visit Plan Continue lymphedema management .
--- NOTE | 2024-05-03 16:38 | PT.OTN ---
Current Diagnoses Lymphedema, not elsewhere classified (05/03/24) Physical Therapy Treatment Note PT-OP-A Visit Information Start: 11/24/23 08:48 Freq: Status: Active Protocol: Document 05/03/24 12:58 [facility] (Rec: 05/03/24 13:05 [facility] [id number]) Out-Patient Physical Therapy Visit Information Visit Information Visit Type Treatment Note Visit Start Time 13:00 Visit Stop Time 14:30 Visit Number 22 PT-OP-B Current Condition Start: 11/24/23 08:48 Freq: Status: Active Protocol: Document 05/03/24 12:58 [facility] (Rec: 05/03/24 13:05 [facility] [id number]) Current Condition History of Current Condition Onset Date 2+ years Current Complaints lymphedema bilateral LE's History of Current Condition Patient has long history of lymphedema francisco LE's, previously seen in this clinic . Discharged from PT after wounds healed, fit for bilateral velcro compression wraps. Patient has now developed multiple new wounds and her lymphedema has worsened. Contributing factors are treatment for pelvic cancer, currently receiving chemotherapy treatments, as well as homelessness and difficulty performing self management program, plus obesity. States she cant bend to put on velcro wraps, has been wearing compression tights: Bioflect. Prior Treatments and Tests prior wound care and lymphedema management PT-OP-C Subjective Start: 11/24/23 08:48 Freq: Status: Active Protocol: Document 05/03/24 12:58 [facility] (Rec: 05/03/24 13:05 [facility] [id number]) OP-PT Subjective Patient Comments Patient Comments Not wearing compression wraps on knees because they seem to make whole leg swell worse. Not sure she will be able to wear Bioflect next few days due to hot weather. Decreased edema after use of pump but only able to do occasionally when she stays at a hotel due to unhoused status. Stated left leg wounds healing better without her being on chemo. Trying to get appointment with surgeon to see if she can have soon. PT-OP-F Manual Assessment Start: 11/24/23 08:48 Freq: Status: Active Protocol: Document 11/24/23 09:30 SAK (Rec: 11/24/23 16:01 [facility] [id number]) Manual Assessments Soft Tissue Assessment Soft Tissue Mobility Assessment hyperkeratosis and fibrosis bilateral lower legs PT-OP-G Mobility & Gait Start: 03/28/24 08:48 Freq: Status: Active Protocol: Document 11/24/23 09:30 [facility] (Rec: 11/24/23 16:01 [facility] [id number]) OP Gait Assessment Gait Gait Assistance Required: Independent Assistive Devices Assistive Device Front Wheeled Walker Gait Deviations General Gait Pattern Antalgic,Decreased Stride Length,Decreased Feet Clearance Factors Limiting Gait Function Factors Limiting Gait Function Decreased Activity Tolerance, Decreased Strength PT-OP-K Range of Motion Start: 11/24/23 08:48 Freq: Status: Active Protocol: Document 11/24/23 09:30 [facility]AK (Rec: 11/24/23 16:01 [facility] [id number]) Hip Goniometric Range of Motion Hip francisco Hip ROM WFL No Comments mod decrease Hip ROM Limitations Hip ROM Limitations Soft Tissue Tightness,Muscle Weakness Knee Goniometric Range of Motion Knee francisco Knee ROM WFL No Comments flexion limited by tissue approximation Ankle and Foot Goniometric Range of Motion Ankle and Foot francisco Ankle/Foot ROM WFL Yes PT-OP-L Special Tests Start: 11/24/23 08:48 Freq: Status: Active Protocol: Document 11/24/23 09:30 [facility]AK (Rec: 11/24/23 16:02 [facility] [id number]) Special Tests Other Special Tests Special Tests Stemmer sign positive bilaterally PT-OP-M Strength Start: 11/24/23 08:48 Freq: Status: Active Protocol: Document 11/24/23 09:30 [facility]AK (Rec: 11/24/23 16:03 [facility] [id number]) Hip Strength Hip Manual Muscle Testing francisco Comments limited to less than 3/5 francisco, impacted by both muscle weakness and weight of legs with lymphedema Knee Strength Knee Manual Muscle Testing francisco Flexion (S2) 3+ Fair+ Extension (L3) 3+ Fair+ Ankle/Foot Strength Ankle and Foot Manual Muscle Testing francisco Dorsiflexion (L4) 4- Good- Plantarflexion (S1) 4- Good- PT-OP-N Lymphedema Start: 11/24/23 08:48 Freq: Status: Active Protocol: Document 05/03/24 12:58 [facility] (Rec: 05/03/24 13:28 [facility]AK [id number]) Lymphedema Measurements Lower Extremity Circumference Measurements Left Affected MT Heads 24.2 cm Mid-foot 24.6 cm Medial Malleolus 39 cm 10 cm From Medial Malleolus 52 cm 20 cm From Medial Malleolus 60 cm 30 cm From Medial Malleolus 71.8 cm 40 cm From Medial Malleolus 74 cm 50 cm From Medial Malleolus 75.2 cm 60 cm From Medial Malleolus 76 cm Knee Joint 69.4 cm right affected MT Heads 25.8 cm Mid-foot 25.3 cm Medial Malleolus 35.8 cm 10 cm From Medial Malleolus 57 cm 20 cm From Medial Malleolus 66.6 cm 30 cm From Medial Malleolus 80.8 cm 40 cm From Medial Malleolus 79.4 cm 50 cm From Medial Malleolus 74.4 cm 60 cm From Medial Malleolus 80.4 cm Knee Joint 82 cm PT-OP-Q Treatments Start: 11/24/23 08:48 Freq: Status: Active Protocol: Document 05/03/24 12:58 [facility] (Rec: 05/03/24 13:05 [facility] [id number]) Lymphedema Treatment Manual Lymphatic Drainage Location francisco LE's Duration 40 Comments Sequential pneumatic pump to each leg 20 min during MLD opposite side. Lymphedema Wrapping Materials Francisco LE's with Coban Lite system toes to knees, black foam anterior ankle crease. Cast padding proximal lower leg to decrease blistering. No Bioflect due to forgot to bring in.Patient hasn't been wearing knee wraps because states last time she did the swelling in her LE increased. Did not bring. Advised putting on looser. Sequential Lymphedema Exercises Comments francisco LEs and trunk, UE's to facilitate lymphatic flow Compression Garment Assessment Compression Garment Assessment Details Did not bring velcro wraps due to above but reported she will try looser as advised. No time for PT to assist with Bioflect today and patient reported feeling too fatigued and hot with weather to put on . States she will tonight and or try velcro wraps again. PT emphasized importance of compression. Patient Education Self Manual Lymphatic Drainage reviewed Other Other application of Cetaphil lotion after MLD PT-OP-R Modalities Start: 11/24/23 08:48 Freq: Status: Active Protocol: Document 03/19/24 14:33 [facility] (Rec: 03/19/24 14:58 [facility] [id number]) Compression Pump Treatment Treatment Location francisco LEs Pressure Amount (mmHg) (mmHG) 45 Inflation Time (Seconds) 30 Deflation Time (Seconds) 5 Treatment Tolerance Good Treatment Comments during MLD opp LE PT-OP-T Assessment and Plan Start: 11/24/23 08:48 Freq: Status: Active Protocol: Document 05/03/24 12:58 [facility] (Rec: 05/03/24 13:05 [facility] [id number]) Physical Therapy Assessment Goals Two Impairment Lymphedema life impact scale score 34% Short Term Goal (STG) Decrease score to no greater than24% as measure of improved activity tolerance and quality of life 01/26/24: 30% 02/16/24: dec to 25% STG Duration 03/29/24 [facility] Goal (LTG) Decrease lymphedema life impact scale score to no greater than 15% as measure of improved ability to self manage her lymphedema and improved quality of life LTG Duration 05/18/24 One Impairment lymphedema francisco LÓPEZ's Short Term Goal (STG) Instruct and review all aspects of lymphedema care including skin care, manual lymphatic drainage and use of her lymphedema pump, compression, exercise, and elevation. 01/26/24: goal met STG Duration goal met [facility] Goal (LTG) Patient to be able to self manage all aspects of her lymphedema including donning and doffing appropriate compression garments and use of sequential pneumatic pump 02/16/24: goal progress, still has challenged with donning Bioflect compression tights and is poorlycompliant to wearing velcro compression wraps on knees due to difficulty. LTG Duration 05/18/24 Three Impairment gait impairment Impairment uses FWW and doesn't ambulate significantly other than to come for medical appointments [facility] Goal (LTG) Patient able to ambulate for at least 10 minutes with least restrictive device 01/26/24: continues to use 4WW but limited activity tolerance due to cancer fatigue. 02/16/24: goal progress, and just this week has been able to resume Sci-Fit recumbant elliptical due to decreased weight of legs, improved activity tolerance. Can walk for 4 min max before requiring a rest. LTG Duration 02/22/24 Progress Towards Goals Progress Towards Goals Slow Progress due to Activity Tolerance,Slow Progress due to Medical Issues,Slow Progress - Other Progress Comments financial limitations unhoused status Assessment Summary Assessment Circumferential measurements significantly increased francisco LÓPEZ 's right greater than left, patient uncertain why, possibly heat. Not wearing Bioflect or compression wraps (velcro) due to heat as well as reporting wraps caused increase in size last time used, agreed to try putting them on after leaves PT, only try looser to prevent causing fluid to move distally. Patient symptoms remain difficult to manage due to her multiple medical issues, unhoused status Physical Therapy Plan Frequency and Duration Frequency of Treatment 20 visits Duration of treatment (weeks) 12 Plan of Care Start Date 02/16/24 Plan of Care End Date 05/18/24 Therapeutic Interventions Therapeutic Interventions Gait Training,Home Exercise Program,Lymphedema Management, Manual Therapy,Patient/ Caregiver Education,Self-Care/ Home Management,Soft Tissue Mobilization,Therapeutic Activities Modalities Vasopneumatic Devices Next Visit Focus/Plan Next Note Type Re-Evaluation Next Visit Plan Continue complete decongestive therapy
--- NOTE | 2024-05-07 14:07 | PT.OTN ---
Current Diagnoses Lymphedema, not elsewhere classified (05/07/24) Physical Therapy Treatment Note PT-OP-A Visit Information Start: 11/24/23 08:48 Freq: Status: Active Protocol: Document 05/07/24 13:03 SAK (Rec: 05/07/24 13:38 [facility] [id number]) Out-Patient Physical Therapy Visit Information Visit Information Visit Type Treatment Note Visit Start Time 13:00 Visit Stop Time 14:30 Visit Number 23 Evaluation Information Evaluation Date 11/24/23 PT-OP-B Current Condition Start: 11/24/23 08:48 Freq: Status: Active Protocol: Document 05/07/24 13:03 SAK (Rec: 05/07/24 13:38 [facility] [id number]) Current Condition History of Current Condition Onset Date 2+ years Current Complaints lymphedema bilateral LE's History of Current Condition Patient has long history of lymphedema francisco LE's, previously seen in this clinic . Discharged from PT after wounds healed, fit for bilateral velcro compression wraps. Patient has now developed multiple new wounds and her lymphedema has worsened. Contributing factors are treatment for pelvic cancer, currently receiving chemotherapy treatments, as well as homelessness and difficulty performing self management program, plus obesity. States she cant bend to put on velcro wraps, has been wearing compression tights: Bioflect. Prior Treatments and Tests prior wound care and lymphedema management PT-OP-C Subjective Start: 11/24/23 08:48 Freq: Status: Active Protocol: Document 05/07/24 13:03 SAK (Rec: 05/07/24 13:38 [facility] [id number]) OP-PT Subjective Patient Comments Patient Comments Wore Bioflect yesterday andhad put on after wound care, wounds healing slowly. Having iron infusion tomorrow for 2 1/2 hours. PT-OP-F Manual Assessment Start: 11/24/23 08:48 Freq: Status: Active Protocol: Document 11/24/23 09:30 SAK (Rec: 11/24/23 16:01 SAK [id number]) Manual Assessments Soft Tissue Assessment Soft Tissue Mobility Assessment hyperkeratosis and fibrosis bilateral lower legs PT-OP-G Mobility & Gait Start: 11/24/23 08:48 Freq: Status: Active Protocol: Document 11/24/23 09:30 SAK (Rec: 11/24/23 16:01 SAK [id number]) OP Gait Assessment Gait Gait Assistance Required: Independent Assistive Devices Assistive Device Front Wheeled Walker Gait Deviations General Gait Pattern Antalgic,Decreased Stride Length,Decreased Feet Clearance Factors Limiting Gait Function Factors Limiting Gait Function Decreased Activity Tolerance, Decreased Strength PT-OP-K Range of Motion Start: 11/24/23 08:48 Freq: Status: Active Protocol: Document 11/24/23 09:30 [facility] (Rec: 11/24/23 16:01 [facility] [id number]) Hip Goniometric Range of Motion Hip francisco Hip ROM WFL No Comments mod decrease Hip ROM Limitations Hip ROM Limitations Soft Tissue Tightness,Muscle Weakness Knee Goniometric Range of Motion Knee francisco Knee ROM WFL No Comments flexion limited by tissue approximation Ankle and Foot Goniometric Range of Motion Ankle and Foot francisco Ankle/Foot ROM WFL Yes PT-OP-L Special Tests Start: 11/24/23 08:48 Freq: Status: Active Protocol: Document 11/24/23 09:30 [facility] (Rec: 11/24/23 16:02 [facility] [id number]) Special Tests Other Special Tests Special Tests Stemmer sign positive bilaterally PT-OP-M Strength Start: 11/24/23 08:48 Freq: Status: Active Protocol: Document 11/24/23 09:30 [facility] (Rec: 11/24/23 16:03 [facility] [id number]) Hip Strength Hip Manual Muscle Testing francisco Comments limited to less than 3/5 francisco, impacted by both muscle weakness and weight of legs with lymphedema Knee Strength Knee Manual Muscle Testing francisco Flexion (S2) 3+ Fair+ Extension (L3) 3+ Fair+ Ankle/Foot Strength Ankle and Foot Manual Muscle Testing francisco Dorsiflexion (L4) 4- Good- Plantarflexion (S1) 4- Good- PT-OP-N Lymphedema Start: 11/24/23 08:48 Freq: Status: Active Protocol: Document 05/07/24 13:03 [facility] (Rec: 05/07/24 13:38 [facility] [id number]) Lymphedema Measurements Lower Extremity Circumference Measurements right affected MT Heads 27.3 cm Mid-foot 25 cm Medial Malleolus 35.2 cm 10 cm From Medial Malleolus 57.5 cm 20 cm From Medial Malleolus 65.4 cm 30 cm From Medial Malleolus 76.2 cm 40 cm From Medial Malleolus 73.7 cm 50 cm From Medial Malleolus 76.2 cm 60 cm From Medial Malleolus 73.8 cm Knee Joint 79.2 cm PT-OP-Q Treatments Start: 11/24/23 08:48 Freq: Status: Active Protocol: Document 05/07/24 13:03 [facility] (Rec: 05/07/24 14:06 [facility] [id number]) Lymphedema Treatment Manual Lymphatic Drainage Location francisco LE's Duration 40 Comments Sequential pneumatic pump to each leg 20 min during MLD opposite side. Lymphedema Wrapping Materials Francisco LE's with Coban Lite system toes to knees, black foam anterior ankle crease. Cast padding proximal lower leg to decrease blistering. No Bioflect due to forgot to bring in.Patient hasn't been wearing knee wraps because states last time she did the swelling in her LE increased. Did not bring. Advised putting on looser. Sequential Lymphedema Exercises Comments francisco LEs and trunk, UE's to facilitate lymphatic flow Compression Garment Assessment Compression Garment Assessment Details PT assist with donning Bioflect compression stockings Patient Education Self Manual Lymphatic Drainage reviewed Other Other application of Cetaphil lotion after MLD PT-OP-R Modalities Start: 11/24/23 08:48 Freq: Status: Active Protocol: Document 03/19/24 14:33 [facility] (Rec: 03/19/24 14:58 [facility] [id number]) Compression Pump Treatment Treatment Location francisco LEs Pressure Amount (mmHg) (mmHG) 45 Inflation Time (Seconds) 30 Deflation Time (Seconds) 5 Treatment Tolerance Good Treatment Comments during MLD opp LE PT-OP-T Assessment and Plan Start: 11/24/23 08:48 Freq: Status: Active Protocol: Document 05/07/24 13:03 [facility] (Rec: 05/07/24 13:38 [facility] [id number]) Physical Therapy Assessment Impairments Impairments Activity Tolerance,Edema,Gait, Soft Tissue Mobility Goals Two Impairment Lymphedema life impact scale score 34% Short Term Goal (STG) Decrease score to no greater than24% as measure of improved activity tolerance and quality of life 01/26/24: 30% 02/16/24: dec to 25% STG Duration 03/29/24 Second Crusher Goal (LTG) Decrease lymphedema life impact scale score to no greater than 15% as measure of improved ability to self manage her lymphedema and improved quality of life LTG Duration 05/18/24 One Impairment lymphedema francisco LE's Short Term Goal (STG) Instruct and review all aspects of lymphedema care including skin care, manual lymphatic drainage and use of her lymphedema pump, compression, exercise, and elevation. 01/26/24: goal met STG Duration goal met Retirement Goal (LTG) Patient to be able to self manage all aspects of her lymphedema including donning and doffing appropriate compression garments and use of sequential pneumatic pump 02/16/24: goal progress, still has challenged with donning Bioflect compression tights and is poorlycompliant to wearing velcro compression wraps on knees due to difficulty. LTG Duration 05/18/24 Three Impairment gait impairment Impairment uses FWW and doesn't ambulate significantly other than to come for medical appointments Retirement Goal (LTG) Patient able to ambulate for at least 10 minutes with least restrictive device 01/26/24: continues to use 4WW but limited activity tolerance due to cancer fatigue. 02/16/24: goal progress, and just this week has been able to resume Sci-Fit recumbant elliptical due to decreased weight of legs, improved activity tolerance. Can walk for 4 min max before requiring a rest. LTG Duration 02/22/24 Progress Towards Goals Progress Towards Goals Slow Progress due to Activity Tolerance,Slow Progress due to Medical Issues,Slow Progress - Other Progress Comments financial limitations unhoused status Assessment Summary Assessment Noted decrease in circumferential measurements today vs last week, came in wearing Bioflect compression tights; has been too tired to don but was assisted in wound care. Having iron infusion tomorrow to help with anemia. Physical Therapy Plan Frequency and Duration Frequency of Treatment 20 visits Duration of treatment (weeks) 12 Plan of Care Start Date 02/16/24 Plan of Care End Date 05/18/24 Therapeutic Interventions Therapeutic Interventions Gait Training,Home Exercise Program,Lymphedema Management, Manual Therapy,Patient/ Caregiver Education,Self-Care/ Home Management,Soft Tissue Mobilization,Therapeutic Activities Modalities Vasopneumatic Devices Next Visit Focus/Plan Next Note Type Re-Evaluation Next Visit Plan Continue complete decongestive therapy
--- NOTE | 2024-05-09 16:22 | PT.OTN ---
Current Diagnoses Lymphedema, not elsewhere classified (05/09/24) Physical Therapy Treatment Note PT-OP-A Visit Information Start: 11/24/23 08:48 Freq: Status: Active Protocol: Document 05/09/24 13:01 SAK (Rec: 05/09/24 13:32 [facility] [id number]) Out-Patient Physical Therapy Visit Information Visit Information Visit Type Treatment Note Visit Start Time 13:00 Visit Stop Time 14:30 Visit Number 24 Evaluation Information Evaluation Date 11/24/23 Precautions Precautions cervical CA PT-OP-B Current Condition Start: 11/24/23 08:48 Freq: Status: Active Protocol: Document 05/09/24 13:01 SAK (Rec: 05/09/24 13:32 SAK [id number]) Current Condition History of Current Condition Onset Date 2+ years Current Complaints lymphedema bilateral LE's History of Current Condition Patient has long history of lymphedema francisco LE's, previously seen in this clinic . Discharged from PT after wounds healed, fit for bilateral velcro compression wraps. Patient has now developed multiple new wounds and her lymphedema has worsened. Contributing factors are treatment for pelvic cancer, currently receiving chemotherapy treatments, as well as homelessness and difficulty performing self management program, plus obesity. States she cant bend to put on velcro wraps, has been wearing compression tights: Bioflect. Prior Treatments and Tests prior wound care and lymphedema management PT-OP-C Subjective Start: 11/24/23 08:48 Freq: Status: Active Protocol: Document 05/07/24 13:03 SAK (Rec: 05/07/24 13:38 SAK [id number]) OP-PT Subjective Patient Comments Patient Comments Wore Bioflect yesterday andhad put on after wound care, wounds healing slowly. Having iron infusion tomorrow for 2 1/2 hours. PT-OP-F Manual Assessment Start: 11/24/23 08:48 Freq: Status: Active Protocol: Document 11/24/23 09:30 SAK (Rec: 11/24/23 16:01 [facility]AK [id number]) Manual Assessments Soft Tissue Assessment Soft Tissue Mobility Assessment hyperkeratosis and fibrosis bilateral lower legs PT-OP-G Mobility & Gait Start: 11/24/23 08:48 Freq: Status: Active Protocol: Document 11/24/23 09:30 SAK (Rec: 11/24/23 16:01 SAK [id number]) OP Gait Assessment Gait Gait Assistance Required: Independent Assistive Devices Assistive Device Front Wheeled Walker Gait Deviations General Gait Pattern Antalgic,Decreased Stride Length,Decreased Feet Clearance Factors Limiting Gait Function Factors Limiting Gait Function Decreased Activity Tolerance, Decreased Strength PT-OP-K Range of Motion Start: 11/24/23 08:48 Freq: Status: Active Protocol: Document 11/24/23 09:30 [facility] (Rec: 11/24/23 16:01 [facility] [id number]) Hip Goniometric Range of Motion Hip francisco Hip ROM WFL No Comments mod decrease Hip ROM Limitations Hip ROM Limitations Soft Tissue Tightness,Muscle Weakness Knee Goniometric Range of Motion Knee francisco Knee ROM WFL No Comments flexion limited by tissue approximation Ankle and Foot Goniometric Range of Motion Ankle and Foot francisco Ankle/Foot ROM WFL Yes PT-OP-L Special Tests Start: 11/24/23 08:48 Freq: Status: Active Protocol: Document 11/24/23 09:30 [facility] (Rec: 11/24/23 16:02 [facility] [id number]) Special Tests Other Special Tests Special Tests Stemmer sign positive bilaterally PT-OP-M Strength Start: 11/24/23 08:48 Freq: Status: Active Protocol: Document 11/24/23 09:30 [facility] (Rec: 11/24/23 16:03 [facility] [id number]) Hip Strength Hip Manual Muscle Testing francisco Comments limited to less than 3/5 francisco, impacted by both muscle weakness and weight of legs with lymphedema Knee Strength Knee Manual Muscle Testing francisco Flexion (S2) 3+ Fair+ Extension (L3) 3+ Fair+ Ankle/Foot Strength Ankle and Foot Manual Muscle Testing francisco Dorsiflexion (L4) 4- Good- Plantarflexion (S1) 4- Good- PT-OP-N Lymphedema Start: 11/24/23 08:48 Freq: Status: Active Protocol: Document 05/09/24 13:01 [facility] (Rec: 05/09/24 13:32 [facility] [id number]) Lymphedema Measurements Lower Extremity Circumference Measurements Left Affected MT Heads 24.8 cm Mid-foot 24.5 cm Medial Malleolus 34.5 cm 10 cm From Medial Malleolus 49.8 cm 20 cm From Medial Malleolus 57.8 cm 30 cm From Medial Malleolus 70.3 cm 40 cm From Medial Malleolus 76 cm 50 cm From Medial Malleolus 75.8 cm 60 cm From Medial Malleolus 78.8 cm Knee Joint 76.4 cm right affected MT Heads 25.5 cm Mid-foot 24.3 cm Medial Malleolus 33.4 cm 10 cm From Medial Malleolus 54.3 cm 20 cm From Medial Malleolus 59.9 cm 30 cm From Medial Malleolus 75.7 cm 40 cm From Medial Malleolus 79.7 cm 50 cm From Medial Malleolus 78.8 cm 60 cm From Medial Malleolus 74.7 cm Knee Joint 79.7 cm PT-OP-Q Treatments Start: 11/24/23 08:48 Freq: Status: Active Protocol: Document 05/09/24 13:01 [facility] (Rec: 05/09/24 13:32 [facility] [id number]) Therapeutic Activity Therapeutic Activity transfer sit to supine Comments min assist for right LE onto and off treatment table, donning/doffing pants Reps/Minutes 6 Comments min assist Lymphedema Treatment Manual Lymphatic Drainage Location francisco LE's Duration 40 Comments Sequential pneumatic pump to each leg 20 min during MLD opposite side. Lymphedema Wrapping Materials Francisco LE's with Coban Lite system toes to knees, black foam anterior ankle crease. Cast padding proximal lower leg to decrease blistering. No Bioflect due to forgot to bring in.Patient hasn't been wearing knee wraps because states last time she did the swelling in her LE increased. Did not bring. Advised putting on looser. Sequential Lymphedema Exercises Comments francisco LEs and trunk, UE's to facilitate lymphatic flow Compression Garment Assessment Compression Garment Assessment Details PT assist with donning Bioflect compression stockings Patient Education Self Manual Lymphatic Drainage reviewed Other Other application of Cetaphil lotion after MLD PT-OP-R Modalities Start: 11/24/23 08:48 Freq: Status: Active Protocol: Document 03/19/24 14:33 [facility] (Rec: 03/19/24 14:58 [facility] [id number]) Compression Pump Treatment Treatment Location francisco LEs Pressure Amount (mmHg) (mmHG) 45 Inflation Time (Seconds) 30 Deflation Time (Seconds) 5 Treatment Tolerance Good Treatment Comments during MLD opp LE PT-OP-T Assessment and Plan Start: 11/24/23 08:48 Freq: Status: Active Protocol: Document 05/09/24 13:01 [facility] (Rec: 05/09/24 13:32 [facility] [id number]) Physical Therapy Assessment Impairments Impairments Activity Tolerance,Edema,Gait, Soft Tissue Mobility Goals Two Impairment Lymphedema life impact scale score 34% Short Term Goal (STG) Decrease score to no greater than24% as measure of improved activity tolerance and quality of life 01/26/24: 30% 02/16/24: dec to 25% STG Duration 03/29/24 Senior Care Goal (LTG) Decrease lymphedema life impact scale score to no greater than 15% as measure of improved ability to self manage her lymphedema and improved quality of life LTG Duration 05/18/24 One Impairment lymphedema francisco LE's Short Term Goal (STG) Instruct and review all aspects of lymphedema care including skin care, manual lymphatic drainage and use of her lymphedema pump, compression, exercise, and elevation. 01/26/24: goal met STG Duration goal met Senior Care Goal (LTG) Patient to be able to self manage all aspects of her lymphedema including donning and doffing appropriate compression garments and use of sequential pneumatic pump 02/16/24: goal progress, still has challenged with donning Bioflect compression tights and is poorlycompliant to wearing velcro compression wraps on knees due to difficulty. LTG Duration 05/18/24 Three Impairment gait impairment Impairment uses FWW and doesn't ambulate significantly other than to come for medical appointments Chili Powder Mixer Goal (LTG) Patient able to ambulate for at least 10 minutes with least restrictive device 01/26/24: continues to use 4WW but limited activity tolerance due to cancer fatigue. 02/16/24: goal progress, and just this week has been able to resume Sci-Fit recumbant elliptical due to decreased weight of legs, improved activity tolerance. Can walk for 4 min max before requiring a rest. LTG Duration 02/22/24 Progress Towards Goals Progress Towards Goals Slow Progress due to Activity Tolerance,Slow Progress due to Medical Issues,Slow Progress - Other Progress Comments financial limitations unhoused status Assessment Summary Assessment Further decrease in circumferential measurements noted today, second treatment this week plus was assisted in donning Bioflect and wore overnight Tuesday and wore yesterday. Physical Therapy Plan Frequency and Duration Frequency of Treatment 20 visits Duration of treatment (weeks) 12 Plan of Care Start Date 02/16/24 Plan of Care End Date 05/18/24 Therapeutic Interventions Therapeutic Interventions Gait Training,Home Exercise Program,Lymphedema Management, Manual Therapy,Patient/ Caregiver Education,Self-Care/ Home Management,Soft Tissue Mobilization,Therapeutic Activities Modalities Vasopneumatic Devices Next Visit Focus/Plan Next Note Type Treatment Note Next Visit Plan Continue CDT.
--- NOTE | 2024-05-09 16:30 | PT.OTN ---
Current Diagnoses Lymphedema, not elsewhere classified (05/09/24) Physical Therapy Treatment Note PT-OP-A Visit Information Start: 11/24/23 08:48 Freq: Status: Active Protocol: Document 05/09/24 13:01 [facility]AK (Rec: 05/09/24 13:32 [facility] [id number]) Out-Patient Physical Therapy Visit Information Visit Information Visit Type Treatment Note Visit Start Time 13:00 Visit Stop Time 14:30 Visit Number 24 Evaluation Information Evaluation Date 11/24/23 Precautions Precautions cervical CA PT-OP-B Current Condition Start: 11/24/23 08:48 Freq: Status: Active Protocol: Document 05/09/24 13:01 [facility]AK (Rec: 05/09/24 13:32 [facility] [id number]) Current Condition History of Current Condition Onset Date 2+ years Current Complaints lymphedema bilateral LE's History of Current Condition Patient has long history of lymphedema francisco LE's, previously seen in this clinic . Discharged from PT after wounds healed, fit for bilateral velcro compression wraps. Patient has now developed multiple new wounds and her lymphedema has worsened. Contributing factors are treatment for pelvic cancer, currently receiving chemotherapy treatments, as well as homelessness and difficulty performing self management program, plus obesity. States she cant bend to put on velcro wraps, has been wearing compression tights: Bioflect. Prior Treatments and Tests prior wound care and lymphedema management PT-OP-C Subjective Start: 11/24/23 08:48 Freq: Status: Active Protocol: Document 05/07/24 13:03 [facility]AK (Rec: 05/07/24 13:38 [facility] [id number]) OP-PT Subjective Patient Comments Patient Comments Wore Bioflect yesterday andhad put on after wound care, wounds healing slowly. Having iron infusion tomorrow for 2 1/2 hours. PT-OP-F Manual Assessment Start: 11/24/23 08:48 Freq: Status: Active Protocol: Document 11/24/23 09:30 [facility]AK (Rec: 11/24/23 16:01 [facility] [id number]) Manual Assessments Soft Tissue Assessment Soft Tissue Mobility Assessment hyperkeratosis and fibrosis bilateral lower legs PT-OP-G Mobility & Gait Start: 11/24/23 08:48 Freq: Status: Active Protocol: Document 11/24/23 09:30 [facility]AK (Rec: 11/24/23 16:01 [facility] [id number]) OP Gait Assessment Gait Gait Assistance Required: Independent Assistive Devices Assistive Device Front Wheeled Walker Gait Deviations General Gait Pattern Antalgic,Decreased Stride Length,Decreased Feet Clearance Factors Limiting Gait Function Factors Limiting Gait Function Decreased Activity Tolerance, Decreased Strength PT-OP-K Range of Motion Start: 11/24/23 08:48 Freq: Status: Active Protocol: Document 11/24/23 09:30 [facility] (Rec: 11/24/23 16:01 [facility] [id number]) Hip Goniometric Range of Motion Hip francisco Hip ROM WFL No Comments mod decrease Hip ROM Limitations Hip ROM Limitations Soft Tissue Tightness,Muscle Weakness Knee Goniometric Range of Motion Knee francisco Knee ROM WFL No Comments flexion limited by tissue approximation Ankle and Foot Goniometric Range of Motion Ankle and Foot francisco Ankle/Foot ROM WFL Yes PT-OP-L Special Tests Start: 11/24/23 08:48 Freq: Status: Active Protocol: Document 11/24/23 09:30 [facility] (Rec: 11/24/23 16:02 [facility] [id number]) Special Tests Other Special Tests Special Tests Stemmer sign positive bilaterally PT-OP-M Strength Start: 11/24/23 08:48 Freq: Status: Active Protocol: Document 11/24/23 09:30 [facility] (Rec: 11/24/23 16:03 [facility] [id number]) Hip Strength Hip Manual Muscle Testing francisco Comments limited to less than 3/5 francisco, impacted by both muscle weakness and weight of legs with lymphedema Knee Strength Knee Manual Muscle Testing francisco Flexion (S2) 3+ Fair+ Extension (L3) 3+ Fair+ Ankle/Foot Strength Ankle and Foot Manual Muscle Testing francisco Dorsiflexion (L4) 4- Good- Plantarflexion (S1) 4- Good- PT-OP-N Lymphedema Start: 11/24/23 08:48 Freq: Status: Active Protocol: Document 05/09/24 13:01 [facility] (Rec: 05/09/24 13:32 [facility] [id number]) Lymphedema Measurements Lower Extremity Circumference Measurements Left Affected MT Heads 24.8 cm Mid-foot 24.5 cm Medial Malleolus 34.5 cm 10 cm From Medial Malleolus 49.8 cm 20 cm From Medial Malleolus 57.8 cm 30 cm From Medial Malleolus 70.3 cm 40 cm From Medial Malleolus 76 cm 50 cm From Medial Malleolus 75.8 cm 60 cm From Medial Malleolus 78.8 cm Knee Joint 76.4 cm right affected MT Heads 25.5 cm Mid-foot 24.3 cm Medial Malleolus 33.4 cm 10 cm From Medial Malleolus 54.3 cm 20 cm From Medial Malleolus 59.9 cm 30 cm From Medial Malleolus 75.7 cm 40 cm From Medial Malleolus 79.7 cm 50 cm From Medial Malleolus 78.8 cm 60 cm From Medial Malleolus 74.7 cm Knee Joint 79.7 cm PT-OP-Q Treatments Start: 11/24/23 08:48 Freq: Status: Active Protocol: Document 05/09/24 13:01 [facility] (Rec: 05/09/24 13:32 [facility] [id number]) Therapeutic Activity Therapeutic Activity transfer sit to supine Comments min assist for right LE onto and off treatment table, donning/doffing pants Reps/Minutes 6 Comments min assist Lymphedema Treatment Manual Lymphatic Drainage Location francisco LE's Duration 40 Comments Sequential pneumatic pump to each leg 20 min during MLD opposite side. Lymphedema Wrapping Materials Francisco LE's with Coban Lite system toes to knees, black foam anterior ankle crease. Cast padding proximal lower leg to decrease blistering. No Bioflect due to forgot to bring in.Patient hasn't been wearing knee wraps because states last time she did the swelling in her LE increased. Did not bring. Advised putting on looser. Sequential Lymphedema Exercises Comments francisco LEs and trunk, UE's to facilitate lymphatic flow Compression Garment Assessment Compression Garment Assessment Details PT assist with donning Bioflect compression stockings Patient Education Self Manual Lymphatic Drainage reviewed Other Other application of Cetaphil lotion after MLD PT-OP-R Modalities Start: 11/24/23 08:48 Freq: Status: Active Protocol: Document 03/19/24 14:33 [facility] (Rec: 03/19/24 14:58 [facility] [id number]) Compression Pump Treatment Treatment Location francisco LEs Pressure Amount (mmHg) (mmHG) 45 Inflation Time (Seconds) 30 Deflation Time (Seconds) 5 Treatment Tolerance Good Treatment Comments during MLD opp LE PT-OP-T Assessment and Plan Start: 11/24/23 08:48 Freq: Status: Active Protocol: Document 05/09/24 13:01 [facility] (Rec: 05/09/24 13:32 [facility] [id number]) Physical Therapy Assessment Impairments Impairments Activity Tolerance,Edema,Gait, Soft Tissue Mobility Goals Two Impairment Lymphedema life impact scale score 34% Short Term Goal (STG) Decrease score to no greater than24% as measure of improved activity tolerance and quality of life 01/26/24: 30% 02/16/24: dec to 25% STG Duration 03/29/24 [facility] Goal (LTG) Decrease lymphedema life impact scale score to no greater than 15% as measure of improved ability to self manage her lymphedema and improved quality of life LTG Duration 05/18/24 One Impairment lymphedema francisco LE's Short Term Goal (STG) Instruct and review all aspects of lymphedema care including skin care, manual lymphatic drainage and use of her lymphedema pump, compression, exercise, and elevation. 01/26/24: goal met STG Duration goal met [facility] Goal (LTG) Patient to be able to self manage all aspects of her lymphedema including donning and doffing appropriate compression garments and use of sequential pneumatic pump 02/16/24: goal progress, still has challenged with donning Bioflect compression tights and is poorlycompliant to wearing velcro compression wraps on knees due to difficulty. 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 02/16/24: goal progress, and just this week has been able to resume Sci-Fit recumbant elliptical due to decreased weight of legs, improved activity tolerance. Can walk for 4 min max before requiring a rest. LTG Duration 02/22/24 Progress Towards Goals Progress Towards Goals Slow Progress due to Activity Tolerance,Slow Progress due to Medical Issues,Slow Progress - Other Progress Comments financial limitations unhoused status Assessment Summary Assessment Further decrease in circumferential measurements noted today, second treatment this week plus was assisted in donning Bioflect and wore overnight Tuesday and wore yesterday. Physical Therapy Plan Frequency and Duration Frequency of Treatment 20 visits Duration of treatment (weeks) 12 Plan of Care Start Date 02/16/24 Plan of Care End Date 05/18/24 Therapeutic Interventions Therapeutic Interventions Gait Training,Home Exercise Program,Lymphedema Management, Manual Therapy,Patient/ Caregiver Education,Self-Care/ Home Management,Soft Tissue Mobilization,Therapeutic Activities Modalities Vasopneumatic Devices Next Visit Focus/Plan Next Note Type Treatment Note Next Visit Plan Continue CDT.
--- NOTE | 2024-05-13 16:16 | PT.OTN ---
Current Diagnoses Lymphedema, not elsewhere classified (05/09/24) Physical Therapy Treatment Note PT-OP-A Visit Information Start: 11/24/23 08:48 Freq: Status: Active Protocol: Document 05/09/24 13:01 [facility]AK (Rec: 05/09/24 13:32 [facility] [id number]) Out-Patient Physical Therapy Visit Information Visit Information Visit Type Treatment Note Visit Start Time 13:00 Visit Stop Time 14:30 Visit Number 24 Evaluation Information Evaluation Date 11/24/23 Precautions Precautions cervical CA PT-OP-B Current Condition Start: 11/24/23 08:48 Freq: Status: Active Protocol: Document 05/09/24 13:01 SAK (Rec: 05/09/24 13:32 [facility] [id number]) Current Condition History of Current Condition Onset Date 2+ years Current Complaints lymphedema bilateral LE's History of Current Condition Patient has long history of lymphedema francisco LE's, previously seen in this clinic . Discharged from PT after wounds healed, fit for bilateral velcro compression wraps. Patient has now developed multiple new wounds and her lymphedema has worsened. Contributing factors are treatment for pelvic cancer, currently receiving chemotherapy treatments, as well as homelessness and difficulty performing self management program, plus obesity. States she cant bend to put on velcro wraps, has been wearing compression tights: Bioflect. Prior Treatments and Tests prior wound care and lymphedema management PT-OP-C Subjective Start: 11/24/23 08:48 Freq: Status: Active Protocol: Document 05/07/24 13:03 SAK (Rec: 05/07/24 13:38 [facility] [id number]) OP-PT Subjective Patient Comments Patient Comments Wore Bioflect yesterday andhad put on after wound care, wounds healing slowly. Having iron infusion tomorrow for 2 1/2 hours. PT-OP-F Manual Assessment Start: 11/24/23 08:48 Freq: Status: Active Protocol: Document 11/24/23 09:30 [facility]AK (Rec: 11/24/23 16:01 [facility]AK [id number]) Manual Assessments Soft Tissue Assessment Soft Tissue Mobility Assessment hyperkeratosis and fibrosis bilateral lower legs PT-OP-G Mobility & Gait Start: 11/24/23 08:48 Freq: Status: Active Protocol: Document 11/24/23 09:30 [facility] (Rec: 11/24/23 16:01 [facility] [id number]) OP Gait Assessment Gait Gait Assistance Required: Independent Assistive Devices Assistive Device Front Wheeled Walker Gait Deviations General Gait Pattern Antalgic,Decreased Stride Length,Decreased Feet Clearance Factors Limiting Gait Function Factors Limiting Gait Function Decreased Activity Tolerance, Decreased Strength PT-OP-K Range of Motion Start: 11/24/23 08:48 Freq: Status: Active Protocol: Document 11/24/23 09:30 [facility] (Rec: 11/24/23 16:01 [facility] [id number]) Hip Goniometric Range of Motion Hip francisco Hip ROM WFL No Comments mod decrease Hip ROM Limitations Hip ROM Limitations Soft Tissue Tightness,Muscle Weakness Knee Goniometric Range of Motion Knee francisco Knee ROM WFL No Comments flexion limited by tissue approximation Ankle and Foot Goniometric Range of Motion Ankle and Foot francisco Ankle/Foot ROM WFL Yes PT-OP-L Special Tests Start: 11/24/23 08:48 Freq: Status: Active Protocol: Document 11/24/23 09:30 [facility] (Rec: 11/24/23 16:02 [facility] [id number]) Special Tests Other Special Tests Special Tests Stemmer sign positive bilaterally PT-OP-M Strength Start: 11/24/23 08:48 Freq: Status: Active Protocol: Document 11/24/23 09:30 [facility] (Rec: 11/24/23 16:03 [facility] [id number]) Hip Strength Hip Manual Muscle Testing francisco Comments limited to less than 3/5 francisco, impacted by both muscle weakness and weight of legs with lymphedema Knee Strength Knee Manual Muscle Testing francisco Flexion (S2) 3+ Fair+ Extension (L3) 3+ Fair+ Ankle/Foot Strength Ankle and Foot Manual Muscle Testing francisco Dorsiflexion (L4) 4- Good- Plantarflexion (S1) 4- Good- PT-OP-N Lymphedema Start: 11/24/23 08:48 Freq: Status: Active Protocol: Document 05/09/24 13:01 [facility] (Rec: 05/09/24 13:32 [facility] [id number]) Lymphedema Measurements Lower Extremity Circumference Measurements Left Affected MT Heads 24.8 cm Mid-foot 24.5 cm Medial Malleolus 34.5 cm 10 cm From Medial Malleolus 49.8 cm 20 cm From Medial Malleolus 57.8 cm 30 cm From Medial Malleolus 70.3 cm 40 cm From Medial Malleolus 76 cm 50 cm From Medial Malleolus 75.8 cm 60 cm From Medial Malleolus 78.8 cm Knee Joint 76.4 cm right affected MT Heads 25.5 cm Mid-foot 24.3 cm Medial Malleolus 33.4 cm 10 cm From Medial Malleolus 54.3 cm 20 cm From Medial Malleolus 59.9 cm 30 cm From Medial Malleolus 75.7 cm 40 cm From Medial Malleolus 79.7 cm 50 cm From Medial Malleolus 78.8 cm 60 cm From Medial Malleolus 74.7 cm Knee Joint 79.7 cm PT-OP-Q Treatments Start: 11/24/23 08:48 Freq: Status: Active Protocol: Document 05/09/24 13:01 [facility] (Rec: 05/09/24 13:32 [facility] [id number]) Therapeutic Activity Therapeutic Activity transfer sit to supine Comments min assist for right LE onto and off treatment table, donning/doffing pants Reps/Minutes 6 Comments min assist Lymphedema Treatment Manual Lymphatic Drainage Location francisco LE's Duration 40 Comments Sequential pneumatic pump to each leg 20 min during MLD opposite side. Lymphedema Wrapping Materials Francisco LE's with Coban Lite system toes to knees, black foam anterior ankle crease. Cast padding proximal lower leg to decrease blistering. No Bioflect due to forgot to bring in.Patient hasn't been wearing knee wraps because states last time she did the swelling in her LE increased. Did not bring. Advised putting on looser. Sequential Lymphedema Exercises Comments francisco LEs and trunk, UE's to facilitate lymphatic flow Compression Garment Assessment Compression Garment Assessment Details PT assist with donning Bioflect compression stockings Patient Education Self Manual Lymphatic Drainage reviewed Other Other application of Cetaphil lotion after MLD PT-OP-R Modalities Start: 11/24/23 08:48 Freq: Status: Active Protocol: Document 03/19/24 14:33 [facility] (Rec: 03/19/24 14:58 [facility] [id number]) Compression Pump Treatment Treatment Location francisco LEs Pressure Amount (mmHg) (mmHG) 45 Inflation Time (Seconds) 30 Deflation Time (Seconds) 5 Treatment Tolerance Good Treatment Comments during MLD opp LE PT-OP-T Assessment and Plan Start: 11/24/23 08:48 Freq: Status: Active Protocol: Document 05/09/24 13:01 [facility] (Rec: 05/09/24 13:32 [facility] [id number]) Physical Therapy Assessment Impairments Impairments Activity Tolerance,Edema,Gait, Soft Tissue Mobility Goals Two Impairment Lymphedema life impact scale score 34% Short Term Goal (STG) Decrease score to no greater than24% as measure of improved activity tolerance and quality of life 01/26/24: 30% 02/16/24: dec to 25% STG Duration 03/29/24 [facility] Home Goal (LTG) Decrease lymphedema life impact scale score to no greater than 15% as measure of improved ability to self manage her lymphedema and improved quality of life LTG Duration 05/18/24 One Impairment lymphedema francisco LE's Short Term Goal (STG) Instruct and review all aspects of lymphedema care including skin care, manual lymphatic drainage and use of her lymphedema pump, compression, exercise, and elevation. 01/26/24: goal met STG Duration goal met [facility] Home Goal (LTG) Patient to be able to self manage all aspects of her lymphedema including donning and doffing appropriate compression garments and use of sequential pneumatic pump 02/16/24: goal progress, still has challenged with donning Bioflect compression tights and is poorlycompliant to wearing velcro compression wraps on knees due to difficulty. 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 02/16/24: goal progress, and just this week has been able to resume Sci-Fit recumbant elliptical due to decreased weight of legs, improved activity tolerance. Can walk for 4 min max before requiring a rest. LTG Duration 02/22/24 Progress Towards Goals Progress Towards Goals Slow Progress due to Activity Tolerance,Slow Progress due to Medical Issues,Slow Progress - Other Progress Comments financial limitations unhoused status Assessment Summary Assessment Further decrease in circumferential measurements noted today, second treatment this week plus was assisted in donning Bioflect and wore overnight Tuesday and wore yesterday. Physical Therapy Plan Frequency and Duration Frequency of Treatment 20 visits Duration of treatment (weeks) 12 Plan of Care Start Date 02/16/24 Plan of Care End Date 05/18/24 Therapeutic Interventions Therapeutic Interventions Gait Training,Home Exercise Program,Lymphedema Management, Manual Therapy,Patient/ Caregiver Education,Self-Care/ Home Management,Soft Tissue Mobilization,Therapeutic Activities Modalities Vasopneumatic Devices Next Visit Focus/Plan Next Note Type Treatment Note Next Visit Plan Continue CDT.
--- NOTE | 2024-05-23 15:37 | PT.OTRE ---
Current Diagnoses Lymphedema, not elsewhere classified (05/23/24) Visit Care Team Role Provider Type Geovani Elder DO Family Provider Non-Staff Primary Care Provider Specialty: Medical Address: [address] [place] [address] [address], [place], [address] Email: Nicolás Schrader MD Attending Provider Physician Referring Provider Specialty: Wound Care Address: [address] [place] [address], [address] Email: [email or web address] [facility] Re-Evaluation PT-OP-A Visit Information Start: 11/24/23 08:48 Freq: Status: Active Protocol: Document 05/23/24 14:25 [facility] (Rec: 05/23/24 15:06 [facility] [id number]) Out-Patient Physical Therapy Visit Information Visit Information Visit Type Treatment Note Visit Start Time 14:26 Visit Stop Time 16:00 Visit Number 25 Evaluation Information Evaluation Date 11/24/23 Precautions Precautions cervical CA PT-OP-B Current Condition Start: 11/24/23 08:48 Freq: Status: Active Protocol: Document 05/23/24 14:25 [facility] (Rec: 05/23/24 15:06 [facility] [id number]) Current Condition History of Current Condition Onset Date 2+ years Current Complaints lymphedema bilateral LE's History of Current Condition Patient has long history of lymphedema francisco LE's, previously seen in this clinic . Discharged from PT after wounds healed, fit for bilateral velcro compression wraps. Patient has now developed multiple new wounds and her lymphedema has worsened. Contributing factors are treatment for pelvic cancer, currently receiving chemotherapy treatments, as well as homelessness and difficulty performing self management program, plus obesity. States she cant bend to put on velcro wraps, has been wearing compression tights: Bioflect. Prior Treatments and Tests prior wound care and lymphedema management PT-OP-C Subjective Start: 11/24/23 08:48 Freq: Status: Active Protocol: Document 05/07/24 13:03 [facility] (Rec: 05/07/24 13:38 [facility] [id number]) OP-PT Subjective Patient Comments Patient Comments Wore Bioflect yesterday andhad put on after wound care, wounds healing slowly. Having iron infusion tomorrow for 2 1/2 hours. PT-OP-F Manual Assessment Start: 11/24/23 08:48 Freq: Status: Active Protocol: Document 11/24/23 09:30 [facility] (Rec: 11/24/23 16:01 [facility] [id number]) Manual Assessments Soft Tissue Assessment Soft Tissue Mobility Assessment hyperkeratosis and fibrosis bilateral lower legs PT-OP-G Mobility & Gait Start: 11/24/23 08:48 Freq: Status: Active Protocol: Document 11/24/23 09:30 [facility] (Rec: 11/24/23 16:01 [facility] [id number]) OP Gait Assessment Gait Gait Assistance Required: Independent Assistive Devices Assistive Device Front Wheeled Walker Gait Deviations General Gait Pattern Antalgic,Decreased Stride Length,Decreased Feet Clearance Factors Limiting Gait Function Factors Limiting Gait Function Decreased Activity Tolerance, Decreased Strength PT-OP-K Range of Motion Start: 11/24/23 08:48 Freq: Status: Active Protocol: Document 11/24/23 09:30 [facility] (Rec: 11/24/23 16:01 [facility] [id number]) Hip Goniometric Range of Motion Hip Measured in Degrees francisco Hip ROM WFL No Comments mod decrease Hip ROM Limitations Hip ROM Limitations Soft Tissue Tightness,Muscle Weakness Knee Goniometric Range of Motion Knee Measured in Degrees francisco Knee ROM WFL No Comments flexion limited by tissue approximation Ankle and Foot Goniometric Range of Motion Ankle and Foot Measured in Degrees francisco Ankle/Foot ROM WFL Yes PT-OP-L Special Tests Start: 11/24/23 08:48 Freq: Status: Active Protocol: Document 11/24/23 09:30 [facility] (Rec: 11/24/23 16:02 [facility] [id number]) Special Tests Other Special Tests Special Tests Stemmer sign positive bilaterally PT-OP-M Strength Start: 11/24/23 08:48 Freq: Status: Active Protocol: Document 11/24/23 09:30 [facility] (Rec: 11/24/23 16:03 [facility] [id number]) Hip Strength Hip Manual Muscle Testing francisco Comments limited to less than 3/5 francisco, impacted by both muscle weakness and weight of legs with lymphedema Knee Strength Knee Manual Muscle Testing francisco Flexion (S2) 3+ Fair+ Extension (L3) 3+ Fair+ Ankle/Foot Strength Ankle and Foot Manual Muscle Testing francisco Dorsiflexion (L4) 4- Good- Plantarflexion (S1) 4- Good- PT-OP-N Lymphedema Start: 11/24/23 08:48 Freq: Status: Active Protocol: Document 05/23/24 14:25 [facility] (Rec: 05/23/24 15:06 [facility] [id number]) Lymphedema Measurements Lower Extremity Circumference Measurements Left Affected - over bandges 10, 20, 30 cm right affected MT Heads 25.6 cm Mid-foot 24.6 cm Medial Malleolus 34.7 cm 10 cm From Medial Malleolus 53.3 cm 20 cm From Medial Malleolus 63.8 cm 30 cm From Medial Malleolus 74.5 cm 40 cm From Medial Malleolus 74.5 cm 50 cm From Medial Malleolus 71.7 cm 60 cm From Medial Malleolus 74 cm Knee Joint 74.5 cm PT-OP-Q Treatments Start: 11/24/23 08:48 Freq: Status: Active Protocol: Document 05/23/24 14:25 [facility] (Rec: 05/23/24 15:06 [facility] [id number]) Lymphedema Treatment Manual Lymphatic Drainage Location francisco LE's Duration 40 Comments Sequential pneumatic pump to each leg 20 min during MLD opposite side. Lymphedema Wrapping Materials Francisco LE's with Coban Lite system toes to knees, black foam anterior ankle crease. Cast padding proximal lower leg to decrease blistering. No Bioflect due to forgot to bring in.Patient hasn't been wearing knee wraps because states last time she did the swelling in her LE increased. Did not bring. Advised putting on looser. Sequential Lymphedema Exercises Comments francisco LEs and trunk, UE's to facilitate lymphatic flow Compression Garment Assessment Compression Garment Assessment Details PT assist with donning Bioflect compression stockings Other Other application of Cetaphil lotion after MLD PT-OP-R Modalities Start: 11/24/23 08:48 Freq: Status: Active Protocol: Document 05/23/24 14:26 [facility] (Rec: 05/23/24 15:36 [facility] [id number]) Compression Pump Treatment Treatment Location francisco LEs Pressure Amount (mmHg) (mmHG) 45 Inflation Time (Seconds) 30 Deflation Time (Seconds) 5 Treatment Tolerance Good Treatment Comments during MLD opp LE PT-OP-T Assessment and Plan Start: 11/24/23 08:48 Freq: Status: Active Protocol: Document 05/23/24 14:25 [facility] (Rec: 05/23/24 15:06 [facility] [id number]) Physical Therapy Assessment Impairments Impairments Activity Tolerance,Edema,Gait, Soft Tissue Mobility Goals Two Impairment Lymphedema life impact scale score 34% Short Term Goal (STG) Decrease score to no greater than24% as measure of improved activity tolerance and quality of life 01/26/24: 30% 02/16/24: dec to 25% 05/22/24: score 23% STG Duration 06/29/24 Usp Goal (LTG) Decrease lymphedema life impact scale score to no greater than 15% as measure of improved ability to self manage her lymphedema and improved quality of life LTG Duration 08/17/24 One Impairment lymphedema francisco LE's Short Term Goal (STG) Instruct and review all aspects of lymphedema care including skin care, manual lymphatic drainage and use of her lymphedema pump, compression, exercise, and elevation. 01/26/24: goal met STG Duration goal met Professor [employer] Goal (LTG) Patient to be able to self manage all aspects of her lymphedema including donning and doffing appropriate compression garments and use of sequential pneumatic pump 02/16/24: goal progress, still has challenged with donning Bioflect compression tights and is poorlycompliant to wearing velcro compression wraps on knees due to difficulty. 05/18/24: Did not bring wraps today, unable to don independently. Has worn Bioflect a few times since last seen but is exhausted by donning. Has been in hotel 1x since last seen and was then able to use pump. Is on list for affordable housing but hasn't heard anything; living in car which makes management of lymphedema very challenging . LTG Duration 08/17/24 Three Impairment gait impairment Impairment uses FWW and doesn't ambulate significantly other than to come for medical appointments Usp Goal (LTG) Patient able to ambulate for at least 10 minutes with least restrictive device 01/26/24: continues to use 4WW but limited activity tolerance due to cancer fatigue. 02/16/24: goal progress, and just this week has been able to resume Sci-Fit recumbant elliptical due to decreased weight of legs, improved activity tolerance. Can walk for 4 min max before requiring a rest. 05/18/24: tries to take a walk at least couple times per day LTG Duration 08/17/24 Progress Towards Goals Progress Towards Goals Slow Progress due to Activity Tolerance,Slow Progress due to Medical Issues,Slow Progress - Other Progress Comments financial limitations unhoused status Assessment Summary Assessment Patient circumferential measurements variable. Hs not been able to come to PT since 05/09 due to appointment availability. Needs skilled PT at this time due to unable to fully comply with self care for lymphedema, continues to try to get wounds to heal with assist of wound care as well. Unhoused status contributes highly to challenges with lymphedema, only able to stay in hotel occasionally which is when she can use her lymphedema pump. Patient has both lipedema and lymphedema, is on chemo and is hopeful to have surgery for her cancer when approved by surgeon. Her health status is very fragile and she needs PT assist for lymphedema care at this time. Physical Therapy Plan Frequency and Duration Frequency of Treatment 20 visits Duration of treatment (weeks) 12 Plan of Care Start Date 05/18/24 Plan of Care End Date 08/17/24 Therapeutic Interventions Therapeutic Interventions Gait Training,Home Exercise Program,Lymphedema Management, Manual Therapy,Patient/ Caregiver Education,Self-Care/ Home Management,Soft Tissue Mobilization,Therapeutic Activities Modalities Vasopneumatic Devices Next Visit Focus/Plan Next Note Type Treatment Note Next Visit Plan Continue Complete decongestive therapy
--- NOTE | 2024-05-23 15:37 | PT.OPPOC ---
Physical, Occupational & Speech Therapy At [facility] Current Diagnoses Lymphedema, not elsewhere classified (05/23/24) Visit Care Team Role Provider Type Geovani Elder DO Family Provider Non-Staff Primary Care Provider Specialty: Medical Address: [address] [place] [address] [address]. [address], [place], [address] Email: Nicolás Schrader MD Attending Provider Physician Referring Provider Specialty: Wound Care Address: [address] [place] [address], [id number] Email: [email or web address] Plan Of Care PT-OP-B Current Condition Start: 11/24/23 08:48 Freq: Status: Active Protocol: Document 05/23/24 14:25 [facility] (Rec: 05/23/24 15:06 [facility] [id number]) Current Condition History of Current Condition Onset Date 2+ years Current Complaints lymphedema bilateral LE's History of Current Condition Patient has long history of lymphedema stella LE's, previously seen in this clinic . Discharged from PT after wounds healed, fit for bilateral velcro compression wraps. Patient has now developed multiple new wounds and her lymphedema has worsened. Contributing factors are treatment for pelvic cancer, currently receiving chemotherapy treatments, as well as homelessness and difficulty performing self management program, plus obesity. States she cant bend to put on velcro wraps, has been wearing compression tights: Bioflect. Prior Treatments and Tests prior wound care and lymphedema management PT-OP-T Assessment and Plan Start: 11/24/23 08:48 Freq: Status: Active Protocol: Document 05/23/24 14:25 [facility] (Rec: 05/23/24 15:06 [facility] [id number]) Physical Therapy Assessment Impairments Impairments Activity Tolerance,Edema,Gait, Soft Tissue Mobility Goals Two Impairment Lymphedema life impact scale score 34% Short Term Goal (STG) Decrease score to no greater than24% as measure of improved activity tolerance and quality of life 01/26/24: 30% 02/16/24: dec to 25% 05/22/24: score 23% STG Duration 06/29/24 [facility]dc Goal (LTG) Decrease lymphedema life impact scale score to no greater than 15% as measure of improved ability to self manage her lymphedema and improved quality of life LTG Duration 08/17/24 One Impairment lymphedema stella RENE's Short Term Goal (STG) Instruct and review all aspects of lymphedema care including skin care, manual lymphatic drainage and use of her lymphedema pump, compression, exercise, and elevation. 01/26/24: goal met STG Duration goal met [employer] Slide Machine Setter Goal (LTG) Patient to be able to self manage all aspects of her lymphedema including donning and doffing appropriate compression garments and use of sequential pneumatic pump 02/16/24: goal progress, still has challenged with donning Bioflect compression tights and is poorlycompliant to wearing velcro compression wraps on knees due to difficulty. 05/18/24: Did not bring wraps today, unable to don independently. Has worn Bioflect a few times since last seen but is exhausted by donning. Has been in hotel 1x since last seen and was then able to use pump. Is on list for affordable housing but hasn't heard anything; living in car which makes management of lymphedema very challenging . LTG Duration 08/17/24 Three Impairment gait impairment Impairment uses FWW and doesn't ambulate significantly other than to come for medical appointments Four Slide Machine Setter Goal (LTG) Patient able to ambulate for at least 10 minutes with least restrictive device 01/26/24: continues to use 4WW but limited activity tolerance due to cancer fatigue. 02/16/24: goal progress, and just this week has been able to resume Sci-Fit recumbant elliptical due to decreased weight of legs, improved activity tolerance. Can walk for 4 min max before requiring a rest. 05/18/24: tries to take a walk at least couple times per day LTG Duration 08/17/24 Progress Towards Goals Progress Towards Goals Slow Progress due to Activity Tolerance,Slow Progress due to Medical Issues,Slow Progress - Other Progress Comments financial limitations unhoused status Assessment Summary Assessment Patient circumferential measurements variable. Hs not been able to come to PT since 05/09 due to appointment availability. Needs skilled PT at this time due to unable to fully comply with self care for lymphedema, continues to try to get wounds to heal with assist of wound care as well. Unhoused status contributes highly to challenges with lymphedema, only able to stay in hotel occasionally which is when she can use her lymphedema pump. Patient has both lipedema and lymphedema, is on chemo and is hopeful to have surgery for her cancer when approved by surgeon. Her health status is very fragile and she needs PT assist for lymphedema care at this time. Physical Therapy Plan Frequency and Duration Frequency of Treatment 20 visits Duration of treatment (weeks) 12 Plan of Care Start Date 05/18/24 Plan of Care End Date 08/17/24 Therapeutic Interventions Therapeutic Interventions Gait Training,Home Exercise Program,Lymphedema Management, Manual Therapy,Patient/ Caregiver Education,Self-Care/ Home Management,Soft Tissue Mobilization,Therapeutic Activities Modalities Vasopneumatic Devices Next Visit Focus/Plan Next Note Type Treatment Note Next Visit Plan Continue Complete decongestive therapy Plan of Care Dates Plan of Care Start Date 05/18/24 Plan of Care End Date 08/17/24 Electronically Signed by: Lizeth Howard, PT 05/23/24 [id number] If you are in agreement with this Plan of Care, please return a signed and dated copy. I have reviewed this Plan of Care and certify that the skilled therapy services above are required to meet the patient?s needs. Physician Signature Date Printed Name and Credentials Clinical Instructor Signature Printed Name and Credentials
--- NOTE | 2024-05-30 12:23 | PT.OTN ---
Current Diagnoses Lymphedema, not elsewhere classified (05/30/24) Physical Therapy Treatment Note PT-OP-A Visit Information Start: 11/24/23 08:48 Freq: Status: Active Protocol: Document 05/30/24 10:44 SAK (Rec: 05/30/24 11:27 [facility] [id number]) Out-Patient Physical Therapy Visit Information Visit Information Visit Type Treatment Note Visit Start Time 10:52 Visit Stop Time 12:15 Visit Number 26 Evaluation Information Evaluation Date 11/24/23 Precautions Precautions cervical CA PT-OP-B Current Condition Start: 11/24/23 08:48 Freq: Status: Active Protocol: Document 05/30/24 10:44 SAK (Rec: 05/30/24 11:27 SAK [id number]) Current Condition History of Current Condition Onset Date 2+ years Current Complaints lymphedema bilateral LE's History of Current Condition Patient has long history of lymphedema francisco LE's, previously seen in this clinic . Discharged from PT after wounds healed, fit for bilateral velcro compression wraps. Patient has now developed multiple new wounds and her lymphedema has worsened. Contributing factors are treatment for pelvic cancer, currently receiving chemotherapy treatments, as well as homelessness and difficulty performing self management program, plus obesity. States she cant bend to put on velcro wraps, has been wearing compression tights: Bioflect. Prior Treatments and Tests prior wound care and lymphedema management PT-OP-C Subjective Start: 11/24/23 08:48 Freq: Status: Active Protocol: Document 05/30/24 10:44 SAK (Rec: 05/30/24 11:27 SAK [id number]) OP-PT Subjective Patient Comments Patient Comments Patient reports more bleeding issues. Went to wound care on Tuesday, reports seems to be healing. Taking oral cancer marker pills, Letrozole, one possible side effect is swelling. Hasn't used velcro wrap yet despite PT urging to have wound care put on. PT-OP-F Manual Assessment Start: 11/24/23 08:48 Freq: Status: Active Protocol: Document 11/24/23 09:30 SAK (Rec: 11/24/23 16:01 SAK [id number]) Manual Assessments Soft Tissue Assessment Soft Tissue Mobility Assessment hyperkeratosis and fibrosis bilateral lower legs PT-OP-G Mobility & Gait Start: 11/24/23 08:48 Freq: Status: Active Protocol: Document 11/24/23 09:30 SAK (Rec: 11/24/23 16:01 [facility] [id number]) OP Gait Assessment Gait Gait Assistance Required: Independent Assistive Devices Assistive Device Front Wheeled Walker Gait Deviations General Gait Pattern Antalgic,Decreased Stride Length,Decreased Feet Clearance Factors Limiting Gait Function Factors Limiting Gait Function Decreased Activity Tolerance, Decreased Strength PT-OP-K Range of Motion Start: 11/24/23 08:48 Freq: Status: Active Protocol: Document 11/24/23 09:30 SAK (Rec: 11/24/23 16:01 [facility] [id number]) Hip Goniometric Range of Motion Hip francisco Hip ROM WFL No Comments mod decrease Hip ROM Limitations Hip ROM Limitations Soft Tissue Tightness,Muscle Weakness Knee Goniometric Range of Motion Knee francisco Knee ROM WFL No Comments flexion limited by tissue approximation Ankle and Foot Goniometric Range of Motion Ankle and Foot francisco Ankle/Foot ROM WFL Yes PT-OP-L Special Tests Start: 11/24/23 08:48 Freq: Status: Active Protocol: Document 11/24/23 09:30 SAK (Rec: 11/24/23 16:02 [facility] [id number]) Special Tests Other Special Tests Special Tests Stemmer sign positive bilaterally PT-OP-M Strength Start: 11/24/23 08:48 Freq: Status: Active Protocol: Document 11/24/23 09:30 SAK (Rec: 11/24/23 16:03 [facility] [id number]) Hip Strength Hip Manual Muscle Testing francisco Comments limited to less than 3/5 francisco, impacted by both muscle weakness and weight of legs with lymphedema Knee Strength Knee Manual Muscle Testing francisco Flexion (S2) 3+ Fair+ Extension (L3) 3+ Fair+ Ankle/Foot Strength Ankle and Foot Manual Muscle Testing francisco Dorsiflexion (L4) 4- Good- Plantarflexion (S1) 4- Good- PT-OP-N Lymphedema Start: 11/24/23 08:48 Freq: Status: Active Protocol: Document 05/30/24 10:44 SAK (Rec: 05/30/24 11:27 SAK [id number]) Lymphedema Measurements Lower Extremity Circumference Measurements Left Affected MT Heads 24.7 cm Mid-foot 24.5 cm Medial Malleolus 33.8 cm 10 cm From Medial Malleolus 50.4 cm 20 cm From Medial Malleolus 56.9 cm 30 cm From Medial Malleolus 65.5 cm 40 cm From Medial Malleolus 66.4 cm 50 cm From Medial Malleolus 74.3 cm 60 cm From Medial Malleolus 72 cm Knee Joint 72.8 cm - over bandges 10, 20, 30 cm right affected MT Heads 26 cm Mid-foot 25.8 cm Medial Malleolus 35.4 cm 10 cm From Medial Malleolus 54 cm 20 cm From Medial Malleolus 61.4 cm 30 cm From Medial Malleolus 78.7 cm 40 cm From Medial Malleolus 79.3 cm 50 cm From Medial Malleolus 75.9 cm 60 cm From Medial Malleolus 73.7 cm Knee Joint 79.3 cm PT-OP-Q Treatments Start: 11/24/23 08:48 Freq: Status: Active Protocol: Document 05/30/24 10:44 [facility] (Rec: 05/30/24 11:27 [facility] [id number]) Therapeutic Activity Therapeutic Activity donning/doffing pants Reps/Minutes 6 Comments min assist Lymphedema Treatment Manual Lymphatic Drainage Location francisco LE's Duration 40 Comments Sequential pneumatic pump to each leg 20 min during MLD opposite side. Lymphedema Wrapping Materials Francisco LE's with Coban Lite system toes to knees, black foam anterior ankle crease. Cast padding proximal lower leg to decrease blistering. No Bioflect due to forgot to bring in.Patient hasn't been wearing knee wraps because states last time she did the swelling in her LE increased. Did not bring. Advised putting on looser. Sequential Lymphedema Exercises Comments francisco LEs and trunk, UE's to facilitate lymphatic flow Compression Garment Assessment Compression Garment Assessment Details PT assist donning bilateral velcro compression wraps Other Other application of Cetaphil lotion after MLD PT-OP-R Modalities Start: 11/24/23 08:48 Freq: Status: Active Protocol: Document 05/30/24 10:44 SAK (Rec: 05/30/24 12:19 [facility] [id number]) Compression Pump Treatment Treatment Location francisco LEs Pressure Amount (mmHg) (mmHG) 45 Inflation Time (Seconds) 30 Deflation Time (Seconds) 5 Treatment Tolerance Good Treatment Comments during MLD opp LE PT-OP-T Assessment and Plan Start: 11/24/23 08:48 Freq: Status: Active Protocol: Document 05/30/24 10:44 [facility] (Rec: 05/30/24 11:27 [facility] [id number]) Physical Therapy Assessment Impairments Impairments Activity Tolerance,Edema,Gait, Soft Tissue Mobility Goals Two Impairment Lymphedema life impact scale score 34% Short Term Goal (STG) Decrease score to no greater than24% as measure of improved activity tolerance and quality of life 01/26/24: 30% 02/16/24: dec to 25% 05/22/24: score 23% STG Duration 06/29/24 Credit Reference Clerk Goal (LTG) Decrease lymphedema life impact scale score to no greater than 15% as measure of improved ability to self manage her lymphedema and improved quality of life LTG Duration 08/17/24 One Impairment lymphedema francisco LE's Short Term Goal (STG) Instruct and review all aspects of lymphedema care including skin care, manual lymphatic drainage and use of her lymphedema pump, compression, exercise, and elevation. 01/26/24: goal met STG Duration goal met Long-Term Goal (LTG) Patient to be able to self manage all aspects of her lymphedema including donning and doffing appropriate compression garments and use of sequential pneumatic pump 02/16/24: goal progress, still has challenged with donning Bioflect compression tights and is poorlycompliant to wearing velcro compression wraps on knees due to difficulty. 05/18/24: Did not bring wraps today, unable to don independently. Has worn Bioflect a few times since last seen but is exhausted by donning. Has been in hotel 1x since last seen and was then able to use pump. Is on list for affordable housing but hasn't heard anything; living in car which makes management of lymphedema very challenging . LTG Duration 08/17/24 Three Impairment gait impairment Impairment uses FWW and doesn't ambulate significantly other than to come for medical appointments Credit Reference Clerk Goal (LTG) Patient able to ambulate for at least 10 minutes with least restrictive device 01/26/24: continues to use 4WW but limited activity tolerance due to cancer fatigue. 02/16/24: goal progress, and just this week has been able to resume Sci-Fit recumbant elliptical due to decreased weight of legs, improved activity tolerance. Can walk for 4 min max before requiring a rest. 9/20/24: tries to take a walk at least couple times per day LTG Duration 08/17/24 Progress Towards Goals Progress Towards Goals Slow Progress due to Activity Tolerance,Slow Progress due to Medical Issues,Slow Progress - Other Progress Comments financial limitations unhoused status Physical Therapy Plan Frequency and Duration Frequency of Treatment 20 visits Duration of treatment (weeks) 12 Plan of Care Start Date 05/18/24 Plan of Care End Date 08/17/24 Therapeutic Interventions Therapeutic Interventions Gait Training,Home Exercise Program,Lymphedema Management, Manual Therapy,Patient/ Caregiver Education,Self-Care/ Home Management,Soft Tissue Mobilization,Therapeutic Activities Modalities Vasopneumatic Devices Next Visit Focus/Plan Next Note Type Treatment Note Next Visit Plan Continue Complete decongestive therapy
--- NOTE | 2024-06-06 16:32 | PT.OTN ---
Current Diagnoses Lymphedema, not elsewhere classified (06/06/24) Physical Therapy Treatment Note PT-OP-A Visit Information Start: 11/24/23 08:48 Freq: Status: Active Protocol: Document 06/06/24 10:49 SAK (Rec: 06/06/24 11:30 SAK [id number]) Out-Patient Physical Therapy Visit Information Visit Information Visit Type Treatment Note Visit Start Time 10:48 Visit Stop Time 12:15 Visit Number 27 PT-OP-B Current Condition Start: 11/24/23 08:48 Freq: Status: Active Protocol: Document 06/06/24 10:49 SAK (Rec: 06/06/24 11:30 SAK [id number]) Current Condition History of Current Condition Onset Date 2+ years Current Complaints lymphedema bilateral LE's History of Current Condition Patient has long history of lymphedema francisco LE's, previously seen in this clinic . Discharged from PT after wounds healed, fit for bilateral velcro compression wraps. Patient has now developed multiple new wounds and her lymphedema has worsened. Contributing factors are treatment for pelvic cancer, currently receiving chemotherapy treatments, as well as homelessness and difficulty performing self management program, plus obesity. States she cant bend to put on velcro wraps, has been wearing compression tights: Bioflect. Prior Treatments and Tests prior wound care and lymphedema management PT-OP-C Subjective Start: 11/24/23 08:48 Freq: Status: Active Protocol: Document 06/06/24 10:49 SAK (Rec: 06/06/24 11:30 SAK [id number]) OP-PT Subjective Patient Comments Patient Comments States not having a good day, velcro wraps broke down the skin back of her knee had to get prescription Nystatin. Didn't bring velcro wraps due to having hard day, wore them for 3 days before removing. PT-OP-F Manual Assessment Start: 11/24/23 08:48 Freq: Status: Active Protocol: Document 11/24/23 09:30 SAK (Rec: 11/24/23 16:01 SAK [id number]) Manual Assessments Soft Tissue Assessment Soft Tissue Mobility Assessment hyperkeratosis and fibrosis bilateral lower legs PT-OP-G Mobility & Gait Start: 11/24/23 08:48 Freq: Status: Active Protocol: Document 11/24/23 09:30 SAK (Rec: 11/24/23 16:01 SAK [id number]) OP Gait Assessment Gait Gait Assistance Required: Independent Assistive Devices Assistive Device Front Wheeled Walker Gait Deviations General Gait Pattern Antalgic,Decreased Stride Length,Decreased Feet Clearance Factors Limiting Gait Function Factors Limiting Gait Function Decreased Activity Tolerance, Decreased Strength PT-OP-K Range of Motion Start: 11/24/23 08:48 Freq: Status: Active Protocol: Document 11/24/23 09:30 SAK (Rec: 11/24/23 16:01 [facility] [id number]) Hip Goniometric Range of Motion Hip francisco Hip ROM WFL No Comments mod decrease Hip ROM Limitations Hip ROM Limitations Soft Tissue Tightness,Muscle Weakness Knee Goniometric Range of Motion Knee francisco Knee ROM WFL No Comments flexion limited by tissue approximation Ankle and Foot Goniometric Range of Motion Ankle and Foot francisco Ankle/Foot ROM WFL Yes PT-OP-L Special Tests Start: 11/24/23 08:48 Freq: Status: Active Protocol: Document 11/24/23 09:30 SAK (Rec: 11/24/23 16:02 [facility] [id number]) Special Tests Other Special Tests Special Tests Stemmer sign positive bilaterally PT-OP-M Strength Start: 11/24/23 08:48 Freq: Status: Active Protocol: Document 11/24/23 09:30 SAK (Rec: 11/24/23 16:03 [facility] [id number]) Hip Strength Hip Manual Muscle Testing francisco Comments limited to less than 3/5 francisco, impacted by both muscle weakness and weight of legs with lymphedema Knee Strength Knee Manual Muscle Testing francisco Flexion (S2) 3+ Fair+ Extension (L3) 3+ Fair+ Ankle/Foot Strength Ankle and Foot Manual Muscle Testing francisco Dorsiflexion (L4) 4- Good- Plantarflexion (S1) 4- Good- PT-OP-N Lymphedema Start: 11/24/23 08:48 Freq: Status: Active Protocol: Document 06/06/24 10:49 SAK (Rec: 06/06/24 11:30 [facility] [id number]) Lymphedema Measurements Lower Extremity Circumference Measurements Left Affected MT Heads 25.3 cm Mid-foot 24.7 cm Medial Malleolus 33.2 cm 10 cm From Medial Malleolus 49.4 cm 20 cm From Medial Malleolus 58.5 cm 30 cm From Medial Malleolus 69.4 cm 40 cm From Medial Malleolus 77.5 cm 50 cm From Medial Malleolus 71 cm 60 cm From Medial Malleolus 75.4 cm Knee Joint 77.8 cm right affected MT Heads 25.2 cm Mid-foot 26 cm Medial Malleolus 35.7 cm 10 cm From Medial Malleolus 58.3 cm 20 cm From Medial Malleolus 66.7 cm 30 cm From Medial Malleolus 79.4 cm 40 cm From Medial Malleolus 77.8 cm 50 cm From Medial Malleolus 74.3 cm 60 cm From Medial Malleolus 73 cm Knee Joint 77.8 cm PT-OP-Q Treatments Start: 11/24/23 08:48 Freq: Status: Active Protocol: Document 06/06/24 10:49 KATIA (Rec: 06/06/24 16:29 SAK [id number]) Therapeutic Activity Therapeutic Activity donning/doffing pants Reps/Minutes 6 Comments min assist Lymphedema Treatment Manual Lymphatic Drainage Location francisco LE's Duration 40 Comments Sequential pneumatic pump to each leg 20 min during MLD opposite side. Lymphedema Wrapping Materials Francisco LE's with Coban Lite system toes to knees, black foam anterior ankle crease. Cast padding proximal lower leg to decrease blistering. No Bioflect due to forgot to bring in. Did not bring any of her other velcro wraps either, reminded to bring all garments next session for further disussion. Sequential Lymphedema Exercises Comments francisco LEs and trunk, UE's to facilitate lymphatic flow Compression Garment Assessment Compression Garment Assessment Details did not bring any garments today Other Other application of Cetaphil lotion after MLD francisco le's PT-OP-R Modalities Start: 11/24/23 08:48 Freq: Status: Active Protocol: Document 06/06/24 10:49 SAK (Rec: 06/06/24 16:29 SAK [id number]) Compression Pump Treatment Treatment Location francisco LEs Pressure Amount (mmHg) (mmHG) 45 Inflation Time (Seconds) 30 Deflation Time (Seconds) 5 Treatment Tolerance Good Treatment Comments during MLD opp LE PT-OP-T Assessment and Plan Start: 11/24/23 08:48 Freq: Status: Active Protocol: Document 06/06/24 10:49 KATIA (Rec: 06/06/24 11:30 SAK [id number]) Physical Therapy Assessment Impairments Impairments Activity Tolerance,Edema,Gait, Soft Tissue Mobility Goals Two Impairment Lymphedema life impact scale score 34% Short Term Goal (STG) Decrease score to no greater than24% as measure of improved activity tolerance and quality of life 01/26/24: 30% 02/16/24: dec to 25% 05/22/24: score 23% STG Duration 06/29/24 Fiber Picker Goal (LTG) Decrease lymphedema life impact scale score to no greater than 15% as measure of improved ability to self manage her lymphedema and improved quality of life LTG Duration 08/17/24 One Impairment lymphedema francisco LE's Short Term Goal (STG) Instruct and review all aspects of lymphedema care including skin care, manual lymphatic drainage and use of her lymphedema pump, compression, exercise, and elevation. 01/26/24: goal met STG Duration goal met Fiber Picker Goal (LTG) Patient to be able to self manage all aspects of her lymphedema including donning and doffing appropriate compression garments and use of sequential pneumatic pump 02/16/24: goal progress, still has challenged with donning Bioflect compression tights and is poorlycompliant to wearing velcro compression wraps on knees due to difficulty. 05/18/24: Did not bring wraps today, unable to don independently. Has worn Bioflect a few times since last seen but is exhausted by donning. Has been in hotel 1x since last seen and was then able to use pump. Is on list for affordable housing but hasn't heard anything; living in car which makes management of lymphedema very challenging . LTG Duration 08/17/24 Three Impairment gait impairment Impairment uses FWW and doesn't ambulate significantly other than to come for medical appointments Halfway Goal (LTG) Patient able to ambulate for at least 10 minutes with least restrictive device 01/26/24: continues to use 4WW but limited activity tolerance due to cancer fatigue. 02/16/24: goal progress, and just this week has been able to resume Sci-Fit recumbant elliptical due to decreased weight of legs, improved activity tolerance. Can walk for 4 min max before requiring a rest. 05/18/24: tries to take a walk at least couple times per day LTG Duration 08/17/24 Progress Towards Goals Progress Towards Goals Slow Progress due to Activity Tolerance,Slow Progress due to Medical Issues,Slow Progress - Other Progress Comments financial limitations unhoused status Assessment Summary Assessment Patient left velcro knee wraps on for 3 days and experienced skin breakdown, was advised remove every day to check skin and let breath, possibly only wear during the day. Advised her to bring all compression garments next session to further dischss and PT has contacted [facility] to consult regarding problem solving compression for this complicated patient. Her unhoused status, active cancer with low activity tolerance, and size (lipedema in addition to lymphedema) all affect her progress toward PT goals. Needs continued skilled PT as she is at very high risk for further wounds and deterioration of her lymphedema and lipedema. Physical Therapy Plan Frequency and Duration Frequency of Treatment 20 visits Duration of treatment (weeks) 12 Plan of Care Start Date 05/18/24 Plan of Care End Date 08/17/24 Therapeutic Interventions Therapeutic Interventions Gait Training,Home Exercise Program,Lymphedema Management, Manual Therapy,Patient/ Caregiver Education,Self-Care/ Home Management,Soft Tissue Mobilization,Therapeutic Activities Modalities Vasopneumatic Devices Next Visit Focus/Plan Next Note Type Treatment Note Next Visit Plan Continue Complete decongestive therapy, problem solve compression garments for this patient
--- NOTE | 2024-06-11 16:35 | PT.OTN ---
Current Diagnoses Lymphedema, not elsewhere classified (06/11/24) Physical Therapy Treatment Note PT-OP-A Visit Information Start: 11/24/23 08:48 Freq: Status: Active Protocol: Document 06/11/24 10:56 SAK (Rec: 06/11/24 12:20 [facility] [id number]) Out-Patient Physical Therapy Visit Information Visit Information Visit Type Treatment Note Visit Start Time 10:56 Visit Stop Time 12:15 Visit Number [id number] Evaluation Information Evaluation Date 11/24/23 Precautions Precautions cervical CA PT-OP-B Current Condition Start: 11/24/23 08:48 Freq: Status: Active Protocol: Document 06/11/24 10:56 SAK (Rec: 06/11/24 12:20 [facility] [id number]) Current Condition History of Current Condition Onset Date 2+ years Current Complaints lymphedema bilateral LE's History of Current Condition Patient has long history of lymphedema francisco LE's, previously seen in this clinic . Discharged from PT after wounds healed, fit for bilateral velcro compression wraps. Patient has now developed multiple new wounds and her lymphedema has worsened. Contributing factors are treatment for pelvic cancer, currently receiving chemotherapy treatments, as well as homelessness and difficulty performing self management program, plus obesity. States she cant bend to put on velcro wraps, has been wearing compression tights: Bioflect. Prior Treatments and Tests prior wound care and lymphedema management Treatment Goals Patient/Caregiver Goals Decrease lymphedema and be able to self manage lymphedema Prior Functional Status Baseline Function- ADL's Modified Independent Baseline Function- Mobility Modified Independent Baseline Function- Gait indep short distances with FWW Baseline Function- Other homeless, occasional stays in hotel where she is able to use her pump Current Functional Impairments (Reported) Functional Limitations- ADL's modfied indep Functional Limitations- Mobility/Gait indep very short distances Functional Limitations- 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 Given medication to calm her, feeling a bit better. Thinks will be discharged from wound care this week. PT-OP-F Manual Assessment Start: 11/24/23 08:48 Freq: Status: Active Protocol: Document 11/24/23 09:30 SAK (Rec: 11/24/23 16:01 [facility] [id number]) Manual Assessments Soft Tissue Assessment Soft Tissue Mobility Assessment hyperkeratosis and fibrosis bilateral lower legs PT-OP-G Mobility & Gait Start: 11/24/23 08:48 Freq: Status: Active Protocol: Document 11/24/23 09:30 [facility] (Rec: 11/24/23 16:01 [facility] [id number]) OP Gait Assessment Gait Gait Assistance Required: Independent Assistive Devices Assistive Device Front Wheeled Walker Gait Deviations General Gait Pattern Antalgic,Decreased Stride Length,Decreased Feet Clearance Factors Limiting Gait Function Factors Limiting Gait Function Decreased Activity Tolerance, Decreased Strength PT-OP-K Range of Motion Start: 11/24/23 08:48 Freq: Status: Active Protocol: Document 11/24/23 09:30 [facility] (Rec: 11/24/23 16:01 [facility] [id number]) Hip Goniometric Range of Motion Hip francisco Hip ROM WFL No Comments mod decrease Hip ROM Limitations Hip ROM Limitations Soft Tissue Tightness,Muscle Weakness Knee Goniometric Range of Motion Knee francisco Knee ROM WFL No Comments flexion limited by tissue approximation Ankle and Foot Goniometric Range of Motion Ankle and Foot francisco Ankle/Foot ROM WFL Yes PT-OP-L Special Tests Start: 11/24/23 08:48 Freq: Status: Active Protocol: Document 11/24/23 09:30 [facility] (Rec: 11/24/23 16:02 [facility] [id number]) Special Tests Other Special Tests Special Tests Stemmer sign positive bilaterally PT-OP-M Strength Start: 11/24/23 08:48 Freq: Status: Active Protocol: Document 11/24/23 09:30 SAK (Rec: 11/24/23 16:03 [facility] [id number]) Hip Strength Hip Manual Muscle Testing francisco Comments limited to less than 3/5 francisco, impacted by both muscle weakness and weight of legs with lymphedema Knee Strength Knee Manual Muscle Testing francisco Flexion (S2) 3+ Fair+ Extension (L3) 3+ Fair+ Ankle/Foot Strength Ankle and Foot Manual Muscle Testing francisco Dorsiflexion (L4) 4- Good- Plantarflexion (S1) 4- Good- PT-OP-N Lymphedema Start: 11/24/23 08:48 Freq: Status: Active Protocol: Document 06/06/24 10:49 [facility] (Rec: 06/06/24 11:30 [facility] [id number]) Lymphedema Measurements Lower Extremity Circumference Measurements Left Affected MT Heads 25.3 cm Mid-foot 24.7 cm Medial Malleolus 33.2 cm 10 cm From Medial Malleolus 49.4 cm 20 cm From Medial Malleolus 58.5 cm 30 cm From Medial Malleolus 69.4 cm 40 cm From Medial Malleolus 77.5 cm 50 cm From Medial Malleolus 71 cm 60 cm From Medial Malleolus 75.4 cm Knee Joint 77.8 cm right affected MT Heads 25.2 cm Mid-foot 26 cm Medial Malleolus 35.7 cm 10 cm From Medial Malleolus 58.3 cm 20 cm From Medial Malleolus 66.7 cm 30 cm From Medial Malleolus 79.4 cm 40 cm From Medial Malleolus 77.8 cm 50 cm From Medial Malleolus 74.3 cm 60 cm From Medial Malleolus 73 cm Knee Joint 77.8 cm PT-OP-Q Treatments Start: 11/24/23 08:48 Freq: Status: Active Protocol: Document 06/11/24 10:56 [facility] (Rec: 06/11/24 16:35 [facility] [id number]) Therapeutic Activity Therapeutic Activity donning/doffing pants Reps/Minutes 6 Comments min assist Lymphedema Treatment Manual Lymphatic Drainage Location francisco LE's Duration 30 Comments Sequential pneumatic pump to each leg 20 min during MLD opposite side. Lymphedema Wrapping Materials Barrier cream applied posterior superior calves, Nistin powder applied to knee creases. Francisco LE's with Coban Lite system toes to knees, black foam anterior ankle crease. Cast padding proximal lower leg to decrease blistering. No Bioflect due to being laundered. Did not bring any of her other velcro wraps either, reminded to bring all garments next session for further disussion and problem solving Sequential Lymphedema Exercises Comments francisco LEs and trunk, UE's to facilitate lymphatic flow Compression Garment Assessment Compression Garment Assessment Details did not bring any garments today Other Other application of Cetaphil lotion after MLD francisco le's PT-OP-R Modalities Start: 11/24/23 08:48 Freq: Status: Active Protocol: Document 06/11/24 10:56 [facility] (Rec: 06/11/24 16:35 [facility] [id number]) Compression Pump Treatment Treatment Location francisco LEs Pressure Amount (mmHg) (mmHG) 45 Inflation Time (Seconds) 30 Deflation Time (Seconds) 5 Treatment Tolerance Good Treatment Comments during MLD opp LE PT-OP-T Assessment and Plan Start: 11/24/23 08:48 Freq: Status: Active Protocol: Document 06/11/24 10:56 [facility] (Rec: 06/11/24 12:20 [facility] [id number]) Physical Therapy Assessment Impairments Impairments Activity Tolerance,Edema,Gait, Soft Tissue Mobility Goals Two Impairment Lymphedema life impact scale score 34% Short Term Goal (STG) Decrease score to no greater than24% as measure of improved activity tolerance and quality of life 01/26/24: 30% 02/16/24: dec to 25% 05/22/24: score 23% STG Duration 06/29/24 Prison Goal (LTG) Decrease lymphedema life impact scale score to no greater than 15% as measure of improved ability to self manage her lymphedema and improved quality of life LTG Duration 08/17/24 One Impairment lymphedema francisco LE's Short Term Goal (STG) Instruct and review all aspects of lymphedema care including skin care, manual lymphatic drainage and use of her lymphedema pump, compression, exercise, and elevation. 01/26/24: goal met STG Duration goal met Head Strength And Conditioning Coach Goal (LTG) Patient to be able to self manage all aspects of her lymphedema including donning and doffing appropriate compression garments and use of sequential pneumatic pump 02/16/24: goal progress, still has challenged with donning Bioflect compression tights and is poorlycompliant to wearing velcro compression wraps on knees due to difficulty. 05/18/24: Did not bring wraps today, unable to don independently. Has worn Bioflect a few times since last seen but is exhausted by donning. Has been in hotel 1x since last seen and was then able to use pump. Is on list for affordable housing but hasn't heard anything; living in car which makes management of lymphedema very challenging . LTG Duration 08/17/24 Three Impairment gait impairment Impairment uses FWW and doesn't ambulate significantly other than to come for medical appointments Prison Goal (LTG) Patient able to ambulate for at least 10 minutes with least restrictive device 01/26/24: continues to use 4WW but limited activity tolerance due to cancer fatigue. 02/16/24: goal progress, and just this week has been able to resume Sci-Fit recumbant elliptical due to decreased weight of legs, improved activity tolerance. Can walk for 4 min max before requiring a rest. 05/18/24: tries to take a walk at least couple times per day LTG Duration 08/17/24 Progress Towards Goals Progress Towards Goals Slow Progress due to Activity Tolerance,Slow Progress due to Medical Issues,Slow Progress - Other Progress Comments financial limitations unhoused status active cancer of uterus Assessment Summary Assessment Patient measured for Juzo compression wraps after consultation with [facility]. She is likely to be discharged from wound care this week. Needs further lymphedema management as she continues to have difficulty self managing, instructed to bring all her velcro wraps today but only brought knee component. Almost unable to apply compression pump to her right leg due to increase in size. Was late to PT due to having difficulty breathing, went to urgent care, told it was a panic attack, thinks feeling overwhelmed, just got to me. 15 min late for PT appt. Was given medication, feeling a bit better. Physical Therapy Plan Frequency and Duration Frequency of Treatment 20 visits Duration of treatment (weeks) 12 Plan of Care Start Date 05/18/24 Plan of Care End Date 08/17/24 Therapeutic Interventions Therapeutic Interventions Gait Training,Home Exercise Program,Lymphedema Management, Manual Therapy,Patient/ Caregiver Education,Self-Care/ Home Management,Soft Tissue Mobilization,Therapeutic Activities Modalities Vasopneumatic Devices Next Visit Focus/Plan Next Note Type Treatment Note Next Visit Plan Continue Complete decongestive therapy, order Juzo Compression wraps for patient via [facility].
--- NOTE | 2024-06-19 11:42 | PT.OTN ---
Current Diagnoses Lymphedema, not elsewhere classified (06/19/24) Physical Therapy Treatment Note PT-OP-A Visit Information Start: 11/24/23 08:48 Freq: Status: Active Protocol: Document 06/19/24 10:47 SAK (Rec: 06/19/24 10:52 SAK [id number]) Out-Patient Physical Therapy Visit Information Visit Information Visit Type Treatment Note Visit Start Time 10:47 Visit Stop Time 12:15 Visit Number 29 Evaluation Information Evaluation Date 11/24/23 Precautions Precautions cervical CA PT-OP-B Current Condition Start: 11/24/23 08:48 Freq: Status: Active Protocol: Document 06/19/24 10:47 SAK (Rec: 06/19/24 10:52 SAK [id number]) Current Condition History of Current Condition Onset Date 2+ years Current Complaints lymphedema bilateral LE's History of Current Condition Patient has long history of lymphedema francisco LE's, previously seen in this clinic . Discharged from PT after wounds healed, fit for bilateral velcro compression wraps. Patient has now developed multiple new wounds and her lymphedema has worsened. Contributing factors are treatment for pelvic cancer, currently receiving chemotherapy treatments, as well as homelessness and difficulty performing self management program, plus obesity. States she cant bend to put on velcro wraps, has been wearing compression tights: Bioflect. Prior Treatments and Tests prior wound care and lymphedema management PT-OP-C Subjective Start: 11/24/23 08:48 Freq: Status: Active Protocol: Document 06/19/24 10:47 SAK (Rec: 06/19/24 10:52 SAK [id number]) OP-PT Subjective Patient Comments Patient Comments Reports some skin breakdown on her left side. Had to take the Coban off a couple days ago. Did wear Bioflect yesterday, took off this am. States velcro wraps are in the laundry. PT-OP-F Manual Assessment Start: 11/24/23 08:48 Freq: Status: Active Protocol: Document 11/24/23 09:30 SAK (Rec: 11/24/23 16:01 SAK [id number]) Manual Assessments Soft Tissue Assessment Soft Tissue Mobility Assessment hyperkeratosis and fibrosis bilateral lower legs PT-OP-G Mobility & Gait Start: 11/24/23 08:48 Freq: Status: Active Protocol: Document 11/24/23 09:30 SAK (Rec: 11/24/23 16:01 [facility] [id number]) OP Gait Assessment Gait Gait Assistance Required: Independent Assistive Devices Assistive Device Front Wheeled Walker Gait Deviations General Gait Pattern Antalgic,Decreased Stride Length,Decreased Feet Clearance Factors Limiting Gait Function Factors Limiting Gait Function Decreased Activity Tolerance, Decreased Strength PT-OP-K Range of Motion Start: 11/24/23 08:48 Freq: Status: Active Protocol: Document 11/24/23 09:30 [facility] (Rec: 11/24/23 16:01 [facility] [id number]) Hip Goniometric Range of Motion Hip francisco Hip ROM WFL No Comments mod decrease Hip ROM Limitations Hip ROM Limitations Soft Tissue Tightness,Muscle Weakness Knee Goniometric Range of Motion Knee francisco Knee ROM WFL No Comments flexion limited by tissue approximation Ankle and Foot Goniometric Range of Motion Ankle and Foot francisco Ankle/Foot ROM WFL Yes PT-OP-L Special Tests Start: 11/24/23 08:48 Freq: Status: Active Protocol: Document 11/24/23 09:30 [facility] (Rec: 11/24/23 16:02 [facility] [id number]) Special Tests Other Special Tests Special Tests Stemmer sign positive bilaterally PT-OP-M Strength Start: 11/24/23 08:48 Freq: Status: Active Protocol: Document 11/24/23 09:30 [facility] (Rec: 11/24/23 16:03 [facility] [id number]) Hip Strength Hip Manual Muscle Testing francisco Comments limited to less than 3/5 francisco, impacted by both muscle weakness and weight of legs with lymphedema Knee Strength Knee Manual Muscle Testing francisco Flexion (S2) 3+ Fair+ Extension (L3) 3+ Fair+ Ankle/Foot Strength Ankle and Foot Manual Muscle Testing francisco Dorsiflexion (L4) 4- Good- Plantarflexion (S1) 4- Good- PT-OP-N Lymphedema Start: 11/24/23 08:48 Freq: Status: Active Protocol: Document 06/19/24 10:47 [facility] (Rec: 06/19/24 11:09 [facility] [id number]) Lymphedema Measurements Lower Extremity Circumference Measurements Left Affected MT Heads 27.6 cm Mid-foot 28.3 cm Medial Malleolus 40.1 cm 10 cm From Medial Malleolus 56 cm 20 cm From Medial Malleolus 63.8 cm 30 cm From Medial Malleolus 67.3 cm 40 cm From Medial Malleolus 71.3 cm 50 cm From Medial Malleolus 73.5 cm 60 cm From Medial Malleolus 79.8 cm Knee Joint 65.7 cm right affected MT Heads 26.8 cm Mid-foot 26.8 cm Medial Malleolus 38.8 cm 10 cm From Medial Malleolus 61.3 cm 20 cm From Medial Malleolus 71.3 cm 30 cm From Medial Malleolus 78.3 cm 40 cm From Medial Malleolus 75.3 cm 50 cm From Medial Malleolus 76 cm 60 cm From Medial Malleolus 76.5 cm Knee Joint 78.3 cm PT-OP-Q Treatments Start: 11/24/23 08:48 Freq: Status: Active Protocol: Document 06/19/24 10:47 KATIA (Rec: 06/19/24 11:09 [facility] [id number]) Therapeutic Activity Therapeutic Activity donning/doffing pants Reps/Minutes 6 Comments min assist Lymphedema Treatment Manual Lymphatic Drainage Location francisco LE's Duration 30 Comments Sequential pneumatic pump to each leg 20 min during MLD opposite side. Lymphedema Wrapping Materials Barrier cream applied posterior superior calves, Nistin powder applied to knee creases. Francisco LE's with Coban Lite system toes to knees, black foam anterior ankle crease. Cast padding proximal lower leg to decrease blistering. No Bioflect due to being laundered. Did not bring any of her other velcro wraps either, reminded to bring all garments next session for further disussion and problem solving Sequential Lymphedema Exercises Comments francisco LEs and trunk, UE's to facilitate lymphatic flow Compression Garment Assessment Compression Garment Assessment Details did not bring any garments today Other Other application of Cetaphil lotion after MLD francisco le's PT-OP-R Modalities Start: 11/24/23 08:48 Freq: Status: Active Protocol: Document 06/19/24 10:47 [facility]ATIA (Rec: 06/19/24 10:52 [facility] [id number]) Compression Pump Treatment Treatment Location francisco LEs Pressure Amount (mmHg) (mmHG) 45 Inflation Time (Seconds) 30 Deflation Time (Seconds) 5 Treatment Tolerance Good Treatment Comments during MLD opp LE PT-OP-T Assessment and Plan Start: 11/24/23 08:48 Freq: Status: Active Protocol: Document 06/19/24 10:47 KATIA (Rec: 06/19/24 10:52 [facility] [id number]) Physical Therapy Assessment Impairments Impairments Activity Tolerance,Edema,Gait, Soft Tissue Mobility Goals Two Impairment Lymphedema life impact scale score 34% Short Term Goal (STG) Decrease score to no greater than24% as measure of improved activity tolerance and quality of life 01/26/24: 30% 02/16/24: dec to 25% 05/22/24: score 23% STG Duration 06/29/24 Desk Operator Goal (LTG) Decrease lymphedema life impact scale score to no greater than 15% as measure of improved ability to self manage her lymphedema and improved quality of life LTG Duration 08/17/24 One Impairment lymphedema francisco LE's Short Term Goal (STG) Instruct and review all aspects of lymphedema care including skin care, manual lymphatic drainage and use of her lymphedema pump, compression, exercise, and elevation. 01/26/24: goal met STG Duration goal met Snf Goal (LTG) Patient to be able to self manage all aspects of her lymphedema including donning and doffing appropriate compression garments and use of sequential pneumatic pump 02/16/24: goal progress, still has challenged with donning Bioflect compression tights and is poorlycompliant to wearing velcro compression wraps on knees due to difficulty. 05/18/24: Did not bring wraps today, unable to don independently. Has worn Bioflect a few times since last seen but is exhausted by donning. Has been in hotel 1x since last seen and was then able to use pump. Is on list for affordable housing but hasn't heard anything; living in car which makes management of lymphedema very challenging . LTG Duration 08/17/24 Three Impairment gait impairment Impairment uses FWW and doesn't ambulate significantly other than to come for medical appointments Desk Operator Goal (LTG) Patient able to ambulate for at least 10 minutes with least restrictive device 01/26/24: continues to use 4WW but limited activity tolerance due to cancer fatigue. 02/16/24: goal progress, and just this week has been able to resume Sci-Fit recumbant elliptical due to decreased weight of legs, improved activity tolerance. Can walk for 4 min max before requiring a rest. 05/18/24: tries to take a walk at least couple times per day LTG Duration 08/17/24 Progress Towards Goals Progress Towards Goals Slow Progress due to Activity Tolerance,Slow Progress due to Medical Issues,Slow Progress - Other Progress Comments financial limitations unhoused status active cancer of uterus Assessment Summary Assessment Increase in circunmferential measurements, had to take Coban off and has some breakdown in skin back of left leg. Consulted with wound care nurse for recommendations , applied barrier cream and nystatin. Physical Therapy Plan Frequency and Duration Frequency of Treatment 20 visits Duration of treatment (weeks) 12 Plan of Care Start Date 05/18/24 Plan of Care End Date 08/17/24 Therapeutic Interventions Therapeutic Interventions Gait Training,Home Exercise Program,Lymphedema Management, Manual Therapy,Patient/ Caregiver Education,Self-Care/ Home Management,Soft Tissue Mobilization,Therapeutic Activities Modalities Vasopneumatic Devices Next Visit Focus/Plan Next Note Type Treatment Note Next Visit Plan Continue Complete decongestive therapy, order Juzo Compression wraps for patient via [facility].
--- NOTE | 2024-07-02 10:23 | PT.OTN ---
Current Diagnoses Lymphedema, not elsewhere classified (07/02/24) Physical Therapy Treatment Note PT-OP-A Visit Information Start: 11/24/23 08:48 Freq: Status: Active Protocol: Document 07/02/24 09:06 SAK (Rec: 07/02/24 10:23 [facility] [id number]) Out-Patient Physical Therapy Visit Information Visit Information Visit Type Treatment Note Visit Start Time 09:02 Visit Number 30 Evaluation Information Evaluation Date 11/24/23 Precautions Precautions cervical CA PT-OP-B Current Condition Start: 11/24/23 08:48 Freq: Status: Active Protocol: Document 07/02/24 09:06 SAK (Rec: 07/02/24 10:23 [facility] [id number]) Current Condition History of Current Condition Onset Date 2+ years Current Complaints lymphedema bilateral LE's History of Current Condition Patient has long history of lymphedema stella LE's, previously seen in this clinic . Discharged from PT after wounds healed, fit for bilateral velcro compression wraps. Patient has now developed multiple new wounds and her lymphedema has worsened. Contributing factors are treatment for pelvic cancer, currently receiving chemotherapy treatments, as well as homelessness and difficulty performing self management program, plus obesity. States she cant bend to put on velcro wraps, has been wearing compression tights: Bioflect. Prior Treatments and Tests prior wound care and lymphedema management PT-OP-C Subjective Start: 11/24/23 08:48 Freq: Status: Active Protocol: Document 07/02/24 09:06 SAK (Rec: 07/02/24 10:23 [facility] [id number]) OP-PT Subjective Patient Comments Patient Comments Gets iron transfusion tomorrow . Has breakdown back of both legs, sees wound care after PT . Is on antibiotics. PT-OP-F Manual Assessment Start: 11/24/23 08:48 Freq: Status: Active Protocol: Document 11/24/23 09:30 SAK (Rec: 11/24/23 16:01 [facility] [id number]) Manual Assessments Soft Tissue Assessment Soft Tissue Mobility Assessment hyperkeratosis and fibrosis bilateral lower legs PT-OP-G Mobility & Gait Start: 11/24/23 08:48 Freq: Status: Active Protocol: Document 11/24/23 09:30 SAK (Rec: 11/24/23 16:01 SAK [id number]) OP Gait Assessment Gait Gait Assistance Required: Independent Assistive Devices Assistive Device Front Wheeled Walker Gait Deviations General Gait Pattern Antalgic,Decreased Stride Length,Decreased Feet Clearance Factors Limiting Gait Function Factors Limiting Gait Function Decreased Activity Tolerance, Decreased Strength PT-OP-K Range of Motion Start: 11/24/23 08:48 Freq: Status: Active Protocol: Document 11/24/23 09:30 SAK (Rec: 11/24/23 16:01 [facility] [id number]) Hip Goniometric Range of Motion Hip stella Hip ROM WFL No Comments mod decrease Hip ROM Limitations Hip ROM Limitations Soft Tissue Tightness,Muscle Weakness Knee Goniometric Range of Motion Knee stella Knee ROM WFL No Comments flexion limited by tissue approximation Ankle and Foot Goniometric Range of Motion Ankle and Foot stella Ankle/Foot ROM WFL Yes PT-OP-L Special Tests Start: 11/24/23 08:48 Freq: Status: Active Protocol: Document 11/24/23 09:30 [facility] (Rec: 11/24/23 16:02 [facility] [id number]) Special Tests Other Special Tests Special Tests Stemmer sign positive bilaterally PT-OP-M Strength Start: 11/24/23 08:48 Freq: Status: Active Protocol: Document 11/24/23 09:30 SAK (Rec: 11/24/23 16:03 [facility] [id number]) Hip Strength Hip Manual Muscle Testing stella Comments limited to less than 3/5 stella, impacted by both muscle weakness and weight of legs with lymphedema Knee Strength Knee Manual Muscle Testing stella Flexion (S2) 3+ Fair+ Extension (L3) 3+ Fair+ Ankle/Foot Strength Ankle and Foot Manual Muscle Testing stella Dorsiflexion (L4) 4- Good- Plantarflexion (S1) 4- Good- PT-OP-N Lymphedema Start: 11/24/23 08:48 Freq: Status: Active Protocol: Document 07/02/24 09:06 [facility] (Rec: 07/02/24 10:23 [facility] [id number]) Lymphedema Measurements Lower Extremity Circumference Measurements Left Affected MT Heads 24.6 cm Medial Malleolus 25.7 cm 10 cm From Medial Malleolus 50.5 cm 20 cm From Medial Malleolus 60 cm 30 cm From Medial Malleolus 65.5 cm 40 cm From Medial Malleolus 71.5 cm 50 cm From Medial Malleolus 75 cm 60 cm From Medial Malleolus 79.3 cm Knee Joint 65 cm right affected MT Heads 25.8 cm Mid-foot 25.8 cm Medial Malleolus 37.8 cm 10 cm From Medial Malleolus 59.5 cm 20 cm From Medial Malleolus 68.8 cm 30 cm From Medial Malleolus 75.3 cm 40 cm From Medial Malleolus 75.7 cm 50 cm From Medial Malleolus 75.8 cm 60 cm From Medial Malleolus 75.3 cm Knee Joint 75.7 cm PT-OP-Q Treatments Start: 11/24/23 08:48 Freq: Status: Active Protocol: Document 07/02/24 09:06 [facility] (Rec: 07/02/24 10:23 [facility] [id number]) Therapeutic Activity Therapeutic Activity donning/doffing pants Reps/Minutes 6 Comments min assist Lymphedema Treatment Manual Lymphatic Drainage Location stella LE's Duration 40 Comments Sequential pneumatic pump to each leg 20 min during MLD opposite side. Lymphedema Wrapping Materials Patient going to wound care after PT, no bandaging done. More time on MLD and use of sequential pneumatic pump. Sequential Lymphedema Exercises Comments stella LEs and trunk, UE's to facilitate lymphatic flow Compression Garment Assessment Compression Garment Assessment Details seeing wound care after PT, will don Bioflect after wound care appointment. Other Other application of Cetaphil lotion after MLD stella le's PT-OP-R Modalities Start: 11/24/23 08:48 Freq: Status: Active Protocol: Document 07/02/24 09:06 [facility] (Rec: 07/02/24 10:23 [facility] [id number]) Compression Pump Treatment Treatment Location stella LEs Pressure Amount (mmHg) (mmHG) 45 Inflation Time (Seconds) 30 Deflation Time (Seconds) 5 Treatment Tolerance Good Treatment Comments during MLD opp LE PT-OP-T Assessment and Plan Start: 11/24/23 08:48 Freq: Status: Active Protocol: Document 07/02/24 09:06 SAK (Rec: 07/02/24 10:23 [facility] [id number]) Physical Therapy Assessment Impairments Impairments Activity Tolerance,Edema,Gait, Soft Tissue Mobility Goals Two Impairment Lymphedema life impact scale score 34% Short Term Goal (STG) Decrease score to no greater than24% as measure of improved activity tolerance and quality of life 01/26/24: 30% 02/16/24: dec to 25% 05/22/24: score 23% STG Duration 06/29/24 Long-Term Goal (LTG) Decrease lymphedema life impact scale score to no greater than 15% as measure of improved ability to self manage her lymphedema and improved quality of life LTG Duration 08/17/24 One Impairment lymphedema stella RENE's Short Term Goal (STG) Instruct and review all aspects of lymphedema care including skin care, manual lymphatic drainage and use of her lymphedema pump, compression, exercise, and elevation. 01/26/24: goal met STG Duration goal met Long-Term Goal (LTG) Patient to be able to self manage all aspects of her lymphedema including donning and doffing appropriate compression garments and use of sequential pneumatic pump 02/16/24: goal progress, still has challenged with donning Bioflect compression tights and is poorlycompliant to wearing velcro compression wraps on knees due to difficulty. 05/18/24: Did not bring wraps today, unable to don independently. Has worn Bioflect a few times since last seen but is exhausted by donning. Has been in hotel 1x since last seen and was then able to use pump. Is on list for affordable housing but hasn't heard anything; living in car which makes management of lymphedema very challenging . LTG Duration 08/17/24 Three Impairment gait impairment Impairment uses FWW and doesn't go out of the house other than for medical appointments Heel Varnisher Goal (LTG) Patient able to ambulate for at least 10 minutes with least restrictive device 01/26/24: continues to use 4WW but limited activity tolerance due to cancer fatigue. 02/16/24: goal progress, and just this week has been able to resume Sci-Fit recumbant elliptical due to decreased weight of legs, improved activity tolerance. Can walk for 4 min max before requiring a rest. 05/18/24: tries to take a walk at least couple times per day LTG Duration 08/17/24 Progress Towards Goals Progress Towards Goals Slow Progress due to Activity Tolerance,Slow Progress due to Medical Issues,Slow Progress - Other Progress Comments financial limitations unhoused status active cancer of uterus Assessment Summary Assessment Improved distal cilrcumferential measurements, likely due to taking antibiotics as well as patient reporting wearing compression more consistently. Physical Therapy Plan Frequency and Duration Frequency of Treatment 20 visits Duration of treatment (weeks) 12 Plan of Care Start Date 05/18/24 Plan of Care End Date 08/17/24 Therapeutic Interventions Therapeutic Interventions Gait Training,Home Exercise Program,Lymphedema Management, Manual Therapy,Patient/ Caregiver Education,Self-Care/ Home Management,Soft Tissue Mobilization,Therapeutic Activities Modalities Vasopneumatic Devices Next Visit Focus/Plan Next Note Type Treatment Note Next Visit Plan Continue CDT. Increase exercise component as tolerated.
--- NOTE | 2024-07-05 11:17 | PT.OTN ---
Current Diagnoses Lymphedema, not elsewhere classified (07/05/24) Physical Therapy Treatment Note PT-OP-A Visit Information Start: 11/24/23 08:48 Freq: Status: Active Protocol: Document 07/05/24 10:44 SAK (Rec: 07/05/24 11:17 SAK [id number]) Out-Patient Physical Therapy Visit Information Visit Information Visit Type Treatment Note Visit Start Time 10:45 Visit Stop Time 11:57 Visit Number 31 Evaluation Information Evaluation Date 11/24/23 Precautions Precautions cervical CA PT-OP-B Current Condition Start: 11/24/23 08:48 Freq: Status: Active Protocol: Document 07/05/24 10:44 SAK (Rec: 07/05/24 11:17 SAK [id number]) Current Condition History of Current Condition Onset Date 2+ years Current Complaints lymphedema bilateral LE's History of Current Condition Patient has long history of lymphedema stella LE's, previously seen in this clinic . Discharged from PT after wounds healed, fit for bilateral velcro compression wraps. Patient has now developed multiple new wounds and her lymphedema has worsened. Contributing factors are treatment for pelvic cancer, currently receiving chemotherapy treatments, as well as homelessness and difficulty performing self management program, plus obesity. States she cant bend to put on velcro wraps, has been wearing compression tights: Bioflect. Prior Treatments and Tests prior wound care and lymphedema management PT-OP-C Subjective Start: 11/24/23 08:48 Freq: Status: Active Protocol: Document 07/05/24 10:44 SAK (Rec: 07/05/24 11:17 SAK [id number]) OP-PT Subjective Patient Comments Patient Comments A little more energy after transfusion. Reports bandages from wound care slid down, more swollen. Also reports stress eating saltty snacks yesterday due to distress about election, may have contributed. States wound care said her wounds are healing. In hotel 2 days this weekend so will be able to use her pump. PT-OP-F Manual Assessment Start: 11/24/23 08:48 Freq: Status: Active Protocol: Document 11/24/23 09:30 SAK (Rec: 11/24/23 16:01 SAK [id number]) Manual Assessments Soft Tissue Assessment Soft Tissue Mobility Assessment hyperkeratosis and fibrosis bilateral lower legs PT-OP-G Mobility & Gait Start: 11/24/23 08:48 Freq: Status: Active Protocol: Document 11/24/23 09:30 SAK (Rec: 11/24/23 16:01 [facility] [id number]) OP Gait Assessment Gait Gait Assistance Required: Independent Assistive Devices Assistive Device Front Wheeled Walker Gait Deviations General Gait Pattern Antalgic,Decreased Stride Length,Decreased Feet Clearance Factors Limiting Gait Function Factors Limiting Gait Function Decreased Activity Tolerance, Decreased Strength PT-OP-K Range of Motion Start: 11/24/23 08:48 Freq: Status: Active Protocol: Document 11/24/23 09:30 SAK (Rec: 11/24/23 16:01 [facility] [id number]) Hip Goniometric Range of Motion Hip stella Hip ROM WFL No Comments mod decrease Hip ROM Limitations Hip ROM Limitations Soft Tissue Tightness,Muscle Weakness Knee Goniometric Range of Motion Knee stella Knee ROM WFL No Comments flexion limited by tissue approximation Ankle and Foot Goniometric Range of Motion Ankle and Foot stella Ankle/Foot ROM WFL Yes PT-OP-L Special Tests Start: 11/24/23 08:48 Freq: Status: Active Protocol: Document 11/24/23 09:30 [facility] (Rec: 11/24/23 16:02 [facility] [id number]) Special Tests Other Special Tests Special Tests Stemmer sign positive bilaterally PT-OP-M Strength Start: 11/24/23 08:48 Freq: Status: Active Protocol: Document 11/24/23 09:30 SAK (Rec: 11/24/23 16:03 SAK [id number]) Hip Strength Hip Manual Muscle Testing stella Comments limited to less than 3/5 stella, impacted by both muscle weakness and weight of legs with lymphedema Knee Strength Knee Manual Muscle Testing stella Flexion (S2) 3+ Fair+ Extension (L3) 3+ Fair+ Ankle/Foot Strength Ankle and Foot Manual Muscle Testing stella Dorsiflexion (L4) 4- Good- Plantarflexion (S1) 4- Good- PT-OP-N Lymphedema Start: 11/24/23 08:48 Freq: Status: Active Protocol: Document 07/05/24 10:44 SAK (Rec: 07/05/24 11:17 SAK [id number]) Lymphedema Measurements Lower Extremity Circumference Measurements Left Affected MT Heads 25.2 cm Mid-foot 25.2 cm Medial Malleolus 36.5 cm 10 cm From Medial Malleolus 50.9 cm 20 cm From Medial Malleolus 66.6 cm 30 cm From Medial Malleolus 77.3 cm 40 cm From Medial Malleolus 80.8 cm 50 cm From Medial Malleolus 76.3 cm 60 cm From Medial Malleolus 78.8 cm Knee Joint 78.3 cm right affected MT Heads 27.2 cm Mid-foot 27.7 cm Medial Malleolus 37.7 cm 10 cm From Medial Malleolus 56.5 cm 20 cm From Medial Malleolus 69.5 cm 30 cm From Medial Malleolus 76.8 cm 40 cm From Medial Malleolus 81.8 cm 50 cm From Medial Malleolus 80 cm 60 cm From Medial Malleolus 73 cm PT-OP-Q Treatments Start: 11/24/23 08:48 Freq: Status: Active Protocol: Document 07/05/24 10:44 KATIA (Rec: 07/05/24 11:17 [facility] [id number]) Therapeutic Activity Therapeutic Activity donning/doffing pants Reps/Minutes 6 Comments min assist Lymphedema Treatment Manual Lymphatic Drainage Location stella LE's Duration 40 Comments Sequential pneumatic pump to each leg 20 min during MLD opposite side. Lymphedema Wrapping Materials Patient going to wound care after PT, no bandaging done. More time on MLD and use of sequential pneumatic pump. Sequential Lymphedema Exercises Comments stella LEs and trunk, UE's to facilitate lymphatic flow Compression Garment Assessment Compression Garment Assessment Details seeing wound care after PT, will don Bioflect after wound care appointment. Other Other application of Cetaphil lotion after MLD stella le's PT-OP-R Modalities Start: 11/24/23 08:48 Freq: Status: Active Protocol: Document 07/05/24 10:44 SAK (Rec: 07/05/24 11:17 [facility] [id number]) Compression Pump Treatment Treatment Location stella LEs Pressure Amount (mmHg) (mmHG) 45 Inflation Time (Seconds) 30 Deflation Time (Seconds) 5 Treatment Tolerance Good Treatment Comments during MLD opp LE PT-OP-T Assessment and Plan Start: 11/24/23 08:48 Freq: Status: Active Protocol: Document 07/05/24 10:44 SAK (Rec: 07/05/24 11:17 [facility] [id number]) Physical Therapy Assessment Impairments Impairments Activity Tolerance,Edema,Gait, Soft Tissue Mobility Goals Two Impairment Lymphedema life impact scale score 34% Short Term Goal (STG) Decrease score to no greater than24% as measure of improved activity tolerance and quality of life 01/26/24: 30% 02/16/24: dec to 25% 05/22/24: score 23% STG Duration 06/29/24 Mcc Goal (LTG) Decrease lymphedema life impact scale score to no greater than 15% as measure of improved ability to self manage her lymphedema and improved quality of life LTG Duration 08/17/24 One Impairment lymphedema stella LE's Short Term Goal (STG) Instruct and review all aspects of lymphedema care including skin care, manual lymphatic drainage and use of her lymphedema pump, compression, exercise, and elevation. 01/26/24: goal met STG Duration goal met [employer] Goal (LTG) Patient to be able to self manage all aspects of her lymphedema including donning and doffing appropriate compression garments and use of sequential pneumatic pump 02/16/24: goal progress, still has challenged with donning Bioflect compression tights and is poorlycompliant to wearing velcro compression wraps on knees due to difficulty. 05/18/24: Did not bring wraps today, unable to don independently. Has worn Bioflect a few times since last seen but is exhausted by donning. Has been in hotel 1x since last seen and was then able to use pump. Is on list for affordable housing but hasn't heard anything; living in car which makes management of lymphedema very challenging . LTG Duration 08/17/24 Three Impairment gait impairment Impairment uses FWW and doesn't go out of the house other than for medical appointments Mcc Goal (LTG) Patient able to ambulate for at least 10 minutes with least restrictive device 01/26/24: continues to use 4WW but limited activity tolerance due to cancer fatigue. 02/16/24: goal progress, and just this week has been able to resume Sci-Fit recumbant elliptical due to decreased weight of legs, improved activity tolerance. Can walk for 4 min max before requiring a rest. 05/18/24: tries to take a walk at least couple times per day LTG Duration 08/17/24 Progress Towards Goals Progress Towards Goals Slow Progress due to Activity Tolerance,Slow Progress due to Medical Issues,Slow Progress - Other Progress Comments financial limitations unhoused status active cancer of uterus Assessment Summary Assessment wounds healing but circumferential measurements increased due to bandages from wound care sliding down as well as dietary issues. 41 Physical Therapy Plan Frequency and Duration Frequency of Treatment 20 visits Duration of treatment (weeks) 12 Plan of Care Start Date 05/18/24 Plan of Care End Date 08/17/24 Therapeutic Interventions Therapeutic Interventions Gait Training,Home Exercise Program,Lymphedema Management, Manual Therapy,Patient/ Caregiver Education,Self-Care/ Home Management,Soft Tissue Mobilization,Therapeutic Activities Modalities Vasopneumatic Devices Next Visit Focus/Plan Next Note Type Treatment Note Next Visit Plan Continue CDT, monitor for wounds, provide education.
--- NOTE | 2024-07-09 11:27 | PT.OTN ---
Current Diagnoses Lymphedema, not elsewhere classified (07/09/24) Physical Therapy Treatment Note PT-OP-A Visit Information Start: 11/24/23 08:48 Freq: Status: Active Protocol: Document 07/09/24 10:39 SAK (Rec: 07/09/24 11:27 SAK [id number]) Out-Patient Physical Therapy Visit Information Visit Information Visit Type Treatment Note Visit Start Time 10:45 Visit Number 32 Evaluation Information Evaluation Date 11/24/23 Precautions Precautions cervical CA PT-OP-B Current Condition Start: 11/24/23 08:48 Freq: Status: Active Protocol: Document 07/09/24 10:39 SAK (Rec: 07/09/24 11:27 SAK [id number]) Current Condition History of Current Condition Onset Date 2+ years Current Complaints lymphedema bilateral LE's History of Current Condition Patient has long history of lymphedema stella LE's, previously seen in this clinic . Discharged from PT after wounds healed, fit for bilateral velcro compression wraps. Patient has now developed multiple new wounds and her lymphedema has worsened. Contributing factors are treatment for pelvic cancer, currently receiving chemotherapy treatments, as well as homelessness and difficulty performing self management program, plus obesity. States she cant bend to put on velcro wraps, has been wearing compression tights: Bioflect. Prior Treatments and Tests prior wound care and lymphedema management PT-OP-C Subjective Start: 11/24/23 08:48 Freq: Status: Active Protocol: Document 07/09/24 10:39 SAK (Rec: 07/09/24 11:27 SAK [id number]) OP-PT Subjective Patient Comments Patient Comments No new c/o. Actually feels up to using Sci-Fit if does before MLD and bandaging. STill has bandaging on from last week. Infusion helped with energy. PT-OP-F Manual Assessment Start: 11/24/23 08:48 Freq: Status: Active Protocol: Document 11/24/23 09:30 SAK (Rec: 11/24/23 16:01 SAK [id number]) Manual Assessments Soft Tissue Assessment Soft Tissue Mobility Assessment hyperkeratosis and fibrosis bilateral lower legs PT-OP-G Mobility & Gait Start: 11/24/23 08:48 Freq: Status: Active Protocol: Document 11/24/23 09:30 SAK (Rec: 11/24/23 16:01 SAK [id number]) OP Gait Assessment Gait Gait Assistance Required: Independent Assistive Devices Assistive Device Front Wheeled Walker Gait Deviations General Gait Pattern Antalgic,Decreased Stride Length,Decreased Feet Clearance Factors Limiting Gait Function Factors Limiting Gait Function Decreased Activity Tolerance, Decreased Strength PT-OP-K Range of Motion Start: 11/24/23 08:48 Freq: Status: Active Protocol: Document 11/24/23 09:30 SAK (Rec: 11/24/23 16:01 [facility] [id number]) Hip Goniometric Range of Motion Hip stella Hip ROM WFL No Comments mod decrease Hip ROM Limitations Hip ROM Limitations Soft Tissue Tightness,Muscle Weakness Knee Goniometric Range of Motion Knee stella Knee ROM WFL No Comments flexion limited by tissue approximation Ankle and Foot Goniometric Range of Motion Ankle and Foot stella Ankle/Foot ROM WFL Yes PT-OP-L Special Tests Start: 11/24/23 08:48 Freq: Status: Active Protocol: Document 11/24/23 09:30 SAK (Rec: 11/24/23 16:02 [facility] [id number]) Special Tests Other Special Tests Special Tests Stemmer sign positive bilaterally PT-OP-M Strength Start: 11/24/23 08:48 Freq: Status: Active Protocol: Document 11/24/23 09:30 SAK (Rec: 11/24/23 16:03 [facility] [id number]) Hip Strength Hip Manual Muscle Testing stella Comments limited to less than 3/5 stella, impacted by both muscle weakness and weight of legs with lymphedema Knee Strength Knee Manual Muscle Testing stella Flexion (S2) 3+ Fair+ Extension (L3) 3+ Fair+ Ankle/Foot Strength Ankle and Foot Manual Muscle Testing stella Dorsiflexion (L4) 4- Good- Plantarflexion (S1) 4- Good- PT-OP-N Lymphedema Start: 11/24/23 08:48 Freq: Status: Active Protocol: Document 07/09/24 10:39 SAK (Rec: 07/09/24 11:27 [facility] [id number]) Lymphedema Measurements Lower Extremity Circumference Measurements Left Affected MT Heads 24.8 cm Mid-foot 25.2 cm Medial Malleolus 32.8 cm 10 cm From Medial Malleolus 48.6 cm 20 cm From Medial Malleolus 61.2 cm 30 cm From Medial Malleolus 66.4 cm 40 cm From Medial Malleolus 75 cm 50 cm From Medial Malleolus 78.8 cm 60 cm From Medial Malleolus 83 cm Knee Joint 75.5 cm right affected MT Heads 25.7 cm Mid-foot 24.4 cm Medial Malleolus 34 cm 10 cm From Medial Malleolus 55.3 cm 20 cm From Medial Malleolus 63 cm 30 cm From Medial Malleolus 76.7 cm 40 cm From Medial Malleolus 76.8 cm 50 cm From Medial Malleolus 77.4 cm 60 cm From Medial Malleolus 77 cm PT-OP-Q Treatments Start: 11/24/23 08:48 Freq: Status: Active Protocol: Document 07/09/24 10:39 SAK (Rec: 07/09/24 11:27 [facility] [id number]) Cardio Equipment Recumbent Stepper (Sci-Fit) Duration (Minutes) 10 Resistance 1 Seat Position 10 Other to facilitate lymphatic flow Therapeutic Activity Therapeutic Activity donning/doffing pants Reps/Minutes 6 Comments min assist Lymphedema Treatment Manual Lymphatic Drainage Location stella LE's Duration 40 Comments Sequential pneumatic pump to each leg 20 min during MLD opposite side. Lymphedema Wrapping Materials Coban lite system toes to knee with cast padding at anterior ankles and crease lower leg. Patient to apply Bioflect after wound care at 2:00 today . Sequential Lymphedema Exercises Comments stella LEs and trunk, UE's to facilitate lymphatic flow Compression Garment Assessment Compression Garment Assessment Details Has been ordered through [employer] Other Other application of Cetaphil lotion after MLD stella le's PT-OP-R Modalities Start: 11/24/23 08:48 Freq: Status: Active Protocol: Document 07/09/24 10:39 [facility] (Rec: 07/09/24 11:27 [facility] [id number]) Compression Pump Treatment Treatment Location stella LEs Pressure Amount (mmHg) (mmHG) 45 Inflation Time (Seconds) 30 Deflation Time (Seconds) 5 Treatment Tolerance Good Treatment Comments during MLD opp LE PT-OP-T Assessment and Plan Start: 11/24/23 08:48 Freq: Status: Active Protocol: Document 07/09/24 10:39 SAK (Rec: 07/09/24 11:27 [facility] [id number]) Physical Therapy Assessment Impairments Impairments Activity Tolerance,Edema,Gait, Soft Tissue Mobility Goals Two Impairment Lymphedema life impact scale score 34% Short Term Goal (STG) Decrease score to no greater than24% as measure of improved activity tolerance and quality of life 01/26/24: 30% 02/16/24: dec to 25% 05/22/24: score 23% STG Duration 06/29/24 Intermediate Goal (LTG) Decrease lymphedema life impact scale score to no greater than 15% as measure of improved ability to self manage her lymphedema and improved quality of life LTG Duration 08/17/24 One Impairment lymphedema stella LE's Short Term Goal (STG) Instruct and review all aspects of lymphedema care including skin care, manual lymphatic drainage and use of her lymphedema pump, compression, exercise, and elevation. 01/26/24: goal met STG Duration goal met Intermediate Goal (LTG) Patient to be able to self manage all aspects of her lymphedema including donning and doffing appropriate compression garments and use of sequential pneumatic pump 02/16/24: goal progress, still has challenged with donning Bioflect compression tights and is poorlycompliant to wearing velcro compression wraps on knees due to difficulty. 05/18/24: Did not bring wraps today, unable to don independently. Has worn Bioflect a few times since last seen but is exhausted by donning. Has been in hotel 1x since last seen and was then able to use pump. Is on list for affordable housing but hasn't heard anything; living in car which makes management of lymphedema very challenging . LTG Duration 08/17/24 Three Impairment gait impairment Impairment uses FWW and doesn't go out of the house other than for medical appointments Intermediate Goal (LTG) Patient able to ambulate for at least 10 minutes with least restrictive device 01/26/24: continues to use 4WW but limited activity tolerance due to cancer fatigue. 02/16/24: goal progress, and just this week has been able to resume Sci-Fit recumbant elliptical due to decreased weight of legs, improved activity tolerance. Can walk for 4 min max before requiring a rest. 05/18/24: tries to take a walk at least couple times per day LTG Duration 08/17/24 Progress Towards Goals Progress Towards Goals Slow Progress due to Activity Tolerance,Slow Progress due to Medical Issues,Slow Progress - Other Progress Comments financial limitations unhoused status active cancer of uterus Assessment Summary Assessment Improvement in most circumferential measurements today, still some weaping posterior right LE, seeing wound care after PT. Dressing still in place left medial distal leg. Physical Therapy Plan Frequency and Duration Frequency of Treatment 20 visits Duration of treatment (weeks) 12 Plan of Care Start Date 05/18/24 Plan of Care End Date 08/17/24 Therapeutic Interventions Therapeutic Interventions Gait Training,Home Exercise Program,Lymphedema Management, Manual Therapy,Patient/ Caregiver Education,Self-Care/ Home Management,Soft Tissue Mobilization,Therapeutic Activities Modalities Vasopneumatic Devices Next Visit Focus/Plan Next Note Type Treatment Note Next Visit Plan Continue CDT, monitor for wounds, provide education.
--- NOTE | 2024-07-12 11:26 | PT.OTN ---
Current Diagnoses Lymphedema, not elsewhere classified (07/12/24) Physical Therapy Treatment Note PT-OP-A Visit Information Start: 11/24/23 08:48 Freq: Status: Active Protocol: Document 07/12/24 10:44 SAK (Rec: 07/12/24 11:13 SAK [id number]) Out-Patient Physical Therapy Visit Information Visit Information Visit Type Treatment Note Visit Start Time 10:45 Visit Stop Time 12:15 Visit Number [id number] Evaluation Information Evaluation Date 11/24/23 Precautions Precautions cervical CA PT-OP-B Current Condition Start: 11/24/23 08:48 Freq: Status: Active Protocol: Document 07/12/24 10:44 SAK (Rec: 07/12/24 11:13 SAK [id number]) Current Condition History of Current Condition Onset Date 2+ years Current Complaints lymphedema bilateral LE's History of Current Condition Patient has long history of lymphedema stella LE's, previously seen in this clinic . Discharged from PT after wounds healed, fit for bilateral velcro compression wraps. Patient has now developed multiple new wounds and her lymphedema has worsened. Contributing factors are treatment for pelvic cancer, currently receiving chemotherapy treatments, as well as homelessness and difficulty performing self management program, plus obesity. States she cant bend to put on velcro wraps, has been wearing compression tights: Bioflect. Prior Treatments and Tests prior wound care and lymphedema management PT-OP-C Subjective Start: 11/24/23 08:48 Freq: Status: Active Protocol: Document 07/12/24 10:44 SAK (Rec: 07/12/24 11:13 SAK [id number]) OP-PT Subjective Patient Comments Patient Comments Patient reports she has an infection posterior left leg common with people who are immunocompromised (Dr. Schrader reports pseudomonas infection to PT). Patient eing referred to infectious disease doctor. Just saw wound care had her left lower leg wound bandaged after vinegar wash. Forgot to bring velcro compression wraps as requested by PT. Did get new shoes, hasn't tried on yet. PT-OP-F Manual Assessment Start: 11/24/23 08:48 Freq: Status: Active Protocol: Document 11/24/23 09:30 SAK (Rec: 11/24/23 16:01 SAK [id number]) Manual Assessments Soft Tissue Assessment Soft Tissue Mobility Assessment hyperkeratosis and fibrosis bilateral lower legs PT-OP-G Mobility & Gait Start: 11/24/23 08:48 Freq: Status: Active Protocol: Document 11/24/23 09:30 SAK (Rec: 11/24/23 16:01 [facility] [id number]) OP Gait Assessment Gait Gait Assistance Required: Independent Assistive Devices Assistive Device Front Wheeled Walker Gait Deviations General Gait Pattern Antalgic,Decreased Stride Length,Decreased Feet Clearance Factors Limiting Gait Function Factors Limiting Gait Function Decreased Activity Tolerance, Decreased Strength PT-OP-K Range of Motion Start: 11/24/23 08:48 Freq: Status: Active Protocol: Document 11/24/23 09:30 SAK (Rec: 11/24/23 16:01 SAK [id number]) Hip Goniometric Range of Motion Hip stella Hip ROM WFL No Comments mod decrease Hip ROM Limitations Hip ROM Limitations Soft Tissue Tightness,Muscle Weakness Knee Goniometric Range of Motion Knee stella Knee ROM WFL No Comments flexion limited by tissue approximation Ankle and Foot Goniometric Range of Motion Ankle and Foot stella Ankle/Foot ROM WFL Yes PT-OP-L Special Tests Start: 11/24/23 08:48 Freq: Status: Active Protocol: Document 11/24/23 09:30 SAK (Rec: 11/24/23 16:02 SAK [id number]) Special Tests Other Special Tests Special Tests Stemmer sign positive bilaterally PT-OP-M Strength Start: 11/24/23 08:48 Freq: Status: Active Protocol: Document 11/24/23 09:30 SAK (Rec: 11/24/23 16:03 SAK [id number]) Hip Strength Hip Manual Muscle Testing stella Comments limited to less than 3/5 stella, impacted by both muscle weakness and weight of legs with lymphedema Knee Strength Knee Manual Muscle Testing stella Flexion (S2) 3+ Fair+ Extension (L3) 3+ Fair+ Ankle/Foot Strength Ankle and Foot Manual Muscle Testing stella Dorsiflexion (L4) 4- Good- Plantarflexion (S1) 4- Good- PT-OP-N Lymphedema Start: 11/24/23 08:48 Freq: Status: Active Protocol: Document 07/12/24 10:44 SAK (Rec: 07/12/24 11:13 SAK [id number]) Lymphedema Measurements Lower Extremity Circumference Measurements Left Affected MT Heads 24.3 cm Mid-foot 24.5 cm Medial Malleolus 34.3 cm 10 cm From Medial Malleolus 50.7 cm 20 cm From Medial Malleolus 62.8 cm 30 cm From Medial Malleolus 72.8 cm 40 cm From Medial Malleolus 79.8 cm 50 cm From Medial Malleolus 75.7 cm 60 cm From Medial Malleolus 83.6 cm Knee Joint 74.6 cm - measuring over bandages at 20 cm barbara, left LE warm to touch right affected - Not measured today, focused on treatment. PT-OP-Q Treatments Start: 11/24/23 08:48 Freq: Status: Active Protocol: Document 07/12/24 10:44 SAK (Rec: 07/12/24 11:13 [facility] [id number]) Cardio Equipment Recumbent Stepper (Sci-Fit) Duration (Minutes) 10 Resistance 1 Seat Position 10 Other to facilitate lymphatic flow Therapeutic Activity Therapeutic Activity donning/doffing pants Reps/Minutes 3 Comments min assist donning Lymphedema Treatment Manual Lymphatic Drainage Location right LE, left proximal LE Duration 40 Comments Sequential pneumatic pump on right duringt MLDE proxinal left. No pump left only due to newly diagnosed infection left distal LE Lymphedema Wrapping Materials Coban lite system toes to knee with cast padding at anterior ankles and crease lower leg. Patient to apply Bioflect after wound care at 2:00 today . Sequential Lymphedema Exercises Comments stella LEs and trunk, UE's to facilitate lymphatic flow Compression Garment Assessment Compression Garment Assessment Details patient forgot to bring compression wraps. Other Other application of Cetaphil lotion after MLD stella le's PT-OP-R Modalities Start: 11/24/23 08:48 Freq: Status: Active Protocol: Document 07/12/24 10:44 SAK (Rec: 07/12/24 11:13 [facility] [id number]) Compression Pump Treatment Treatment Location stella LEs Pressure Amount (mmHg) (mmHG) 45 Inflation Time (Seconds) 30 Deflation Time (Seconds) 5 Treatment Tolerance Good Treatment Comments right LE during MLD left LE, trunk clearing PT-OP-T Assessment and Plan Start: 11/24/23 08:48 Freq: Status: Active Protocol: Document 07/12/24 10:44 SAK (Rec: 07/12/24 11:13 SAK [id number]) Physical Therapy Assessment Impairments Impairments Activity Tolerance,Edema,Gait, Soft Tissue Mobility Goals Two Impairment Lymphedema life impact scale score 34% Short Term Goal (STG) Decrease score to no greater than24% as measure of improved activity tolerance and quality of life 01/26/24: 30% 02/16/24: dec to 25% 05/22/24: score 23% STG Duration 06/29/24 Prison Goal (LTG) Decrease lymphedema life impact scale score to no greater than 15% as measure of improved ability to self manage her lymphedema and improved quality of life LTG Duration 08/17/24 One Impairment lymphedema stella LE's Short Term Goal (STG) Instruct and review all aspects of lymphedema care including skin care, manual lymphatic drainage and use of her lymphedema pump, compression, exercise, and elevation. 01/26/24: goal met STG Duration goal met Traffic Control Signaler Goal (LTG) Patient to be able to self manage all aspects of her lymphedema including donning and doffing appropriate compression garments and use of sequential pneumatic pump 02/16/24: goal progress, still has challenged with donning Bioflect compression tights and is poorlycompliant to wearing velcro compression wraps on knees due to difficulty. 05/18/24: Did not bring wraps today, unable to don independently. Has worn Bioflect a few times since last seen but is exhausted by donning. Has been in hotel 1x since last seen and was then able to use pump. Is on list for affordable housing but hasn't heard anything; living in car which makes management of lymphedema very challenging . LTG Duration 08/17/24 Three Impairment gait impairment Impairment uses FWW and doesn't go out of the house other than for medical appointments Traffic Control Signaler Goal (LTG) Patient able to ambulate for at least 10 minutes with least restrictive device 01/26/24: continues to use 4WW but limited activity tolerance due to cancer fatigue. 02/16/24: goal progress, and just this week has been able to resume Sci-Fit recumbant elliptical due to decreased weight of legs, improved activity tolerance. Can walk for 4 min max before requiring a rest. 05/18/24: tries to take a walk at least couple times per day LTG Duration 08/17/24 Progress Towards Goals Progress Towards Goals Slow Progress due to Activity Tolerance,Slow Progress due to Medical Issues,Slow Progress - Other Progress Comments financial limitations unhoused status active cancer of uterus Assessment Summary Assessment Reddened left lower leg with wound care badage in place. PT treatment modified for MLD and pump for right LE and MLD only left proximal LE with trunk clearing. Ther ex encouraged, Sci-Fit end of session. Unable to work on appliction of velcro compression wraps due to patient forgetting today. Physical Therapy Plan Frequency and Duration Frequency of Treatment 20 visits Duration of treatment (weeks) 12 Plan of Care Start Date 05/18/24 Plan of Care End Date 08/17/24 Therapeutic Interventions Therapeutic Interventions Gait Training,Home Exercise Program,Lymphedema Management, Manual Therapy,Patient/ Caregiver Education,Self-Care/ Home Management,Soft Tissue Mobilization,Therapeutic Activities Modalities Vasopneumatic Devices Next Visit Focus/Plan Next Note Type Treatment Note Next Visit Plan Continue CDT as able given medical issues, patient to bring velcro compression wraps
--- NOTE | 2024-07-23 12:15 | PT.OTN ---
Current Diagnoses Lymphedema, not elsewhere classified (07/23/24) Physical Therapy Treatment Note PT-OP-A Visit Information Start: 11/24/23 08:48 Freq: Status: Active Protocol: Document 07/23/24 10:44 SAK (Rec: 07/23/24 12:10 SAK [id number]) Out-Patient Physical Therapy Visit Information Visit Information Visit Type Treatment Note Visit Start Time 10:46 Visit Stop Time 12:14 Visit Number [id number] Evaluation Information Evaluation Date 11/24/23 PT-OP-B Current Condition Start: 11/24/23 08:48 Freq: Status: Active Protocol: Document 07/23/24 10:44 SAK (Rec: 07/23/24 12:10 SAK [id number]) Current Condition History of Current Condition Onset Date 2+ years Current Complaints lymphedema bilateral LE's History of Current Condition Patient has long history of lymphedema stella LE's, previously seen in this clinic . Discharged from PT after wounds healed, fit for bilateral velcro compression wraps. Patient has now developed multiple new wounds and her lymphedema has worsened. Contributing factors are treatment for pelvic cancer, currently receiving chemotherapy treatments, as well as homelessness and difficulty performing self management program, plus obesity. States she cant bend to put on velcro wraps, has been wearing compression tights: Bioflect. Prior Treatments and Tests prior wound care and lymphedema management PT-OP-C Subjective Start: 11/24/23 08:48 Freq: Status: Active Protocol: Document 07/23/24 10:44 SAK (Rec: 07/23/24 12:10 SAK [id number]) OP-PT Subjective Patient Comments Patient Comments Was at [facility] for 4 days due to pseudomonas infection. Discharged home 1 week ago. Saw wound care prior to PT, used used Hydroform blue and other wound care dressing. States it looked better per wound care. PT-OP-F Manual Assessment Start: 11/24/23 08:48 Freq: Status: Active Protocol: Document 11/24/23 09:30 SAK (Rec: 11/24/23 16:01 SAK [id number]) Manual Assessments Soft Tissue Assessment Soft Tissue Mobility Assessment hyperkeratosis and fibrosis bilateral lower legs PT-OP-G Mobility & Gait Start: 11/24/23 08:48 Freq: Status: Active Protocol: Document 11/24/23 09:30 SAK (Rec: 11/24/23 16:01 [facility] [id number]) OP Gait Assessment Gait Gait Assistance Required: Independent Assistive Devices Assistive Device Front Wheeled Walker Gait Deviations General Gait Pattern Antalgic,Decreased Stride Length,Decreased Feet Clearance Factors Limiting Gait Function Factors Limiting Gait Function Decreased Activity Tolerance, Decreased Strength PT-OP-K Range of Motion Start: 11/24/23 08:48 Freq: Status: Active Protocol: Document 11/24/23 09:30 SAK (Rec: 11/24/23 16:01 [facility] [id number]) Hip Goniometric Range of Motion Hip stella Hip ROM WFL No Comments mod decrease Hip ROM Limitations Hip ROM Limitations Soft Tissue Tightness,Muscle Weakness Knee Goniometric Range of Motion Knee stella Knee ROM WFL No Comments flexion limited by tissue approximation Ankle and Foot Goniometric Range of Motion Ankle and Foot stella Ankle/Foot ROM WFL Yes PT-OP-L Special Tests Start: 11/24/23 08:48 Freq: Status: Active Protocol: Document 11/24/23 09:30 [facility] (Rec: 11/24/23 16:02 [facility] [id number]) Special Tests Other Special Tests Special Tests Stemmer sign positive bilaterally PT-OP-M Strength Start: 11/24/23 08:48 Freq: Status: Active Protocol: Document 11/24/23 09:30 SAK (Rec: 11/24/23 16:03 [facility] [id number]) Hip Strength Hip Manual Muscle Testing stella Comments limited to less than 3/5 stella, impacted by both muscle weakness and weight of legs with lymphedema Knee Strength Knee Manual Muscle Testing stella Flexion (S2) 3+ Fair+ Extension (L3) 3+ Fair+ Ankle/Foot Strength Ankle and Foot Manual Muscle Testing stella Dorsiflexion (L4) 4- Good- Plantarflexion (S1) 4- Good- PT-OP-N Lymphedema Start: 11/24/23 08:48 Freq: Status: Active Protocol: Document 07/23/24 10:44 SAK (Rec: 07/23/24 12:10 [facility] [id number]) Lymphedema Measurements Lower Extremity Circumference Measurements Left Affected MT Heads 24.3 cm Mid-foot 24.5 cm Medial Malleolus 31.5 cm 10 cm From Medial Malleolus 48.2 cm 20 cm From Medial Malleolus 56.4 cm 30 cm From Medial Malleolus 66.2 cm 40 cm From Medial Malleolus 75 cm 50 cm From Medial Malleolus 73.6 cm 60 cm From Medial Malleolus 80 cm Knee Joint 67.5 cm right affected MT Heads 26.4 cm Mid-foot 25.1 cm Medial Malleolus 31.8 cm 10 cm From Medial Malleolus 50.3 cm 20 cm From Medial Malleolus 60.7 cm 30 cm From Medial Malleolus 72.8 cm 40 cm From Medial Malleolus 76.7 cm 50 cm From Medial Malleolus 76.2 cm 60 cm From Medial Malleolus 74.7 cm Knee Joint 76.7 cm PT-OP-Q Treatments Start: 11/24/23 08:48 Freq: Status: Active Protocol: Document 07/23/24 10:44 [facility] (Rec: 07/23/24 12:10 [facility] [id number]) Lymphedema Treatment Manual Lymphatic Drainage Location right LE, left proximal LE Duration 40 Comments Sequential pneumatic pump on right duringt MLDE proxinal left. No pump left only due to newly diagnosed infection left distal LE Lymphedema Wrapping Materials Coban lite system toes to knee with cast padding at anterior ankles and crease lower leg. Patient to apply Bioflect after wound care at 2:00 today . Sequential Lymphedema Exercises Comments stella LEs and trunk, UE's to facilitate lymphatic flow Compression Garment Assessment Compression Garment Assessment Details patient forgot to bring compression wraps. Other Other application of Cetaphil lotion after MLD stella le's PT-OP-R Modalities Start: 11/24/23 08:48 Freq: Status: Active Protocol: Document 07/23/24 10:44 [facility] (Rec: 07/23/24 12:15 [facility] [id number]) Compression Pump Treatment Treatment Location stella LEs Pressure Amount (mmHg) (mmHG) 45 Inflation Time (Seconds) 30 Deflation Time (Seconds) 5 Treatment Tolerance Good Treatment Comments right LE during MLD left LE, trunk clearing PT-OP-T Assessment and Plan Start: 11/24/23 08:48 Freq: Status: Active Protocol: Document 07/23/24 10:44 SAK (Rec: 07/23/24 12:15 [facility] [id number]) Physical Therapy Assessment Impairments Impairments Activity Tolerance,Edema,Gait, Soft Tissue Mobility Goals Two Impairment Lymphedema life impact scale score 34% Short Term Goal (STG) Decrease score to no greater than24% as measure of improved activity tolerance and quality of life 01/26/24: 30% 02/16/24: dec to 25% 05/22/24: score 23% STG Duration 06/29/24 Deal Architect Goal (LTG) Decrease lymphedema life impact scale score to no greater than 15% as measure of improved ability to self manage her lymphedema and improved quality of life LTG Duration 08/17/24 One Impairment lymphedema stella LE's Short Term Goal (STG) Instruct and review all aspects of lymphedema care including skin care, manual lymphatic drainage and use of her lymphedema pump, compression, exercise, and elevation. 01/26/24: goal met STG Duration goal met Deal Architect Goal (LTG) Patient to be able to self manage all aspects of her lymphedema including donning and doffing appropriate compression garments and use of sequential pneumatic pump 02/16/24: goal progress, still has challenged with donning Bioflect compression tights and is poorlycompliant to wearing velcro compression wraps on knees due to difficulty. 05/18/24: Did not bring wraps today, unable to don independently. Has worn Bioflect a few times since last seen but is exhausted by donning. Has been in hotel 1x since last seen and was then able to use pump. Is on list for affordable housing but hasn't heard anything; living in car which makes management of lymphedema very challenging . LTG Duration 08/17/24 Three Impairment gait impairment Impairment uses FWW and doesn't go out of the house other than for medical appointments Retirement Goal (LTG) Patient able to ambulate for at least 10 minutes with least restrictive device 01/26/24: continues to use 4WW but limited activity tolerance due to cancer fatigue. 02/16/24: goal progress, and just this week has been able to resume Sci-Fit recumbant elliptical due to decreased weight of legs, improved activity tolerance. Can walk for 4 min max before requiring a rest. 05/18/24: tries to take a walk at least couple times per day LTG Duration 08/17/24 Progress Towards Goals Progress Towards Goals Slow Progress due to Activity Tolerance,Slow Progress due to Medical Issues,Slow Progress - Other Progress Comments financial limitations unhoused status active cancer of uterus Assessment Summary Assessment Improved circumferential measurements significantly s/p hospitalizastion with IV antibiotics. Saw wound care today immediately prior to PT, patient reporting wounds much improved. Patient again forgot compression wraps, says she will bring to next appointment. Physical Therapy Plan Frequency and Duration Frequency of Treatment 20 visits Duration of treatment (weeks) 12 Plan of Care Start Date 05/18/24 Plan of Care End Date 08/17/24 Therapeutic Interventions Therapeutic Interventions Gait Training,Home Exercise Program,Lymphedema Management, Manual Therapy,Patient/ Caregiver Education,Self-Care/ Home Management,Soft Tissue Mobilization,Therapeutic Activities Modalities Vasopneumatic Devices Next Visit Focus/Plan Next Note Type Treatment Note Next Visit Plan Continue CDT as able given medical issues, patient to bring velcro compression wraps
--- NOTE | 2024-07-25 12:11 | PT.OTN ---
Current Diagnoses Lymphedema, not elsewhere classified (07/25/24) Physical Therapy Treatment Note PT-OP-A Visit Information Start: 11/24/23 08:48 Freq: Status: Active Protocol: Document 07/25/24 10:24 SAK (Rec: 07/25/24 10:53 [facility] [id number]) Out-Patient Physical Therapy Visit Information Visit Information Visit Type Treatment Note Visit Start Time 10:24 Visit Stop Time 12:06 Visit Number [id number] Evaluation Information Evaluation Date 11/24/23 PT-OP-B Current Condition Start: 11/24/23 08:48 Freq: Status: Active Protocol: Document 07/25/24 10:24 SAK (Rec: 07/25/24 10:53 [facility] [id number]) Current Condition History of Current Condition Onset Date 2+ years Current Complaints lymphedema bilateral LE's History of Current Condition Patient has long history of lymphedema stella LE's, previously seen in this clinic . Discharged from PT after wounds healed, fit for bilateral velcro compression wraps. Patient has now developed multiple new wounds and her lymphedema has worsened. Contributing factors are treatment for pelvic cancer, currently receiving chemotherapy treatments, as well as homelessness and difficulty performing self management program, plus obesity. States she cant bend to put on velcro wraps, has been wearing compression tights: Bioflect. Prior Treatments and Tests prior wound care and lymphedema management PT-OP-C Subjective Start: 11/24/23 08:48 Freq: Status: Active Protocol: Document 07/25/24 10:24 SAK (Rec: 07/25/24 10:53 [facility] [id number]) OP-PT Subjective Patient Comments Patient Comments Went for CT scan yesterday, got lightheaded, was taken to ER, BP very low due to allergic reaction to iodine and dehdration; had epi pen, steroids, IV fluids. There 5 hours. Feels ok but very tired today. Saw wound care just prior to PT, states they told her things are slowly improving. Also reports more vaginal bleeding recently. PT-OP-F Manual Assessment Start: 11/24/23 08:48 Freq: Status: Active Protocol: Document 11/24/23 09:30 SAK (Rec: 11/24/23 16:01 SAK [id number]) Manual Assessments Soft Tissue Assessment Soft Tissue Mobility Assessment hyperkeratosis and fibrosis bilateral lower legs PT-OP-G Mobility & Gait Start: 11/24/23 08:48 Freq: Status: Active Protocol: Document 11/24/23 09:30 SAK (Rec: 11/24/23 16:01 [facility] [id number]) OP Gait Assessment Gait Gait Assistance Required: Independent Assistive Devices Assistive Device Front Wheeled Walker Gait Deviations General Gait Pattern Antalgic,Decreased Stride Length,Decreased Feet Clearance Factors Limiting Gait Function Factors Limiting Gait Function Decreased Activity Tolerance, Decreased Strength PT-OP-K Range of Motion Start: 11/24/23 08:48 Freq: Status: Active Protocol: Document 11/24/23 09:30 SAK (Rec: 11/24/23 16:01 [facility] [id number]) Hip Goniometric Range of Motion Hip stella Hip ROM WFL No Comments mod decrease Hip ROM Limitations Hip ROM Limitations Soft Tissue Tightness,Muscle Weakness Knee Goniometric Range of Motion Knee stella Knee ROM WFL No Comments flexion limited by tissue approximation Ankle and Foot Goniometric Range of Motion Ankle and Foot stella Ankle/Foot ROM WFL Yes PT-OP-L Special Tests Start: 11/24/23 08:48 Freq: Status: Active Protocol: Document 11/24/23 09:30 SAK (Rec: 11/24/23 16:02 [facility] [id number]) Special Tests Other Special Tests Special Tests Stemmer sign positive bilaterally PT-OP-M Strength Start: 11/24/23 08:48 Freq: Status: Active Protocol: Document 11/24/23 09:30 SAK (Rec: 11/24/23 16:03 [facility] [id number]) Hip Strength Hip Manual Muscle Testing stella Comments limited to less than 3/5 stella, impacted by both muscle weakness and weight of legs with lymphedema Knee Strength Knee Manual Muscle Testing stella Flexion (S2) 3+ Fair+ Extension (L3) 3+ Fair+ Ankle/Foot Strength Ankle and Foot Manual Muscle Testing stella Dorsiflexion (L4) 4- Good- Plantarflexion (S1) 4- Good- PT-OP-N Lymphedema Start: 11/24/23 08:48 Freq: Status: Active Protocol: Document 07/25/24 10:24 SAK (Rec: 07/25/24 10:53 [facility] [id number]) Lymphedema Measurements Lower Extremity Circumference Measurements Left Affected MT Heads 24.6 cm Mid-foot 24.6 cm Medial Malleolus 32 cm 10 cm From Medial Malleolus 48.2 cm 20 cm From Medial Malleolus 54.2 cm 30 cm From Medial Malleolus 63.3 cm 40 cm From Medial Malleolus 72.3 cm 50 cm From Medial Malleolus 73 cm 60 cm From Medial Malleolus 77.7 cm Knee Joint 67 cm right affected MT Heads 25.9 cm Mid-foot 24.5 cm Medial Malleolus 31.7 cm 10 cm From Medial Malleolus 52.3 cm 20 cm From Medial Malleolus 59.2 cm 30 cm From Medial Malleolus 69 cm 40 cm From Medial Malleolus 77.4 cm 50 cm From Medial Malleolus 74.8 cm 60 cm From Medial Malleolus 75.5 cm Knee Joint 75.3 cm PT-OP-Q Treatments Start: 11/24/23 08:48 Freq: Status: Active Protocol: Document 07/25/24 10:24 [facility] (Rec: 07/25/24 10:53 [facility] [id number]) Cardio Equipment Recumbent Stepper (Sci-Fit) Duration (Minutes) 10 Resistance 1 Seat Position 10 Other to facilitate lymphatic flow Therapeutic Activity Therapeutic Activity transfer sit to supine Comments SBA today donning/doffing pants Reps/Minutes 3 Comments min assist donning Lymphedema Treatment Manual Lymphatic Drainage Location right LE, left proximal LE Duration 40 Comments Sequential pneumatic pump on right duringt MLDE proxinal left. No pump left only due to newly diagnosed infection left distal LE Lymphedema Wrapping Materials Coban lite system toes to knee with cast padding at anterior ankles and crease lower leg. Patient to apply Bioflect after wound care at 2:00 today . Sequential Lymphedema Exercises Comments stella LEs and trunk, UE's to facilitate lymphatic flow Compression Garment Assessment Compression Garment Assessment Details patient forgot to bring compression wraps. PT-OP-R Modalities Start: 11/24/23 08:48 Freq: Status: Active Protocol: Document 07/25/24 10:24 [facility] (Rec: 07/25/24 10:53 [facility] [id number]) Compression Pump Treatment Treatment Location stella LEs Pressure Amount (mmHg) (mmHG) 45 Inflation Time (Seconds) 30 Deflation Time (Seconds) 5 Treatment Tolerance Good Treatment Comments right LE during MLD left LE, trunk clearing right LE Pressure Amount (mmHg) (mmHG) 45 Inflation Time (Seconds) 10 Deflation Time (Seconds) 5 Treatment Tolerance Good Treatment Comments during MLD proximal and left LE: PT-OP-T Assessment and Plan Start: 11/24/23 08:48 Freq: Status: Active Protocol: Document 07/25/24 10:24 [facility] (Rec: 07/25/24 10:53 [facility] [id number]) Physical Therapy Assessment Impairments Impairments Activity Tolerance,Edema,Gait, Soft Tissue Mobility Goals Two Impairment Lymphedema life impact scale score 34% Short Term Goal (STG) Decrease score to no greater than24% as measure of improved activity tolerance and quality of life 01/26/24: 30% 02/16/24: dec to 25% 05/22/24: score 23% STG Duration 06/29/24 Snf Goal (LTG) Decrease lymphedema life impact scale score to no greater than 15% as measure of improved ability to self manage her lymphedema and improved quality of life LTG Duration 08/17/24 One Impairment lymphedema stella LE's Short Term Goal (STG) Instruct and review all aspects of lymphedema care including skin care, manual lymphatic drainage and use of her lymphedema pump, compression, exercise, and elevation. 01/26/24: goal met STG Duration goal met Cardiology Coordinator Goal (LTG) Patient to be able to self manage all aspects of her lymphedema including donning and doffing appropriate compression garments and use of sequential pneumatic pump 02/16/24: goal progress, still has challenged with donning Bioflect compression tights and is poorlycompliant to wearing velcro compression wraps on knees due to difficulty. 05/18/24: Did not bring wraps today, unable to don independently. Has worn Bioflect a few times since last seen but is exhausted by donning. Has been in hotel 1x since last seen and was then able to use pump. Is on list for affordable housing but hasn't heard anything; living in car which makes management of lymphedema very challenging . LTG Duration 08/17/24 Three Impairment gait impairment Impairment uses FWW and doesn't go out of the house other than for medical appointments Cardiology Coordinator Goal (LTG) Patient able to ambulate for at least 10 minutes with least restrictive device 01/26/24: continues to use 4WW but limited activity tolerance due to cancer fatigue. 02/16/24: goal progress, and just this week has been able to resume Sci-Fit recumbant elliptical due to decreased weight of legs, improved activity tolerance. Can walk for 4 min max before requiring a rest. 05/18/24: tries to take a walk at least couple times per day LTG Duration 08/17/24 Progress Towards Goals Progress Towards Goals Slow Progress due to Activity Tolerance,Slow Progress due to Medical Issues,Slow Progress - Other Progress Comments financial limitations unhoused status active cancer of uterus Assessment Summary Assessment Mostly improved circumferential measurements today, likely due to increased time on back in ER, steroids Physical Therapy Plan Frequency and Duration Frequency of Treatment 20 visits Duration of treatment (weeks) 12 Plan of Care Start Date 05/18/24 Plan of Care End Date 08/17/24 Therapeutic Interventions Therapeutic Interventions Gait Training,Home Exercise Program,Lymphedema Management, Manual Therapy,Patient/ Caregiver Education,Self-Care/ Home Management,Soft Tissue Mobilization,Therapeutic Activities Modalities Vasopneumatic Devices Next Visit Focus/Plan Next Note Type Treatment Note Next Visit Plan Continue CDT as able given medical issues, patient to bring velcro compression wraps
--- NOTE | 2024-07-30 12:19 | PT.OTN ---
Current Diagnoses Lymphedema, not elsewhere classified (07/30/24) Physical Therapy Treatment Note PT-OP-A Visit Information Start: 11/24/23 08:48 Freq: Status: Active Protocol: Document 07/30/24 10:37 SAK (Rec: 07/30/24 11:21 SAK [id number]) Out-Patient Physical Therapy Visit Information Visit Information Visit Type Treatment Note Visit Start Time 10:45 Visit Number [id number] Evaluation Information Evaluation Date 11/24/23 PT-OP-B Current Condition Start: 11/24/23 08:48 Freq: Status: Active Protocol: Document 07/30/24 10:37 SAK (Rec: 07/30/24 11:21 SAK [id number]) Current Condition History of Current Condition Onset Date 2+ years Current Complaints lymphedema bilateral LE's History of Current Condition Patient has long history of lymphedema stella LE's, previously seen in this clinic . Discharged from PT after wounds healed, fit for bilateral velcro compression wraps. Patient has now developed multiple new wounds and her lymphedema has worsened. Contributing factors are treatment for pelvic cancer, currently receiving chemotherapy treatments, as well as homelessness and difficulty performing self management program, plus obesity. States she cant bend to put on velcro wraps, has been wearing compression tights: Bioflect. Prior Treatments and Tests prior wound care and lymphedema management PT-OP-C Subjective Start: 11/24/23 08:48 Freq: Status: Active Protocol: Document 07/30/24 10:37 SAK (Rec: 07/30/24 11:21 [facility] [id number]) OP-PT Subjective Patient Comments Patient Comments Spent 3 days in hotel over the weekend, swelling went down due to able to elevate high and use pump daily. Just saw wound care, is now on surveillance due to all wounds healed. Can't find compression wraps in her car. PT-OP-F Manual Assessment Start: 11/24/23 08:48 Freq: Status: Active Protocol: Document 11/24/23 09:30 SAK (Rec: 11/24/23 16:01 SAK [id number]) Manual Assessments Soft Tissue Assessment Soft Tissue Mobility Assessment hyperkeratosis and fibrosis bilateral lower legs PT-OP-G Mobility & Gait Start: 11/24/23 08:48 Freq: Status: Active Protocol: Document 11/24/23 09:30 SAK (Rec: 11/24/23 16:01 [facility] [id number]) OP Gait Assessment Gait Gait Assistance Required: Independent Assistive Devices Assistive Device Front Wheeled Walker Gait Deviations General Gait Pattern Antalgic,Decreased Stride Length,Decreased Feet Clearance Factors Limiting Gait Function Factors Limiting Gait Function Decreased Activity Tolerance, Decreased Strength PT-OP-K Range of Motion Start: 11/24/23 08:48 Freq: Status: Active Protocol: Document 11/24/23 09:30 SAK (Rec: 11/24/23 16:01 [facility] [id number]) Hip Goniometric Range of Motion Hip stella Hip ROM WFL No Comments mod decrease Hip ROM Limitations Hip ROM Limitations Soft Tissue Tightness,Muscle Weakness Knee Goniometric Range of Motion Knee stella Knee ROM WFL No Comments flexion limited by tissue approximation Ankle and Foot Goniometric Range of Motion Ankle and Foot stella Ankle/Foot ROM WFL Yes PT-OP-L Special Tests Start: 11/24/23 08:48 Freq: Status: Active Protocol: Document 11/24/23 09:30 [facility] (Rec: 11/24/23 16:02 [facility] [id number]) Special Tests Other Special Tests Special Tests Stemmer sign positive bilaterally PT-OP-M Strength Start: 11/24/23 08:48 Freq: Status: Active Protocol: Document 11/24/23 09:30 SAK (Rec: 11/24/23 16:03 [facility] [id number]) Hip Strength Hip Manual Muscle Testing stella Comments limited to less than 3/5 stella, impacted by both muscle weakness and weight of legs with lymphedema Knee Strength Knee Manual Muscle Testing stella Flexion (S2) 3+ Fair+ Extension (L3) 3+ Fair+ Ankle/Foot Strength Ankle and Foot Manual Muscle Testing stella Dorsiflexion (L4) 4- Good- Plantarflexion (S1) 4- Good- PT-OP-N Lymphedema Start: 11/24/23 08:48 Freq: Status: Active Protocol: Document 07/30/24 10:37 SAK (Rec: 07/30/24 11:21 [facility] [id number]) Lymphedema Measurements Lower Extremity Circumference Measurements Left Affected MT Heads 24.6 cm Mid-foot 25.5 cm Medial Malleolus 33.5 cm 10 cm From Medial Malleolus 47.7 cm 20 cm From Medial Malleolus 55.7 cm 30 cm From Medial Malleolus 57.8 cm 40 cm From Medial Malleolus 68.7 cm 50 cm From Medial Malleolus 70 cm 60 cm From Medial Malleolus 72.8 cm Knee Joint 58.5 cm right affected MT Heads 25.7 cm Mid-foot 25.7 cm Medial Malleolus 34 cm 10 cm From Medial Malleolus 53.8 cm 20 cm From Medial Malleolus 59.6 cm 30 cm From Medial Malleolus 65 cm 40 cm From Medial Malleolus 70 cm 50 cm From Medial Malleolus 71.8 cm 60 cm From Medial Malleolus 71.4 cm Knee Joint 71.3 cm PT-OP-Q Treatments Start: 11/24/23 08:48 Freq: Status: Active Protocol: Document 07/30/24 10:37 [facility] (Rec: 07/30/24 11:21 SAK [id number]) Cardio Equipment Recumbent Stepper (Sci-Fit) Duration (Minutes) 10 Resistance 1 Seat Position 10 Other to facilitate lymphatic flow Therapeutic Activity Therapeutic Activity transfer sit to supine Comments SBA today donning/doffing pants Reps/Minutes 3 Comments min assist donning Lymphedema Treatment Manual Lymphatic Drainage Location right LE, left proximal LE Duration 40 Comments Sequential pneumatic pump on right duringt MLDE proxinal left. No pump left only due to newly diagnosed infection left distal LE Lymphedema Wrapping Materials Coban lite system toes to knee with cast padding at anterior ankles and crease lower leg. Patient to apply Bioflect after wound care at 2:00 today . Sequential Lymphedema Exercises Comments stella LEs and trunk, UE's to facilitate lymphatic flow Compression Garment Assessment Compression Garment Assessment Details patient forgot to bring compression wraps. Patient Education Self Manual Lymphatic Drainage reviewed Other Other application of Cetaphil lotion after MLD stella le's PT-OP-R Modalities Start: 11/24/23 08:48 Freq: Status: Active Protocol: Document 07/30/24 10:37 SAK (Rec: 07/30/24 11:21 [facility]AK [id number]) Compression Pump Treatment Treatment Location stella LEs Pressure Amount (mmHg) (mmHG) 45 Inflation Time (Seconds) 30 Deflation Time (Seconds) 5 Treatment Tolerance Good Treatment Comments right LE during MLD left LE, trunk clearing right LE Pressure Amount (mmHg) (mmHG) 45 Inflation Time (Seconds) 10 Deflation Time (Seconds) 5 Treatment Tolerance Good Treatment Comments during MLD proximal and left LE: PT-OP-T Assessment and Plan Start: 11/24/23 08:48 Freq: Status: Active Protocol: Document 07/30/24 10:37 SAK (Rec: 07/30/24 11:21 [facility] [id number]) Physical Therapy Assessment Impairments Impairments Activity Tolerance,Edema,Gait, Soft Tissue Mobility Goals Two Impairment Lymphedema life impact scale score 34% Short Term Goal (STG) Decrease score to no greater than24% as measure of improved activity tolerance and quality of life 01/26/24: 30% 02/16/24: dec to 25% 05/22/24: score 23% STG Duration 06/29/24 Shelter Goal (LTG) Decrease lymphedema life impact scale score to no greater than 15% as measure of improved ability to self manage her lymphedema and improved quality of life LTG Duration 08/17/24 One Impairment lymphedema stella LE's Short Term Goal (STG) Instruct and review all aspects of lymphedema care including skin care, manual lymphatic drainage and use of her lymphedema pump, compression, exercise, and elevation. 01/26/24: goal met STG Duration goal met Branch Manager Goal (LTG) Patient to be able to self manage all aspects of her lymphedema including donning and doffing appropriate compression garments and use of sequential pneumatic pump 02/16/24: goal progress, still has challenged with donning Bioflect compression tights and is poorlycompliant to wearing velcro compression wraps on knees due to difficulty. 05/18/24: Did not bring wraps today, unable to don independently. Has worn Bioflect a few times since last seen but is exhausted by donning. Has been in hotel 1x since last seen and was then able to use pump. Is on list for affordable housing but hasn't heard anything; living in car which makes management of lymphedema very challenging . LTG Duration 08/17/24 Three Impairment gait impairment Impairment uses FWW and doesn't go out of the house other than for medical appointments Branch Manager Goal (LTG) Patient able to ambulate for at least 10 minutes with least restrictive device 01/26/24: continues to use 4WW but limited activity tolerance due to cancer fatigue. 02/16/24: goal progress, and just this week has been able to resume Sci-Fit recumbant elliptical due to decreased weight of legs, improved activity tolerance. Can walk for 4 min max before requiring a rest. 05/18/24: tries to take a walk at least couple times per day LTG Duration 08/17/24 Progress Towards Goals Progress Towards Goals Slow Progress due to Activity Tolerance,Slow Progress due to Medical Issues,Slow Progress - Other Progress Comments financial limitations unhoused status active cancer of uterus Assessment Summary Assessment Patient circumferential measurements all decreased, skin clean and dry. Patient now just seeing wound care for check next week, wounds closed. Being able to be in a hotel for 3 nights very beneficial for patient's health. She cannot find her compression wraps in her car, will continue to try. PT awaits word from Compression Care regarding garments. Physical Therapy Plan Frequency and Duration Frequency of Treatment 20 visits Duration of treatment (weeks) 12 Plan of Care Start Date 05/18/24 Plan of Care End Date 08/17/24 Therapeutic Interventions Therapeutic Interventions Gait Training,Home Exercise Program,Lymphedema Management, Manual Therapy,Patient/ Caregiver Education,Self-Care/ Home Management,Soft Tissue Mobilization,Therapeutic Activities Modalities Vasopneumatic Devices
--- NOTE | 2024-08-02 11:50 | PT.OTN ---
Current Diagnoses Lymphedema, not elsewhere classified (08/02/24) Physical Therapy Treatment Note PT-OP-A Visit Information Start: 11/24/23 08:48 Freq: Status: Active Protocol: Document 08/02/24 10:50 SAK (Rec: 08/02/24 11:47 SAK [id number]) Out-Patient Physical Therapy Visit Information Visit Information Visit Type Treatment Note Visit Start Time 10:45 Visit Stop Time 12:10 Visit Number [id number] Evaluation Information Evaluation Date 11/24/23 Precautions Precautions cervical CA PT-OP-B Current Condition Start: 11/24/23 08:48 Freq: Status: Active Protocol: Document 08/02/24 10:50 SAK (Rec: 08/02/24 11:47 SAK [id number]) Current Condition History of Current Condition Onset Date 2+ years Current Complaints lymphedema bilateral LE's History of Current Condition Patient has long history of lymphedema stella LE's, previously seen in this clinic . Discharged from PT after wounds healed, fit for bilateral velcro compression wraps. Patient has now developed multiple new wounds and her lymphedema has worsened. Contributing factors are treatment for pelvic cancer, currently receiving chemotherapy treatments, as well as homelessness and difficulty performing self management program, plus obesity. States she cant bend to put on velcro wraps, has been wearing compression tights: Bioflect. Prior Treatments and Tests prior wound care and lymphedema management PT-OP-C Subjective Start: 11/24/23 08:48 Freq: Status: Active Protocol: Document 08/02/24 10:50 SAK (Rec: 08/02/24 11:47 SAK [id number]) OP-PT Subjective Patient Comments Patient Comments Hasn't felt very good past few days, some nausea, not bad, not great. Has been elevating legs more in back seat of car , and wearing Bioflect, agrees need to purchase additional Bioflect. Going to see oncologist Tuesday and surgeon Tuesday. PT-OP-F Manual Assessment Start: 11/24/23 08:48 Freq: Status: Active Protocol: Document 11/24/23 09:30 SAK (Rec: 11/24/23 16:01 SAK [id number]) Manual Assessments Soft Tissue Assessment Soft Tissue Mobility Assessment hyperkeratosis and fibrosis bilateral lower legs PT-OP-G Mobility & Gait Start: 11/24/23 08:48 Freq: Status: Active Protocol: Document 11/24/23 09:30 SAK (Rec: 11/24/23 16:01 [facility] [id number]) OP Gait Assessment Gait Gait Assistance Required: Independent Assistive Devices Assistive Device Front Wheeled Walker Gait Deviations General Gait Pattern Antalgic,Decreased Stride Length,Decreased Feet Clearance Factors Limiting Gait Function Factors Limiting Gait Function Decreased Activity Tolerance, Decreased Strength PT-OP-K Range of Motion Start: 11/24/23 08:48 Freq: Status: Active Protocol: Document 11/24/23 09:30 SAK (Rec: 11/24/23 16:01 [facility] [id number]) Hip Goniometric Range of Motion Hip stella Hip ROM WFL No Comments mod decrease Hip ROM Limitations Hip ROM Limitations Soft Tissue Tightness,Muscle Weakness Knee Goniometric Range of Motion Knee stella Knee ROM WFL No Comments flexion limited by tissue approximation Ankle and Foot Goniometric Range of Motion Ankle and Foot stella Ankle/Foot ROM WFL Yes PT-OP-L Special Tests Start: 11/24/23 08:48 Freq: Status: Active Protocol: Document 11/24/23 09:30 [facility] (Rec: 11/24/23 16:02 [facility] [id number]) Special Tests Other Special Tests Special Tests Stemmer sign positive bilaterally PT-OP-M Strength Start: 11/24/23 08:48 Freq: Status: Active Protocol: Document 11/24/23 09:30 SAK (Rec: 11/24/23 16:03 [facility] [id number]) Hip Strength Hip Manual Muscle Testing stella Comments limited to less than 3/5 stella, impacted by both muscle weakness and weight of legs with lymphedema Knee Strength Knee Manual Muscle Testing stella Flexion (S2) 3+ Fair+ Extension (L3) 3+ Fair+ Ankle/Foot Strength Ankle and Foot Manual Muscle Testing stella Dorsiflexion (L4) 4- Good- Plantarflexion (S1) 4- Good- PT-OP-N Lymphedema Start: 11/24/23 08:48 Freq: Status: Active Protocol: Document 08/02/24 10:50 SAK (Rec: 08/02/24 11:47 SAK [id number]) Lymphedema Measurements Lower Extremity Circumference Measurements Left Affected MT Heads 24 cm Mid-foot 24.2 cm Medial Malleolus 30.8 cm 10 cm From Medial Malleolus 44.8 cm 20 cm From Medial Malleolus 50.3 cm 30 cm From Medial Malleolus 58.5 cm 40 cm From Medial Malleolus 69.5 cm 50 cm From Medial Malleolus 72.4 cm 60 cm From Medial Malleolus 74 cm Knee Joint 60.3 cm PT-OP-Q Treatments Start: 11/24/23 08:48 Freq: Status: Active Protocol: Document 08/02/24 10:50 SAK (Rec: 08/02/24 11:47 [facility] [id number]) Cardio Equipment Recumbent Stepper (Sci-Fit) Duration (Minutes) 10 Resistance 1 Seat Position 10 Other to facilitate lymphatic flow Lymphedema Treatment Manual Lymphatic Drainage Location right LE, left proximal LE Duration 40 Comments Sequential pneumatic pump on right duringt MLDE proxinal left. No pump left only due to newly diagnosed infection left distal LE Lymphedema Wrapping Materials Coban lite system toes to knee with cast padding at anterior ankles and crease lower leg. Patient to apply Bioflect after wound care at 2:00 today . Sequential Lymphedema Exercises Comments stella LEs and trunk, UE's to facilitate lymphatic flow Compression Garment Assessment Compression Garment Assessment Details Patient to don Bioflect later, didn't bring Other Other application of Cetaphil lotion after MLD stella le's PT-OP-R Modalities Start: 11/24/23 08:48 Freq: Status: Active Protocol: Document 08/02/24 10:50 SAK (Rec: 08/02/24 11:47 [facility] [id number]) Compression Pump Treatment Treatment Location stella LEs Pressure Amount (mmHg) (mmHG) 45 Inflation Time (Seconds) 30 Deflation Time (Seconds) 5 Treatment Tolerance Good Treatment Comments right LE during MLD left LE, trunk clearing right LE Pressure Amount (mmHg) (mmHG) 45 Inflation Time (Seconds) 10 Deflation Time (Seconds) 5 Treatment Tolerance Good Treatment Comments during MLD proximal and left LE: PT-OP-T Assessment and Plan Start: 11/24/23 08:48 Freq: Status: Active Protocol: Document 08/02/24 10:50 SAK (Rec: 08/02/24 11:47 [facility] [id number]) Physical Therapy Assessment Impairments Impairments Activity Tolerance,Edema,Gait, Soft Tissue Mobility Goals Two Impairment Lymphedema life impact scale score 34% Short Term Goal (STG) Decrease score to no greater than24% as measure of improved activity tolerance and quality of life 01/26/24: 30% 02/16/24: dec to 25% 05/22/24: score 23% STG Duration 06/29/24 Waste Baler Goal (LTG) Decrease lymphedema life impact scale score to no greater than 15% as measure of improved ability to self manage her lymphedema and improved quality of life LTG Duration 08/17/24 One Impairment lymphedema stella LE's Short Term Goal (STG) Instruct and review all aspects of lymphedema care including skin care, manual lymphatic drainage and use of her lymphedema pump, compression, exercise, and elevation. 01/26/24: goal met STG Duration goal met Fdc Goal (LTG) Patient to be able to self manage all aspects of her lymphedema including donning and doffing appropriate compression garments and use of sequential pneumatic pump 02/16/24: goal progress, still has challenged with donning Bioflect compression tights and is poorlycompliant to wearing velcro compression wraps on knees due to difficulty. 05/18/24: Did not bring wraps today, unable to don independently. Has worn Bioflect a few times since last seen but is exhausted by donning. Has been in hotel 1x since last seen and was then able to use pump. Is on list for affordable housing but hasn't heard anything; living in car which makes management of lymphedema very challenging . LTG Duration 08/17/24 Three Impairment gait impairment Impairment uses FWW and doesn't go out of the house other than for medical appointments Waste Baler Goal (LTG) Patient able to ambulate for at least 10 minutes with least restrictive device 01/26/24: continues to use 4WW but limited activity tolerance due to cancer fatigue. 02/16/24: goal progress, and just this week has been able to resume Sci-Fit recumbant elliptical due to decreased weight of legs, improved activity tolerance. Can walk for 4 min max before requiring a rest. 05/18/24: tries to take a walk at least couple times per day LTG Duration 08/17/24 Progress Towards Goals Progress Towards Goals Slow Progress due to Activity Tolerance,Slow Progress due to Medical Issues,Slow Progress - Other Progress Comments financial limitations unhoused status active cancer of uterus Assessment Summary Assessment circunferential measurements much decreased lower legs but increased knees and thighs, likely due to compression from Coban distally and layering Bioflect over but no proximal wraps under. Physical Therapy Plan Frequency and Duration Frequency of Treatment 20 visits Duration of treatment (weeks) 12 Plan of Care Start Date 05/18/24 Plan of Care End Date 08/17/24 Therapeutic Interventions Therapeutic Interventions Gait Training,Home Exercise Program,Lymphedema Management, Manual Therapy,Patient/ Caregiver Education,Self-Care/ Home Management,Soft Tissue Mobilization,Therapeutic Activities Modalities Vasopneumatic Devices Next Visit Focus/Plan Next Note Type Treatment Note Next Visit Plan Continue CDT as able given medical issues,
--- NOTE | 2024-08-06 11:11 | PT-OP ANOTE ---
cancelled due to oncology appointment
--- NOTE | 2024-08-09 11:51 | PT.OTN ---
Current Diagnoses Lymphedema, not elsewhere classified (08/09/24) Physical Therapy Treatment Note PT-OP-A Visit Information Start: 11/24/23 08:48 Freq: Status: Active Protocol: Document 08/09/24 10:40 SAK (Rec: 08/09/24 11:51 SAK [id number]) Out-Patient Physical Therapy Visit Information Visit Information Visit Type Treatment Note Visit Start Time 10:45 Visit Stop Time 12:10 Visit Number 38 Evaluation Information Evaluation Date 11/24/23 Precautions Precautions cervical CA PT-OP-B Current Condition Start: 11/24/23 08:48 Freq: Status: Active Protocol: Document 08/09/24 10:40 SAK (Rec: 08/09/24 11:51 SAK [id number]) Current Condition History of Current Condition Onset Date 2+ years Current Complaints lymphedema bilateral LE's History of Current Condition Patient has long history of lymphedema stella LE's, previously seen in this clinic . Discharged from PT after wounds healed, fit for bilateral velcro compression wraps. Patient has now developed multiple new wounds and her lymphedema has worsened. Contributing factors are treatment for pelvic cancer, currently receiving chemotherapy treatments, as well as homelessness and difficulty performing self management program, plus obesity. States she cant bend to put on velcro wraps, has been wearing compression tights: Bioflect. Prior Treatments and Tests prior wound care and lymphedema management PT-OP-C Subjective Start: 11/24/23 08:48 Freq: Status: Active Protocol: Document 08/09/24 10:40 SAK (Rec: 08/09/24 11:51 SAK [id number]) OP-PT Subjective Patient Comments Patient Comments Bandaging fell down on right, hasn't been bandaged since 1 week ago. Has some skin breakdown on right. Saw surgeon, is considering surgery. Has meeting with [facility] tomorrow. Right leg more swollen. Couldn't tolerate Bioflect, irritated her skin. PT-OP-F Manual Assessment Start: 11/24/23 08:48 Freq: Status: Active Protocol: Document 11/24/23 09:30 SAK (Rec: 11/24/23 16:01 SAK [id number]) Manual Assessments Soft Tissue Assessment Soft Tissue Mobility Assessment hyperkeratosis and fibrosis bilateral lower legs PT-OP-G Mobility & Gait Start: 11/24/23 08:48 Freq: Status: Active Protocol: Document 11/24/23 09:30 SAK (Rec: 11/24/23 16:01 [facility] [id number]) OP Gait Assessment Gait Gait Assistance Required: Independent Assistive Devices Assistive Device Front Wheeled Walker Gait Deviations General Gait Pattern Antalgic,Decreased Stride Length,Decreased Feet Clearance Factors Limiting Gait Function Factors Limiting Gait Function Decreased Activity Tolerance, Decreased Strength PT-OP-K Range of Motion Start: 11/24/23 08:48 Freq: Status: Active Protocol: Document 11/24/23 09:30 SAK (Rec: 11/24/23 16:01 [facility] [id number]) Hip Goniometric Range of Motion Hip stella Hip ROM WFL No Comments mod decrease Hip ROM Limitations Hip ROM Limitations Soft Tissue Tightness,Muscle Weakness Knee Goniometric Range of Motion Knee stella Knee ROM WFL No Comments flexion limited by tissue approximation Ankle and Foot Goniometric Range of Motion Ankle and Foot stella Ankle/Foot ROM WFL Yes PT-OP-L Special Tests Start: 11/24/23 08:48 Freq: Status: Active Protocol: Document 11/24/23 09:30 SAK (Rec: 11/24/23 16:02 [facility] [id number]) Special Tests Other Special Tests Special Tests Stemmer sign positive bilaterally PT-OP-M Strength Start: 11/24/23 08:48 Freq: Status: Active Protocol: Document 11/24/23 09:30 SAK (Rec: 11/24/23 16:03 [facility] [id number]) Hip Strength Hip Manual Muscle Testing stella Comments limited to less than 3/5 stella, impacted by both muscle weakness and weight of legs with lymphedema Knee Strength Knee Manual Muscle Testing stella Flexion (S2) 3+ Fair+ Extension (L3) 3+ Fair+ Ankle/Foot Strength Ankle and Foot Manual Muscle Testing stella Dorsiflexion (L4) 4- Good- Plantarflexion (S1) 4- Good- PT-OP-N Lymphedema Start: 11/24/23 08:48 Freq: Status: Active Protocol: Document 08/09/24 10:40 SAK (Rec: 08/09/24 11:51 SAK [id number]) Lymphedema Measurements Lower Extremity Circumference Measurements Left Affected MT Heads 24.4 cm Mid-foot 24.5 cm Medial Malleolus 31.7 cm 10 cm From Medial Malleolus 46.5 cm 20 cm From Medial Malleolus 51.8 cm 30 cm From Medial Malleolus 60 cm 40 cm From Medial Malleolus 67.6 cm 50 cm From Medial Malleolus 72 cm 60 cm From Medial Malleolus 79 cm Knee Joint 60.4 cm right affected MT Heads 25.5 cm Mid-foot 25.8 cm Medial Malleolus 34 cm 10 cm From Medial Malleolus 61.3 cm 20 cm From Medial Malleolus 63.3 cm 30 cm From Medial Malleolus 69.2 cm 40 cm From Medial Malleolus 72.3 cm 50 cm From Medial Malleolus 72.5 cm 60 cm From Medial Malleolus 75.3 cm Knee Joint 71.3 cm PT-OP-Q Treatments Start: 11/24/23 08:48 Freq: Status: Active Protocol: Document 08/09/24 10:40 SAK (Rec: 08/09/24 11:51 SAK [id number]) Cardio Equipment Recumbent Stepper (Sci-Fit) Duration (Minutes) 10 Resistance 1 Seat Position 10 Other to facilitate lymphatic flow Lymphedema Treatment Manual Lymphatic Drainage Location right LE, left proximal LE Duration 40 Comments Sequential pneumatic pump on right during MLD left; kept on right due to no bandaging for 2 days, significant increase in size with potential for infection. Noted good reduction after use of pump right Lymphedema Wrapping Body Location stella LE's Materials Coban lite system toes to knee with cast padding at anterior ankles and crease lower leg. Patient to apply Bioflect after wound care at 2:00 today . Sequential Lymphedema Exercises Comments stella LEs and trunk, UE's to facilitate lymphatic flow Compression Garment Assessment Compression Garment Assessment Details Patient to don Bioflect later, didn't bring Other Other application of Cetaphil lotion after MLD stella le's PT-OP-R Modalities Start: 11/24/23 08:48 Freq: Status: Active Protocol: Document 08/09/24 10:40 SAK (Rec: 08/09/24 11:51 SAK [id number]) Compression Pump Treatment Treatment Location right LE Pressure Amount (mmHg) (mmHG) 45 Inflation Time (Seconds) 10 Deflation Time (Seconds) 5 Treatment Tolerance Good Treatment Comments during MLD proximal and left LE: PT-OP-T Assessment and Plan Start: 11/24/23 08:48 Freq: Status: Active Protocol: Document 08/09/24 10:40 [facility] (Rec: 08/09/24 11:51 [facility] [id number]) Physical Therapy Assessment Impairments Impairments Activity Tolerance,Edema,Gait, Soft Tissue Mobility Goals Two Impairment Lymphedema life impact scale score 34% Short Term Goal (STG) Decrease score to no greater than24% as measure of improved activity tolerance and quality of life 01/26/24: 30% 02/16/24: dec to 25% 05/22/24: score 23% STG Duration 06/29/24 Custodial Goal (LTG) Decrease lymphedema life impact scale score to no greater than 15% as measure of improved ability to self manage her lymphedema and improved quality of life LTG Duration 08/17/24 One Impairment lymphedema stella LE's Short Term Goal (STG) Instruct and review all aspects of lymphedema care including skin care, manual lymphatic drainage and use of her lymphedema pump, compression, exercise, and elevation. 01/26/24: goal met STG Duration goal met Rod Puller Goal (LTG) Patient to be able to self manage all aspects of her lymphedema including donning and doffing appropriate compression garments and use of sequential pneumatic pump 02/16/24: goal progress, still has challenged with donning Bioflect compression tights and is poorlycompliant to wearing velcro compression wraps on knees due to difficulty. 05/18/24: Did not bring wraps today, unable to don independently. Has worn Bioflect a few times since last seen but is exhausted by donning. Has been in hotel 1x since last seen and was then able to use pump. Is on list for affordable housing but hasn't heard anything; living in car which makes management of lymphedema very challenging . LTG Duration 08/17/24 Three Impairment gait impairment Impairment uses FWW and doesn't go out of the house other than for medical appointments Custodial Goal (LTG) Patient able to ambulate for at least 10 minutes with least restrictive device 01/26/24: continues to use 4WW but limited activity tolerance due to cancer fatigue. 02/16/24: goal progress, and just this week has been able to resume Sci-Fit recumbant elliptical due to decreased weight of legs, improved activity tolerance. Can walk for 4 min max before requiring a rest. 05/18/24: tries to take a walk at least couple times per day LTG Duration 08/17/24 Progress Towards Goals Progress Towards Goals Slow Progress due to Activity Tolerance,Slow Progress due to Medical Issues,Slow Progress - Other Progress Comments financial limitations unhoused status active cancer of uterus Assessment Summary Assessment Right LE circumference increased after no bandaging x 2 days, patient cannot find her compression wraps, wearing Bioflect irritated her skin due to some skin breakdown again, saw wound care just prior to PT. Is meeting with someone from [facility] tomorrow regarding housing; feel stable housing required before patient will be able to be done with wound care or PT to allow for better self care . Physical Therapy Plan Frequency and Duration Frequency of Treatment 20 visits Duration of treatment (weeks) 12 Plan of Care Start Date 05/18/24 Plan of Care End Date 08/17/24 Therapeutic Interventions Therapeutic Interventions Gait Training,Home Exercise Program,Lymphedema Management, Manual Therapy,Patient/ Caregiver Education,Self-Care/ Home Management,Soft Tissue Mobilization,Therapeutic Activities Modalities Vasopneumatic Devices Next Visit Focus/Plan Next Note Type Treatment Note Next Visit Plan Continue CDT as able given medical issues,
--- NOTE | 2024-08-16 11:42 | PT.OTRE ---
Current Diagnoses Lymphedema, not elsewhere classified (08/16/24) Visit Care Team Role Provider Type Geovani Elder DO Family Provider Non-Staff Primary Care Provider Specialty: Medical Address: [address] [place] [address] Dr. Mike De Los Santos, [place], [address] Email: Nicolás Schrader MD Attending Provider Physician Referring Provider Specialty: Wound Care Address: [address] [place] [address], [id number] Email: [email or web address] Physical Therapy Re-Evaluation PT-OP-A Visit Information Start: 11/24/23 08:48 Freq: Status: Active Protocol: Document 08/16/24 10:49 SAK (Rec: 08/16/24 11:39 SAK [id number]) Out-Patient Physical Therapy Visit Information Visit Information Visit Type Treatment Note Visit Start Time 10:45 Visit Stop Time 12:10 Visit Number 40 Evaluation Information Evaluation Date 11/24/23 PT-OP-B Current Condition Start: 11/24/23 08:48 Freq: Status: Active Protocol: Document 08/16/24 10:49 SAK (Rec: 08/16/24 11:39 SAK [id number]) Current Condition History of Current Condition Onset Date 2+ years Current Complaints lymphedema bilateral LE's History of Current Condition Patient has long history of lymphedema stella LE's, previously seen in this clinic . Discharged from PT after wounds healed, fit for bilateral velcro compression wraps. Patient has now developed multiple new wounds and her lymphedema has worsened. Contributing factors are treatment for pelvic cancer, currently receiving chemotherapy treatments, as well as homelessness and difficulty performing self management program, plus obesity. States she cant bend to put on velcro wraps, has been wearing compression tights: Bioflect. Prior Treatments and Tests prior wound care and lymphedema management PT-OP-C Subjective Start: 11/24/23 08:48 Freq: Status: Active Protocol: Document 08/16/24 10:49 SAK (Rec: 08/16/24 11:39 SAK [id number]) OP-PT Subjective Patient Comments Patient Comments Met with Zuri from [facility]. Now in [facility] [employer] for 1 wk to 10 days. Working on more permenant housing. Has large spots on left leg more than right; states Dr. Schrader thinks allergy to new anti-depressant PT-OP-F Manual Assessment Start: 11/24/23 08:48 Freq: Status: Active Protocol: Document 11/24/23 09:30 SAK (Rec: 11/24/23 16:01 [facility] [id number]) Manual Assessments Soft Tissue Assessment Soft Tissue Mobility Assessment hyperkeratosis and fibrosis bilateral lower legs PT-OP-G Mobility & Gait Start: 11/24/23 08:48 Freq: Status: Active Protocol: Document 11/24/23 09:30 SAK (Rec: 11/24/23 16:01 [facility] [id number]) OP Gait Assessment Gait Gait Assistance Required: Independent Assistive Devices Assistive Device Front Wheeled Walker Gait Deviations General Gait Pattern Antalgic,Decreased Stride Length,Decreased Feet Clearance Factors Limiting Gait Function Factors Limiting Gait Function Decreased Activity Tolerance, Decreased Strength PT-OP-K Range of Motion Start: 11/24/23 08:48 Freq: Status: Active Protocol: Document 11/24/23 09:30 SAK (Rec: 11/24/23 16:01 [facility] [id number]) Hip Goniometric Range of Motion Hip Measured in Degrees stella Hip ROM WFL No Comments mod decrease Hip ROM Limitations Hip ROM Limitations Soft Tissue Tightness,Muscle Weakness Knee Goniometric Range of Motion Knee Measured in Degrees stella Knee ROM WFL No Comments flexion limited by tissue approximation Ankle and Foot Goniometric Range of Motion Ankle and Foot Measured in Degrees stella Ankle/Foot ROM WFL Yes PT-OP-L Special Tests Start: 11/24/23 08:48 Freq: Status: Active Protocol: Document 11/24/23 09:30 SAK (Rec: 11/24/23 16:02 [facility] [id number]) Special Tests Other Special Tests Special Tests Stemmer sign positive bilaterally PT-OP-M Strength Start: 11/24/23 08:48 Freq: Status: Active Protocol: Document 11/24/23 09:30 SAK (Rec: 11/24/23 16:03 [facility] [id number]) Hip Strength Hip Manual Muscle Testing stella Comments limited to less than 3/5 stella, impacted by both muscle weakness and weight of legs with lymphedema Knee Strength Knee Manual Muscle Testing stella Flexion (S2) 3+ Fair+ Extension (L3) 3+ Fair+ Ankle/Foot Strength Ankle and Foot Manual Muscle Testing stella Dorsiflexion (L4) 4- Good- Plantarflexion (S1) 4- Good- PT-OP-N Lymphedema Start: 11/24/23 08:48 Freq: Status: Active Protocol: Document 08/16/24 10:49 KATIA (Rec: 08/16/24 11:39 [facility] [id number]) Lymphedema Measurements Lower Extremity Circumference Measurements Left Affected MT Heads 25.6 cm Mid-foot 25 cm Medial Malleolus 30.5 cm 10 cm From Medial Malleolus 42.3 cm 20 cm From Medial Malleolus 48.5 cm 30 cm From Medial Malleolus 65 cm 40 cm From Medial Malleolus 72 cm 50 cm From Medial Malleolus 71.3 cm 60 cm From Medial Malleolus 74.5 cm Knee Joint 65 cm right affected MT Heads 26.2 cm Mid-foot 25 cm Medial Malleolus 32.2 cm 10 cm From Medial Malleolus 48.3 cm 20 cm From Medial Malleolus 56.4 cm 30 cm From Medial Malleolus 72.7 cm 40 cm From Medial Malleolus 74.3 cm 50 cm From Medial Malleolus 75.9 cm 60 cm From Medial Malleolus 74.4 cm 70 cm From Medial Malleolus 25.6 cm Knee Joint 74.3 cm PT-OP-Q Treatments Start: 11/24/23 08:48 Freq: Status: Active Protocol: Document 08/16/24 10:49 [facility] (Rec: 08/16/24 11:39 [facility] [id number]) Lymphedema Treatment Manual Lymphatic Drainage Location right LE, left proximal LE Duration 40 Comments Sequential pneumatic pump on right during MLD left; kept on right due to no bandaging for 2 days, significant increase in size with potential for infection. Noted good reduction after use of pump right Lymphedema Wrapping Body Location stella LE's [employer] lite system toes to knee with cast padding at anterior ankles and crease lower leg. Patient to apply Bioflect at hotel room Sequential Lymphedema Exercises Comments stella LEs and trunk, UE's to facilitate lymphatic flow Compression Garment Assessment Compression Garment Assessment Details Patient to don Bioflect later, didn't bring PT-OP-R Modalities Start: 11/24/23 08:48 Freq: Status: Active Protocol: Document 08/16/24 10:49 [facility] (Rec: 08/16/24 11:39 [facility] [id number]) Compression Pump Treatment Treatment Location stella LEs Pressure Amount (mmHg) (mmHG) 45 Inflation Time (Seconds) 30 Deflation Time (Seconds) 5 Treatment Tolerance Good Treatment Comments right LE during MLD left LE, trunk clearing PT-OP-T Assessment and Plan Start: 11/24/23 08:48 Freq: Status: Active Protocol: Document 08/16/24 10:49 [facility] (Rec: 08/16/24 11:39 [facility] [id number]) Physical Therapy Assessment Impairments Impairments Activity Tolerance,Edema,Gait, Soft Tissue Mobility Goals Two Impairment Lymphedema life impact scale score 34% Short Term Goal (STG) Decrease score to no greater than24% as measure of improved activity tolerance and quality of life 01/26/24: 30% 02/16/24: dec to 25% 05/22/24: score 23% STG Duration 09/27/23 Chief Operating Officer Goal (LTG) Decrease lymphedema life impact scale score to no greater than 15% as measure of improved ability to self manage her lymphedema and improved quality of life LTG Duration 11/15/23 One Impairment lymphedema stella LE's Short Term Goal (STG) Instruct and review all aspects of lymphedema care including skin care, manual lymphatic drainage and use of her lymphedema pump, compression, exercise, and elevation. 01/26/24: goal met STG Duration goal met Group Home Goal (LTG) Patient to be able to self manage all aspects of her lymphedema including donning and doffing appropriate compression garments and use of sequential pneumatic pump 02/16/24: goal progress, still has challenged with donning Bioflect compression tights and is poorlycompliant to wearing velcro compression wraps on knees due to difficulty. 05/18/24: Did not bring wraps today, unable to don independently. Has worn Bioflect a few times since last seen but is exhausted by donning. Has been in hotel 1x since last seen and was then able to use pump. Is on list for affordable housing but hasn't heard anything; living in car which makes management of lymphedema very challenging . LTG Duration 11/15/23 Three Impairment gait impairment Impairment uses FWW and doesn't go out of the house other than for medical appointments Group Home Goal (LTG) Patient able to ambulate for at least 10 minutes with least restrictive device 01/26/24: continues to use 4WW but limited activity tolerance due to cancer fatigue. 02/16/24: goal progress, and just this week has been able to resume Sci-Fit recumbant elliptical due to decreased weight of legs, improved activity tolerance. Can walk for 4 min max before requiring a rest. 05/18/24: tries to take a walk at least couple times per day LTG Duration 11/15/23 Progress Towards Goals Progress Towards Goals Slow Progress due to Activity Tolerance,Slow Progress due to Medical Issues,Slow Progress - Other Progress Comments financial limitations unhoused status active cancer of uterus Assessment Summary Assessment Decreased most distal lower leg measurements but increased at knees left greater than right due to rash, inflammation. Patient has stopped taking anti-depressant and is taking Benadryl and will get Hydrocortisone cream as recommended by Dr. Schrader at wound care today. Prior wound on left leg improving mobility with scar mobiization , decreased depth of divot. Physical Therapy Plan Frequency and Duration Frequency of Treatment 20 visits Duration of treatment (weeks) 12 Plan of Care Start Date 08/16/24 Plan of Care End Date 11/15/23 Therapeutic Interventions Therapeutic Interventions Gait Training,Home Exercise Program,Lymphedema Management, Manual Therapy,Patient/ Caregiver Education,Self-Care/ Home Management,Soft Tissue Mobilization,Therapeutic Activities Modalities Vasopneumatic Devices Next Visit Focus/Plan Next Note Type Treatment Note Next Visit Plan Continue CDT, assure good fit of compression when comes from Compression Care.
--- NOTE | 2024-08-16 11:42 | PT.OPPOC ---
Physical, Occupational & Speech Therapy At [facility] Current Diagnoses Lymphedema, not elsewhere classified (08/16/24) Visit Care Team Role Provider Type Geovani Elder DO Family Provider Non-Staff Primary Care Provider Specialty: Medical Address: [address] [place] [address] Dr. Mike De Los Santos, [place], [address] Email: Nicolás Schrader MD Attending Provider Physician Referring Provider Specialty: Wound Care Address: [address] [place] [address], [id number] Email: [email or web address] Plan Of Care PT-OP-B Current Condition Start: 11/24/23 08:48 Freq: Status: Active Protocol: Document 08/16/24 10:49 SAK (Rec: 08/16/24 11:39 SAK [id number]) Current Condition History of Current Condition Onset Date 2+ years Current Complaints lymphedema bilateral LE's History of Current Condition Patient has long history of lymphedema stella LE's, previously seen in this clinic . Discharged from PT after wounds healed, fit for bilateral velcro compression wraps. Patient has now developed multiple new wounds and her lymphedema has worsened. Contributing factors are treatment for pelvic cancer, currently receiving chemotherapy treatments, as well as homelessness and difficulty performing self management program, plus obesity. States she cant bend to put on velcro wraps, has been wearing compression tights: Bioflect. Prior Treatments and Tests prior wound care and lymphedema management PT-OP-T Assessment and Plan Start: 11/24/23 08:48 Freq: Status: Active Protocol: Document 08/16/24 10:49 SAK (Rec: 08/16/24 11:39 SAK [id number]) Physical Therapy Assessment Impairments Impairments Activity Tolerance,Edema,Gait, Soft Tissue Mobility Goals Two Impairment Lymphedema life impact scale score 34% Short Term Goal (STG) Decrease score to no greater than24% as measure of improved activity tolerance and quality of life 01/26/24: 30% 02/16/24: dec to 25% 05/22/24: score 23% STG Duration 09/27/23 Washing Machine Installer Goal (LTG) Decrease lymphedema life impact scale score to no greater than 15% as measure of improved ability to self manage her lymphedema and improved quality of life LTG Duration 11/15/23 One Impairment lymphedema stella RENE's Short Term Goal (STG) Instruct and review all aspects of lymphedema care including skin care, manual lymphatic drainage and use of her lymphedema pump, compression, exercise, and elevation. 01/26/24: goal met STG Duration goal met Washing Machine Installer Goal (LTG) Patient to be able to self manage all aspects of her lymphedema including donning and doffing appropriate compression garments and use of sequential pneumatic pump 02/16/24: goal progress, still has challenged with donning Bioflect compression tights and is poorlycompliant to wearing velcro compression wraps on knees due to difficulty. 05/18/24: Did not bring wraps today, unable to don independently. Has worn Bioflect a few times since last seen but is exhausted by donning. Has been in hotel 1x since last seen and was then able to use pump. Is on list for affordable housing but hasn't heard anything; living in car which makes management of lymphedema very challenging . LTG Duration 11/15/23 Three Impairment gait impairment Impairment uses FWW and doesn't go out of the house other than for medical appointments Washing Machine Installer Goal (LTG) Patient able to ambulate for at least 10 minutes with least restrictive device 01/26/24: continues to use 4WW but limited activity tolerance due to cancer fatigue. 02/16/24: goal progress, and just this week has been able to resume Sci-Fit recumbant elliptical due to decreased weight of legs, improved activity tolerance. Can walk for 4 min max before requiring a rest. 05/18/24: tries to take a walk at least couple times per day LTG Duration 11/15/23 Progress Towards Goals Progress Towards Goals Slow Progress due to Activity Tolerance,Slow Progress due to Medical Issues,Slow Progress - Other Progress Comments financial limitations unhoused status active cancer of uterus Assessment Summary Assessment Decreased most distal lower leg measurements but increased at knees left greater than right due to rash, inflammation. Patient has stopped taking anti-depressant and is taking Benadryl and will get Hydrocortisone cream as recommended by Dr. Schrader at wound care today. Prior wound on left leg improving mobility with scar mobiization , decreased depth of divot. Physical Therapy Plan Frequency and Duration Frequency of Treatment 20 visits Duration of treatment (weeks) 12 Plan of Care Start Date 08/16/24 Plan of Care End Date 11/15/23 Therapeutic Interventions Therapeutic Interventions Gait Training,Home Exercise Program,Lymphedema Management, Manual Therapy,Patient/ Caregiver Education,Self-Care/ Home Management,Soft Tissue Mobilization,Therapeutic Activities Modalities Vasopneumatic Devices Next Visit Focus/Plan Next Note Type Treatment Note Next Visit Plan Continue CDT, assure good fit of compression when comes from Compression Care. Plan of Care Dates Plan of Care Start Date 08/16/24 Plan of Care End Date 11/15/23 Electronically Signed by: Lizeth Howard, PT 08/16/24 1819 If you are in agreement with this Plan of Care, please return a signed and dated copy. I have reviewed this Plan of Care and certify that the skilled therapy services above are required to meet the patient?s needs. Physician Signature Date Printed Name and Credentials Clinical Instructor Signature Printed Name and Credentials
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
--- NOTE | 2024-09-11 12:18 | PT.OTN ---
Current Diagnoses Lymphedema, not elsewhere classified (09/11/24) Physical Therapy Treatment Note PT-OP-A Visit Information Start: 11/24/23 08:48 Freq: Status: Active Protocol: Document 09/11/24 10:49 SAK (Rec: 09/11/24 12:17 SAK [id number]) Out-Patient Physical Therapy Visit Information Visit Information Visit Type Treatment Note Visit Start Time 10:45 Visit Stop Time 12:10 Visit Number 42 Evaluation Information Evaluation Date 11/24/23 PT-OP-B Current Condition Start: 11/24/23 08:48 Freq: Status: Active Protocol: Document 09/11/24 10:49 SAK (Rec: 09/11/24 12:17 SAK [id number]) Current Condition History of Current Condition Onset Date 2+ years Current Complaints lymphedema bilateral LE's History of Current Condition Patient has long history of lymphedema stella LE's, previously seen in this clinic . Discharged from PT after wounds healed, fit for bilateral velcro compression wraps. Patient has now developed multiple new wounds and her lymphedema has worsened. Contributing factors are treatment for pelvic cancer, currently receiving chemotherapy treatments, as well as homelessness and difficulty performing self management program, plus obesity. States she cant bend to put on velcro wraps, has been wearing compression tights: Bioflect. Prior Treatments and Tests prior wound care and lymphedema management PT-OP-C Subjective Start: 11/24/23 08:48 Freq: Status: Active Protocol: Document 09/11/24 10:49 SAK (Rec: 09/11/24 12:17 SAK [id number]) OP-PT Subjective Patient Comments Patient Comments Saw wound care, some breakdown back of legs, goes again next Tuesday, just using lotion, no bandaging. PT-OP-F Manual Assessment Start: 11/24/23 08:48 Freq: Status: Active Protocol: Document 11/24/23 09:30 SAK (Rec: 11/24/23 16:01 SAK [id number]) Manual Assessments Soft Tissue Assessment Soft Tissue Mobility Assessment hyperkeratosis and fibrosis bilateral lower legs PT-OP-G Mobility & Gait Start: 11/24/23 08:48 Freq: Status: Active Protocol: Document 11/24/23 09:30 SAK (Rec: 11/24/23 16:01 SAK [id number]) OP Gait Assessment Gait Gait Assistance Required: Independent Assistive Devices Assistive Device Front Wheeled Walker Gait Deviations General Gait Pattern Antalgic,Decreased Stride Length,Decreased Feet Clearance Factors Limiting Gait Function Factors Limiting Gait Function Decreased Activity Tolerance, Decreased Strength PT-OP-K Range of Motion Start: 11/24/23 08:48 Freq: Status: Active Protocol: Document 11/24/23 09:30 SAK (Rec: 11/24/23 16:01 SAK [id number]) Hip Goniometric Range of Motion Hip stella Hip ROM WFL No Comments mod decrease Hip ROM Limitations Hip ROM Limitations Soft Tissue Tightness,Muscle Weakness Knee Goniometric Range of Motion Knee stella Knee ROM WFL No Comments flexion limited by tissue approximation Ankle and Foot Goniometric Range of Motion Ankle and Foot stella Ankle/Foot ROM WFL Yes PT-OP-L Special Tests Start: 11/24/23 08:48 Freq: Status: Active Protocol: Document 11/24/23 09:30 SAK (Rec: 11/24/23 16:02 SAK [id number]) Special Tests Other Special Tests Special Tests Stemmer sign positive bilaterally PT-OP-M Strength Start: 11/24/23 08:48 Freq: Status: Active Protocol: Document 11/24/23 09:30 SAK (Rec: 11/24/23 16:03 SAK [id number]) Hip Strength Hip Manual Muscle Testing stella Comments limited to less than 3/5 stella, impacted by both muscle weakness and weight of legs with lymphedema Knee Strength Knee Manual Muscle Testing stella Flexion (S2) 3+ Fair+ Extension (L3) 3+ Fair+ Ankle/Foot Strength Ankle and Foot Manual Muscle Testing stella Dorsiflexion (L4) 4- Good- Plantarflexion (S1) 4- Good- PT-OP-N Lymphedema Start: 11/24/23 08:48 Freq: Status: Active Protocol: Document 09/11/24 10:49 SAK (Rec: 09/11/24 12:17 SAK [id number]) Lymphedema Measurements Lower Extremity Circumference Measurements Left Affected MT Heads 23.8 cm Mid-foot 24 cm Medial Malleolus 30.5 cm 10 cm From Medial Malleolus 37.1 cm 20 cm From Medial Malleolus 45.2 cm 30 cm From Medial Malleolus 52.5 cm 40 cm From Medial Malleolus 59.7 cm 50 cm From Medial Malleolus 66.2 cm 60 cm From Medial Malleolus 74.4 cm Knee Joint 57.7 cm right affected MT Heads 24.4 cm Mid-foot 24.2 cm Medial Malleolus 29.8 cm 10 cm From Medial Malleolus 39.7 cm 20 cm From Medial Malleolus 47.8 cm 30 cm From Medial Malleolus 54.5 cm 40 cm From Medial Malleolus 57.3 cm 50 cm From Medial Malleolus 64 cm 60 cm From Medial Malleolus 72.3 cm Knee Joint 57.7 cm PT-OP-Q Treatments Start: 11/24/23 08:48 Freq: Status: Active Protocol: Document 09/11/24 10:49 [facility] (Rec: 09/11/24 12:17 [facility] [id number]) Therapeutic Exercises Sitting Exercises seated clam Reps/Minutes 10x5 october Reps/Minutes 10x5 LAQ Reps/Minutes 10x5 Standing Exercises FWD, RETRO WALK Equipment Used parallel bars Reps/Minutes 10' ea sidestepping Reps/Minutes 10 ft x 2 Self-Care/Home Management Treatment Education Patient Education Home Exercise Program Other Education issued written HEP Lymphedema Treatment Manual Lymphatic Drainage Location right LE, left proximal LE Duration 40 Comments Sequential pneumatic pump on right during MLD left; kept on right due to no bandaging for 2 days, significant increase in size with potential for infection. Noted good reduction after use of pump right Lymphedema Wrapping Materials patient currently laundering Bioflect, ordered new pair today. Sequential Lymphedema Exercises Comments stella LEs and trunk, UE's to facilitate lymphatic flow Compression Garment Assessment Compression Garment Assessment Details Patient to don Bioflect later, didn't bring. ordered new pair today. Other Other application of Cetaphil lotion after MLD stella le's Wear Bioflect as able, no bandaging due to raw skin, need open air right now. Continue exercise, increase repetitions PT-OP-R Modalities Start: 11/24/23 08:48 Freq: Status: Active Protocol: Document 09/11/24 10:49 SAK (Rec: 09/11/24 12:17 [facility] [id number]) Compression Pump Treatment Treatment Location stella LEs Pressure Amount (mmHg) (mmHG) 45 Inflation Time (Seconds) 30 Deflation Time (Seconds) 5 Treatment Tolerance Good Treatment Comments right LE during MLD left LE, trunk clearing PT-OP-T Assessment and Plan Start: 11/24/23 08:48 Freq: Status: Active Protocol: Document 09/11/24 10:49 [facility] (Rec: 09/11/24 12:17 [facility] [id number]) Physical Therapy Assessment Impairments Impairments Activity Tolerance,Edema,Gait, Soft Tissue Mobility Goals Two Impairment Lymphedema life impact scale score 34% Short Term Goal (STG) Decrease score to no greater than24% as measure of improved activity tolerance and quality of life 01/26/24: 30% 02/16/24: dec to 25% 05/22/24: score 23% STG Duration 09/27/23 Detention Goal (LTG) Decrease lymphedema life impact scale score to no greater than 15% as measure of improved ability to self manage her lymphedema and improved quality of life LTG Duration 11/15/23 One Impairment lymphedema stella LE's Short Term Goal (STG) Instruct and review all aspects of lymphedema care including skin care, manual lymphatic drainage and use of her lymphedema pump, compression, exercise, and elevation. 01/26/24: goal met STG Duration goal met Professor Of Environmental Engineering Goal (LTG) Patient to be able to self manage all aspects of her lymphedema including donning and doffing appropriate compression garments and use of sequential pneumatic pump 02/16/24: goal progress, still has challenged with donning Bioflect compression tights and is poorlycompliant to wearing velcro compression wraps on knees due to difficulty. 05/18/24: Did not bring wraps today, unable to don independently. Has worn Bioflect a few times since last seen but is exhausted by donning. Has been in hotel 1x since last seen and was then able to use pump. Is on list for affordable housing but hasn't heard anything; living in car which makes management of lymphedema very challenging . LTG Duration 11/15/23 Three Impairment gait impairment Impairment uses FWW and doesn't go out of the house other than for medical appointments Professor Of Environmental Engineering Goal (LTG) Patient able to ambulate for at least 10 minutes with least restrictive device 01/26/24: continues to use 4WW but limited activity tolerance due to cancer fatigue. 02/16/24: goal progress, and just this week has been able to resume Sci-Fit recumbant elliptical due to decreased weight of legs, improved activity tolerance. Can walk for 4 min max before requiring a rest. 05/18/24: tries to take a walk at least couple times per day LTG Duration 11/15/23 Progress Towards Goals Progress Towards Goals Slow Progress due to Activity Tolerance,Slow Progress due to Medical Issues,Slow Progress - Other Progress Comments financial limitations unhoused status active cancer of uterus Assessment Summary Assessment Patient circumferential measurements mostly improved again though some variability. Feel will improve further after patient obtains second pair Bioflect and able to wear more consistently. Reviewed HEP and issued written HO; inc emphasis on ther ex at this time. Physical Therapy Plan Frequency and Duration Frequency of Treatment 20 visits Duration of treatment (weeks) 12 Plan of Care Start Date 08/16/24 Plan of Care End Date 11/15/23 Therapeutic Interventions Therapeutic Interventions Gait Training,Home Exercise Program,Lymphedema Management, Manual Therapy,Patient/ Caregiver Education,Self-Care/ Home Management,Soft Tissue Mobilization,Therapeutic Activities Modalities Vasopneumatic Devices Next Visit Focus/Plan Next Note Type Treatment Note Next Visit Plan Continue CDT, assure good fit of compression when comes from [facility]ression [facility]; may need to send back for new due to decrease in swelling.
--- NOTE | 2024-09-13 15:43 | PT.OTN ---
Current Diagnoses Lymphedema, not elsewhere classified (09/13/24) Physical Therapy Treatment Note PT-OP-A Visit Information Start: 11/24/23 08:48 Freq: Status: Active Protocol: Document 09/13/24 14:30 SAK (Rec: 09/13/24 15:42 SAK [id number]) Out-Patient Physical Therapy Visit Information Visit Information Visit Type Treatment Note Visit Start Time 14:31 Visit Stop Time 15:55 Visit Number 43 Evaluation Information Evaluation Date 11/24/23 Precautions Precautions uterine CA PT-OP-B Current Condition Start: 11/24/23 08:48 Freq: Status: Active Protocol: Document 09/13/24 14:30 SAK (Rec: 09/13/24 15:42 SAK [id number]) Current Condition History of Current Condition Onset Date 2+ years Current Complaints lymphedema bilateral LE's History of Current Condition Patient has long history of lymphedema stella LE's, previously seen in this clinic . Discharged from PT after wounds healed, fit for bilateral velcro compression wraps. Patient has now developed multiple new wounds and her lymphedema has worsened. Contributing factors are treatment for pelvic cancer, currently receiving chemotherapy treatments, as well as homelessness and difficulty performing self management program, plus obesity. States she cant bend to put on velcro wraps, has been wearing compression tights: Bioflect. Prior Treatments and Tests prior wound care and lymphedema management PT-OP-C Subjective Start: 11/24/23 08:48 Freq: Status: Active Protocol: Document 09/13/24 14:30 SAK (Rec: 09/13/24 15:42 SAK [id number]) OP-PT Subjective Patient Comments Patient Comments Discharged from wound care this am. Couldn't sleep last night. Met with [facility], just checking in. Making arrangements for her surgery 09/24/24. Doing PT-OP-F Manual Assessment Start: 11/24/23 08:48 Freq: Status: Active Protocol: Document 11/24/23 09:30 SAK (Rec: 11/24/23 16:01 SAK [id number]) Manual Assessments Soft Tissue Assessment Soft Tissue Mobility Assessment hyperkeratosis and fibrosis bilateral lower legs PT-OP-G Mobility & Gait Start: 11/24/23 08:48 Freq: Status: Active Protocol: Document 11/24/23 09:30 SAK (Rec: 11/24/23 16:01 [facility] [id number]) OP Gait Assessment Gait Gait Assistance Required: Independent Assistive Devices Assistive Device Front Wheeled Walker Gait Deviations General Gait Pattern Antalgic,Decreased Stride Length,Decreased Feet Clearance Factors Limiting Gait Function Factors Limiting Gait Function Decreased Activity Tolerance, Decreased Strength PT-OP-K Range of Motion Start: 11/24/23 08:48 Freq: Status: Active Protocol: Document 11/24/23 09:30 [facility] (Rec: 11/24/23 16:01 [facility] [id number]) Hip Goniometric Range of Motion Hip stella Hip ROM WFL No Comments mod decrease Hip ROM Limitations Hip ROM Limitations Soft Tissue Tightness,Muscle Weakness Knee Goniometric Range of Motion Knee stella Knee ROM WFL No Comments flexion limited by tissue approximation Ankle and Foot Goniometric Range of Motion Ankle and Foot stella Ankle/Foot ROM WFL Yes PT-OP-L Special Tests Start: 11/24/23 08:48 Freq: Status: Active Protocol: Document 11/24/23 09:30 [facility] (Rec: 11/24/23 16:02 [facility] [id number]) Special Tests Other Special Tests Special Tests Stemmer sign positive bilaterally PT-OP-M Strength Start: 11/24/23 08:48 Freq: Status: Active Protocol: Document 11/24/23 09:30 SAK (Rec: 11/24/23 16:03 [facility] [id number]) Hip Strength Hip Manual Muscle Testing stella Comments limited to less than 3/5 stella, impacted by both muscle weakness and weight of legs with lymphedema Knee Strength Knee Manual Muscle Testing stella Flexion (S2) 3+ Fair+ Extension (L3) 3+ Fair+ Ankle/Foot Strength Ankle and Foot Manual Muscle Testing stella Dorsiflexion (L4) 4- Good- Plantarflexion (S1) 4- Good- PT-OP-N Lymphedema Start: 11/24/23 08:48 Freq: Status: Active Protocol: Document 09/13/24 14:30 [facility] (Rec: 09/13/24 15:42 [facility] [id number]) Lymphedema Measurements Lower Extremity Circumference Measurements Left Affected MT Heads 24.8 cm Mid-foot 24.8 cm Medial Malleolus 31.8 cm 10 cm From Medial Malleolus 40 cm 20 cm From Medial Malleolus 47.8 cm 30 cm From Medial Malleolus 54.3 cm 40 cm From Medial Malleolus 60.5 cm 50 cm From Medial Malleolus 64 cm 60 cm From Medial Malleolus 72.4 cm Knee Joint 55.5 cm right affected MT Heads 25.4 cm Mid-foot 24.7 cm Medial Malleolus 30.8 cm 10 cm From Medial Malleolus 43.9 cm 20 cm From Medial Malleolus 49.9 cm 30 cm From Medial Malleolus 56 cm 40 cm From Medial Malleolus 61 cm 50 cm From Medial Malleolus 66 cm 60 cm From Medial Malleolus 71 cm Knee Joint 56.5 cm PT-OP-Q Treatments Start: 11/24/23 08:48 Freq: Status: Active Protocol: Document 09/13/24 14:30 [facility] (Rec: 09/13/24 15:42 [facility] [id number]) Cardio Equipment Recumbent Stepper (Sci-Fit) Duration (Minutes) 15 Resistance 1 Seat Position 12 Therapeutic Exercises Standing Exercises FWD, RETRO WALK Comments held due to left knee soreness sidestepping Comments held due to left knee soreness Lymphedema Treatment Manual Lymphatic Drainage Location right LE, left proximal LE Duration 40 Comments Sequential pneumatic pump on right during MLD left; kept on right due to no bandaging for 2 days, significant increase in size with potential for infection. Noted good reduction after use of pump right Lymphedema Wrapping Materials Had to take Bioflect off, upsetting her stomach. Waiting for delievery of new pair Sequential Lymphedema Exercises Comments stella LEs and trunk, UE's to facilitate lymphatic flow Other Other application of Cetaphil lotion after MLD stella le's Wear Bioflect as able, no bandaging due to raw skin, need open air right now. Continue exercise, increase repetitions PT-OP-R Modalities Start: 11/24/23 08:48 Freq: Status: Active Protocol: Document 09/13/24 14:30 [facility] (Rec: 09/13/24 15:42 [facility] [id number]) Compression Pump Treatment Treatment Location stella LEs Pressure Amount (mmHg) (mmHG) 45 Inflation Time (Seconds) 30 Deflation Time (Seconds) 5 Treatment Tolerance Good Treatment Comments right LE during MLD left LE, trunk clearing right LE Pressure Amount (mmHg) (mmHG) 45 Inflation Time (Seconds) 10 Deflation Time (Seconds) 5 Treatment Tolerance Good Treatment Comments during MLD proximal and left LE: PT-OP-T Assessment and Plan Start: 11/24/23 08:48 Freq: Status: Active Protocol: Document 09/13/24 14:30 [facility] (Rec: 09/13/24 15:42 [facility] [id number]) Physical Therapy Assessment Impairments Impairments Activity Tolerance,Edema,Gait, Soft Tissue Mobility Goals Two Impairment Lymphedema life impact scale score 34% Short Term Goal (STG) Decrease score to no greater than24% as measure of improved activity tolerance and quality of life 01/26/24: 30% 02/16/24: dec to 25% 05/22/24: score 23% STG Duration 09/27/23 Jail Goal (LTG) Decrease lymphedema life impact scale score to no greater than 15% as measure of improved ability to self manage her lymphedema and improved quality of life LTG Duration 11/15/23 One Impairment lymphedema stella LE's Short Term Goal (STG) Instruct and review all aspects of lymphedema care including skin care, manual lymphatic drainage and use of her lymphedema pump, compression, exercise, and elevation. 01/26/24: goal met STG Duration goal met Jail Goal (LTG) Patient to be able to self manage all aspects of her lymphedema including donning and doffing appropriate compression garments and use of sequential pneumatic pump 02/16/24: goal progress, still has challenged with donning Bioflect compression tights and is poorlycompliant to wearing velcro compression wraps on knees due to difficulty. 05/18/24: Did not bring wraps today, unable to don independently. Has worn Bioflect a few times since last seen but is exhausted by donning. Has been in hotel 1x since last seen and was then able to use pump. Is on list for affordable housing but hasn't heard anything; living in car which makes management of lymphedema very challenging . LTG Duration 11/15/23 Three Impairment gait impairment Impairment uses FWW and doesn't go out of the house other than for medical appointments [place] Hand Goal (LTG) Patient able to ambulate for at least 10 minutes with least restrictive device 01/26/24: continues to use 4WW but limited activity tolerance due to cancer fatigue. 02/16/24: goal progress, and just this week has been able to resume Sci-Fit recumbant elliptical due to decreased weight of legs, improved activity tolerance. Can walk for 4 min max before requiring a rest. 05/18/24: tries to take a walk at least couple times per day LTG Duration 11/15/23 Progress Towards Goals Progress Towards Goals Slow Progress due to Activity Tolerance,Slow Progress due to Medical Issues,Slow Progress - Other Progress Comments financial limitations unhoused status active cancer of uterus Assessment Summary Assessment Patient circumferential measurements increased as above after spending whole day out of bed, 2 other appointments and not able to tolerate wearing compression due to abdominal discomfort from CA. Decreased with treatment today, will elevate legs at home, use pump, and try compression again tomorrow . More supine and seated ther ex today due to left knee pain after last session. Physical Therapy Plan Frequency and Duration Frequency of Treatment 20 visits Duration of treatment (weeks) 12 Plan of Care Start Date 08/16/24 Plan of Care End Date 11/15/23 Therapeutic Interventions Therapeutic Interventions Gait Training,Home Exercise Program,Lymphedema Management, Manual Therapy,Patient/ Caregiver Education,Self-Care/ Home Management,Soft Tissue Mobilization,Therapeutic Activities Modalities Vasopneumatic Devices Next Visit Focus/Plan Next Note Type Treatment Note Next Visit Plan Anticipate 2 further PT treatments prior to patient surgery on . Continue 2x next week to assure good lymphedema management, and continue strengthening prior to surgery Will discharge from PT end of next week.
--- NOTE | 2024-09-17 15:11 | PT.OTN ---
Current Diagnoses Lymphedema, not elsewhere classified (09/17/24) Physical Therapy Treatment Note PT-OP-A Visit Information Start: 11/24/23 08:48 Freq: Status: Active Protocol: Document 09/17/24 13:45 SAK (Rec: 09/17/24 14:28 SAK [id number]) Out-Patient Physical Therapy Visit Information Visit Information Visit Type Treatment Note Visit Start Time 13:46 Visit Stop Time 15:11 Visit Number 44 Evaluation Information Evaluation Date 11/24/23 Precautions Precautions uterine CA PT-OP-B Current Condition Start: 11/24/23 08:48 Freq: Status: Active Protocol: Document 09/17/24 13:45 SAK (Rec: 09/17/24 14:28 SAK [id number]) Current Condition History of Current Condition Onset Date 2+ years Current Complaints lymphedema bilateral LE's History of Current Condition Patient has long history of lymphedema stella LE's, previously seen in this clinic . Discharged from PT after wounds healed, fit for bilateral velcro compression wraps. Patient has now developed multiple new wounds and her lymphedema has worsened. Contributing factors are treatment for pelvic cancer, currently receiving chemotherapy treatments, as well as homelessness and difficulty performing self management program, plus obesity. States she cant bend to put on velcro wraps, has been wearing compression tights: Bioflect. Prior Treatments and Tests prior wound care and lymphedema management PT-OP-C Subjective Start: 11/24/23 08:48 Freq: Status: Active Protocol: Document 09/17/24 13:45 SAK (Rec: 09/17/24 14:28 SAK [id number]) OP-PT Subjective Patient Comments Patient Comments Got new Bioflect garments, hasn't tried putting on yet, one size smaller. Has surgery in 1 week. Poor sleep last night. Knee a little better afer it giving way 2 sessions ago with walking in parallel bars but still sore. PT-OP-F Manual Assessment Start: 11/24/23 08:48 Freq: Status: Active Protocol: Document 11/24/23 09:30 SAK (Rec: 11/24/23 16:01 SAK [id number]) Manual Assessments Soft Tissue Assessment Soft Tissue Mobility Assessment hyperkeratosis and fibrosis bilateral lower legs PT-OP-G Mobility & Gait Start: 11/24/23 08:48 Freq: Status: Active Protocol: Document 11/24/23 09:30 [facility] (Rec: 11/24/23 16:01 [facility] [id number]) OP Gait Assessment Gait Gait Assistance Required: Independent Assistive Devices Assistive Device Front Wheeled Walker Gait Deviations General Gait Pattern Antalgic,Decreased Stride Length,Decreased Feet Clearance Factors Limiting Gait Function Factors Limiting Gait Function Decreased Activity Tolerance, Decreased Strength PT-OP-K Range of Motion Start: 11/24/23 08:48 Freq: Status: Active Protocol: Document 11/24/23 09:30 [facility] (Rec: 11/24/23 16:01 [facility] [id number]) Hip Goniometric Range of Motion Hip stella Hip ROM WFL No Comments mod decrease Hip ROM Limitations Hip ROM Limitations Soft Tissue Tightness,Muscle Weakness Knee Goniometric Range of Motion Knee stella Knee ROM WFL No Comments flexion limited by tissue approximation Ankle and Foot Goniometric Range of Motion Ankle and Foot stella Ankle/Foot ROM WFL Yes PT-OP-L Special Tests Start: 11/24/23 08:48 Freq: Status: Active Protocol: Document 11/24/23 09:30 [facility] (Rec: 11/24/23 16:02 [facility] [id number]) Special Tests Other Special Tests Special Tests Stemmer sign positive bilaterally PT-OP-M Strength Start: 11/24/23 08:48 Freq: Status: Active Protocol: Document 11/24/23 09:30 [facility] (Rec: 11/24/23 16:03 [facility] [id number]) Hip Strength Hip Manual Muscle Testing stella Comments limited to less than 3/5 stella, impacted by both muscle weakness and weight of legs with lymphedema Knee Strength Knee Manual Muscle Testing stella Flexion (S2) 3+ Fair+ Extension (L3) 3+ Fair+ Ankle/Foot Strength Ankle and Foot Manual Muscle Testing stella Dorsiflexion (L4) 4- Good- Plantarflexion (S1) 4- Good- PT-OP-N Lymphedema Start: 11/24/23 08:48 Freq: Status: Active Protocol: Document 09/17/24 13:45 [facility] (Rec: 09/17/24 14:28 [facility] [id number]) Lymphedema Measurements Lower Extremity Circumference Measurements Left Affected MT Heads 24.8 cm Mid-foot 24.8 cm Medial Malleolus 30.7 cm 10 cm From Medial Malleolus 38.5 cm 20 cm From Medial Malleolus 46 cm 30 cm From Medial Malleolus 53 cm 40 cm From Medial Malleolus 61 cm 50 cm From Medial Malleolus 65 cm 60 cm From Medial Malleolus 79.9 cm Knee Joint 57.4 cm right affected MT Heads 25 cm Mid-foot 24.8 cm Medial Malleolus 30.5 cm 10 cm From Medial Malleolus 39.8 cm 20 cm From Medial Malleolus 48.2 cm 30 cm From Medial Malleolus 55.7 cm 40 cm From Medial Malleolus 59 cm 50 cm From Medial Malleolus 62 cm 60 cm From Medial Malleolus 69.9 cm Knee Joint 59 cm PT-OP-Q Treatments Start: 11/24/23 08:48 Freq: Status: Active Protocol: Document 09/17/24 13:45 SAK (Rec: 09/17/24 14:28 [facility] [id number]) Cardio Equipment Recumbent Stepper (Sci-Fit) Duration (Minutes) 15 Resistance 1 Seat Position 10 Therapeutic Exercises Sitting Exercises seated clam Reps/Minutes 10x5 march Reps/Minutes 10x5 LAQ Reps/Minutes 10x5 Lymphedema Treatment Manual Lymphatic Drainage Location right LE, left proximal LE Duration 40 Comments Sequential pneumatic pump on right during MLD left; kept on right due to no bandaging for 2 days, significant increase in size with potential for infection. Noted good reduction after use of pump right Sequential Lymphedema Exercises Comments stella LEs and trunk, UE's to facilitate lymphatic flow Compression Garment Assessment Compression Garment Assessment Details Planned to assist patient donning new Bioflect garment but but agreed not to don today due to still healing abraded skin region and concern over new, tighter Bioflect rubbing on fracile skin Other Other application of Cetaphil lotion after MLD stella le's Wear older Bioflect as able, no bandaging due to raw skin, need open air right now. Continue exercise, increase repetitions PT-OP-R Modalities Start: 11/24/23 08:48 Freq: Status: Active Protocol: Document 09/17/24 13:45 SAK (Rec: 09/17/24 14:28 [facility] [id number]) Compression Pump Treatment Treatment Location stella LEs Pressure Amount (mmHg) (mmHG) 45 Inflation Time (Seconds) 30 Deflation Time (Seconds) 5 Treatment Tolerance Good Treatment Comments right LE during MLD left LE, trunk clearing right LE Pressure Amount (mmHg) (mmHG) 45 Inflation Time (Seconds) 10 Deflation Time (Seconds) 5 Treatment Tolerance Good Treatment Comments during MLD proximal and left LE: PT-OP-T Assessment and Plan Start: 11/24/23 08:48 Freq: Status: Active Protocol: Document 09/17/24 13:45 [facility] (Rec: 09/17/24 14:28 [facility] [id number]) Physical Therapy Assessment Impairments Impairments Activity Tolerance,Edema,Gait, Soft Tissue Mobility Goals Two Impairment Lymphedema life impact scale score 34% Short Term Goal (STG) Decrease score to no greater than24% as measure of improved activity tolerance and quality of life 01/26/24: 30% 02/16/24: dec to 25% 05/22/24: score 23% STG Duration 09/27/23 Half-Way Goal (LTG) Decrease lymphedema life impact scale score to no greater than 15% as measure of improved ability to self manage her lymphedema and improved quality of life LTG Duration 11/15/23 One Impairment lymphedema stella LE's Short Term Goal (STG) Instruct and review all aspects of lymphedema care including skin care, manual lymphatic drainage and use of her lymphedema pump, compression, exercise, and elevation. 01/26/24: goal met STG Duration goal met [place] Goal (LTG) Patient to be able to self manage all aspects of her lymphedema including donning and doffing appropriate compression garments and use of sequential pneumatic pump 02/16/24: goal progress, still has challenged with donning Bioflect compression tights and is poorlycompliant to wearing velcro compression wraps on knees due to difficulty. 05/18/24: Did not bring wraps today, unable to don independently. Has worn Bioflect a few times since last seen but is exhausted by donning. Has been in hotel 1x since last seen and was then able to use pump. Is on list for affordable housing but hasn't heard anything; living in car which makes management of lymphedema very challenging . LTG Duration 11/15/23 Three Impairment gait impairment Impairment uses FWW and doesn't go out of the house other than for medical appointments [place] Goal (LTG) Patient able to ambulate for at least 10 minutes with least restrictive device 01/26/24: continues to use 4WW but limited activity tolerance due to cancer fatigue. 02/16/24: goal progress, and just this week has been able to resume Sci-Fit recumbant elliptical due to decreased weight of legs, improved activity tolerance. Can walk for 4 min max before requiring a rest. 05/18/24: tries to take a walk at least couple times per day LTG Duration 11/15/23 Progress Towards Goals Progress Towards Goals Slow Progress due to Activity Tolerance,Slow Progress due to Medical Issues,Slow Progress - Other Progress Comments financial limitations unhoused status active cancer of uterus Assessment Summary Assessment Most circumferential measurements decreased today compared to last week, patient reports more time with legs elevated. Brought new Bioflect garment for PT to assist with donning first time . Physical Therapy Plan Frequency and Duration Frequency of Treatment 20 visits Duration of treatment (weeks) 12 Plan of Care Start Date 08/16/24 Plan of Care End Date 11/15/23 Therapeutic Interventions Therapeutic Interventions Gait Training,Home Exercise Program,Lymphedema Management, Manual Therapy,Patient/ Caregiver Education,Self-Care/ Home Management,Soft Tissue Mobilization,Therapeutic Activities Modalities Vasopneumatic Devices Next Visit Focus/Plan Next Note Type Treatment Note Next Visit Plan Plan discharge from PT after next visit.
--- NOTE | 2024-09-19 14:23 | PT.OTN ---
Current Diagnoses Lymphedema, not elsewhere classified (09/19/24) Physical Therapy Treatment Note PT-OP-A Visit Information Start: 11/24/23 08:48 Freq: Status: Active Protocol: Document 09/19/24 13:48 SAK (Rec: 09/19/24 14:08 [facility] [id number]) Out-Patient Physical Therapy Visit Information Visit Information Visit Type Treatment Note Visit Start Time 13:46 Visit Stop Time 15:15 Visit Number 45 Evaluation Information Evaluation Date 11/24/23 Precautions Precautions uterine CA PT-OP-B Current Condition Start: 11/24/23 08:48 Freq: Status: Active Protocol: Document 09/19/24 13:48 SAK (Rec: 09/19/24 14:08 [facility] [id number]) Current Condition History of Current Condition Onset Date 2+ years Current Complaints lymphedema bilateral LE's History of Current Condition Patient has long history of lymphedema stella LE's, previously seen in this clinic . Discharged from PT after wounds healed, fit for bilateral velcro compression wraps. Patient has now developed multiple new wounds and her lymphedema has worsened. Contributing factors are treatment for pelvic cancer, currently receiving chemotherapy treatments, as well as homelessness and difficulty performing self management program, plus obesity. States she cant bend to put on velcro wraps, has been wearing compression tights: Bioflect. Prior Treatments and Tests prior wound care and lymphedema management PT-OP-C Subjective Start: 11/24/23 08:48 Freq: Status: Active Protocol: Document 09/19/24 13:48 SAK (Rec: 09/19/24 14:08 [facility] [id number]) OP-PT Subjective Patient Comments Patient Comments No new c/o. Nervous about surgery on Tuesday. Left compression off to allow skin to fully heal. Sees oncologist, has labs, and iron infusion. Has been doing the exercises. Left knee better but cranky. PT-OP-F Manual Assessment Start: 11/24/23 08:48 Freq: Status: Active Protocol: Document 11/24/23 09:30 SAK (Rec: 11/24/23 16:01 [facility] [id number]) Manual Assessments Soft Tissue Assessment Soft Tissue Mobility Assessment hyperkeratosis and fibrosis bilateral lower legs PT-OP-G Mobility & Gait Start: 11/24/23 08:48 Freq: Status: Active Protocol: Document 11/24/23 09:30 SAK (Rec: 11/24/23 16:01 [facility] [id number]) OP Gait Assessment Gait Gait Assistance Required: Independent Assistive Devices Assistive Device Front Wheeled Walker Gait Deviations General Gait Pattern Antalgic,Decreased Stride Length,Decreased Feet Clearance Factors Limiting Gait Function Factors Limiting Gait Function Decreased Activity Tolerance, Decreased Strength PT-OP-K Range of Motion Start: 11/24/23 08:48 Freq: Status: Active Protocol: Document 11/24/23 09:30 [facility] (Rec: 11/24/23 16:01 [facility] [id number]) Hip Goniometric Range of Motion Hip stella Hip ROM WFL No Comments mod decrease Hip ROM Limitations Hip ROM Limitations Soft Tissue Tightness,Muscle Weakness Knee Goniometric Range of Motion Knee stella Knee ROM WFL No Comments flexion limited by tissue approximation Ankle and Foot Goniometric Range of Motion Ankle and Foot stella Ankle/Foot ROM WFL Yes PT-OP-L Special Tests Start: 11/24/23 08:48 Freq: Status: Active Protocol: Document 11/24/23 09:30 [facility] (Rec: 11/24/23 16:02 [facility] [id number]) Special Tests Other Special Tests Special Tests Stemmer sign positive bilaterally PT-OP-M Strength Start: 11/24/23 08:48 Freq: Status: Active Protocol: Document 11/24/23 09:30 [facility] (Rec: 11/24/23 16:03 [facility] [id number]) Hip Strength Hip Manual Muscle Testing stella Comments limited to less than 3/5 stella, impacted by both muscle weakness and weight of legs with lymphedema Knee Strength Knee Manual Muscle Testing stella Flexion (S2) 3+ Fair+ Extension (L3) 3+ Fair+ Ankle/Foot Strength Ankle and Foot Manual Muscle Testing stella Dorsiflexion (L4) 4- Good- Plantarflexion (S1) 4- Good- PT-OP-N Lymphedema Start: 11/24/23 08:48 Freq: Status: Active Protocol: Document 09/19/24 13:48 [facility] (Rec: 09/19/24 14:08 [facility] [id number]) Lymphedema Measurements Lower Extremity Circumference Measurements Left Affected MT Heads 24.7 cm Mid-foot 24.8 cm Medial Malleolus 30.3 cm 10 cm From Medial Malleolus 38.5 cm 20 cm From Medial Malleolus 46.2 cm 30 cm From Medial Malleolus 56.3 cm 40 cm From Medial Malleolus 63 cm 50 cm From Medial Malleolus 64.8 cm 60 cm From Medial Malleolus 80 cm Knee Joint 57.8 cm right affected MT Heads 25.5 cm Mid-foot 24.7 cm Medial Malleolus 30.6 cm 10 cm From Medial Malleolus 42.2 cm 20 cm From Medial Malleolus 49.1 cm 30 cm From Medial Malleolus 53.9 cm 40 cm From Medial Malleolus 63.1 cm 50 cm From Medial Malleolus 65.9 cm 60 cm From Medial Malleolus 72 cm Knee Joint 57.9 cm PT-OP-Q Treatments Start: 11/24/23 08:48 Freq: Status: Active Protocol: Document 09/19/24 13:48 KATIA (Rec: 09/19/24 14:08 [facility] [id number]) Cardio Equipment Recumbent Stepper (Sci-Fit) Duration (Minutes) 15 Resistance 1 Seat Position 10 Lymphedema Treatment Other Other application of Cetaphil lotion after MLD stella le's Wear older Bioflect as able, no bandaging due to raw skin, need open air right now. Continue exercise, increase repetitions PT-OP-R Modalities Start: 11/24/23 08:48 Freq: Status: Active Protocol: Document 09/19/24 13:48 [facility]ATIA (Rec: 09/19/24 14:08 [facility] [id number]) Compression Pump Treatment Treatment Location stella LEs Pressure Amount (mmHg) (mmHG) 45 Inflation Time (Seconds) 30 Deflation Time (Seconds) 5 Treatment Tolerance Good Treatment Comments right LE during MLD left LE, trunk clearing right LE Pressure Amount (mmHg) (mmHG) 45 Inflation Time (Seconds) 10 Deflation Time (Seconds) 5 Treatment Tolerance Good Treatment Comments during MLD proximal and left LE: PT-OP-T Assessment and Plan Start: 11/24/23 08:48 Freq: Status: Active Protocol: Document 09/19/24 13:48 KATIA (Rec: 09/19/24 14:08 [facility] [id number]) Physical Therapy Assessment Impairments Impairments Activity Tolerance,Edema,Gait, Soft Tissue Mobility Goals Two Impairment Lymphedema life impact scale score 34% Short Term Goal (STG) Decrease score to no greater than24% as measure of improved activity tolerance and quality of life 01/26/24: 30% 02/16/24: dec to 25% 05/22/24: score 23% STG Duration goal met Penitentiary Goal (LTG) Decrease lymphedema life impact scale score to no greater than 15% as measure of improved ability to self manage her lymphedema and improved quality of life 09/19/24:not fully met LTG Duration 11/15/23 One Impairment lymphedema stella LE's Short Term Goal (STG) Instruct and review all aspects of lymphedema care including skin care, manual lymphatic drainage and use of her lymphedema pump, compression, exercise, and elevation. 01/26/24: goal met STG Duration goal met Penitentiary Goal (LTG) Patient to be able to self manage all aspects of her lymphedema including donning and doffing appropriate compression garments and use of sequential pneumatic pump 02/16/24: goal progress, still has challenged with donning Bioflect compression tights and is poorlycompliant to wearing velcro compression wraps on knees due to difficulty. 05/18/24: Did not bring wraps today, unable to don independently. Has worn Bioflect a few times since last seen but is exhausted by donning. Has been in hotel 1x since last seen and was then able to use pump. Is on list for affordable housing but hasn't heard anything; living in car which makes management of lymphedema very challenging . 09/19/24: goals met LTG Duration 11/15/23 Three Impairment gait impairment Impairment uses FWW and doesn't go out of the house other than for medical appointments Business Change Manager Goal (LTG) Patient able to ambulate for at least 10 minutes with least restrictive device 01/26/24: continues to use 4WW but limited activity tolerance due to cancer fatigue. 02/16/24: goal progress, and just this week has been able to resume Sci-Fit recumbant elliptical due to decreased weight of legs, improved activity tolerance. Can walk for 4 min max before requiring a rest. 05/18/24: tries to take a walk at least couple times per day 09/19/24: Continues to use 4WW, flexed at trunk , speed has increased to functional community speed LTG Duration 11/15/23 Progress Towards Goals Progress Towards Goals Progressing Toward Goals Progress Comments Patient now has housing surgery for uterine cancer next week Physical Therapy Plan Frequency and Duration Frequency of Treatment 20 visits Duration of treatment (weeks) 12 Plan of Care Start Date 08/16/24 Plan of Care End Date 11/15/23 Therapeutic Interventions Therapeutic Interventions Gait Training,Home Exercise Program,Lymphedema Management, Manual Therapy,Patient/ Caregiver Education,Self-Care/ Home Management,Soft Tissue Mobilization,Therapeutic Activities Modalities Vasopneumatic Devices Discharge Physical Therapy Discharge Reasons Change in Medical Status Discharge Comments having surgery. Good progress toward goals.
== END 2024-09-27 15:08 | disposition home or self-care (01) ==
LOC: PHYS 13:45
PROVIDERS: Family Provider Student in an Organized Health Care Education/Training Program; PCP Student in an Organized Health Care Education/Training Program; Referring Provider Surgery; Visit Provider Surgery
DX: I89.0 Lymphedema, not elsewhere classified (principal)
CPT/HCPCS: 29581; 97016; 97110; 97116; 97140; 97163; 97530; 97535